=== PATIENT | female | born 1960 | race Caucasian/White ===

== ENCOUNTER 2017-02-22 12:48 | Inpatient (IN) | payer MEDICARE, SELFPAY ==
[2017-02-22] VITALS (14 sets, daily range): BP systolic 126–142; BP diastolic 58–65; PULSE 80–99; RESP 14–27; TEMP 36.4–36.9; O2SAT 86–100; BMI 34.7; BMI 34.6
--- NOTE | 2017-02-22 15:23 | EKG12_ITS ---
Test Reason : POSBLOOD CULTURE Blood Pressure : / mmHG Vent. Rate : 093 BPM Atrial Rate : 093 BPM P-R Int : 144 ms QRS Dur : 074 ms QT Int : 356 ms P-R-T Axes : 039 064 038 degrees QTc Int : 442 ms Normal sinus rhythm Nonspecific ST abnormality Abnormal ECG Confirmed by NEHA FARIAS, AYLEEN ([id number]), dictionary editor FAISAL CLEMENTE ([id number] on 02/26/2017 3:04:01 PM Referred By: LEONARD Confirmed By:AYLEEN SOLOMON MD
--- NOTE | 2017-02-22 16:03 | RAD_ITS ---
STUDY: X-RAY CHEST REASON FOR EXAM: Female, 56 years old. Cough TECHNIQUE: Single AP portable view of the chest. COMPARISON: 03/05/2015, 03/05/2016, 02/21/2017. FINDINGS: Continued extensive airspace disease throughout the right lung possibly slightly worse. Volume loss on the right. Probable small right effusion. Left lung is normal. Heart size normal. Bones and soft tissues unremarkable. RAD/Chest 1 View (Portable) IMPRESSION: Similar to worsening airspace disease throughout the right lung. Electronically Signed: Fernando Lamas MD at 16:41 EST , Service support ,
--- NOTE | 2017-02-22 16:10 | ED.VISSUMM ---
- ER Visit Summary Date of Service: 02/22/17 Chief Complaint: Positive blood culture History of Present Illness: The patient is a 56 F presenting after being called for positive blood culture. Patient was seen in the ED yesterday. She was diagnosed with influenza. She was started on Tamiflu. She is on chemotherapy with her last chemo being 2 weeks ago. She has a history of lung and endometrial cancer. She is on dialysis Sunday. She did receive her full dialysis today. She has been having fever and chills at home. Her temperature has been up to 100.9 at home. She complains of dyspnea and productive cough. Her blood culture from yesterday showed gram-positive rods. Physical Examination: Vitals are stable. Patient is afebrile. Alert no acute distress. HEENT exam is unremarkable. Neck is supple. Lungs rhonchi right lung, diminished lung sounds. Heart is regular rate and rhythm. Abdomen is soft nontender nondistended. Extremities are unremarkable. Skin is warm and dry. No focal neurologic deficit. Remainder of exam is unremarkable. Emergency Department Course and Treatment: EKG is sinus rate of 93 with no acute ischemic changes. Chest x-ray shows similar to worsening airspace disease right lung. Blood and urine cultures were sent. She is given Zosyn and Vancomycin IV. CBC shows white count 2.6, hemoglobin 8.1, platelets 149. INR is 1.1. Chemistries show BUN 22, creatinine 5.27. Lactic acid is normal. Discussed with Dr. Murphy for admission. Disposition: Admission Impression: Influenza, pneumonia, bacteremia This note was generated with [employer] dictation software. It may contain incorrect words, spelling, and punctuation that were not noted in review of the chart prior to signing ED Disposition - Plan for ED Patient: Chief Complaint: Abn Labs
[2017-02-22] MEDS: Piperacil/Tazobactam 3.375 GM/50 ML ML IV (16:32)
[2017-02-22 16:51] LABS: International Normalized Ratio 1.1; Prothrombin Time (Protime)PT. 13.7 SECONDS (11.7-14.9)
[2017-02-22 16:53] LABS: Partial Thromboplast Time 45.5 Seconds (24.1-36.2)
[2017-02-22 16:54] LABS: Absolute Lymphocyte Count 0.35 X10^3/ul (0.83-4.51); Absolute Neutrophil Count 1.9 X10^3/uL (2.0-7.7); Eosinophil# 0.09 X10^3/uL; Eosinophils% 3.5 % (0-5); Hematocrit 25.6 % (37-47); Hemoglobin 8.1 g/dl (12.0-15.0); Lymphocyte # 0.35 X10^3/ul (4.0); Lymphocyte % 13.7 % (19-41); Mean Corp Hgb Conc 31.6 g/gl (32-36); Mean Corpuscular Hgb 29.5 pg (27.0-32.0); Mean Corpuscular Volume 93.1 fL (81-99); Mean Platelet Vol. 9.5 fl (6.2-12.0); Monocyte# 0.27 X10^3/uL; Monocyte% 10.5 % (0-10); Neutrophil # 1.85 X10^3/uL (2.7-7.7); Neutrophil % 72.3 % (47-70); Platelet Count 149 K/mm3 (150-450); RBC Distribution Width CV 17.5 % (11.6-14.6); RBC Distribution Width SD 59.8 fl (35.1-43.9); Red Blood Count 2.75 M/mm3 (4.2-5.4); White Blood Count 2.6 K/mm3 (4.4-11.0)
[2017-02-22 17:00] LABS: Differential Indicated SCAN CRITERIA MET; POSITIVE COUNT NO; POSITIVE DIFFERENTIAL YES; POSITIVE MORPHOLOGY NO
[2017-02-22 17:10] LABS: Lactic Acid 0.8 mmol/L (0.4-2.0)
[2017-02-22 17:15] LABS: Differential Comment SCANNED
--- NOTE | 2017-02-22 18:04 | HP.PCM_ITS ---
Problem List (1) Influenza A Status: Acute Comment: 02/22/16 Influenza A (2) HCAP (healthcare-associated pneumonia) Status: Acute (3) Bacteremia Status: Acute Comment: 02/22/16 Bld Cx preliminary Gram positive keyla (4) End-stage renal disease on hemodialysis Status: Chronic (5) Endometrial cancer Status: Chronic Comment: Status post hysterectomy, cystectomy and partial colectomy due to metastatic disease (6) History of colostomy Status: Chronic (7) History of hysterectomy for cancer Status: Chronic (8) History of ileal conduit Status: Chronic (9) History of nephrectomy Status: Chronic (10) Hypertension Status: Chronic Qualifiers: Hypertension type: essential hypertension (11) Obesity (BMI 30-39.9) Status: Chronic History of Present Illness Date of Admission: 02/22/17 Chief Complaint: Cough, congestion, dyspnea, fever, chills. The patient is a 56 y/o F w/ PMHx: Endometrial CA, Colon CA s/p Colostomy and Ileal Conduit, Current Lung CA undergoing Chemotherapy w/ Dr. Arteaga (most recent 2 weeks prior), HTN, HLD, Obesity, ESRD on HD, AOCD who presents to the [facility] ED on 02/22/17 w/ history of ongoing productive cough, congestion, dyspnea, rhinorrhea, fever, chills progressively worsening since 02/19/17, seen in the ED on 02/21/17 with Dx Influenza A and discharge to home tamiflu; however, she did not improvement and noted worsened dyspnea sensation and cough. In the ED work- up included T 98.5, HR 91, BP 141/65, RR 18, 86% on RA-->100% on 2L NC, CBC w/ WBC 2.6, Hgb 8.1, Plts 149 with decreased ANC 1.9, unremarkable coags, CMP w/ CO2 34, BUN/Cr 22/5.27, LA 0.8, 1/2 Bld Cx 02/21/17 with GPR, repeat Bld Cx x 2 pending upon current presentation, CXR with worsened appearance R lung, does have chronic changes but worsened appearance, concern for PNA. In the ED patient administered vanc and zosyn. Past Medical History Past Medical History (Chronic Problems): Chronic Problems Endometrial cancer (Chronic) Status post hysterectomy, cystectomy and partial colectomy due to metastatic disease End-stage renal disease on hemodialysis (Chronic) History of hysterectomy for cancer (Chronic) History of nephrectomy (Chronic) Anemia of chronic renal failure, stage 5 (Chronic) Anemia of chronic renal failure (Chronic) Hypertension (Chronic) Obesity (BMI 30-39.9) (Chronic) History of colostomy (Chronic) History of ileal conduit (Chronic) Allergies No Known Allergies Allergy (Verified 02/22/17 12:48) Home Medications: Ambulatory Orders Medication Instructions Recorded Calcium Acetate [Phoslo Gel Cap] 2 cap PO DAILY 07/23/14 Docusate Sodium [Colace] 100 mg PO BID 07/23/14 Folic Acid 1 mg PO DAILY@0800 07/23/14 Amlodipine [Norvasc] 10 mg PO DAILY 02/14/15 Lisinopril [Zestril] 20 mg PO BID 02/14/15 Ergocalciferol [Vitamin D] 50,000 unit PO QMONTH 03/02/16 Famotidine [Pepcid AC] 10 mg PO DAILY 03/02/16 Acetaminophen [Tylenol] 650 mg PO BID PRN 02/16/17 Oseltamivir Phosphate [Tamiflu] 30 mg PO BID 02/22/17 Surgical History: hysterectomy - for cervical cancer, - - Left nephrectomy for cancer with rt ileoconduit, Colostomy, Hysterectomy with BL RAHEEL, AVF RUE. 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 Denies: Weight Change HEENT: Reports: Nasal Congestion, Post Nasal Drip, Sinus Congestion, Sore Throat. Denies: Head Aches, Sinus Drainage Cardiovascular: Denies: Chest Pain, Palpitations Respiratory: Reports: Cough, Shortness of Breath, Shortness of breath at rest, Shortness of breath upon exertion, Sputum production Gastrointestinal: Denies: Abdominal Pain, Nausea, Vomiting Genitourinary: Denies: Dysuria Musculoskeletal: Reports: Back Pain. Denies: Joint Pain, Joint Tenderness Skin: Denies: Rash, Wounds Neurological: Denies: Numbness, Tingling, Focal weakness Psychiatric: Denies: Anxiety, Depression, Homicidal Ideations, Suicidal Ideations Hematologic/ Lymphatic: Denies: Easy Bruising, Easy Bleeding VTE Information - Inpt Only VTE Present on Admission: No VTE Mechan Device Prophylaxis: SCD's VTE Pharm Prophylaxis ordered?: Yes Subjective: Seated upright in the ED bed, fatigued appearance, ill appearing. Objective: Physical Examination: General: awake, alert, oriented x 3 and cooperative, seated upright in the ED be , fatigued appearance, ill appearing. Skin: normal color, turgor, no icterus, cyanosis. HEENT: AT/NC, EOMI, PERRLA, dry MM, posterior OP erythema, no carotid bruits or JVD noted. Lungs: Severely diminished, > R, coarse BL, > R, poor effort, no wheezing. Heart: Regular rate and rhythm; no gallop, rub audible. Abdomen: soft, obese, colostomy and ilea conduit in place, NTTP, ND, normal BS, no HSM. Extremities: no cyanosis, clubbing, or edema, RUE AVF + thrill. Neurological: patient awake, alert, oriented x 3; cognitive function intact; pupils equally reactive to light and accomodation; cranial nerves II-XII grossly normal, moving all 4 extremities, no focal deficits, strength severely globally decreased secondary to acute presentation. Psychiatric: affect appears flat, fatigued, no acute evidence of depressive or anxiety feelings. - Physical Exam Vital Signs Temp Pulse Resp BP Pulse Ox 98.2 F 80 27 H 126/64 H 86 02/22/17 15:56 02/22/17 17:23 02/22/17 17:23 02/22/17 17:23 02/22/17 17:23 Oxygen Flow Rate 2 Oxygen Delivery Method Nasal Cannula Weight: 189 lb 13.088 oz Body Mass Index (BMI) 34.7 Laboratory Tests Past 24 Hrs 02/22/17 02/22/17 02/22/17 16:15 16:15 16:15 WBC 2.6 L RBC 2.75 L Hgb 8.1 L Hct 25.6 L MCV 93.1 MCH 29.5 MCHC 31.6 L RDW 17.5 H RDW Differential 59.8 H Plt Count 149 L MPV 9.5 Immature Gran % (Auto) 0.000 Neut % (Auto) 72.3 H Lymph % (Auto) 13.7 L [place] % (Auto) 10.5 H Eos % (Auto) 3.5 Baso % (Auto) 0.0 Absolute Neuts (auto) 1.9 L Absolute Lymphs (auto) 0.35 L Total Counted Not Reportable Differential Comment SCANNED PT 13.7 INR 1.1 APTT 45.5 H Sodium Cancelled Potassium Cancelled Chloride Cancelled Carbon Dioxide Cancelled Anion Gap Cancelled BUN Cancelled Creatinine Cancelled Estim Creat Clear Calc Cancelled Est GFR (MDRD) Af Amer Cancelled Est GFR (MDRD) Non-Af Cancelled BUN/Creatinine Ratio Cancelled Glucose Cancelled Lactic Acid Calcium Cancelled Total Bilirubin Cancelled AST Cancelled ALT Cancelled Alkaline Phosphatase Cancelled Total Protein Cancelled Albumin Cancelled Globulin Cancelled Albumin/Globulin Ratio Cancelled 02/22/17 02/22/17 16:15 17:30 WBC RBC Hgb Hct MCV MCH MCHC RDW RDW Differential Plt Count MPV Immature Gran % (Auto) Neut % (Auto) Lymph % (Auto) [place] % (Auto) Eos % (Auto) Baso % (Auto) Absolute Neuts (auto) Absolute Lymphs (auto) Total Counted Differential Comment PT INR APTT Sodium Pending Potassium Pending Chloride Pending Carbon Dioxide Pending Anion Gap Pending BUN Pending Creatinine Pending Estim Creat Clear Calc Est GFR (MDRD) Af Amer Pending Est GFR (MDRD) Non-Af Pending BUN/Creatinine Ratio Pending Glucose Pending Lactic Acid 0.8 Calcium Pending Total Bilirubin Pending AST Pending ALT Pending Alkaline Phosphatase Pending Total Protein Pending Albumin Pending Globulin Albumin/Globulin Ratio Assessment/Plan The patient is a 56 y/o F w/ PMHx: Endometrial CA, Colon CA s/p Colostomy and Ileal Conduit, Current Lung CA undergoing Chemotherapy w/ Dr. Arteaga (most recent 2 weeks prior), HTN, HLD, Obesity, ESRD on HD, AOCD who presents to the [facility] ED on 02/22/17 w/ history of ongoing productive cough, congestion, dyspnea, rhinorrhea, fever, chills progressively worsening since 02/19/17, seen in the ED on 02/21/17 with Dx Influenza A and discharge to home tamiflu; however, she did not improvement and noted worsened dyspnea sensation and cough. (1) Acute Bacteremia secondary to Acute Influenza A Viral Syndrome with suspected concurrent HCAP Pneumonia: Will admit to [facility] on telemetry, maintain on oxygen with wean as tolerated to room air, continue ATC duonebs, PRN albuterol, maintained on IV Zosyn and Vancomycin, Tamiflu, HOB, IS parameters w/ pending sputum cultures and urine antigens. Bld cx x 2 obtained in the ED with 02/20 Bld C x + GPR. ID consulted given presentation. (2) Lung Cancer, Unclear Type and Unclear Staging: Ongoing chemotherapy, last 2 weeks prior, ongoing 2nd hand tobacco exposure, following w/ Dr. Arteaga. Will obtain mag, phos, supplement if appropriate. (3) Hx Endometrial, Cervical CA, Colon CA: Remission. s/p Nephrectomy, Colon Resection, Bladder resection w/ placement ileal conduit and colostomy. 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 (4) ESRD: ESRD on HD, HD scheduled T, TH, Sat. Nephrology consulted. Gently hydrating given presentation. (5) AOCD: Admission Hgb 8.1, noted recent transfusion history. (6) GERD: Famotidine. (7) DVT Prophylaxis: SCDs, heparin. Code Visit Inpatient E&M: 91454 Init Hosp L3
[2017-02-22 18:16] LABS: ALB/GLOB Ratio 0.7 RATIO (0.9-2.4); AST(SGOT) 17 U/L (15-37); Alanine Aminotransfer ALT/SGPT 14 U/L (12-78); Albumin, Serum 2.8 g/dL (3.4-5.0); Alkaline Phosphatase 81 U/L (45-117); Anion Gap 6 (5-15); BUN 22 mg/dL (7-18); BUN/Creat Ratio 4.2 RATIO (10-20); Calcium,Total 8.2 mg/dL (8.5-10.1); Chloride 99 mmol/L (98-107); Creatinine, Serum 5.27 mg/dL (0.55-1.02); EST Glomerular Filtration Rate 9 mL/min (>60); Est Glom Filt Rate - Afr Amer 11 mL/min (>60); Estimated Creatinine Clearance 9.65 ml/min; Glucose 84 mg/dL (70-110); Potassium 3.9 mmol/L (3.5-5.1); Protein, Total 6.8 g/dL (6.4-8.2); Sodium Level 139 mmol/L (136-145)
--- NOTE | 2017-02-22 18:35 | NURSING ---
MED SURG HCAP, FLU A, BACTEREMIA WHITE
[2017-02-22] MEDS: 0.9% Normal Saline 1,000 ML 75 ML IV (20:15)
[2017-02-22 20:25] LABS: Phosphorus 2.9 mg/dL (2.5-4.9)
[2017-02-22] MEDS: Heparin Injection 5,000 UNITS/ML Syringe 5000 UNITS SC (21:55)
[2017-02-22] MEDS: Lisinopril 20 MG Tablet PO (21:55)
[2017-02-22] MEDS: Oseltamivir Phosphate 30 MG Capsule PO (21:55)
[2017-02-22] MEDS: Famotidine 20 MG Tablet PO (21:55)
[2017-02-22] MEDS: guaiFENesin 600 MG Tablet 1200 MG PO (21:55)
[2017-02-22] MEDS: Ipratropium/Albuterol Sulfate 3 ML AMPUL.NEB INHALATION (22:25)
[2017-02-23] VITALS (16 sets, daily range): BP systolic 123–142; BP diastolic 56–63; PULSE 75–106; RESP 16–20; TEMP 36.3–37.2; O2SAT 92–95
[2017-02-23] MEDS: Acetaminophen 325 MG Tablet 650 MG PO (00:08)
[2017-02-23] MEDS: Ipratropium/Albuterol Sulfate 3 ML AMPUL.NEB INHALATION ×6 (02:31→23:08)
[2017-02-23 06:16] LABS: Absolute Lymphocyte Count 0.41 X10^3/ul (0.83-4.51); Absolute Neutrophil Count 1.7 X10^3/uL (2.0-7.7); Basophil# 0.01 X10^3/uL; Basophil% 0.4 % (0-1); Eosinophil# 0.07 X10^3/uL; Hematocrit 23.4 % (37-47); Hemoglobin 7.2 g/dl (12.0-15.0); Lymphocyte # 0.41 X10^3/ul (4.0); Lymphocyte % 17.4 % (19-41); Mean Corp Hgb Conc 30.8 g/gl (32-36); Mean Corpuscular Volume 94.4 fL (81-99); Mean Platelet Vol. 9.4 fl (6.2-12.0); Monocyte# 0.14 X10^3/uL; Neutrophil # 1.71 X10^3/uL (2.7-7.7); Neutrophil % 72.8 % (47-70); Platelet Count 115 K/mm3 (150-450); RBC Distribution Width CV 17.7 % (11.6-14.6); RBC Distribution Width SD 61.3 fl (35.1-43.9); Red Blood Count 2.48 M/mm3 (4.2-5.4); White Blood Count 2.4 K/mm3 (4.4-11.0)
[2017-02-23 06:23] LABS: Differential Indicated SCAN CRITERIA MET; POSITIVE COUNT NO; POSITIVE DIFFERENTIAL YES; POSITIVE MORPHOLOGY NO
[2017-02-23 06:36] LABS: Differential Comment SCANNED
[2017-02-23 07:26] LABS: Vancomycin, Random Level 19.3 ug/mL (0.0-15.0)
[2017-02-23 07:37] LABS: Anion Gap 12 (5-15); BUN 30 mg/dL (7-18); BUN/Creat Ratio 4.8 RATIO (10-20); Calcium,Total 7.7 mg/dL (8.5-10.1); Chloride 100 mmol/L (98-107); Creatinine, Serum 6.27 mg/dL (0.55-1.02); EST Glomerular Filtration Rate 7 mL/min (>60); Est Glom Filt Rate - Afr Amer 9 mL/min (>60); Estimated Creatinine Clearance 8.11 ml/min; Glucose 79 mg/dL (70-110); Potassium 4.1 mmol/L (3.5-5.1); Sodium Level 141 mmol/L (136-145)
--- NOTE | 2017-02-23 09:49 | CASEMGMT ---
RN CM assessment complete. See attached link for full assessment. Disposition Plan: Home Transition Planning/Care Coordination Needs: Patient denies home-going needs. RN CM will continue to follow patient throughout hospital course and will provide case management interventions should needs arise.
[2017-02-23] MEDS: Ondansetron 4 MG/2 ML Vial IV (09:59)
[2017-02-23] MEDS: 0.9% Normal Saline 1,000 ML 75 ML IV (09:59)
[2017-02-23] MEDS: Folic Acid 1 MG Tablet PO (09:59)
[2017-02-23] MEDS: Calcium Acetate 667 MG Capsule 1334 MG PO (09:59)
[2017-02-23] MEDS: guaiFENesin 600 MG Tablet 1200 MG PO ×2 (10:00→22:00)
[2017-02-23] MEDS: Heparin Injection 5,000 UNITS/ML Syringe 5000 UNITS SC ×2 (10:00→22:01)
[2017-02-23] MEDS: Piperacil/Tazobactam 3.375 GM/50 ML ML IV ×2 (10:01)
[2017-02-23] MEDS: Famotidine 20 MG Tablet PO ×2 (10:01→22:00)
[2017-02-23] MEDS: Oseltamivir Phosphate 30 MG Capsule PO (10:01)
[2017-02-23] MEDS: Lisinopril 20 MG Tablet PO ×2 (10:01→22:00)
[2017-02-23] MEDS: amLODIPine 5 MG Tablet 10 MG PO (10:01)
--- NOTE | 2017-02-23 11:45 | CON.PCM_ITS ---
Reason for Consult: Influenza A/pneumonia/bacteremia History of Present Illness: The patient is a 56 year old F [] This is a 56-year-old white female with multiple comorbidities including multiple malignancies including cervical cancer has undergone bowel surgery with a colostomy as well as a urostomy at this time. More recently his developed lung cancer involving her right lung and is currently receiving on chemotherapy who presents with flulike illness low-grade intermittent fevers for the past week. She was found to have a positive influenza A respiratory specimen and was treated with Tamiflu. Her symptoms continued and she was subsequently admitted. She does have an abnormal chest x-ray with extensive right lung disease but she also has lung carcinoma in her right lung. Interestingly her urine strep pneumoniae antigen was positive. Patient also has a positive blood culture for gram-positive keyla. She is currently comfortable on room air denies any pleuritic chest pain no hemoptysis denies any significant gastrointestinal distress she is otherwise hemodynamically stable. Her antimicrobial regimen I reviewed. She has no known drug allergies. - Medical History Past Medical History (Chronic Problems): Chronic Problems Endometrial cancer (Chronic) Status post hysterectomy, cystectomy and partial colectomy due to metastatic disease End-stage renal disease on hemodialysis (Chronic) History of hysterectomy for cancer (Chronic) History of nephrectomy (Chronic) Anemia of chronic renal failure, stage 5 (Chronic) Anemia of chronic renal failure (Chronic) Hypertension (Chronic) Obesity (BMI 30-39.9) (Chronic) History of colostomy (Chronic) History of ileal conduit (Chronic) Allergies/Adverse Reactions: Allergies No Known Allergies Allergy (Verified 02/22/17 12:48) Home Medications: Ambulatory Orders Medication Instructions Recorded Calcium Acetate [Phoslo Gel Cap] 2 cap PO DAILY 07/23/14 Docusate Sodium [Colace] 100 mg PO BID 07/23/14 Folic Acid 1 mg PO DAILY@0800 07/23/14 Amlodipine [Norvasc] 10 mg PO DAILY 02/14/15 Lisinopril [Zestril] 20 mg PO BID 02/14/15 Ergocalciferol [Vitamin D] 50,000 unit PO QMONTH 03/02/16 Famotidine [Pepcid AC] 10 mg PO DAILY 03/02/16 Acetaminophen [Tylenol] 650 mg PO BID PRN 02/16/17 Oseltamivir Phosphate [Tamiflu] 30 mg PO BID 02/22/17 Vital Signs Temp Pulse Resp BP Pulse Ox 98.1 F 79 18 135/57 H 93 02/23/17 10:04 02/23/17 10:55 02/23/17 10:55 02/23/17 10:04 02/23/17 10:55 Oxygen Flow Rate 92 Oxygen Delivery Method Room Air Weight: 85.9 kg Body Mass Index (BMI) 34.6 Laboratory Tests Past 24 Hrs 02/23/17 02/23/17 02/23/17 05:26 05:26 05:26 WBC 2.4 L RBC 2.48 L Hgb 7.2 L Hct 23.4 L MCV 94.4 MCH 29.0 MCHC 30.8 L RDW 17.7 H RDW Differential 61.3 H Plt Count 115 L MPV 9.4 Immature Gran % (Auto) 0.400 Neut % (Auto) 72.8 H Lymph % (Auto) 17.4 L [place] % (Auto) 6.0 Eos % (Auto) 3.0 Baso % (Auto) 0.4 Absolute Neuts (auto) 1.7 L Absolute Lymphs (auto) 0.41 L Total Counted Not Reportable Differential Comment SCANNED Diff Path Review May foll Sodium 141 Potassium 4.1 Chloride 100 Carbon Dioxide 29.0 Anion Gap 12 BUN 30 H Creatinine 6.27 H Estim Creat Clear Calc 8.11 Est GFR (MDRD) Af Amer 9 L Est GFR (MDRD) Non-Af 7 L BUN/Creatinine Ratio 4.8 L Glucose 79 Calcium 7.7 L Random Vancomycin 19.3 H - Other Studies Radiology: [] Other Studies: [] Route of nutrition/ use of supplements: [] Nutritional Intake: [] IV Site: [] Saavedra Catheter: [] Patient is alert does not appear toxic lungs have some coarse breath sounds in right lung heart exam S1-S2 abdomen soft no focal tenderness obese with a colostomy in place as well as a urostomy.. I did review her chest x-ray which shows right lung infiltrate/opacity. CBC and chemistry profile reviewed. Microbiological data also reviewed - Assessment/Plan Antibiotics: [] Assessment/Plan: [] Influenza pneumonia with concern of bacterial superinfection with a positive urine strep pneumoniae antigen. At this point will treat with antiviral therapy as well as ceftriaxone 2 g IV daily. The significance of the gram- positive keyla is unclear I suspect it could be a skin pathogen. Current antibiotic therapy in the form of ceftriaxone and Tamiflu. Continue supportive care.
[2017-02-23 13:22] LABS: Pathologist Review Reviewed
[2017-02-23 13:25] LABS: Pathologist Review Reviewed
--- NOTE | 2017-02-23 14:50 | PCM.CONS.R ---
Problem List (1) End-stage renal disease on hemodialysis Status: Chronic Consultation - Renal 02/23/17 PCP/ Referring MD: Requesting physician: [ESRD Primary care physician: Lawrence Dozier Reason for Consultation:: ESRD - History of Present Illness History of Present Illness: The patient is a 56 year old F well known to us. ESRD on HD TTS schedule. Last HD was yesterday H/o uterine ca s/p colectomy recent diagnosis of lung ca, on chemo Presented with fever, cough Bacteremia - gm positive rods Currently denies any complaints - Allergies Allergies: Allergies No Known Allergies Allergy (Verified 02/22/17 12:48) - Current Medications Current Medications: Current Medications Acetaminophen (Tylenol) 650 mg PO Q4H PRN PRN PRN Reason: FEVER Last Admin: 02/23/17 00:08 Dose: 650 mg Acetaminophen (Tylenol) 650 mg PO Q6H PRN PRN PRN Reason: Mild Pain (scale 0-3)/T>100.7 Albuterol Sulfate (Ventolin Aerosols) 2.5 mg INHALATION Q2H PRN PRN PRN Reason: SHORTNESS OF BREATH Albuterol/Ipratropium (Duoneb) 3 ml INHALATION Q4H.RT [facility] Last Admin: 02/23/17 10:53 Dose: 3 ml Amlodipine Besylate (Norvasc) 10 mg PO DAILY [facility] Last Admin: 02/23/17 10:01 Dose: 10 mg Calcium Acetate (Phoslo Gel Cap) 1,334 mg PO DAILY@0800 [facility] Last Admin: 02/23/17 09:59 Dose: 1,334 mg Docusate Sodium (Colace) 100 mg PO BID [facility] Last Admin: 02/23/17 10:00 Dose: Not Given Famotidine (Pepcid) 20 mg PO BID [facility] Last Admin: 02/23/17 10:01 Dose: 20 mg Folic Acid (Folic Acid) 1 mg PO DAILY@0800 [facility] Last Admin: 02/23/17 09:59 Dose: 1 mg Guaifenesin (Mucinex) 1,200 mg PO BID [facility] Last Admin: 02/23/17 10:00 Dose: 1,200 mg Heparin Sodium (Porcine) () 5,000 units SC BID [facility] Last Admin: 02/23/17 10:00 Dose: 5,000 units Sodium Chloride () 1,000 mls @ 75 mls/hr IV .[id number] [facility] Last Admin: 02/23/17 09:59 Dose: 75 mls/hr Ceftriaxone Sodium 2 gm/ N/A 20 mls @ 240 mls/hr IV Q24 [facility] Lisinopril (Zestril) 20 mg PO BID [facility] Last Admin: 02/23/17 10:01 Dose: 20 mg Magnesium Hydroxide (Milk Of Magnesia) 30 ml PO DAILY PRN PRN PRN Reason: Constipation Morphine Sulfate (Morphine) 2 - 4 mg IV Q3H PRN PRN PRN Reason: Severe Pain (pain scale 6-10) Morphine Sulfate (Morphine) 1 - 2 mg IV Q4H PRN PRN PRN Reason: Moderate Pain (pain scale 4-5) Nutritional Formula (Nepro Carb Steady) 120 ml PO 4X/DAY [facility] Last Admin: 02/23/17 13:39 Dose: Not Given Ondansetron HCl (Zofran) 4 mg IV Q8H PRN PRN PRN Reason: Nausea Last Admin: 02/23/17 09:59 Dose: 4 mg Oseltamivir Phosphate (Tamiflu) 30 mg PO DAILY [facility] Stop: 02/26/17 10:01 Last Admin: 02/23/17 10:01 Dose: 30 mg Oxycodone HCl (Oxyir) 5 mg PO Q4H PRN PRN PRN Reason: Moderate Pain (pain scale 4-5) Sodium Chloride () 5 - 30 ml IV UD PRN PRN Reason: SALINE FLUSH - Past Medical History Past Medical History (Chronic Problems): Chronic Problems Endometrial cancer (Chronic) Status post hysterectomy, cystectomy and partial colectomy due to metastatic disease End-stage renal disease on hemodialysis (Chronic) History of hysterectomy for cancer (Chronic) History of nephrectomy (Chronic) Anemia of chronic renal failure, stage 5 (Chronic) Anemia of chronic renal failure (Chronic) Hypertension (Chronic) Obesity (BMI 30-39.9) (Chronic) History of colostomy (Chronic) History of ileal conduit (Chronic) - Past Surgical History Surgical History: hysterectomy - for cervical cancer, - - Left nephrectomy for cancer with rt ileoconduit, Colostomy, Hysterectomy with BL RAHEEL, AVF RUE. - Social History Smoking Status: Former smoker Alcohol: None Drugs: None - Family History Paternal History Items: No pertinent history Maternal History Items: No pertinent history Review of Systems Constitutional: Denies: Chills, Fever, Weight Change HEENT: Denies: Head Aches, Sinus Congestion, Sinus Drainage Cardiovascular: Denies: Chest Pain, Palpitations Respiratory: Denies: Cough, Shortness of breath at rest, Sputum production Gastrointestinal: Denies: Abdominal Pain, Nausea, Vomiting Genitourinary: Denies: Dysuria Musculoskeletal: Denies: Joint Pain, Joint Tenderness Skin: Denies: Rash, Wounds Neurological: Denies: Numbness, Tingling, Focal weakness Psychiatric: Denies: Anxiety, Depression, Homicidal Ideations, Suicidal Ideations Hematologic/ Lymphatic: Denies: Easy Bruising, Easy Bleeding - Physical Exam General: Alert, Oriented x3, Cooperative HEENT: Atraumatic, PERRLA, EOMI, Normocephalic Neck: Supple, No JVD, Negative Carotid Bruits Lungs: Clear to auscultation, Normal air movement Cardiovascular: Regular rate, No murmurs Abdomen: Bowel Sounds Present, Soft, Non Tender Extremities: No edema, Capillary Refill Less than 3 Seconds Skin: No rashes, No breakdown Musculoskeletal: No Tenderness to Palpation of Joints or Extremities Neurological: Cranial nerves II-XII grossly intact Psych/Mental Status: Normal Affect, Appropriate Vital Signs Temp Pulse Resp BP Pulse Ox 98.1 F 88 20 H 123/63 H 93 02/23/17 14:00 02/23/17 14:00 02/23/17 14:00 02/23/17 14:00 02/23/17 14:00 Oxygen Flow Rate 92 Oxygen Delivery Method Room Air Weight: 85.9 kg Body Mass Index (BMI) 34.6 Intake and Output for Last 24 Hours 02/21/17 02/22/17 02/23/17 23:59 23:59 23:59 Intake Total 2023 Output Total 50 / 50 Balance 1973 Laboratory Tests Past 24 Hrs 02/23/17 02/23/17 02/23/17 05:26 05:26 05:26 WBC 2.4 L RBC 2.48 L Hgb 7.2 L Hct 23.4 L MCV 94.4 MCH 29.0 MCHC 30.8 L RDW 17.7 H RDW Differential 61.3 H Plt Count 115 L MPV 9.4 Immature Gran % (Auto) 0.400 Neut % (Auto) 72.8 H Lymph % (Auto) 17.4 L [place] % (Auto) 6.0 Eos % (Auto) 3.0 Baso % (Auto) 0.4 Absolute Neuts (auto) 1.7 L Absolute Lymphs (auto) 0.41 L Total Counted Not Reportable Differential Comment SCANNED Diff Path Review Reviewed Sodium 141 Potassium 4.1 Chloride 100 Carbon Dioxide 29.0 Anion Gap 12 BUN 30 H Creatinine 6.27 H Estim Creat Clear Calc 8.11 Est GFR (MDRD) Af Amer 9 L Est GFR (MDRD) Non-Af 7 L BUN/Creatinine Ratio 4.8 L Glucose 79 Calcium 7.7 L Random Vancomycin 19.3 H Assessment/Plan ESRD. HD tomorrow as per schedule RLL pneumonia. Flu positive. superimposed bacterial. ID on consult Anemia. Hb has been worsening since she started chemo. Hb at 7.2 now. transfuse if less than 7
--- NOTE | 2017-02-23 14:53 | CON.PCM_ITS ---
Problem List (1) End-stage renal disease on hemodialysis Status: Chronic Consultation - Renal 02/23/17 PCP/ Referring MD: Requesting physician: [ESRD Primary care physician: Lawrence Dozier Reason for Consultation:: ESRD - History of Present Illness History of Present Illness: The patient is a 56 year old F well known to us. ESRD on HD TTS schedule. Last HD was yesterday H/o uterine ca s/p colectomy recent diagnosis of lung ca, on chemo Presented with fever, cough Bacteremia - gm positive rods Currently denies any complaints - Allergies Allergies: Allergies No Known Allergies Allergy (Verified 02/22/17 12:48) - Current Medications Current Medications: Current Medications Acetaminophen (Tylenol) 650 mg PO Q4H PRN PRN PRN Reason: FEVER Last Admin: 02/23/17 00:08 Dose: 650 mg Acetaminophen (Tylenol) 650 mg PO Q6H PRN PRN PRN Reason: Mild Pain (scale 0-3)/T>100.7 Albuterol Sulfate (Ventolin Aerosols) 2.5 mg INHALATION Q2H PRN PRN PRN Reason: SHORTNESS OF BREATH Albuterol/Ipratropium (Duoneb) 3 ml INHALATION Q4H.RT [facility] Last Admin: 02/23/17 10:53 Dose: 3 ml Amlodipine Besylate (Norvasc) 10 mg PO DAILY [facility] Last Admin: 02/23/17 10:01 Dose: 10 mg Calcium Acetate (Phoslo Gel Cap) 1,334 mg PO DAILY@0800 [facility] Last Admin: 02/23/17 09:59 Dose: 1,334 mg Docusate Sodium (Colace) 100 mg PO BID [facility] Last Admin: 02/23/17 10:00 Dose: Not Given Famotidine (Pepcid) 20 mg PO BID [facility] Last Admin: 02/23/17 10:01 Dose: 20 mg Folic Acid (Folic Acid) 1 mg PO DAILY@0800 [facility] Last Admin: 02/23/17 09:59 Dose: 1 mg Guaifenesin (Mucinex) 1,200 mg PO BID [facility] Last Admin: 02/23/17 10:00 Dose: 1,200 mg Heparin Sodium (Porcine) () 5,000 units SC BID [facility] Last Admin: 02/23/17 10:00 Dose: 5,000 units Sodium Chloride () 1,000 mls @ 75 mls/hr IV .[id number] [facility] Last Admin: 02/23/17 09:59 Dose: 75 mls/hr Ceftriaxone Sodium 2 gm/ N/A 20 mls @ 240 mls/hr IV Q24 [facility] Lisinopril (Zestril) 20 mg PO BID [facility] Last Admin: 02/23/17 10:01 Dose: 20 mg Magnesium Hydroxide (Milk Of Magnesia) 30 ml PO DAILY PRN PRN PRN Reason: Constipation Morphine Sulfate (Morphine) 2 - 4 mg IV Q3H PRN PRN PRN Reason: Severe Pain (pain scale 6-10) Morphine Sulfate (Morphine) 1 - 2 mg IV Q4H PRN PRN PRN Reason: Moderate Pain (pain scale 4-5) Nutritional Formula (Nepro Carb Steady) 120 ml PO 4X/DAY [facility] Last Admin: 02/23/17 13:39 Dose: Not Given Ondansetron HCl (Zofran) 4 mg IV Q8H PRN PRN PRN Reason: Nausea Last Admin: 02/23/17 09:59 Dose: 4 mg Oseltamivir Phosphate (Tamiflu) 30 mg PO DAILY [facility] Stop: 02/26/17 10:01 Last Admin: 02/23/17 10:01 Dose: 30 mg Oxycodone HCl (Oxyir) 5 mg PO Q4H PRN PRN PRN Reason: Moderate Pain (pain scale 4-5) Sodium Chloride () 5 - 30 ml IV UD PRN PRN Reason: SALINE FLUSH - Past Medical History Past Medical History (Chronic Problems): Chronic Problems Endometrial cancer (Chronic) Status post hysterectomy, cystectomy and partial colectomy due to metastatic disease End-stage renal disease on hemodialysis (Chronic) History of hysterectomy for cancer (Chronic) History of nephrectomy (Chronic) Anemia of chronic renal failure, stage 5 (Chronic) Anemia of chronic renal failure (Chronic) Hypertension (Chronic) Obesity (BMI 30-39.9) (Chronic) History of colostomy (Chronic) History of ileal conduit (Chronic) - Past Surgical History Surgical History: hysterectomy - for cervical cancer, - - Left nephrectomy for cancer with rt ileoconduit, Colostomy, Hysterectomy with BL RAHEEL, AVF RUE. - Social History Smoking Status: Former smoker Alcohol: None Drugs: None - Family History Paternal History Items: No pertinent history Maternal History Items: No pertinent history Review of Systems Constitutional: Denies: Chills, Fever, Weight Change HEENT: Denies: Head Aches, Sinus Congestion, Sinus Drainage Cardiovascular: Denies: Chest Pain, Palpitations Respiratory: Denies: Cough, Shortness of breath at rest, Sputum production Gastrointestinal: Denies: Abdominal Pain, Nausea, Vomiting Genitourinary: Denies: Dysuria Musculoskeletal: Denies: Joint Pain, Joint Tenderness Skin: Denies: Rash, Wounds Neurological: Denies: Numbness, Tingling, Focal weakness Psychiatric: Denies: Anxiety, Depression, Homicidal Ideations, Suicidal Ideations Hematologic/ Lymphatic: Denies: Easy Bruising, Easy Bleeding - Physical Exam General: Alert, Oriented x3, Cooperative HEENT: Atraumatic, PERRLA, EOMI, Normocephalic Neck: Supple, No JVD, Negative Carotid Bruits Lungs: Clear to auscultation, Normal air movement Cardiovascular: Regular rate, No murmurs Abdomen: Bowel Sounds Present, Soft, Non Tender Extremities: No edema, Capillary Refill Less than 3 Seconds Skin: No rashes, No breakdown Musculoskeletal: No Tenderness to Palpation of Joints or Extremities Neurological: Cranial nerves II-XII grossly intact Psych/Mental Status: Normal Affect, Appropriate Vital Signs Temp Pulse Resp BP Pulse Ox 98.1 F 88 20 H 123/63 H 93 02/23/17 14:00 02/23/17 14:00 02/23/17 14:00 02/23/17 14:00 02/23/17 14:00 Oxygen Flow Rate 92 Oxygen Delivery Method Room Air Weight: 85.9 kg Body Mass Index (BMI) 34.6 Intake and Output for Last 24 Hours 02/21/17 02/22/17 02/23/17 23:59 23:59 23:59 Intake Total 2023 Output Total 50 / 50 Balance 1973 Laboratory Tests Past 24 Hrs 02/23/17 02/23/17 02/23/17 05:26 05:26 05:26 WBC 2.4 L RBC 2.48 L Hgb 7.2 L Hct 23.4 L MCV 94.4 MCH 29.0 MCHC 30.8 L RDW 17.7 H RDW Differential 61.3 H Plt Count 115 L MPV 9.4 Immature Gran % (Auto) 0.400 Neut % (Auto) 72.8 H Lymph % (Auto) 17.4 L [place] % (Auto) 6.0 Eos % (Auto) 3.0 Baso % (Auto) 0.4 Absolute Neuts (auto) 1.7 L Absolute Lymphs (auto) 0.41 L Total Counted Not Reportable Differential Comment SCANNED Diff Path Review Reviewed Sodium 141 Potassium 4.1 Chloride 100 Carbon Dioxide 29.0 Anion Gap 12 BUN 30 H Creatinine 6.27 H Estim Creat Clear Calc 8.11 Est GFR (MDRD) Af Amer 9 L Est GFR (MDRD) Non-Af 7 L BUN/Creatinine Ratio 4.8 L Glucose 79 Calcium 7.7 L Random Vancomycin 19.3 H Assessment/Plan ESRD. HD tomorrow as per schedule RLL pneumonia. Flu positive. superimposed bacterial. ID on consult Anemia. Hb has been worsening since she started chemo. Hb at 7.2 now. transfuse if less than 7
--- NOTE | 2017-02-23 19:20 | PCM.PROGNOTE ---
Subjective: Patient is a 56-year-old female with a past medical history of endometrial cancer, colostomy, ileal conduit, nephrectomy, recent diagnosis of lung cancer now on chemotherapy, hypertension, end stage renal disease on hemodialysis and obesity who presented to the emergency department at [facility] on 02/22/2017 with complaints of cough, congestion, shortness of breath, fever and chills. She had been seen in the emergency room on 02/21/2017 and diagnosed with acute influenza A. 1 of 2 blood cultures done at that time was positive for a gram-positive keyla. Vital signs at presentation to the emergency room were temp 98.5, heart rate 91, blood pressure 141/65, respiratory rate 18 and she was 86% on room air. Significant lab included a white blood cell count of 2.6, hemoglobin 8.1 and platelets of 149,000. Differential showed 72% neutrophils. Serum bicarb was increased at 34 and the BUN was 22 with a creatinine of 5.27. LFTs were within normal limits. Chest x-ray showed continued extensive airspace disease throughout the right lung, possibly worse. She was admitted to the hospital with a diagnosis of suspected pneumonia and hypoxemia. Blood cultures were repeated and she was started on Zosyn and IV vancomycin. Consultation was obtained with Dr. Jadiel Maier from infectious disease today. Since she did not appear toxic he recommended continued antiviral therapy with Tamiflu and discontinuation of Zosyn and vancomycin in favor of ceftriaxone. She was also seen by Dr. King today and will have hemodialysis on Sunday. She has been afebrile since admission and vital signs are stable. Currently she is 93% saturated on room air. Lab today shows persistent leukopenia with a white blood cell count of 2.4. Hemoglobin is low at 7.2 today and platelets are down to 115,000. Electrolytes are within normal limits. Cough is non-productive. Denies CP, N/V, diarrhea, abdominal pain. She still has SOB. - Physical Exam General: Alert, Oriented x3, Cooperative, No apparent distress, - - Nontoxic-appearing HEENT: Atraumatic, PERRLA, EOMI Oral: Moist Mucosa Neck: Supple, Trachea Midline Lungs: Clear to auscultation, No rhonchi, No wheeze, No rales Cardiovascular: Regular rate, Regular Rhythm, Normal S1, Normal S2, No Gallop Abdomen: Bowel Sounds Present, Soft, Non Tender, Non-Distended Extremities: No clubbing, No cyanosis, No edema Skin: No rashes Neurological: Cranial nerves II-XII grossly intact, Neuro grossly intact Psych/Mental Status: Normal Affect, Appropriate Vital Signs Temp Pulse Resp BP Pulse Ox 98.1 F 92 18 123/63 H 93 02/23/17 14:00 02/23/17 19:04 02/23/17 19:04 02/23/17 14:00 02/23/17 15:20 Oxygen Flow Rate 92 Oxygen Delivery Method Room Air Weight: 189 lb 6.033 oz Body Mass Index (BMI) 34.6 Intake and Output for Last 24 Hours 02/21/17 02/22/17 02/23/17 23:59 23:59 23:59 Intake Total 2741 / 2741 Output Total 50 / 50 Balance 2691 / 2691 Laboratory Tests Past 24 Hrs 02/23/17 02/23/17 02/23/17 05:26 05:26 05:26 WBC 2.4 L RBC 2.48 L Hgb 7.2 L Hct 23.4 L MCV 94.4 MCH 29.0 MCHC 30.8 L RDW 17.7 H RDW Differential 61.3 H Plt Count 115 L MPV 9.4 Immature Gran % (Auto) 0.400 Neut % (Auto) 72.8 H Lymph % (Auto) 17.4 L [place] % (Auto) 6.0 Eos % (Auto) 3.0 Baso % (Auto) 0.4 Absolute Neuts (auto) 1.7 L Absolute Lymphs (auto) 0.41 L Total Counted Not Reportable Differential Comment SCANNED Diff Path Review Reviewed Sodium 141 Potassium 4.1 Chloride 100 Carbon Dioxide 29.0 Anion Gap 12 BUN 30 H Creatinine 6.27 H Estim Creat Clear Calc 8.11 Est GFR (MDRD) Af Amer 9 L Est GFR (MDRD) Non-Af 7 L BUN/Creatinine Ratio 4.8 L Glucose 79 Calcium 7.7 L Random Vancomycin 19.3 H Assessment/Plan Day #2 antibiotics-ceftriaxone Impressions 1. Pneumonia-likely secondary to influenza A with possible bacterial superinfection. 2. Influenza A 3. Pancytopenia 4. End-stage renal disease on hemodialysis 5. History of endometrial cancer with subsequent colectomy, ileal conduit, nephrectomy secondary to extensive disease. Now with mets to the lung and currently receiving chemotherapy 6. Hypertension Continue Rocephin Discontinue IV fluids-she is eating and drinking better now Hemodialysis on 02/24 Patient has a nonproductive cough and no sputum has been obtained. 1 of 2 blood cultures drawn in the emergency room on 02/21/2017 is positive for a gram- positive keyla. Hopefully the identification of the gram-positive keyla will be available on 02 24. Repeat blood cultures were drawn on 02/22/2017. Hycodan at bedtime for cough suppression so that she can sleep Robitussin-DM during the day as needed nonproductive cough Continue Tamiflu Code Visit Inpatient E&M: 08252 Subs Hosp L2
--- NOTE | 2017-02-23 19:32 | PN_ITS ---
Subjective: Patient is a 56-year-old female with a past medical history of endometrial cancer, colostomy, ileal conduit, nephrectomy, recent diagnosis of lung cancer now on chemotherapy, hypertension, end stage renal disease on hemodialysis and obesity who presented to the emergency department at [facility] on 02/22/2017 with complaints of cough, congestion, shortness of breath, fever and chills. She had been seen in the emergency room on 02/21/2017 and diagnosed with acute influenza A. 1 of 2 blood cultures done at that time was positive for a gram-positive keyla. Vital signs at presentation to the emergency room were temp 98.5, heart rate 91, blood pressure 141/65, respiratory rate 18 and she was 86% on room air. Significant lab included a white blood cell count of 2.6, hemoglobin 8.1 and platelets of 149,000. Differential showed 72% neutrophils. Serum bicarb was increased at 34 and the BUN was 22 with a creatinine of 5.27. LFTs were within normal limits. Chest x-ray showed continued extensive airspace disease throughout the right lung, possibly worse. She was admitted to the hospital with a diagnosis of suspected pneumonia and hypoxemia. Blood cultures were repeated and she was started on Zosyn and IV vancomycin. Consultation was obtained with Dr. Jadiel Maier from infectious disease today. Since she did not appear toxic he recommended continued antiviral therapy with Tamiflu and discontinuation of Zosyn and vancomycin in favor of ceftriaxone. She was also seen by Dr. King today and will have hemodialysis on Sunday. She has been afebrile since admission and vital signs are stable. Currently she is 93% saturated on room air. Lab today shows persistent leukopenia with a white blood cell count of 2.4. Hemoglobin is low at 7.2 today and platelets are down to 115,000. Electrolytes are within normal limits. Cough is non-productive. Denies CP, N/V, diarrhea, abdominal pain. She still has SOB. - Physical Exam General: Alert, Oriented x3, Cooperative, No apparent distress, - - Nontoxic- appearing HEENT: Atraumatic, PERRLA, EOMI Oral: Moist Mucosa Neck: Supple, Trachea Midline Lungs: Clear to auscultation, No rhonchi, No wheeze, No rales Cardiovascular: Regular rate, Regular Rhythm, Normal S1, Normal S2, No Gallop Abdomen: Bowel Sounds Present, Soft, Non Tender, Non-Distended Extremities: No clubbing, No cyanosis, No edema Skin: No rashes Neurological: Cranial nerves II-XII grossly intact, Neuro grossly intact Psych/Mental Status: Normal Affect, Appropriate Vital Signs Temp Pulse Resp BP Pulse Ox 98.1 F 92 18 123/63 H 93 02/23/17 14:00 02/23/17 19:04 02/23/17 19:04 02/23/17 14:00 02/23/17 15:20 Oxygen Flow Rate 92 Oxygen Delivery Method Room Air Weight: 189 lb 6.033 oz Body Mass Index (BMI) 34.6 Intake and Output for Last 24 Hours 02/21/17 02/22/17 02/23/17 23:59 23:59 23:59 Intake Total 2741 / 2741 Output Total 50 / 50 Balance 2691 / 2691 Laboratory Tests Past 24 Hrs 02/23/17 02/23/17 02/23/17 05:26 05:26 05:26 WBC 2.4 L RBC 2.48 L Hgb 7.2 L Hct 23.4 L MCV 94.4 MCH 29.0 MCHC 30.8 L RDW 17.7 H RDW Differential 61.3 H Plt Count 115 L MPV 9.4 Immature Gran % (Auto) 0.400 Neut % (Auto) 72.8 H Lymph % (Auto) 17.4 L [place] % (Auto) 6.0 Eos % (Auto) 3.0 Baso % (Auto) 0.4 Absolute Neuts (auto) 1.7 L Absolute Lymphs (auto) 0.41 L Total Counted Not Reportable Differential Comment SCANNED Diff Path Review Reviewed Sodium 141 Potassium 4.1 Chloride 100 Carbon Dioxide 29.0 Anion Gap 12 BUN 30 H Creatinine 6.27 H Estim Creat Clear Calc 8.11 Est GFR (MDRD) Af Amer 9 L Est GFR (MDRD) Non-Af 7 L BUN/Creatinine Ratio 4.8 L Glucose 79 Calcium 7.7 L Random Vancomycin 19.3 H Assessment/Plan Day #2 antibiotics-ceftriaxone Impressions 1. Pneumonia-likely secondary to influenza A with possible bacterial superinfection. 2. Influenza A 3. Pancytopenia 4. End-stage renal disease on hemodialysis 5. History of endometrial cancer with subsequent colectomy, ileal conduit, nephrectomy secondary to extensive disease. Now with mets to the lung and currently receiving chemotherapy 6. Hypertension * Continue Rocephin * Discontinue IV fluids-she is eating and drinking better now * Hemodialysis on 02/24 * Patient has a nonproductive cough and no sputum has been obtained. 1 of 2 blood cultures drawn in the emergency room on 02/21/2017 is positive for a gram- positive keyla. Hopefully the identification of the gram-positive keyla will be available on 02 24. Repeat blood cultures were drawn on 02/22/2017. * Hycodan at bedtime for cough suppression so that she can sleep Robitussin- DM during the day as needed nonproductive cough * Continue Tamiflu Code Visit Inpatient E&M: 56987 Subs Hosp L2
[2017-02-23] MEDS: Nepro Liquid 120 ML LIQUID PO (22:01)
[2017-02-24] VITALS (11 sets, daily range): BP systolic 118–122; BP diastolic 56–60; PULSE 75–98; RESP 16–19; TEMP 36.3–36.7; O2SAT 92–98
[2017-02-24] MEDS: Ipratropium/Albuterol Sulfate 3 ML AMPUL.NEB INHALATION ×4 (06:40→18:52)
[2017-02-24 07:23] LABS: Absolute Lymphocyte Count 0.36 X10^3/ul (0.83-4.51); Absolute Neutrophil Count 1.1 X10^3/uL (2.0-7.7); Basophil# 0.01 X10^3/uL; Basophil% 0.6 % (0-1); Eosinophils% 5.7 % (0-5); Hematocrit 20.5 % (37-47); Hemoglobin 6.4 g/dl (12.0-15.0); Lymphocyte # 0.36 X10^3/ul (4.0); Lymphocyte % 20.6 % (19-41); Mean Corp Hgb Conc 31.2 g/gl (32-36); Mean Corpuscular Hgb 29.2 pg (27.0-32.0); Mean Corpuscular Volume 93.6 fL (81-99); Mean Platelet Vol. 9.8 fl (6.2-12.0); Monocyte# 0.15 X10^3/uL; Monocyte% 8.6 % (0-10); Neutrophil # 1.12 X10^3/uL (2.7-7.7); Neutrophil % 63.9 % (47-70); Platelet Count 96 K/mm3 (150-450); RBC Distribution Width CV 17.5 % (11.6-14.6); RBC Distribution Width SD 60.1 fl (35.1-43.9); Red Blood Count 2.19 M/mm3 (4.2-5.4); White Blood Count 1.8 K/mm3 (4.4-11.0)
[2017-02-24 07:26] LABS: Anion Gap 12 (5-15); BUN 43 mg/dL (7-18); BUN/Creat Ratio 5.4 RATIO (10-20); Calcium,Total 7.9 mg/dL (8.5-10.1); Chloride 100 mmol/L (98-107); Creatinine, Serum 7.96 mg/dL (0.55-1.02); EST Glomerular Filtration Rate 6 mL/min (>60); Est Glom Filt Rate - Afr Amer 7 mL/min (>60); Estimated Creatinine Clearance 6.39 ml/min; Glucose 85 mg/dL (70-110); Sodium Level 140 mmol/L (136-145)
[2017-02-24 07:29] LABS: Differential Indicated SCAN CRITERIA MET; POSITIVE COUNT NO; POSITIVE DIFFERENTIAL YES; POSITIVE MORPHOLOGY NO
[2017-02-24] MEDS: Calcium Acetate 667 MG Capsule 1334 MG PO (09:13)
[2017-02-24] MEDS: Lisinopril 20 MG Tablet PO (09:13)
[2017-02-24] MEDS: Famotidine 20 MG Tablet PO (09:13)
[2017-02-24] MEDS: amLODIPine 5 MG Tablet 10 MG PO (09:14)
[2017-02-24] MEDS: Folic Acid 1 MG Tablet PO (09:14)
[2017-02-24] MEDS: Oseltamivir Phosphate 30 MG Capsule PO (09:15)
[2017-02-24] MEDS: Heparin Injection 5,000 UNITS/ML Syringe 5000 UNITS SC (09:15)
[2017-02-24] MEDS: guaiFENesin 600 MG Tablet 1200 MG PO (09:16)
[2017-02-24 09:44] LABS: Differential Comment SCANNED
--- NOTE | 2017-02-24 11:12 | PCM.PN.REN ---
Subjective: HD today - Physical Exam Neck: Supple Lungs: Clear to auscultation Cardiovascular: Regular rate, No murmurs Abdomen: Bowel Sounds Present, Soft, Non Tender Extremities: No edema, Capillary Refill Less than 3 Seconds Neurological: Cranial nerves II-XII grossly intact Psych/Mental Status: Normal Affect, Appropriate Vital Signs Temp Pulse Resp BP Pulse Ox 98.0 F 90 18 122/57 H 97 02/24/17 07:52 02/24/17 09:00 02/24/17 07:52 02/24/17 07:52 02/24/17 07:52 Oxygen Flow Rate 3 Oxygen Delivery Method Nasal Cannula Weight: 85.9 kg Body Mass Index (BMI) 34.6 Intake and Output for Last 24 Hours 02/22/17 02/23/17 02/24/17 23:59 23:59 23:59 Intake Total 2741 / 2741 560 / 560 Output Total 50 / 50 50 / 50 Balance 2691 / 2691 510 / 510 Laboratory Tests Past 24 Hrs 02/23/17 02/24/17 02/24/17 05:26 06:30 06:30 WBC 1.8 L RBC 2.19 L Hgb 6.4 L Hct 20.5 L MCV 93.6 MCH 29.2 MCHC 31.2 L RDW 17.5 H RDW Differential 60.1 H Plt Count 96 L MPV 9.8 Immature Gran % (Auto) 0.600 Neut % (Auto) 63.9 Lymph % (Auto) 20.6 [place] % (Auto) 8.6 Eos % (Auto) 5.7 H Baso % (Auto) 0.6 Absolute Neuts (auto) 1.1 L Absolute Lymphs (auto) 0.36 L Total Counted Not Reportable Differential Comment SCANNED Diff Path Review Reviewed Sodium 140 Potassium 4.0 Chloride 100 Carbon Dioxide 28.0 Anion Gap 12 BUN 43 H Creatinine 7.96 H* Estim Creat Clear Calc 6.39 Est GFR (MDRD) Af Amer 7 L Est GFR (MDRD) Non-Af 6 L BUN/Creatinine Ratio 5.4 L Glucose 85 Calcium 7.9 L Assessment/Plan ESRD. HD today as per schedule RLL pneumonia. Flu positive. superimposed bacterial. ID on consult Anemia. Hb has been worsening since she started chemo. Hb at 7.2 now. transfuse if less than 7
--- NOTE | 2017-02-24 11:43 | PCM.PROGNOTE ---
Subjective: 56-year-old female with a past medical history of endometrial cancer with extensive surgery including ANGIE with BSO, colectomy, colostomy, removal of the bladder and an ileal conduit. Now with lung metastases and undergoing chemotherapy. Admitted to the hospital with influenza A and possible bacterial superinfection. Currently on Rocephin and Tamiflu. Has been seen by infectious disease. All events of the past 24 hours of been reviewed. She has been afebrile. Vital signs are stable. She is 97% saturated on 3 L nasal cannula and oxygen is being weaned down. White blood cell count today is 1.8 with 64% neutrophils and 5.7% eosinophils. This may be due to an allergic reaction to ciprofloxacin which was discontinued on 02/23/2017. Electrolytes are within normal limits and the serum bicarb is normal at 28. 1 of 2 blood cultures drawn in the ER on 02/21/2017 is growing Rhizobium radiobacter. The blood cultures drawn on 02/22/2017 have no growth to date. States she is starting to feel better. Still having a little wheezing when she is up and active. Denies nausea, vomiting, abdominal pain, dysuria, vaginal discharge, sores in her mouth. Last chemotherapy was 2 weeks ago. f - Physical Exam General: Alert, Oriented x3, Cooperative, No apparent distress HEENT: Atraumatic, PERRLA, Normocephalic Oral: Moist Mucosa Neck: Supple, No Nuchal Rigidity Lungs: Clear to auscultation - She initially had mild wheezing in the right upper lobe but after a cough this totally cleared., No rhonchi, No rales Cardiovascular: Regular rate, Regular Rhythm, Normal S1, Normal S2, No murmurs, No rub noted, No Gallop Abdomen: Bowel Sounds Present, Soft, Non Tender, Non-Distended Extremities: No clubbing, No cyanosis, No edema Psych/Mental Status: Normal Affect, Appropriate Vital Signs Temp Pulse Resp BP Pulse Ox 98.0 F 75 18 122/57 H 97 02/24/17 07:52 02/24/17 10:45 02/24/17 10:45 02/24/17 07:52 02/24/17 07:52 Oxygen Flow Rate 3 Oxygen Delivery Method Nasal Cannula Weight: 189 lb 6.033 oz Body Mass Index (BMI) 34.6 Intake and Output for Last 24 Hours 02/22/17 02/23/17 02/24/17 23:59 23:59 23:59 Intake Total 2741 / 2741 560 / 560 Output Total 50 / 50 50 / 50 Balance 2691 / 2691 510 / 510 Laboratory Tests Past 24 Hrs 02/23/17 02/24/17 02/24/17 05:26 06:30 06:30 WBC 1.8 L RBC 2.19 L Hgb 6.4 L Hct 20.5 L MCV 93.6 MCH 29.2 MCHC 31.2 L RDW 17.5 H RDW Differential 60.1 H Plt Count 96 L MPV 9.8 Immature Gran % (Auto) 0.600 Neut % (Auto) 63.9 Lymph % (Auto) 20.6 [place] % (Auto) 8.6 Eos % (Auto) 5.7 H Baso % (Auto) 0.6 Absolute Neuts (auto) 1.1 L Absolute Lymphs (auto) 0.36 L Total Counted Not Reportable Differential Comment SCANNED Diff Path Review Reviewed Sodium 140 Potassium 4.0 Chloride 100 Carbon Dioxide 28.0 Anion Gap 12 BUN 43 H Creatinine 7.96 H* Estim Creat Clear Calc 6.39 Est GFR (MDRD) Af Amer 7 L Est GFR (MDRD) Non-Af 6 L BUN/Creatinine Ratio 5.4 L Glucose 85 Calcium 7.9 L Assessment/Plan Day #3 antibiotics-ceftriaxone Impressions 1. Pneumonia-likely secondary to influenza A with possible bacterial superinfection. Has not been able to produce a sputum. 2. Influenza A 3. Pancytopenia-last chemotherapy 2 weeks ago. Absolute neutrophil count is greater than 1002 no need for Granix 4. End-stage renal disease on hemodialysis 5. History of endometrial cancer with subsequent colectomy, ileal conduit, nephrectomy secondary to extensive disease. Now with mets to the lung and currently receiving chemotherapy 6. Hypertension 7. Bacteremia in 1 of 2 blood cultures drawn in the ER are 02/21/2017 and the culture is growing Rhizobium Radiobacter Continue Rocephin Discontinue IV fluids-she is eating and drinking better now Hemodialysis on 02/24 Patient has a nonproductive cough and no sputum has been obtained. 1 of 2 blood cultures drawn in the emergency room on 02/21/2017 is positive for a Rhizobium Radiobacte. Repeat blood cultures were drawn on 02/22/2017. Hycodan at bedtime for cough suppression so that she can sleep Robitussin-DM during the day as needed nonproductive cough Continue Tamiflu I texted Dr. Maier about the results of the blood culture and he said that is an odd bacteria and he would have to look it up and get back to me. For now will continue the current treatment regimen. If the BC's are still negative on 02/25 she may be able to be discharged. Repeat the CXR in the AM and get a ambulatory pulse ox. Code Visit Inpatient E&M: 28703 Subs Hosp L2
--- NOTE | 2017-02-24 11:53 | PN_ITS ---
Subjective: 56-year-old female with a past medical history of endometrial cancer with extensive surgery including ANGIE with BSO, colectomy, colostomy, removal of the bladder and an ileal conduit. Now with lung metastases and undergoing chemotherapy. Admitted to the hospital with influenza A and possible bacterial superinfection. Currently on Rocephin and Tamiflu. Has been seen by infectious disease. All events of the past 24 hours of been reviewed. She has been afebrile. Vital signs are stable. She is 97% saturated on 3 L nasal cannula and oxygen is being weaned down. White blood cell count today is 1.8 with 64% neutrophils and 5.7% eosinophils. This may be due to an allergic reaction to ciprofloxacin which was discontinued on 02/23/2017. Electrolytes are within normal limits and the serum bicarb is normal at 28. 1 of 2 blood cultures drawn in the ER on 02/21/2017 is growing Rhizobium radiobacter. The blood cultures drawn on 02/22/2017 have no growth to date. States she is starting to feel better. Still having a little wheezing when she is up and active. Denies nausea, vomiting, abdominal pain, dysuria, vaginal discharge, sores in her mouth. Last chemotherapy was 2 weeks ago. f - Physical Exam General: Alert, Oriented x3, Cooperative, No apparent distress HEENT: Atraumatic, PERRLA, Normocephalic Oral: Moist Mucosa Neck: Supple, No Nuchal Rigidity Lungs: Clear to auscultation - She initially had mild wheezing in the right upper lobe but after a cough this totally cleared., No rhonchi, No rales Cardiovascular: Regular rate, Regular Rhythm, Normal S1, Normal S2, No murmurs, No rub noted, No Gallop Abdomen: Bowel Sounds Present, Soft, Non Tender, Non-Distended Extremities: No clubbing, No cyanosis, No edema Psych/Mental Status: Normal Affect, Appropriate Vital Signs Temp Pulse Resp BP Pulse Ox 98.0 F 75 18 122/57 H 97 02/24/17 07:52 02/24/17 10:45 02/24/17 10:45 02/24/17 07:52 02/24/17 07:52 Oxygen Flow Rate 3 Oxygen Delivery Method Nasal Cannula Weight: 189 lb 6.033 oz Body Mass Index (BMI) 34.6 Intake and Output for Last 24 Hours 02/22/17 02/23/17 02/24/17 23:59 23:59 23:59 Intake Total 2741 / 2741 560 / 560 Output Total 50 / 50 50 / 50 Balance 2691 / 2691 510 / 510 Laboratory Tests Past 24 Hrs 02/23/17 02/24/17 02/24/17 05:26 06:30 06:30 WBC 1.8 L RBC 2.19 L Hgb 6.4 L Hct 20.5 L MCV 93.6 MCH 29.2 MCHC 31.2 L RDW 17.5 H RDW Differential 60.1 H Plt Count 96 L MPV 9.8 Immature Gran % (Auto) 0.600 Neut % (Auto) 63.9 Lymph % (Auto) 20.6 Brooke % (Auto) 8.6 Eos % (Auto) 5.7 H Baso % (Auto) 0.6 Absolute Neuts (auto) 1.1 L Absolute Lymphs (auto) 0.36 L Total Counted Not Reportable Differential Comment SCANNED Diff Path Review Reviewed Sodium 140 Potassium 4.0 Chloride 100 Carbon Dioxide 28.0 Anion Gap 12 BUN 43 H Creatinine 7.96 H* Estim Creat Clear Calc 6.39 Est GFR (MDRD) Af Amer 7 L Est GFR (MDRD) Non-Af 6 L BUN/Creatinine Ratio 5.4 L Glucose 85 Calcium 7.9 L Assessment/Plan Day #3 antibiotics-ceftriaxone Impressions 1. Pneumonia-likely secondary to influenza A with possible bacterial superinfection. Has not been able to produce a sputum. 2. Influenza A 3. Pancytopenia-last chemotherapy 2 weeks ago. Absolute neutrophil count is greater than 1002 no need for Granix 4. End-stage renal disease on hemodialysis 5. History of endometrial cancer with subsequent colectomy, ileal conduit, nephrectomy secondary to extensive disease. Now with mets to the lung and currently receiving chemotherapy 6. Hypertension 7. Bacteremia in 1 of 2 blood cultures drawn in the ER are 02/21/2017 and the culture is growing Rhizobium Radiobacter * Continue Rocephin * Discontinue IV fluids-she is eating and drinking better now * Hemodialysis on 02/24 * Patient has a nonproductive cough and no sputum has been obtained. 1 of 2 blood cultures drawn in the emergency room on 02/21/2017 is positive for a Rhizobium Radiobacte. Repeat blood cultures were drawn on 02/22/2017. * Hycodan at bedtime for cough suppression so that she can sleep Robitussin- DM during the day as needed nonproductive cough * Continue Tamiflu I texted Dr. Maier about the results of the blood culture and he said that is an odd bacteria and he would have to look it up and get back to me. For now will continue the current treatment regimen. If the BC's are still negative on 02/25 she may be able to be discharged. Repeat the CXR in the AM and get a ambulatory pulse ox. Code Visit Inpatient E&M: 93515 Subs Hosp L2
[2017-02-25] VITALS (23 sets, daily range): BP systolic 125–145; BP diastolic 56–93; PULSE 74–118; RESP 16–19; TEMP 36.4–36.7; O2SAT 81–100
[2017-02-25] MEDS: guaiFENesin 600 MG Tablet 1200 MG PO ×3 (00:20→21:25)
[2017-02-25] MEDS: Famotidine 20 MG Tablet PO ×3 (00:20→21:25)
[2017-02-25] MEDS: Lisinopril 20 MG Tablet PO ×3 (00:20→21:25)
[2017-02-25 01:14] LABS: Hematocrit 21.2 % (37-47); Hemoglobin 6.7 g/dl (12.0-15.0)
[2017-02-25] MEDS: Albuterol 2.5 MG/3 ML VIAL.NEB. INHALATION (01:30)
--- NOTE | 2017-02-25 05:55 | RAD_ITS ---
STUDY: X-RAY CHEST REASON FOR EXAM: Female, 56 years old. Dyspnea TECHNIQUE: Frontal and lateral views of the chest. COMPARISON: February 22, 2017 FINDINGS: Extensive ill-defined airspace opacities are again noted in the right lung. There is a small right pleural effusion. Normal size heart. Normal mediastinum and nacho. Normal visualized pulmonary arteries. Normal visualized aortic arch and descending thoracic aorta. Normal visualized thoracic spine. Normal visualized ribs, clavicles, and shoulders. There is no demonstrated abnormality of the visualized soft tissue structures of the upper abdomen. RAD/Chest PA and Lateral IMPRESSION: Stable Extensive ill-defined airspace opacities are again noted in the right lung. There is a small right pleural effusion. Electronically Signed: Sulaiman Licona MD at 7:11 EST Tel , Service support ,
[2017-02-25] MEDS: Ipratropium/Albuterol Sulfate 3 ML AMPUL.NEB INHALATION ×5 (06:48→23:45)
[2017-02-25] MEDS: 0.9% NaCl Peripheral Flush Adult/Peds IV ×5 (09:15→21:49)
[2017-02-25] MEDS: Oseltamivir Phosphate 30 MG Capsule PO (09:47)
[2017-02-25] MEDS: Calcium Acetate 667 MG Capsule 1334 MG PO (09:48)
[2017-02-25] MEDS: Heparin Injection 5,000 UNITS/ML Syringe 5000 UNITS SC (09:48)
[2017-02-25] MEDS: Docusate Sodium 100 MG Capsule PO (09:48)
[2017-02-25] MEDS: amLODIPine 5 MG Tablet 10 MG PO (09:48)
[2017-02-25] MEDS: Folic Acid 1 MG Tablet PO (09:48)
[2017-02-25] MEDS: Nepro Liquid 120 ML LIQUID PO ×2 (09:53→13:55)
--- NOTE | 2017-02-25 10:59 | PCM.PN.HOSP ---
Subjective: Patient seen and examined. She complains of a nonproductive cough which is getting better. She denies any fever or chills, any shortness of breath, any nausea vomiting, any diarrhea constipation. Review of systems otherwise negative. Has been transfused a unit of blood during my review. Hemoglobin dropped to 6.4 yesterday. Objective: 56-year-old female with a past medical history of endometrial cancer status post extensive surgery including total abdominal hysterectomy with bilateral salpingo-nephrectomy, colectomy, with colostomy and removal of blood and an IV ileal conduit, now having lung metastasis and undergoing therapy. She was admitted with shortness of breath and has been managed for influenza a infection and possible bacterial pneumonia. She is on IV Rocephin and Tamiflu infectious disease is on board. Blood cultures grew Rhizobium radiobacter. She has remained stable. Blood cultures have still remained negative. Vitals/I&O's: Vital Signs Temp Pulse Resp BP Pulse Ox 97.6 F L 80 16 133/67 H 100 02/25/17 09:02 02/25/17 09:02 02/25/17 09:02 02/25/17 09:02 02/25/17 09:02 Oxygen Flow Rate 2 Oxygen Delivery Method Nasal Cannula Weight: 193 lb 8 oz Body Mass Index (BMI) 34.6 Intake and Output for Last 24 Hours 02/23/17 02/24/17 02/25/17 23:59 23:59 23:59 Intake Total 2741 / 2741 1260 / 1260 800 / 800 Output Total 50 / 50 150 / 150 1500 / 1500 Balance 2691 / 2691 1110 / 1110 -700 / -700 General: Alert, Oriented x3, Cooperative HEENT: Atraumatic, PERRLA, EOMI, Normocephalic Oral: Moist Mucosa Neck: Supple, No JVD, Negative Carotid Bruits Lungs: Clear to auscultation Cardiovascular: Regular rate, Normal S1, Normal S2, No murmurs Abdomen: Bowel Sounds Present, Soft, Non Tender, Non-Distended, No Hepato-splenomegaly, - - Has a colostomy bag and an ileostomy bag in place. Extremities: No edema, Capillary Refill Less than 3 Seconds Skin: No rashes, No breakdown Musculoskeletal: No Tenderness to Palpation of Joints or Extremities Lymphatic: No Cervical, Supraclavicular, or Inguinal Adenopathy Neurological: Cranial nerves II-XII grossly intact, Motor Exam 5/5 strength throughout Psych/Mental Status: Normal Affect, Appropriate, Alert and oriented to time, place, person, mood and affect Laboratory Results 02/24/17 14:05: Blood Type O POSITIVE, Antibody Screen POSITIVE H, Antibody Identification ANTI-LITTLE e, Crossmatch See Detail 02/24/17 14:05: Crossmatch See Detail 02/25/17 01:00: Hgb 6.7 L, Hct 21.2 L Current Medications Acetaminophen (Tylenol) 650 mg PO Q4H PRN PRN PRN Reason: FEVER Last Admin: 02/23/17 00:08 Dose: 650 mg Acetaminophen (Tylenol) 650 mg PO Q6H PRN PRN PRN Reason: Mild Pain (scale 0-3)/T>100.7 Albuterol Sulfate (Ventolin Aerosols) 2.5 mg INHALATION Q2H PRN PRN PRN Reason: SHORTNESS OF BREATH Last Admin: 02/25/17 01:30 Dose: 2.5 mg Albuterol/Ipratropium (Duoneb) 3 ml INHALATION Q4H.RT [facility] Last Admin: 02/25/17 10:39 Dose: 3 ml Amlodipine Besylate (Norvasc) 10 mg PO DAILY [facility] Last Admin: 02/25/17 09:48 Dose: 10 mg Calcium Acetate (Phoslo Gel Cap) 1,334 mg PO DAILY@0800 [facility] Last Admin: 02/25/17 09:48 Dose: 1,334 mg Docusate Sodium (Colace) 100 mg PO BID [facility] Last Admin: 02/25/17 09:48 Dose: 100 mg Famotidine (Pepcid) 20 mg PO BID [facility] Last Admin: 02/25/17 09:47 Dose: 20 mg Folic Acid (Folic Acid) 1 mg PO DAILY@0800 [facility] Last Admin: 02/25/17 09:48 Dose: 1 mg Guaifenesin (Mucinex) 1,200 mg PO BID [facility] Last Admin: 02/25/17 09:48 Dose: 1,200 mg Guaifenesin (Robitussin Dm) 5 ml PO Q6H PRN PRN PRN Reason: COUGH Heparin Sodium (Porcine) () 5,000 units SC BID [facility] Last Admin: 02/25/17 09:48 Dose: 5,000 units Hydrocodone Bit/Homatropine Methylb (Hycodan Syrup) 10 ml PO QHS [facility] Last Admin: 02/25/17 00:20 Dose: 10 ml Ceftriaxone Sodium 2 gm/ N/A 20 mls @ 240 mls/hr IV Q24 [facility] Last Admin: 02/25/17 09:52 Dose: 240 mls/hr Lisinopril (Zestril) 20 mg PO BID [facility] Last Admin: 02/25/17 09:48 Dose: 20 mg Magnesium Hydroxide (Milk Of Magnesia) 30 ml PO DAILY PRN PRN PRN Reason: Constipation Morphine Sulfate (Morphine) 2 - 4 mg IV Q3H PRN PRN PRN Reason: Severe Pain (pain scale 6-10) Morphine Sulfate (Morphine) 1 - 2 mg IV Q4H PRN PRN PRN Reason: Moderate Pain (pain scale 4-5) Nutritional Formula (Nepro Carb Steady) 120 ml PO 4X/DAY [facility] Last Admin: 02/25/17 09:53 Dose: 120 ml Ondansetron HCl (Zofran) 4 mg IV Q8H PRN PRN PRN Reason: Nausea Last Admin: 02/23/17 09:59 Dose: 4 mg Oseltamivir Phosphate (Tamiflu) 30 mg PO DAILY [facility] Stop: 02/26/17 10:01 Last Admin: 02/25/17 09:47 Dose: 30 mg Oxycodone HCl (Oxyir) 5 mg PO Q4H PRN PRN PRN Reason: Moderate Pain (pain scale 4-5) Sodium Chloride () 5 - 30 ml IV UD PRN PRN Reason: SALINE FLUSH Last Admin: 02/25/17 09:56 Dose: 5 ml Assessment/Plan 1. Pneumonia likely due to post viral infection (Influenza A) Still complains of a cough which is nonproductive. Lungs have remained clear. Blood culture Rhizobium radiobacter (/2) samples. WBC has remained low. On IV ceftriaxone. Today is day 4. ID consulted. Per discussion with Dr Coon today who spoke to ID doctor, the organism may likely be a contaminant On Tamiflu. To continue Tamiflu for 5 days in total. Will get ambulatory pulse ox today and assess On hydrocodone at bedtime for cough suppression to unable to get some sleep and and Robitussin during the day to help with cough. 2. Pancytopenia due to chemotherapy for metastatic endometrial cancer WBC has remained around 1-2. Platelets was 149 on admission and dropped to 96 yesterday. Will check today. hb dropped to 6.4 yesterday she has been transfused 2 units of blood. will follow up Receiving regular chemotherapy. 3. Hypertension: Fairly controlled. Continue current medications. 4. End-stage renal disease on hemodialysis: Stable. Her hemodialysis on 02/25/2016. Nephrology on board. DVT prophylaxis: Heparin. Will hold in light of significant drop in hemoglobin. Will put on SCDs. Will reassess based on hemoglobin level today. Code Visit Inpatient E&M: 65245 Subs Hosp L3
--- NOTE | 2017-02-25 11:09 | PN_ITS ---
Subjective: Patient seen and examined. She complains of a nonproductive cough which is getting better. She denies any fever or chills, any shortness of breath, any nausea vomiting, any diarrhea constipation. Review of systems otherwise negative. Has been transfused a unit of blood during my review. Hemoglobin dropped to 6.4 yesterday. Objective: 56-year-old female with a past medical history of endometrial cancer status post extensive surgery including total abdominal hysterectomy with bilateral salpingo-nephrectomy, colectomy, with colostomy and removal of blood and an IV ileal conduit, now having lung metastasis and undergoing therapy. She was admitted with shortness of breath and has been managed for influenza a infection and possible bacterial pneumonia. She is on IV Rocephin and Tamiflu infectious disease is on board. Blood cultures grew Rhizobium radiobacter. She has remained stable. Blood cultures have still remained negative. Vitals/I&O's: Vital Signs Temp Pulse Resp BP Pulse Ox 97.6 F L 80 16 133/67 H 100 02/25/17 09:02 02/25/17 09:02 02/25/17 09:02 02/25/17 09:02 02/25/17 09:02 Oxygen Flow Rate 2 Oxygen Delivery Method Nasal Cannula Weight: 193 lb 8 oz Body Mass Index (BMI) 34.6 Intake and Output for Last 24 Hours 02/23/17 02/24/17 02/25/17 23:59 23:59 23:59 Intake Total 2741 / 2741 1260 / 1260 800 / 800 Output Total 50 / 50 150 / 150 1500 / 1500 Balance 2691 / 2691 1110 / 1110 -700 / -700 General: Alert, Oriented x3, Cooperative HEENT: Atraumatic, PERRLA, EOMI, Normocephalic Oral: Moist Mucosa Neck: Supple, No JVD, Negative Carotid Bruits Lungs: Clear to auscultation Cardiovascular: Regular rate, Normal S1, Normal S2, No murmurs Abdomen: Bowel Sounds Present, Soft, Non Tender, Non-Distended, No Hepato- splenomegaly, - - Has a colostomy bag and an ileostomy bag in place. Extremities: No edema, Capillary Refill Less than 3 Seconds Skin: No rashes, No breakdown Musculoskeletal: No Tenderness to Palpation of Joints or Extremities Lymphatic: No Cervical, Supraclavicular, or Inguinal Adenopathy Neurological: Cranial nerves II-XII grossly intact, Motor Exam 5/5 strength throughout Psych/Mental Status: Normal Affect, Appropriate, Alert and oriented to time, place, person, mood and affect Laboratory Results 02/24/17 14:05: Blood Type O POSITIVE, Antibody Screen POSITIVE H, Antibody Identification ANTI-LITTLE e, Crossmatch See Detail 02/24/17 14:05: Crossmatch See Detail 02/25/17 01:00: Hgb 6.7 L, Hct 21.2 L Current Medications Acetaminophen (Tylenol) 650 mg PO Q4H PRN PRN PRN Reason: FEVER Last Admin: 02/23/17 00:08 Dose: 650 mg Acetaminophen (Tylenol) 650 mg PO Q6H PRN PRN PRN Reason: Mild Pain (scale 0-3)/T>100.7 Albuterol Sulfate (Ventolin Aerosols) 2.5 mg INHALATION Q2H PRN PRN PRN Reason: SHORTNESS OF BREATH Last Admin: 02/25/17 01:30 Dose: 2.5 mg Albuterol/Ipratropium (Duoneb) 3 ml INHALATION Q4H.RT [facility] Last Admin: 02/25/17 10:39 Dose: 3 ml Amlodipine Besylate (Norvasc) 10 mg PO DAILY [facility] Last Admin: 02/25/17 09:48 Dose: 10 mg Calcium Acetate (Phoslo Gel Cap) 1,334 mg PO DAILY@0800 [facility] Last Admin: 02/25/17 09:48 Dose: 1,334 mg Docusate Sodium (Colace) 100 mg PO BID [facility] Last Admin: 02/25/17 09:48 Dose: 100 mg Famotidine (Pepcid) 20 mg PO BID [facility] Last Admin: 02/25/17 09:47 Dose: 20 mg Folic Acid (Folic Acid) 1 mg PO DAILY@0800 [facility] Last Admin: 02/25/17 09:48 Dose: 1 mg Guaifenesin (Mucinex) 1,200 mg PO BID [facility] Last Admin: 02/25/17 09:48 Dose: 1,200 mg Guaifenesin (Robitussin Dm) 5 ml PO Q6H PRN PRN PRN Reason: COUGH Heparin Sodium (Porcine) () 5,000 units SC BID [facility] Last Admin: 02/25/17 09:48 Dose: 5,000 units Hydrocodone Bit/Homatropine Methylb (Hycodan Syrup) 10 ml PO QHS [facility] Last Admin: 02/25/17 00:20 Dose: 10 ml Ceftriaxone Sodium 2 gm/ N/A 20 mls @ 240 mls/hr IV Q24 [facility] Last Admin: 02/25/17 09:52 Dose: 240 mls/hr Lisinopril (Zestril) 20 mg PO BID [facility] Last Admin: 02/25/17 09:48 Dose: 20 mg Magnesium Hydroxide (Milk Of Magnesia) 30 ml PO DAILY PRN PRN PRN Reason: Constipation Morphine Sulfate (Morphine) 2 - 4 mg IV Q3H PRN PRN PRN Reason: Severe Pain (pain scale 6-10) Morphine Sulfate (Morphine) 1 - 2 mg IV Q4H PRN PRN PRN Reason: Moderate Pain (pain scale 4-5) Nutritional Formula (Nepro Carb Steady) 120 ml PO 4X/DAY [facility] Last Admin: 02/25/17 09:53 Dose: 120 ml Ondansetron HCl (Zofran) 4 mg IV Q8H PRN PRN PRN Reason: Nausea Last Admin: 02/23/17 09:59 Dose: 4 mg Oseltamivir Phosphate (Tamiflu) 30 mg PO DAILY [facility] Stop: 02/26/17 10:01 Last Admin: 02/25/17 09:47 Dose: 30 mg Oxycodone HCl (Oxyir) 5 mg PO Q4H PRN PRN PRN Reason: Moderate Pain (pain scale 4-5) Sodium Chloride () 5 - 30 ml IV UD PRN PRN Reason: SALINE FLUSH Last Admin: 02/25/17 09:56 Dose: 5 ml Assessment/Plan 1. Pneumonia likely due to post viral infection (Influenza A) * Still complains of a cough which is nonproductive. Lungs have remained clear. * Blood culture Rhizobium radiobacter (02/20) samples. WBC has remained low. * On IV ceftriaxone. Today is day 4. ID consulted. Per discussion with Dr Coon today who spoke to ID doctor, the organism may likely be a contaminant * On Tamiflu. To continue Tamiflu for 5 days in total. * Will get ambulatory pulse ox today and assess * On hydrocodone at bedtime for cough suppression to unable to get some sleep and and Robitussin during the day to help with cough. * 2. Pancytopenia due to chemotherapy for metastatic endometrial cancer * WBC has remained around 1-2. Platelets was 149 on admission and dropped to 96 yesterday. Will check today. hb dropped to 6.4 yesterday she has been transfused 2 units of blood. will follow up * Receiving regular chemotherapy. * 3. Hypertension: Fairly controlled. Continue current medications. 4. End-stage renal disease on hemodialysis: Stable. Her hemodialysis on 2016. Nephrology on board. DVT prophylaxis: Heparin. Will hold in light of significant drop in hemoglobin. Will put on SCDs. Will reassess based on hemoglobin level today. Code Visit Inpatient E&M: 51734 Subs Hosp L3
--- NOTE | 2017-02-25 16:19 | NURSING ---
Pt. reports poor appetite.
[2017-02-25 18:35] LABS: Absolute Lymphocyte Count 0.46 X10^3/ul (0.83-4.51); Absolute Neutrophil Count 2.2 X10^3/uL (2.0-7.7); Basophil# 0.04 X10^3/uL; Basophil% 1.3 % (0-1); Differential Indicated SCAN CRITERIA MET; Eosinophil# 0.19 X10^3/uL; Hematocrit 28.4 % (37-47); Hemoglobin 9.3 g/dl (12.0-15.0); Lymphocyte # 0.46 X10^3/ul (4.0); Lymphocyte % 14.4 % (19-41); Mean Corp Hgb Conc 32.7 g/gl (32-36); Mean Corpuscular Hgb 29.8 pg (27.0-32.0); Mean Platelet Vol. 9.8 fl (6.2-12.0); Monocyte# 0.24 X10^3/uL; Monocyte% 7.5 % (0-10); Neutrophil # 2.21 X10^3/uL (2.7-7.7); Neutrophil % 69.2 % (47-70); POSITIVE COUNT NO; POSITIVE DIFFERENTIAL YES; POSITIVE MORPHOLOGY NO; Platelet Count 136 K/mm3 (150-450); RBC Distribution Width CV 16.4 % (11.6-14.6); RBC Distribution Width SD 52.8 fl (35.1-43.9); Red Blood Count 3.12 M/mm3 (4.2-5.4); White Blood Count 3.2 K/mm3 (4.4-11.0)
[2017-02-25 19:01] LABS: Anion Gap 10 (5-15); BUN 24 mg/dL (7-18); BUN/Creat Ratio 4.3 RATIO (10-20); Calcium,Total 8.2 mg/dL (8.5-10.1); Chloride 99 mmol/L (98-107); Creatinine, Serum 5.58 mg/dL (0.55-1.02); EST Glomerular Filtration Rate 8 mL/min (>60); Est Glom Filt Rate - Afr Amer 10 mL/min (>60); Estimated Creatinine Clearance 9.12 ml/min; Glucose 111 mg/dL (70-110); Potassium 3.7 mmol/L (3.5-5.1); Sodium Level 139 mmol/L (136-145)
--- NOTE | 2017-02-25 20:22 | NURSING ---
[employer] collected urine sample. Sent to lab. Unable to chart source as Illeal Conduit, called to Lab and reported to Fidel.
[2017-02-25] MEDS: Ondansetron 4 MG/2 ML Vial IV (21:49)
[2017-02-25 22:01] LABS: Bedside Glucose 117 mg/dL (70-110)
[2017-02-26] VITALS (15 sets, daily range): BP systolic 133–142; BP diastolic 66–71; PULSE 76–112; RESP 16–20; TEMP 36.6–36.9; O2SAT 94–100
--- NOTE | 2017-02-26 02:25 | NURSING ---
Patient 68% on RA, HR 115. With 2L O2 applied, recovered within 5 minutes, O2= 97% and HR down to 84. CPSShirley, notified.
[2017-02-26] MEDS: Ipratropium/Albuterol Sulfate 3 ML AMPUL.NEB INHALATION ×6 (03:34→23:40)
[2017-02-26 06:44] LABS: BUN 28 mg/dL (7-18); Creatinine, Serum 6.46 mg/dL (0.55-1.02); Estimated Creatinine Clearance 7.87 ml/min; Glucose 87 mg/dL (70-110)
[2017-02-26 06:45] LABS: Anion Gap 8 (5-15); BUN/Creat Ratio 4.3 RATIO (10-20); Calcium,Total 8.3 mg/dL (8.5-10.1); Chloride 100 mmol/L (98-107); EST Glomerular Filtration Rate 7 mL/min (>60); Est Glom Filt Rate - Afr Amer 9 mL/min (>60); Potassium 3.8 mmol/L (3.5-5.1); Sodium Level 139 mmol/L (136-145)
[2017-02-26 07:11] LABS: Absolute Lymphocyte Count 0.39 X10^3/ul (0.83-4.51); Absolute Neutrophil Count 2.3 X10^3/uL (2.0-7.7); Basophil# 0.02 X10^3/uL; Basophil% 0.6 % (0-1); Eosinophil# 0.18 X10^3/uL; Eosinophils% 5.8 % (0-5); Hematocrit 26.9 % (37-47); Hemoglobin 8.7 g/dl (12.0-15.0); Lymphocyte # 0.39 X10^3/ul (4.0); Lymphocyte % 12.6 % (19-41); Mean Corp Hgb Conc 32.3 g/gl (32-36); Mean Corpuscular Hgb 29.4 pg (27.0-32.0); Mean Corpuscular Volume 90.9 fL (81-99); Mean Platelet Vol. 9.6 fl (6.2-12.0); Monocyte# 0.22 X10^3/uL; Monocyte% 7.1 % (0-10); Neutrophil # 2.26 X10^3/uL (2.7-7.7); Neutrophil % 73.3 % (47-70); Platelet Count 138 K/mm3 (150-450); RBC Distribution Width CV 16.8 % (11.6-14.6); RBC Distribution Width SD 55.6 fl (35.1-43.9); Red Blood Count 2.96 M/mm3 (4.2-5.4); White Blood Count 3.1 K/mm3 (4.4-11.0)
[2017-02-26 07:13] LABS: POSITIVE COUNT NO; POSITIVE MORPHOLOGY NO
[2017-02-26 07:14] LABS: Differential Indicated SCAN CRITERIA MET; POSITIVE DIFFERENTIAL YES
[2017-02-26] MEDS: Calcium Acetate 667 MG Capsule 1334 MG PO (08:12)
[2017-02-26] MEDS: Folic Acid 1 MG Tablet PO (08:12)
[2017-02-26] MEDS: amLODIPine 5 MG Tablet 10 MG PO (09:47)
[2017-02-26] MEDS: guaiFENesin 600 MG Tablet 1200 MG PO ×2 (09:47→21:37)
[2017-02-26] MEDS: Lisinopril 20 MG Tablet PO ×2 (09:47→21:38)
[2017-02-26] MEDS: Famotidine 20 MG Tablet PO ×2 (09:47→21:37)
[2017-02-26] MEDS: Oseltamivir Phosphate 30 MG Capsule PO (09:47)
--- NOTE | 2017-02-26 11:53 | PCM.PN.REN ---
Subjective: Still has some cough. No SOB. No CP - Physical Exam General: Alert, Oriented x3 HEENT: Atraumatic Oral: Moist Mucosa Neck: Supple, No JVD Lungs: Clear to auscultation, Normal air movement, No rhonchi Cardiovascular: Regular rate, Regular Rhythm, Normal S1, Normal S2 Abdomen: Bowel Sounds Present, Soft, Non Tender Extremities: No clubbing, No cyanosis, No edema Skin: No rashes Musculoskeletal: No Tenderness to Palpation of Joints or Extremities Lymphatic: No Cervical, Supraclavicular, or Inguinal Adenopathy Neurological: Cranial nerves II-XII grossly intact, Neuro grossly intact Psych/Mental Status: Normal Affect Vital Signs Temp Pulse Resp BP Pulse Ox 98.4 F 85 18 142/70 H 94 02/26/17 08:08 02/26/17 10:55 02/26/17 10:46 02/26/17 08:08 02/26/17 10:46 Oxygen Flow Rate 2 Oxygen Delivery Method Room Air Weight: 90.4 kg Body Mass Index (BMI) 34.6 Intake and Output for Last 24 Hours 02/24/17 02/25/17 02/26/17 23:59 23:59 23:59 Intake Total 1260 / 1260 2565 / 2565 150 / 150 Output Total 150 / 150 1650 / 1650 Balance 1110 / 1110 915 / 915 150 / 150 Microbiology Past 72 Hours 02/25/17 20:00 Streptococcus pneumoniae Antigen (M - Final Urine Catheter - Catheter Streptococcus pneumonia Ag 02/25/17 20:00 Legionella Antigen - Final Urine Catheter - Catheter Laboratory Tests Past 24 Hrs 02/24/17 02/25/17 02/25/17 14:05 18:10 18:10 WBC 3.2 L RBC 3.12 L Hgb 9.3 L Hct 28.4 L MCV 91.0 MCH 29.8 MCHC 32.7 RDW 16.4 H RDW Differential 52.8 H Plt Count 136 L MPV 9.8 Immature Gran % (Auto) 1.600 H Neut % (Auto) 69.2 Lymph % (Auto) 14.4 L [place] % (Auto) 7.5 Eos % (Auto) 6.0 H Baso % (Auto) 1.3 H Absolute Neuts (auto) 2.2 Absolute Lymphs (auto) 0.46 L Total Counted Not Reportable Differential Comment Diff Path Review May foll Sodium Potassium Chloride Carbon Dioxide Anion Gap BUN Creatinine Estim Creat Clear Calc Est GFR (MDRD) Af Amer Est GFR (MDRD) Non-Af BUN/Creatinine Ratio Glucose Calcium Hep Bs Antigen Pending Hep Bs Antibody Pending Crossmatch See Detail 02/25/17 02/26/17 02/26/17 18:10 05:46 05:46 WBC 3.1 L RBC 2.96 L Hgb 8.7 L Hct 26.9 L MCV 90.9 MCH 29.4 MCHC 32.3 RDW 16.8 H RDW Differential 55.6 H Plt Count 138 L MPV 9.6 Immature Gran % (Auto) 0.600 Neut % (Auto) 73.3 H Lymph % (Auto) 12.6 L [place] % (Auto) 7.1 Eos % (Auto) 5.8 H Baso % (Auto) 0.6 Absolute Neuts (auto) 2.3 Absolute Lymphs (auto) 0.39 L Total Counted Not Reportable Differential Comment Diff Path Review Sodium 139 139 Potassium 3.7 3.8 Chloride 99 100 Carbon Dioxide 30.0 31.0 Anion Gap 10 8 BUN 24 H 28 H Creatinine 5.58 H 6.46 H Estim Creat Clear Calc 9.12 7.87 Est GFR (MDRD) Af Amer 10 L 9 L Est GFR (MDRD) Non-Af 8 L 7 L BUN/Creatinine Ratio 4.3 L 4.3 L Glucose 111 H 87 Calcium 8.2 L 8.3 L Hep Bs Antigen Hep Bs Antibody Crossmatch POC Glucose 02/25/17 16:19 POC Glucose 117 H Assessment/Plan 1- ESRD On TTS. Last HD 02/24 . Next HD 02/27. URR goal 70%. HD orders as per the chronic outpatient orders Dose medications for ESRD patient 2-Anemia: management is as per outpatient order for GREG and IV iron 3- HTN: BP is well controlled. On lisinopril 20 BID 4- BMD: On Ca acetate. 5- RLL pneumonia. On Ceftriaxone IV. Please dose it for ESRD patient Thank you for the consult. Will continue to follow Elena Morales MD [phone]
--- NOTE | 2017-02-26 13:20 | PCM.PROGNOTE ---
<Lisa Plummer - Last Filed: 02/26/17 13:38> Subjective: Patient seen and examined. Resting in chair eating breakfast. Denies current complaints. States cough is improved. Denies fever, chills. Denies GI/ complaints. Denies other complaints. - Physical Exam General: Alert, Oriented x3, Cooperative HEENT: Atraumatic, PERRLA, EOMI, Normocephalic Neck: Supple, No JVD, Negative Carotid Bruits Lungs: Clear to auscultation, Normal air movement Cardiovascular: Regular rate, Regular Rhythm, Normal S1, Normal S2, No murmurs Abdomen: Bowel Sounds Present, Soft, Non Tender, Non-Distended, - - Ileostomy bag in place. Extremities: No clubbing, No cyanosis, No edema, Capillary Refill Less than 3 Seconds Skin: No rashes, No breakdown Musculoskeletal: No Tenderness to Palpation of Joints or Extremities Neurological: Cranial nerves II-XII grossly intact, Neuro grossly intact Psych/Mental Status: Normal Affect, Appropriate Vital Signs Temp Pulse Resp BP Pulse Ox 98.4 F 85 18 142/70 H 94 02/26/17 08:08 02/26/17 10:55 02/26/17 10:46 02/26/17 08:08 02/26/17 10:46 Oxygen Flow Rate 2 Oxygen Delivery Method Room Air Weight: 90.4 kg Body Mass Index (BMI) 34.6 Intake and Output for Last 24 Hours 02/24/17 02/25/17 02/26/17 23:59 23:59 23:59 Intake Total 1260 / 1260 2565 / 2565 150 / 150 Output Total 150 / 150 1650 / 1650 Balance 1110 / 1110 915 / 915 150 / 150 Microbiology Past 72 Hours 02/25/17 20:00 Streptococcus pneumoniae Antigen (M - Final Urine Catheter - Catheter Streptococcus pneumonia Ag 02/25/17 20:00 Legionella Antigen - Final Urine Catheter - Catheter Laboratory Tests Past 24 Hrs 02/24/17 02/25/17 02/25/17 14:05 18:10 18:10 WBC 3.2 L RBC 3.12 L Hgb 9.3 L Hct 28.4 L MCV 91.0 MCH 29.8 MCHC 32.7 RDW 16.4 H RDW Differential 52.8 H Plt Count 136 L MPV 9.8 Immature Gran % (Auto) 1.600 H Neut % (Auto) 69.2 Lymph % (Auto) 14.4 L [place] % (Auto) 7.5 Eos % (Auto) 6.0 H Baso % (Auto) 1.3 H Absolute Neuts (auto) 2.2 Absolute Lymphs (auto) 0.46 L Total Counted Not Reportable Differential Comment Diff Path Review May foll Sodium Potassium Chloride Carbon Dioxide Anion Gap BUN Creatinine Estim Creat Clear Calc Est GFR (MDRD) Af Amer Est GFR (MDRD) Non-Af BUN/Creatinine Ratio Glucose Calcium Hep Bs Antigen Pending Hep Bs Antibody Pending Crossmatch See Detail 02/25/17 02/26/17 02/26/17 18:10 05:46 05:46 WBC 3.1 L RBC 2.96 L Hgb 8.7 L Hct 26.9 L MCV 90.9 MCH 29.4 MCHC 32.3 RDW 16.8 H RDW Differential 55.6 H Plt Count 138 L MPV 9.6 Immature Gran % (Auto) 0.600 Neut % (Auto) 73.3 H Lymph % (Auto) 12.6 L [place] % (Auto) 7.1 Eos % (Auto) 5.8 H Baso % (Auto) 0.6 Absolute Neuts (auto) 2.3 Absolute Lymphs (auto) 0.39 L Total Counted Not Reportable Differential Comment Diff Path Review Sodium 139 139 Potassium 3.7 3.8 Chloride 99 100 Carbon Dioxide 30.0 31.0 Anion Gap 10 8 BUN 24 H 28 H Creatinine 5.58 H 6.46 H Estim Creat Clear Calc 9.12 7.87 Est GFR (MDRD) Af Amer 10 L 9 L Est GFR (MDRD) Non-Af 8 L 7 L BUN/Creatinine Ratio 4.3 L 4.3 L Glucose 111 H 87 Calcium 8.2 L 8.3 L Hep Bs Antigen Hep Bs Antibody Crossmatch POC Glucose 02/25/17 16:19 POC Glucose 117 H Assessment/Plan Patient is a 56-year-old female admitted 02/22/2017 due to cough, congestion, fever, chills, dyspnea. She has a past medical history of metastatic endometrial cancer, end-stage renal disease on hemodialysis, anemia of chronic disease, hypertension, obesity, and history of colostomy. 1. Right lower lobe Streptococcus pneumoniae pneumonia, suspected post viral infection-recently positive for influenza A 02/21/17. Blood cultures positive which show Rhizobium radiobacter. Continue IV Rocephin. Infectious disease consulted. Per infectious disease, patient may require PICC line for further IV antibiotic therapy. They are to evaluate patient today. Patient will complete Tamiflu today. Oxygen stable on room air. Cough improved. Patient has remained afebrile. 2. Pancytopenia-secondary to chemotherapy for metastatic endometrial cancer. Stable, continue to monitor. Patient follows with Dr. Arteaga. 3. End-stage renal disease-scheduled for hemodialysis tomorrow, 02/27/17. Nephrology following. Monitor BMP. 4. Hypertension-stable, continue current regimen. 5. Status post colostomy and ileal conduit secondary to colon cancer- ostomy/wound RN consulted. 6. Anemia of chronic disease-continue GREG and IV iron. Currently stable. Patient did require 2 units packed red blood cells during admission for hemoglobin 6.4. Monitor CBC. DVT prophylaxis-SCDs, pharmacologic prophylaxis contraindicated at this time due to anemia. Discharge planning: Possible discharge home tomorrow pending ID consult/possible PICC line, following hemodialysis. This patient was seen by KVNG Krause under the supervision of Dr. Nicole. <Jamaal Nicole - Last Filed: 02/26/17 16:48> - Physical Exam Vital Signs Temp Pulse Resp BP Pulse Ox 98.1 F 88 18 139/71 H 95 02/26/17 14:21 02/26/17 14:21 02/26/17 14:21 02/26/17 14:21 02/26/17 14:21 Oxygen Flow Rate 2 Oxygen Delivery Method Room Air Weight: 199 lb 4.766 oz Body Mass Index (BMI) 34.6 Intake and Output for Last 24 Hours 02/24/17 02/25/17 02/26/17 23:59 23:59 23:59 Intake Total 1260 / 1260 2565 / 2565 150 / 150 Output Total 150 / 150 1650 / 1650 Balance 1110 / 1110 915 / 915 150 / 150 Microbiology Past 72 Hours 02/25/17 20:00 Streptococcus pneumoniae Antigen (M - Final Urine Catheter - Catheter Streptococcus pneumonia Ag 02/25/17 20:00 Legionella Antigen - Final Urine Catheter - Catheter Laboratory Tests Past 24 Hrs 02/24/17 02/25/17 02/25/17 14:05 18:10 18:10 WBC 3.2 L RBC 3.12 L Hgb 9.3 L Hct 28.4 L MCV 91.0 MCH 29.8 MCHC 32.7 RDW 16.4 H RDW Differential 52.8 H Plt Count 136 L MPV 9.8 Immature Gran % (Auto) 1.600 H Neut % (Auto) 69.2 Lymph % (Auto) 14.4 L [place] % (Auto) 7.5 Eos % (Auto) 6.0 H Baso % (Auto) 1.3 H Absolute Neuts (auto) 2.2 Absolute Lymphs (auto) 0.46 L Total Counted Not Reportable Differential Comment Diff Path Review Reviewed Sodium Potassium Chloride Carbon Dioxide Anion Gap BUN Creatinine Estim Creat Clear Calc Est GFR (MDRD) Af Amer Est GFR (MDRD) Non-Af BUN/Creatinine Ratio Glucose Calcium Hep Bs Antigen Pending Hep Bs Antibody Pending Crossmatch See Detail 02/25/17 02/26/17 02/26/17 18:10 05:46 05:46 WBC 3.1 L RBC 2.96 L Hgb 8.7 L Hct 26.9 L MCV 90.9 MCH 29.4 MCHC 32.3 RDW 16.8 H RDW Differential 55.6 H Plt Count 138 L MPV 9.6 Immature Gran % (Auto) 0.600 Neut % (Auto) 73.3 H Lymph % (Auto) 12.6 L [place] % (Auto) 7.1 Eos % (Auto) 5.8 H Baso % (Auto) 0.6 Absolute Neuts (auto) 2.3 Absolute Lymphs (auto) 0.39 L Total Counted Not Reportable Differential Comment Diff Path Review Sodium 139 139 Potassium 3.7 3.8 Chloride 99 100 Carbon Dioxide 30.0 31.0 Anion Gap 10 8 BUN 24 H 28 H Creatinine 5.58 H 6.46 H Estim Creat Clear Calc 9.12 7.87 Est GFR (MDRD) Af Amer 10 L 9 L Est GFR (MDRD) Non-Af 8 L 7 L BUN/Creatinine Ratio 4.3 L 4.3 L Glucose 111 H 87 Calcium 8.2 L 8.3 L Hep Bs Antigen Hep Bs Antibody Crossmatch POC Glucose 02/25/17 16:19 POC Glucose 117 H Assessment/Plan Hospitalist note: I am seeing this patient in conjunction with Lisa Plummer. I independently seen and examined the patient. Progress note above, laboratory data and imaging studies reviewed. I agree with above treatment plan. Patient seen and examined. No acute events overnight. States that her breathing is significantly better, complains of mild cough, improved. Denied fever chills. Vital signs are stable. - Physical Exam General: Alert, Oriented x3, Cooperative, No apparent distress. HEENT: Atraumatic, PERRLA, EOMI. Neck: Supple, No JVD, Negative Carotid Bruits, Trachea Midline, Thyroid Normal. Lungs: Diminished breath sounds bilaterally, No rhonchi, No wheeze, No rales. Cardiovascular: Regular rate, Regular Rhythm, Normal S1, Normal S2, PMI Normal. Abdomen: Bowel Sounds Present, Soft, Non Tender, Non-Distended, No Hepato-splenomegaly. Extremities: No clubbing, No cyanosis, No edema Skin: No rashes, No breakdown Neurological: Neuro grossly intact Assessment and plan: #1 right lower lobe streptococcal pneumonia, healthcare associated: She is on oral Levaquin. Initial blood culture revealed Rhzobium radiobacter. Repeat blood culture showed no growth in 48 hours. Pneumococcal antigen were positive. Her vital signs are stable, remained afebrile. Infectious disease on the case, plan to continue same treatment, possible DC home tomorrow. #2 influenza A: Completed 5 days of Tamiflu. #3 acute on chronic anemia required blood transfusion. She received 2 units of packed RBCs. #3 other chronic medical problems: ESRD on dialysis, pancytopenia, history of metastatic endometrial cancer, plan to continue current treatment as above. This note was generated with [employer] dictation software. It may contain incorrect words, spelling, and punctuation that were not noted in checking the note before signing. Code Visit Inpatient E&M: 62228 Subs Hosp L2
[2017-02-26 13:38] LABS: Pathologist Review Reviewed
[2017-02-26] MEDS: levoFLOXacin 500 MG Tablet PO (15:04)
[2017-02-26] MEDS: Nepro Liquid 120 ML LIQUID PO ×2 (15:04→17:17)
--- NOTE | 2017-02-26 16:19 | PCM.PN.ID ---
Subjective: Feeling better, no fever, still some cough but no SOB. - Physical Exam General: Alert, Cooperative Lungs: Diminished Cardiovascular: Regular rate, Regular Rhythm Abdomen: Soft, Non Tender, Non-Distended Skin: No rashes Vital Signs Temp Pulse Resp BP Pulse Ox 98.1 F 88 18 139/71 H 95 02/26/17 14:21 02/26/17 14:21 02/26/17 14:21 02/26/17 14:21 02/26/17 14:21 Oxygen Flow Rate 2 Oxygen Delivery Method Room Air Weight: 90.4 kg Body Mass Index (BMI) 34.6 Intake and Output for Last 24 Hours 02/24/17 02/25/17 02/26/17 23:59 23:59 23:59 Intake Total 1260 / 1260 2565 / 2565 150 / 150 Output Total 150 / 150 1650 / 1650 Balance 1110 / 1110 915 / 915 150 / 150 Microbiology Past 72 Hours 02/25/17 20:00 Streptococcus pneumoniae Antigen (M - Final Urine Catheter - Catheter Streptococcus pneumonia Ag 02/25/17 20:00 Legionella Antigen - Final Urine Catheter - Catheter Laboratory Tests Past 24 Hrs 02/24/17 02/25/17 02/25/17 14:05 18:10 18:10 WBC 3.2 L RBC 3.12 L Hgb 9.3 L Hct 28.4 L MCV 91.0 MCH 29.8 MCHC 32.7 RDW 16.4 H RDW Differential 52.8 H Plt Count 136 L MPV 9.8 Immature Gran % (Auto) 1.600 H Neut % (Auto) 69.2 Lymph % (Auto) 14.4 L [place] % (Auto) 7.5 Eos % (Auto) 6.0 H Baso % (Auto) 1.3 H Absolute Neuts (auto) 2.2 Absolute Lymphs (auto) 0.46 L Total Counted Not Reportable Differential Comment Diff Path Review Reviewed Sodium Potassium Chloride Carbon Dioxide Anion Gap BUN Creatinine Estim Creat Clear Calc Est GFR (MDRD) Af Amer Est GFR (MDRD) Non-Af BUN/Creatinine Ratio Glucose Calcium Hep Bs Antigen Pending Hep Bs Antibody Pending Crossmatch See Detail 02/25/17 02/26/17 02/26/17 18:10 05:46 05:46 WBC 3.1 L RBC 2.96 L Hgb 8.7 L Hct 26.9 L MCV 90.9 MCH 29.4 MCHC 32.3 RDW 16.8 H RDW Differential 55.6 H Plt Count 138 L MPV 9.6 Immature Gran % (Auto) 0.600 Neut % (Auto) 73.3 H Lymph % (Auto) 12.6 L [place] % (Auto) 7.1 Eos % (Auto) 5.8 H Baso % (Auto) 0.6 Absolute Neuts (auto) 2.3 Absolute Lymphs (auto) 0.39 L Total Counted Not Reportable Differential Comment Diff Path Review Sodium 139 139 Potassium 3.7 3.8 Chloride 99 100 Carbon Dioxide 30.0 31.0 Anion Gap 10 8 BUN 24 H 28 H Creatinine 5.58 H 6.46 H Estim Creat Clear Calc 9.12 7.87 Est GFR (MDRD) Af Amer 10 L 9 L Est GFR (MDRD) Non-Af 8 L 7 L BUN/Creatinine Ratio 4.3 L 4.3 L Glucose 111 H 87 Calcium 8.2 L 8.3 L Hep Bs Antigen Hep Bs Antibody Crossmatch POC Glucose 02/25/17 16:19 POC Glucose 117 H Route of nutrition/ use of supplements: [] Nutritional Intake: [] IV Site: [] Saavedra Catheter: [] - Assessment/Plan Antibiotics: [] Assessment/Plan: [] CAP with s.pneumo - will change ceftriaxone to po levaquin dosed for ESRD 500mg now, then 25mg q48h, which will also cover Rhizobium (+) bcx. Plan on start date 02/24/17, stop date 03/06/17. Will follow, d/w rifle case repairer. Ok for d/c home from my perspective.
[2017-02-27] VITALS (9 sets, daily range): BP systolic 128–156; BP diastolic 59–73; PULSE 60–104; RESP 16–18; TEMP 36.7–36.9; O2SAT 94–97
[2017-02-27] MEDS: Ipratropium/Albuterol Sulfate 3 ML AMPUL.NEB INHALATION ×2 (03:01→06:48)
[2017-02-27 05:56] LABS: Absolute Lymphocyte Count 0.45 X10^3/ul (0.83-4.51); Absolute Neutrophil Count 2.3 X10^3/uL (2.0-7.7); Basophil# 0.01 X10^3/uL; Basophil% 0.3 % (0-1); Eosinophil# 0.15 X10^3/uL; Eosinophils% 4.8 % (0-5); Hematocrit 26.8 % (37-47); Hemoglobin 8.6 g/dl (12.0-15.0); Lymphocyte # 0.45 X10^3/ul (4.0); Lymphocyte % 14.3 % (19-41); Mean Corp Hgb Conc 32.1 g/gl (32-36); Mean Corpuscular Hgb 29.3 pg (27.0-32.0); Mean Corpuscular Volume 91.2 fL (81-99); Mean Platelet Vol. 9.5 fl (6.2-12.0); Monocyte# 0.21 X10^3/uL; Monocyte% 6.7 % (0-10); Neutrophil # 2.29 X10^3/uL (2.7-7.7); Neutrophil % 72.9 % (47-70); Platelet Count 136 K/mm3 (150-450); RBC Distribution Width CV 16.4 % (11.6-14.6); Red Blood Count 2.94 M/mm3 (4.2-5.4); White Blood Count 3.1 K/mm3 (4.4-11.0)
[2017-02-27 05:59] LABS: Differential Indicated SCAN CRITERIA MET; POSITIVE COUNT NO; POSITIVE DIFFERENTIAL YES; POSITIVE MORPHOLOGY NO
[2017-02-27 06:21] LABS: Anion Gap 10 (5-15); BUN 42 mg/dL (7-18); BUN/Creat Ratio 5.3 RATIO (10-20); Calcium,Total 8.2 mg/dL (8.5-10.1); Chloride 97 mmol/L (98-107); Creatinine, Serum 7.95 mg/dL (0.55-1.02); EST Glomerular Filtration Rate 6 mL/min (>60); Est Glom Filt Rate - Afr Amer 7 mL/min (>60); Glucose 95 mg/dL (70-110); Potassium 3.8 mmol/L (3.5-5.1); Sodium Level 137 mmol/L (136-145)
[2017-02-27 06:22] LABS: Differential Comment SCANNED
--- NOTE | 2017-02-27 09:54 | PCM.PN.ID ---
Subjective: No fever/SOB/abd pain/n/v/d. Tolerating abx well. - Physical Exam General: Alert, Cooperative, No apparent distress Lungs: Clear to auscultation, Normal air movement Cardiovascular: Regular rate, Regular Rhythm Abdomen: Soft, Non Tender, Non-Distended Skin: No rashes Vital Signs Temp Pulse Resp BP Pulse Ox 98.0 F 94 18 146/71 H 95 02/27/17 07:43 02/27/17 08:05 02/27/17 07:43 02/27/17 07:43 02/27/17 07:43 Oxygen Flow Rate 2 Oxygen Delivery Method Room Air Weight: 89.1 kg Body Mass Index (BMI) 34.6 Intake and Output for Last 24 Hours 02/25/17 02/26/17 02/27/17 23:59 23:59 23:59 Intake Total 2565 / 2565 150 / 150 360 / 360 Output Total 1650 / 1650 Balance 915 / 915 150 / 150 360 / 360 Microbiology Past 72 Hours 02/25/17 20:00 Urine Culture - Preliminary Urine, Nephrostomy GNR Poss Pseudomonas sp GNR 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 02/25/17 20:00 Streptococcus pneumoniae Antigen (M - Final Urine Catheter - Catheter Streptococcus pneumonia Ag 02/25/17 20:00 Legionella Antigen - Final Urine Catheter - Catheter Laboratory Tests Past 24 Hrs 02/25/17 02/27/17 02/27/17 18:10 04:52 04:52 WBC 3.1 L RBC 2.94 L Hgb 8.6 L Hct 26.8 L MCV 91.2 MCH 29.3 MCHC 32.1 RDW 16.4 H RDW Differential 54.0 H Plt Count 136 L MPV 9.5 Immature Gran % (Auto) 1.000 H Neut % (Auto) 72.9 H Lymph % (Auto) 14.3 L [place] % (Auto) 6.7 Eos % (Auto) 4.8 Baso % (Auto) 0.3 Absolute Neuts (auto) 2.3 Absolute Lymphs (auto) 0.45 L Total Counted Not Reportable Differential Comment SCANNED Diff Path Review Reviewed Sodium 137 Potassium 3.8 Chloride 97 L Carbon Dioxide 30.0 Anion Gap 10 BUN 42 H Creatinine 7.95 H* Estim Creat Clear Calc 6.40 Est GFR (MDRD) Af Amer 7 L Est GFR (MDRD) Non-Af 6 L BUN/Creatinine Ratio 5.3 L Glucose 95 Calcium 8.2 L Route of nutrition/ use of supplements: [] Nutritional Intake: [] IV Site: [] Saavedra Catheter: [] - Assessment/Plan Antibiotics: [] Assessment/Plan: [] CAP with s.pneumo - cont po levaquin dosed for ESRD with 250mg q48h, which will also cover Rhizobium (+) bcx. Plan on start date 02/24/17, stop date 03/06/17. Will follow as needed, d/w nursing. Ok for d/c home from my perspective.
--- NOTE | 2017-02-27 11:48 | PCM.DC ---
You will use the following diet at home:: Renal (restricted protein/sodium) Discharge Activity: Return to Normal Activity Call your doctor if you observe: Fever of 101 or Higher, Shortness of breath, Dizziness, Fainting spells, Chest pain, Increased palpitations (irregular heartbeat) Allergies/Adverse Reactions: Allergies No Known Allergies Allergy (Verified 02/22/17 12:48) Medications to take at Discharge Calcium Acetate [Phoslo Gel Cap] 2 cap PO DAILY 07/23/14 Docusate Sodium [Colace] 100 mg PO BID 07/23/14 Folic Acid 1 mg PO DAILY@0800 07/23/14 Amlodipine [Norvasc] 10 mg PO DAILY 02/14/15 Lisinopril [Zestril] 20 mg PO BID 02/14/15 Ergocalciferol [Vitamin D] 50,000 unit PO QMONTH 03/02/16 Famotidine [Pepcid AC] 10 mg PO DAILY 03/02/16 Acetaminophen [Tylenol] 650 mg PO BID PRN 02/16/17 Levofloxacin [Levaquin] 250 mg PO Q48 #4 tab 02/27/17 The following prescriptions were given: Levofloxacin [Levaquin] 250 mg PO Q48 #4 tab Primary Care Physician: Lawrence Dozier DO [Primary Care Provider] - Please follow up with your Primary Care Physician in: 1 week Please Follow Up With: Eric Arteaga DO When: As Scheduled Please Follow Up With: Phuong King MD When: As scheduled Proposed Discharge Date: 02/27/17
--- NOTE | 2017-02-27 11:51 | PCM.DC.SUM ---
<Lisa Plummer - Last Filed: 02/27/17 11:58> Discharge Date and Diagnosis Date of Admission: 02/22/17 Date of Discharge: 02/27/17 - Primary Discharge Diagnosis 1. Right lower lobe Streptococcus pneumoniae pneumonia 2. Pancytopenia secondary to chemotherapy 3. Bacteremia with blood cultures positive for rhizobium radiobacter - Secondary Discharge Diagnosis Chronic Problems Endometrial cancer (Chronic) Status post hysterectomy, cystectomy and partial colectomy due to metastatic disease End-stage renal disease on hemodialysis (Chronic) History of hysterectomy for cancer (Chronic) History of nephrectomy (Chronic) Anemia of chronic renal failure, stage 5 (Chronic) Anemia of chronic renal failure (Chronic) Hypertension (Chronic) Obesity (BMI 30-39.9) (Chronic) History of colostomy (Chronic) History of ileal conduit (Chronic) Hospital Course and Treatment Imaging Results: Diagnostic Data Chest X-Ray 02/25/17 05:55 IMPRESSION: Stable Extensive ill-defined airspace opacities are again noted in the right lung. There is a small right pleural effusion. Electronically Signed: Sulaiman Licona MD at 7:11 EST Tel , Service support , Dr. King-nephrology Dr. Maier- ID Operations: None Procedures: None Summary of Care Provided: Patient is a 56-year-old female admitted 02/22/2017 due to cough, congestion, fever, chills, dyspnea. She has a past medical history of metastatic endometrial cancer, end-stage renal disease on hemodialysis, anemia of chronic disease, hypertension, obesity, and history of colostomy. 1. Right lower lobe Streptococcus pneumoniae pneumonia, suspected post viral infection-recently positive for influenza A 02/21/17. Blood cultures positive which show Rhizobium radiobacter. Patient received IV Rocephin during admission. Infectious disease was consulted. Per ID recommendations, patient will be discharged on oral Levaquin 250 mg every 48 hours with a stop date of 03/06/2017. Patient completed 5 day course of Tamiflu. Her oxygen is stable on room air. Walking oxygen test completed prior to discharge and patient did not need home oxygen. Patient remains afebrile. She denies further shortness of breath. Repeat blood cultures showing no growth. 2. Pancytopenia-secondary to chemotherapy for metastatic endometrial cancer. Stable, patient follows with Dr. Arteaga. 3. End-stage renal disease-, , Sun dialysis schedule. Received hemodialysis day of discharge. Continue follow-up with nephrology as outpatient. 4. Hypertension-stable, continue current regimen. 5. Status post colostomy and ileal conduit secondary to colon cancer 6. Anemia of chronic disease-continue GREG and IV iron as ordered by nephrology as outpatient. Currently stable. Patient did require 2 units packed red blood cells during admission for hemoglobin 6.4. Hemoglobin at discharge 8.6. General: Alert, Oriented x3, Cooperative HEENT: Atraumatic, PERRLA, EOMI, Normocephalic Neck: Supple, No JVD, Negative Carotid Bruits Lungs: Clear to auscultation, Normal air movement Cardiovascular: Regular rate, Regular Rhythm, Normal S1, Normal S2, No murmurs Abdomen: Bowel Sounds Present, Soft, Non Tender, Non-Distended, - - Ileostomy bag in place. Extremities: No clubbing, No cyanosis, No edema, Capillary Refill Less than 3 Seconds Skin: No rashes, No breakdown Musculoskeletal: No Tenderness to Palpation of Joints or Extremities Neurological: Cranial nerves II-XII grossly intact, Neuro grossly intact Psych/Mental Status: Normal Affect, Appropriate Patient seen and examined prior to discharge. Physical assessment as noted above. Patient stable for discharge home with the follow-up recommendations as noted above. This patient was seen by KVNG Krause under the supervision of Dr. Nicole. Discharge Diet: Renal Diet Discharge Activity: Return to Normal Activity Call your doctor if you observe: Fever of 101 or Higher, Shortness of breath, Dizziness, Fainting spells, Chest pain, Increased palpitations (irregular heartbeat) Home Medications: Medications to take at Discharge Calcium Acetate [Phoslo Gel Cap] 2 cap PO DAILY 07/23/14 Docusate Sodium [Colace] 100 mg PO BID 07/23/14 Folic Acid 1 mg PO DAILY@0800 07/23/14 Amlodipine [Norvasc] 10 mg PO DAILY 02/14/15 Lisinopril [Zestril] 20 mg PO BID 02/14/15 Ergocalciferol [Vitamin D] 50,000 unit PO QMONTH 03/02/16 Famotidine [Pepcid AC] 10 mg PO DAILY 03/02/16 Acetaminophen [Tylenol] 650 mg PO BID PRN 02/16/17 Levofloxacin [Levaquin] 250 mg PO Q48 #4 tab 02/27/17 Following Prescrptions Were Given to Patient: Levofloxacin [Levaquin] 250 mg PO Q48 #4 tab Primary Care Physician: Lawrence Dozier DO [Primary Care Provider] - Please follow up with your Primary Care Physician in: 1 week Please Follow Up With: Eric Arteaga DO When: As Scheduled Please Follow Up With: Phuong King MD When: As scheduled Disposition: Home Minutes spent on discharge:: 35 Patient Condition:: Stable Meaningful Use Info Meaningful Use Diagnoses (Choose all that apply): None applicable <Jamaal Nicole E - Last Filed: 02/27/17 17:18> Discharge Date and Diagnosis - Primary Discharge Diagnosis #4 acute on chronic anemia requiring blood transfusion. - Secondary Discharge Diagnosis Chronic Problems Endometrial cancer (Chronic) Status post hysterectomy, cystectomy and partial colectomy due to metastatic disease End-stage renal disease on hemodialysis (Chronic) History of hysterectomy for cancer (Chronic) History of nephrectomy (Chronic) Anemia of chronic renal failure, stage 5 (Chronic) Anemia of chronic renal failure (Chronic) Hypertension (Chronic) Obesity (BMI 30-39.9) (Chronic) History of colostomy (Chronic) History of ileal conduit (Chronic) Hospital Course and Treatment Summary of Care Provided: Hospitalist note: Discharge summary above reviewed and I agree with above discharge and treatment plan. Patient was admitted for cough, congestion with shortness of breath as well as fever and chills, found to have acute right lower lobe pneumococcal pneumonia as well as pancytopenia secondary to chemotherapy and bacteremia. She was treated with IV antibiotics. Pneumococcal antigen was positive for Streptococcus pneumonia antigen. Initial blood culture was positive for rhizobium radiobacter. Infection was disease consulted and adjusted antibiotics. Repeat blood culture after IV antibiotic therapy revealed no growth in 48 hours. Patient tested positive for influenza A on nasal swab and she was treated with Tamiflu. She was found to have acute on chronic anemia that required blood transfusion. She received 2 units of packed RBCs. She does have pancytopenia which is attributed to history of metastatic endometrial cancer and chemotherapy. Her total white blood cell count and absolute neutrophil count improved. Patient remained afebrile throughout admission. She was continued on dialysis as per her schedule. With IV antibiotic therapy, her symptoms improved and his vital signs are stabilized. Patient discharged home in a stable medical condition, discharged on Levaquin according to infectious disease recommendations, continued on her other chronic home medication without any changes, recommended follow-up with PCP in 1 week, follow-up with oncology as scheduled, follow-up with nephrology as scheduled as well. . Code Visit Inpatient E&M: 87380 Disch Hosp
--- NOTE | 2017-02-27 12:21 | PCM.PN.REN ---
Subjective: Patient was seen during HD session BQ 400,DQ 600, UF 1.5L, BP 160/70 HR 90 No complaints. - Physical Exam General: Alert, Oriented x3 HEENT: Atraumatic Oral: Moist Mucosa Neck: Supple, No JVD Lungs: Clear to auscultation, Normal air movement, No rhonchi, No wheeze Cardiovascular: Regular rate, Regular Rhythm, Normal S1 Abdomen: Bowel Sounds Present, Soft, Non Tender Extremities: No clubbing, No cyanosis, No edema Skin: No rashes Musculoskeletal: No Tenderness to Palpation of Joints or Extremities Lymphatic: No Cervical, Supraclavicular, or Inguinal Adenopathy Neurological: Cranial nerves II-XII grossly intact, Neuro grossly intact Psych/Mental Status: Normal Affect Vital Signs Temp Pulse Resp BP Pulse Ox 98.1 F 89 18 156/73 H 95 02/27/17 10:35 02/27/17 10:35 02/27/17 10:35 02/27/17 10:35 02/27/17 10:35 Oxygen Flow Rate 2 Oxygen Delivery Method Room Air Weight: 89.1 kg Body Mass Index (BMI) 34.6 Intake and Output for Last 24 Hours 02/25/17 02/26/17 02/27/17 23:59 23:59 23:59 Intake Total 2565 / 2565 150 / 150 360 / 360 Output Total 1650 / 1650 Balance 915 / 915 150 / 150 360 / 360 Microbiology Past 72 Hours 02/25/17 20:00 Urine Culture - Preliminary Urine, Nephrostomy GNR Poss Pseudomonas sp GNR lactose trauma program manager 02/25/17 20:00 Streptococcus pneumoniae Antigen (M - Final Urine Catheter - Catheter Streptococcus pneumonia Ag 02/25/17 20:00 Legionella Antigen - Final Urine Catheter - Catheter Laboratory Tests Past 24 Hrs 02/25/17 02/27/17 02/27/17 18:10 04:52 04:52 WBC 3.1 L RBC 2.94 L Hgb 8.6 L Hct 26.8 L MCV 91.2 MCH 29.3 MCHC 32.1 RDW 16.4 H RDW Differential 54.0 H Plt Count 136 L MPV 9.5 Immature Gran % (Auto) 1.000 H Neut % (Auto) 72.9 H Lymph % (Auto) 14.3 L Foard % (Auto) 6.7 Eos % (Auto) 4.8 Baso % (Auto) 0.3 Absolute Neuts (auto) 2.3 Absolute Lymphs (auto) 0.45 L Total Counted Not Reportable Differential Comment SCANNED Diff Path Review Reviewed Sodium 137 Potassium 3.8 Chloride 97 L Carbon Dioxide 30.0 Anion Gap 10 BUN 42 H Creatinine 7.95 H* Estim Creat Clear Calc 6.40 Est GFR (MDRD) Af Amer 7 L Est GFR (MDRD) Non-Af 6 L BUN/Creatinine Ratio 5.3 L Glucose 95 Calcium 8.2 L Assessment/Plan 1- ESRD On TTS. HD session today URR goal 70%. HD orders as per the chronic outpatient orders Next HD 03/01 Dose medications for ESRD patient 2-Anemia: management is as per outpatient order for GREG and IV iron 3- HTN: BP is well controlled. On lisinopril 20 BID 4- BMD: On Ca acetate. 5- RLL pneumonia. On Abx as per the primary service. Please dose it for ESRD patient Thank you for the consult. Will continue to follow Elena Morales MD [phone]
--- NOTE | 2017-02-27 12:34 | NURSING ---
PT WISHES TO TAKE HER OWN MEDS AT HOME
[2017-02-27 17:11] LABS: HEPATITIS B SURFACE AG Negative (Negative); Hep B Surface Antibodies Reactive (.)
== END 2017-02-27 13:00 | disposition home or self-care (01) | DRG 193 ==
LOC: ED 18:18 → MS3 18:54
PROVIDERS: Emergency Medicine; Internal Medicine; Pediatrics Pediatric Nephrology; Student in an Organized Health Care Education/Training Program; Admitting Provider Family Medicine; Emergency Provider Emergency Medicine; Family Provider Student in an Organized Health Care Education/Training Program; PCP Student in an Organized Health Care Education/Training Program; Visit Provider Hospitalist
DX: J10.08 Influenza due to other identified influenza virus with other specified pneumonia (principal); D61.810 Antineoplastic chemotherapy induced pancytopenia; I12.0 Hypertensive chronic kidney disease with stage 5 chronic kidney disease or end stage renal disease; C78.00 Secondary malignant neoplasm of unspecified lung; R78.81 Bacteremia; N18.6 End stage renal disease; Z90.6 Acquired absence of other parts of urinary tract; B96.89 Other specified bacterial agents as the cause of diseases classified elsewhere; C34.90 Malignant neoplasm of unspecified part of unspecified bronchus or lung; J13 Pneumonia due to Streptococcus pneumoniae; Z87.891 Personal history of nicotine dependence; Z90.5 Acquired absence of kidney; Z93.3 Colostomy status; Z90.49 Acquired absence of other specified parts of digestive tract; Z99.2 Dependence on renal dialysis; T45.1X5A Adverse effect of antineoplastic and immunosuppressive drugs, initial encounter; Z90.710 Acquired absence of both cervix and uterus; D63.1 Anemia in chronic kidney disease; E66.9 Obesity, unspecified; Z68.34 Body mass index [BMI] 34.0-34.9, adult; Z79.899 Other long term (current) drug therapy; Z93.6 Other artificial openings of urinary tract status; Z85.42 Personal history of malignant neoplasm of other parts of uterus
CPT/HCPCS: 36415; 71045; 71046; 80048; 80053; 80202; 82962; 83605; 83735; 84100; 85014; 85018; 85025; 85610; 85730; 86706; 86850; 86870; 86900; 86902; 86920; 86921; 86922; 87040; 87077; 87086; 87088; 87186; 87340; 87449; 87804; 90937; 93005; 94640; 94667; 94668; 97166; 97802; 99283; J0885; J7030; P9016; A4216; G0257; J0696; J2405

== ENCOUNTER → 2017-04-02 10:47 | Outpatient (CLI) | payer MEDICARE, SELFPAY ==
[2017-04-02 11:02] LABS: International Normalized Ratio 1.1; Prothrombin Time (Protime)PT. 13.7 SECONDS (11.7-14.9)
[2017-04-02 11:03] LABS: Partial Thromboplast Time 34.9 Seconds (24.1-36.2)
== END ==
PROVIDERS: Family Provider Student in an Organized Health Care Education/Training Program; Visit Provider Internal Medicine Hematology & Oncology
DX: C33 Malignant neoplasm of trachea (principal); C34.80 Malignant neoplasm of overlapping sites of unspecified bronchus and lung; R79.1 Abnormal coagulation profile
CPT/HCPCS: 85610; 85730

== ENCOUNTER → 2017-04-02 14:08 | Outpatient (CLI) | payer MEDICARE, SELFPAY | PROVIDERS: Family Provider Student in an Organized Health Care Education/Training Program; PCP Student in an Organized Health Care Education/Training Program; Visit Provider Internal Medicine Hematology & Oncology | DX: C33 Malignant neoplasm of trachea (principal); C34.80 Malignant neoplasm of overlapping sites of unspecified bronchus and lung; R79.1 Abnormal coagulation profile ==

== ENCOUNTER → 2017-04-04 07:50 | Outpatient (CLI) | payer MEDICARE, SELFPAY ==
--- NOTE | 2017-04-04 07:54 | US_ITS ---
STUDY: SUPERFICIAL ULTRASOUND - PLEURAL SPACES. REASON FOR EXAM: Female, 56 years old. Possible pleural effusion. TECHNIQUE: A superficial ultrasound was performed with real-time and static mariscal-scale imaging. COMPARISON: None. FINDINGS: The right and left pleural spaces were examined by ultrasound. There is no evidence of pleural effusion. US/Chest IMPRESSION: No evidence of pleural effusion. Electronically Signed: Jose De Jesus Collado MD at 12:03 EST Tel [phone], Service support ,
== END ==
PROVIDERS: Family Provider Student in an Organized Health Care Education/Training Program; PCP Student in an Organized Health Care Education/Training Program; Visit Provider Internal Medicine Hematology & Oncology
DX: J90 Pleural effusion, not elsewhere classified (principal)
CPT/HCPCS: 76604

== ENCOUNTER 2017-06-07 12:26 | Inpatient (IN) | payer MEDICARE, SELFPAY ==
[2017-06-07] VITALS (11 sets, daily range): BP systolic 125–147; BP diastolic 59–67; PULSE 98–122; RESP 18–36; TEMP 36.2–37.2; O2SAT 53–96; BMI 33.5; BMI 34.5
--- NOTE | 2017-06-07 12:58 | EKG12_ITS ---
Test Reason : SOB Blood Pressure : / mmHG Vent. Rate : 115 BPM Atrial Rate : 115 BPM P-R Int : 158 ms QRS Dur : 070 ms QT Int : 310 ms P-R-T Axes : 037 071 048 degrees QTc Int : 428 ms Sinus tachycardia Otherwise normal ECG Confirmed by AYLEEN SOLOMON MD ([id number]), movie editor FAISAL CLEMENTE ([id number]) on 06/11/2017 2:50:25 PM Referred By: JIMENA
--- NOTE | 2017-06-07 13:01 | ED.VISSUMM ---
- ER Visit Summary Date of Service: 06/07/17 Chief Complaint: Shortness of breath History of Present Illness: The patient is a 57 F 3 of end-stage renal disease with dialysis. Last dialysis was Sunday. She has a history of surgical CA with lung metastases. Prior renal CA with the left kidney resected. Urostomy and colostomy bags. Currently on chemo and radiation. Pleural effusions and anemia. Patient states that since Sunday she has been increasing short of breath. Has cough and subjective fever and chills. Denies any chest pain. No hemoptysis. No history of DVT or PE. No recent hospitalization since February where she was admitted for pneumonia. She denies any leg pain or leg swelling. There is no pleuritic chest pain. Physical Examination: Middle-aged female vital signs are stable a blood pressures pending. Pulse ox however is hypoxia 53% on room air on oxygen she is in the low 90s. She is tachycardic. H EENT exam unremarkable neck nontender no JVD no lymphadenopathy. Lungs diminished in both bases. No rales, rhonchi or wheezing. Heart tachycardic no murmur. Abdomen soft and nontender. Normal bowel sounds no peritoneal signs. Both a colostomy and urostomy bag are present. Extremities she moves all 4. Neurovascular intact. Calves nontender without edema or cords. Neurologically she is awake and alert with normal motor strength. Test Results: Chest x-ray shows bilateral pulmonary infiltrates and or pulmonary edema. Clinically is more consistent with pulmonary edema but she has had recent pneumonia and is cannot be ruled out. White count is 6. H&H 8 and 28. Which is her baseline. Electrolytes unremarkable creatinine of 8 which is her baseline with end-stage renal disease. PT/INR normal. Troponin normal. EKG sinus tachycardia rate of 115. Emergency Department Course and Treatment: Middle-aged female with extensive past medical history short of breath with hypoxia. Treatment Plan: Patient was started on both Rocephin and Zithromax for a potential healthcare acquired pneumonia. I have already spoken to the hospitalist will admit her. She will most likely need dialysis for pulmonary edema and her end-stage renal disease. Disposition: Admission Impression: Dyspnea with hypoxia Acute pulmonary edema Rule out healthcare acquired pneumonia History of end-stage renal disease with dialysis. Cervical CA with metastases Chronic anemia This note was generated with [employer] dictation software. It may contain incorrect words, spelling, and punctuation that were not noted in review of the chart prior to signing ED Disposition - Plan for ED Patient: Chief Complaint: Cough
--- NOTE | 2017-06-07 13:05 | RAD_ITS ---
STUDY: X-RAY CHEST REASON FOR EXAM: Female, 57 years old. Chest pain and cough. TECHNIQUE: Single AP portable view of the chest. COMPARISON: Comparison is made with prior examination dated February 25, 2017. FINDINGS: EKG electrodes are seen. There now is evidence of diffuse bilateral infiltrates with blunting of the right cardiac phrenic angle. Underlying metastasis cannot be excluded. Follow-up is recommended. Normal size heart. Normal mediastinum and nacho. Normal visualized pulmonary arteries. Normal visualized aortic arch and descending thoracic aorta. There are diffuse degenerative changes of the visualized thoracic spine. Normal visualized ribs, clavicles, and shoulders. There is no demonstrated abnormality of the visualized soft tissue structures of the upper abdomen. RAD/Chest 1 View (Portable) IMPRESSION: Diffuse bilateral infiltrates. Radiographic follow-up is recommended. Blunting of the right costophrenic angle. Electronically Signed: Jose De Jesus Collado MD at 13:22 EDT Tel [phone], Service support ,
[2017-06-07 13:13] LABS: International Normalized Ratio 1.2; Prothrombin Time (Protime)PT. 14.7 SECONDS (11.7-14.9)
[2017-06-07 13:14] LABS: Absolute Lymphocyte Count 0.54 X10^3/ul (0.83-4.51); Absolute Neutrophil Count 5.5 X10^3/uL (2.0-7.7); Basophil# 0.02 X10^3/uL; Basophil% 0.3 % (0-1); Eosinophil# 0.04 X10^3/uL; Eosinophils% 0.6 % (0-5); Hematocrit 28.9 % (37-47); Hemoglobin 8.8 g/dl (12.0-15.0); Lymphocyte # 0.54 X10^3/ul (4.0); Lymphocyte % 8.4 % (19-41); Mean Corp Hgb Conc 30.4 g/gl (32-36); Mean Corpuscular Hgb 29.1 pg (27.0-32.0); Mean Corpuscular Volume 95.7 fL (81-99); Mean Platelet Vol. 8.8 fl (6.2-12.0); Monocyte# 0.33 X10^3/uL; Monocyte% 5.1 % (0-10); Neutrophil # 5.45 X10^3/uL (2.7-7.7); Platelet Count 244 K/mm3 (150-450); RBC Distribution Width CV 19.3 % (11.6-14.6); RBC Distribution Width SD 67.3 fl (35.1-43.9); Red Blood Count 3.02 M/mm3 (4.2-5.4); White Blood Count 6.4 K/mm3 (4.4-11.0)
[2017-06-07 13:16] LABS: Differential Indicated SCAN CRITERIA MET; POSITIVE COUNT NO; POSITIVE DIFFERENTIAL YES; POSITIVE MORPHOLOGY YES
[2017-06-07 13:26] LABS: Anion Gap 9 (5-15); BUN 43 mg/dL (7-18); BUN/Creat Ratio 5.2 RATIO (10-20); Calcium,Total 8.9 mg/dL (8.5-10.1); Chloride 99 mmol/L (98-107); Creatinine, Serum 8.24 mg/dL (0.55-1.02); EST Glomerular Filtration Rate 5 mL/min (>60); Est Glom Filt Rate - Afr Amer 7 mL/min (>60); Glucose 128 mg/dL (74-106); Potassium 4.7 mmol/L (3.5-5.1); Sodium Level 138 mmol/L (136-145)
[2017-06-07 13:40] LABS: Anisocytosis 2+; Hypochromasia 2+; Macrocytosis RARE; Platelet Estimate ADEQUATE (ADEQ); Polychromasia RARE
--- NOTE | 2017-06-07 15:03 | CASEMGMT ---
Social Work Note In to complete initial assessment as pt will be admitted. Introduced self and role at [facility]. The pt is accompanied by her spouse. Pt reports to live in a mobile home with 3 steps for entry and a handrail. DME consists of a rollator that she does not use at baseline, no oxygen. She has dialysis at [facility], , and Sunday at 0600 and her spouse provides transportation. Confirms that her primary care physician is Dr. Lawrence Dozier, and she sees Dr. Arteaga for her cancer. Last chemotherapy treatment was Sunday, 06/04. Preferred pharmacy is [facility]. Pt denies having advanced directives and declines to complete at this time. Anticipates returning home at discharge. Lisa Alvarez, MACHINE TOOL DRESSER, WASHCOAT WIPER
--- NOTE | 2017-06-07 15:44 | PCM.HP.STD ---
Problem List (1) Bacteremia Status: Chronic Comment: 02/22/16 Bld Cx preliminary Gram positive keyla (2) HCAP (healthcare-associated pneumonia) Status: Acute (3) Endometrial cancer Status: Chronic Comment: Status post hysterectomy, cystectomy and partial colectomy due to metastatic disease (4) End-stage renal disease on hemodialysis Status: Chronic (5) History of hysterectomy for cancer Status: Chronic (6) History of nephrectomy Status: Chronic (7) Acute respiratory failure with hypoxemia Status: Acute History of Present Illness Date of Admission: 06/07/17 Chief Complaint: Shortness of breath and cough The patient is a 57 year old F with past medical history of end-stage renal disease on hemodialysis, metastatic cervical cancer, history of pneumococcal pneumonia, anemia of chronic kidney disease, status post colostomy and ileal conduit secondary to colon cancer, she presented to the emergency room due to progressive cough and shortness of breath. The patient normally gets her dialysis on Tuesdays, and Saturdays. She missed her dialysis today due to being sick. in the ED the patient was noted to be hypoxic with pulse oximetry in the 50s and she was placed on supplemental oxygen. She reports no chest pain, fever, purulent cough, abdominal pain, nausea or vomiting. In the ED she underwent a chest x-ray and it showed bilateral pulmonary infiltrates consistent with pulmonary edema, has no fever or leukocytosis. He was given IV Rocephin and azithromycin for possible pneumonia. When I saw her in the ED she was alert and oriented to time place and person she did not appear to have use of her accessory respiratory musculature and she appeared nontoxic. Past Medical History Past Medical History (Chronic Problems): Chronic Problems Bacteremia (Chronic) 02/22/16 Bld Cx preliminary Gram positive keyla Endometrial cancer (Chronic) Status post hysterectomy, cystectomy and partial colectomy due to metastatic disease End-stage renal disease on hemodialysis (Chronic) History of hysterectomy for cancer (Chronic) History of nephrectomy (Chronic) Anemia of chronic renal failure, stage 5 (Chronic) Anemia of chronic renal failure (Chronic) Hypertension (Chronic) Obesity (BMI 30-39.9) (Chronic) History of colostomy (Chronic) History of ileal conduit (Chronic) Allergies No Known Allergies Allergy (Verified 02/22/17 12:48) Home Medications: Ambulatory Orders Medication Instructions Recorded Calcium Acetate [Phoslo Gel Cap] 2 cap PO TID 07/23/14 Docusate Sodium [Colace] 100 mg PO BID PRN 07/23/14 Folic Acid 1 mg PO DAILY@0800 07/23/14 Amlodipine [Norvasc] 10 mg PO DAILY 02/14/15 Lisinopril [Zestril] 20 mg PO BID 02/14/15 Ergocalciferol [Vitamin D] 50,000 unit PO TH 03/02/16 Famotidine [Pepcid AC] 20 mg PO BID PRN 03/02/16 Acetaminophen [Tylenol] 650 mg PO BID PRN 02/16/17 B Complex W-C No.20/Folic Acid 1 mg PO DAILY 06/07/17 [Nephrocaps Softgel] Clobetasol Propionate/Emoll 15 gm TP BID PRN 06/07/17 [Clobetasol Emollient 0.05% Crm] Ondansetron [Zofran] 8 mg PO Q8H PRN PRN 06/07/17 Surgical History: hysterectomy - for cervical cancer, - - Left nephrectomy for cancer with rt ileoconduit, Colostomy, Hysterectomy with BL RAHEEL, AVF RUE. Smoking Status: Former smoker - *Family History Paternal History Items: No pertinent history Maternal History Items: No pertinent history Review of Systems Comment: All Systems were reviewed with pertinent positives mentioned in the HPI above. VTE Information - Inpt Only VTE Present on Admission: Yes VTE Mechan Device Prophylaxis: SCD's VTE Pharm Prophylaxis ordered?: No - Physical Exam General: Alert, Oriented x3 Neck: Supple, No JVD Lungs: Rales, Rhonchi Cardiovascular: Normal S1, Normal S2 Abdomen: Soft Neurological: Cranial nerves II-XII grossly intact, Deep Tendon Reflexes 2+/4 and Symmetrical, Motor Exam 5/5 strength throughout Psych/Mental Status: Normal Affect Vital Signs Temp Pulse Resp BP Pulse Ox 97.2 F L 103 H 18 140/59 H 96 06/07/17 12:28 06/07/17 14:30 06/07/17 14:30 06/07/17 14:30 06/07/17 14:30 Assessment/Plan 1. Acute respiratory failure with hypoxia secondary to acute pulmonary edema; will continue on supplemental oxygen and wean as tolerated. 2. Acute pulmonary edema secondary to missed dialysis; he has been consulted the patient would need to undergo emergent hemodialysis today. We will challenge her with IV Lasix but she is unlikely to respond to diuretics at this time. 3. Presumptive pneumonia; bilateral infiltrates noted on her CXR most likely represents pulmonary edema, the patient does not have any fever or leukocytosis. However given her immunocompromised status and history of pneumococcal pneumonia with bacteremia in February of this year , I would rather place her on IV Zosyn until all cultures her negative in the next 48 hours. 4. End-stage renal disease; this is on Tuesdays, and Saturdays, she missed dialysis today and now presents with pulmonary edema ,she needs to undergo dialysis today, nephrology is consulted for this. 5. lung cancer involving her right lung , currently receiving on chemotherapy. 6. status post colostomy and ileal conduit secondary to colon cancer; her abdominal exam is benign. 7. essential Hypertension; this is controlled. 8. history of metastatic cervical cancer status post radiation . 9. DVT prophylaxis with subcutaneous heparin. Code Visit Inpatient E&M: 34400 Init Hosp L3
[2017-06-07] MEDS: Ceftriaxone 1 GM/50 ML BAG IV (16:07)
[2017-06-07] MEDS: Calcium Acetate 667 MG Capsule 1334 MG PO (17:47)
[2017-06-07] MEDS: Piperacil/Tazobactam 3.375 GM/50 ML ML IV (22:37)
[2017-06-07] MEDS: Heparin Injection 5,000 UNITS/ML Syringe 5000 UNITS SC (22:37)
[2017-06-07] MEDS: Lisinopril 20 MG Tablet PO (22:40)
[2017-06-07] MEDS: Acetaminophen 325 MG Tablet 650 MG PO (22:50)
[2017-06-08] VITALS (24 sets, daily range): BP systolic 113–154; BP diastolic 51–86; PULSE 88–111; RESP 14–36; TEMP 36.3–37.1; O2SAT 91–100
[2017-06-08] MEDS: Piperacil/Tazobactam 3.375 GM/50 ML ML IV ×3 (06:02→21:28)
[2017-06-08] MEDS: Acetaminophen 325 MG Tablet 650 MG PO ×2 (06:02→21:27)
[2017-06-08 06:47] LABS: Hematocrit 29.9 % (37-47); Hemoglobin 9.2 g/dl (12.0-15.0); Mean Corp Hgb Conc 30.8 g/gl (32-36); Mean Corpuscular Hgb 29.3 pg (27.0-32.0); Mean Corpuscular Volume 95.2 fL (81-99); Mean Platelet Vol. 8.9 fl (6.2-12.0); Platelet Count 278 K/mm3 (150-450); RBC Distribution Width SD 65.7 fl (35.1-43.9); Red Blood Count 3.14 M/mm3 (4.2-5.4); White Blood Count 10.7 K/mm3 (4.4-11.0)
[2017-06-08 06:50] LABS: Scan Indicated on CBC? Y/N YES- FLAGS NOTED
--- NOTE | 2017-06-08 06:58 | DIALYSIS ---
Tx was discontinued 3 min early d/t legs cramping. Dr. Morales is aware. UF of 2456ml. Ran on 2k bath. Used upper right arm fistula. [place] removed post tx. See tx sheet for more details. Report was given to GERTRUDIS Robbins.
[2017-06-08 07:04] LABS: Anion Gap 10 (5-15); BUN 18 mg/dL (7-18); BUN/Creat Ratio 4.2 RATIO (10-20); Calcium,Total 8.1 mg/dL (8.5-10.1); Chloride 100 mmol/L (98-107); Creatinine, Serum 4.28 mg/dL (0.55-1.02); EST Glomerular Filtration Rate 11 mL/min (>60); Est Glom Filt Rate - Afr Amer 14 mL/min (>60); Estimated Creatinine Clearance 11.75 ml/min; Glucose 110 mg/dL (74-106); Potassium 4.1 mmol/L (3.5-5.1); Sodium Level 137 mmol/L (136-145)
[2017-06-08 07:26] LABS: Differential Comment SCANNED
[2017-06-08] MEDS: amLODIPine 10 MG Tablet PO (09:19)
[2017-06-08] MEDS: Heparin Injection 5,000 UNITS/ML Syringe 5000 UNITS SC ×2 (09:19→21:27)
[2017-06-08] MEDS: Folic Acid 1 MG Tablet PO (09:19)
[2017-06-08] MEDS: Lisinopril 20 MG Tablet PO ×2 (09:19→21:27)
--- NOTE | 2017-06-08 10:53 | PCM.CONS.R ---
Problem List (1) End-stage renal disease on hemodialysis Status: Chronic Consultation - Renal PCP/ Referring MD: Requesting physician: [] Primary care physician: Lawrence Dozier - History of Present Illness History of Present Illness: The patient is a 57 year old F PMH of ESRD TTS presented with progressive SOB and cough. Patient was admitted with acute hypoxemic respiratory failure due to CHF/ pneumonia Patient was dialyzed last night with 2.4 L UF Patient could not tolerate higher UF due to cramps Feeling better today. On V Mask 50%. ROS; 10 systems review is negative except what mentioned in HPI[] - Allergies Allergies: Allergies No Known Allergies Allergy (Verified 02/22/17 12:48) - Current Medications Current Medications: Current Medications Acetaminophen (Tylenol) 650 mg PO BID PRN PRN Reason: PAIN Last Admin: 06/08/17 06:02 Dose: 650 mg Amlodipine Besylate (Norvasc) 10 mg PO DAILY [facility] Last Admin: 06/08/17 09:19 Dose: 10 mg Calcium Acetate (Phoslo Gel Cap) 1,334 mg PO TIDCM [facility] Last Admin: 06/07/17 17:47 Dose: 1,334 mg Docusate Sodium (Colace) 100 mg PO BID PRN PRN Reason: Constipation Ergocalciferol (Vitamin D) 50,000 unit PO TH KRISTOPHER Famotidine (Pepcid) 20 mg PO BID PRN PRN PRN Reason: ACID REFLUX Folic Acid (Folic Acid) 1 mg PO DAILY@0800 [facility] Last Admin: 06/08/17 09:19 Dose: 1 mg Heparin Sodium (Porcine) () 5,000 units SC BID [facility] Last Admin: 06/08/17 09:19 Dose: 5,000 units Piperacillin Sod/Tazobactam Sod (Zosyn) 3.375 gm in 50 mls @ 12.5 mls/hr IV Q8 [facility] Last Admin: 06/08/17 06:02 Dose: 12.5 mls/hr Sodium Chloride () 250 mls @ 15 mls/hr IV .[id number] PRN PRN Reason: SALINE FLUSH Lisinopril (Zestril) 20 mg PO BID [facility] Last Admin: 06/08/17 09:19 Dose: 20 mg Magnesium Hydroxide (Milk Of Magnesia) 30 ml PO DAILY PRN PRN Reason: Constipation Multivit/Ca Carb/B Cmplx/FA/Prenat (Nephrocaps, Renaphro) 1 capsule PO DAILY KRISTOPHER Nutritional Formula (Nepro Carb Steady) 120 ml PO 4X/DAY KRISTOPHER Ondansetron HCl (Zofran) 8 mg PO Q8H PRN PRN PRN Reason: NAUSEA Sodium Chloride () 5 - 30 ml IV UD PRN PRN Reason: SALINE FLUSH - Past Medical History Past Medical History (Chronic Problems): Chronic Problems Bacteremia (Chronic) 02/22/16 Bld Cx preliminary Gram positive keyla Endometrial cancer (Chronic) Status post hysterectomy, cystectomy and partial colectomy due to metastatic disease End-stage renal disease on hemodialysis (Chronic) History of hysterectomy for cancer (Chronic) History of nephrectomy (Chronic) Anemia of chronic renal failure, stage 5 (Chronic) Anemia of chronic renal failure (Chronic) Hypertension (Chronic) Obesity (BMI 30-39.9) (Chronic) History of colostomy (Chronic) History of ileal conduit (Chronic) - Past Surgical History Surgical History: hysterectomy - for cervical cancer, - - Left nephrectomy for cancer with rt ileoconduit, Colostomy, Hysterectomy with BL RAHEEL, AVF RUE. - Social History Smoking Status: Former smoker - Family History Paternal History Items: No pertinent history Maternal History Items: No pertinent history - Physical Exam General: Alert, Oriented x3 HEENT: Atraumatic Oral: Moist Mucosa Neck: Supple, No JVD Lungs: - - B/L crackles Cardiovascular: Regular rate, Regular Rhythm, Normal S1, Normal S2 Abdomen: Bowel Sounds Present, Soft, Non Tender Extremities: No clubbing, No cyanosis, No edema Musculoskeletal: No Tenderness to Palpation of Joints or Extremities Lymphatic: No Cervical, Supraclavicular, or Inguinal Adenopathy Neurological: Cranial nerves II-XII grossly intact, Neuro grossly intact Psych/Mental Status: Normal Affect - H Comment: HD access RUE AVF + T and B Vital Signs Temp Pulse Resp BP Pulse Ox 97.5 F L 95 34 H 116/51 L 95 06/08/17 09:00 06/08/17 09:00 06/08/17 09:00 06/08/17 09:00 06/08/17 10:52 Oxygen Flow Rate (L/min) 6 Oxygen Delivery Method Venturi Mask Weight: 83.36 kg Body Mass Index (BMI) 34.5 Intake and Output for Last 24 Hours 06/06/17 06/07/17 06/08/17 23:59 23:59 23:59 Output Total 2456 / 2456 Balance -2456 / -2456 Laboratory Tests Past 24 Hrs 06/08/17 06/08/17 06:20 06:20 WBC 10.7 RBC 3.14 L Hgb 9.2 L Hct 29.9 L MCV 95.2 MCH 29.3 MCHC 30.8 L RDW 19.0 H RDW Differential 65.7 H Plt Count 278 MPV 8.9 Differential Comment SCANNED Sodium 137 Potassium 4.1 Chloride 100 Carbon Dioxide 27.0 Anion Gap 10 BUN 18 Creatinine 4.28 H Estim Creat Clear Calc 11.75 Est GFR (MDRD) Af Amer 14 L Est GFR (MDRD) Non-Af 11 L BUN/Creatinine Ratio 4.2 L Glucose 110 H Calcium 8.1 L Assessment/Plan 1- ESRD on TTS Last HD session 06/07 with 2.4 L UF Next HD 06/09 If respiratory status worsens , please call me for extra session. As per now I don;t see indication for HD 2- Acute hypoxemic RF due to CHF/Pneumonia Keep O>I with HD and UF continue Abx Continue 02 support as per the primary service to keep S02 > 92% Will continue to follow Elena Morales MD
--- NOTE | 2017-06-08 11:00 | CON.PCM_ITS ---
Problem List (1) End-stage renal disease on hemodialysis Status: Chronic Consultation - Renal PCP/ Referring MD: Requesting physician: [] Primary care physician: Lawrence Dozier - History of Present Illness History of Present Illness: The patient is a 57 year old F PMH of ESRD TTS presented with progressive SOB and cough. Patient was admitted with acute hypoxemic respiratory failure due to CHF/ pneumonia Patient was dialyzed last night with 2.4 L UF Patient could not tolerate higher UF due to cramps Feeling better today. On V Mask 50%. ROS; 10 systems review is negative except what mentioned in HPI[] - Allergies Allergies: Allergies No Known Allergies Allergy (Verified 02/22/17 12:48) - Current Medications Current Medications: Current Medications Acetaminophen (Tylenol) 650 mg PO BID PRN PRN Reason: PAIN Last Admin: 06/08/17 06:02 Dose: 650 mg Amlodipine Besylate (Norvasc) 10 mg PO DAILY [facility] Last Admin: 06/08/17 09:19 Dose: 10 mg Calcium Acetate (Phoslo Gel Cap) 1,334 mg PO TIDCM [facility] Last Admin: 06/07/17 17:47 Dose: 1,334 mg Docusate Sodium (Colace) 100 mg PO BID PRN PRN Reason: Constipation Ergocalciferol (Vitamin D) 50,000 unit PO TH KRISTOPHER Famotidine (Pepcid) 20 mg PO BID PRN PRN PRN Reason: ACID REFLUX Folic Acid (Folic Acid) 1 mg PO DAILY@0800 [facility] Last Admin: 06/08/17 09:19 Dose: 1 mg Heparin Sodium (Porcine) () 5,000 units SC BID [facility] Last Admin: 06/08/17 09:19 Dose: 5,000 units Piperacillin Sod/Tazobactam Sod (Zosyn) 3.375 gm in 50 mls @ 12.5 mls/hr IV Q8 [facility] Last Admin: 06/08/17 06:02 Dose: 12.5 mls/hr Sodium Chloride () 250 mls @ 15 mls/hr IV .[id number] PRN PRN Reason: SALINE FLUSH Lisinopril (Zestril) 20 mg PO BID [facility] Last Admin: 06/08/17 09:19 Dose: 20 mg Magnesium Hydroxide (Milk Of Magnesia) 30 ml PO DAILY PRN PRN Reason: Constipation Multivit/Ca Carb/B Cmplx/FA/Prenat (Nephrocaps, Renaphro) 1 capsule PO DAILY KRISTOPHER Nutritional Formula (Nepro Carb Steady) 120 ml PO 4X/DAY KRISTOPHER Ondansetron HCl (Zofran) 8 mg PO Q8H PRN PRN PRN Reason: NAUSEA Sodium Chloride () 5 - 30 ml IV UD PRN PRN Reason: SALINE FLUSH - Past Medical History Past Medical History (Chronic Problems): Chronic Problems Bacteremia (Chronic) 02/22/16 Bld Cx preliminary Gram positive keyla Endometrial cancer (Chronic) Status post hysterectomy, cystectomy and partial colectomy due to metastatic disease End-stage renal disease on hemodialysis (Chronic) History of hysterectomy for cancer (Chronic) History of nephrectomy (Chronic) Anemia of chronic renal failure, stage 5 (Chronic) Anemia of chronic renal failure (Chronic) Hypertension (Chronic) Obesity (BMI 30-39.9) (Chronic) History of colostomy (Chronic) History of ileal conduit (Chronic) - Past Surgical History Surgical History: hysterectomy - for cervical cancer, - - Left nephrectomy for cancer with rt ileoconduit, Colostomy, Hysterectomy with BL RAHEEL, AVF RUE. - Social History Smoking Status: Former smoker - Family History Paternal History Items: No pertinent history Maternal History Items: No pertinent history - Physical Exam General: Alert, Oriented x3 HEENT: Atraumatic Oral: Moist Mucosa Neck: Supple, No JVD Lungs: - - B/L crackles Cardiovascular: Regular rate, Regular Rhythm, Normal S1, Normal S2 Abdomen: Bowel Sounds Present, Soft, Non Tender Extremities: No clubbing, No cyanosis, No edema Musculoskeletal: No Tenderness to Palpation of Joints or Extremities Lymphatic: No Cervical, Supraclavicular, or Inguinal Adenopathy Neurological: Cranial nerves II-XII grossly intact, Neuro grossly intact Psych/Mental Status: Normal Affect - H Comment: HD access RUE AVF + T and B Vital Signs Temp Pulse Resp BP Pulse Ox 97.5 F L 95 34 H 116/51 L 95 06/08/17 09:00 06/08/17 09:00 06/08/17 09:00 06/08/17 09:00 06/08/17 10:52 Oxygen Flow Rate (L/min) 6 Oxygen Delivery Method Venturi Mask Weight: 83.36 kg Body Mass Index (BMI) 34.5 Intake and Output for Last 24 Hours 06/06/17 06/07/17 06/08/17 23:59 23:59 23:59 Output Total 2456 / 2456 Balance -2456 / -2456 Laboratory Tests Past 24 Hrs 06/08/17 06/08/17 06:20 06:20 WBC 10.7 RBC 3.14 L Hgb 9.2 L Hct 29.9 L MCV 95.2 MCH 29.3 MCHC 30.8 L RDW 19.0 H RDW Differential 65.7 H Plt Count 278 MPV 8.9 Differential Comment SCANNED Sodium 137 Potassium 4.1 Chloride 100 Carbon Dioxide 27.0 Anion Gap 10 BUN 18 Creatinine 4.28 H Estim Creat Clear Calc 11.75 Est GFR (MDRD) Af Amer 14 L Est GFR (MDRD) Non-Af 11 L BUN/Creatinine Ratio 4.2 L Glucose 110 H Calcium 8.1 L Assessment/Plan 1- ESRD on TTS Last HD session 06/07 with 2.4 L UF Next HD 06/09 If respiratory status worsens , please call me for extra session. As per now I don;t see indication for HD 2- Acute hypoxemic RF due to CHF/Pneumonia Keep O>I with HD and UF continue Abx Continue 02 support as per the primary service to keep S02 > 92% Will continue to follow Elena Morales MD
[2017-06-08] MEDS: Calcium Acetate 667 MG Capsule 1334 MG PO ×2 (11:55→17:01)
[2017-06-08] MEDS: Folic Acid/Vitamin B Comp W-C 1 Capsule 1 CAP PO (11:55)
--- NOTE | 2017-06-08 13:02 | CASEMGMT ---
Face to Face with patient for initial transition planning/care coordination assessment. GERTRUDIS LAGOS introduced self and role at [facility], pt voices understanding and consents to assessment at this time. Pt is sitting up in bed on bipap at this time, in no distress. Pt is A/O x4 at this time and answers all questions appropriately. Care providers, pharmacy, and demographics verified. See attached link. Pt voices no further concerns/needs at this time. Advised pt to ask for CM if any further questions/concerns/needs arise, voices understanding. CM to follow for any further needs. Green sheet and home oxygen instructions placed on chart for home oxygen if pt qualifies. PLAN: [place] GERTRUDIS LAGOS
--- NOTE | 2017-06-08 14:52 | PCM.PROGNOTE ---
<Omer Pierre - Last Filed: 06/08/17 14:52> Patient Problems: Active and Suspected Problems HCAP (healthcare-associated pneumonia) (Acute) Subjective: Pt is mildly improved however still on Venti mask and did require bipap overnight. She does not normall use O2 or CPAP/BiPAP at home. She does not have fevers or chills. She is dyspneic. She has a dry intermittent cough. She did miss her last dialysis session and has some swelling of her LE. She did receive dialysis here last night. - Physical Exam General: Alert, Oriented x3, Cooperative HEENT: Atraumatic, PERRLA, EOMI, Normocephalic Neck: Supple, No JVD, Negative Carotid Bruits Lungs: Clear to auscultation, Normal air movement Cardiovascular: Regular rate, No murmurs Abdomen: Bowel Sounds Present, Soft, Non Tender Extremities: No edema, Capillary Refill Less than 3 Seconds, Edema - 1-2 + pitting edema. Skin: No rashes, No breakdown Musculoskeletal: No Tenderness to Palpation of Joints or Extremities Neurological: Cranial nerves II-XII grossly intact Psych/Mental Status: Normal Affect, Appropriate, Alert and oriented to time, place, person, mood and affect Vital Signs Temp Pulse Resp BP Pulse Ox 98.0 F 105 H 25 H 127/59 H 100 06/08/17 13:00 06/08/17 13:00 06/08/17 13:00 06/08/17 13:00 06/08/17 13:00 Oxygen Flow Rate (L/min) 6 Oxygen Delivery Method Bi-pap Weight: 83.36 kg Body Mass Index (BMI) 34.5 Intake and Output for Last 24 Hours 06/06/17 06/07/17 06/08/17 23:59 23:59 23:59 Intake Total 578 / 578 Output Total 2456 / 2456 Balance -1878 / -1878 Laboratory Tests Past 24 Hrs 06/08/17 06/08/17 06:20 06:20 WBC 10.7 RBC 3.14 L Hgb 9.2 L Hct 29.9 L MCV 95.2 MCH 29.3 MCHC 30.8 L RDW 19.0 H RDW Differential 65.7 H Plt Count 278 MPV 8.9 Differential Comment SCANNED Sodium 137 Potassium 4.1 Chloride 100 Carbon Dioxide 27.0 Anion Gap 10 BUN 18 Creatinine 4.28 H Estim Creat Clear Calc 11.75 Est GFR (MDRD) Af Amer 14 L Est GFR (MDRD) Non-Af 11 L BUN/Creatinine Ratio 4.2 L Glucose 110 H Calcium 8.1 L Medical Necessity - Tobacco Use Smoking Status: Former smoker Assessment/Plan Active and Suspected Problems HCAP (healthcare-associated pneumonia) (Acute) 1. Acute hypoxic respiratory failure 2/2 CHF/HCAP - less likely pna, more likely CHF. She has no fever or leukocytosis. CXR shows diffuse infiltrates more likely from CHF/pulmonary edema. Regardless, will continue IV abx for now with Zosyn. Check urine ag's. Continue dialysis for fluid removal. Dialysis last night, next is planned for tomorrow. Continue O2 as needed, aerosols, incentive spirometry. Will obtain repeat CXR tomorrow AM for clearing. Add fluid restriction. Will obtain Echo as we do not have one on file. Follow final cultures. Had pneumococcal pna earlier this year. Trop neg. 2. ESRD - Dr. Morales following. Dialysis per him. On phoslo, nepro. 3. Lung CA - currently on Chemo. Pt of Dr. Arteaga. 4. Hx Colon CA - s/p colostomy and ileal conduit. No abdominal complaints 5. Hx Metastatic Cervical CA s/p radiation 6. HTN - stable 7. Chronic normocytic anemia likely 2/2 ESRD - at baseline. DVT ppx: heparin DC planning: PTOT. Complaining of weakness at home. This patient was seen by Omer Pierre PA-C under the supervision of Doctor Tadeo. <Nicolas Piedra - Last Filed: 06/08/17 15:33> - Physical Exam General: Alert, Cooperative HEENT: Atraumatic, Normocephalic Lungs: Diminished, - - coarse BS bilaterally. Cardiovascular: Regular rate, Regular Rhythm, Normal S1, Normal S2, No murmurs Abdomen: Bowel Sounds Present, Soft, Non Tender, Non-Distended Extremities: No Calf Tenderness, Edema Skin: No rashes, No breakdown Psych/Mental Status: Normal Affect, Appropriate Vital Signs Temp Pulse Resp BP Pulse Ox 36.3 C L 90 20 H 113/58 L 98 06/08/17 15:01 06/08/17 15:11 06/08/17 15:01 06/08/17 15:01 06/08/17 15:01 Oxygen Flow Rate (L/min) 6 Oxygen Delivery Method Bi-pap Weight: 83.36 kg Body Mass Index (BMI) 34.5 Intake and Output for Last 24 Hours 06/06/17 06/07/17 06/08/17 23:59 23:59 23:59 Intake Total 578 / 578 Output Total 2456 / 2456 Balance -1878 / -1878 Laboratory Tests Past 24 Hrs 06/08/17 06/08/17 06:20 06:20 WBC 10.7 RBC 3.14 L Hgb 9.2 L Hct 29.9 L MCV 95.2 MCH 29.3 MCHC 30.8 L RDW 19.0 H RDW Differential 65.7 H Plt Count 278 MPV 8.9 Differential Comment SCANNED Sodium 137 Potassium 4.1 Chloride 100 Carbon Dioxide 27.0 Anion Gap 10 BUN 18 Creatinine 4.28 H Estim Creat Clear Calc 11.75 Est GFR (MDRD) Af Amer 14 L Est GFR (MDRD) Non-Af 11 L BUN/Creatinine Ratio 4.2 L Glucose 110 H Calcium 8.1 L Assessment/Plan Pt seen and examined independently. I agree with the above note by the PA. 1. Acute hypoxic resp failure: 2/2 CHF + PNA. Subjectively improved today. 2. CHF: no echo in our system available. Due to ESRD. Improved with HD 3. Suspected gram negative pneumonia: on Zosyn. follow up cultures 4. ESRD: on HD. Nephrology mgmt appreciated. Code Visit Inpatient E&M: 80066 Subs Hosp L2
--- NOTE | 2017-06-08 15:00 | ECHOD_ITS ---
Reason For Study: CHF Procedure This was a 2D Doppler, Color Flow transthoracic echocardiogram. The exam was of fair technical quality due to diminished acoustic windows. The study was technically difficult. Exam performed portable in patient room. Left Ventricle Normal LV size. Left ventricular systolic function is normal. The estimated ejection fraction is 55 %. Transmitral doppler flow suggestive of impaired relaxation of left ventricle. No regional wall motion abnormalities noted. Right Ventricle Normal RV size. Normal systolic function. Atria Normal left atrium. Normal right atrium. No doppler evidence for ASD. Mitral Valve There is moderate to severe mitral annular calcification. Extension of the mitral annular calcification onto the posterior mitral valve. Trivial mitral valve insufficiency. Tricuspid Valve Normal tricuspid valve. Mild eccentric tricuspid valve insufficiency. Unable to estimate RV systolic pressure/pulmonary artery pressure due to technically difficult study. Aortic Valve Trisinus/trileaflet aortic valve. Mild diffuse aortic valve thickening. Pulmonic Valve The pulmonic valve is not well visualized. Great Vessels Normal sized aortic root. Pericardium/Pleural No pericardial effusion. MMode/2D Measurements & Calculations LVIDd: 4.7 cm IVSd: 1.0 cm LVOT diam: 1.9 cm LVIDs: 3.2 cm LVPWd: 0.95 cm LVOT area: 2.8 cm2 RVDd: 3.5 cm FS: 32.1 % Ao root diam: 2.7 cm LAV(MOD-bp): 59.2 ml LA A4 area: 20.8 cm2 LA dimension: 2.7 cm LAV(MOD-bp) Indexed: 32.2 ml/m2 LAV(MOD-sp2): 53.4 ml LAV(MOD-sp4): 55.8 ml RA A4 area: 20.2 cm2 Doppler Measurements & Calculations MV E max darren: 133.8 cm/sec Lat Peak E' Darren: 9.6 cm/sec Med Peak E' Darren: 5.8 cm/sec MV A max darren: 152.2 cm/sec E/E' lat: 13.9 E/E' med: 23.0 MV E/A: 0.88 MV V2 max: 162.1 cm/sec MV P1/2t max darren: 142.4 cm/sec Ao V2 max: 221.2 cm/sec MV max P.5 mmHg MV P1/2t: 66.6 msec Ao max P.6 mmHg MV V2 mean: 117.4 cm/sec MV dec slope: 625.8 cm/sec2 Ao V2 mean: 150.4 cm/sec MV mean P.9 mmHg MVA(P1/2t): 3.3 cm2 Ao mean P.2 mmHg MV V2 VTI: 34.5 cm Ao V2 VTI: 40.2 cm MVA(VTI): 2.3 cm2 ROBERT(I,D): 1.9 cm2 ROBERT(V,D): 1.8 cm2 LV V1 max: 144.3 cm/sec SV(LVOT): 78.2 ml PA V2 max: 122.9 cm/sec LV V1 max P.3 mmHg LV V1 mean P.4 mmHg LV V1 mean: 99.5 cm/sec LV V1 VTI: 27.8 cm Interpretation Summary The study was technically difficult. Left ventricular systolic function is normal. The estimated ejection fraction is 55 %. There is moderate to severe mitral annular calcification. Extension of the mitral annular calcification onto the posterior mitral valve. Trivial mitral valve insufficiency. Mild eccentric tricuspid valve insufficiency. Mild diffuse aortic valve thickening. Transmitral doppler flow suggestive of impaired relaxation of left ventricle Ordering Physician: Omer Pierre Referring Physician: Lawrence Dozier Performed By: Karla Campuzano RDCS
[2017-06-09] VITALS (19 sets, daily range): BP systolic 106–141; BP diastolic 50–68; PULSE 81–114; RESP 14–22; TEMP 36.3–36.9; O2SAT 91–100
[2017-06-09] MEDS: Piperacil/Tazobactam 3.375 GM/50 ML ML IV ×3 (05:30→22:37)
[2017-06-09 06:19] LABS: Hemoglobin 8.1 g/dl (12.0-15.0); Mean Corp Hgb Conc 31.2 g/gl (32-36); Mean Corpuscular Hgb 29.7 pg (27.0-32.0); Mean Corpuscular Volume 95.2 fL (81-99); Mean Platelet Vol. 8.7 fl (6.2-12.0); Platelet Count 188 K/mm3 (150-450); RBC Distribution Width CV 18.9 % (11.6-14.6); RBC Distribution Width SD 66.2 fl (35.1-43.9); Red Blood Count 2.73 M/mm3 (4.2-5.4); White Blood Count 4.4 K/mm3 (4.4-11.0)
[2017-06-09 06:20] LABS: Scan Indicated on CBC? Y/N YES- FLAGS NOTED
--- NOTE | 2017-06-09 06:25 | RAD_ITS ---
STUDY: X-RAY CHEST REASON FOR EXAM: Female, 57 years old. Shortness of breath. TECHNIQUE: PA and lateral views of the chest. COMPARISON: June 07, 2017 FINDINGS: There is progressive bilateral perihilar alveolar infiltrates when compared to the prior study. Question right pleural effusion. The heart remains enlarged. Normal mediastinum. The nacho and pulmonary arteries are obscured by the infiltrates. Normal visualized aortic arch and descending thoracic aorta. No visualized osseous changes. There is no demonstrated abnormality of the visualized soft tissue structures of the upper abdomen. RAD/Chest PA and Lateral IMPRESSION: Worsening bilateral perihilar infiltrates with small right pleural effusion. Electronically Signed: Dionicio Arizmendi DO at 12:20 EDT Tel [phone], Service support ,
[2017-06-09 06:57] LABS: Anion Gap 8 (5-15); BUN 32 mg/dL (7-18); BUN/Creat Ratio 4.9 RATIO (10-20); Calcium,Total 8.8 mg/dL (8.5-10.1); Chloride 101 mmol/L (98-107); Creatinine, Serum 6.58 mg/dL (0.55-1.02); EST Glomerular Filtration Rate 7 mL/min (>60); Est Glom Filt Rate - Afr Amer 8 mL/min (>60); Estimated Creatinine Clearance 7.64 ml/min; Glucose 91 mg/dL (74-106); Potassium 4.3 mmol/L (3.5-5.1); Sodium Level 139 mmol/L (136-145)
[2017-06-09] MEDS: Calcium Acetate 667 MG Capsule 1334 MG PO ×3 (10:19→18:08)
[2017-06-09] MEDS: Folic Acid/Vitamin B Comp W-C 1 Capsule 1 CAP PO (10:19)
[2017-06-09] MEDS: Folic Acid 1 MG Tablet PO (10:19)
[2017-06-09] MEDS: Heparin Injection 5,000 UNITS/ML Syringe 5000 UNITS SC ×2 (10:20→22:37)
--- NOTE | 2017-06-09 12:02 | PCM.PROGNOTE ---
Patient Problems: Active and Suspected Problems HCAP (healthcare-associated pneumonia) (Acute) Subjective: Patient still short of breath however has improved from yesterday. She denies any cough at this time. No fevers or chills overnight. Currently undergoing dialysis. No swelling of her lower extremities. No chest pain. No dizziness or lightheadedness. She still requiring 4 L of oxygen to maintain good sats. She does not use oxygen at home. Still reports feeling very weak. - Physical Exam General: Alert, Oriented x3, Cooperative HEENT: Atraumatic, PERRLA, EOMI, Normocephalic Neck: Supple, No JVD, Negative Carotid Bruits Lungs: Diminished, Rales - Bilateral bases Cardiovascular: Regular rate, No murmurs Abdomen: Bowel Sounds Present, Soft, Non Tender Extremities: No edema, Capillary Refill Less than 3 Seconds Skin: No rashes, No breakdown Musculoskeletal: No Tenderness to Palpation of Joints or Extremities Neurological: Cranial nerves II-XII grossly intact Psych/Mental Status: Normal Affect, Appropriate, Alert and oriented to time, place, person, mood and affect Vital Signs Temp Pulse Resp BP Pulse Ox 97.4 F L 100 17 141/68 H 91 06/09/17 10:25 06/09/17 10:25 06/09/17 10:25 06/09/17 10:25 06/09/17 10:25 Oxygen Flow Rate (L/min) 4 Oxygen Delivery Method Nasal Cannula Weight: 84 kg Body Mass Index (BMI) 34.5 Intake and Output for Last 24 Hours 06/07/17 06/08/17 06/09/17 23:59 23:59 23:59 Intake Total 578 / 578 256 / 256 Output Total 2456 / 2456 400 / 400 Balance -1878 / -1878 -144 / -144 Laboratory Tests Past 24 Hrs 06/09/17 06/09/17 05:25 05:25 WBC 4.4 RBC 2.73 L Hgb 8.1 L Hct 26.0 L MCV 95.2 MCH 29.7 MCHC 31.2 L RDW 18.9 H RDW Differential 66.2 H Plt Count 188 MPV 8.7 Differential Comment Sodium 139 Potassium 4.3 Chloride 101 Carbon Dioxide 30.0 Anion Gap 8 BUN 32 H Creatinine 6.58 H Estim Creat Clear Calc 7.64 Est GFR (MDRD) Af Amer 8 L Est GFR (MDRD) Non-Af 7 L BUN/Creatinine Ratio 4.9 L Glucose 91 Calcium 8.8 Medical Necessity - Tobacco Use Smoking Status: Former smoker Assessment/Plan Active and Suspected Problems HCAP (healthcare-associated pneumonia) (Acute) 1. Acute hypoxic respiratory failure 2/2 CHF/HCAP -continue Zosyn. Still requiring high amounts of o2. Continue dialysis for fluid removal. Patient still requiring significant amounts of oxygen. Continue aerosols, oxygen, Mucinex, incentive spirometry. Blood cultures pending. Bipap at night. Echo pending. Afebrile/no leukocytosis. Repeat CXR pending. 2. ESRD - Dr. Morales following. Dialysis per him. On phoslo, nepro. 3. Lung CA - currently on Chemo. Pt of Dr. Arteaga. 4. Hx Colon CA - s/p colostomy and ileal conduit. No abdominal complaints 5. Hx Metastatic Cervical CA s/p radiation 6. HTN - stable 7. Chronic normocytic anemia likely 2/2 ESRD - at baseline. DVT ppx: heparin DC planning: PTOT. May need home O2 - did not use prior. This patient was seen by Omer Pierre PA-C under the supervision of Doctor Piedra.
[2017-06-09] MEDS: Ipratropium/Albuterol Sulfate 3 ML AMPUL.NEB INHALATION ×2 (13:19→19:18)
[2017-06-09] MEDS: amLODIPine 10 MG Tablet PO (14:23)
[2017-06-09] MEDS: Lisinopril 20 MG Tablet PO ×2 (14:24→22:37)
--- NOTE | 2017-06-09 15:15 | PCM.PN.REN ---
Patient Problems: Active and Suspected Problems HCAP (healthcare-associated pneumonia) (Acute) Objective: Patient was seen today during HD session She is tolerating the session well Breathing is better but still SOB On NC at 4.5 l/m - Physical Exam General: Alert, Oriented x3 HEENT: Atraumatic Oral: Moist Mucosa Neck: Supple, No JVD Lungs: Diminished Cardiovascular: Regular rate, Regular Rhythm, Normal S1, Normal S2 Abdomen: Bowel Sounds Present, Soft, Non Tender, Non-Distended Extremities: No clubbing, No cyanosis, No edema Skin: No rashes Musculoskeletal: No Tenderness to Palpation of Joints or Extremities Lymphatic: No Cervical, Supraclavicular, or Inguinal Adenopathy Neurological: Cranial nerves II-XII grossly intact, Neuro grossly intact Psych/Mental Status: Normal Affect Vital Signs Temp Pulse Resp BP Pulse Ox 98.3 F 100 22 H 126/65 H 94 06/09/17 12:26 06/09/17 14:16 06/09/17 13:19 06/09/17 12:26 06/09/17 12:26 Oxygen Flow Rate (L/min) 4 Oxygen Delivery Method Nasal Cannula Weight: 84 kg Body Mass Index (BMI) 34.5 Intake and Output for Last 24 Hours 06/07/17 06/08/17 06/09/17 23:59 23:59 23:59 Intake Total 578 / 578 673.7 / 673.7 Output Total 2456 / 2456 3100 / 3100 Balance -1878 / -1878 -2426.3 / -2426.3 Laboratory Tests Past 24 Hrs 06/09/17 06/09/17 05:25 05:25 WBC 4.4 RBC 2.73 L Hgb 8.1 L Hct 26.0 L MCV 95.2 MCH 29.7 MCHC 31.2 L RDW 18.9 H RDW Differential 66.2 H Plt Count 188 MPV 8.7 Differential Comment Sodium 139 Potassium 4.3 Chloride 101 Carbon Dioxide 30.0 Anion Gap 8 BUN 32 H Creatinine 6.58 H Estim Creat Clear Calc 7.64 Est GFR (MDRD) Af Amer 8 L Est GFR (MDRD) Non-Af 7 L BUN/Creatinine Ratio 4.9 L Glucose 91 Calcium 8.8 Medical Necessity - Tobacco Use Smoking Status: Former smoker Assessment/Plan Active and Suspected Problems HCAP (healthcare-associated pneumonia) (Acute) 1- ESRD on TTS HD session today : BQ 400 DQ 600 UF L as tolerated Next HD 06/12 URR goal > 70% 2- Acute hypoxemic RF due to CHF/Pneumonia Keep O>I with HD and UF continue Abx Continue 02 support as per the primary service to keep S02 > 92% Will continue to follow Elena Morales MD
[2017-06-09] MEDS: Acetaminophen 325 MG Tablet 650 MG PO ×2 (16:39→22:37)
[2017-06-09] MEDS: guaiFENesin 1,200 MG Tablet 1200 MG PO (22:37)
[2017-06-10] VITALS (16 sets, daily range): BP systolic 114–131; BP diastolic 45–64; PULSE 82–113; RESP 12–18; TEMP 36.4–37.1; O2SAT 90–100
[2017-06-10] MEDS: Piperacil/Tazobactam 3.375 GM/50 ML ML IV (05:24)
[2017-06-10 07:01] LABS: Hematocrit 25.3 % (37-47); Hemoglobin 7.7 g/dl (12.0-15.0); Mean Corp Hgb Conc 30.4 g/gl (32-36); Mean Corpuscular Hgb 29.5 pg (27.0-32.0); Mean Corpuscular Volume 96.9 fL (81-99); Mean Platelet Vol. 9.5 fl (6.2-12.0); Platelet Count 220 K/mm3 (150-450); RBC Distribution Width CV 18.5 % (11.6-14.6); RBC Distribution Width SD 62.3 fl (35.1-43.9); Red Blood Count 2.61 M/mm3 (4.2-5.4); White Blood Count 4.4 K/mm3 (4.4-11.0)
[2017-06-10] MEDS: Ipratropium/Albuterol Sulfate 3 ML AMPUL.NEB INHALATION ×3 (07:04→18:41)
[2017-06-10 07:12] LABS: Scan Indicated on CBC? Y/N NO
[2017-06-10 07:29] LABS: Anion Gap 7 (5-15); BUN 20 mg/dL (7-18); BUN/Creat Ratio 4.3 RATIO (10-20); Calcium,Total 8.8 mg/dL (8.5-10.1); Chloride 101 mmol/L (98-107); Creatinine, Serum 4.63 mg/dL (0.55-1.02); EST Glomerular Filtration Rate 10 mL/min (>60); Est Glom Filt Rate - Afr Amer 13 mL/min (>60); Estimated Creatinine Clearance 10.86 ml/min; Glucose 93 mg/dL (74-106); Potassium 3.7 mmol/L (3.5-5.1); Sodium Level 139 mmol/L (136-145)
[2017-06-10] MEDS: Heparin Injection 5,000 UNITS/ML Syringe 5000 UNITS SC ×2 (10:01→21:42)
[2017-06-10] MEDS: Folic Acid/Vitamin B Comp W-C 1 Capsule 1 CAP PO (10:01)
[2017-06-10] MEDS: Calcium Acetate 667 MG Capsule 1334 MG PO ×3 (10:01→17:01)
[2017-06-10] MEDS: Lisinopril 20 MG Tablet PO ×2 (10:01→21:41)
[2017-06-10] MEDS: guaiFENesin 1,200 MG Tablet 1200 MG PO ×2 (10:01→21:42)
[2017-06-10] MEDS: Folic Acid 1 MG Tablet PO (10:01)
[2017-06-10] MEDS: amLODIPine 10 MG Tablet PO (10:01)
--- NOTE | 2017-06-10 12:12 | PCM.PROGNOTE ---
<Omer Pierre - Last Filed: 06/10/17 12:12> Subjective: Pt reports continued slow improvement of SOB. No cough at all this AM. No fever/chills. No nausea/vomiting. Some diarrhea in her colostomy - C diff was negative. She continues to complain primarily of being tired. Encouraged OOB/ambulation. - Physical Exam General: Alert, Oriented x3, Cooperative HEENT: Atraumatic, PERRLA, EOMI, Normocephalic Neck: Supple, No JVD, Negative Carotid Bruits Lungs: Clear to auscultation, Diminished Cardiovascular: Regular rate, No murmurs Abdomen: Bowel Sounds Present, Soft, Non Tender Extremities: No edema, Capillary Refill Less than 3 Seconds Skin: No rashes, No breakdown Musculoskeletal: No Tenderness to Palpation of Joints or Extremities Neurological: Cranial nerves II-XII grossly intact Psych/Mental Status: Normal Affect, Appropriate, Alert and oriented to time, place, person, mood and affect Vital Signs Temp Pulse Resp BP Pulse Ox 98.1 F 89 18 131/64 H 93 06/10/17 09:58 06/10/17 09:58 06/10/17 09:58 06/10/17 09:58 06/10/17 09:58 Oxygen Flow Rate (L/min) 2 Oxygen Delivery Method Nasal Cannula Weight: 81.9 kg Body Mass Index (BMI) 34.5 Intake and Output for Last 24 Hours 06/08/17 06/09/17 06/10/17 23:59 23:59 23:59 Intake Total 578 / 578 913.7 / 913.7 454.7 / 454.7 Output Total 2456 / 2456 3100 / 3100 0 / 0 Balance -1878 / -1878 -2186.3 / -2186.3 454.7 / 454.7 Microbiology Past 72 Hours 06/07/17 16:00 Blood Culture - Preliminary Blood Culture (Wb) - Other No growth in 48 hours. 06/09/17 19:35 C. difficile DNA Amplification - Final Stool Laboratory Tests Past 24 Hrs 06/10/17 06/10/17 06:03 06:03 WBC 4.4 RBC 2.61 L Hgb 7.7 L Hct 25.3 L MCV 96.9 MCH 29.5 MCHC 30.4 L RDW 18.5 H RDW Differential 62.3 H Plt Count 220 MPV 9.5 Sodium 139 Potassium 3.7 Chloride 101 Carbon Dioxide 31.0 Anion Gap 7 BUN 20 H Creatinine 4.63 H Estim Creat Clear Calc 10.86 Est GFR (MDRD) Af Amer 13 L Est GFR (MDRD) Non-Af 10 L BUN/Creatinine Ratio 4.3 L Glucose 93 Calcium 8.8 Medical Necessity - Tobacco Use Smoking Status: Former smoker Assessment/Plan 1. Acute hypoxic respiratory failure 2/2 CHF/HCAP -continue Zosyn. Continue gradual O2 weaning. Encouraged IS, OOB. No dialysis today Patient still requiring significant amounts of oxygen. Continue aerosols, oxygen, Mucinex, incentive spirometry. Blood cultures pending. Bipap at night. Echo pending. Afebrile/no leukocytosis. Repeat CXR shows worsening BL perihilar infiltrates and small right pleural effusion. Clinically, she looks and feels better however. 2. ESRD - Dr. Morales following. Dialysis per him. On phoslo, nepro. 3. Lung CA - currently on Chemo. Pt of Dr. Arteaga. 4. Hx Colon CA - s/p colostomy and ileal conduit. No abdominal complaints 5. Hx Metastatic Cervical CA s/p radiation 6. HTN - stable 7. Chronic normocytic anemia likely 2/2 ESRD - at baseline. Her primariy symptoms is being tired, which this is probably contributing significantly to. Will follow, no indication for transfusion at this time. 8. Diarrhea - C diff neg. Likely Abx associated. Start probiotic. DVT ppx: heparin DC planning: PTOT. May need home O2 - did not use prior. This patient was seen by Omer Pierre PA-C under the supervision of Doctor Piedra. <Nicolas Piedra - Last Filed: 06/10/17 13:07> Subjective: breathing better. - Physical Exam General: Alert, Cooperative, No apparent distress HEENT: Atraumatic, Normocephalic Neck: No Nodes, Thyroid Normal Size and Texture Lungs: Diminished, - - coarse breath sounds bilaterally. Cardiovascular: Regular rate, Regular Rhythm, Normal S1, Normal S2, No murmurs Abdomen: Bowel Sounds Present, Soft, Non Tender, Non-Distended Extremities: No edema, No Calf Tenderness Skin: No rashes, No breakdown Psych/Mental Status: Normal Affect, Appropriate Vital Signs Temp Pulse Resp BP Pulse Ox 36.7 C 89 18 131/64 H 93 06/10/17 09:58 06/10/17 09:58 06/10/17 09:58 06/10/17 09:58 06/10/17 09:58 Oxygen Flow Rate (L/min) 2 Oxygen Delivery Method Nasal Cannula Weight: 81.9 kg Body Mass Index (BMI) 34.5 Intake and Output for Last 24 Hours 06/08/17 06/09/17 06/10/17 23:59 23:59 23:59 Intake Total 578 / 578 913.7 / 913.7 454.7 / 454.7 Output Total 2456 / 2456 3100 / 3100 0 / 0 Balance -1878 / -1878 -2186.3 / -2186.3 454.7 / 454.7 Microbiology Past 72 Hours 06/07/17 16:00 Blood Culture - Preliminary Blood Culture (Wb) - Other No growth in 48 hours. 06/09/17 19:35 C. difficile DNA Amplification - Final Stool Laboratory Tests Past 24 Hrs 06/10/17 06/10/17 06:03 06:03 WBC 4.4 RBC 2.61 L Hgb 7.7 L Hct 25.3 L MCV 96.9 MCH 29.5 MCHC 30.4 L RDW 18.5 H RDW Differential 62.3 H Plt Count 220 MPV 9.5 Sodium 139 Potassium 3.7 Chloride 101 Carbon Dioxide 31.0 Anion Gap 7 BUN 20 H Creatinine 4.63 H Estim Creat Clear Calc 10.86 Est GFR (MDRD) Af Amer 13 L Est GFR (MDRD) Non-Af 10 L BUN/Creatinine Ratio 4.3 L Glucose 93 Calcium 8.8 Assessment/Plan Pt seen adn examined independently. I agree with the above note by the PA. 1. acute hypoxic respiratory failure: much improved. concern for CHF + pneumonia +/- ALI. CXR on 06/09 was slightly worse than on the . clinically improved from admission. I feel most of her resp issues is due to CHF. Her weight is down from 85 to 81kg. Patient's last weight we have in our system is from February and she was 89.1kg. since blood cultures are negative I am going to change her abx to oral and monitor. Change to cefdinir and augmentin. If pt does well, then she maybe able to be discharged on 05/11 and continue the abx through the . the pattern is concerning for ALI. If clinically worsens, then would reimage. Otherwise, repeat CXR in 4-6 weeks to eval for resolution. check ambulatory pulse ox prior to discharge 2. Suspected gram negative pneumonia: as above 3. acute HFpEF EF 55% this is primarily an issue d/t ESRD on HD improved clinically 4. ESRD: HD QTThSa renal following.
--- NOTE | 2017-06-10 12:17 | PN_ITS ---
<Omer Pierre - Last Filed: 06/10/17 12:12> Subjective: Pt reports continued slow improvement of SOB. No cough at all this AM. No fever/ chills. No nausea/vomiting. Some diarrhea in her colostomy - C diff was negative. She continues to complain primarily of being tired. Encouraged OOB/ ambulation. - Physical Exam General: Alert, Oriented x3, Cooperative HEENT: Atraumatic, PERRLA, EOMI, Normocephalic Neck: Supple, No JVD, Negative Carotid Bruits Lungs: Clear to auscultation, Diminished Cardiovascular: Regular rate, No murmurs Abdomen: Bowel Sounds Present, Soft, Non Tender Extremities: No edema, Capillary Refill Less than 3 Seconds Skin: No rashes, No breakdown Musculoskeletal: No Tenderness to Palpation of Joints or Extremities Neurological: Cranial nerves II-XII grossly intact Psych/Mental Status: Normal Affect, Appropriate, Alert and oriented to time, place, person, mood and affect Vital Signs Temp Pulse Resp BP Pulse Ox 98.1 F 89 18 131/64 H 93 06/10/17 09:58 06/10/17 09:58 06/10/17 09:58 06/10/17 09:58 06/10/17 09:58 Oxygen Flow Rate (L/min) 2 Oxygen Delivery Method Nasal Cannula Weight: 81.9 kg Body Mass Index (BMI) 34.5 Intake and Output for Last 24 Hours 06/08/17 06/09/17 06/10/17 23:59 23:59 23:59 Intake Total 578 / 578 913.7 / 913.7 454.7 / 454.7 Output Total 2456 / 2456 3100 / 3100 0 / 0 Balance -1878 / -1878 -2186.3 / -2186.3 454.7 / 454.7 Microbiology Past 72 Hours 06/07/17 16:00 Blood Culture - Preliminary Blood Culture (Wb) - Other No growth in 48 hours. 06/09/17 19:35 C. difficile DNA Amplification - Final Stool Laboratory Tests Past 24 Hrs 06/10/17 06/10/17 06:03 06:03 WBC 4.4 RBC 2.61 L Hgb 7.7 L Hct 25.3 L MCV 96.9 MCH 29.5 MCHC 30.4 L RDW 18.5 H RDW Differential 62.3 H Plt Count 220 MPV 9.5 Sodium 139 Potassium 3.7 Chloride 101 Carbon Dioxide 31.0 Anion Gap 7 BUN 20 H Creatinine 4.63 H Estim Creat Clear Calc 10.86 Est GFR (MDRD) Af Amer 13 L Est GFR (MDRD) Non-Af 10 L BUN/Creatinine Ratio 4.3 L Glucose 93 Calcium 8.8 Medical Necessity - Tobacco Use Smoking Status: Former smoker Assessment/Plan 1. Acute hypoxic respiratory failure 2/2 CHF/HCAP -continue Zosyn. Continue gradual O2 weaning. Encouraged IS, OOB. No dialysis today Patient still requiring significant amounts of oxygen. Continue aerosols, oxygen, Mucinex, incentive spirometry. Blood cultures pending. Bipap at night. Echo pending. Afebrile/no leukocytosis. Repeat CXR shows worsening BL perihilar infiltrates and small right pleural effusion. Clinically, she looks and feels better however. 2. ESRD - Dr. Morales following. Dialysis per him. On phoslo, nepro. 3. Lung CA - currently on Chemo. Pt of Dr. Arteaga. 4. Hx Colon CA - s/p colostomy and ileal conduit. No abdominal complaints 5. Hx Metastatic Cervical CA s/p radiation 6. HTN - stable 7. Chronic normocytic anemia likely 2/2 ESRD - at baseline. Her primariy symptoms is being tired, which this is probably contributing significantly to. Will follow, no indication for transfusion at this time. 8. Diarrhea - C diff neg. Likely Abx associated. Start probiotic. DVT ppx: heparin DC planning: PTOT. May need home O2 - did not use prior. This patient was seen by Omer Pierre PA-C under the supervision of Doctor Piedra. <Nicolas Piedra - Last Filed: 06/10/17 13:07> Subjective: breathing better. - Physical Exam General: Alert, Cooperative, No apparent distress HEENT: Atraumatic, Normocephalic Neck: No Nodes, Thyroid Normal Size and Texture Lungs: Diminished, - - coarse breath sounds bilaterally. Cardiovascular: Regular rate, Regular Rhythm, Normal S1, Normal S2, No murmurs Abdomen: Bowel Sounds Present, Soft, Non Tender, Non-Distended Extremities: No edema, No Calf Tenderness Skin: No rashes, No breakdown Psych/Mental Status: Normal Affect, Appropriate Vital Signs Temp Pulse Resp BP Pulse Ox 36.7 C 89 18 131/64 H 93 06/10/17 09:58 06/10/17 09:58 06/10/17 09:58 06/10/17 09:58 06/10/17 09:58 Oxygen Flow Rate (L/min) 2 Oxygen Delivery Method Nasal Cannula Weight: 81.9 kg Body Mass Index (BMI) 34.5 Intake and Output for Last 24 Hours 06/08/17 06/09/17 06/10/17 23:59 23:59 23:59 Intake Total 578 / 578 913.7 / 913.7 454.7 / 454.7 Output Total 2456 / 2456 3100 / 3100 0 / 0 Balance -1878 / -1878 -2186.3 / -2186.3 454.7 / 454.7 Microbiology Past 72 Hours 06/07/17 16:00 Blood Culture - Preliminary Blood Culture (Wb) - Other No growth in 48 hours. 06/09/17 19:35 C. difficile DNA Amplification - Final Stool Laboratory Tests Past 24 Hrs 06/10/17 06/10/17 06:03 06:03 WBC 4.4 RBC 2.61 L Hgb 7.7 L Hct 25.3 L MCV 96.9 MCH 29.5 MCHC 30.4 L RDW 18.5 H RDW Differential 62.3 H Plt Count 220 MPV 9.5 Sodium 139 Potassium 3.7 Chloride 101 Carbon Dioxide 31.0 Anion Gap 7 BUN 20 H Creatinine 4.63 H Estim Creat Clear Calc 10.86 Est GFR (MDRD) Af Amer 13 L Est GFR (MDRD) Non-Af 10 L BUN/Creatinine Ratio 4.3 L Glucose 93 Calcium 8.8 Assessment/Plan Pt seen adn examined independently. I agree with the above note by the PA. 1. acute hypoxic respiratory failure: * much improved. concern for CHF + pneumonia +/- ALI. * CXR on 06/09 was slightly worse than on the . * clinically improved from admission. I feel most of her resp issues is due to CHF. Her weight is down from 85 to 81kg. Patient's last weight we have in our system is from February and she was 89.1kg. * since blood cultures are negative I am going to change her abx to oral and monitor. Change to cefdinir and augmentin. If pt does well, then she maybe able to be discharged on 05/11 and continue the abx through the . * the pattern is concerning for ALI. If clinically worsens, then would reimage. Otherwise, repeat CXR in 4-6 weeks to eval for resolution. * check ambulatory pulse ox prior to discharge 2. Suspected gram negative pneumonia: * as above 3. acute HFpEF * EF 55% * this is primarily an issue d/t ESRD on HD * improved clinically 4. ESRD: * HD QTThSa * renal following.
[2017-06-10] MEDS: Amox/Clavulanate 875 MG Tablet PO (17:01)
[2017-06-10] MEDS: Doxycycline 100 MG CAPSULE PO (21:41)
[2017-06-10] MEDS: Acetaminophen 325 MG Tablet 650 MG PO (21:41)
[2017-06-11] VITALS (9 sets, daily range): BP systolic 110–132; BP diastolic 48–65; PULSE 80–100; RESP 16–24; TEMP 36.7; O2SAT 85–100
[2017-06-11 06:07] LABS: Anion Gap 9 (5-15); BUN 38 mg/dL (7-18); BUN/Creat Ratio 5.7 RATIO (10-20); Calcium,Total 8.6 mg/dL (8.5-10.1); Chloride 102 mmol/L (98-107); Creatinine, Serum 6.65 mg/dL (0.55-1.02); EST Glomerular Filtration Rate 7 mL/min (>60); Est Glom Filt Rate - Afr Amer 8 mL/min (>60); Estimated Creatinine Clearance 7.56 ml/min; Glucose 110 mg/dL (74-106); Potassium 3.9 mmol/L (3.5-5.1); Sodium Level 140 mmol/L (136-145)
[2017-06-11 06:24] LABS: Absolute Lymphocyte Count 0.55 X10^3/ul (0.83-4.51); Absolute Neutrophil Count 3.3 X10^3/uL (2.0-7.7); Basophil# 0.01 X10^3/uL; Basophil% 0.2 % (0-1); Eosinophil# 0.15 X10^3/uL; Eosinophils% 3.5 % (0-5); Hematocrit 25.3 % (37-47); Hemoglobin 7.7 g/dl (12.0-15.0); Lymphocyte # 0.55 X10^3/ul (4.0); Lymphocyte % 12.7 % (19-41); Mean Corp Hgb Conc 30.4 g/gl (32-36); Mean Corpuscular Hgb 29.6 pg (27.0-32.0); Mean Corpuscular Volume 97.3 fL (81-99); Mean Platelet Vol. 9.6 fl (6.2-12.0); Monocyte# 0.31 X10^3/uL; Monocyte% 7.2 % (0-10); Neutrophil # 3.27 X10^3/uL (2.7-7.7); Neutrophil % 75.7 % (47-70); Platelet Count 210 K/mm3 (150-450); RBC Distribution Width SD 60.7 fl (35.1-43.9); White Blood Count 4.3 K/mm3 (4.4-11.0)
[2017-06-11 06:42] LABS: Differential Indicated SCAN CRITERIA MET; POSITIVE COUNT NO; POSITIVE DIFFERENTIAL YES; POSITIVE MORPHOLOGY NO
[2017-06-11] MEDS: Ipratropium/Albuterol Sulfate 3 ML AMPUL.NEB INHALATION ×2 (06:55→13:03)
[2017-06-11 07:04] LABS: Differential Comment SCANNED; Microcytosis 2+
[2017-06-11] MEDS: Doxycycline 100 MG CAPSULE PO (09:38)
[2017-06-11] MEDS: Folic Acid 1 MG Tablet PO (09:38)
[2017-06-11] MEDS: Calcium Acetate 667 MG Capsule 1334 MG PO ×2 (09:38→11:59)
[2017-06-11] MEDS: Amox/Clavulanate 875 MG Tablet PO (09:38)
[2017-06-11] MEDS: guaiFENesin 1,200 MG Tablet 1200 MG PO (09:39)
[2017-06-11] MEDS: amLODIPine 10 MG Tablet PO (09:40)
[2017-06-11] MEDS: Folic Acid/Vitamin B Comp W-C 1 Capsule 1 CAP PO (09:40)
[2017-06-11] MEDS: Lisinopril 20 MG Tablet PO (09:40)
--- NOTE | 2017-06-11 10:19 | CASEMGMT ---
Per therapy notes, they are recommending that pt would benefit from further skilled therapy. This RN CM to room to update pt on therapy recommendations at this time, voices understanding. This RN CM asked pt about outpatient therapy vs HHC at this time and pt declines both at this time. Per Sneha CABA, pt did qualify for home oxygen at this time with a sat of 85% on RA at rest. Pt states that she would still like to go with [facility]. Referral faxed to [facility] once F2F obtained. This RN CM will call [facility] once referral faxed. Valeri RN CM
--- NOTE | 2017-06-11 11:39 | CASEMGMT ---
Per Shaunna NICOLE, he would also like pt to go home with nebulizer script completed, signed and faxed to [facility] with home oxygen referral at this time. Valeri CABA CM
--- NOTE | 2017-06-11 11:41 | PCM.DC ---
You will use the following diet at home:: Cardiac - <2 grams sodium per day Your food should be the consistency of: Regular Your liquids should be the consistency of: Regular/Thin Discharge Activity: Return to Normal Activity Allergies/Adverse Reactions: Allergies No Known Allergies Allergy (Verified 02/22/17 12:48) Medications to take at Discharge Calcium Acetate [Phoslo Gel Cap] 2 cap PO TID 07/23/14 Docusate Sodium [Colace] 100 mg PO BID PRN 07/23/14 Folic Acid 1 mg PO DAILY@0800 07/23/14 Amlodipine [Norvasc] 10 mg PO DAILY 02/14/15 Lisinopril [Zestril] 20 mg PO BID 02/14/15 Ergocalciferol [Vitamin D] 50,000 unit PO TH 03/02/16 Famotidine [Pepcid AC] 20 mg PO BID PRN 03/02/16 Acetaminophen [Tylenol] 650 mg PO BID PRN 02/16/17 B Complex W-C No.20/Folic Acid [Nephrocaps Softgel] 1 mg PO DAILY 06/07/17 Clobetasol Propionate/Emoll [Clobetasol Emollient 0.05% Crm] 15 gm TP BID PRN 06/07/17 Ondansetron [Zofran] 8 mg PO Q8H PRN PRN 06/07/17 Albuterol Aerosols [Ventolin Aerosols] 2.5 mg INHALATION Q2H PRN PRN #120 vial.neb. 06/11/17 Amox/Clavulanate Tablet [Augmentin Tablet] 875 mg PO BIDCM #5 tab 06/11/17 The following prescriptions were given: Albuterol Aerosols [Ventolin Aerosols] 2.5 mg INHALATION Q2H PRN PRN #120 vial.neb. PRN Reason: Sob &/Or Wheezing Amox/Clavulanate Tablet [Augmentin Tablet] 875 mg PO BIDCM #5 tab Primary Care Physician: Lawrence Dozier DO [Primary Care Provider] - Please follow up with your Primary Care Physician in: 1-2 weeks Please Follow Up With: Eric Arteaga DO When: 1-2 weeks Please Follow Up With: Elena Morales MD - Resume normal dialysis When: Tomorrow Proposed Discharge Date: 06/11/17
--- NOTE | 2017-06-11 12:52 | PCM.DC.SUM ---
Discharge Date and Diagnosis Date of Admission: 06/07/17 Date of Discharge: 06/11/17 - Primary Discharge Diagnosis Acute hypoxic respiratory failure 2/2 Acute on chronic diastolic CHF and Acute recurrent streptococcal pna ESRD Lung, Colon, Cervical CA HTN Chronic normocytic anemia 2/2 ESRD - Secondary Discharge Diagnosis Chronic Problems Bacteremia (Chronic) 02/22/16 Bld Cx preliminary Gram positive keyla Endometrial cancer (Chronic) Status post hysterectomy, cystectomy and partial colectomy due to metastatic disease End-stage renal disease on hemodialysis (Chronic) History of hysterectomy for cancer (Chronic) History of nephrectomy (Chronic) Anemia of chronic renal failure, stage 5 (Chronic) Anemia of chronic renal failure (Chronic) Hypertension (Chronic) Obesity (BMI 30-39.9) (Chronic) History of colostomy (Chronic) History of ileal conduit (Chronic) Hospital Course and Treatment Imaging Results: Echo: Interpretation Summary The study was technically difficult. Left ventricular systolic function is normal. The estimated ejection fraction is 55 %. There is moderate to severe mitral annular calcification. Extension of the mitral annular calcification onto the posterior mitral valve. Trivial mitral valve insufficiency. Mild eccentric tricuspid valve insufficiency. Mild diffuse aortic valve thickening. Transmitral doppler flow suggestive of impaired relaxation of left ventricle RAD/Chest 1 View (Portable) IMPRESSION: Diffuse bilateral infiltrates. Radiographic follow-up is recommended. Blunting of the right costophrenic angle. RAD/Chest PA and Lateral IMPRESSION: Worsening bilateral perihilar infiltrates with small right pleural effusion. Consultations: Andrew - nephrology 06/09/17 17:47 Consult: Onc/Wound/lubricating specialist Routine Comment: Reason for Consult:: colostomy, ileostomy Operations: None Summary of Care Provided: Physical exam on day of discharge: General: Resting comfortably NAD Psych: A/Ox3 normal affect HEENT: PEARRLA AT NC Neck: Supple NT CV: RRR no m/t/r/g/h Resp: CTA Abd: [id number] Soft NT no guarding or rigidity Ext: DP2+= no edema Skin: W/D normal turgor Lymph/Heme: No active bleeding or adenopathy Neuro: CN2-12 intact Hospital course: The patient is a 57 year old F with a history of lung, cervical, colon cancer patient of Dr. Arteaga undergoing chemotherapy, end-stage renal disease, hypertension, who presented to the emergency room with chief complaint of shortness of breath cough. She recently had pneumococcal pneumonia and bacteremia with his Rhizobium radiobacter and influenza a in February of this year, treated by infectious disease with Lawrence. She had missed her dialysis session prior to presentation to the hospital. She stated she was too sick. She had an x-ray that showed them demonstrated bilateral pulmonary infiltrates and pulmonary edema. She is admitted to the hospital started on Rocephin and azithromycin for possible underlying pneumonia. These were escalated as she had recent pneumonia and his renal compromise secondary to her cancer is placed on Zosyn. She underwent dialysis that day and had significant improvement in her chest x-ray and and her shortness of breath. Echocardiogram demonstrated preserved ejection fraction of 55%. She did have initial high increased oxygen demand 4 L during the day and BiPAP at night. She is able to be weaned down to 2 L of oxygen at rest. Her blood cultures were negative. She did have a positive strep urinary antigen so her pneumonia was felt to be pneumococcal. She was transitioned to oral Augmentin at a dose appropriate for end-stage renal disease. She was unable to be completely weaned down off of oxygen and requires ongoing oxygen at discharge. She did have some weakness and debility however she declined home health care at this time. She was discharged home in stable condition and will need to follow-up with Dr. Arteaga as well as with her primary care provider. This patient was seen by Omer Pierre PA-C under the supervision of Doctor Katherine. [] Discharge Diet: Low fat/ Low Cholesterol, 2000 mg Sodium Diet Discharge Activity: Return to Normal Activity Home Medications: Medications to take at Discharge Calcium Acetate [Phoslo Gel Cap] 2 cap PO TID 07/23/14 Docusate Sodium [Colace] 100 mg PO BID PRN 07/23/14 Folic Acid 1 mg PO DAILY@0800 07/23/14 Amlodipine [Norvasc] 10 mg PO DAILY 02/14/15 Lisinopril [Zestril] 20 mg PO BID 02/14/15 Ergocalciferol [Vitamin D] 50,000 unit PO TH 03/02/16 Famotidine [Pepcid AC] 20 mg PO BID PRN 03/02/16 Acetaminophen [Tylenol] 650 mg PO BID PRN 02/16/17 B Complex W-C No.20/Folic Acid [Nephrocaps Softgel] 1 mg PO DAILY 06/07/17 Clobetasol Propionate/Emoll [Clobetasol Emollient 0.05% Crm] 15 gm TP BID PRN 06/07/17 Ondansetron [Zofran] 8 mg PO Q8H PRN PRN 06/07/17 Albuterol Aerosols [Ventolin Aerosols] 2.5 mg INHALATION Q2H PRN PRN #120 vial.neb. 06/11/17 Amoxicillin/Potassium Clav [Augmentin 500-125 Tablet] 1 ea PO DAILY #3 tab 06/11/17 Following Prescrptions Were Given to Patient: Albuterol Aerosols [Ventolin Aerosols] 2.5 mg INHALATION Q2H PRN PRN #120 vial.neb. PRN Reason: Sob &/Or Wheezing Amoxicillin/Potassium Clav [Augmentin 500-125 Tablet] 1 ea PO DAILY #3 tab Primary Care Physician: Lawrence Dozier DO [Primary Care Provider] - Please follow up with your Primary Care Physician in: 1-2 weeks Please Follow Up With: Eric Arteaga DO When: 1-2 weeks Please Follow Up With: Elena Morales MD When: Tomorrow Please Follow Up With: Lawrence Dozier DO When: 1-2 weeks Disposition: Home Minutes spent on discharge:: 35 Patient Condition:: Stable Medical Necessity - Tobacco Use Smoking Status: Former smoker Meaningful Use Info Meaningful Use Diagnoses (Choose all that apply): CHF - CHF COCO/ARB ordered at discharge?: Yes Documented LVEF (%): 55
--- NOTE | 2017-06-11 13:00 | DS.PCM_ITS ---
Addendum entered and electronically signed by EDWARD Todd 06/11/17 13:26: Code Visit Patient also had no prior home nebulizer therapy, however with underlying CHF, lung cancer, and recurrent pna, we ordered for her to have a nebulizer and albuterol to achieve maximal symptom relief and improvement in her respiratory status. Original Note: Discharge Date and Diagnosis Date of Admission: 06/07/17 Date of Discharge: 06/11/17 - Primary Discharge Diagnosis Acute hypoxic respiratory failure 2/2 Acute on chronic diastolic CHF and Acute recurrent streptococcal pna ESRD Lung, Colon, Cervical CA HTN Chronic normocytic anemia 2/2 ESRD - Secondary Discharge Diagnosis Chronic Problems Bacteremia (Chronic) 02/22/16 Bld Cx preliminary Gram positive keyla Endometrial cancer (Chronic) Status post hysterectomy, cystectomy and partial colectomy due to metastatic disease End-stage renal disease on hemodialysis (Chronic) History of hysterectomy for cancer (Chronic) History of nephrectomy (Chronic) Anemia of chronic renal failure, stage 5 (Chronic) Anemia of chronic renal failure (Chronic) Hypertension (Chronic) Obesity (BMI 30-39.9) (Chronic) History of colostomy (Chronic) History of ileal conduit (Chronic) Hospital Course and Treatment Imaging Results: Echo: Interpretation Summary The study was technically difficult. Left ventricular systolic function is normal. The estimated ejection fraction is 55 %. There is moderate to severe mitral annular calcification. Extension of the mitral annular calcification onto the posterior mitral valve. Trivial mitral valve insufficiency. Mild eccentric tricuspid valve insufficiency. Mild diffuse aortic valve thickening. Transmitral doppler flow suggestive of impaired relaxation of left ventricle RAD/Chest 1 View (Portable) IMPRESSION: Diffuse bilateral infiltrates. Radiographic follow-up is recommended. Blunting of the right costophrenic angle. RAD/Chest PA and Lateral IMPRESSION: Worsening bilateral perihilar infiltrates with small right pleural effusion. Consultations: Sultanas - nephrology 06/09/17 17:47 Consult: Onc/Wound/jde developer Routine Comment: Reason for Consult:: colostomy, ileostomy Operations: None Summary of Care Provided: Physical exam on day of discharge: General: Resting comfortably NAD Psych: A/Ox3 normal affect HEENT: PEARRLA AT NC Neck: Supple NT CV: RRR no m/t/r/g/h Resp: CTA Abd: [id number] Soft NT no guarding or rigidity Ext: DP2+= no edema Skin: W/D normal turgor Lymph/Heme: No active bleeding or adenopathy Neuro: CN2-12 intact Hospital course: The patient is a 57 year old F with a history of lung, cervical, colon cancer patient of Dr. Arteaga undergoing chemotherapy, end-stage renal disease, hypertension, who presented to the emergency room with chief complaint of shortness of breath cough. She recently had pneumococcal pneumonia and bacteremia with his Rhizobium radiobacter and influenza a in February of this year, treated by infectious disease with Ramonauin. She had missed her dialysis session prior to presentation to the hospital. She stated she was too sick. She had an x-ray that showed them demonstrated bilateral pulmonary infiltrates and pulmonary edema. She is admitted to the hospital started on Rocephin and azithromycin for possible underlying pneumonia. These were escalated as she had recent pneumonia and his renal compromise secondary to her cancer is placed on Zosyn. She underwent dialysis that day and had significant improvement in her chest x-ray and and her shortness of breath. Echocardiogram demonstrated preserved ejection fraction of 55%. She did have initial high increased oxygen demand 4 L during the day and BiPAP at night. She is able to be weaned down to 2 L of oxygen at rest. Her blood cultures were negative. She did have a positive strep urinary antigen so her pneumonia was felt to be pneumococcal. She was transitioned to oral Augmentin at a dose appropriate for end-stage renal disease. She was unable to be completely weaned down off of oxygen and requires ongoing oxygen at discharge. She did have some weakness and debility however she declined home health care at this time. She was discharged home in stable condition and will need to follow-up with Dr. Arteaga as well as with her primary care provider. This patient was seen by Omer Pierre PA-C under the supervision of Doctor Katherine. [] Discharge Diet: Low fat/ Low Cholesterol, 2000 mg Sodium Diet Discharge Activity: Return to Normal Activity Home Medications: Medications to take at Discharge Calcium Acetate [Phoslo Gel Cap] 2 cap PO TID 07/23/14 Docusate Sodium [Colace] 100 mg PO BID PRN 07/23/14 Folic Acid 1 mg PO DAILY@0800 07/23/14 Amlodipine [Norvasc] 10 mg PO DAILY 02/14/15 Lisinopril [Zestril] 20 mg PO BID 02/14/15 Ergocalciferol [Vitamin D] 50,000 unit PO TH 03/02/16 Famotidine [Pepcid AC] 20 mg PO BID PRN 03/02/16 Acetaminophen [Tylenol] 650 mg PO BID PRN 02/16/17 B Complex W-C No.20/Folic Acid [Nephrocaps Softgel] 1 mg PO DAILY 06/07/17 Clobetasol Propionate/Emoll [Clobetasol Emollient 0.05% Crm] 15 gm TP BID PRN Ondansetron [Zofran] 8 mg PO Q8H PRN PRN 06/07/17 Albuterol Aerosols [Ventolin Aerosols] 2.5 mg INHALATION Q2H PRN PRN #120 vial.neb. 06/11/17 Amoxicillin/Potassium Clav [Augmentin 500-125 Tablet] 1 ea PO DAILY #3 tab 06/11 Following Prescrptions Were Given to Patient: Albuterol Aerosols [Ventolin Aerosols] 2.5 mg INHALATION Q2H PRN PRN #120 vial.neb. PRN Reason: Sob &/Or Wheezing Amoxicillin/Potassium Clav [Augmentin 500-125 Tablet] 1 ea PO DAILY #3 tab Primary Care Physician: Lawrence Dozier DO [Primary Care Provider] - Please follow up with your Primary Care Physician in: 1-2 weeks Please Follow Up With: Eric Arteaga DO When: 1-2 weeks Please Follow Up With: Elena Morales MD When: Tomorrow Please Follow Up With: Lawrence Dozier DO When: 1-2 weeks Disposition: Home Minutes spent on discharge:: 35 Patient Condition:: Stable Medical Necessity - Tobacco Use Smoking Status: Former smoker Meaningful Use Info Meaningful Use Diagnoses (Choose all that apply): CHF - CHF COCO/ARB ordered at discharge?: Yes Documented LVEF (%): 55
--- NOTE | 2017-06-11 14:22 | CASEMGMT ---
Received call from Yun at [facility] and she states that all paperwork has been received and she has a concrete pile driver operator working on getting a tank for pt at this time. Valeri CABA CM
--- NOTE | 2017-06-11 15:28 | PCM.PN.REN ---
Subjective: Seen during HD session Patient is feeling better tooday Breathing is good - Physical Exam General: Alert, Oriented x3 HEENT: Atraumatic Oral: Moist Mucosa Neck: Supple, No JVD Lungs: Clear to auscultation, Normal air movement, No rhonchi, No wheeze Cardiovascular: Regular rate, Regular Rhythm, Normal S1, Normal S2 Abdomen: Bowel Sounds Present, Soft, Non Tender Extremities: No clubbing, No cyanosis, No edema Skin: No rashes Musculoskeletal: No Tenderness to Palpation of Joints or Extremities Lymphatic: No Cervical, Supraclavicular, or Inguinal Adenopathy Neurological: Cranial nerves II-XII grossly intact, Neuro grossly intact Psych/Mental Status: Normal Affect Vital Signs Temp Pulse Resp BP Pulse Ox 98.0 F 100 16 132/65 H 100 06/11/17 13:30 06/11/17 13:30 06/11/17 13:30 06/11/17 13:30 06/11/17 13:30 Oxygen Flow Rate (L/min) 2 Oxygen Delivery Method Nasal Cannula Weight: 81.8 kg Body Mass Index (BMI) 34.5 Intake and Output for Last 24 Hours 06/09/17 06/10/17 06/11/17 23:59 23:59 23:59 Intake Total 913.7 / 913.7 874.7 / 874.7 760 / 760 Output Total 3100 / 3100 0 / 0 Balance -2186.3 / -2186.3 874.7 / 874.7 730 / 730 Microbiology Past 72 Hours 06/10/17 20:37 Streptococcus pneumoniae Antigen (M - Final Urine, Clean Catch Streptococcus pneumonia Ag 06/10/17 20:37 Legionella Antigen - Final Urine, Clean Catch 06/07/17 16:00 Blood Culture - Preliminary Blood Culture (Wb) - Other No growth in 48 hours. 06/09/17 19:35 C. difficile DNA Amplification - Final Stool Laboratory Tests Past 24 Hrs 06/11/17 06/11/17 05:00 05:00 WBC 4.3 L RBC 2.60 L Hgb 7.7 L Hct 25.3 L MCV 97.3 MCH 29.6 MCHC 30.4 L RDW 18.0 H RDW Differential 60.7 H Plt Count 210 MPV 9.6 Immature Gran % (Auto) 0.700 Neut % (Auto) 75.7 H Lymph % (Auto) 12.7 L [place] % (Auto) 7.2 Eos % (Auto) 3.5 Baso % (Auto) 0.2 Absolute Neuts (auto) 3.3 Absolute Lymphs (auto) 0.55 L Total Counted Not Reportable Differential Comment SCANNED Microcytosis 2+ Sodium 140 Potassium 3.9 Chloride 102 Carbon Dioxide 29.0 Anion Gap 9 BUN 38 H Creatinine 6.65 H Estim Creat Clear Calc 7.56 Est GFR (MDRD) Af Amer 8 L Est GFR (MDRD) Non-Af 7 L BUN/Creatinine Ratio 5.7 L Glucose 110 H Calcium 8.6 Medical Necessity - Tobacco Use Smoking Status: Former smoker Assessment/Plan 1- ESRD on TTS HD session today : BQ 400 DQ 600 UF 2-3 L as tolerated Next HD 06/13 URR goal > 70% 2- Acute hypoxemic RF due to CHF/Pneumonia.Better Keep O>I with HD and UF Okay to d/c home Elena Morales MD
--- NOTE | 2017-06-13 13:47 | CASEMGMT ---
RN CM DISCHARGE F/U PHONE CALL LACE: 13 STRATA: 4 CALL DATE 06/13/17 DISCHARGE DATE: 06/11/17 TIME OF CALL: 1345 ATTEMPTED WITH NO ANSWER AT THIS TIME. MESSAGE LEFT FOR PT TO CALL THIS RN YOLIS BACK WHEN AVAILABLE. SSTATEN GERTRUDIS LAGOS
== END 2017-06-11 17:43 | disposition home or self-care (01) | DRG 291 ==
LOC: ED 14:54 → PCU 15:04
PROVIDERS: Physician Assistant; Admitting Provider Internal Medicine; Emergency Provider Emergency Medicine; Family Provider Student in an Organized Health Care Education/Training Program; PCP Student in an Organized Health Care Education/Training Program; Visit Provider Family Medicine
DX: I13.2 Hypertensive heart and chronic kidney disease with heart failure and with stage 5 chronic kidney disease, or end stage renal disease (principal); I50.31 Acute diastolic (congestive) heart failure; N18.6 End stage renal disease; J96.01 Acute respiratory failure with hypoxia; J15.6 Pneumonia due to other Gram-negative bacteria; C34.90 Malignant neoplasm of unspecified part of unspecified bronchus or lung; D63.1 Anemia in chronic kidney disease; E66.9 Obesity, unspecified; K21.9 Gastro-esophageal reflux disease without esophagitis; Z90.5 Acquired absence of kidney; Z90.49 Acquired absence of other specified parts of digestive tract; Z68.33 Body mass index [BMI] 33.0-33.9, adult; Z71.3 Dietary counseling and surveillance; Z93.3 Colostomy status; Z85.41 Personal history of malignant neoplasm of cervix uteri; Z92.3 Personal history of irradiation; Z85.038 Personal history of other malignant neoplasm of large intestine; Z79.899 Other long term (current) drug therapy; Z99.2 Dependence on renal dialysis; Z87.01 Personal history of pneumonia (recurrent); Z99.81 Dependence on supplemental oxygen; Z87.891 Personal history of nicotine dependence; Z85.528 Personal history of other malignant neoplasm of kidney; Y95 Nosocomial condition
CPT/HCPCS: 36415; 71045; 71046; 80048; 84484; 85025; 85027; 85610; 87040; 87449; 87493; 90937; 93005; 93306; 94002; 94003; 94640; 97110; 97116; 97162; 97165; 97530; 99283; J7030; J7050; A4216; G0257

== ENCOUNTER 2017-10-17 09:46 | Observation (INO) | payer MEDICARE, SELFPAY ==
[2017-10-17] VITALS (13 sets, daily range): BP systolic 157–174; BP diastolic 70–78; PULSE 101–120; RESP 12–33; TEMP 36.4–37.1; O2SAT 91–97; BMI 31.4; BMI 31.6
[2017-10-17] MEDS: Ipratropium/Albuterol Sulfate 3 ML AMPUL.NEB INHALATION (10:37)
[2017-10-17 10:59] LABS: Absolute Neutrophil Count 4.3 X10^3/uL (2.0-7.7); Basophil# 0.01 X10^3/uL; Basophil% 0.2 % (0-1); Eosinophil# 0.06 X10^3/uL; Eosinophils% 1.2 % (0-5); Hematocrit 24.6 % (37-47); Hemoglobin 7.7 g/dl (12.0-15.0); Mean Corp Hgb Conc 31.3 g/gl (32-36); Mean Corpuscular Hgb 26.4 pg (27.0-32.0); Mean Corpuscular Volume 84.2 fL (81-99); Monocyte# 0.22 X10^3/uL; Monocyte% 4.4 % (0-10); Neutrophil % 85.6 % (47-70); Platelet Count 166 K/mm3 (150-450); RBC Distribution Width CV 16.7 % (11.6-14.6); RBC Distribution Width SD 51.2 fl (35.1-43.9); Red Blood Count 2.92 M/mm3 (4.2-5.4)
[2017-10-17 11:00] LABS: Differential Indicated SCAN CRITERIA MET; POSITIVE COUNT NO; POSITIVE DIFFERENTIAL YES; POSITIVE MORPHOLOGY NO
[2017-10-17 11:19] LABS: Anion Gap 11 (5-15); BUN 59 mg/dL (7-18); BUN/Creat Ratio 5.8 RATIO (10-20); Calcium,Total 9.9 mg/dL (8.5-10.1); Chloride 98 mmol/L (98-107); EST Glomerular Filtration Rate 4 mL/min (>60); Est Glom Filt Rate - Afr Amer 5 mL/min (>60); Estimated Creatinine Clearance 4.93 ml/min; Glucose 134 mg/dL (74-106); Potassium 5.1 mmol/L (3.5-5.1); Sodium Level 139 mmol/L (136-145)
--- NOTE | 2017-10-17 11:37 | ED.VISSUMM ---
- ER Visit Summary Date of Service: 10/17/17 Chief Complaint: [Shortness of breath] History of Present Illness: The patient is a 57 F [presents with shortness of breath started 2 days ago. Patient complains of a chronic cough. Patient's had some wheezing. Patient does have a history of lung cancer and throat cancer. Patient states that she was too weak to go to her last dialysis which was supposed to be yesterday therefore it has been about 5 days since her last dialysis. Patient denies any fevers at home. Patient at times coughing up some white phlegm. Patient was scheduled to have chemotherapy today but was too weak and was sent to the emergency department.] Physical Examination: HEENT-PERRLA, EOMI. Cranial nerves II through XII grossly intact. TMs clear. Mucous membranes moist. No adenopathy. Cardiovascular-regular and tachycardic. 2 out of 6 systolic ejection murmur noted. Lungs-rales and rhonchi noted bilaterally. Mild tachypnea. No accessory muscle use or retractions. Abdomen-normoactive bowel sounds, soft, nontender, no rebound or rigidity, no peritoneal signs. Extremities-intact ?4, normal range of motion, normal pulses, atraumatic[, patient has +2 edema both lower extremities.] Test Results: [EKG obtained shows sinus tachycardia with a ventricular rate of 109 bpm with no acute ST segment changes. CBC with differential obtained showed a white count of 5.0, hemoglobin 7.7, hematocrit 25, platelets 166. Sodium was 139, potassium 5.1, chloride 98, CO2 30, BUN 59, creatinine 10.2, glucose 134. Troponin was 0.021. Chest x-ray showed bilateral pulmonary edema versus possible pneumonia.] Emergency Department Course and Treatment: [Patient case was discussed with hospitalist will evaluate patient for admission. I suspect patient may be fluid overloaded given that she has not been to dialysis in the last 5 days. Clinically I do not feel patient has pneumonia.] Treatment Plan: [Admit for dialysis] Disposition: [Admit] Impression: [Dyspnea Pulmonary edema] This note was generated with [employer] dictation software. It may contain incorrect words, spelling, and punctuation that were not noted in review of the chart prior to signing ED Disposition - Plan for ED Patient: Chief Complaint: Shortness of Breath Referrals: Lawrence Dozier DO [Primary Care Provider] -
--- NOTE | 2017-10-17 11:39 | NURSING ---
DR KATERINA ROUSE
--- NOTE | 2017-10-17 11:45 | NURSING ---
PCU FLUID OVERLOAD KORAM
--- NOTE | 2017-10-17 11:48 | NURSING ---
DR BORGES IN ER
--- NOTE | 2017-10-17 12:10 | CM.ED ---
CM INITIAL ASSESSMENT: Patient assessed while in ED, with her [id number] at bedside. Home: Patient states she lives in a one floor trailer, with 3-4 steps into the home. She lives with her and has a railing to get into the home. HHS/Aides: Patient states she's had HHS through [facility] in the past. She states she use to have Passport services, but they've been cancelled by her insurance company. Patient states she performs her own ADLs. She does not drive. Her and [id number] take her to her appointments. Patient has previously stayed at [facility]. DME: Patient uses a walker, cane and rollator. She has grab bars in her shower. Patient denies further DME needs. Home Oxygen: Patient states she has a prescription for 2 L continuous oxygen. She states, however, that [facility] has told her to only wear it as needed. She remarks that she's needed to wear it more lately and does wear it every night. She states she has tanks and concentrator. She also has a nebulizer at home. Pharmacy: [facility] Advance Directives: Patient states she does have advance directives and that her medical POA is her , Bharathi Nelson. Contact information is on file. Advance directives are verified to be located in e-Chart. PCP: Lawrence Dozier Specialists: Dr. King and Dr. Vitor Avila Dialysis: [facility], [place] - Tues/Thurs/Sat. Patient's family provides transportation. DC Plan: Home, with support from family. CM will continue to follow for safe and effective discharge planning.
--- NOTE | 2017-10-17 12:42 | PCM.HP.STD ---
Problem List (1) Shortness of breath Status: Acute History of Present Illness Date of Admission: 10/17/17 Chief Complaint: Shortness of breath The patient is a 57 year old F with a history of endometrial, cancer, kidney cancer s/p nephrectomy, laryngeal cancer and lung cancer as well as ESRD on HD (TTS), . Patient was admitted via the ED after she presented with a complaint of shortness of breath and generalized feeling of unwellness of one days duration. Patient was due to go to dialysis 1 day ago but defaulted because she was just not feeling well. She is also due for chemo today but also defaulted because she does not feeling well. She denies any fever or chills, has a cough which is chronic, denies any chest pain, abdominal pain, nausea, diarrhea vomiting. She is on home oxygen at home which he states is because of the lung cancer and she is usually on 2 L. However when she came in because of shortness of breath had to be increased to 4 L. She is also notes his lower extremity swelling which is worsened. Her last dialysis was about 4 days ago. She has dialysis Saturdays. Review of systems was otherwise negative. She denied any contact with any patient with upper respiratory infection he denied any headache, nasal congestion or rhinorrhea. In the ED, vitals were significant for temperature of 97.6 Fahrenheit, pulse rate of 109, respiratory rate of 22 and she was saturating at around 92% on 4 L of oxygen. Chest x-ray showed bilateral areas of airspace disease worse in the right lung with blunting of costophrenic angles most likely due to pulmonary edema. EKG shows sinus tachycardia with heart rate of [address] changes. There was also moderate cardiac enlargement. She was admitted to be managed for likely fluid overload due to missed dialysis. [] Past Medical History Past Medical History (Chronic Problems): Chronic Problems Bacteremia (Chronic) 02/22/16 Bld Cx preliminary Gram positive keyla Endometrial cancer (Chronic) Status post hysterectomy, cystectomy and partial colectomy due to metastatic disease End-stage renal disease on hemodialysis (Chronic) History of hysterectomy for cancer (Chronic) History of nephrectomy (Chronic) Anemia of chronic renal failure, stage 5 (Chronic) Anemia of chronic renal failure (Chronic) Hypertension (Chronic) Obesity (BMI 30-39.9) (Chronic) History of colostomy (Chronic) History of ileal conduit (Chronic) Allergies No Known Allergies Allergy (Verified 10/17/17 09:49) Home Medications: Ambulatory Orders Medication Instructions Recorded Calcium Acetate [Phoslo Gel Cap] 2 cap PO TID 07/23/14 Docusate Sodium [Colace] 100 mg PO BID PRN 07/23/14 Folic Acid 1 mg PO DAILY@0800 07/23/14 Amlodipine [Norvasc] 10 mg PO DAILY 02/14/15 Lisinopril [Zestril] 20 mg PO BID 02/14/15 Ergocalciferol [Vitamin D] 50,000 unit PO TH 03/02/16 Famotidine [Pepcid AC] 20 mg PO BID PRN 03/02/16 Acetaminophen [Tylenol] 650 mg PO BID PRN 02/16/17 B Complex W-C No.20/Folic Acid 1 mg PO DAILY 06/07/17 [Nephrocaps Softgel] Ondansetron [Zofran] 8 mg PO Q8H PRN PRN 06/07/17 Albuterol Aerosols [Ventolin 2.5 mg INHALATION Q2H PRN PRN #120 06/11/17 Aerosols] vial.neb. Hydrocodone Bit/Homatrop Me-Br 1 dose PO 4X/DAY PRN PRN 10/17/17 [Hydrocodone-Homatropine Syrup] Surgical History: hysterectomy - for cervical cancer, - - Left nephrectomy for cancer with rt ileoconduit, Colostomy, Hysterectomy with BL RAHEEL, AVF RUE. [employer] History: endometrial cancer Lives: With Family Smoking Status: Former smoker Alcohol: None Drugs: None - *Family History Paternal History Items: No pertinent history Maternal History Items: No pertinent history Review of Systems Constitutional: Reports: Malaise, Weakness. Denies: Anorexia, Chills, Fever, Weight Change Eyes: Denies: Blurred vision HEENT: Denies: Head Aches, Sinus Congestion, Sinus Drainage Cardiovascular: Reports: Edema, Palpitations, Paroxysmal Noc. Dyspnea. Denies: Chest Pain, Orthopnea, Syncope Respiratory: Reports: Cough, Shortness of Breath, Shortness of breath at rest, Shortness of breath upon exertion. Denies: Sputum production Gastrointestinal: Reports: Nausea. Denies: Abdominal Pain, Vomiting Genitourinary: Denies: Dysuria Musculoskeletal: Denies: Joint Pain, Joint Tenderness Skin: Denies: Rash, Wounds Neurological: Denies: Numbness, Tingling, Focal weakness Psychiatric: Denies: Anxiety, Depression, Homicidal Ideations, Suicidal Ideations Hematologic/ Lymphatic: Denies: Easy Bruising, Easy Bleeding VTE Information - Inpt Only VTE Present on Admission: No VTE Mechan Device Prophylaxis: None VTE Pharm Prophylaxis ordered?: Yes Patient Problems: Active and Suspected Problems Shortness of breath (Acute) - Physical Exam General: Alert, Oriented x3, Cooperative, No apparent distress HEENT: Atraumatic, PERRLA, EOMI, Normocephalic Oral: Moist Mucosa Neck: Supple, No JVD, Negative Carotid Bruits Lungs: Diminished, - - Decreased breath sounds in mid and lower lung [place] bilaterally with fine crackles auscultated and mild wheezing. Cardiovascular: Regular Rhythm, Normal S1, Normal S2, No murmurs, Tachycardic Abdomen: Bowel Sounds Present, Soft, Non Tender, Non-Distended, No Hepato-splenomegaly Extremities: No clubbing, No cyanosis, No edema, Capillary Refill Less than 3 Seconds Skin: No rashes, No breakdown Musculoskeletal: No Tenderness to Palpation of Joints or Extremities Lymphatic: No Cervical, Supraclavicular, or Inguinal Adenopathy Neurological: Cranial nerves II-XII grossly intact, Motor Exam 5/5 strength throughout Psych/Mental Status: Normal Affect, Appropriate, Alert and oriented to time, place, person, mood and affect Vital Signs Temp Pulse Resp BP Pulse Ox 97.6 F L 111 H 24 H 174/76 H 91 10/17/17 12:25 10/17/17 12:33 10/17/17 12:25 10/17/17 12:25 10/17/17 12:25 Oxygen Flow Rate (L/min) 3.5 Oxygen Delivery Method Nasal Cannula Weight: 172 lb 9.951 oz Body Mass Index (BMI) 31.6 Laboratory Tests 10/17/17 10/17/17 10:42 10:42 WBC 5.0 RBC 2.92 L Hgb 7.7 L Hct 24.6 L MCV 84.2 MCH 26.4 L MCHC 31.3 L RDW 16.7 H RDW Differential 51.2 H Plt Count 166 MPV 9.0 Immature Gran % (Auto) 0.600 Neut % (Auto) 85.6 H Lymph % (Auto) 8.0 L [place] % (Auto) 4.4 Eos % (Auto) 1.2 Baso % (Auto) 0.2 Absolute Neuts (auto) 4.3 Absolute Lymphs (auto) 0.40 L Total Counted Not Reportable Sodium 139 Potassium 5.1 Chloride 98 Carbon Dioxide 30.0 Anion Gap 11 BUN 59 H Creatinine 10.20 H* Estim Creat Clear Calc 4.93 Est GFR (MDRD) Af Amer 5 L Est GFR (MDRD) Non-Af 4 L BUN/Creatinine Ratio 5.8 L Glucose 134 H Calcium 9.9 Troponin I 0.021 Diagnostic Data Chest X-Ray 10/17/17 10:18 IMPRESSION: Bilateral airspace disease worse in the right hemithorax suggestive of a bilateral pulmonary edema. Bilateral pneumonia should be considered as well. Electronically Signed: Jose De Jesus Collado MD at 11:09 EDT Tel [phone], Service support , Assessment/Plan All Active Problems Shortness of breath (Acute) HCAP (healthcare-associated pneumonia) (Acute) Influenza A (Acute) Acute respiratory failure with hypoxemia (Acute) CAP (community acquired pneumonia) (Acute) Metabolic alkalosis (Acute) Fluid overload (Resolved) Sepsis (Resolved) 57 y/o female with history of ESRD on HD, laryngeal and lung cancer as well as history of endometrial cancer and kidney cancer status post nephrectomy presenting with a 1 day history of generalized unwellness and shortness of breath. 1. Fluid overload due to missed dialysis didnt go for dialysis yesterday as she started feeling unwell. Had associated nausea but denies any vomiting. oxygen had to be increased to 4L in ED from her baseline of 2, because of hypoxia Chest x-ray which showed pulmonary edema. Admit to PCU telemetry Consult nephrology for urgent dialysis. 2. Laryngeal and lung cancer Due for chemotherapy today but missed it because of acute illness. Labs showed white cell count of 5 and platelets of 166 To follow-up with oncologist upon discharge. 3. Anemia of chronic disease Hb is 7.7, is a normocytic, hypochromic anemia. Is around her baseline likely due to cancer and ESRD 4. Acute on chronic hypoxic respiratory failure due to fluid overload usually on 2L of oxygen at home. now on 4L of oxygen; saturation dropped to 89% on 2L of oxygen will likely resolve and she will be back at her baseline with dialysis titrate oxygen to keep saturation >92% 5. Hypertension: on amlodipine 10mg daily. Will continue 6. DVT prophylaxis: heparin CODE STATUS: Full code. Patient counseled extensively about different types of fluid status. Patient counseled about the differences between full code, DNR CC and DNR CCA. Patient elects to be full code. Total [id number] time 18 minutes. Next This note was generated with [employer] dictation software. It may contain incorrect words, spelling, and punctuation that were not noted in checking the note before signing. Code Visit OBSV E&M: 96792 Initial observation care L3 Procedures: 43415 Advncd Care Plan 30 Min
[2017-10-17] MEDS: Heparin Injection (Vial) 5,000 UNIT/ML VIAL 5000 UNIT SC ×2 (13:48→23:11)
--- NOTE | 2017-10-17 14:08 | PCM.CONS.R ---
Problem List (1) End-stage renal disease on hemodialysis Status: Chronic Consultation - Renal 10/17/17 PCP/ Referring MD: Requesting physician: [] Primary care physician: Lawrence Dozier Reason for Consultation:: ESRD - History of Present Illness History of Present Illness: The patient is a 57 year old F well known to us. ESRD on HD TTS schedule. last HD was sunday, came in fairly dyspneic, CXR shows significant edema. recent history of lung ca. under chemo - Allergies Allergies: Allergies No Known Allergies Allergy (Verified 10/17/17 09:49) - Current Medications Current Medications: Current Medications Acetaminophen (Tylenol) 650 mg PO BID PRN PRN Reason: PAIN Albuterol Sulfate (Ventolin Aerosols) 2.5 mg INHALATION Q2H PRN PRN PRN Reason: SOB &/OR WHEEZING Amlodipine Besylate (Norvasc) 10 mg PO DAILY [facility] Calcium Acetate (Phoslo Gel Cap) 1,334 mg PO TIDCM [facility] Docusate Sodium (Colace) 100 mg PO BID PRN PRN Reason: Constipation Famotidine (Pepcid) 20 mg PO DAILY PRN PRN Reason: ACID REFLUX Folic Acid (Folic Acid) 1 mg PO DAILY@0800 [facility] Heparin Sodium (Porcine) (Heparin Na) 5,000 unit SC Q8 [facility] Last Admin: 10/17/17 13:48 Dose: 5,000 unit Lactobacillus Acidophilus (Acidophilus) 1 tablet PO TID [facility] Last Admin: 10/17/17 13:48 Dose: Not Given Lisinopril (Zestril) 20 mg PO BID [facility] Magnesium Hydroxide (Milk Of Magnesia) 30 ml PO DAILY PRN PRN PRN Reason: Constipation Multivit/Ca Carb/B Cmplx/FA/Prenat (Nephrocaps, Renaphro) 1 capsule PO DAILY [facility] Nutritional Formula (Lactose Free) (Ensure Enlive) 120 ml PO 4X/DAY [facility] Last Admin: 10/17/17 13:48 Dose: 120 ml Ondansetron HCl (Zofran) 8 mg PO Q8H PRN PRN PRN Reason: NAUSEA Sodium Chloride () 5 - 30 ml IV UD PRN PRN Reason: SALINE FLUSH - Past Medical History Past Medical History (Chronic Problems): Chronic Problems Bacteremia (Chronic) 02/22/16 Bld Cx preliminary Gram positive keyla Endometrial cancer (Chronic) Status post hysterectomy, cystectomy and partial colectomy due to metastatic disease End-stage renal disease on hemodialysis (Chronic) History of hysterectomy for cancer (Chronic) History of nephrectomy (Chronic) Anemia of chronic renal failure, stage 5 (Chronic) Anemia of chronic renal failure (Chronic) Hypertension (Chronic) Obesity (BMI 30-39.9) (Chronic) History of colostomy (Chronic) History of ileal conduit (Chronic) - Past Surgical History Surgical History: hysterectomy - for cervical cancer, - - Left nephrectomy for cancer with rt ileoconduit, Colostomy, Hysterectomy with BL RAHEEL, AVF RUE. - Social History Smoking Status: Former smoker Alcohol: None Drugs: None - Family History Paternal History Items: No pertinent history Maternal History Items: No pertinent history Review of Systems Constitutional: Denies: Chills, Fever, Weight Change HEENT: Denies: Head Aches, Sinus Congestion, Sinus Drainage Cardiovascular: Denies: Chest Pain, Palpitations Respiratory: Denies: Cough, Shortness of breath at rest, Sputum production Gastrointestinal: Denies: Abdominal Pain, Nausea, Vomiting Genitourinary: Denies: Dysuria Musculoskeletal: Denies: Joint Pain, Joint Tenderness Skin: Denies: Rash, Wounds Neurological: Denies: Numbness, Tingling, Focal weakness Psychiatric: Denies: Anxiety, Depression, Homicidal Ideations, Suicidal Ideations Hematologic/ Lymphatic: Denies: Easy Bruising, Easy Bleeding Patient Problems: Active and Suspected Problems Shortness of breath (Acute) - Physical Exam General: Alert, Oriented x3, Cooperative HEENT: Atraumatic, PERRLA, EOMI, Normocephalic Neck: Supple, No JVD, Negative Carotid Bruits Lungs: Normal air movement, Rhonchi Cardiovascular: Regular rate, No murmurs Abdomen: Bowel Sounds Present, Soft, Non Tender Extremities: No edema, Capillary Refill Less than 3 Seconds Skin: No rashes, No breakdown Musculoskeletal: No Tenderness to Palpation of Joints or Extremities Neurological: Cranial nerves II-XII grossly intact Psych/Mental Status: Normal Affect, Appropriate Vital Signs Temp Pulse Resp BP Pulse Ox 97.8 F 106 H 20 H 165/73 H 94 10/17/17 13:05 10/17/17 13:05 10/17/17 13:05 10/17/17 13:05 08/29/18 13:05 Oxygen Flow Rate (L/min) 3.5 Oxygen Delivery Method Nasal Cannula Weight: 78.3 kg Body Mass Index (BMI) 31.6 Assessment/Plan All Active Problems Shortness of breath (Acute) HCAP (healthcare-associated pneumonia) (Acute) Influenza A (Acute) Acute respiratory failure with hypoxemia (Acute) CAP (community acquired pneumonia) (Acute) Metabolic alkalosis (Acute) Fluid overload (Resolved) Sepsis (Resolved) ESRD CHF HD today will try for 3-4 L fluid removal today CXr reviewed
[2017-10-17] MEDS: Albuterol 2.5 MG/3 ML VIAL.NEB. INHALATION ×2 (16:20→22:01)
[2017-10-17] MEDS: Calcium Acetate 667 MG Capsule 1334 MG PO (17:13)
[2017-10-17] MEDS: Lisinopril 20 MG Tablet PO (23:11)
[2017-10-18] VITALS (11 sets, daily range): BP systolic 150–157; BP diastolic 65–68; PULSE 91–104; RESP 12–30; TEMP 36.3–36.9; O2SAT 94–98
--- NOTE | 2017-10-18 00:06 | DIALYSIS ---
Hemodialysis x 3.5 hours completed. Pt tolerated tx fair. Pt had c/o cramping throughout tx. Fluid balance -2000ml. [place] pulled. Hemostasis achieved. Dressing applied. Report given to GERTRUDIS Gannon. Pt stable
[2017-10-18] MEDS: Heparin Injection (Vial) 5,000 UNIT/ML VIAL 5000 UNIT SC (05:32)
[2017-10-18 07:00] LABS: Absolute Lymphocyte Count 0.37 X10^3/ul (0.83-4.51); Absolute Neutrophil Count 3.7 X10^3/uL (2.0-7.7); Basophil# 0.01 X10^3/uL; Basophil% 0.2 % (0-1); Eosinophil# 0.09 X10^3/uL; Eosinophils% 2.1 % (0-5); Hematocrit 22.4 % (37-47); Hemoglobin 7.1 g/dl (12.0-15.0); Lymphocyte # 0.37 X10^3/ul (4.0); Lymphocyte % 8.4 % (19-41); Mean Corp Hgb Conc 31.7 g/gl (32-36); Mean Corpuscular Hgb 27.2 pg (27.0-32.0); Mean Corpuscular Volume 85.8 fL (81-99); Mean Platelet Vol. 8.8 fl (6.2-12.0); Monocyte% 4.6 % (0-10); Neutrophil % 84.2 % (47-70); Platelet Count 183 K/mm3 (150-450); RBC Distribution Width SD 48.1 fl (35.1-43.9); Red Blood Count 2.61 M/mm3 (4.2-5.4); White Blood Count 4.4 K/mm3 (4.4-11.0)
[2017-10-18 07:02] LABS: Differential Indicated SCAN CRITERIA MET; POSITIVE COUNT NO; POSITIVE DIFFERENTIAL YES; POSITIVE MORPHOLOGY NO
[2017-10-18 07:23] LABS: BUN 21 mg/dL (7-18); BUN/Creat Ratio 4.2 RATIO (10-20); Calcium,Total 8.3 mg/dL (8.5-10.1); Chloride 94 mmol/L (98-107); Creatinine, Serum 4.99 mg/dL (0.55-1.02); EST Glomerular Filtration Rate 10 mL/min (>60); Est Glom Filt Rate - Afr Amer 12 mL/min (>60); Estimated Creatinine Clearance 10.07 ml/min; Glucose 84 mg/dL (74-106); Phosphorus 2.4 mg/dL (2.5-4.9); Potassium 4.1 mmol/L (3.5-5.1); Sodium Level 136 mmol/L (136-145)
--- NOTE | 2017-10-18 07:55 | CPS ---
PT PLACED ON 4 LPM PER PT REQUEST. BIPAP ON STBY
--- NOTE | 2017-10-18 10:14 | DIALYSIS ---
Hepatitis B sab (positive = 11) result from patient's chronic unit [facility]. Copy of result shall be placed in patient's chart. Report from primary RNTere Access: right upper extremity AVF. Site benign, thrill and bruit present, 2 AVF aneurysms developing. Cannulated with 15 gauge needles x 2 without difficulty. All lines visible, connections secure, NS line clamped x 2.
[2017-10-18] MEDS: oxyCODONE 5 MG Tablet PO (11:03)
--- NOTE | 2017-10-18 11:07 | PCM.DC ---
- Discharge Diagnoses Current Active Problems: Current Active and Chronic Problems Shortness of breath (Acute) You will use the following diet at home:: Renal (restricted protein/sodium) Discharge Activity: Return to Normal Activity Call your doctor if you observe: Shortness of breath, Dizziness, Fainting spells, Chest pain Allergies/Adverse Reactions: Allergies No Known Allergies Allergy (Verified 10/17/17 09:49) Medications to take at Discharge Calcium Acetate [Phoslo Gel Cap] 2 cap PO TID 07/23/14 Docusate Sodium [Colace] 100 mg PO BID PRN 07/23/14 Folic Acid 1 mg PO DAILY@0800 07/23/14 Amlodipine [Norvasc] 10 mg PO DAILY 02/14/15 Lisinopril [Zestril] 20 mg PO BID 02/14/15 Ergocalciferol [Vitamin D] 50,000 unit PO TH 03/02/16 Famotidine [Pepcid AC] 20 mg PO BID PRN 03/02/16 Acetaminophen [Tylenol] 650 mg PO BID PRN 02/16/17 B Complex W-C No.20/Folic Acid [Nephrocaps Softgel] 1 mg PO DAILY 06/07/17 Ondansetron [Zofran] 8 mg PO Q8H PRN PRN 06/07/17 Albuterol Aerosols [Ventolin Aerosols] 2.5 mg INHALATION Q2H PRN PRN #120 vial.neb. 06/11/17 Hydrocodone Bit/Homatrop Me-Br [Hydrocodone-Homatropine Syrup] 1 dose PO 4X/DAY PRN PRN 10/17/17 Primary Care Physician: Lawrence Dozier DO [Primary Care Provider] - Please follow up with your Primary Care Physician in: 1 Week Test Results: Test results from this visit will be discussed in further detail at your follow-up appointment, if applicable. Please Follow Up With: Eric Arteaga DO When: 2-3 days Please Follow Up With: Nephrology When: As scheduled, continue current dialysis regimen Proposed Discharge Date: 10/18/17
--- NOTE | 2017-10-18 11:27 | PCM.DC.SUM ---
<Lisa Plummer - Last Filed: 10/18/17 11:40> Discharge Date and Diagnosis Date of Admission: 10/17/17 Date of Discharge: 10/18/17 - Primary Discharge Diagnosis Active and Suspected Problems 1. Fluid overload due to missed dialysis 2. Anemia of chronic disease 3. Acute on chronic hypoxic respiratory failure secondary to #1 4. Laryngeal and lung cancer - Secondary Discharge Diagnosis Chronic Problems Bacteremia (Chronic) 02/22/16 Bld Cx preliminary Gram positive keyla Endometrial cancer (Chronic) Status post hysterectomy, cystectomy and partial colectomy due to metastatic disease End-stage renal disease on hemodialysis (Chronic) History of hysterectomy for cancer (Chronic) History of nephrectomy (Chronic) Anemia of chronic renal failure, stage 5 (Chronic) Anemia of chronic renal failure (Chronic) Hypertension (Chronic) Obesity (BMI 30-39.9) (Chronic) History of colostomy (Chronic) History of ileal conduit (Chronic) Hospital Course and Treatment Imaging Results: Diagnostic Data Chest X-Ray 10/17/17 10:18 IMPRESSION: Bilateral airspace disease worse in the right hemithorax suggestive of a bilateral pulmonary edema. Bilateral pneumonia should be considered as well. Electronically Signed: Jose De Jesus Collado MD at 11:09 EDT Tel [phone], Service support , Dr. King- Nephrology Operations: None Procedures: Dialysis Summary of Care Provided: The patient is a 57 year old F admitted 10/17/17 due to shortness of breath. She has a past medical history of endometrial cancer, kidney cancer status post nephrectomy, laryngeal cancer and lung cancer following with Dr. Arteaga, end-stage renal disease on hemodialysis, hypertension, anemia of chronic disease. Patient missed dialysis due to not feeling well. Denies fever, chills. Complains of chronic cough. Denies nausea, vomiting. Patient wears 2 L nasal cannula intermittently at home. She did require BiPAP for short period of time. Acute on chronic hypoxic respiratory failure secondary to fluid overload as a result of missing dialysis. Patient received dialysis ?2 with improvement in respiratory symptoms. Oxygen stable on nasal cannula. EKG without ST-T changes. Chest x-ray demonstrated pulmonary edema on admission. Patient's hemoglobin 7.1. Baseline hemoglobin 7-8. Patient will repeat CBC in 2 days as outpatient to be followed by primary care physician and oncology. Follow-up with oncology in 2-3 days. Follow-up with primary care physician in 1 week. Follow-up with nephrology as scheduled, resume current dialysis schedule. General: Alert, Oriented x3, Cooperative, No apparent distress HEENT: Atraumatic, PERRLA, EOMI, Normocephalic Oral: Moist Mucosa Neck: Supple, No JVD, Negative Carotid Bruits Lungs: Diminished, clear to auscultation Cardiovascular: Regular Rhythm, regular rate, normal S1, Normal S2, No murmurs Abdomen: Bowel Sounds Present, Soft, Non Tender, Non-Distended Extremities: No clubbing, No cyanosis, No edema Skin: No rashes, No breakdown Musculoskeletal: No Tenderness to Palpation of Joints or Extremities Lymphatic: No Cervical, Supraclavicular, or Inguinal Adenopathy Neurological: Cranial nerves II-XII grossly intact, neuro grossly intact Psych/Mental Status: Normal Affect, Appropriate Patient seen exam prior to discharge. Physical assessment as noted above. Patient is stable for discharge home with the follow-up her conditions as noted above. This patient was seen by KVNG Krause under the supervision of Dr. Ag. Discharge Diet: Renal Diet Discharge Activity: Return to Normal Activity Call your doctor if you observe: Shortness of breath, Dizziness, Fainting spells, Chest pain Home Medications: Medications to take at Discharge Calcium Acetate [Phoslo Gel Cap] 2 cap PO TID 07/23/14 Docusate Sodium [Colace] 100 mg PO BID PRN 07/23/14 Folic Acid 1 mg PO DAILY@0800 07/23/14 Amlodipine [Norvasc] 10 mg PO DAILY 02/14/15 Lisinopril [Zestril] 20 mg PO BID 02/14/15 Ergocalciferol [Vitamin D] 50,000 unit PO TH 03/02/16 Famotidine [Pepcid AC] 20 mg PO BID PRN 03/02/16 Acetaminophen [Tylenol] 650 mg PO BID PRN 02/16/17 B Complex W-C No.20/Folic Acid [Nephrocaps Softgel] 1 mg PO DAILY 06/07/17 Ondansetron [Zofran] 8 mg PO Q8H PRN PRN 06/07/17 Albuterol Aerosols [Ventolin Aerosols] 2.5 mg INHALATION Q2H PRN PRN #120 vial.neb. 06/11/17 Hydrocodone Bit/Homatrop Me-Br [Hydrocodone-Homatropine Syrup] 1 dose PO 4X/DAY PRN PRN 10/17/17 Primary Care Physician: Lawrence Dozier DO [Primary Care Provider] - Please follow up with your Primary Care Physician in: 1 Week Please Follow Up With: Eric Arteaga DO When: 2-3 days Please Follow Up With: Nephrology When: As scheduled, continue current dialysis regimen Disposition: Home Minutes spent on discharge:: 35 Patient Condition:: Stable Medical Necessity - Tobacco Use Smoking Status: Former smoker Meaningful Use Info Meaningful Use Diagnoses (Choose all that apply): None applicable <KimberliArlene - Last Filed: 10/18/17 12:01> Discharge Date and Diagnosis - Secondary Discharge Diagnosis Chronic Problems Bacteremia (Chronic) 02/22/16 Bld Cx preliminary Gram positive keyla Endometrial cancer (Chronic) Status post hysterectomy, cystectomy and partial colectomy due to metastatic disease End-stage renal disease on hemodialysis (Chronic) History of hysterectomy for cancer (Chronic) History of nephrectomy (Chronic) Anemia of chronic renal failure, stage 5 (Chronic) Anemia of chronic renal failure (Chronic) Hypertension (Chronic) Obesity (BMI 30-39.9) (Chronic) History of colostomy (Chronic) History of ileal conduit (Chronic) Hospital Course and Treatment Summary of Care Provided: Patient seen by Lisa SHANKSC under my supervision The patient is a 57 year old F with past medical history as listed above. She was admitted on 10/17/2017 with complaint of shortness of breath after she missed her dialysis session because she was not feeling she had no assisted fever or chills and complained of a chronic cough. She denied any nausea vomiting he usually is on 2 L of oxygen at home. She was admitted and managed for acute on chronic hypoxic respiratory failure due to fluid overload from missed dialysis. Chest x-ray was consistent with pulmonary edema. Nephrology was consulted and she had one session of dialysis with removal of 1 L on 10/17/2017. Patient's hemoglobin fell to 7.1 with baseline hemoglobin been around 7-8. Patient remained stable and per discussion with nephrology, transfusion was deferred as she wasnt <7. She is to have dialysis before discharge and to follow-up with her index editor resume regular dialysis schedule. She also to follow-up with oncologist in 2-3 days and repeat CBC in 2 days to determine whether she would need any transfusion. Patient seen and examined prior to discharge. She had no complaints and felt well. Shortness of breath had improved but still has a chronic cough which is nonproductive. She denied any fever or chills, any chest pain, abdominal pain, any diarrhea vomiting. Review of systems otherwise negative. Labs and vitals reviewed. Home medications reviewed and Reconciled prior to discharge. o/e: Vital Signs Height 5 ft 2 in Weight: 168 lb 3.403 oz Weight in Pounds 168.2 lbs Pulse Ox 97 Temperature 97.3 F Pulse Rate 101 Respiratory Rate 20 Blood Pressure 157/66 Blood Pressure Position Semi-Fowlers General: Alert, Oriented x3, Cooperative, No apparent distress HEENT: Atraumatic, PERRLA, EOMI, Normocephalic Oral: Moist Mucosa Neck: Supple, No JVD, Negative Carotid Bruits Lungs: Diminished, clear to auscultation Cardiovascular: Regular Rhythm, regular rate, normal S1, Normal S2, No murmurs Abdomen: Bowel Sounds Present, Soft, Non Tender, Non-Distended Extremities: No clubbing, No cyanosis, No edema; AV fistula with good thrill in LUE Skin: No rashes, No breakdown Musculoskeletal: No Tenderness to Palpation of Joints or Extremities Lymphatic: No Cervical, Supraclavicular, or Inguinal Adenopathy Neurological: Cranial nerves II-XII grossly intact, neuro grossly intact Psych/Mental Status: Normal Affect, Appropriate [] Plan as stated above. Agree with rest of Lisa Plummer AWARD CLERK-C's note, assessment and plan. Additional Instructions: to have repeat CBC in 2 days to check Hb and need for transfusion Code Visit Inpatient E&M: 93816 Disch Hosp
--- NOTE | 2017-10-18 11:27 | PCM.PN.BLA ---
Progress Note patient was seen and examined. no new complaints breathing is somewhat better refusing more fluid removal she is close to EDW see orders/ flowsheets
[2017-10-18] MEDS: Calcium Acetate 667 MG Capsule 1334 MG PO (13:09)
[2017-10-18] MEDS: Folic Acid 1 MG Tablet PO (13:09)
[2017-10-18] MEDS: amLODIPine 10 MG Tablet PO (13:09)
[2017-10-18] MEDS: Folic Acid/Vitamin B Comp W-C 1 Capsule 1 CAP PO (13:09)
[2017-10-18] MEDS: Lisinopril 20 MG Tablet PO (13:09)
--- NOTE | 2017-10-18 13:56 | DIALYSIS ---
HD treatment complete. 3.5 hour run, 3k bath. Net fluid removed = 1500. Patient tolerated HD tx well. Right upper arm AVF: site benign, thrill and bruit present, needle site pressure held 15 minutes each. Hemostasis achieved. Report given to primary RN: Jayleen Ruelas
== END 2017-10-18 11:09 | disposition home or self-care (01) ==
LOC: ED 11:48 → PCU 12:54
PROVIDERS: Admitting Provider Student in an Organized Health Care Education/Training Program; Emergency Provider Emergency Medicine; Family Provider Student in an Organized Health Care Education/Training Program; PCP Student in an Organized Health Care Education/Training Program; Visit Provider Student in an Organized Health Care Education/Training Program
DX: E87.79 Other fluid overload (principal); J96.21 Acute and chronic respiratory failure with hypoxia; C34.90 Malignant neoplasm of unspecified part of unspecified bronchus or lung; I12.0 Hypertensive chronic kidney disease with stage 5 chronic kidney disease or end stage renal disease; D63.1 Anemia in chronic kidney disease; Z99.2 Dependence on renal dialysis; N18.6 End stage renal disease; E66.9 Obesity, unspecified; Z68.30 Body mass index [BMI] 30.0-30.9, adult; Z71.3 Dietary counseling and surveillance; Z90.5 Acquired absence of kidney; Z85.528 Personal history of other malignant neoplasm of kidney; Z85.44 Personal history of malignant neoplasm of other female genital organs; Z87.891 Personal history of nicotine dependence; Z79.899 Other long term (current) drug therapy; Z99.81 Dependence on supplemental oxygen
CPT/HCPCS: 36415; 71045; 80048; 80069; 84484; 85025; 90937; 93005; 94002; 94003; 94640; 96372; 97802; 99218; 99283; J7030; A4216; G0257; G0378

== ENCOUNTER → 2017-11-27 20:00 | Outpatient (CLI) | payer MEDICARE, SELFPAY | PROVIDERS: Family Provider Student in an Organized Health Care Education/Training Program; PCP Student in an Organized Health Care Education/Training Program; Visit Provider Student in an Organized Health Care Education/Training Program | DX: G47.33 Obstructive sleep apnea (adult) (pediatric) (principal); R06.00 Dyspnea, unspecified; R53.83 Other fatigue; R06.83 Snoring | CPT/HCPCS: 95810 ==

== ENCOUNTER 2018-01-14 19:35 | Inpatient (IN) | payer MEDICARE, SELFPAY ==
[2018-01-14] VITALS (7 sets, daily range): BP systolic 128–140; BP diastolic 60–64; PULSE 96–126; RESP 17–24; TEMP 37.1–37.5; O2SAT 93–100; BMI 29.2; BMI 29.5
--- NOTE | 2018-01-14 19:51 | EKG12_ITS ---
Test Reason : SOB Blood Pressure : / mmHG Vent. Rate : 105 BPM Atrial Rate : 105 BPM P-R Int : 160 ms QRS Dur : 082 ms QT Int : 314 ms P-R-T Axes : 033 059 029 degrees QTc Int : 415 ms Sinus tachycardia Otherwise normal ECG Confirmed by NEHA FARIAS, AYLEEN ([id number]), editorial intern ORQUIDEA DEJESUS ([id number] on 01/16/2018 4:22:24 PM Referred By: BENY Confirmed By:AYLEEN SOLOMON MD
--- NOTE | 2018-01-14 20:02 | RAD_ITS ---
STUDY: X-RAY CHEST REASON FOR EXAM: Female, 57 years old. Copy TECHNIQUE: Frontal view of the chest COMPARISON: 10/17/2017. FINDINGS: There are persistent airspace opacities noted in the right mid to lower lung field. The previously seen left lung opacity has resolved. There are no pleural effusions. There is no pneumothorax. The heart is normal in size. The visualized osseous structures are within normal limits. RAD/Chest 1 View (Portable) IMPRESSION: Persisting airspace opacities in the right mid to lower lung field. Resolution of the previously seen left-sided opacities. Electronically Signed: Ernesto Murray, at 20:18 EST Tel , Service support ,
[2018-01-14] MEDS: Ipratropium/Albuterol Sulfate 3 ML AMPUL.NEB INHALATION (20:10)
[2018-01-14] MEDS: Albuterol 2.5 MG/3 ML VIAL.NEB. INHALATION (20:10)
[2018-01-14] MEDS: Acetaminophen 500 MG Tablet 1000 MG PO (20:16)
[2018-01-14] MEDS: Morphine 4 MG/ML Syringe IV (20:17)
[2018-01-14] MEDS: Ondansetron 4 MG/2 ML Vial IV (20:17)
--- NOTE | 2018-01-14 20:25 | ED.DCSUM_ITS ---
- ER Visit Summary Date of Service: 01/14/18 Chief Complaint: Cough, fever History of Present Illness: The patient is a 57 F with history of end-stage renal disease who is on dialysis Sunday, , and Sunday along with metastatic cervical cancer who is currently on chemo presents with fever, cough, shortness of breath. Patient's last chemo was last Sunday. She did have dialysis treatment on Sunday. She is scheduled for dialysis tomorrow. She states that over the past 4 days, she had intermittent fevers, cough with productive sputum, generalized malaise, myalgias and arthralgias. She is also had some pain in her right thigh. She denies any dysuria. She is not on oxygen at home. The patient does continue to smoke. Physical Examination: Vital signs reviewed General: Well-nourished, well-developed Head: Normocephalic, atraumatic Eyes: Pupils equal and reactive, extraocular muscles intact Neck, supple, no lymphadenopathy Heart: Regular rate and rhythm Respiratory: No distress, wheezing focally in the right lower lobe Abdomen: Soft, nontender, nondistended, no peritoneal signs, ostomy site is intact, no tenderness Back: Nontender Extremities: Nontender, no edema, no cords, pulses in the lower extremities are normal Skin: Normal color no rash Neuro: Alert and oriented, no focal or lateralizing deficits Test Results: [] Emergency Department Course and Treatment: The patient presents with cough, fever, shortness of breath. She does have focal change in lung sounds in the right lower lobe. She was given nebulized breathing treatments and Tylenol. She was also given something for pain. Her chest x-ray does confirm a right lower lobe infiltrate. Screening labs relatively unremarkable. He does demonstrate a chronic kidney disease. Her lactate is normal. However, given the patient's history of immunosuppression with her chemotherapy, the fact that she is on dialysis, and now has hypoxia I do feel that she is going to require admission. Patient was covered with broad-spectrum antibiotics. She was discussed with the hospitalist will be admitted. Treatment Plan: [] Disposition: Admission Impression: 1. Healthcare associated pneumonia 2. Hypoxia 3. History of immunosuppression This note was generated with [employer] software. It may contain incorrect words, spelling, and punctuation that were not noted in review of the chart prior to signing ED Disposition - Plan for ED Patient: Chief Complaint: General Illness Referrals: Lawrence Dozier DO [Primary Care Provider] -
[2018-01-14 20:38] LABS: Absolute Lymphocyte Count 0.67 X10^3/ul (0.83-4.51); Absolute Neutrophil Count 7.1 X10^3/uL (2.0-7.7); Basophil# 0.01 X10^3/uL; Basophil% 0.1 % (0-1); Eosinophil# 0.02 X10^3/uL; Eosinophils% 0.2 % (0-5); Hematocrit 29.6 % (37-47); Hemoglobin 9.2 g/dl (12.0-15.0); Lymphocyte # 0.67 X10^3/ul (4.0); Lymphocyte % 8.3 % (19-41); Mean Corp Hgb Conc 31.1 g/gl (32-36); Mean Corpuscular Hgb 27.1 pg (27.0-32.0); Mean Corpuscular Volume 87.3 fL (81-99); Mean Platelet Vol. 9.6 fl (6.2-12.0); Monocyte# 0.19 X10^3/uL; Monocyte% 2.4 % (0-10); Neutrophil # 7.13 X10^3/uL (2.7-7.7); Neutrophil % 88.9 % (47-70); POSITIVE COUNT NO; POSITIVE DIFFERENTIAL NO; POSITIVE MORPHOLOGY NO; Platelet Count 177 K/mm3 (150-450); RBC Distribution Width CV 17.1 % (11.6-14.6); RBC Distribution Width SD 54.8 fl (35.1-43.9); Red Blood Count 3.39 M/mm3 (4.2-5.4)
[2018-01-14 20:57] LABS: ALB/GLOB Ratio 0.7 RATIO (0.9-2.4); AST(SGOT) 22 U/L (15-37); Alanine Aminotransfer ALT/SGPT 18 U/L (13-56); Albumin, Serum 2.8 g/dL (3.2-5.0); Alkaline Phosphatase 81 U/L (45-117); Anion Gap 10 (5-15); BUN 59 mg/dL (7-18); BUN/Creat Ratio 6.8 RATIO (10-20); Calcium,Total 9.1 mg/dL (8.5-10.1); Chloride 96 mmol/L (98-107); Creatinine, Serum 8.72 mg/dL (0.55-1.02); EST Glomerular Filtration Rate 5 mL/min (>60); Est Glom Filt Rate - Afr Amer 6 mL/min (>60); Estimated Creatinine Clearance 5.77 ml/min; Globulin 4.2 g/dL (2.2-4.2); Glucose 106 mg/dL (74-106); Potassium 4.8 mmol/L (3.5-5.1); Sodium Level 135 mmol/L (136-145)
[2018-01-14] MEDS: Vancomycin IV 1,000 MG/200 ML BAG 167 MG IV (21:33)
--- NOTE | 2018-01-14 22:19 | PCM.HP.STD ---
Problem List (1) Shortness of breath Status: Acute (2) Bacteremia Status: Chronic Comment: 02/22/16 Bld Cx preliminary Gram positive keyla (3) HCAP (healthcare-associated pneumonia) Status: Acute (4) Influenza A Status: Chronic Comment: 02/22/16 Influenza A (5) Endometrial cancer Status: Chronic Comment: Status post hysterectomy, cystectomy and partial colectomy due to metastatic disease (6) End-stage renal disease on hemodialysis Status: Chronic (7) History of hysterectomy for cancer Status: Chronic (8) History of nephrectomy Status: Chronic (9) Acute respiratory failure with hypoxemia Status: Acute (10) Anemia of chronic renal failure, stage 5 Status: Chronic (11) Metabolic alkalosis Status: Resolved (12) Anemia of chronic renal failure Status: Chronic Qualifiers: Chronic kidney disease stage: stage 5 Qualified Code(s): N18.5 - Chronic kidney disease, stage 5; D63.1 - Anemia in chronic kidney disease (13) Hypertension Status: Chronic Qualifiers: Hypertension type: essential hypertension (14) Obesity (BMI 30-39.9) Status: Chronic (15) History of colostomy Status: Chronic (16) History of ileal conduit Status: Chronic History of Present Illness Date of Admission: 01/14/18 Chief Complaint: Shortness of breath, cough and fever for past 4 days. The patient is a 57 year old F with history of endometrial cancer with metastases to left kidney, bladder, possible lung as per the patient status post hysterectomy, left nephrectomy, ileal conduit on right side for urine and colostomy on left side, ESRD on HD, T/T/S, being managed by [place] [employer] operator came to ER with fever, cough, shortness of breath for last 4 days. Patient had last chemo on last Sunday and she was getting sick since which progressively got worse. Patient gets chemo every Sunday for 3 weeks and then off for fourth Sunday. Patient also complained of pain over right thigh and right pelvic region which she said happens every year for last 3 years during decision. Patient denies any previous history of DVT/PE. Chest x-ray in ED shows persisting airspace specifically in right mid to lower lung field probably associated with right lower lobe atelectasis. Previous left lung opacity has resolved. Past Medical History Past Medical History (Chronic Problems): Chronic Problems Bacteremia (Chronic) 02/22/16 Bld Cx preliminary Gram positive keyla Influenza A (Chronic) 02/22/16 Influenza A Endometrial cancer (Chronic) Status post hysterectomy, cystectomy and partial colectomy due to metastatic disease End-stage renal disease on hemodialysis (Chronic) History of hysterectomy for cancer (Chronic) History of nephrectomy (Chronic) Anemia of chronic renal failure, stage 5 (Chronic) Anemia of chronic renal failure (Chronic) Hypertension (Chronic) Obesity (BMI 30-39.9) (Chronic) History of colostomy (Chronic) History of ileal conduit (Chronic) Allergies No Known Allergies Allergy (Verified 01/14/18 19:37) Home Medications: Ambulatory Orders Medication Instructions Recorded Calcium Acetate [Phoslo Gel Cap] 2 cap PO TID 07/23/14 Docusate Sodium [Colace] 100 mg PO BID PRN 07/23/14 Folic Acid 1 mg PO DAILY@0800 07/23/14 Amlodipine [Norvasc] 10 mg PO DAILY 02/14/15 Lisinopril [Zestril] 20 mg PO BID 02/14/15 Ergocalciferol [Vitamin D] 50,000 unit PO TH 03/02/16 Famotidine [Pepcid AC] 20 mg PO BID PRN 03/02/16 Acetaminophen [Tylenol] 650 mg PO BID PRN 02/16/17 B Complex W-C No.20/Folic Acid 1 mg PO DAILY 06/07/17 [Nephrocaps Softgel] Ondansetron [Zofran] 8 mg PO Q8H PRN PRN 06/07/17 Albuterol Aerosols [Ventolin 2.5 mg INHALATION Q2H PRN PRN #120 06/11/17 Aerosols] vial.neb. Hydrocodone Bit/Homatrop Me-Br 1 dose PO 4X/DAY PRN PRN 10/17/17 [Hydrocodone-Homatropine Syrup] Ascorbic Acid [Vitamin C] 500 mg PO DAILY@0800 01/14/18 Surgical History: hysterectomy - for cervical cancer, - - Left nephrectomy for cancer with rt ileoconduit, Colostomy, Hysterectomy with BL RAHEEL, AVF RUE. 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 Tobacco Use: Cigarettes - *Family History Paternal History Items: No pertinent history Maternal History Items: No pertinent history Review of Systems Constitutional: Reports: Anorexia, Chills, Fever, Night Sweats, Malaise, Weakness, Weight Change, Fatigue HEENT: Denies: Head Aches, Sinus Congestion, Sinus Drainage Cardiovascular: Reports: Light Headedness. Denies: Chest Pain, Palpitations Respiratory: Reports: Cough, Shortness of Breath, Shortness of breath at rest, Shortness of breath upon exertion. Denies: Sputum production Gastrointestinal: Reports: Nausea, Vomiting. Denies: Abdominal Pain Genitourinary: Reports: - - Very low urine output in urostomy bag. On hemodialysis. Denies: Dysuria, Frequency Musculoskeletal: Reports: Joint Pain, Joint stiffness, Joint Tenderness - Right hip, Muscle pain Skin: Denies: Rash, Wounds Neurological: Denies: Numbness, Tingling, Focal weakness Psychiatric: Reports: Anxiety. Denies: Depression, Homicidal Ideations, Suicidal Ideations Hematologic/ Lymphatic: Denies: Easy Bruising, Easy Bleeding VTE Information - Inpt Only VTE Present on Admission: No VTE Mechan Device Prophylaxis: None VTE Pharm Prophylaxis ordered?: Yes - Physical Exam General: Alert, Oriented x3, Cooperative HEENT: Atraumatic, PERRLA, EOMI, Normocephalic Oral: Dry Mucosa Neck: Supple, No JVD, Negative Carotid Bruits Lungs: Diminished - Air entry diminished in posterior half of right lung., Rales - Coarse rales present, Rhonchi - Rhonchi morning right lung, Short of Breath, Tachypneic Cardiovascular: Regular rate, Regular Rhythm, Normal S1, Normal S2, No murmurs Abdomen: Bowel Sounds Present, Soft, Non Tender, Non-Distended, - - Right lower abdomen ileal conduit with urobag. Left lower abdomen with colostomy bag Extremities: No edema, Capillary Refill Less than 3 Seconds Skin: No rashes, No breakdown Musculoskeletal: Arthritic Changes, Muscle Wasting, Tenderness - Right hip and right pelvic bone Neurological: Cranial nerves II-XII grossly intact, Deep Tendon Reflexes 2+/4 and Symmetrical, Neuro grossly intact, - - Muscle weakness in lower extremity, 4+/5 Psych/Mental Status: Normal Affect, Appropriate Vital Signs Temp Pulse Resp BP Pulse Ox 99.3 F H 98 17 128/62 H 97 01/14/18 21:48 01/14/18 21:48 01/14/18 21:48 01/14/18 21:48 01/14/18 21:48 Oxygen Flow Rate (L/min) 2 Oxygen Delivery Method Nasal Cannula Weight: 160 lb 4.417 oz Body Mass Index (BMI) 29.5 Microbiology Past 72 Hours 01/14/18 20:00 Influenza Types A,B Direct FA (SANDEEP) - Final Mucosa - Nasopharyngeal Laboratory Tests Past 24 Hrs 01/14/18 01/14/18 01/14/18 20:00 20:00 20:00 WBC 8.0 RBC 3.39 L Hgb 9.2 L Hct 29.6 L MCV 87.3 MCH 27.1 MCHC 31.1 L RDW 17.1 H RDW Differential 54.8 H Plt Count 177 MPV 9.6 Immature Gran % (Auto) 0.100 Neut % (Auto) 88.9 H Lymph % (Auto) 8.3 L [place] % (Auto) 2.4 Eos % (Auto) 0.2 Baso % (Auto) 0.1 Absolute Neuts (auto) 7.1 Absolute Lymphs (auto) 0.67 L Total Counted Not Reportable Sodium 135 L Potassium 4.8 Chloride 96 L Carbon Dioxide 29.0 Anion Gap 10 BUN 59 H Creatinine 8.72 H* Estim Creat Clear Calc 5.77 Est GFR (MDRD) Af Amer 6 L Est GFR (MDRD) Non-Af 5 L BUN/Creatinine Ratio 6.8 L Glucose 106 Lactic Acid 1.0 Calcium 9.1 Total Bilirubin 0.40 AST 22 ALT 18 Alkaline Phosphatase 81 Total Protein 7.0 Albumin 2.8 L Globulin 4.2 Albumin/Globulin Ratio 0.7 L Assessment/Plan All Active Problems Shortness of breath (Acute) HCAP (healthcare-associated pneumonia) (Acute) Acute respiratory failure with hypoxemia (Acute) Metabolic alkalosis (Resolved) Fluid overload (Resolved) Sepsis (Resolved) The patient is a 57 year old F with history of endometrial cancer with metastases to left kidney, bladder, possible lung as per the patient status post hysterectomy, left nephrectomy, ileal conduit on right side for urine and colostomy on left side, ESRD on HD, T/T/S, being managed by [place] [employer] operator came to ER with fever, cough, shortness of breath for last 4 days. Patient had last chemo on last Sunday and she was getting sick since Thanks[place] which progressively got worse. Patient gets chemo every Sunday for 3 weeks and then off for fourth Sunday. Patient also complained of pain over right thigh and right pelvic region which she said happens every year for last 3 years during decision. Patient denies any previous history of DVT/PE. Chest x-ray in ED shows persisting airspace specifically in right mid to lower lung field probably associated with right lower lobe atelectasis. Previous left lung opacity has resolved. 1. SIRS (R, T 99.3 Fahrenheit, sinus tachycardia, heart rate 111, tachypnea RR 24/min) complicated right middle and lower lung HCAP in immunocompromised host: Patient is being admitted in PCU on cardiac surgeon. Lactic acid is normal. Patient does not have leukocytosis or thrombocytopenia. Respiratory panel ordered. Pneumonia workup with urinary antigens, sputum culture and blood cultures x2 ordered. UA with urine culture. Started on IV meropenem and vancomycin. MRSA nasal screen. ID consult for complicated pneumonia. When the patient can lay down, patient will need CT chest. 2. Endometrial carcinoma with wide metastasis possible stage IV endometrial carcinoma: Consult Dr. Arteaga, her oncologist for further opinion and recommendation. This has metastasis to bladder, left kidney, probably lung. 3. Right thigh and pelvic pain, concern of DVT: D-dimer is ordered. Venous Doppler of lower extremities. If d-dimer is positive, and WILL need CTPA to rule out PE. Right hip with pelvic x-ray ordered. 4. ESRD on hemodialysis: Consult [facility], Dr. King. On hemodialysis Sunday, and Sunday. 5. Other comorbidities include hypertension, obesity, ileal conduit, colostomy: Multiple comorbidities complicates the present care and expect difficult and delay recovery. Nursing care. DVT prophylaxis: On heparin 5000 units subcutaneous 3 times daily Clinical Impression(s) from Imaging Studies Chest X-Ray 01/14/18 20:02 IMPRESSION: Persisting airspace opacities in the right mid to lower lung field. Resolution of the previously seen left-sided opacities. Microbiology Past 72 Hours 01/14/18 20:00 Mucosa - Nasopharyngeal Influenza Types A,B Direct FA (SANDEEP) - Final Laboratory Results 01/14/18 20:00: WBC 8.0, RBC 3.39 L, Hgb 9.2 L, Hct 29.6 L, MCV 87.3, MCH 27.1, MCHC 31.1 L, RDW 17.1 H, RDW Differential 54.8 H, Plt Count 177, MPV 9.6, Immature Gran % (Auto) 0.100, Neut % (Auto) 88.9 H, Lymph % (Auto) 8.3 L, [place] % (Auto) 2.4, Eos % (Auto) 0.2, Baso % (Auto) 0.1, Absolute Neuts (auto) 7.1, Absolute Lymphs (auto) 0.67 L, Total Counted Not Reportable 01/14/18 20:00: Sodium 135 L, Potassium 4.8, Chloride 96 L, Carbon Dioxide 29.0, Anion Gap 10, BUN 59 H, Creatinine 8.72 H*, Estim Creat Clear Calc 5.77, Est GFR (MDRD) Af Amer 6 L, Est GFR (MDRD) Non-Af 5 L, BUN/Creatinine Ratio 6.8 L, Glucose 106, Calcium 9.1, Total Bilirubin 0.40, AST 22, ALT 18, Alkaline Phosphatase 81, Total Protein 7.0, Albumin 2.8 L, Globulin 4.2, Albumin/Globulin Ratio 0.7 L 01/14/18 20:00: Lactic Acid 1.0 Code Visit Inpatient E&M: [id number] Init Hosp L3
--- NOTE | 2018-01-14 22:59 | VDLE_ITS ---
Reason For Study: BLE SWELLING RIGHT LEFT GSV is normal. GSV is normal. CFV is compressible, spontaneous, phasic, CFV is compressible, spontaneous, phasic, competent and demonstrates normal competent, and demonstrates normal augmentation. augmentation. FV is compressible, spontaneous, phasic, FV is compressible, spontaneous, phasic, competent and demonstrates normal competent and demonstrates normal augmentation. augmentation. POP V is compressible, spontaneous, phasic, POP V is compressible, spontaneous, phasic, competent and demonstrates normal competent and demonstrates normal augmentation. augmentation. T/P Trunk is compressible. T/P Trunk is compressible. PTV is compressible. PTV is compressible. RT PerV is compressible. LT PerV is compressible. Procedure Exam performed portable in patient room. The exam was diagnostic. A preliminary report was called and/or faxed to [facility]. <> Interpretation Summary Deep veins of the lower extremities are bilaterally patent and compressible segmentally. There is no evidence of deep vein thrombosis on either side. Valvular competence appears intact within the proximal deep venous systems bilaterally. The greater saphenous veins appear bilaterally patent and compressible segmentally. Ordering Physician: Sha Reyes Referring Physician: Lawrence Fink Performed By: Jaye Connors, JAKOB, RVT
[2018-01-14] MEDS: 0.9% Normal Saline 1,000 ML 75 ML IV (23:05)
--- NOTE | 2018-01-14 23:38 | RAD_ITS ---
HISTORY: RIGHT HIP PAIN. HAS METASTATIC ENDOMETRIAL CA COMPARISON: CT abdomen and pelvis 07/23/2014 FINDINGS: XR Hip Unilateral with Pelvis when performed; 3 Views: No fracture or acute disease identified. Osteoarthritis with marked narrowing of the right femoral acetabular joint. The left hip shows no corresponding significant arthritis. The right inferior pubic ramus shows a lucent defect, unchanged compared to CT exam in 2014. This may reflect the sequela of old trauma or possibly chronic osteolytic lesion. Right hemipelvis ileostomy noted. Multiple pelvic surgical clips. RAD/HIP, UNI W/ Pelvis 2-3 Views IMPRESSION: 1. Advanced osteoarthritis of the right hip. 2. No fracture or acute disease. 3. Chronic lucent defect of the right inferior pubic ramus. Please see above comment. If warranted, further evaluation with whole body bone scan could be obtained. at [id number] Reported and signed by: Srikanth Acuña MD Electronically Signed: Srikanth Acuña, at 1:32 EST Tel , Service support ,
[2018-01-15] VITALS (15 sets, daily range): BP systolic 100–143; BP diastolic 52–69; PULSE 78–100; RESP 14–20; TEMP 36.4–37.4; O2SAT 95–98
[2018-01-15 00:04] LABS: D-Dimer Quantitative (DVT/PE) 9.29 FEU/ug/m (0.27-0.49)
[2018-01-15] MEDS: oxyCODONE 5 MG Tablet PO ×3 (00:17→18:36)
--- NOTE | 2018-01-15 00:48 | CT_ITS ---
HISTORY: DDElevated D-Dimer,SOB,COUGH AND FEVERHX:HTN,ENDOMETRIAL CANCER,KIDNEY DZ TECHNIQUE: Helically acquired images were obtained of the chest following IV contrast as per pulmonary angiogram protocol with 3D reconstructions. A radiation dose optimization technique was used for this scan. IV Contrast dosage and agent: 75 cc Isovue 370 contrast COMPARISON: 03/03/2015 CTA chest and chest x-ray 01/14/2018 FINDINGS: No CT findings of pulmonary embolic disease. The right upper lobe and right descending pulmonary artery are encased and narrowed by tumor but not obstructed. Thoracic aorta is normal in caliber. No pericardial effusion. Right infrahilar and right middle lobe oval soft tissue mass which measures approximately 4.7 x 3.4 cm and increased in size compared to previous. The medial segment right middle lobe bronchus is occluded. Widespread areas of consolidation involving the right upper lobe, right perihilar region, and right lower lobe. Small right pleural effusion. Right hemithorax volume loss with mild elevation of the right hemidiaphragm. Left upper lobe 9 mm subpleural nodule compatible with a metastasis. Left lower lobe (axial image 61/230) 1.2 x 0.7 cm pleural-based nodule compatible with a metastasis Hepatosplenomegaly. Gallstones. Benign-appearing varix-like structure at the right axilla CT/CTA Chest W/WO Contrast IMPRESSION: 1. No evidence of pulmonary embolic disease. 2. Right infrahilar and right middle lobe 4.7 cm mass, increased in size compared to previous. Small right pleural effusion. 3. Right lung extensive consolidation with volume loss. Radiation therapy, if previously performed, could show similar findings. 4. Several subpleural and pleural-based left lung nodules compatible with metastases. Individualized dose optimization techniques were used for this CT. at 0402 Reported and signed by: Srikanth Acuña MD Electronically Signed: Srikanth Acuña, at 3:59 EST Tel , Service support ,
--- NOTE | 2018-01-15 04:09 | PCM.RX.CS ---
Consult Pharmacy has been consulted to manage selected antiobiotic: Vancomycin Type of Consult: New start Suspected Infection: Pneumonia Prior Doses of Antibiotics Received/Current Regimen: Medications Meropenem 0.5 gm/ Sodium (Chloride) 110 mls @ 33 mls/hr IV DAILY [facility] Labs: Sodium 135 mmol/L (136-145) L 01/14/18 20:00 Potassium 4.8 mmol/L (3.5-5.1) 01/14/18 20:00 Chloride 96 mmol/L (98-107) L 01/14/18 20:00 Carbon Dioxide 29.0 mmol/L (21.0-32.0) 01/14/18 20:00 Anion Gap 10 (5-15) 01/14/18 20:00 BUN 59 mg/dL (7-18) H 01/14/18 20:00 Creatinine 8.72 mg/dL (0.55-1.02) H* 01/14/18 20:00 Est GFR (MDRD) Af Amer 6 mL/min (>60) L 01/14/18 20:00 Est GFR (MDRD) Non-Af 5 mL/min (>60) L 01/14/18 20:00 BUN/Creatinine Ratio 6.8 RATIO (10-20) L 01/14/18 20:00 Glucose 106 mg/dL (74-106) 01/14/18 20:00 Microbiology: Microbiology 01/14/18 20:00 Mucosa - Nasopharyngeal Influenza Types A,B Direct FA (SANDEEP) - Final Weight used for dosin.7 kg Estimated Creatinine Clearance: DIALYSIS Goal Trough: 10-15 mcg/mL Pharmacy Plan for Drug Dosing: Pharmacy Service will continue to monitor and adjust dosing as required. Medications Vancomycin HCl () 1 lab MISCELL. TuThSa@0600 [facility] Vancomycin HCl (Vancomycin Renal/Hd Dosing) 1 unit MISCELL. TuThSa@0800 [facility] Vancomycin HCl () 500 mg in 100 mls @ 100 mls/hr IV X1 ONE Stop: 01/15/18 10:59 GIVE DOSE POST-DIALYSIS, DRAW TROUGH PRE DIALYSIS AND PHARMACY TO CALCULATE NEXT DOSE Follow-Up Labs: Trough Vancomycin Labs to be done on [date and time ordered]: 01/17 PRIOR TO DIALYSIS
--- NOTE | 2018-01-15 04:13 | PHA.PHARE_ITS ---
Consult Pharmacy has been consulted to manage selected antiobiotic: Vancomycin Type of Consult: New start Suspected Infection: Pneumonia Prior Doses of Antibiotics Received/Current Regimen: Medications Meropenem 0.5 gm/ Sodium (Chloride) 110 mls @ 33 mls/hr IV DAILY [facility] Labs: Sodium 135 mmol/L (136-145) L 01/14/18 20:00 Potassium 4.8 mmol/L (3.5-5.1) 01/14/18 20:00 Chloride 96 mmol/L (98-107) L 01/14/18 20:00 Carbon Dioxide 29.0 mmol/L (21.0-32.0) 01/14/18 20:00 Anion Gap 10 (5-15) 01/14/18 20:00 BUN 59 mg/dL (7-18) H 01/14/18 20:00 Creatinine 8.72 mg/dL (0.55-1.02) H* 01/14/18 20:00 Est GFR (MDRD) Af Amer 6 mL/min (>60) L 01/14/18 20:00 Est GFR (MDRD) Non-Af 5 mL/min (>60) L 01/14/18 20:00 BUN/Creatinine Ratio 6.8 RATIO (10-20) L 01/14/18 20:00 Glucose 106 mg/dL (74-106) 01/14/18 20:00 Microbiology: Microbiology 01/14/18 20:00 Mucosa - Nasopharyngeal Influenza Types A,B Direct FA (SANDEEP) - Final Weight used for dosin.7 kg Estimated Creatinine Clearance: DIALYSIS Goal Trough: 10-15 mcg/mL Pharmacy Plan for Drug Dosing: Pharmacy Service will continue to monitor and adjust dosing as required. Medications Vancomycin HCl () 1 lab MISCELL. TuThSa@0600 [facility] Vancomycin HCl (Vancomycin Renal/Hd Dosing) 1 unit MISCELL. TuThSa@0800 [facility] Vancomycin HCl () 500 mg in 100 mls @ 100 mls/hr IV X1 ONE Stop: 01/15/18 10:59 GIVE DOSE POST-DIALYSIS, DRAW TROUGH PRE DIALYSIS AND PHARMACY TO CALCULATE NEXT DOSE Follow-Up Labs: Trough Vancomycin Labs to be done on [date and time ordered]: 01/17 PRIOR TO DIALYSIS
[2018-01-15] MEDS: Heparin Injection (Vial) 5,000 UNIT/ML VIAL 5000 UNIT SC ×2 (06:20→21:42)
[2018-01-15] MEDS: Ipratropium/Albuterol Sulfate 3 ML AMPUL.NEB INHALATION ×3 (07:25→20:24)
--- NOTE | 2018-01-15 07:54 | PCM.CONS.B ---
Problem List (1) Endometrial cancer Status: Chronic Comment: Status post hysterectomy, cystectomy and partial colectomy due to metastatic disease (2) HCAP (healthcare-associated pneumonia) Status: Acute (3) Shortness of breath Status: Acute - Consult Date of Consult: 01/15/[address] Reyse regarding a patient with fever and shortness of breath undergoing chemotherapy treatment for metastatic uterine cancer. My final recommendation will be communicated by electronic medical record into the nursing staff. - Reason for Consult History of Present Illness Date of Admission: 01/14/18 Chief Complaint: Shortness of breath, cough and fever The patient is a 57 year old F with history of endometrial cancer with metastases to left kidney, bladder, possible lung as per the patient status post hysterectomy, left nephrectomy for renal cell carcinoma in 2009., ileal conduit on right side for urine and colostomy on left side, ESRD on HD, T/T/S, being managed by [facility] management tech came to ER with fever, cough, shortness of breath for 4 days. Patient had last therapy treatment with paclitaxel on last Sunday. She was getting sick since Thanksgi which progressively got worse. Her also has a cold and cough at home for last 2 weeks. Patient also complained of pain over right hip and right pelvic region for the last week. Her pain is worse when walking and standing. Patient denies any previous history of DVT/PE. Chest x-ray in ED shows persisting airspace specifically in right mid to lower lung field probably associated with right lower lobe atelectasis. Previous left lung opacity has resolved. Oncology history: -Laparoscopic left radical nephrectomy 2009 for renal cell carcinoma. -Concurrent cisplatin and radiation therapy August - September 2009 for with brachytherapy October 2009. -Laparoscopic left lymph node dissection and right purulent node biopsy for effusion no cancer was found in 2009 -Multiple surgical and vaginal biopsy for cervical cancer in 2010. 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 -Contacted radiation therapy for metastatic disease in her right middle lobe 2014. -Palliative radiation therapy to trachea and right lung September-October 2016 Previous chemotherapy: 1. Taxol 2. Neratinib Current treatment: Taxol weekly Past Medical History Past Medical History (Chronic Problems): Chronic Problems Bacteremia (Chronic) 02/22/16 Bld Cx preliminary Gram positive keyla Influenza A (Chronic) 02/22/16 Influenza A Endometrial cancer (Chronic) Status post hysterectomy, cystectomy and partial colectomy due to metastatic disease End-stage renal disease on hemodialysis (Chronic) History of hysterectomy for cancer (Chronic) History of nephrectomy (Chronic) Anemia of chronic renal failure, stage 5 (Chronic) Anemia of chronic renal failure (Chronic) Hypertension (Chronic) Obesity (BMI 30-39.9) (Chronic) History of colostomy (Chronic) History of ileal conduit (Chronic) Allergies No Known Allergies Allergy (Verified 01/14/18 19:37) Home Medications: Ambulatory Orders Medication Instructions Recorded Calcium Acetate [Phoslo Gel Cap] 2 cap PO TID 07/23/14 Docusate Sodium [Colace] 100 mg PO BID PRN 07/23/14 Folic Acid 1 mg PO DAILY@0800 07/23/14 Amlodipine [Norvasc] 10 mg PO DAILY 02/14/15 Lisinopril [Zestril] 20 mg PO BID 02/14/15 Ergocalciferol [Vitamin D] 50,000 unit PO TH 03/02/16 Famotidine [Pepcid AC] 20 mg PO BID PRN 03/02/16 Acetaminophen [Tylenol] 650 mg PO BID PRN 02/16/17 B Complex W-C No.20/Folic Acid 1 mg PO DAILY 06/07/17 [Nephrocaps Softgel] Ondansetron [Zofran] 8 mg PO Q8H PRN PRN 06/07/17 Albuterol Aerosols [Ventolin 2.5 mg INHALATION Q2H PRN PRN #120 06/11/17 Aerosols] vial.neb. Hydrocodone Bit/Homatrop Me-Br 1 dose PO 4X/DAY PRN PRN 10/17/17 [Hydrocodone-Homatropine Syrup] Ascorbic Acid [Vitamin C] 500 mg PO DAILY@0800 01/14/18 Surgical History: hysterectomy - for cervical cancer, - - Left nephrectomy for cancer with rt ileoconduit, Colostomy, Hysterectomy with BL RAHEEL, AVF RUE. [employer] History: endometrial cancer Smoking Status: Former smoker - Quit about 10-15 years ago; states never a big smoker Had cigarette smoking. Tobacco Use: Cigarettes - *Family History Paternal History Items: No pertinent history Maternal History Items: No pertinent history Review of Systems Constitutional: Reports: Anorexia, Chills, Fever, Night Sweats, Malaise, Weakness, Weight Change, Fatigue HEENT: Denies: Head Aches, Sinus Congestion, Sinus Drainage Cardiovascular: Reports: Light Headedness. Denies: Chest Pain, Palpitations Respiratory: Reports: Cough, Shortness of Breath, Shortness of breath at rest, Shortness of breath upon exertion. Denies: Sputum production Gastrointestinal: Reports: Nausea, Vomiting. Denies: Abdominal Pain Genitourinary: Reports: - - Very low urine output in urostomy bag. On hemodialysis. Denies: Dysuria, Frequency Musculoskeletal: Reports: Joint Pain, Joint stiffness, Joint Tenderness - Right hip, Muscle pain Skin: Denies: Rash, Wounds Neurological: Denies: Numbness, Tingling, Focal weakness Psychiatric: Reports: Anxiety. Denies: Depression, Homicidal Ideations, Suicidal Ideations Hematologic/ Lymphatic: Denies: Easy Bruising, Easy Bleeding VTE Information - Inpt Only VTE Present on Admission: No VTE Mechan Device Prophylaxis: None VTE Pharm Prophylaxis ordered?: Yes - Physical Exam General: Alert, Oriented x3, Cooperative HEENT: Atraumatic, PERRLA, EOMI, Normocephalic Oral: Dry Mucosa Neck: Supple, No JVD, Negative Carotid Bruits Lungs: Diminished - Air entry diminished in posterior half of right lung., Rales - Coarse rales present, Rhonchi - Rhonchi morning right lung, Short of Breath, Tachypneic Cardiovascular: Regular rate, Regular Rhythm, Normal S1, Normal S2, No murmurs Abdomen: Bowel Sounds Present, Soft, Non Tender, Non-Distended, - - Right lower abdomen ileal conduit with urobag. Left lower abdomen with colostomy bag Extremities: No edema, Capillary Refill Less than 3 Seconds Skin: No rashes, No breakdown Musculoskeletal: Arthritic Changes, Muscle Wasting, Tenderness - Right hip and right pelvic bone Neurological: Cranial nerves II-XII grossly intact, Deep Tendon Reflexes 2+/4 and Symmetrical, Neuro grossly intact, - - Muscle weakness in lower extremity, 4+/5 Psych/Mental Status: Normal Affect, Appropriate Vital Signs Temp Pulse Resp BP Pulse Ox 99.3 F H 98 17 128/62 H 97 01/14/18 21:48 01/14/18 21:48 01/14/18 21:48 01/14/18 21:48 01/14/18 21:48 Oxygen Flow Rate (L/min) 2 Oxygen Delivery Method Nasal Cannula Weight: 160 lb 4.417 oz Body Mass Index (BMI) 29.5 Microbiology Past 72 Hours 01/14/18 20:00 Influenza Types A,B Direct FA (SANDEEP) - Final Mucosa - Nasopharyngeal Laboratory Tests Past 24 Hrs 01/14/18 01/14/18 01/14/18 20:00 20:00 20:00 WBC 8.0 RBC 3.39 L Hgb 9.2 L Hct 29.6 L MCV 87.3 MCH 27.1 MCHC 31.1 L RDW 17.1 H RDW Differential 54.8 H Plt Count 177 MPV 9.6 Immature Gran % (Auto) 0.100 Neut % (Auto) 88.9 H Lymph % (Auto) 8.3 L Mckenzie % (Auto) 2.4 Eos % (Auto) 0.2 Baso % (Auto) 0.1 Absolute Neuts (auto) 7.1 Absolute Lymphs (auto) 0.67 L Total Counted Not Reportable Sodium 135 L Potassium 4.8 Chloride 96 L Carbon Dioxide 29.0 Anion Gap 10 BUN 59 H Creatinine 8.72 H* Estim Creat Clear Calc 5.77 Est GFR (MDRD) Af Amer 6 L Est GFR (MDRD) Non-Af 5 L BUN/Creatinine Ratio 6.8 L Glucose 106 Lactic Acid 1.0 Calcium 9.1 Total Bilirubin 0.40 AST 22 ALT 18 Alkaline Phosphatase 81 Total Protein 7.0 Albumin 2.8 L Globulin 4.2 Albumin/Globulin Ratio 0.7 L Assessment/Plan All Active Problems Shortness of breath (Acute) HCAP (healthcare-associated pneumonia) (Acute) Acute respiratory failure with hypoxemia (Acute) Metastatic uterine cancer (chronic) End-stage renal disease on HD (chronic) The patient is a 57 year old F with history of endometrial cancer with metastases to lung as per the patient status post hysterectomy, left nephrectomy-renal cell cancer, ileal conduit on right side for urine and colostomy on left side, ESRD on HD, T/T/S, being managed by [facility] management tech She came to ER with fever, cough, shortness of breath for last 4 days. Patient received her last course of chemotherapy a week ago. Patient also complained of pain over right thigh and right pelvic region. Chest x-ray in ED shows persisting airspace specifically in right mid to lower lung field probably associated with right lower lobe atelectasis. Previous left lung opacity has resolved. 1. Hospital- associated pneumonia versus viral infection. -Respiratory panel ordered. And blood and sputum culture pending. -ID consult -Continue meropenem pending blood and sputum culture results. -Right lower lobe consolidation could be related to radiation changes or cancer progression 2. Endometrial carcinoma with wide metastasis possible stage IV endometrial carcinoma: -Compare CT scan from our office and discussed possible hospice referral if there is progression of disease -We will discuss with Dr. Arteaga 3. Right thigh and pelvic pain, concern of metastasis or progression of disease in her pelvis -X-ray is negative order CT without contrast of the pelvis for the evaluation -Continue morphine as needed for pain. DVT prophylaxis: On heparin 5000 units subcutaneous 3 times daily Clinical Impression(s) from Imaging Studies Chest X-Ray 01/14/18 20:02 IMPRESSION: Persisting airspace opacities in the right mid to lower lung field. Resolution of the previously seen left-sided opacities. Microbiology Past 72 Hours 01/14/18 20:00 Mucosa - Nasopharyngeal Influenza Types A,B Direct FA ([facility]) - Final cc: Dr. Eric Arteaga; Dr. Joleen Reyes; Dr. Lawrence Dozier
--- NOTE | 2018-01-15 09:39 | PCM.HP.ID ---
Problem List (1) Endometrial cancer Status: Chronic Comment: Status post hysterectomy, cystectomy and partial colectomy due to metastatic disease Reason for Consult: fever Consulted by: Dr. Alvarenga History of Present Illness: The patient is a 57 year old F with endometrial cancer, on chemo, and h/o ESRD who presented yesterday with 4-5 days of nausea, vomiting, mild SOB, and R hip pain. No congestion, small amount of greenish sputum. Reportedly with URI as well. No issues with RUE fistula. No blood in ostomy. Fever up to 99 at home with some chills. Full ROS performed and neg except as noted above. - Medical History Past Medical History (Chronic Problems): Chronic Problems Bacteremia (Chronic) 02/22/16 Bld Cx preliminary Gram positive keyla Influenza A (Chronic) 02/22/16 Influenza A Endometrial cancer (Chronic) Status post hysterectomy, cystectomy and partial colectomy due to metastatic disease End-stage renal disease on hemodialysis (Chronic) History of hysterectomy for cancer (Chronic) History of nephrectomy (Chronic) Anemia of chronic renal failure, stage 5 (Chronic) Anemia of chronic renal failure (Chronic) Hypertension (Chronic) Obesity (BMI 30-39.9) (Chronic) History of colostomy (Chronic) History of ileal conduit (Chronic) Allergies/Adverse Reactions: Allergies No Known Allergies Allergy (Verified 01/14/18 19:37) Home Medications: Ambulatory Orders Medication Instructions Recorded Calcium Acetate [Phoslo Gel Cap] 2 cap PO TID 07/23/14 Docusate Sodium [Colace] 100 mg PO BID PRN 07/23/14 Folic Acid 1 mg PO DAILY@0800 07/23/14 Amlodipine [Norvasc] 10 mg PO DAILY 02/14/15 Lisinopril [Zestril] 20 mg PO BID 02/14/15 Ergocalciferol [Vitamin D] 50,000 unit PO TH 03/02/16 Famotidine [Pepcid AC] 20 mg PO BID PRN 03/02/16 Acetaminophen [Tylenol] 650 mg PO BID PRN 02/16/17 B Complex W-C No.20/Folic Acid 1 mg PO DAILY 06/07/17 [Nephrocaps Softgel] Ondansetron [Zofran] 8 mg PO Q8H PRN PRN 06/07/17 Albuterol Aerosols [Ventolin 2.5 mg INHALATION Q2H PRN PRN #120 06/11/17 Aerosols] vial.neb. Hydrocodone Bit/Homatrop Me-Br 1 dose PO 4X/DAY PRN PRN 10/17/17 [Hydrocodone-Homatropine Syrup] Ascorbic Acid [Vitamin C] 500 mg PO DAILY@0800 01/14/18 - Social History SMOKING STATUS:: Former smoker Vital Signs Temp Pulse Resp BP Pulse Ox 99.4 F H 92 19 H 125/60 H 98 01/15/18 05:00 01/15/18 07:48 01/15/18 07:25 01/15/18 05:00 01/15/18 07:25 Oxygen Flow Rate (L/min) 2 Oxygen Delivery Method Nasal Cannula Weight: 72.7 kg Body Mass Index (BMI) 29.5 Microbiology Past 72 Hours 01/14/18 20:00 Influenza Types A,B Direct FA (SANDEEP) - Final Mucosa - Nasopharyngeal Laboratory Tests Past 24 Hrs 01/14/18 01/14/18 01/14/18 20:00 20:00 20:00 WBC 8.0 RBC 3.39 L Hgb 9.2 L Hct 29.6 L MCV 87.3 MCH 27.1 MCHC 31.1 L RDW 17.1 H RDW Differential 54.8 H Plt Count 177 MPV 9.6 Immature Gran % (Auto) 0.100 Neut % (Auto) 88.9 H Lymph % (Auto) 8.3 L Shackelford % (Auto) 2.4 Eos % (Auto) 0.2 Baso % (Auto) 0.1 Absolute Neuts (auto) 7.1 Absolute Lymphs (auto) 0.67 L Total Counted Not Reportable D-Dimer Quant (PE/DVT) Sodium 135 L Potassium 4.8 Chloride 96 L Carbon Dioxide 29.0 Anion Gap 10 BUN 59 H Creatinine 8.72 H* Estim Creat Clear Calc 5.77 Est GFR (MDRD) Af Amer 6 L Est GFR (MDRD) Non-Af 5 L BUN/Creatinine Ratio 6.8 L Glucose 106 Lactic Acid 1.0 Calcium 9.1 Total Bilirubin 0.40 AST 22 ALT 18 Alkaline Phosphatase 81 Total Protein 7.0 Albumin 2.8 L Globulin 4.2 Albumin/Globulin Ratio 0.7 L 01/14/18 20:00 WBC RBC Hgb Hct MCV MCH MCHC RDW RDW Differential Plt Count MPV Immature Gran % (Auto) Neut % (Auto) Lymph % (Auto) Shackelford % (Auto) Eos % (Auto) Baso % (Auto) Absolute Neuts (auto) Absolute Lymphs (auto) Total Counted D-Dimer Quant (PE/DVT) 9.29 H* Sodium Potassium Chloride Carbon Dioxide Anion Gap BUN Creatinine Estim Creat Clear Calc Est GFR (MDRD) Af Amer Est GFR (MDRD) Non-Af BUN/Creatinine Ratio Glucose Lactic Acid Calcium Total Bilirubin AST ALT Alkaline Phosphatase Total Protein Albumin Globulin Albumin/Globulin Ratio - Other Studies Radiology: [] reviewed Other Studies: [] Route of nutrition/ use of supplements: [] Nutritional Intake: [] IV Site: [] Saavedra Catheter: [] - Physical Exam General: Alert, Oriented x3, Cooperative, No apparent distress HEENT: Atraumatic, PERRLA, EOMI Neck: Supple, No Nodes Lungs: Diminished Cardiovascular: Regular rate, Regular Rhythm, No murmurs Abdomen: Soft, Non Tender, Non-Distended Extremities: Edema Skin: No rashes IV Site: - - RUE with no redness or drainage Musculoskeletal: - - some R hip soreness Neurological: Cranial nerves II-XII grossly intact - Assessment/Plan Antibiotics: [] Assessment/Plan: [] No clear focal signs of infection. Some of her symptoms could be explained by progression of her cancer. Does have chronic lung changes and some new SOB and sputum. Will order sputum cx if she can provide a sample. With her chemo and ESRD, I think it is reasonable to cover empirically while cxs are pending. Cont vanc. Will narrow meropenem to cefepime. No fever, normal wbc here. Resp viral panel pcr pending. Will follow, thank you, d/w Dr. Alvarenga.
[2018-01-15] MEDS: guaiFENesin 1,200 MG Tablet 1200 MG PO ×2 (10:49→21:42)
[2018-01-15] MEDS: Famotidine 20 MG Tablet PO ×2 (10:50→21:42)
--- NOTE | 2018-01-15 11:11 | PCM.PROGNOTE ---
Subjective: Chief complaint: Follow-up after admission for probable healthcare associated pneumonia. Patient seen and examined. No acute events overnight. She still complaining of dry cough, no sputum production. Shortness of breath is chronic and has been getting slightly worse than usual. She denies fever or chills. She denied chest pain, palpitation, dizziness or lightheadedness. She complaint of right hip pain. She has been afebrile, blood pressure and heart rate are stable, pulse ox is 98% on 2 L. - Physical Exam General: Alert, Oriented x3, Cooperative, No apparent distress HEENT: Atraumatic, PERRLA, EOMI, Normocephalic Oral: Moist Mucosa, No Gingival or Mucosal Lesions/ Ulcerations Neck: Supple, No JVD, Negative Carotid Bruits, Trachea Midline, Thyroid Normal Size and Texture Lungs: No wheeze, Diminished, Rales, Rhonchi, Short of Breath, - - Markedly decreased breath sounds on the right lung, rhonchi, minimal shortness of breath. Cardiovascular: Regular rate, Regular Rhythm, Normal S1, Normal S2, PMI Normal Abdomen: Bowel Sounds Present, Soft, Non Tender, Non-Distended, No Hepato-splenomegaly, - - Right lower abdomen ileal conduit. Left lower abdomen colostomy. Extremities: No clubbing, No cyanosis, No edema Skin: No rashes, No breakdown Lymphatic: No Cervical, Supraclavicular, or Inguinal Adenopathy Neurological: Cranial nerves II-XII grossly intact, Motor Exam 5/5 strength throughout Psych/Mental Status: Normal Affect, Appropriate, Alert and oriented to time, place, person, mood and affect Vital Signs Temp Pulse Resp BP Pulse Ox 99.4 F H 92 19 H 125/60 H 98 01/15/18 05:00 01/15/18 07:48 01/15/18 07:25 01/15/18 05:00 01/15/18 07:25 Oxygen Flow Rate (L/min) 2 Oxygen Delivery Method Nasal Cannula Weight: 160 lb 4.417 oz Body Mass Index (BMI) 29.5 Intake and Output for Last 24 Hours 01/13/18 01/14/18 01/15/18 23:59 23:59 23:59 Intake Total 563 / 563 Balance 563 / 563 Microbiology Past 72 Hours 01/14/18 20:00 Influenza Types A,B Direct FA (SANDEEP) - Final Mucosa - Nasopharyngeal Laboratory Tests Past 24 Hrs 01/14/18 01/14/18 01/14/18 20:00 20:00 20:00 WBC 8.0 RBC 3.39 L Hgb 9.2 L Hct 29.6 L MCV 87.3 MCH 27.1 MCHC 31.1 L RDW 17.1 H RDW Differential 54.8 H Plt Count 177 MPV 9.6 Immature Gran % (Auto) 0.100 Neut % (Auto) 88.9 H Lymph % (Auto) 8.3 L [place] % (Auto) 2.4 Eos % (Auto) 0.2 Baso % (Auto) 0.1 Absolute Neuts (auto) 7.1 Absolute Lymphs (auto) 0.67 L Total Counted Not Reportable D-Dimer Quant (PE/DVT) Sodium 135 L Potassium 4.8 Chloride 96 L Carbon Dioxide 29.0 Anion Gap 10 BUN 59 H Creatinine 8.72 H* Estim Creat Clear Calc 5.77 Est GFR (MDRD) Af Amer 6 L Est GFR (MDRD) Non-Af 5 L BUN/Creatinine Ratio 6.8 L Glucose 106 Lactic Acid 1.0 Calcium 9.1 Total Bilirubin 0.40 AST 22 ALT 18 Alkaline Phosphatase 81 Total Protein 7.0 Albumin 2.8 L Globulin 4.2 Albumin/Globulin Ratio 0.7 L 01/14/18 20:00 WBC RBC Hgb Hct MCV MCH MCHC RDW RDW Differential Plt Count MPV Immature Gran % (Auto) Neut % (Auto) Lymph % (Auto) [place] % (Auto) Eos % (Auto) Baso % (Auto) Absolute Neuts (auto) Absolute Lymphs (auto) Total Counted D-Dimer Quant (PE/DVT) 9.29 H* Sodium Potassium Chloride Carbon Dioxide Anion Gap BUN Creatinine Estim Creat Clear Calc Est GFR (MDRD) Af Amer Est GFR (MDRD) Non-Af BUN/Creatinine Ratio Glucose Lactic Acid Calcium Total Bilirubin AST ALT Alkaline Phosphatase Total Protein Albumin Globulin Albumin/Globulin Ratio Clinical Impression(s) from Imaging Studies Chest X-Ray 01/14/18 20:02 IMPRESSION: Persisting airspace opacities in the right mid to lower lung field. Resolution of the previously seen left-sided opacities. Electronically Signed: Ernesto Murray, at 20:18 EST Tel , Service support , Hip/Pelvis X-Ray 01/14/18 23:38 IMPRESSION: 1. Advanced osteoarthritis of the right hip. 2. No fracture or acute disease. 3. Chronic lucent defect of the right inferior pubic ramus. Please see above comment. If warranted, further evaluation with whole body bone scan could be obtained. at 0134 Reported and signed by: Srikanth Acuña MD Electronically Signed: Srikanth Acuña, at 1:32 EST Tel , Service support , Chest CTA 01/15/18 00:48 IMPRESSION: 1. No evidence of pulmonary embolic disease. 2. Right infrahilar and right middle lobe 4.7 cm mass, increased in size compared to previous. Small right pleural effusion. 3. Right lung extensive consolidation with volume loss. Radiation therapy, if previously performed, could show similar findings. 4. Several subpleural and pleural-based left lung nodules compatible with metastases. Individualized dose optimization techniques were used for this CT. at 0402 Reported and signed by: Srikanth Acuña MD Electronically Signed: Srikanth Acuña, at 3:59 EST Tel , Service support , Medical Necessity - Tobacco Use Smoking Status: Former smoker - Quit about 10-15 years ago; states never a big smoker Had cigarette smoking. Tobacco Use: Cigarettes Assessment/Plan All Active Problems HCAP (healthcare-associated pneumonia) (Acute) This is a 57 years old female patient presented to the emergency room because of cough and fever and she was found to have right lung consolidation, right infrahilar and right middle lobe lung mass increased in size compared to previous CAT scans as well as small pleural effusion and she is being admitted as a case of probable healthcare associated pneumonia versus worsening lung metastasis from uterine cancer. #1 probable healthcare associated pneumonia: He is on IV cefepime and vancomycin. Her vital signs are stable, afebrile, no leukocytosis. CTA chest revealed no evidence of PE, revealed right lung extensive consolidation, right middle lobe lung mass which increased in size and there is a concern that her cancer is progressing. Nasal swab for influenza a and B were negative. Blood cultures pending. Infectious disease consulted. Plan to continue same treatment. #2 right hip pain: X-ray of the head revealed advanced osteoarthritis of the right hip, no fractures. Also, revealed chronic lucent defect of the right inferior pubic ramus. Plan for pain control. #3 elevated d-dimer: CTA chest was negative for acute PE. Venous Doppler of the both legs ordered. #4 metastatic endometrial cancer: With metastases to the bladder, left kidney and possible lung metastasis. Currently on chemotherapy. There is a concern that she has progression of her disease on CT scan chest. Dr. Alvarenga will discuss with Dr. Gil about the plan. #5 history of renal cell carcinoma: Status post left nephrectomy. #6 ESRD: On hemodialysis. Nephrology consulted, plan to continue hemodialysis according to his schedule. #7 hypertension: Blood pressure stable, continue lisinopril and Norvasc. #8 chronic anemia: Probably anemia of chronic disease secondary to cancer chemotherapy. Baseline hemoglobin around 8 g/dL. Today's hemoglobin is 9.2 g with Cipro, stable, at baseline. No evidence of active bleeding. #8 DVT prophylaxis: Subcu heparin. This note was generated with [employer] dictation software. It may contain incorrect words, spelling, and punctuation that were not noted in checking the note before signing. Code Visit Inpatient E&M: 86057 [facility] L3
--- NOTE | 2018-01-15 11:15 | PN_ITS ---
Subjective: Chief complaint: Follow-up after admission for probable healthcare associated pneumonia. Patient seen and examined. No acute events overnight. She still complaining of dry cough, no sputum production. Shortness of breath is chronic and has been getting slightly worse than usual. She denies fever or chills. She denied chest pain, palpitation, dizziness or lightheadedness. She complaint of right hip pain. She has been afebrile, blood pressure and heart rate are stable, pulse ox is 98% on 2 L. - Physical Exam General: Alert, Oriented x3, Cooperative, No apparent distress HEENT: Atraumatic, PERRLA, EOMI, Normocephalic Oral: Moist Mucosa, No Gingival or Mucosal Lesions/ Ulcerations Neck: Supple, No JVD, Negative Carotid Bruits, Trachea Midline, Thyroid Normal Size and Texture Lungs: No wheeze, Diminished, Rales, Rhonchi, Short of Breath, - - Markedly decreased breath sounds on the right lung, rhonchi, minimal shortness of breath. Cardiovascular: Regular rate, Regular Rhythm, Normal S1, Normal S2, PMI Normal Abdomen: Bowel Sounds Present, Soft, Non Tender, Non-Distended, No Hepato- splenomegaly, - - Right lower abdomen ileal conduit. Left lower abdomen colostomy. Extremities: No clubbing, No cyanosis, No edema Skin: No rashes, No breakdown Lymphatic: No Cervical, Supraclavicular, or Inguinal Adenopathy Neurological: Cranial nerves II-XII grossly intact, Motor Exam 5/5 strength throughout Psych/Mental Status: Normal Affect, Appropriate, Alert and oriented to time, place, person, mood and affect Vital Signs Temp Pulse Resp BP Pulse Ox 99.4 F H 92 19 H 125/60 H 98 01/15/18 05:00 01/15/18 07:48 01/15/18 07:25 01/15/18 05:00 01/15/18 07:25 Oxygen Flow Rate (L/min) 2 Oxygen Delivery Method Nasal Cannula Weight: 160 lb 4.417 oz Body Mass Index (BMI) 29.5 Intake and Output for Last 24 Hours 01/13/18 01/14/18 01/15/18 23:59 23:59 23:59 Intake Total 563 / 563 Balance 563 / 563 Microbiology Past 72 Hours 01/14/18 20:00 Influenza Types A,B Direct FA (SANDEEP) - Final Mucosa - Nasopharyngeal Laboratory Tests Past 24 Hrs 01/14/18 01/14/18 01/14/18 20:00 20:00 20:00 WBC 8.0 RBC 3.39 L Hgb 9.2 L Hct 29.6 L MCV 87.3 MCH 27.1 MCHC 31.1 L RDW 17.1 H RDW Differential 54.8 H Plt Count 177 MPV 9.6 Immature Gran % (Auto) 0.100 Neut % (Auto) 88.9 H Lymph % (Auto) 8.3 L [place] % (Auto) 2.4 Eos % (Auto) 0.2 Baso % (Auto) 0.1 Absolute Neuts (auto) 7.1 Absolute Lymphs (auto) 0.67 L Total Counted Not Reportable D-Dimer Quant (PE/DVT) Sodium 135 L Potassium 4.8 Chloride 96 L Carbon Dioxide 29.0 Anion Gap 10 BUN 59 H Creatinine 8.72 H* Estim Creat Clear Calc 5.77 Est GFR (MDRD) Af Amer 6 L Est GFR (MDRD) Non-Af 5 L BUN/Creatinine Ratio 6.8 L Glucose 106 Lactic Acid 1.0 Calcium 9.1 Total Bilirubin 0.40 AST 22 ALT 18 Alkaline Phosphatase 81 Total Protein 7.0 Albumin 2.8 L Globulin 4.2 Albumin/Globulin Ratio 0.7 L 01/14/18 20:00 WBC RBC Hgb Hct MCV MCH MCHC RDW RDW Differential Plt Count MPV Immature Gran % (Auto) Neut % (Auto) Lymph % (Auto) [place] % (Auto) Eos % (Auto) Baso % (Auto) Absolute Neuts (auto) Absolute Lymphs (auto) Total Counted D-Dimer Quant (PE/DVT) 9.29 H* Sodium Potassium Chloride Carbon Dioxide Anion Gap BUN Creatinine Estim Creat Clear Calc Est GFR (MDRD) Af Amer Est GFR (MDRD) Non-Af BUN/Creatinine Ratio Glucose Lactic Acid Calcium Total Bilirubin AST ALT Alkaline Phosphatase Total Protein Albumin Globulin Albumin/Globulin Ratio Clinical Impression(s) from Imaging Studies Chest X-Ray 01/14/18 20:02 IMPRESSION: Persisting airspace opacities in the right mid to lower lung field. Resolution of the previously seen left-sided opacities. Electronically Signed: Ernesto Murray, at 20:18 EST Tel , Service support , Hip/Pelvis X-Ray 01/14/18 23:38 IMPRESSION: 1. Advanced osteoarthritis of the right hip. 2. No fracture or acute disease. 3. Chronic lucent defect of the right inferior pubic ramus. Please see above comment. If warranted, further evaluation with whole body bone scan could be obtained. at 0134 Reported and signed by: Srikanth Acuña MD Electronically Signed: Srikanth Acuña, at 1:32 EST Tel , Service support , Chest CTA 01/15/18 00:48 IMPRESSION: 1. No evidence of pulmonary embolic disease. 2. Right infrahilar and right middle lobe 4.7 cm mass, increased in size compared to previous. Small right pleural effusion. 3. Right lung extensive consolidation with volume loss. Radiation therapy, if previously performed, could show similar findings. 4. Several subpleural and pleural-based left lung nodules compatible with metastases. Individualized dose optimization techniques were used for this CT. at 0402 Reported and signed by: Srikanth Acuña MD Electronically Signed: Srikanth Acuña, at 3:59 EST Tel , Service support , Medical Necessity - Tobacco Use Smoking Status: Former smoker - Quit about 10-15 years ago; states never a big smoker Had cigarette smoking. Tobacco Use: Cigarettes Assessment/Plan All Active Problems HCAP (healthcare-associated pneumonia) (Acute) This is a 57 years old female patient presented to the emergency room because of cough and fever and she was found to have right lung consolidation, right infrahilar and right middle lobe lung mass increased in size compared to previous CAT scans as well as small pleural effusion and she is being admitted as a case of probable healthcare associated pneumonia versus worsening lung metastasis from uterine cancer. #1 probable healthcare associated pneumonia: He is on IV cefepime and vancomycin. Her vital signs are stable, afebrile, no leukocytosis. CTA chest revealed no evidence of PE, revealed right lung extensive consolidation, right middle lobe lung mass which increased in size and there is a concern that her cancer is progressing. Nasal swab for influenza a and B were negative. Blood cultures pending. Infectious disease consulted. Plan to continue same treatment. #2 right hip pain: X-ray of the head revealed advanced osteoarthritis of the right hip, no fractures. Also, revealed chronic lucent defect of the right inferior pubic ramus. Plan for pain control. #3 elevated d-dimer: CTA chest was negative for acute PE. Venous Doppler of the both legs ordered. #4 metastatic endometrial cancer: With metastases to the bladder, left kidney and possible lung metastasis. Currently on chemotherapy. There is a concern that she has progression of her disease on CT scan chest. Dr. Alvarenga will discuss with Dr. Gil about the plan. #5 history of renal cell carcinoma: Status post left nephrectomy. #6 ESRD: On hemodialysis. Nephrology consulted, plan to continue hemodialysis according to his schedule. #7 hypertension: Blood pressure stable, continue lisinopril and Norvasc. #8 chronic anemia: Probably anemia of chronic disease secondary to cancer chemotherapy. Baseline hemoglobin around 8 g/dL. Today's hemoglobin is 9.2 g with Cipro, stable, at baseline. No evidence of active bleeding. #8 DVT prophylaxis: Subcu heparin. This note was generated with [employer] dictation software. It may contain incorrect words, spelling, and punctuation that were not noted in checking the note before signing. Code Visit Inpatient E&M: 99440 [facility] L3
--- NOTE | 2018-01-15 12:45 | CASEMGMT ---
RN CM Face to Face with patient for initial transition planning/care coordination assessment. RN CM introduced self and role at [facility]. Patient lying in bed, alert and oriented. Patient willing to participate in assessment and is able to answer all questions appropriately. Care providers, pharmacy, and demographics verified. Patient wishes to discharge home, denies need for home health at this time. Patient states he has no further needs or concerns at this time. CM to follow for discharge planning needs that may arise. PCP: Jacoby Specialists: Jenni, oncologist; Suzette, physician office clin asst Preferred Pharmacy: [facility] Insurance: [facility] Prescription Benefit: [facility] Living Will/HPOA: Yes, Bharathi Nelson LNOK: Living Arrangements: Paient lives with in mobile home with 2-3 steps to enter home. Transportation: DME/HHC: Patient has cane, walker, oxygen and nebulizer with [facility]. Disposition Plan: Patient to discharge home with family support and follow-up plans in place. Taylor RICEN, RN, CM
--- NOTE | 2018-01-15 17:17 | CON.PCM_ITS ---
Problem List (1) End-stage renal disease on hemodialysis Status: Chronic Consultation - Renal PCP/ Referring MD: Requesting physician: [] Primary care physician: Lawrence Dozier - History of Present Illness History of Present Illness: The patient is a 57 year old F [facility] metastatic endometrial CA, ESRD on TTS. Pt is currently on chemotherapy weekly for 3 weeks and off for week Pt presented with fever cough and SOB. Pt was found to have right side pneumonia. Pt is being treated with IV Abx Pt goes to [facility] HD unit . Dr. King is the primary manager client Pt was seen today during HD session. She is tolerating the session well ROS: 12 systems review is negative except what mentioned in HPI [] - Allergies Allergies: Allergies No Known Allergies Allergy (Verified 01/14/18 19:37) - Current Medications Current Medications: Current Medications Acetaminophen (Tylenol) 650 mg PO Q4H PRN PRN PRN Reason: FEVER Acetaminophen (Tylenol) 650 mg PO Q4H PRN PRN PRN Reason: Mild-Moderate Pain/Headache Al Hydroxide/Mg Hydroxide (Mylanta Ii) 30 ml PO Q6H PRN PRN PRN Reason: Gastric Burning Albuterol Sulfate (Ventolin Aerosols) 2.5 mg INHALATION Q2H PRN PRN PRN Reason: SHORTNESS OF BREATH Albuterol/Ipratropium (Duoneb) 3 ml INHALATION Q6H.RT [facility] Last Admin: 01/15/18 13:03 Dose: 3 ml Amlodipine Besylate (Norvasc) 10 mg PO DAILY [facility] Calcium Acetate (Phoslo Gel Cap) 1,334 mg PO TIDCM [facility] Docusate Sodium (Colace) 100 mg PO BID PRN PRN Reason: Constipation Famotidine (Pepcid) 20 mg PO BID [facility] Last Admin: 01/15/18 10:50 Dose: 20 mg Folic Acid (Folic Acid) 1 mg PO DAILY@0800 [facility] Guaifenesin (Mucinex) 1,200 mg PO BID [facility] Last Admin: 01/15/18 10:49 Dose: 1,200 mg Heparin Sodium (Porcine) (Heparin Na) 5,000 unit SC Q8 [facility] Last Admin: 01/15/18 14:16 Dose: Not Given Vancomycin IV Pharmacy to Dose (1 ea/ Sodium Chloride) 500 mls @ 250 mls/hr IV DAILY PRN; Protocol Cefepime HCl 1 gm/ Sodium (Chloride) 50 mls @ 100 mls/hr IV Q24 [facility] Last Admin: 01/15/18 10:49 Dose: 100 mls/hr Lisinopril (Zestril) 20 mg PO BID [facility] Morphine Sulfate () 1 - 2 mg IV Q4H PRN PRN PRN Reason: SEVERE PAIN (6-10/10) Multivit/Ca Carb/B Cmplx/FA/Prenat (Nephrocaps, Renaphro) 1 capsule PO DAILY [facility] Ondansetron HCl (Zofran) 4 mg IV Q6H PRN PRN PRN Reason: NAUSEA Oxycodone HCl (Oxyir) 5 mg PO Q4H PRN PRN PRN Reason: Moderate Pain (pain scale 4-5) Last Admin: 01/15/18 06:20 Dose: 5 mg Polyethylene Glycol (Miralax) 17 gm PO DAILY [facility] Last Admin: 01/15/18 10:49 Dose: Not Given Sodium Chloride () 5 - 30 ml IV UD PRN PRN Reason: SALINE FLUSH Vancomycin HCl (Vancomycin Renal/Hd Dosing) 1 unit MISCELL. TuThSa@0800 [facility] Last Admin: 01/15/18 09:40 Dose: Not Given Vancomycin HCl () 1 lab MISCELL. TuThSa@0600 [facility] Zolpidem Tartrate (Ambien (Generic)) 5 mg PO QHS PRN PRN PRN Reason: SLEEP - Past Medical History Past Medical History (Chronic Problems): Chronic Problems Endometrial cancer (Chronic) Status post hysterectomy, cystectomy and partial colectomy due to metastatic disease End-stage renal disease on hemodialysis (Chronic) History of hysterectomy for cancer (Chronic) History of nephrectomy (Chronic) Anemia of chronic renal failure, stage 5 (Chronic) Anemia of chronic renal failure (Chronic) Hypertension (Chronic) Obesity (BMI 30-39.9) (Chronic) History of colostomy (Chronic) History of ileal conduit (Chronic) - Past Surgical History Surgical History: hysterectomy - for cervical cancer, - - Left nephrectomy for cancer with rt ileoconduit, Colostomy, Hysterectomy with BL RAHEEL, AVF RUE. - Social History Smoking Status: Former smoker - Quit about 10-15 years ago; states never a big smoker Had cigarette smoking. - Family History Paternal History Items: No pertinent history Maternal History Items: No pertinent history - Physical Exam General: Alert, Oriented x3 HEENT: Atraumatic Oral: Moist Mucosa Neck: Supple, No JVD Lungs: Clear to auscultation, Normal air movement, No rhonchi, No wheeze Cardiovascular: Regular rate, Regular Rhythm, Normal S1, Normal S2 Abdomen: Bowel Sounds Present, Soft, Non Tender, Non-Distended Extremities: No clubbing, No cyanosis, No edema Skin: No rashes Musculoskeletal: No Tenderness to Palpation of Joints or Extremities Lymphatic: No Cervical, Supraclavicular, or Inguinal Adenopathy Neurological: Cranial nerves II-XII grossly intact, Neuro grossly intact Psych/Mental Status: Normal Affect Vital Signs Temp Pulse Resp BP Pulse Ox 98.7 F 86 20 H 124/69 H 96 01/15/18 11:00 01/15/18 15:50 01/15/18 13:03 01/15/18 11:00 01/15/18 11:00 Oxygen Flow Rate (L/min) 2 Oxygen Delivery Method Nasal Cannula Weight: 72.7 kg Body Mass Index (BMI) 29.5 Intake and Output for Last 24 Hours 01/13/18 01/14/18 01/15/18 23:59 23:59 23:59 Intake Total 1203 / 1203 Output Total 2 / 2 Balance 1201 / 1201 Microbiology Past 72 Hours 01/14/18 20:50 Respiratory Panel (PCR) - Final Mucosa - Throat 01/14/18 20:00 Influenza Types A,B Direct FA (SANDEEP) - Final Mucosa - Nasopharyngeal Laboratory Tests Past 24 Hrs 01/14/18 01/14/18 01/14/18 20:00 20:00 20:00 WBC 8.0 RBC 3.39 L Hgb 9.2 L Hct 29.6 L MCV 87.3 MCH 27.1 MCHC 31.1 L RDW 17.1 H RDW Differential 54.8 H Plt Count 177 MPV 9.6 Immature Gran % (Auto) 0.100 Neut % (Auto) 88.9 H Lymph % (Auto) 8.3 L [place] % (Auto) 2.4 Eos % (Auto) 0.2 Baso % (Auto) 0.1 Absolute Neuts (auto) 7.1 Absolute Lymphs (auto) 0.67 L Total Counted Not Reportable D-Dimer Quant (PE/DVT) Sodium 135 L Potassium 4.8 Chloride 96 L Carbon Dioxide 29.0 Anion Gap 10 BUN 59 H Creatinine 8.72 H* Estim Creat Clear Calc 5.77 Est GFR (MDRD) Af Amer 6 L Est GFR (MDRD) Non-Af 5 L BUN/Creatinine Ratio 6.8 L Glucose 106 Lactic Acid 1.0 Calcium 9.1 Total Bilirubin 0.40 AST 22 ALT 18 Alkaline Phosphatase 81 Total Protein 7.0 Albumin 2.8 L Globulin 4.2 Albumin/Globulin Ratio 0.7 L 01/14/18 20:00 WBC RBC Hgb Hct MCV MCH MCHC RDW RDW Differential Plt Count MPV Immature Gran % (Auto) Neut % (Auto) Lymph % (Auto) [place] % (Auto) Eos % (Auto) Baso % (Auto) Absolute Neuts (auto) Absolute Lymphs (auto) Total Counted D-Dimer Quant (PE/DVT) 9.29 H* Sodium Potassium Chloride Carbon Dioxide Anion Gap BUN Creatinine Estim Creat Clear Calc Est GFR (MDRD) Af Amer Est GFR (MDRD) Non-Af BUN/Creatinine Ratio Glucose Lactic Acid Calcium Total Bilirubin AST ALT Alkaline Phosphatase Total Protein Albumin Globulin Albumin/Globulin Ratio Assessment/Plan All Active Problems HCAP (healthcare-associated pneumonia) (Acute) 1- ESRD on MWF HD schedule. Pt goes to [facility] HD unit . Dr. King is the primary manager client HD session today: BQ 400 DQ 600 UF 2.4 L HD access is right UE AVF 2- HTN: BP is well controlled. continue the same BP meds 3- Anemia: Hgb is 9.2 .I will hold giving GREG in patient with active cancer monitor H and H 4- BMD:continue Ca acetate with meals 5- Sepsis due to pneumonia On cefepime and vancomycin. cefepime is appropriately dosed for ESRD patient on HD Renal team will continue to follow CONSTANTINO MONROY MD
--- NOTE | 2018-01-15 18:10 | DIALYSIS ---
hemodialysis completed x 3.5 hrs. 2K bath. UF 1700ml. Access via [facility] AVF. pt stable post tx. See HD flowsheet for details
[2018-01-15] MEDS: Calcium Acetate 667 MG Capsule 1334 MG PO (18:36)
[2018-01-15] MEDS: Vancomycin IV 500 MG/100 ML BAG 100 MG IV (18:36)
[2018-01-15] MEDS: Acetaminophen 325 MG Tablet 650 MG PO (23:43)
[2018-01-16] VITALS (18 sets, daily range): BP systolic 95–137; BP diastolic 47–62; PULSE 72–94; RESP 16–20; TEMP 36.4–37.1; O2SAT 92–100
[2018-01-16] MEDS: Heparin Injection (Vial) 5,000 UNIT/ML VIAL 5000 UNIT SC ×3 (05:19→21:00)
[2018-01-16 06:27] LABS: Anion Gap 9 (5-15); BUN 26 mg/dL (7-18); BUN/Creat Ratio 5.2 RATIO (10-20); Chloride 96 mmol/L (98-107); Creatinine, Serum 5.03 mg/dL (0.55-1.02); EST Glomerular Filtration Rate 10 mL/min (>60); Est Glom Filt Rate - Afr Amer 11 mL/min (>60); Estimated Creatinine Clearance 9.54 ml/min; Glucose 76 mg/dL (74-106); Potassium 3.7 mmol/L (3.5-5.1); Sodium Level 136 mmol/L (136-145)
[2018-01-16 07:07] LABS: Absolute Lymphocyte Count 0.51 X10^3/ul (0.83-4.51); Basophil# 0.01 X10^3/uL; Basophil% 0.3 % (0-1); Eosinophil# 0.05 X10^3/uL; Eosinophils% 1.3 % (0-5); Hematocrit 23.4 % (37-47); Hemoglobin 7.2 g/dl (12.0-15.0); Lymphocyte # 0.51 X10^3/ul (4.0); Mean Corp Hgb Conc 30.8 g/gl (32-36); Mean Corpuscular Volume 87.6 fL (81-99); Mean Platelet Vol. 10.4 fl (6.2-12.0); Monocyte# 0.36 X10^3/uL; Monocyte% 9.2 % (0-10); Neutrophil # 2.98 X10^3/uL (2.7-7.7); Neutrophil % 75.7 % (47-70); Platelet Count 150 K/mm3 (150-450); RBC Distribution Width CV 17.3 % (11.6-14.6); RBC Distribution Width SD 55.1 fl (35.1-43.9); Red Blood Count 2.67 M/mm3 (4.2-5.4); White Blood Count 3.9 K/mm3 (4.4-11.0)
[2018-01-16 07:11] LABS: Differential Indicated SCAN CRITERIA MET; POSITIVE COUNT NO; POSITIVE DIFFERENTIAL YES; POSITIVE MORPHOLOGY NO
[2018-01-16] MEDS: Ipratropium/Albuterol Sulfate 3 ML AMPUL.NEB INHALATION ×3 (07:18→19:56)
--- NOTE | 2018-01-16 08:05 | RAD_ITS ---
STUDY: X-RAY CHEST REASON FOR EXAM: Female, 57 years old. The patient has a history of endometrial carcinoma. TECHNIQUE: AP and lateral views of the chest. COMPARISON: Comparison is made with prior chest radiograph dated January 14, 2018. FINDINGS: EKG electrodes are seen. Stable elevation of the right hemidiaphragm with volume loss in the right hemidiaphragm. Stable 4 cm x 4.5 cm inhomogeneous nodule in the right lung base. There is evidence of a airspace disease in the right upper and right mid lung. This is unchanged. The left lung is clear. Normal size heart. Normal mediastinum and nacho. Normal visualized pulmonary arteries. Normal visualized aortic arch and descending thoracic aorta. Normal visualized thoracic spine. Normal visualized ribs, clavicles, and shoulders. There is no demonstrated abnormality of the visualized soft tissue structures of the upper abdomen. RAD/Chest PA and Lateral IMPRESSION: Stable examination. Stable right lower lobe pulmonary nodule with right upper lobe and in the right midlung airspace disease. Electronically Signed: Jose De Jesus Collado MD at 9:25 EST Tel [phone], Service support ,
--- NOTE | 2018-01-16 08:23 | PCM.PROGNOTE ---
Subjective: Patient has minimal cough, shortness of breath improve after dialysis. She is no longer requiring oxygen. Planning for blood transfusion today with dialysis. Patient remained afebrile on broad-spectrum antibiotic. Right hip pain secondary to arthritis. 06/28. - Physical Exam General: Alert, Oriented x3, No apparent distress HEENT: Atraumatic, PERRLA, EOMI, - - + pallor Oral: Moist Mucosa, No Gingival or Mucosal Lesions/ Ulcerations Neck: Supple, No JVD Lungs: Clear to auscultation Cardiovascular: Regular rate, Regular Rhythm, Normal S1, Normal S2, No murmurs Abdomen: Bowel Sounds Present, Soft, Non Tender, Non-Distended Extremities: No clubbing, No cyanosis, No edema Skin: No rashes, No breakdown Lymphatic: No Cervical, Supraclavicular, or Inguinal Adenopathy Neurological: Neuro grossly intact Psych/Mental Status: Normal Affect Vital Signs Temp Pulse Resp BP Pulse Ox 97.6 F L 78 18 95/47 L 100 01/16/18 03:45 01/16/18 07:19 01/16/18 07:19 01/16/18 03:45 01/16/18 07:19 Oxygen Flow Rate (L/min) 2 Oxygen Delivery Method Nasal Cannula Weight: 160 lb 4.417 oz Body Mass Index (BMI) 29.5 Intake and Output for Last 24 Hours 01/14/18 01/15/18 01/16/18 23:59 23:59 23:59 Intake Total 1443 / 1443 574 / 574 Output Total 1702 / 1702 0 / 0 Balance -259 / -259 574 / 574 Microbiology Past 72 Hours 01/14/18 20:50 Respiratory Panel (PCR) - Final Mucosa - Throat 01/14/18 20:00 Influenza Types A,B Direct FA (SANDEEP) - Final Mucosa - Nasopharyngeal Laboratory Tests Past 24 Hrs 01/16/18 01/16/18 05:04 05:04 WBC 3.9 L RBC 2.67 L Hgb 7.2 L Hct 23.4 L MCV 87.6 MCH 27.0 MCHC 30.8 L RDW 17.3 H RDW Differential 55.1 H Plt Count 150 MPV 10.4 Immature Gran % (Auto) 0.500 Neut % (Auto) 75.7 H Lymph % (Auto) 13.0 L [place] % (Auto) 9.2 Eos % (Auto) 1.3 Baso % (Auto) 0.3 Absolute Neuts (auto) 3.0 Absolute Lymphs (auto) 0.51 L Total Counted Not Reportable Sodium 136 Potassium 3.7 Chloride 96 L Carbon Dioxide 31.0 Anion Gap 9 BUN 26 H Creatinine 5.03 H Estim Creat Clear Calc 9.54 Est GFR (MDRD) Af Amer 11 L Est GFR (MDRD) Non-Af 10 L BUN/Creatinine Ratio 5.2 L Glucose 76 Calcium 8.0 L Medical Necessity - Tobacco Use Smoking Status: Former smoker - Quit about 10-15 years ago; states never a big smoker Had cigarette smoking. Tobacco Use: Cigarettes Assessment/Plan All Active Problems HCAP (healthcare-associated pneumonia) (Acute) 1. Hospital- associated pneumonia versus viral infection. -Clinically improved, afebrile since admission. -Respiratory panel ordered, and blood and sputum culture are pending. -ID consult -Continue antibiotics pending blood and sputum culture results. -Right lower lobe consolidation could be related to radiation changes or cancer progression 2. Endometrial carcinoma with wide metastasis possible stage IV endometrial carcinoma: -Compare CT scan from our office and discussed possible hospice referral if there is progression of disease -Will discuss with Dr. Arteaga & follow-up in office next week. -Cancel chemotherapy until the above problem is resolved 3. Right thigh and pelvic pain, concern of metastasis or progression of disease in her pelvis -Tylenol scheduled dosing as needed for pain. -Continue morphine as needed for pain. 4. Anemia secondary to chronic renal failure and chemotherapy -Type and cross for possible 1 unit blood transfusion today; or 2 unit tomorrow with dialysis cc: Dr. Eric Arteaga; Dr. Leah Nicole
--- NOTE | 2018-01-16 08:27 | PN_ITS ---
Subjective: Chief complaint: Follow-up after admission for probable healthcare associated pneumonia, developed acute on chronic anemia requiring blood transfusion. Patient seen and examined. No acute events overnight. Today, she states that her breathing is stable, still complaining of cough with no sputum production. She denied any bleeding from body orifices. She denies abdominal pain, nausea vomiting. No fever or chills. Her vital signs are stable. - Physical Exam General: Alert, Oriented x3, Cooperative HEENT: Atraumatic, PERRLA, EOMI, Normocephalic Oral: Moist Mucosa, No Gingival or Mucosal Lesions/ Ulcerations Neck: Supple, No JVD, Negative Carotid Bruits, Trachea Midline, Thyroid Normal Size and Texture Lungs: Clear to auscultation, No wheeze, No rales, Diminished, Rhonchi Cardiovascular: Regular rate, Regular Rhythm, Normal S1, Normal S2, PMI Normal Abdomen: Bowel Sounds Present, Soft, Non Tender, Non-Distended, No Hepato- splenomegaly, - - Right lower abdomen ileal conduit. Left lower abdomen colostomy. Extremities: No clubbing, No cyanosis, No edema Skin: No rashes, No breakdown Lymphatic: No Cervical, Supraclavicular, or Inguinal Adenopathy Neurological: Cranial nerves II-XII grossly intact, Neuro grossly intact Psych/Mental Status: Normal Affect, Appropriate, Alert and oriented to time, place, person, mood and affect Vital Signs Temp Pulse Resp BP Pulse Ox 97.6 F L 78 18 95/47 L 100 01/16/18 03:45 01/16/18 07:19 01/16/18 07:19 01/16/18 03:45 01/16/18 07:19 Oxygen Flow Rate (L/min) 2 Oxygen Delivery Method Nasal Cannula Weight: 160 lb 4.417 oz Body Mass Index (BMI) 29.5 Intake and Output for Last 24 Hours 01/14/18 01/15/18 01/16/18 23:59 23:59 23:59 Intake Total 1443 / 1443 574 / 574 Output Total 1702 / 1702 0 / 0 Balance -259 / -259 574 / 574 Microbiology Past 72 Hours 01/14/18 20:50 Respiratory Panel (PCR) - Final Mucosa - Throat 01/14/18 20:00 Influenza Types A,B Direct FA (SANDEEP) - Final Mucosa - Nasopharyngeal Laboratory Tests Past 24 Hrs 01/16/18 01/16/18 05:04 05:04 WBC 3.9 L RBC 2.67 L Hgb 7.2 L Hct 23.4 L MCV 87.6 MCH 27.0 MCHC 30.8 L RDW 17.3 H RDW Differential 55.1 H Plt Count 150 MPV 10.4 Immature Gran % (Auto) 0.500 Neut % (Auto) 75.7 H Lymph % (Auto) 13.0 L [place] % (Auto) 9.2 Eos % (Auto) 1.3 Baso % (Auto) 0.3 Absolute Neuts (auto) 3.0 Absolute Lymphs (auto) 0.51 L Total Counted Not Reportable Sodium 136 Potassium 3.7 Chloride 96 L Carbon Dioxide 31.0 Anion Gap 9 BUN 26 H Creatinine 5.03 H Estim Creat Clear Calc 9.54 Est GFR (MDRD) Af Amer 11 L Est GFR (MDRD) Non-Af 10 L BUN/Creatinine Ratio 5.2 L Glucose 76 Calcium 8.0 L Medical Necessity - Tobacco Use Smoking Status: Former smoker - Quit about 10-15 years ago; states never a big smoker Had cigarette smoking. Tobacco Use: Cigarettes Assessment/Plan All Active Problems HCAP (healthcare-associated pneumonia) (Acute) This is a 57 years old female patient presented to the emergency room because of cough and fever and she was found to have right lung consolidation, right infrahilar and right middle lobe lung mass increased in size compared to previous CAT scans as well as small pleural effusion and she is being admitted as a case of probable healthcare associated pneumonia versus worsening lung metastasis from uterine cancer. She developed acute on chronic anemia requiring blood transfusion without evidence of acute blood loss. #1 probable healthcare associated pneumonia: Remained on IV cefepime and vancomycin. Her vital signs are stable, afebrile, no leukocytosis. CTA chest revealed no evidence of PE, revealed right lung extensive consolidation, right middle lobe lung mass which increased in size and there is a concern that her cancer is progressing. Nasal swab for influenza a and B were negative. Blood cultures pending. Plan to continue same treatment. #2 acute on chronic chronic anemia: Probably anemia of chronic disease secondary to cancer chemotherapy. Baseline hemoglobin around 8 g/dL. Today's hemoglobin is down to 7.2 g/dL. No evidence of active bleeding. Plan to transfuse 1 unit of packed RBCs, repeat H&H later today, repeat CBC tomorrow morning. #3 right hip pain: X-ray of the head revealed advanced osteoarthritis of the right hip, no fractures. Also, revealed chronic lucent defect of the right inferior pubic ramus. Pain is controlled with current pain medication. #4 elevated d-dimer: CTA chest was negative for acute PE. Venous Doppler of the both legs done, awaiting the results. #5 metastatic endometrial cancer: With metastases to the bladder, left kidney and possible lung metastasis. Currently on chemotherapy. There is a concern that she has progression of her disease on CT scan chest. Discussed with Dr. Alvarenga, awaiting their recommendations for today. #6 history of renal cell carcinoma: Status post left nephrectomy. #7 ESRD: On hemodialysis, received hemodialysis yesterday. BUN and creatinine improved, potassium is normal. #8 hypertension: Blood pressure stable, continue lisinopril and Norvasc. #9 DVT prophylaxis: Subcu heparin. This note was generated with [employer] dictation software. It may contain incorrect words, spelling, and punctuation that were not noted in checking the note before signing. Code Visit Inpatient E&M: 85748 Subs Hosp L2
[2018-01-16] MEDS: Calcium Acetate 667 MG Capsule 1334 MG PO ×2 (10:58→13:39)
[2018-01-16] MEDS: Folic Acid 1 MG Tablet PO (10:58)
[2018-01-16] MEDS: 0.9% NaCl Peripheral Flush Adult/Peds IV ×2 (10:58→17:10)
[2018-01-16] MEDS: Famotidine 20 MG Tablet PO ×2 (10:59→21:02)
[2018-01-16] MEDS: Folic Acid/Vitamin B Comp W-C 1 Capsule 1 CAP PO (10:59)
[2018-01-16] MEDS: guaiFENesin 1,200 MG Tablet 1200 MG PO ×2 (10:59→21:02)
[2018-01-16] MEDS: amLODIPine 10 MG Tablet PO (10:59)
[2018-01-16] MEDS: Lisinopril 20 MG Tablet PO ×2 (10:59→21:02)
[2018-01-16 12:58] LABS: Bacteria 0 SEEN /hpf (None Seen); Mucous, Urine 0 SEEN /hpf (<or=2+); Squamous Epithelial Cells - UA 0 SEEN /hpf (5-10)
[2018-01-16 13:01] LABS: Color, Urine Yellow (Yellow); Glucose, Dipstick Normal (Normal); Ketone-Dipstick Negative (Negative); Leukocyte Esterase-Dipstick 25 /ul (Negative); Nitrite-Dipstick Negative (Negative); Occult Blood-Urine 250 /ul (Negative); Protein-Dipstick 100 mg/dl (Negative); Specific Gravity, Urine 1.015 (1.002-1.030); Urine Bilirubin Dipstick Negative (Negative); Urine Clarity Clear (Clear); Urine Urobilinogen Normal (Normal)
[2018-01-16 13:11] LABS: Red Blood Cells-Urine 0-5 SEEN /hpf (0-5)
[2018-01-16 13:12] LABS: White Blood Cells 0-5 SEEN /hpf (0-5)
--- NOTE | 2018-01-16 13:17 | NURSING ---
student charting, reviewed by this rn.
--- NOTE | 2018-01-16 14:11 | PCM.PN.ID ---
Subjective: Feeling better, no fever, still some R hip soreness, dry cough and SOB. - Physical Exam General: Alert, Cooperative, No apparent distress Lungs: Diminished Cardiovascular: Regular rate, Regular Rhythm Abdomen: Soft, Non Tender, Non-Distended Skin: No rashes Vital Signs Temp Pulse Resp BP Pulse Ox 98.5 F 83 20 H 130/61 H 92 01/16/18 09:23 01/16/18 12:57 01/16/18 12:57 01/16/18 09:23 01/16/18 09:38 Oxygen Flow Rate (L/min) 2 Oxygen Delivery Method Room Air Weight: 72.7 kg Body Mass Index (BMI) 29.5 Intake and Output for Last 24 Hours 01/14/18 01/15/18 01/16/18 23:59 23:59 23:59 Intake Total 1443 / 1443 770.5 / 770.5 Output Total 1702 / 1702 30 / 30 Balance -259 / -259 740.5 / 740.5 Microbiology Past 72 Hours 01/16/18 12:48 Streptococcus pneumoniae Antigen (M - Final Urine, Clean Catch 01/16/18 12:48 Legionella Antigen - Final Urine, Clean Catch 01/14/18 20:50 Respiratory Panel (PCR) - Final Mucosa - Throat 01/14/18 20:00 Influenza Types A,B Direct FA (SANDEEP) - Final Mucosa - Nasopharyngeal Laboratory Tests Past 24 Hrs 01/16/18 01/16/18 01/16/18 05:04 05:04 08:50 WBC 3.9 L RBC 2.67 L Hgb 7.2 L Hct 23.4 L MCV 87.6 MCH 27.0 MCHC 30.8 L RDW 17.3 H RDW Differential 55.1 H Plt Count 150 MPV 10.4 Immature Gran % (Auto) 0.500 Neut % (Auto) 75.7 H Lymph % (Auto) 13.0 L [place] % (Auto) 9.2 Eos % (Auto) 1.3 Baso % (Auto) 0.3 Absolute Neuts (auto) 3.0 Absolute Lymphs (auto) 0.51 L Total Counted Not Reportable Sodium 136 Potassium 3.7 Chloride 96 L Carbon Dioxide 31.0 Anion Gap 9 BUN 26 H Creatinine 5.03 H Estim Creat Clear Calc 9.54 Est GFR (MDRD) Af Amer 11 L Est GFR (MDRD) Non-Af 10 L BUN/Creatinine Ratio 5.2 L Glucose 76 Calcium 8.0 L Urine Color Urine Clarity Urine pH Ur Specific [place] Urine Protein Urine Glucose (UA) Urine Ketones Urine Occult Blood Urine Nitrite Urine Bilirubin Urine Urobilinogen Ur Leukocyte Esterase Urine RBC Urine WBC Ur Squamous Epith Cells Urine Bacteria Urine Mucus Blood Type O POSITIVE Antibody Screen POSITIVE H Antibody Identification Pending Crossmatch See Detail 01/16/18 12:48 WBC RBC Hgb Hct MCV MCH MCHC RDW RDW Differential Plt Count MPV Immature Gran % (Auto) Neut % (Auto) Lymph % (Auto) [place] % (Auto) Eos % (Auto) Baso % (Auto) Absolute Neuts (auto) Absolute Lymphs (auto) Total Counted Sodium Potassium Chloride Carbon Dioxide Anion Gap BUN Creatinine Estim Creat Clear Calc Est GFR (MDRD) Af Amer Est GFR (MDRD) Non-Af BUN/Creatinine Ratio Glucose Calcium Urine Color Yellow Urine Clarity Clear Urine pH 9.0 Ur Specific [place] 1.015 Urine Protein 100 H Urine Glucose (UA) Normal Urine Ketones Negative Urine Occult Blood 250 H Urine Nitrite Negative Urine Bilirubin Negative Urine Urobilinogen Normal Ur Leukocyte Esterase 25 H Urine RBC 0-5 SEEN Urine WBC 0-5 SEEN Ur Squamous Epith Cells 0 SEEN Urine Bacteria 0 SEEN Urine Mucus 0 SEEN Blood Type Antibody Screen Antibody Identification Crossmatch Medical Necessity - Tobacco Use Smoking Status: Former smoker - Quit about 10-15 years ago; states never a big smoker Had cigarette smoking. Tobacco Use: Cigarettes Route of nutrition/ use of supplements: [] Nutritional Intake: [] IV Site: [] Saavedra Catheter: [] - Assessment/Plan Antibiotics: [] Assessment/Plan: [] No clear focal signs of infection. Some of her symptoms could be explained by progression of her cancer. Does have chronic lung changes and some new SOB and sputum. Will order sputum cx if she can provide a sample. With her chemo and ESRD, I think it is reasonable to cover empirically with cefepime for ? pneumonia. No fever, normal wbc here. Resp viral panel pcr neg. Will stop vanc with neg bcx. Will follow
--- NOTE | 2018-01-16 16:45 | PCM.PN.REN ---
Subjective: Pt has no nausea No vomiting.breathing is good. Still has cough - Physical Exam General: Alert, Oriented x3 HEENT: Atraumatic Oral: Moist Mucosa Neck: Supple, No JVD Lungs: Normal air movement, Rhonchi Cardiovascular: Regular rate, Regular Rhythm, Normal S1, Normal S2 Abdomen: Bowel Sounds Present, Soft Extremities: No cyanosis, No edema Skin: No rashes Musculoskeletal: No Tenderness to Palpation of Joints or Extremities Lymphatic: No Cervical, Supraclavicular, or Inguinal Adenopathy Neurological: Cranial nerves II-XII grossly intact, Neuro grossly intact Psych/Mental Status: Normal Affect Vital Signs Temp Pulse Resp BP Pulse Ox 98.5 F 92 20 H 130/61 H 92 01/16/18 09:23 01/16/18 15:10 01/16/18 12:57 01/16/18 09:23 01/16/18 09:38 Oxygen Flow Rate (L/min) 2 Oxygen Delivery Method Room Air Weight: 72.7 kg Body Mass Index (BMI) 29.5 Intake and Output for Last 24 Hours 01/14/18 01/15/18 01/16/18 23:59 23:59 23:59 Intake Total 1443 / 1443 770.5 / 770.5 Output Total 1702 / 1702 30 / 30 Balance -259 / -259 740.5 / 740.5 Microbiology Past 72 Hours 01/16/18 12:48 Streptococcus pneumoniae Antigen (M - Final Urine, Clean Catch 01/16/18 12:48 Legionella Antigen - Final Urine, Clean Catch 01/14/18 20:50 Respiratory Panel (PCR) - Final Mucosa - Throat 01/14/18 20:00 Influenza Types A,B Direct FA (SANDEEP) - Final Mucosa - Nasopharyngeal Laboratory Tests Past 24 Hrs 01/16/18 01/16/18 01/16/18 05:04 05:04 08:50 WBC 3.9 L RBC 2.67 L Hgb 7.2 L Hct 23.4 L MCV 87.6 MCH 27.0 MCHC 30.8 L RDW 17.3 H RDW Differential 55.1 H Plt Count 150 MPV 10.4 Immature Gran % (Auto) 0.500 Neut % (Auto) 75.7 H Lymph % (Auto) 13.0 L [place] % (Auto) 9.2 Eos % (Auto) 1.3 Baso % (Auto) 0.3 Absolute Neuts (auto) 3.0 Absolute Lymphs (auto) 0.51 L Total Counted Not Reportable Sodium 136 Potassium 3.7 Chloride 96 L Carbon Dioxide 31.0 Anion Gap 9 BUN 26 H Creatinine 5.03 H Estim Creat Clear Calc 9.54 Est GFR (MDRD) Af Amer 11 L Est GFR (MDRD) Non-Af 10 L BUN/Creatinine Ratio 5.2 L Glucose 76 Calcium 8.0 L Urine Color Urine Clarity Urine pH Ur Specific [place] Urine Protein Urine Glucose (UA) Urine Ketones Urine Occult Blood Urine Nitrite Urine Bilirubin Urine Urobilinogen Ur Leukocyte Esterase Urine RBC Urine WBC Ur Squamous Epith Cells Urine Bacteria Urine Mucus Blood Type O POSITIVE Antibody Screen POSITIVE H Antibody Identification ANTI-LITTLE e Crossmatch See Detail 01/16/18 12:48 WBC RBC Hgb Hct MCV MCH MCHC RDW RDW Differential Plt Count MPV Immature Gran % (Auto) Neut % (Auto) Lymph % (Auto) [place] % (Auto) Eos % (Auto) Baso % (Auto) Absolute Neuts (auto) Absolute Lymphs (auto) Total Counted Sodium Potassium Chloride Carbon Dioxide Anion Gap BUN Creatinine Estim Creat Clear Calc Est GFR (MDRD) Af Amer Est GFR (MDRD) Non-Af BUN/Creatinine Ratio Glucose Calcium Urine Color Yellow Urine Clarity Clear Urine pH 9.0 Ur Specific [place] 1.015 Urine Protein 100 H Urine Glucose (UA) Normal Urine Ketones Negative Urine Occult Blood 250 H Urine Nitrite Negative Urine Bilirubin Negative Urine Urobilinogen Normal Ur Leukocyte Esterase 25 H Urine RBC 0-5 SEEN Urine WBC 0-5 SEEN Ur Squamous Epith Cells 0 SEEN Urine Bacteria 0 SEEN Urine Mucus 0 SEEN Blood Type Antibody Screen Antibody Identification Crossmatch Medical Necessity - Tobacco Use Smoking Status: Former smoker - Quit about 10-15 years ago; states never a big smoker Had cigarette smoking. Tobacco Use: Cigarettes Assessment/Plan All Active Problems HCAP (healthcare-associated pneumonia) (Acute) 1- ESRD on MWF HD schedule. Pt goes to [facility] HD unit . Dr. King is the primary assembler fitter Last HD session was yesterday with 1700 cc UF HD access is right UE AVF 2- HTN: BP is well controlled. continue the same BP meds 3- Anemia: Hgb is 7.2 .I will hold giving GREG in patient with active cancer RBC transfusion as per the primary service 4- BMD:continue Ca acetate with meals 5- Sepsis due to pneumonia On cefepime and vancomycin. Please decrease Cefepime dose to 500 mg IV daily. Please give the dose after HD session Renal team will continue to follow CONSTANTINO MONROY MD
[2018-01-16 23:19] LABS: Hematocrit 29.1 % (37-47); Hemoglobin 9.2 g/dl (12.0-15.0)
[2018-01-17] VITALS (14 sets, daily range): BP systolic 122–148; BP diastolic 58–68; PULSE 73–90; RESP 14–18; TEMP 36.4–37.1; O2SAT 93–98
[2018-01-17] MEDS: oxyCODONE 5 MG Tablet PO ×2 (00:30→05:05)
[2018-01-17] MEDS: Ondansetron 4 MG/2 ML Vial IV (00:30)
[2018-01-17] MEDS: 0.9% NaCl Peripheral Flush Adult/Peds IV ×2 (00:30→14:46)
[2018-01-17] MEDS: Heparin Injection (Vial) 5,000 UNIT/ML VIAL 5000 UNIT SC (05:01)
[2018-01-17 05:42] LABS: Absolute Lymphocyte Count 0.72 X10^3/ul (0.83-4.51); Absolute Neutrophil Count 3.3 X10^3/uL (2.0-7.7); Basophil# 0.01 X10^3/uL; Basophil% 0.2 % (0-1); Eosinophil# 0.08 X10^3/uL; Eosinophils% 1.8 % (0-5); Hematocrit 29.4 % (37-47); Hemoglobin 9.3 g/dl (12.0-15.0); Lymphocyte # 0.72 X10^3/ul (4.0); Lymphocyte % 16.1 % (19-41); Mean Corp Hgb Conc 31.6 g/gl (32-36); Mean Corpuscular Volume 85.2 fL (81-99); Mean Platelet Vol. 9.4 fl (6.2-12.0); Monocyte# 0.34 X10^3/uL; Monocyte% 7.6 % (0-10); Neutrophil # 3.29 X10^3/uL (2.7-7.7); Neutrophil % 73.6 % (47-70); Platelet Count 158 K/mm3 (150-450); RBC Distribution Width CV 17.2 % (11.6-14.6); RBC Distribution Width SD 54.2 fl (35.1-43.9); Red Blood Count 3.45 M/mm3 (4.2-5.4); White Blood Count 4.5 K/mm3 (4.4-11.0)
[2018-01-17 05:59] LABS: POSITIVE COUNT NO; POSITIVE DIFFERENTIAL NO; POSITIVE MORPHOLOGY NO
[2018-01-17] MEDS: Ipratropium/Albuterol Sulfate 3 ML AMPUL.NEB INHALATION ×2 (08:13→13:22)
--- NOTE | 2018-01-17 08:31 | PN_ITS ---
Subjective: No fever, non-productive cough, no chest pain or SOB Blood, sputum & viral cultures are negative so far. - Physical Exam General: Alert, Oriented x3 HEENT: Atraumatic, PERRLA, EOMI Oral: Moist Mucosa, No Gingival or Mucosal Lesions/ Ulcerations Neck: Supple, No JVD Lungs: No rhonchi, No wheeze, No rales, Diminished Cardiovascular: Regular rate, Regular Rhythm, Normal S1, Normal S2, No murmurs Abdomen: Bowel Sounds Present, Soft, Non Tender, Non-Distended, No Hepato- splenomegaly Extremities: No clubbing, No cyanosis, No edema Skin: No rashes, No breakdown Lymphatic: No Cervical, Supraclavicular, or Inguinal Adenopathy Neurological: Neuro grossly intact Psych/Mental Status: Agitated, Alert and oriented to time, place, person, mood and affect Vital Signs Temp Pulse Resp BP Pulse Ox 98.1 F 77 18 142/63 H 93 01/17/18 05:00 01/17/18 06:58 01/17/18 05:00 01/17/18 05:00 01/17/18 05:00 Oxygen Flow Rate (L/min) 2 Oxygen Delivery Method Nasal Cannula Weight: 161 lb 6.054 oz Body Mass Index (BMI) 29.5 Intake and Output for Last 24 Hours 01/15/18 01/16/18 01/17/18 23:59 23:59 23:59 Intake Total 1443 / 1443 1198.5 / 1198.5 727 / 727 Output Total 1702 / 1702 30 / 30 Balance -259 / -259 1168.5 / 1168.5 727 / 727 Microbiology Past 72 Hours 01/16/18 12:48 Streptococcus pneumoniae Antigen (M - Final Urine, Clean Catch 01/16/18 12:48 Legionella Antigen - Final Urine, Clean Catch 01/14/18 20:50 Respiratory Panel (PCR) - Final Mucosa - Throat 01/14/18 20:00 Influenza Types A,B Direct FA (SANDEEP) - Final Mucosa - Nasopharyngeal Laboratory Tests Past 24 Hrs 01/16/18 01/16/18 01/16/18 08:50 12:48 23:12 WBC RBC Hgb 9.2 L Hct 29.1 L MCV MCH MCHC RDW RDW Differential Plt Count MPV Immature Gran % (Auto) Neut % (Auto) Lymph % (Auto) [place] % (Auto) Eos % (Auto) Baso % (Auto) Absolute Neuts (auto) Absolute Lymphs (auto) Total Counted Urine Color Yellow Urine Clarity Clear Urine pH 9.0 Ur Specific [place] 1.015 Urine Protein 100 H Urine Glucose (UA) Normal Urine Ketones Negative Urine Occult Blood 250 H Urine Nitrite Negative Urine Bilirubin Negative Urine Urobilinogen Normal Ur Leukocyte Esterase 25 H Urine RBC 0-5 SEEN Urine WBC 0-5 SEEN Ur Squamous Epith Cells 0 SEEN Urine Bacteria 0 SEEN Urine Mucus 0 SEEN Blood Type O POSITIVE Antibody Screen POSITIVE H Antibody Identification ANTI-LITTLE e Crossmatch See Detail 01/17/18 05:12 WBC 4.5 RBC 3.45 L Hgb 9.3 L Hct 29.4 L MCV 85.2 MCH 27.0 MCHC 31.6 L RDW 17.2 H RDW Differential 54.2 H Plt Count 158 MPV 9.4 Immature Gran % (Auto) 0.700 Neut % (Auto) 73.6 H Lymph % (Auto) 16.1 L [place] % (Auto) 7.6 Eos % (Auto) 1.8 Baso % (Auto) 0.2 Absolute Neuts (auto) 3.3 Absolute Lymphs (auto) 0.72 L Total Counted Not Reportable Urine Color Urine Clarity Urine pH Ur Specific [place] Urine Protein Urine Glucose (UA) Urine Ketones Urine Occult Blood Urine Nitrite Urine Bilirubin Urine Urobilinogen Ur Leukocyte Esterase Urine RBC Urine WBC Ur Squamous Epith Cells Urine Bacteria Urine Mucus Blood Type Antibody Screen Antibody Identification Crossmatch Medical Necessity - Tobacco Use Smoking Status: Former smoker - Quit about 10-15 years ago; states never a big smoker Had cigarette smoking. Tobacco Use: Cigarettes Assessment/Plan All Active Problems HCAP (healthcare-associated pneumonia) (Acute) 1. Hospital- associated pneumonia versus viral infection. -Clinically improved, afebrile since admission. -Respiratory panel ordered, and blood and sputum culture are negative. -stop antibiotics if blood and sputum culture remain negative -Right lower lobe consolidation could be related to radiation changes or cancer progression -Tessolon 100mg TID prn cough 2. Endometrial carcinoma with wide metastasis possible stage IV endometrial carcinoma: -Compare CT scan from our office and discussed possible hospice referral if the re is progression of disease -Will discuss with Dr. Arteaga & follow-up in office next week. -Cancel chemotherapy until the above problem is resolved -Consult social service for d/c planning 3. Right thigh and pelvic pain, concern of metastasis or progression of disease in her pelvis -Tylenol scheduled dosing as needed for pain. -Continue morphine as needed for pain. Possible d/c home today & follow up with Dr. Arteaga next week cc: Dr. Eric Arteaga; Dr. Leah Nicole
[2018-01-17] MEDS: Folic Acid/Vitamin B Comp W-C 1 Capsule 1 CAP PO (09:19)
[2018-01-17] MEDS: Folic Acid 1 MG Tablet PO (09:19)
[2018-01-17] MEDS: Famotidine 20 MG Tablet PO (09:20)
--- NOTE | 2018-01-17 09:49 | CASEMGMT ---
Dr Alvarenga asked SW to check in with patient. SW met with patient, but she was getting ready to get dialysis and a student nurse was also in the room. PEPPER told her SW will check back with her before she leaves today. Alecia BARGER
--- NOTE | 2018-01-17 10:26 | PCM.PN.ID ---
Subjective: Feeling better, no fever, cough and SOB improved - Physical Exam General: Alert, Cooperative, No apparent distress Lungs: Clear to auscultation, Normal air movement Cardiovascular: Regular rate, Regular Rhythm Abdomen: Soft, Non Tender, Non-Distended Skin: No rashes Vital Signs Temp Pulse Resp BP Pulse Ox 97.6 F L 85 14 122/61 H 97 01/17/18 08:40 01/17/18 08:40 01/17/18 08:40 01/17/18 08:40 01/17/18 08:40 Oxygen Flow Rate (L/min) 2 Oxygen Delivery Method Nasal Cannula Weight: 73.2 kg Body Mass Index (BMI) 29.5 Intake and Output for Last 24 Hours 01/15/18 01/16/18 01/17/18 23:59 23:59 23:59 Intake Total 1443 / 1443 1198.5 / 1198.5 727 / 727 Output Total 1702 / 1702 30 / 30 Balance -259 / -259 1168.5 / 1168.5 727 / 727 Microbiology Past 72 Hours 01/14/18 20:45 Blood Culture - Preliminary Blood Culture (Wb) - Other No growth in 48 hours. 01/14/18 20:00 Blood Culture - Preliminary Blood Culture (Wb) - No Site/Description Given No growth in 48 hours. 01/16/18 12:48 Urine Culture - Preliminary Urine Catheter - Catheter Culture exhibits no growth. 01/16/18 12:48 Streptococcus pneumoniae Antigen (M - Final Urine, Clean Catch 01/16/18 12:48 Legionella Antigen - Final Urine, Clean Catch 01/14/18 20:50 Respiratory Panel (PCR) - Final Mucosa - Throat 01/14/18 20:00 Influenza Types A,B Direct FA (SANDEEP) - Final Mucosa - Nasopharyngeal Laboratory Tests Past 24 Hrs 01/16/18 01/16/18 01/16/18 08:50 12:48 23:12 WBC RBC Hgb 9.2 L Hct 29.1 L MCV MCH MCHC RDW RDW Differential Plt Count MPV Immature Gran % (Auto) Neut % (Auto) Lymph % (Auto) [place] % (Auto) Eos % (Auto) Baso % (Auto) Absolute Neuts (auto) Absolute Lymphs (auto) Total Counted Urine Color Yellow Urine Clarity Clear Urine pH 9.0 Ur Specific [place] 1.015 Urine Protein 100 H Urine Glucose (UA) Normal Urine Ketones Negative Urine Occult Blood 250 H Urine Nitrite Negative Urine Bilirubin Negative Urine Urobilinogen Normal Ur Leukocyte Esterase 25 H Urine RBC 0-5 SEEN Urine WBC 0-5 SEEN Ur Squamous Epith Cells 0 SEEN Urine Bacteria 0 SEEN Urine Mucus 0 SEEN Blood Type O POSITIVE Antibody Screen POSITIVE H Antibody Identification ANTI-LITTLE e Crossmatch See Detail 01/17/18 05:12 WBC 4.5 RBC 3.45 L Hgb 9.3 L Hct 29.4 L MCV 85.2 MCH 27.0 MCHC 31.6 L RDW 17.2 H RDW Differential 54.2 H Plt Count 158 MPV 9.4 Immature Gran % (Auto) 0.700 Neut % (Auto) 73.6 H Lymph % (Auto) 16.1 L [place] % (Auto) 7.6 Eos % (Auto) 1.8 Baso % (Auto) 0.2 Absolute Neuts (auto) 3.3 Absolute Lymphs (auto) 0.72 L Total Counted Not Reportable Urine Color Urine Clarity Urine pH Ur Specific [place] Urine Protein Urine Glucose (UA) Urine Ketones Urine Occult Blood Urine Nitrite Urine Bilirubin Urine Urobilinogen Ur Leukocyte Esterase Urine RBC Urine WBC Ur Squamous Epith Cells Urine Bacteria Urine Mucus Blood Type Antibody Screen Antibody Identification Crossmatch Medical Necessity - Tobacco Use Smoking Status: Former smoker - Quit about 10-15 years ago; states never a big smoker Had cigarette smoking. Tobacco Use: Cigarettes Route of nutrition/ use of supplements: [] Nutritional Intake: [] IV Site: [] Saavedra Catheter: [] - Assessment/Plan Antibiotics: [] Assessment/Plan: [] No clear focal signs of infection. Some of her symptoms could be explained by progression of her cancer. Treating for pneumonia empirically. Ok for d/c home after one more dose of cefepime today. Will follow
--- NOTE | 2018-01-17 10:41 | DCINST_ITS ---
You will use the following diet at home:: Cardiac, Renal (restricted protein/sodium) Your food should be the consistency of: Regular Discharge Activity: Return to Normal Activity Weight Bearing Status: Weight bearing as tolerated Call your doctor if you observe: Fever of 101 or Higher, Shortness of breath, Dizziness, Fainting spells, Chest pain, Increased palpitations (irregular heartbeat) Allergies/Adverse Reactions: Allergies No Known Allergies Allergy (Verified 01/14/18 19:37) Medications to take at Discharge Calcium Acetate [Phoslo Gel Cap] 2 cap PO TID 07/23/14 Docusate Sodium [Colace] 100 mg PO BID PRN 07/23/14 Folic Acid 1 mg PO DAILY@0800 07/23/14 Amlodipine [Norvasc] 10 mg PO DAILY 02/14/15 Lisinopril [Zestril] 20 mg PO BID 02/14/15 Ergocalciferol [Vitamin D] 50,000 unit PO TH 03/02/16 Famotidine [Pepcid AC] 20 mg PO BID PRN 03/02/16 Acetaminophen [Tylenol] 650 mg PO BID PRN 02/16/17 B Complex W-C No.20/Folic Acid [Nephrocaps Softgel] 1 mg PO DAILY 06/07/17 Ondansetron [Zofran] 8 mg PO Q8H PRN PRN 06/07/17 Albuterol Aerosols [Ventolin Aerosols] 2.5 mg INHALATION Q2H PRN PRN #120 vial.neb. 06/11/17 Hydrocodone Bit/Homatrop Me-Br [Hydrocodone-Homatropine Syrup] 1 dose PO 4X/DAY PRN PRN 10/17/17 Ascorbic Acid [Vitamin C] 500 mg PO DAILY@0800 01/14/18 Amox/Clavulanate Tablet [Augmentin Tablet] 875 mg PO Q12H #6 tab 01/17/18 The following prescriptions were given: Amox/Clavulanate Tablet [Augmentin Tablet] 875 mg PO Q12H #6 tab Primary Care Physician: Lawrence Dozier DO [Primary Care Provider] - Please follow up with your Primary Care Physician in: 1 week. Test Results: Test results from this visit will be discussed in further detail at your follow- up appointment, if applicable. Please Follow Up With: Eric Arteaga DO
--- NOTE | 2018-01-17 11:38 | DIALYSIS ---
Hepatitis B sab (positive 11) 03/01/2017. Result from patient's chronic unit [facility] Report from primary RNKatelin Access: Left upper arm AVF. Site benign, thrill and bruit present, two aneurysms developing, cannulated with 15 gauge needles x 2. Connections visible and secure.
--- NOTE | 2018-01-17 13:54 | CASEMGMT ---
SW spoke with patient. Introduced self and role at [facility]. SW asked patient how things were going at home. She said fine. SW asked if she feels she needs any extra help at home. PEPPER explained SW could set up a nurse or therapy or an aide to come and see her. She declined stating she is fine and doesn't need any extra help. SW asked if the doctors have said anything to her about her Cancer. She said they have not said anything to her this visit. She said she sees Dr Arteaga next week. PEPPER again asked if she was doing ok and she said she was fine. Alecia ROTHMAN MSW
--- NOTE | 2018-01-17 14:08 | PCM.DC.SUM ---
Discharge Date and Diagnosis Date of Admission: 01/14/18 Date of Discharge: 01/17/18 - Primary Discharge Diagnosis #1 probable acute right lung healthcare associated pneumonia. #2 acute on chronic anemia required blood transfusion, there was no evidence of active bleeding. #3 right hip pain, attributed to advanced osteoarthritis. #4 metastatic endometrial cancer with concern of possible cancer progression. - Secondary Discharge Diagnosis Chronic Problems Endometrial cancer (Chronic) Status post hysterectomy, cystectomy and partial colectomy due to metastatic disease End-stage renal disease on hemodialysis (Chronic) History of hysterectomy for cancer (Chronic) History of nephrectomy (Chronic) Anemia of chronic renal failure, stage 5 (Chronic) Anemia of chronic renal failure (Chronic) Hypertension (Chronic) Obesity (BMI 30-39.9) (Chronic) History of colostomy (Chronic) History of ileal conduit (Chronic) Hospital Course and Treatment Imaging Results: Clinical Impression(s) from Imaging Studies Chest X-Ray 01/14/18 20:02 IMPRESSION: Persisting airspace opacities in the right mid to lower lung field. Resolution of the previously seen left-sided opacities. Electronically Signed: Ernesto Murray, at 20:18 EST Tel , Service support , Hip/Pelvis X-Ray 01/14/18 23:38 IMPRESSION: 1. Advanced osteoarthritis of the right hip. 2. No fracture or acute disease. 3. Chronic lucent defect of the right inferior pubic ramus. Please see above comment. If warranted, further evaluation with whole body bone scan could be obtained. at 0134 Reported and signed by: Srikanth Acuña MD Electronically Signed: Srikanth Acuña, at 1:32 EST Tel , Service support , Chest CTA 01/15/18 00:48 IMPRESSION: 1. No evidence of pulmonary embolic disease. 2. Right infrahilar and right middle lobe 4.7 cm mass, increased in size compared to previous. Small right pleural effusion. 3. Right lung extensive consolidation with volume loss. Radiation therapy, if previously performed, could show similar findings. 4. Several subpleural and pleural-based left lung nodules compatible with metastases. Individualized dose optimization techniques were used for this CT. at 0402 Reported and signed by: Srikanth Acuña MD Electronically Signed: Srikanth Acuña, at 3:59 EST Tel , Service support , Chest X-Ray 01/16/18 08:05 IMPRESSION: Stable examination. Stable right lower lobe pulmonary nodule with right upper lobe and in the right midlung airspace disease. Electronically Signed: Jose De Jesus Collado MD at 9:25 EST Tel [phone], Service support , , oncology. Dr. Strong, nephrology. Dr. Carreno, infectious disease. Operations: None Procedures: Blood transfusion, Dialysis Summary of Care Provided: Patient seen and examined on the day of discharge and appears to be stable to be discharged home. She denied any significant symptoms her vital signs are stable, she remained on 2 L of oxygen which has been her baseline at home. This is a 57 years old female patient presented to the emergency room because of cough and subjective fever and she was found to have right lung consolidation, right infrahilar and right middle lobe lung mass increased in size compared to previous CAT scans as well as small pleural effusion and she is being admitted as a case of probable healthcare associated pneumonia versus worsening lung metastasis from endometrial cancer. She developed acute on chronic anemia requiring blood transfusion without evidence of acute blood loss. #1 probable acute right lung healthcare associated pneumonia: Treated empirically with IV cefepime and vancomycin. She remained afebrile throughout admission and she had no leukocytosis. CTA chest revealed no evidence of PE, revealed right lung extensive consolidation, right middle lobe lung mass which increased in size and there is a concern that her cancer is progressing. Nasal swab for influenza a and B were negative. Blood culture showed no growth in 48 hours. Respiratory panel for viruses were negative. Patient discharged home in a stable medical condition, discharged on Augmentin for more than 3 days to complete total of 7 days of treatment. #2 acute on chronic chronic anemia: Probably anemia of chronic disease secondary to cancer chemotherapy. There was no evidence of acute blood loss identified. Baseline hemoglobin around 8 g/dL. Hemoglobin came down to 7.2 g/dL and she received 1 unit of packed RBCs. After transfusion, hemoglobin came up above 9 g/dL and remained stable. #3 right hip pain: X-ray of the head revealed advanced osteoarthritis of the right hip, no fractures. Controlled with pain medications. #4 elevated d-dimer: CTA chest was negative for acute PE. Venous Doppler of the both legs revealed no evidence of acute DVT. #5 metastatic endometrial cancer: With metastases to the bladder, left kidney and possible lung metastasis. Currently on chemotherapy. There is a concern that she has progression of her disease on CT scan chest. Oncology consulted and recommended to treat probable pneumonia empirically and follow-up with oncology as outpatient in 1 week. #6 history of renal cell carcinoma: Status post left nephrectomy. Stable. #7 ESRD: Continue on hemodialysis, received hemodialysis according to her schedule. Patient discharged home in a stable medical condition, discharged on Augmentin for 3 days to complete total of 7 days of empiric treatment for probable pneumonia, continued on her current medications without any changes, recommended follow-up with PCP in 1 week, follow-up with oncology according to Dr. Arteaga recommendation. This note was generated with [employer] dictation software. It may contain incorrect words, spelling, and punctuation that were not noted in checking the note before signing. - Physical Exam General: Alert, Oriented x3, Cooperative, No apparent distress HEENT: Atraumatic, PERRLA, EOMI, Normocephalic Oral: Moist Mucosa, No Gingival or Mucosal Lesions/ Ulcerations Neck: Supple, No JVD, Negative Carotid Bruits, Trachea Midline, Thyroid Normal Size and Texture Lungs: Clear to auscultation, No wheeze, No rales, Diminished, Rhonchi Cardiovascular: Regular rate, Regular Rhythm, Normal S1, Normal S2, PMI Normal Abdomen: Bowel Sounds Present, Soft, Non Tender, Non-Distended, No Hepato-splenomegaly, - - Right lower abdomen ileal conduit. Left lower abdomen colostomy. Extremities: No clubbing, No cyanosis, No edema Skin: No rashes, No breakdown Lymphatic: No Cervical, Supraclavicular, or Inguinal Adenopathy Neurological: Cranial nerves II-XII grossly intact, Neuro grossly intact Psych/Mental Status: Normal Affect, Appropriate, Alert and oriented to time, place, person, mood and affect Vital Signs Temp Pulse Resp BP Pulse Ox 97.8 F 88 16 148/65 H 98 01/17/18 14:04 01/17/18 14:04 01/17/18 14:04 01/17/18 14:04 01/17/18 14:04 Oxygen Flow Rate (L/min) 1 Oxygen Delivery Method Nasal Cannula Weight: 161 lb 6.054 oz Body Mass Index (BMI) 29.5 Intake and Output for Last 24 Hours 01/15/18 01/16/18 01/17/18 23:59 23:59 23:59 Intake Total 1443 / 1443 1198.5 / 1198.5 727 / 727 Output Total 1702 / 1702 30 Balance -259 / -259 1168.5 / 1168.5 727 / 727 Microbiology Past 72 Hours 01/14/18 20:45 Blood Culture - Preliminary Blood Culture (Wb) - Other No growth in 48 hours. 01/14/18 20:00 Blood Culture - Preliminary Blood Culture (Wb) - No Site/Description Given No growth in 48 hours. 01/16/18 12:48 Urine Culture - Preliminary Urine Catheter - Catheter Culture exhibits no growth. 01/16/18 12:48 Streptococcus pneumoniae Antigen (M - Final Urine, Clean Catch 01/16/18 12:48 Legionella Antigen - Final Urine, Clean Catch 01/14/18 20:50 Respiratory Panel (PCR) - Final Mucosa - Throat 01/14/18 20:00 Influenza Types A,B Direct FA (SANDEEP) - Final Mucosa - Nasopharyngeal Laboratory Tests Past 24 Hrs 01/16/18 01/16/18 01/17/18 08:50 23:12 05:12 WBC 4.5 RBC 3.45 L Hgb 9.2 L 9.3 L Hct 29.1 L 29.4 L MCV 85.2 MCH 27.0 MCHC 31.6 L RDW 17.2 H RDW Differential 54.2 H Plt Count 158 MPV 9.4 Immature Gran % (Auto) 0.700 Neut % (Auto) 73.6 H Lymph % (Auto) 16.1 L [place] % (Auto) 7.6 Eos % (Auto) 1.8 Baso % (Auto) 0.2 Absolute Neuts (auto) 3.3 Absolute Lymphs (auto) 0.72 L Total Counted Not Reportable Blood Type O POSITIVE Antibody Screen POSITIVE H Antibody Identification ANTI-LITTLE e Crossmatch See Detail Discharge Activity: Return to Normal Activity Weight Bearing Status: Weight bearing as tolerated Call your doctor if you observe: Fever of 101 or Higher, Shortness of breath, Dizziness, Fainting spells, Chest pain, Increased palpitations (irregular heartbeat) Home Medications: Medications to take at Discharge Calcium Acetate [Phoslo Gel Cap] 2 cap PO TID 07/23/14 Docusate Sodium [Colace] 100 mg PO BID PRN 07/23/14 Folic Acid 1 mg PO DAILY@0807/23/14 Amlodipine [Norvasc] 10 mg PO DAILY 02/14/15 Lisinopril [Zestril] 20 mg PO BID 02/14/15 Ergocalciferol [Vitamin D] 50,000 unit PO TH 03/02/16 Famotidine [Pepcid AC] 20 mg PO BID PRN 03/02/16 Acetaminophen [Tylenol] 650 mg PO BID PRN 02/16/17 B Complex W-C No.20/Folic Acid [Nephrocaps Softgel] 1 mg PO DAILY 06/07/17 Ondansetron [Zofran] 8 mg PO Q8H PRN PRN 06/07/17 Albuterol Aerosols [Ventolin Aerosols] 2.5 mg INHALATION Q2H PRN PRN #120 vial.neb. 06/11/17 Hydrocodone Bit/Homatrop Me-Br [Hydrocodone-Homatropine Syrup] 1 dose PO 4X/DAY PRN PRN 10/17/17 Ascorbic Acid [Vitamin C] 500 mg PO DAILY@0800 01/14/18 Amox/Clavulanate Tablet [Augmentin Tablet] 875 mg PO Q12H #6 tab 01/17/18 Following Prescrptions Were Given to Patient: Amox/Clavulanate Tablet [Augmentin Tablet] 875 mg PO Q12H #6 tab Primary Care Physician: Lawrence Dozier DO [Primary Care Provider] - Please follow up with your Primary Care Physician in: 1 week. Please Follow Up With: Masci,Eric, DO Please Follow Up With: Lawrence Dozier DO Disposition: Home Minutes spent on discharge:: 35 Patient Condition:: Stable Medical Necessity - Tobacco Use Smoking Status: Former smoker - Quit about 10-15 years ago; states never a big smoker Had cigarette smoking. Tobacco Use: Cigarettes Meaningful Use Info Meaningful Use Diagnoses (Choose all that apply): None applicable Code Visit Inpatient E&M: 15956 Disch Hosp
--- NOTE | 2018-01-17 14:15 | DIALYSIS ---
Hemodialysis complete. 3.5 hour run, net fluid removed = 1400 ml. Patient tolerated HD tx well. Right upper arm AVF: site benign, thrill and bruit present, needle site pressure held 15 min each; hemostasis achieved. Report given to primary RNKatelin.
--- NOTE | 2018-01-17 14:17 | DS.PCM_ITS ---
Discharge Date and Diagnosis Date of Admission: 01/14/18 Date of Discharge: 01/17/18 - Primary Discharge Diagnosis #1 probable acute right lung healthcare associated pneumonia. #2 acute on chronic anemia required blood transfusion, there was no evidence of active bleeding. #3 right hip pain, attributed to advanced osteoarthritis. #4 metastatic endometrial cancer with concern of possible cancer progression. - Secondary Discharge Diagnosis Chronic Problems Endometrial cancer (Chronic) Status post hysterectomy, cystectomy and partial colectomy due to metastatic disease End-stage renal disease on hemodialysis (Chronic) History of hysterectomy for cancer (Chronic) History of nephrectomy (Chronic) Anemia of chronic renal failure, stage 5 (Chronic) Anemia of chronic renal failure (Chronic) Hypertension (Chronic) Obesity (BMI 30-39.9) (Chronic) History of colostomy (Chronic) History of ileal conduit (Chronic) Hospital Course and Treatment Imaging Results: Clinical Impression(s) from Imaging Studies Chest X-Ray 01/14/18 20:02 IMPRESSION: Persisting airspace opacities in the right mid to lower lung field. Resolution of the previously seen left-sided opacities. Electronically Signed: Ernesto Murray, at 20:18 EST Tel , Service support , Hip/Pelvis X-Ray 01/14/18 23:38 IMPRESSION: 1. Advanced osteoarthritis of the right hip. 2. No fracture or acute disease. 3. Chronic lucent defect of the right inferior pubic ramus. Please see above comment. If warranted, further evaluation with whole body bone scan could be obtained. at 0134 Reported and signed by: Srikanth Acuña MD Electronically Signed: Srikanth Acuña, at 1:32 EST Tel , Service support , Chest CTA 01/15/18 00:48 IMPRESSION: 1. No evidence of pulmonary embolic disease. 2. Right infrahilar and right middle lobe 4.7 cm mass, increased in size compared to previous. Small right pleural effusion. 3. Right lung extensive consolidation with volume loss. Radiation therapy, if previously performed, could show similar findings. 4. Several subpleural and pleural-based left lung nodules compatible with metastases. Individualized dose optimization techniques were used for this CT. at 0402 Reported and signed by: Srikanth Acuña MD Electronically Signed: Srikanth Acuña, at 3:59 EST Tel , Service support , Chest X-Ray 01/16/18 08:05 IMPRESSION: Stable examination. Stable right lower lobe pulmonary nodule with right upper lobe and in the right midlung airspace disease. Electronically Signed: Jose De Jesus Collado MD at 9:25 EST Tel [phone], Service support , , oncology. Dr. Strong, nephrology. Dr. Carreno, infectious disease. Operations: None Procedures: Blood transfusion, Dialysis Summary of Care Provided: Patient seen and examined on the day of discharge and appears to be stable to be discharged home. She denied any significant symptoms her vital signs are stable, she remained on 2 L of oxygen which has been her baseline at home. This is a 57 years old female patient presented to the emergency room because of cough and subjective fever and she was found to have right lung consolidation, right infrahilar and right middle lobe lung mass increased in size compared to previous CAT scans as well as small pleural effusion and she is being admitted as a case of probable healthcare associated pneumonia versus worsening lung metastasis from endometrial cancer. She developed acute on chronic anemia requiring blood transfusion without evidence of acute blood loss. #1 probable acute right lung healthcare associated pneumonia: Treated empirically with IV cefepime and vancomycin. She remained afebrile throughout admission and she had no leukocytosis. CTA chest revealed no evidence of PE, revealed right lung extensive consolidation, right middle lobe lung mass which increased in size and there is a concern that her cancer is progressing. Nasal swab for influenza a and B were negative. Blood culture showed no growth in 48 hours. Respiratory panel for viruses were negative. Patient discharged home in a stable medical condition, discharged on Augmentin for more than 3 days to complete total of 7 days of treatment. #2 acute on chronic chronic anemia: Probably anemia of chronic disease secondary to cancer chemotherapy. There was no evidence of acute blood loss identified. Baseline hemoglobin around 8 g/dL. Hemoglobin came down to 7.2 g/dL and she received 1 unit of packed RBCs. After transfusion, hemoglobin came up above 9 g/dL and remained stable. #3 right hip pain: X-ray of the head revealed advanced osteoarthritis of the right hip, no fractures. Controlled with pain medications. #4 elevated d-dimer: CTA chest was negative for acute PE. Venous Doppler of the both legs revealed no evidence of acute DVT. #5 metastatic endometrial cancer: With metastases to the bladder, left kidney and possible lung metastasis. Currently on chemotherapy. There is a concern that she has progression of her disease on CT scan chest. Oncology consulted and recommended to treat probable pneumonia empirically and follow-up with oncology as outpatient in 1 week. #6 history of renal cell carcinoma: Status post left nephrectomy. Stable. #7 ESRD: Continue on hemodialysis, received hemodialysis according to her schedule. Patient discharged home in a stable medical condition, discharged on Augmentin for 3 days to complete total of 7 days of empiric treatment for probable pneumonia, continued on her current medications without any changes, recommended follow-up with PCP in 1 week, follow-up with oncology according to Dr. Arteaga recommendation. This note was generated with [employer] dictation software. It may contain incorrect words, spelling, and punctuation that were not noted in checking the note before signing. - Physical Exam General: Alert, Oriented x3, Cooperative, No apparent distress HEENT: Atraumatic, PERRLA, EOMI, Normocephalic Oral: Moist Mucosa, No Gingival or Mucosal Lesions/ Ulcerations Neck: Supple, No JVD, Negative Carotid Bruits, Trachea Midline, Thyroid Normal Size and Texture Lungs: Clear to auscultation, No wheeze, No rales, Diminished, Rhonchi Cardiovascular: Regular rate, Regular Rhythm, Normal S1, Normal S2, PMI Normal Abdomen: Bowel Sounds Present, Soft, Non Tender, Non-Distended, No Hepato-splen omegaly, - - Right lower abdomen ileal conduit. Left lower abdomen colostomy. Extremities: No clubbing, No cyanosis, No edema Skin: No rashes, No breakdown Lymphatic: No Cervical, Supraclavicular, or Inguinal Adenopathy Neurological: Cranial nerves II-XII grossly intact, Neuro grossly intact Psych/Mental Status: Normal Affect, Appropriate, Alert and oriented to time, place, person, mood and affect Vital Signs Temp Pulse Resp BP Pulse Ox 97.8 F 88 16 148/65 H 98 01/17/18 14:04 01/17/18 14:04 01/17/18 14:04 01/17/18 14:04 01/17/18 14:04 Oxygen Flow Rate (L/min) 1 Oxygen Delivery Method Nasal Cannula Weight: 161 lb 6.054 oz Body Mass Index (BMI) 29.5 Intake and Output for Last 24 Hours 01/15/18 01/16/18 01/17/18 23:59 23:59 23:59 Intake Total 1443 / 1443 1198.5 / 1198.5 727 / 727 Output Total 1702 / 1702 Balance -259 / -259 1168.5 / 1168.5 727 / 727 Microbiology Past 72 Hours 01/14/18 20:45 Blood Culture - Preliminary Blood Culture (Wb) - Other No growth in 48 hours. 01/14/18 20:00 Blood Culture - Preliminary Blood Culture (Wb) - No Site/Description Given No growth in 48 hours. 01/16/18 12:48 Urine Culture - Preliminary Urine Catheter - Catheter Culture exhibits no growth. 01/16/18 12:48 Streptococcus pneumoniae Antigen (M - Final Urine, Clean Catch 01/16/18 12:48 Legionella Antigen - Final Urine, Clean Catch 01/14/18 20:50 Respiratory Panel (PCR) - Final Mucosa - Throat 01/14/18 20:00 Influenza Types A,B Direct FA (SANDEEP) - Final Mucosa - Nasopharyngeal Laboratory Tests Past 24 Hrs 01/16/18 01/16/18 01/17/18 08:50 23:12 05:12 WBC 4.5 RBC 3.45 L Hgb 9.2 L 9.3 L Hct 29.1 L 29.4 L MCV 85.2 MCH 27.0 MCHC 31.6 L RDW 17.2 H RDW Differential 54.2 H Plt Count 158 MPV 9.4 Immature Gran % (Auto) 0.700 Neut % (Auto) 73.6 H Lymph % (Auto) 16.1 L [place] % (Auto) 7.6 Eos % (Auto) 1.8 Baso % (Auto) 0.2 Absolute Neuts (auto) 3.3 Absolute Lymphs (auto) 0.72 L Total Counted Not Reportable Blood Type O POSITIVE Antibody Screen POSITIVE H Antibody Identification ANTI-LITTLE e Crossmatch See Detail Discharge Activity: Return to Normal Activity Weight Bearing Status: Weight bearing as tolerated Call your doctor if you observe: Fever of 101 or Higher, Shortness of breath, Dizziness, Fainting spells, Chest pain, Increased palpitations (irregular heartbeat) Home Medications: Medications to take at Discharge Calcium Acetate [Phoslo Gel Cap] 2 cap PO TID 07/23/14 Docusate Sodium [Colace] 100 mg PO BID PRN 07/23/14 Folic Acid 1 mg PO DAILY@0807/23/14 Amlodipine [Norvasc] 10 mg PO DAILY 02/14/15 Lisinopril [Zestril] 20 mg PO BID 02/14/15 Ergocalciferol [Vitamin D] 50,000 unit PO TH 03/02/16 Famotidine [Pepcid AC] 20 mg PO BID PRN 03/02/16 Acetaminophen [Tylenol] 650 mg PO BID PRN 02/16/17 B Complex W-C No.20/Folic Acid [Nephrocaps Softgel] 1 mg PO DAILY 06/07/17 Ondansetron [Zofran] 8 mg PO Q8H PRN PRN 06/07/17 Albuterol Aerosols [Ventolin Aerosols] 2.5 mg INHALATION Q2H PRN PRN #120 vial.neb. 06/11/17 Hydrocodone Bit/Homatrop Me-Br [Hydrocodone-Homatropine Syrup] 1 dose PO 4X/DAY PRN PRN 10/17/17 Ascorbic Acid [Vitamin C] 500 mg PO DAILY@0800 01/14/18 Amox/Clavulanate Tablet [Augmentin Tablet] 875 mg PO Q12H #6 tab 01/17/18 Following Prescrptions Were Given to Patient: Amox/Clavulanate Tablet [Augmentin Tablet] 875 mg PO Q12H #6 tab Primary Care Physician: Lawrence Dozier DO [Primary Care Provider] - Please follow up with your Primary Care Physician in: 1 week. Please Follow Up With: Eric Arteaga DO Please Follow Up With: Lawrence Dozier DO Disposition: Home Minutes spent on discharge:: 35 Patient Condition:: Stable Medical Necessity - Tobacco Use Smoking Status: Former smoker - Quit about 10-15 years ago; states never a big smoker Had cigarette smoking. Tobacco Use: Cigarettes Meaningful Use Info Meaningful Use Diagnoses (Choose all that apply): None applicable Code Visit Inpatient E&M: 30929 Disch Hosp
[2018-01-17] MEDS: Calcium Acetate 667 MG Capsule 1334 MG PO (14:42)
[2018-01-17] MEDS: Lisinopril 20 MG Tablet PO (14:43)
[2018-01-17] MEDS: amLODIPine 10 MG Tablet PO (14:43)
[2018-01-17] MEDS: Benzonatate 100 MG Capsule PO (14:46)
--- NOTE | 2018-01-17 15:00 | CASEMGMT ---
RN YOLIS NOTE: Call placed to [facility]. They were made aware pt had dialysis today 01/17 and that she is getting discharged from the hospital. Pt states her chair time is , , Sun. Next chair time is this Sunday01/19/18. Pt aware. Yolande RICEN RN CM
--- NOTE | 2018-01-18 17:19 | CASEMGMT ---
GERTRUDIS LAGOS Discharge Follow-up Phone Call: ANNAMARIA: Ketan Strata: 3 Call Date: 01/18/18 Discharge Date: 01/17/18 Time of Call: [id number] Duration: 2 minutes ? Admitting Diagnosis: Pneumonia This GERTRUDIS LAGOS contacted pt via telephone for discharge follow-up. Pt states she has been doing so-so. Denied any difficulty with breathing. States she was able to obtain her atb and has been taking this as prescribed. Pt states she has made her follow-up appointment with her PCP. She denied any questions or concerns. Reynaldo Unger RN
== END 2018-01-17 16:20 | disposition home or self-care (01) | DRG 193 ==
LOC: ED 20:12 → PCU 21:37
PROVIDERS: Admitting Provider Internal Medicine; Emergency Provider Emergency Medicine; Family Provider Student in an Organized Health Care Education/Training Program; PCP Student in an Organized Health Care Education/Training Program; Visit Provider Hospitalist
DX: J18.9 Pneumonia, unspecified organism (principal); N18.6 End stage renal disease; C79.11 Secondary malignant neoplasm of bladder; I12.0 Hypertensive chronic kidney disease with stage 5 chronic kidney disease or end stage renal disease; C54.1 Malignant neoplasm of endometrium; Z99.2 Dependence on renal dialysis; Y95 Nosocomial condition; M16.11 Unilateral primary osteoarthritis, right hip; D63.1 Anemia in chronic kidney disease; E66.9 Obesity, unspecified; Z93.3 Colostomy status; D63.0 Anemia in neoplastic disease; Z90.5 Acquired absence of kidney; Z68.29 Body mass index [BMI] 29.0-29.9, adult; Z90.710 Acquired absence of both cervix and uterus; Z93.6 Other artificial openings of urinary tract status; Z90.49 Acquired absence of other specified parts of digestive tract; Z87.891 Personal history of nicotine dependence
CPT/HCPCS: 36415; 71045; 71046; 71275; 73502; 80048; 80053; 81001; 83605; 85014; 85018; 85025; 85379; 86850; 86870; 86900; 86902; 86920; 86922; 87040; 87086; 87449; 87633; 87804; 90937; 93005; 93970; 94640; 97802; 99285; J2185; J7030; J7040; J7050; P9016; Q9967; A4216; G0257; J2405

== ENCOUNTER → 2018-01-24 20:18 | Outpatient (CLI) | payer MEDICARE, SELFPAY | PROVIDERS: Family Provider Student in an Organized Health Care Education/Training Program; PCP Student in an Organized Health Care Education/Training Program; Visit Provider Student in an Organized Health Care Education/Training Program | DX: G47.33 Obstructive sleep apnea (adult) (pediatric) (principal) | CPT/HCPCS: 95811 ==

== ENCOUNTER 2018-02-02 16:16 | Emergency (ER) | payer MEDICARE, SELFPAY ==
[2018-01-14 22:13] VITALS: BMI 29.5
[2018-02-02 16:16] VITALS: BP 144/65; PULSE 95; RESP 22; TEMP 36.3; O2SAT 95; BMI 30.5
--- NOTE | 2018-02-02 16:59 | CT_ITS ---
STUDY: CT ABDOMEN AND PELVIS WITHOUT CONTRAST REASON FOR EXAM: Female, 57 years old. : Lung cancer RADIATION DOSAGE (If Supplied By Facility): CTDIvol = ( 12.68 ) mGy, DLP = ( 681.19 ) mGycm TECHNIQUE: Transaxial images were obtained from the dome of the diaphragm to the symphysis pubis without oral contrast, and without intravenous contrast. Sagittal and coronal images were reconstructed. Individualized dose optimization techniques were used for this CT. COMPARISON: CTA chest from 01/15/2018, CT abdomen and pelvis from 07/23/2014 FINDINGS: Parenchymal mass of the right lung base is partially visualized but grossly similar since the prior study. Small right pleural effusion noted. The visualized portions of the heart are within normal limits. Normal liver. There are multiple gallstones. There is mild splenomegaly. Normal pancreas. Normal bilateral adrenal glands. Severe right renal atrophy is new since the prior study. Prominent extrarenal pelvis is once again identified. The left kidney is surgically absent. Normal visualized stomach. Normal small intestine. Left lower quadrant ostomy identified. There is moderate fecal retention in the colon. The distal colon is surgically absent. Soft tissue density in the presacral space is similar since the prior study. There is diffuse atherosclerotic calcification of the abdominal aorta, without a demonstrated aneurysm. Normal inferior vena cava. Normal retroperitoneum. Normal urinary bladder. No pelvic free fluid. The uterus appears to be surgically absent. Complex abdominal wall hernias identified containing both colon and small bowel, grossly similar in size since the prior study. However, there is mild fluid within the inferior portion of the hernia sac, not evident on the prior study. Trace perihepatic and right paracolic gutter ascites. There are diffuse degenerative changes of the visualized lumbar spine. CT/Abdomen/Pelvis without Cont IMPRESSION: 1. No evidence of bowel obstruction. 2. Complex abdominal wall hernia with new hernia sac fluid in the largest left lower quadrant hernia may represent reactive edema. Trace perihepatic and right paracolic gutter ascites. No dilated loops of small bowel seen within the sac. 3. Lung mass in the right lung base is overall similar CT of 01/15/2018. Small right pleural effusion. 4. Severe right renal atrophy is new since 2014. Left nephrectomy. 5. Mild splenomegaly. Electronically Signed: Cayetano Beaulieu MD at 18:51 EST , Service support ,
--- NOTE | 2018-02-02 17:01 | ED.DCSUM_ITS ---
- ER Visit Summary Date of Service: 02/02/18 Chief Complaint: Abdominal pain History of Present Illness: The patient is a 57 F who presents with left lower abdominal pain that has been getting worse over the past week. Patient states the pain is aching. Patient states the pain is worse in the left lower q uadrant. Patient states it is worsened after she eats. Patient states she has been taking Pepto-Bismol with some relief. Patient admits to some nausea and vomiting but denies any hematemesis. Patient admits to some watery diarrhea but denies any melena or hematochezia. Patient denies any dysuria or hematuria but has a urostomy. Physical Examination: Vital signs are stable. Patient is afebrile. Patient is in no acute distress. Oral mucosa is pink and moist. Neck is supple. Trachea is midline. There is no JVD noted. Heart was regular rate and rhythm. Lungs are clear and equal bilaterally. Abdomen is soft. Bowel sounds are normal. There is left lower quadrant tenderness. There is no distention noted. There is no rebound or guarding noted. Cranial nerves II through XII are intact. There are no focal motor or sensory deficits noted. Test Results: CBC showed a mild anemia with hemoglobin of 11.3 and hematocrit of 36.9. BUN and creatinine were elevated at 41 and 7.85 respectively. Patient has a history of end-stage renal disease. Liver function tests and lipase were all within normal limits. CT scan of the abdomen and pelvis shows abdominal wall hernia that is stable compared to previous CT report. There is some mild fluid in the hernia sac today however there is no obstruction or perforation noted. Emergency Department Course and Treatment: Patient was given Zofran here. Patient felt better and was hungry on reevaluation. Patient was given a prescription for Zofran. Patient was instructed to start with a liquid diet and advance as tolerated. Patient was instructed to follow-up with her primary care physician in 5-7 days. Patient understood and was agreeable with the plan. All questions were answered. Disposition: Discharge home Impression: Nausea and vomiting This note was generated with [employer] software. It may contain incorrect words, spelling, and punctuation that were not noted in review of the chart prior to signing ED Disposition - Plan for ED Patient: Disposition: Home or Assisted Living Chief Complaint: Nausea/Vomiting Diagnosis: Nausea and vomiting Instructions: ED Nausea Vomiting Prescriptions: Ondansetron [Zofran Odt] 4 mg PO Q8H PRN PRN #10 tab PRN Reason: Nausea/Vomiting Referrals: Lawrence Dozier DO [Primary Care Provider] -
[2018-02-02] MEDS: Ondansetron 4 MG/2 ML Vial IV (17:28)
[2018-02-02 17:36] LABS: Absolute Lymphocyte Count 0.76 X10^3/ul (0.83-4.51); Absolute Neutrophil Count 4.7 X10^3/uL (2.0-7.7); Basophil# 0.01 X10^3/uL; Basophil% 0.2 % (0-1); Eosinophil# 0.12 X10^3/uL; Hematocrit 36.9 % (37-47); Hemoglobin 11.3 g/dl (12.0-15.0); Lymphocyte # 0.76 X10^3/ul (4.0); Lymphocyte % 12.7 % (19-41); Mean Corp Hgb Conc 30.6 g/gl (32-36); Mean Corpuscular Hgb 27.8 pg (27.0-32.0); Mean Corpuscular Volume 90.7 fL (81-99); Mean Platelet Vol. 8.8 fl (6.2-12.0); Monocyte# 0.33 X10^3/uL; Monocyte% 5.5 % (0-10); Neutrophil # 4.73 X10^3/uL (2.7-7.7); Neutrophil % 79.3 % (47-70); Platelet Count 184 K/mm3 (150-450); RBC Distribution Width CV 19.2 % (11.6-14.6); RBC Distribution Width SD 64.1 fl (35.1-43.9); Red Blood Count 4.07 M/mm3 (4.2-5.4)
[2018-02-02 17:37] LABS: POSITIVE COUNT NO; POSITIVE DIFFERENTIAL NO; POSITIVE MORPHOLOGY NO
[2018-02-02 18:10] LABS: ALB/GLOB Ratio 0.5 RATIO (0.9-2.4); AST(SGOT) 21 U/L (15-37); Alanine Aminotransfer ALT/SGPT 12 U/L (13-56); Albumin, Serum 2.4 g/dL (3.2-5.0); Alkaline Phosphatase 120 U/L (45-117); Anion Gap 11 (5-15); BUN 41 mg/dL (7-18); BUN/Creat Ratio 5.2 RATIO (10-20); Calcium,Total 8.9 mg/dL (8.5-10.1); Chloride 100 mmol/L (98-107); Creatinine, Serum 7.85 mg/dL (0.55-1.02); EST Glomerular Filtration Rate 6 mL/min (>60); Est Glom Filt Rate - Afr Amer 7 mL/min (>60); Globulin 4.8 g/dL (2.2-4.2); Glucose 140 mg/dL (74-106); Lipase 91 U/L (73-393); Potassium 4.4 mmol/L (3.5-5.1); Protein, Total 7.2 g/dL (6.4-8.2); Sodium Level 141 mmol/L (136-145)
--- NOTE | 2018-02-02 18:13 | ED.RN ---
PT STATES SHE DOES NOT MAKE MUCH URINE, APPROX 1 TBLSP PER DAY. NO URINE IN NEPHROSTOMY BAG. AWARE.
[2018-02-02 20:58] VITALS: BP 110/49; PULSE 87; RESP 17; RESP 18; O2SAT 95
--- OUTSIDE RECORDS SUMMARY | 2018-05-08 12:04 | XMS RPT_ITS ---
:1960 Author Organization OHIP Support Name Relationship Address Phone D Unavailable Unavailable Unavailable GIGI ROCA Unavailable [address] + [place] [address] BHARATHI NELSON Unavailable [address] + [address] [place] [address] D Unavailable Unavailable Unavailable GIGI ROCA Unavailable [address] + [place] [address] BHARATHI NELSON Unavailable [address] + [address] [place] [address] D Unavailable Unavailable Unavailable GIGI ROCA Unavailable [address] + [place] [address] BHARATHI NELSON Unavailable [address] + [address] [place] [address] D Unavailable Unavailable Unavailable GIGI ROCA Unavailable [address] + [place] [address] BHARATHI NELSON Unavailable [address] + [address] [place] [address] D Unavailable Unavailable Unavailable GIGI ROCA Unavailable [address] + [place] [address] BHARATHI NELSON Unavailable [address] + [address] [place] [address] D Unavailable Unavailable Unavailable GIGI ROCA Unavailable [address] + [place] [address] BHARATHI NELSON Unavailable [address] + [address] [place] [address] D Unavailable Unavailable Unavailable GIGI ROCA Unavailable [address] + [place] [address] BHARATHI NELSON Unavailable [address] + [address] [place] [address] D Unavailable Unavailable Unavailable GIGI ROCA Unavailable [address] + [place] [address] BHARATHI NELSON Unavailable [address] + [address] [place] [address] D Unavailable Unavailable Unavailable CHANELLEGIGI Unavailable [address] + [place] [address] BHARATHI NELSON Unavailable [address] + [address] [place] [address] D Unavailable Unavailable Unavailable CHANELLE GIGI Unavailable [address] + [place] [address] BHARATHI NELSON Unavailable [address] + [address] [place] [address] D Unavailable Unavailable Unavailable CHANELLE GIGI Unavailable [address] + [place] [address] BHARATHI NELSON Unavailable [address] + [address] [place] [address] D Unavailable Unavailable Unavailable CHANELLE GIGI Unavailable [address] + [place] [address] BHARATHI NELSON Unavailable [address] + [address] [place] [address] D Unavailable Unavailable Unavailable CHANELLE GIGI Unavailable [address] + [place] [address] BHARATHI NELSON Unavailable [address] + [address] [place] [address] D Unavailable Unavailable Unavailable CHANELLE GIGI Unavailable [address] + [place] [address] BHARATHI NELSON Unavailable [address] + [address] [place] [address] D Unavailable Unavailable Unavailable CHANELLE GIGI Unavailable [address] + [place] [address] BHARATHI NELSON Unavailable [address] + [address] [place] [address] D Unavailable Unavailable Unavailable CHANELLE GIGI Unavailable [address] + [place] [address] BHARATHI NELSON Unavailable [address] + [address] [place] [address] D Unavailable Unavailable Unavailable CHANELLE GIGI Unavailable [address] + [place] [address] BHARATHI NELSON Unavailable [address] + [address] [place] [address] D Unavailable Unavailable Unavailable CHANELLE GIGI Unavailable [address] + [place] [address] BHARATHI NELSON Unavailable [address] + [address] [place] [address] D Unavailable Unavailable Unavailable CHANELLE GIGI Unavailable [address] + [place] [address] BHARATHI NELSON Unavailable [address] + [place] [address] D Unavailable Unavailable Unavailable CHANELLE GIIG Unavailable [address] + [place] [address] BHARATHI NELSON Unavailable [address] + [place] [address] D Unavailable Unavailable Unavailable CHANELLE GIGI Unavailable [address] + [place] [address] BHARATHI NELSON Unavailable [address] + [place] [address] Care Team Providers Name Role Phone Lawrence Dozier Primary Care Unavailable Nicolas Rey Attending Unavailable [facility] Primary Care Unavailable Eric Desir Admitting Unavailable Fernando, Jayaprakash Consulting Unavailable Ashelfah, Ghasem Attending Unavailable Nolvia, Mayaman Consulting Unavailable Curry Carreno Consulting Unavailable Eric Desir Admitting Unavailable Eric, Sha Attending Unavailable Dozier Lawrence Primary Care Unavailable Eric Desir Consulting Unavailable Eric Desir Admitting Unavailable Ashelfah, Ghasem Attending Unavailable DozierLawrence Primary Care Unavailable Fernando, Jayaprakash Consulting Unavailable Nolvia, Lapman Consulting Unavailable Curry Carreno Consulting Unavailable Ashelfah, Ghasem Consulting Unavailable Eric Desir Admitting Unavailable Ashelfah, Ghasem Attending Unavailable Dozier Lawrence Primary Care Unavailable Fernando, Jayaprakash Consulting Unavailable Nolvia, Lapman Consulting Unavailable Wai, Curry Consulting Unavailable Ashelfah, Ghasem Consulting Unavailable Thang Eric Admitting Unavailable Ashelfah, Ghasem Attending Unavailable Dozier, Lawrence Primary Care Unavailable Fernando, Jayaprakash Consulting Unavailable Nolvia, Lapman Consulting Unavailable Wai, Curry Consulting Unavailable Ashelfah, Ghasem Consulting Unavailable Dozier, Lawrence Attending Unavailable Dozier, Lawrence Primary Care Unavailable Dozier, Lawrence Attending Unavailable Dozier, Lawrence Primary Care Unavailable Koram, Arlene Rachele Admitting Unavailable Koram, Arlene Rachele Referring Unavailable Dozier, Lawrence Primary Care Unavailable Fernando, Jayaprakash Consulting Unavailable Koram, Arlene Rachele Attending Unavailable Koram, Arlene Rachele Consulting Unavailable Koram, Arlene Rachele Admitting Unavailable Koram, Arlene Rachele Attending Unavailable Koram, Arlene Rachele Referring Unavailable Dozier, Lawrence Primary Care Unavailable Fernando, Jayaprakash Consulting Unavailable Koram, Arlene Rachele Consulting Unavailable Dozier, Lawrence Primary Care Unavailable Koram, Arlene Rachele Admitting Unavailable Koram, Arlene Rachele Attending Unavailable Koram, Arlene Rachele Referring Unavailable Fernando, Jayaprakash Consulting Unavailable Eric Spann Attending Unavailable Gbaruk, Kombian Admitting Unavailable Dozier, Lawrence Primary Care Unavailable Bakhous, Aziz Consulting Unavailable Katherine, Isi Attending Unavailable White, Isi Consulting Unavailable Gbaruk, Kombian Admitting Unavailable Dozier, Lawrence Primary Care Unavailable Bakhous, Aziz Consulting Unavailable Corbin Piedraic Attending Unavailable Jopperi, Nicolas Consulting Unavailable Nicolas Piedra Attending Unavailable Gbaruk, Kombian Admitting Unavailable Dozier, Lawrence Primary Care Unavailable Bakhous, Aziz Consulting Unavailable Jopperi, Nicolas Consulting Unavailable Gbaruk, Kombian Admitting Unavailable Dozier, Lawrence Primary Care Unavailable Gbaruk, Kombian Consulting Unavailable Eric, Sha Attending Unavailable Dozier, Lawrence Primary Care Unavailable Gbaruk, Kombian Admitting Unavailable Bakhous, Aziz Consulting Unavailable Katherine, Isi Attending Unavailable Eric Arteaga Attending Unavailable Jenni Eric Referring Unavailable Dozier, Lawrence Primary Care Unavailable Eric Arteaga Attending Unavailable Dozier, Lawrence Primary Care Unavailable Eric Arteaga Attending Unavailable Jenni Eric Referring Unavailable Dozier, Lawrence Primary Care Unavailable Gbaruk, Jovanymaykelian Admitting Unavailable Dozier, Lawrence Primary Care Unavailable Elena Morales Consulting Unavailable Jopperi, Nicolas Attending Unavailable Joppzoraida, Nicolas Consulting Unavailable PHANI MATOS Referring Unavailable MASCI, ERIC A Referring Unavailable MASCI, ERIC A Referring Unavailable MASCI, ERIC Ag Attending Unavailable MASCI, ERIC A Referring Unavailable MASCI, ERIC Ag Referring Unavailable CORNIELLOAPOLONIA (TIMBER HARVESTER OPERATOR) Attending Unavailable MASCI, ERIC Ag Attending Unavailable MASCI, ERIC A Referring Unavailable MASCI, ERIC A Referring Unavailable MASCI, ERIC Ag Referring Unavailable MASCI, ERIC Ag Referring Unavailable MASCI, ERIC Ag Referring Unavailable MASCI, ERIC Ag Referring Unavailable MASCI, ERIC Ag Referring Unavailable DOZIER, LAWRENCE L Attending Unavailable DOZIER, LAWRENCE L Referring Unavailable DOZIER, LAWRENCE L Referring Unavailable DOZIER, LAWRENCE L Referring Unavailable MASCI, ERIC Ag Attending Unavailable MASCI, ERIC Ag Referring Unavailable MASCI, ERIC Ag Referring Unavailable MASCI, ERIC Ag Referring Unavailable DOZIER, LAWRENCE L Referring Unavailable DOZIER, LAWRENCE L Referring Unavailable MASCI, ERIC Ag Referring Unavailable TABBY, EUGENIA Freed Attending Unavailable DOZIER, LAWRENCE L Referring Unavailable MASCI, ERIC Ag Referring Unavailable MASCI, ERIC Ag Referring Unavailable MASCI, ERIC Ag Referring Unavailable MASCI, ERIC Ag Referring Unavailable MASCI, ERIC Ag Referring Unavailable MASCI, ERIC Ag Referring Unavailable TABBY, EUGENIA Freed Attending Unavailable NOLVIATHANIA Referring Unavailable DOZIER, LAWRENCE L Attending Unavailable DOZIER, LAWRENCE L Referring Unavailable TABBY, EUGENIA Freed Referring Unavailable HAAGENYUDI (TIMBER HARVESTER OPERATOR) Attending Unavailable MASCI, ERIC Ag Attending Unavailable MASCI, ERIC A Referring Unavailable MASCI, ERIC A Referring Unavailable MASCI, ERIC Ag Referring Unavailable MASCI, ERIC Ag Attending Unavailable MASCI, ERIC Ag Referring Unavailable DOZIER, LAWRENCE L Referring Unavailable MASCI, ERIC Ag Referring Unavailable MASCI, ERIC Ag Attending Unavailable MASCI, ERIC Ag Referring Unavailable MASCI, ERIC Ag Referring Unavailable CARLOPHANI Attending Unavailable CARLO, PHANI Alanis Referring Unavailable CARLOPHANI BESS Referring Unavailable MASCI, ERIC A Referring Unavailable MASCI, ERIC A Referring Unavailable MASCI, ERIC A Referring Unavailable MASCI, ERIC A Referring Unavailable MASCI, ERIC Ag Referring Unavailable MASCI, ERIC A Referring Unavailable MASCI, ERIC A Referring Unavailable MASCI, ERIC A Attending Unavailable MASCI, ERIC A Referring Unavailable MASCI, ERIC A Referring Unavailable MASCI, ERIC A Referring Unavailable MASCI, ERIC A Referring Unavailable NOLVIA, THANIA Referring Unavailable MASCI, ERIC A Referring Unavailable MASCI, ERIC A Referring Unavailable MASCI, ERIC A Attending Unavailable MASCI, ERIC A Referring Unavailable MASCI, ERIC A Referring Unavailable DOZIER, LAWRENCE L Attending Unavailable DOZIER, LAWRENCE Ferguson Referring Unavailable MASCI, ERIC A Referring Unavailable MASCI, ERIC A Referring Unavailable MASCI, ERIC A Referring Unavailable MASCI, ERIC A Referring Unavailable MASCI, ERIC A Referring Unavailable MASCI, ERIC A Attending Unavailable MASCI, ERIC A Referring Unavailable MASCI, ERIC A Referring Unavailable MASCI, ERIC A Referring Unavailable MASCI, ERIC A Referring Unavailable MASCI, ERIC A Referring Unavailable MASCI, ERIC A Referring Unavailable MASCI, ERIC A Referring Unavailable MASCI, ERIC A Referring Unavailable MASCI, ERIC A Attending Unavailable MASCI, ERIC A Referring Unavailable MASCI, ERIC A Referring Unavailable MASCI, ERIC A Referring Unavailable MASCI, ERIC A Referring Unavailable MASCI, ERIC A Referring Unavailable MASCI, ERIC A Referring Unavailable MASCI, ERIC A Referring Unavailable MASCI, ERIC A Referring Unavailable MASCI, ERIC A Referring Unavailable MASCI, ERIC A Referring Unavailable DOZIER, LAWRENCE L Attending Unavailable MASCI, ERIC A Referring Unavailable MASCI, ERIC A Attending Unavailable MASCI, ERIC A Referring Unavailable MASCI, ERIC A Referring Unavailable NOLVIA, THANIA Referring Unavailable MASCI, ERIC A Referring Unavailable CARLO, PHANI Attending Unavailable CARLO, PHANI Referring Unavailable DOZIER, LAWRENCE L Primary Care Unavailable PROBLEMS PROBLEMS DATE TYPE CONDITION / CODE ATTENDING STATUS SOURCE 01/24/2018 Unknown G47.33 - Obstructive Dozier, Active [place] sleep apnea (adult) [facility] (pediatric) / Hospital G47.33(ICD-10) Repository 09/05/2017 Active Atherosclerotic heart NA Active [place] [facility] [place] [facility] Main coronary artery [place] without angina Repository pectoris / I25.10(ICD-10) 08/06/2017 Active Other group home NA Active [place] (current) drug therapy 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 Main respiratory organs / [place] C78.39(ICD-10) Repository 06/12/2017 Active Other abnormal and NA Active [place] inconclusive findings Clinic Main on diagnostic imaging [place] of breast / Repository R92.8(ICD-10) 05/16/2017 Active Unknown / UNK(Unknown) NA Active [place] [facility] Main [place] Repository 05/11/2017 Active Encounter for NA Active [place] screening mammogram Clinic Main for malignant neoplasm [place] of breast / Repository Z12.31(ICD-10) 05/11/2017 Active Pure hyperglyceridemia NA Active [place] / E78.1(ICD-10) Clinic Main [place] Repository 04/04/2017 Unknown N18.6 - End stage MascEric graham Active [facility] renal disease / Community N18.6(ICD-10) Hospital Repository 04/03/2017 Unknown C33 - Malignant Masci, 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 / Community C33(ICD-10) Hospital Repository 04/03/2017 Unknown C34.80 - Malignant Masci, Eric Active [place] neoplasm of Community overlapping sites of Hospital unspecified bronchus Repository and lung / C34.80(ICD-10) 04/03/2017 Unknown R79.1 - Abnormal Masci, Eric Active [facility] coagulation profile / Community R79.1(ICD-10) Hospital Repository 09/07/2016 Active Malignant neoplasm of NA Active [place] trachea / C33(ICD-10) Clinic Main [place] Repository 09/07/2016 Active Malignant neoplasm of NA Active [place] overlapping sites of Clinic Main unspecified bronchus [place] and lung / Repository C34.80(ICD-10) 04/02/2017 Active Abnormal coagulation NA Active [place] profile / Clinic Main R79.1(ICD-10) [place] Repository 09/22/2016 Active Secondary malignant NA Active [place] neoplasm of right lung Clinic Main / C78.01(ICD-10) [place] Repository 09/22/2016 Active Malignant neoplasm of NA Active [place] endocervix / Clinic Main C53.0(ICD-10) [place] Repository 03/16/2017 Active Dizziness and NA Active [place] giddiness / Clinic Main R42(ICD-10) [place] Repository PROCEDURES PROCEDURES No Procedure Records FoundRESULTS RESULTS [place] ABS GR + CBC Collected: 03/13/2018 Status: F Source: [place] 12:[address] [facility] REPOSITORY TYPE CODE TESTS RESULT OUT OF REFERENCE UNITS RANGE LAB WWBC 3.70-11.00 k/uL [place] WBC 7.59 LAB WRBC 3.90-5.20 m/uL Low [place] RBC 3.43 LAB WHGB 11.5-15.5 g/dL Low [place] Hemoglobin 10.1 LAB WHCT 36.0-46.0 % Low [place] Hematocrit 32.0 LAB WMCV 80.0-100.0 fL [place] MCV 93.3 LAB WMCH 26.0-34.0 pg [place] MCH 29.4 LAB WMCHC 30.5-36.0 g/dL [place] MCHC 31.6 LAB WRDW 11.5-15.0 % [facility] High RDW 16.1 LAB WPLT 150-400 k/uL [place] Platelet Cnt 320 LAB WMPV 9.0-12.7 fL [place] MPV 9.5 Result Comment: Test performed at: [facility], [address] [place] [address] Rd[address] [place] [address]. LAB ABGRAN 1.45-7.50 k/uL Absol Gran 6.14 Count PROGRESS Observed: 03/04/2018 Status: COMPLETED Source: [place] 3:[address] [facility] REPOSITORY HNO ID: [id number] Author: Eric Arteaga Service: (none) Author Type: Physician Type: Progress Notes Filed: 03/04/2018 3:25 PM Note Text: Diagnoses: Cervical cancer and RCC. HPI: Underwent a left sided laparoscopic nephrectomy. The pathology demonstrated a T3 (7 cm) clear cell, renal cell carcinoma. Additionally, at the same time patient underwent a laparoscopic, left pelvic, lymph node dissection and right, periaortic, lymph node biopsy with lysis of adhesions. It appeared that the possible pelvic adenopathy visualized on a PET scan may have been due to a left sided hydrosalpinx and possibly enlarged left ovary. A one enlarged retroperitoneal lymph node was visualized, it was removed and it was found not to contain metastatic cancer. Previous therapy: 1. 04/29/2010 - multiple cervical and vaginal biopsies. 2. 08/17/2009 - Laparoscopic left pelvic lymph node dissection and right periaortic lymph node biopsies, lysis of adhesions. one enlarged retroperitoneal lymph node was visualized, it was removed and it was found not to contain metastatic cancer 3. 08/17/2009 - Laparoscopic left radical nephrectomy. The pathology demonstrated a T3 (7 cm) clear cell, renal cell carcinoma. (Dr Ac) 4. Concurrent Cisplatin/RT 09/13/09 - 10/15/09. Total RT dose 4500 cGy in 25 fx. 5. Shaheen template for brachytherapy with Dr. Vasquez, total dose 2250cGy in 5 fractions 10/27/09-10/29/09. 6. 04/29/2010 - Multiple cervical and vaginal biopsies, negative for recurrent disease 7. 06/10/2010 - Exploratory laparotomy, lysis of adhesions, bilateral pelvic lymphadenectomy. This case was done in conjunction with Dr. 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 8. 06/22/2011 - Exam under anesthesia with cystoscopy. This case was done in conjunction with Dr. Ernesto Burton, who performed exam under anesthesia, biopsies, and curettage of the right pubic ramus with irrigation. 9. 09/07/2011 - Total pelvic exenteration with ileal conduit (Dr. Strong), creation of neovagina (Dr. Polanco) and right pubic ramus biopsies (Dr. Burton). 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 All lymph nodes negative. 10. 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 S/P SBRT to RML (50 Gy in 5 fx from 01/18/2015-01/27/2015. 11. Palliative radiation to the trachea and right lung 10/09/16 to 10/30/16. EGD 11/2013: The examined esophagus was normal. The entire examined stomach was normal. Biopsies were taken with a cold forceps for histology. Estimated blood loss was minimal. The examined duodenum was normal. Biopsies were taken with a cold forceps for evaluation of celiac disease. Estimated blood loss was minimal. Impression: - Normal esophagus. - Normal stomach. Biopsied. - Normal examined duodenum. Biopsied. Colonoscopy 11/2013: The colon (entire examined portion) appeared normal. Impression: - The entire examined colon is normal. Recent CT Noncontrast CT scan of the chest demonstrating interval enlargement of a right middle lobe medial irregularly marginated soft tissue mass. There is subpleural fat deposition at the left lung base with 2 small nodules, the more medial slightly increased in size. There are also 2 diaphragmatic pleural-based nodules which may be stable. She had been undergoing dialysis for about a year. She underwent pelvic exoneration. She developed obstructive uropathy leading to end-stage renal disease. I received a brief note from her dial brusher indicating that the patient has been receiving maximum doses of Procrit and she has been running hemoglobin in the 's. 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 S/P SBRT to RML (50 Gy in 5 fx from 01/18/2015-01/27/2015. Previous therapy: As above. 1) Radiation to trachea and right lung. 2) Taxol. 3) Neratinib. Didn't tolerate--diarrhea. Current therapy: 1) Taxol. Presents for ongoing oncologic management. Interim history: No complaints today. She was hospitalized for another episode of pneumonia in mid-January. Since discharge she feels her estrogen status is been stable. She is not short of breath at rest or with walking. Her cough in terms of frequency and character is largely unchanged. Hycodan helps quite a bit especially helps her get some sleep. Minimal sputum production at this point. She's had no hemoptysis. No wheezing. Her appetite waxes and wanes. She has generalized fatigue. Has developed mild numbness in the toes. No symptoms in the hands or fingers. PMH, medications and allergies personally reviewed by me today. Any changes documented in appropriate section. ROS: Constitutional: Denies episodes of night sweats. Neuro: Denies POND, vertigo and imbalance. HEENT: No recent change in voice, vision or hearing. CVS: Denies exertional chest pain, PND, orthopnea and LE edema. GI: Denies reflux and abdominal pain. No symptoms of stomatitis. : Still gets small amount of urine. Endo: No hot flashes. Derm: No rash. Heme: No unusual bleeding or bruising. Psych: Normal mood. PHYSICAL EXAM: Vitals: Blood pressure 129/62, pulse 95, temperature 36.6 ?C (97.9 ?F), temperature source Temporal Artery, weight 77.3 kg (170 lb 8 oz). Well-appearing and in no acute distress. EYES: Sclerae are anicteric bilaterally. NECK: Supple. LYMPHATIC: There is no palpable cervical, supraclavicular adenopathy. RESPIRATORY: Very diminished breath sounds throughout the entire right hemithorax. No wheeze or rhonchi appreciated today. CARDIOVASCULAR: Rhythm is regular. ABDOMEN: The abdomen is nondistended. No tenderness. Extremities: Free of edema. SKIN: No jaundice or rash. No petechiae. 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 No focal motor weakness. 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 -ER/KS negative tumor. -She tolerated single agent Taxol symptomatically very well in the past but required RBC transfusional support. 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 -Tolerating Taxol well. -Previously discussed advanced directives and healthcare power of contracts attorney. Plan: -Continue Taxol. -Monitor CBC for possible transfusion every week. -Hycodan for symptomatic control of cough. -CT chest prior to next cycle. If progressive disease then consideration of Neratinib. DO [place] M[place] ABS GR + CBC Collected: 03/04/2018 Status: F Source: [place] 3:01 PM [facility] REPOSITORY TYPE CODE TESTS RESULT OUT OF REFERENCE UNITS RANGE LAB WWBC 3.70-11.00 k/uL [place] WBC 4.78 LAB WRBC 3.90-5.20 m/uL Low [place] RBC 3.63 LAB WHGB 11.5-15.5 g/dL Low [place] Hemoglobin 10.7 LAB WHCT 36.0-46.0 % Low [place] Hematocrit 33.7 LAB WMCV 80.0-100.0 fL [place] MCV 92.8 LAB WMCH 26.0-34.0 pg [place] MCH 29.5 LAB WMCHC 30.5-36.0 g/dL [place] MCHC 31.8 LAB WRDW 11.5-15.0 % [place] High RDW 16.9 LAB WPLT 150-400 k/uL [place] Platelet Cnt 205 LAB WMPV 9.0-12.7 fL [place] MPV 9.2 Result Comment: Test performed at: [facility], [address] [place] [address] Rd[address] [place] [address]. LAB ABGRAN 1.45-7.50 k/uL Absol Gran 3.38 Count HEPATIC FUNCTN PANEL Collected: 03/04/2018 Status: F Source: [place] 3:[address] [facility] REPOSITORY TYPE CODE TESTS RESULT OUT OF REFERENCE UNITS RANGE LAB ALB 3.9-4.9 g/dL Low Albumin 3.5 LAB TBIL 0.2-1.3 mg/dL Bilirubin, Total 0.3 LAB CBIL <0.2 mg/dL Bilirubin,Conjuga <0.2 jp LAB ALKP 34-123 U/L Alkaline Phosphatase 68 LAB AST 13-35 U/L AST 19 LAB ALT 7-38 U/L ALT 8 LAB TP 6.3-8.0 g/dL Protein, Total 6.7 CNOVSP Observed: 03/04/2018 Status: COMPLETED Source: [place] 2:[address] [facility] REPOSITORY Visit (SP) Office ([facility]MA[facility]) YUN NELSON ([id number]) 1960 F Date Time Provider Department 03/04/18 2:50 PM [facility] During your visit today, we recorded the following information about you: Temperature Pulse Blood pressure Weight 97.9 degrees 95/minute 129/62 77.3 kg Eric Arteaga DO 03/04/2018 3:25 PM Signed Diagnoses: Cervical cancer and RCC. HPI: Underwent a left sided laparoscopic nephrectomy. The pathology demonstrated a T3 (7 cm) clear cell, renal cell carcinoma. Additionally, at the same time patient underwent a laparoscopic, left pelvic, lymph node dissection and right, periaortic, lymph node biopsy with lysis of adhesions. It appeared that the possible pelvic adenopathy visualized on a PET scan may have been due to a left sided hydrosalpinx and possibly enlarged left ovary. A one enlarged retroperitoneal lymph node was visualized, it was removed and it was found not to contain metastatic cancer. Previous therapy: 1. 04/29/2010 - multiple cervical and vaginal biopsies. 2. 08/17/2009 - Laparoscopic left pelvic lymph node dissection and right periaortic lymph node biopsies, lysis of adhesions. one enlarged retroperitoneal lymph node was visualized, it was removed and it was found not to contain metastatic cancer 3. 08/17/2009 - Laparoscopic left radical nephrectomy. The pathology demonstrated a T3 (7 cm) clear cell, renal cell carcinoma. (Dr Ac) 4. Concurrent Cisplatin/RT 09/13/09 - 10/15/09. Total RT dose 4500 cGy in 25 fx. 5. Shaheen template for brachytherapy with Dr. Vasquez, total dose 2250cGy in 5 fractions 10/27/09-10/29/09. 6. 04/29/2010 - Multiple cervical and vaginal biopsies, negative for recurrent disease 7. 06/10/2010 - Exploratory laparotomy, lysis of adhesions, bilateral pelvic lymphadenectomy. This case was done in conjunction with Dr. 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 8. 06/22/2011 - Exam under anesthesia with cystoscopy. This case was done in conjunction with Dr. Ernesto Burton, who performed exam under anesthesia, biopsies, and curettage of the right pubic ramus with irrigation. 9. 09/07/2011 - Total pelvic exenteration with ileal conduit (Dr. Strong), creation of neovagina (Dr. Polanco) and right pubic ramus biopsies (Dr. Burton). 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 All lymph nodes negative. 10. 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 S/P SBRT to RML (50 Gy in 5 fx from 01/18/2015-01/27/2015. 11. Palliative radiation to the trachea and right lung 10/09/16 to 10/30/16. EGD 11/2013: The examined esophagus was normal. The entire examined stomach was normal. Biopsies were taken with a cold forceps for histology. Estimated blood loss was minimal. The examined duodenum was normal. Biopsies were taken with a cold forceps for evaluation of celiac disease. Estimated blood loss was minimal. Impression: - Normal esophagus. - Normal stomach. Biopsied. - Normal examined duodenum. Biopsied. Colonoscopy 11/2013: The colon (entire examined portion) appeared normal. Impression: - The entire examined colon is normal. Recent CT Noncontrast CT scan of the chest demonstrating interval enlargement of a right middle lobe medial irregularly marginated soft tissue mass. There is subpleural fat deposition at the left lung base with 2 small nodules, the more medial slightly increased in size. There are also 2 diaphragmatic pleural-based nodules which may be stable. She had been undergoing dialysis for about a year. She underwent pelvic exoneration. She developed obstructive uropathy leading to end-stage renal disease. I received a brief note from her dial brusher indicating that the patient has been receiving maximum doses of Procrit and she has been running hemoglobin in the 9's. 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 S/P SBRT to RML (50 Gy in 5 fx from 01/18/2015-01/27/2015. Previous therapy: As above. 1) Radiation to trachea and right lung. 2) Taxol. 3) Neratinib. Didn't tolerate--diarrhea. Current therapy: 1) Taxol. Presents for ongoing oncologic management. Interim history: No complaints today. She was hospitalized for another episode of pneumonia in mid- January. Since discharge she feels her estrogen status is been stable. She is not short of breath at rest or with walking. Her cough in terms of frequency and character is largely unchanged. Hycodan helps quite a bit especially helps her get some sleep. Minimal sputum production at this point. She's had no hemoptysis. No wheezing. Her appetite waxes and wanes. She has generalized fatigue. Has developed mild numbness in the toes. No symptoms in the hands or fingers. PMH, medications and allergies personally reviewed by me today. Any changes documented in appropriate section. ROS: Constitutional: Denies episodes of night sweats. Neuro: Denies POND, vertigo and imbalance. HEENT: No recent change in voice, vision or hearing. CVS: Denies exertional chest pain, PND, orthopnea and LE edema. GI: Denies reflux and abdominal pain. No symptoms of stomatitis. : Still gets small amount of urine. Endo: No hot flashes. Derm: No rash. Heme: No unusual bleeding or bruising. Psych: Normal mood. PHYSICAL EXAM: Vitals: Blood pressure 129/62, pulse 95, temperature 36.6 ?C (97.9 ?F), temperature source Temporal Artery, weight 77.3 kg (170 lb 8 oz). Well-appearing and in no acute distress. EYES: Sclerae are anicteric bilaterally. NECK: Supple. LYMPHATIC: There is no palpable cervical, supraclavicular adenopathy. RESPIRATORY: Very diminished breath sounds throughout the entire right hemithorax. No wheeze or rhonchi appreciated today. CARDIOVASCULAR: Rhythm is regular. ABDOMEN: The abdomen is nondistended. No tenderness. Extremities: Free of edema. SKIN: No jaundice or rash. No petechiae. 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 No focal motor weakness. 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 -ER/KS negative tumor. -She tolerated single agent Taxol symptomatically very well in the past but required RBC transfusional support. 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 -Tolerating Taxol well. -Previously discussed advanced directives and healthcare power of contracts attorney. Plan: -Continue Taxol. -Monitor CBC for possible transfusion every week. -Hycodan for symptomatic control of cough. -CT chest prior to next cycle. If progressive disease then consideration of Neratinib. Eric Arteaga DO Referring Provider: ERIC ARTEAGA [[id number]] Allergies As of Date: 03/04/2018 (No Known Allergies) Date Reviewed: 03/04/2018 Reviewed by: Cheyenne Jane - Fully Assessed Reason for Visit: Established Patient [175] Primary Visit Diagnosis: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] Other Visit Diagnoses:Malignant neoplasm metastatic to right lung (HCC) [C78.01] Cough [R05] Neoplasm of lung [D49.1] Order(s):HYDROcodone-homatropine (HYDROMET) 5-1.5 mg/5 mL (5 mL) syrupTake 5 mL by mouth four times daily as needed for up to 14 days. Earliest Fill Date: 03/04/18Disp: 240 mLRfl: 0 CT CHEST W IVCON [[id number]] Order #: [id number] FUTURE iv contrast (will be provided with radiology test)CT Chest W -Inject, intravenously, once for 1 dose.No IV access, insert saline lock prior to the beginning of sedation, infusion, injection of imaging exam. Discontinue saline lock post exam. If Pt. has a central line or IVAD, may access for administration according to line specific nursing protocol. Once exam is complete flush line and de- access according to line specific nursing protocol in the CT contrast administration guidelines link.Disp: 1 EachRfl: 0 Follow-up and Disposition History Recorded Prescriptions as of 03/04/2018 Sig: HYDROCODONE-HOMATROPINE 5 MG-* Take 5 mL by mouth four times* ALBUTEROL SULFATE 2.5 MG/3 ML* INHALE 1 VIAL VIA NEBULIZER E* ASCORBIC ACID (VITAMIN C) 500* Take 500 mg by mouth once lesia* DIPHENOXYLATE-ATROPINE 2.5 MG* Take 1-2 tablets by mouth pipo* ALBUTEROL SULFATE HFA 90 MCG/* Inhale 2 Puffs as instructed * NERATINIB 40 MG TABLET Take 6 tablets by mouth once * ONDANSETRON HCL 8 MG TABLET Take 1 tablet by mouth every * LISINOPRIL 20 MG TABLET Take 1 tablet by mouth twice * ERGOCALCIFEROL (VITAMIN D2) 5* Take 1 capsule by mouth once * CLOBETASOL 0.05 % TOPICAL CRE* Apply 1 application to affect* FOLIC ACID 1 MG TABLET Take 1 tablet by mouth once d* STOOL SOFTENER 100 MG CAPSULE TAKE 1 CAPSULE TWICE A DAY AMLODIPINE 10 MG TABLET Take 10 mg by mouth once adolfo* FAMOTIDINE 20 MG TABLET Take 1 tablet by mouth twice * CALCIUM ACETATE 667 MG TABLET Take 667 mg by mouth three ti* VITAMIN B COMPLEX AND VITAMIN* Take 1 capsule by mouth once * ACETAMINOPHEN 325 MG TABLET Take 650 mg by mouth every 6 * IV CONTRAST (RADIOLOGY PROCED* CT Chest W -Inject, intraveno* COMPOUNDED PRESCRIPTION Dx: ABDIAS Order: Bipap , * [id number]* Take 10 mL by mouth every 4 h* Medication notes this encounter NERATINIB 40 MG TABLET >> Eric Arteaga DO 03/04/2018 3:24 PM >> ERIC ARTEAGA DO SunMar 04, 2018 3:24 PM Please do not remove from med list. Problem List As Of Date 03/04/2018 Noted Resolved Obesity [E66.9] INVALID FOR*09/13/2010 Pallor [R23.1] INVALID FOR*07/10/2009 LBP (low back pain) [M54.5] INVALID FOR*10/25/2012 Vomiting [R11.10] INVALID FOR*09/13/2010 Anemia due to blood loss [D50.0] INVALID FOR*12/27/2009 Dyspnea [R06.00] INVALID FOR*08/26/2009 Chest Pain [R07.9] INVALID FOR*08/26/2009 Cervix cancer [C53.9] INVALID FOR*10/25/2012 More... 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 Radiation cystitis [N30.40] INVALID FOR*10/25/2012 S/P ileal conduit [Z93.6] INVALID FOR*10/25/2012 SUMMARY [V999.95] INVALID FOR* More... Progressively worsening kidney function [N18.9]INVALID FOR*04/03/2017 More... Hx of cervical cancer [Z85.41] INVALID FOR* More... H/o Renal cell cancer [C64.9] INVALID FOR* More... DVT prophylaxis [ZCR2424] INVALID FOR*11/02/2012 More... DISPOSITION AND FOLLOW-UP [V999.01] INVALID FOR*11/02/2012 More... Iron deficiency anemia [D50.9] INVALID FOR* More... Euthyroid sick syndrome [E07.81] INVALID FOR* More... Osteomyelitis [M86.9] INVALID FOR* More... Renal failure [N19] INVALID FOR*04/03/2017 End stage renal disease (HCC) [N18.6] INVALID FOR*04/03/2017 Anemia [D64.9] Primary lung cancer with metastasis from lung t*INVALID FOR*09/22/2016 Right middle lobe pneumonia [J18.1] INVALID FOR* Chronic kidney disease, stage V (HCC) [N18.5] More... Cancer of trachea, bronchus, and lung (HCC) [C3*INVALID FOR* More... 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] INVALID FOR* Dialysis patient (HCC) [Z99.2] INVALID FOR* Essential hypertension with goal blood pressure*INVALID FOR* Primary lung cancer with metastasis from lung t*INVALID FOR* Diastolic dysfunction [I51.9] INVALID FOR* Mitral valve insufficiency [I34.0] INVALID FOR* Rash and nonspecific skin eruption [R21] INVALID FOR* Elevated TSH [R79.89] INVALID FOR* Dyspepsia [R10.13] INVALID FOR* ESRD on hemodialysis (HCC) [N18.6, Z99.2] INVALID FOR*04/03/2017 Anemia, chronic renal failure, stage 5 (HCC) [N*INVALID FOR* Acute on chronic diastolic congestive heart gisell*INVALID FOR* ESRD (end stage renal disease) on dialysis (HCC*INVALID FOR* Snoring [R06.83] INVALID FOR* PND (paroxysmal nocturnal dyspnea) [R06.00] INVALID FOR* Fatigue [R53.83] INVALID FOR* Encounter Status:Closed by ERIC ARTEAGA DO on 03/04/18 PROGRESS Observed: 02/22/2018 Status: COMPLETED Source: [place] 12:06 PM [employer] [facility] REPOSITORY HNO ID: [id number] Author: Lawrence Dozier Service: (none) Author Type: Physician Type: Progress Notes Filed: 02/22/2018 12:09 PM Note Text: CC: Yun Nelson is a 57 year old female who presents to the office for follow up sleep study HPI: Recently had a PSG that showed concerns for ABDIAS, she then had a PAP PSG titration study. Reviewed results with her today, she has severe ABDIAS, need for Bipap, She is willing to start machine, Still struggling with daytime hypersomnolence symptoms and snoring and PND symptoms as well. PAST MEDICAL HISTORY Diagnosis Date - Acute on chronic diastolic congestive heart failure ([facility]) 08/08/2017 - Amblyopia vision loss right eye - Anemia - Anemia, chronic renal failure, stage 5 ([facility]) 06/14/2017 - Arthritis - Bowel disease Gastritis - Cancer of trachea, bronchus, and lung ([facility]) 09/04/2016 Adenocarcinoma. Visible endobronchial tumor in trachea, R main bronchus and BI. - Cervix cancer ([facility]) 07/05/2009 Presumed at least stage IIb cervical cancer, radiation completed 10/15/09 - Chronic kidney disease, stage V ([facility]) on HD Madisyn Salmon Sat, Shredding Specialist Dr. Moy - Colostomy status ([facility]) - DDD (degenerative disc disease), lumbar 12/09/2010 - Essential hypertension with goal blood pressure less than 140/90 02/02/2017 - Euthyroid sick syndrome 10/28/2012 - Fistula, arteriovenous, acquired ([facility]) for HD, right upper arm - Iron deficiency anemia Hx of requiring iron infusion - Left clear cell Renal cancer 07/05/2009 Left: 7 cm, T2, Clear Cell RCC, Gr 2/4 - Lung cancer, middle lobe ([facility]) 2014 s/p radiation - Osteomyelitis of pelvic region ([facility]) 06/2011 pubic ramus - Peripheral vascular disease ([facility]) Pt. states this has NOT been an issue - Personal history of unspecified urinary disorder PAST SURGICAL HISTORY Procedure Laterality Date - BRONCHOSCOPY - COLONOSCOP W/ OR W/O [facility] SPEC 12/27/2009 recto-vaginal fistula - COLONOSCOP W/ OR W/O [facility] SPEC 12/03/2013 normal - COLOSTOMY 06/10/10 - EGD W/O OR W/BRUSH/WASH 12/27/2009 EGD - EGD W/O OR W/BRUSH/WASH 12/03/2014 normal - INSRT UTER TANDMS/VAG OVOIDS 10/26/09 INSERT UTERINE TANDEMS FOR CLINICAL BRACHYTHERAPY performed by ADELA JOY at OR - LAPAROSCOPIC NEPHRECTOMY 08/17/2009 Left: pT2, Clear Cell RCC, 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 - PAST SURGICAL HISTORY OF 06/22/11 Debridement R inf pubic ramus-osteomyelitis - PAST SURGICAL HISTORY OF 06/2011 urostomy - PAST SURGICAL HISTORY OF 08/2013 surgery on right arm for dialyasis - PELVIC EXAMINATION W ANESTH 06/22/2011 EUA/cysto - PELVIC EXENTERATION 09/07/2011 Current Outpatient Prescriptions: albuterol (PROVENTIL) 2.5 mg /3 mL (0.083 %) nebulizer solution INHALE 1 VIAL VIA NEBULIZER EVERY 2 HOURS NEEDED NEEDED FOR SHORTNESS OF BREATH AND/OR WHEEZING HYDROcodone-homatropine (HYDROMET) 5-1.5 mg/5 mL (5 mL) syrup Take 5 mL by mouth four times daily as needed for up to 14 days.Earliest Fill Date: 02/08/18 ascorbic acid, vitamin C, (VITAMIN C) 500 mg tablet Take 500 mg by mouth once daily. diphenoxylate-atropine (LOMOTIL) 2.5-0.025 mg per tablet Take 1-2 tablets by mouth every 6 hours as needed for Diarrhea for up to 14 days. neratinib 40 mg tab Take 6 tablets by mouth once daily. ondansetron (ZOFRAN) 8 mg tablet Take 1 tablet by mouth every 8 hours as needed for Nausea/Vomiting. ergocalciferol, vitamin D2, (DRISDOL) 50,000 unit capsule Take 1 capsule by mouth once each week. Once weekly clobetasol (TEMOVATE) 0.05 % cream Apply 1 application to affected area twice daily. As needed for rash on arms folic acid 1 mg tablet Take 1 tablet by mouth once daily. amLODIPine (NORVASC) 10 mg tablet Take 10 mg by mouth once daily. famotidine (PEPCID) 20 mg tablet Take 1 tablet by mouth twice daily as needed (stomach upset). calcium acetate 667 mg tab Take 667 mg by mouth three times daily. b complex, c, folic acid 1 mg renal vitamins (TRIPHROCAPS) 1 mg capsule Take 1 capsule by mouth once daily. acetaminophen (TYLENOL) 325 mg tablet Take 650 mg by mouth every 6 hours as needed. COMPOUNDED PRESCRIPTION Dx: OSAOrder: Bipap /, Dreamwear small frame/small cushion full face mask interface, humidification, supplies including tubing x 1 year [id number] (BMX 1:1:1) 1:1:1 liqd Take 10 mL by mouth every 4 hours as needed. swish and spit. Do not swallow. albuterol HFA (PROAIR HFA) 90 mcg/actuation inhaler Inhale 2 Puffs as instructed every 4 hours as needed. lisinopril (ZESTRIL, PRINIVIL) 20 mg tablet Take 1 tablet by mouth twice daily. STOOL SOFTENER 100 mg capsule TAKE 1 CAPSULE TWICE A DAY No current facility-administered medications for this visit. 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 Spouse still active smoker, in home. Alcohol use: No Drug use: No Sexual activity: Yes Partners with: Male Other Topics Concern Service No Blood Transfusions Yes Caffeine Concern No Occupational Exposure No Hobby Hazards No Sleep Concern No Stress Concern No Weight Concern No Special Diet No Back Care No Exercise Yes Comment:sometimes Bike Helmet No Seat Belt No Self-Exams Yes ROS: See HPI PE: BP 120/58 Pulse 100 Temp (Src) 97.5 (Left Tympanic) Resp 20 Wt 170 lb (77.1kg) Gen: AANDOX3, NAD, non-toxic appearing, cooperative HEENT: PERRLA, EOMIs with lateral deviation right eye, nares without drainage, pharynx without erythema, exudate, lesions, or drainage. Uvula midline. MMM, poor dentition Neck: No LAD, no thyromegaly, no meningismus. CV: RRR, 3/6 HSM LUSB, LLSB?murmur, normal s1s2? Lungs: right lower and upper lobes with scattered rhonchi and wheezing, intermittent on left lower/upper lobes rhonchi, intermittent moist cough No edema Thoracic kyphosis Skin: eczematous dry rash on b/l outer arms and thighs and abdomen Fistula palpable and appears intact right upper inner arm ? ASSESSMENT/PLAN: 1. Dyslipidemia - ICD9: 272.4, ICD10: E78.5 (primary diagnosis) - to be determined upon return of lab results - Encouraged following a low fat, low cholesterol diet. - Discussed the benefits of regular aerobic exercise and weight loss. - LIPID PANEL BASIC - COMP METABOLIC PANEL - HGB A1C 2. ABDIAS (obstructive sleep apnea) - ICD9: 327.23, ICD10: G47.33 - rx for Bipap written and given to her today, she is going to stop at company to give rx today, f/u in office 1 month after starting Bipap at home - COMPOUNDED PRESCRIPTION Lawrence Dozier DO Return if no improvement. Follow up with Lawrence Dozier DO. Discussed risks, benefits, alternatives, and potential side effects of medications. Patient/Guardian expressed understanding and agreed with the plan. See patient instructions. Lawrence Dozier DO [address] [place] [address] CNOV Observed: 02/22/2018 Status: COMPLETED Source: [place] 11:[address] [facility] REPOSITORY Office Visit (FAMPWS) YUN NELSON ([id number]) 1960 F Date Time Provider Department 02/22/18 11:20 AM [facility] During your visit today, we recorded the following information about you: Temperature Pulse Respiration Blood pressure 97.5 degrees 100/minute 20/minute 120/58 Weight 77.1 kg Lawrence Dozier DO 02/22/2018 12:09 PM Signed CC: Yun Nelson is a 57 year old female who presents to the office for follow up sleep study HPI: Recently had a PSG that showed concerns for ABDIAS, she then had a PAP PSG titration study. Reviewed results with her today, she has severe ABDIAS, need for Bipap, She is willing to start machine, Still struggling with daytime hypersomnolence symptoms and snoring and PND symptoms as well. PAST MEDICAL HISTORY Diagnosis Date - Acute on chronic diastolic congestive heart failure (HCC) 08/08/2017 - Amblyopia vision loss right eye - Anemia - Anemia, chronic renal failure, stage 5 (HCC) 06/14/2017 - Arthritis - Bowel disease Gastritis - Cancer of trachea, bronchus, and lung (HCC) 09/04/2016 Adenocarcinoma. Visible endobronchial tumor in trachea, R main bronchus and BI. - Cervix cancer (HCC) 07/05/2009 Presumed at least stage IIb cervical cancer, radiation completed 10/15/09 - Chronic kidney disease, stage V ([facility]) on HD Madisyn Salmon Sat, Shredding Specialist Dr. Moy - Colostomy status ([facility]) - DDD (degenerative disc disease), lumbar 12/09/2010 - Essential hypertension with goal blood pressure less than 140/90 02/02/2017 - Euthyroid sick syndrome 10/28/2012 - Fistula, arteriovenous, acquired ([facility]) for HD, right upper arm - Iron deficiency anemia Hx of requiring iron infusion - Left clear cell Renal cancer 07/05/2009 Left: 7 cm, T2, Clear Cell RCC, Gr 2/4 - Lung cancer, middle lobe ([facility]) 2014 s/p radiation - Osteomyelitis of pelvic region ([facility]) 06/2011 pubic ramus - Peripheral vascular disease ([facility]) Pt. states this has NOT been an issue - Personal history of unspecified urinary disorder PAST SURGICAL HISTORY Procedure Laterality Date - BRONCHOSCOPY - COLONOSCOP W/ OR W/O [facility] SPEC 12/27/2009 recto-vaginal fistula - COLONOSCOP W/ OR W/O [facility] SPEC 12/03/2013 normal - COLOSTOMY 06/10/10 - EGD W/O OR W/BRUSH/WASH 12/27/2009 EGD - EGD W/O OR W/BRUSH/WASH 12/03/2014 normal - INSRT UTER TANDMS/VAG OVOIDS 10/26/09 INSERT UTERINE TANDEMS FOR CLINICAL BRACHYTHERAPY performed by ADELA JOY at OR - LAPAROSCOPIC NEPHRECTOMY 08/17/2009 Left: pT2, Clear Cell RCC, 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 - PAST SURGICAL HISTORY OF 06/22/11 Debridement R inf pubic ramus-osteomyelitis - PAST SURGICAL HISTORY OF 06/2011 urostomy - PAST SURGICAL HISTORY OF 08/2013 surgery on right arm for dialyasis - PELVIC EXAMINATION W ANESTH 06/22/2011 EUA/cysto - PELVIC EXENTERATION 09/07/2011 Current Outpatient Prescriptions: albuterol (PROVENTIL) 2.5 mg /3 mL (0.083 %) nebulizer solution INHALE 1 VIAL VIA NEBULIZER EVERY 2 HOURS NEEDED NEEDED FOR SHORTNESS OF BREATH AND/OR WHEEZING HYDROcodone-homatropine (HYDROMET) 5-1.5 mg/5 mL (5 mL) syrup Take 5 mL by mouth four times daily as needed for up to 14 days.Earliest Fill Date: 02/08/18 ascorbic acid, vitamin C, (VITAMIN C) 500 mg tablet Take 500 mg by mouth once daily. diphenoxylate-atropine (LOMOTIL) 2.5-0.025 mg per tablet Take 1-2 tablets by mouth every 6 hours as needed for Diarrhea for up to 14 days. neratinib 40 mg tab Take 6 tablets by mouth once daily. ondansetron (ZOFRAN) 8 mg tablet Take 1 tablet by mouth every 8 hours as needed for Nausea/Vomiting. ergocalciferol, vitamin D2, (DRISDOL) 50,000 unit capsule Take 1 capsule by mouth once each week. Once weekly clobetasol (TEMOVATE) 0.05 % cream Apply 1 application to affected area twice daily. As needed for rash on arms folic acid 1 mg tablet Take 1 tablet by mouth once daily. amLODIPine (NORVASC) 10 mg tablet Take 10 mg by mouth once daily. famotidine (PEPCID) 20 mg tablet Take 1 tablet by mouth twice daily as needed (stomach upset). calcium acetate 667 mg tab Take 667 mg by mouth three times daily. b complex, c, folic acid 1 mg renal vitamins (TRIPHROCAPS) 1 mg capsule Take 1 capsule by mouth once daily. acetaminophen (TYLENOL) 325 mg tablet Take 650 mg by mouth every 6 hours as needed. COMPOUNDED PRESCRIPTION Dx: OSAOrder: Bipap , Dreamwear small frame/small cushion full face mask interface, humidification, supplies including tubing x 1 year cxfoyvccxzGRFTN-lpqsyz-lqfnlmirh (BMX 1:1:1) 1:1:1 liqd Take 10 mL by mouth every 4 hours as needed. swish and spit. Do not swallow. albuterol HFA (PROAIR HFA) 90 mcg/actuation inhaler Inhale 2 Puffs as instructed every 4 hours as needed. lisinopril (ZESTRIL, PRINIVIL) 20 mg tablet Take 1 tablet by mouth twice daily. STOOL SOFTENER 100 mg capsule TAKE 1 CAPSULE TWICE A DAY No current facility-administered medications for this visit. 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 Spouse still active smoker, in home. Alcohol use: No Drug use: No Sexual activity: Yes Partners with: Male Other Topics Concern Service No Blood Transfusions Yes Caffeine Concern No Occupational Exposure No Hobby Hazards No Sleep Concern No Stress Concern No Weight Concern No Special Diet No Back Care No Exercise Yes Comment:sometimes Bike Helmet No Seat Belt No Self-Exams Yes ROS: See HPI PE: BP 120/58 Pulse 100 Temp (Src) 97.5 (Left Tympanic) Resp 20 Wt 170 lb (77.1kg) Gen: AANDOX3, NAD, non-toxic appearing, cooperative HEENT: PERRLA, EOMIs with lateral deviation right eye, nares without drainage, pharynx without erythema, exudate, lesions, or drainage. Uvula midline. MMM, poor dentition Neck: No LAD, no thyromegaly, no meningismus. CV: RRR, 3/6 HSM LUSB, LLSB?murmur, normal s1s2? Lungs: right lower and upper lobes with scattered rhonchi and wheezing, intermittent on left lower/upper lobes rhonchi, intermittent moist cough No edema Thoracic kyphosis Skin: eczematous dry rash on b/l outer arms and thighs and abdomen Fistula palpable and appears intact right upper inner arm ? ASSESSMENT/PLAN: 1. Dyslipidemia - ICD9: 272.4, ICD10: E78.5 (primary diagnosis) - to be determined upon return of lab results - Encouraged following a low fat, low cholesterol diet. - Discussed the benefits of regular aerobic exercise and weight loss. - LIPID PANEL BASIC - COMP METABOLIC PANEL - HGB A1C 2. ABDIAS (obstructive sleep apnea) - ICD9: 327.23, ICD10: G47.33 - rx for Bipap written and given to her today, she is going to stop at company to give rx today, f/u in office 1 month after starting Bipap at home - COMPOUNDED PRESCRIPTION Lawrence Dozier DO Return if no improvement. Follow up with Lawrence Dozier DO. Discussed risks, benefits, alternatives, and potential side effects of medications. Patient/Guardian expressed understanding and agreed with the plan. See patient instructions. Lawrence Dozier DO [address] [place] [address] Referring Provider: SELF [200] Allergies As of Date: 02/22/2018 (No Known Allergies) Date Reviewed: 02/22/2018 Reviewed by: Jeanie Jenkins LPN - Fully Assessed Reason for Visit: Hospital F/U [57] Primary Visit Diagnosis:Dyslipidemia [E78.5] Other Visit Diagnosis:ABDIAS (obstructive sleep apnea) [G47.33] Order(s):LIPID PANEL BASIC [SQLIPB] Order #: [id number] FUTURE COMP METABOLIC PANEL [SQCMP] Order #: [id number] FUTURE HGB A1C [ISYNM0H] Order #: [id number] FUTURE COMPOUNDED PRESCRIPTIONDx: ABDIAS Order: Bipap , Dreamwear small frame/small cushion full face mask interface, humidification, supplies including tubing x 1 yearDisp: 1 DeviceRfl: 0 Prescriptions as of 02/22/2018 Sig: ALBUTEROL SULFATE 2.5 MG/3 ML* INHALE 1 VIAL VIA NEBULIZER E* HYDROCODONE-HOMATROPINE 5 MG-* Take 5 mL by mouth four times* ASCORBIC ACID (VITAMIN C) 500* Take 500 mg by mouth once lesia* DIPHENOXYLATE-ATROPINE 2.5 MG* Take 1-2 tablets by mouth pipo* NERATINIB 40 MG TABLET Take 6 tablets by mouth once * ONDANSETRON HCL 8 MG TABLET Take 1 tablet by mouth every * ERGOCALCIFEROL (VITAMIN D2) 5* Take 1 capsule by mouth once * CLOBETASOL 0.05 % TOPICAL CRE* Apply 1 application to affect* FOLIC ACID 1 MG TABLET Take 1 tablet by mouth once d* AMLODIPINE 10 MG TABLET Take 10 mg by mouth once adolfo* FAMOTIDINE 20 MG TABLET Take 1 tablet by mouth twice * CALCIUM ACETATE 667 MG TABLET Take 667 mg by mouth three ti* VITAMIN B COMPLEX AND VITAMIN* Take 1 capsule by mouth once * ACETAMINOPHEN 325 MG TABLET Take 650 mg by mouth every 6 * COMPOUNDED PRESCRIPTION Dx: ABDIAS Order: Bipap , * IATXFSGTROSMVMP-INKTFNN-JPQLC* Take 10 mL by mouth every 4 h* ALBUTEROL SULFATE HFA 90 MCG/* Inhale 2 Puffs as instructed * LISINOPRIL 20 MG TABLET Take 1 tablet by mouth twice * STOOL SOFTENER 100 MG CAPSULE TAKE 1 CAPSULE TWICE A DAY Problem List As Of Date 02/22/2018 Noted Resolved Obesity [E66.9] INVALID FOR*09/13/2010 Pallor [R23.1] INVALID FOR*07/10/2009 LBP (low back pain) [M54.5] INVALID FOR*10/25/2012 Vomiting [R11.10] INVALID FOR*09/13/2010 Anemia due to blood loss [D50.0] INVALID FOR*12/27/2009 Dyspnea [R06.00] INVALID FOR*08/26/2009 Chest Pain [R07.9] INVALID FOR*08/26/2009 Cervix cancer [C53.9] INVALID FOR*10/25/2012 More... 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 Radiation cystitis [N30.40] INVALID FOR*10/25/2012 S/P ileal conduit [Z93.6] INVALID FOR*10/25/2012 SUMMARY [V999.95] INVALID FOR* More... Progressively worsening kidney function [N18.9]INVALID FOR*04/03/2017 More... Hx of cervical cancer [Z85.41] INVALID FOR* More... H/o Renal cell cancer [C64.9] INVALID FOR* More... DVT prophylaxis [QLF1591] INVALID FOR*11/02/2012 More... DISPOSITION AND FOLLOW-UP [V999.01] INVALID FOR*11/02/2012 More... Iron deficiency anemia [D50.9] INVALID FOR* More... Euthyroid sick syndrome [E07.81] INVALID FOR* More... Osteomyelitis [M86.9] INVALID FOR* More... Renal failure [N19] INVALID FOR*04/03/2017 End stage renal disease (HCC) [N18.6] INVALID FOR*04/03/2017 Anemia [D64.9] Primary lung cancer with metastasis from lung t*INVALID FOR*09/22/2016 Right middle lobe pneumonia [J18.1] INVALID FOR* Chronic kidney disease, stage V (HCC) [N18.5] More... Cancer of trachea, bronchus, and lung (HCC) [C3*INVALID FOR* More... 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] INVALID FOR* Dialysis patient (HCC) [Z99.2] INVALID FOR* Essential hypertension with goal blood pressure*INVALID FOR* Primary lung cancer with metastasis from lung t*INVALID FOR* Diastolic dysfunction [I51.9] INVALID FOR* Mitral valve insufficiency [I34.0] INVALID FOR* Rash and nonspecific skin eruption [R21] INVALID FOR* Elevated TSH [R79.89] INVALID FOR* Dyspepsia [R10.13] INVALID FOR* ESRD on hemodialysis (HCC) [N18.6, Z99.2] INVALID FOR*04/03/2017 Anemia, chronic renal failure, stage 5 (HCC) [N*INVALID FOR* Acute on chronic diastolic congestive heart gisell*INVALID FOR* ESRD (end stage renal disease) on dialysis (HCC*INVALID FOR* Snoring [R06.83] INVALID FOR* PND (paroxysmal nocturnal dyspnea) [R06.00] INVALID FOR* Fatigue [R53.83] INVALID FOR* Prescriptions ordered this encounter Disp Refills Start End COMPOUNDED PRESCRIPTION 1 De* 0 02/22/2018 Class: Print RX Sig: Dx: ABDIAS Order: Bipap , Dreamwear small frame/small cushion full face mask interface, humidification, supplies including tubing x 1 year Encounter Status:Closed by LAWRENCE DOZIER DO on 02/22/18 [facility] ABS GR + CBC Collected: 02/21/2018 Status: F Source: [place] [place] 1:49 PM [facility] REPOSITORY TYPE CODE TESTS RESULT OUT OF REFERENCE UNITS RANGE LAB WWBC 3.70-11.00 k/uL [place] WBC 5.08 LAB WRBC 3.90-5.20 m/uL [facility] RBC 4.05 LAB WHGB 11.5-15.5 g/dL [place] Hemoglobin 11.7 LAB WHCT 36.0-46.0 % [facility] Hematocrit 37.1 LAB WMCV 80.0-100.0 fL [place] MCV 91.6 LAB WMCH 26.0-34.0 pg [place] MCH 28.9 LAB WMCHC 30.5-36.0 g/dL [place] MCHC 31.5 LAB WRDW 11.5-15.0 % [facility] High RDW 17.9 LAB WPLT 150-400 k/uL [place] Platelet Cnt 177 LAB WMPV 9.0-12.7 fL [facility] MPV 9.3 Result Comment: Test performed at: [facility], [address] [place] [address]. LAB ABGRAN 1.45-7.50 k/uL Absol Gran 3.65 Count [facility] ABS GR + CBC Collected: 02/14/2018 Status: F Source: [place] 1:[address] [facility] REPOSITORY TYPE CODE TESTS RESULT OUT OF REFERENCE UNITS RANGE LAB WWBC 3.70-11.00 k/uL [place] WBC 7.97 LAB WRBC 3.90-5.20 m/uL [place] RBC 4.22 LAB WHGB 11.5-15.5 g/dL [place] Hemoglobin 12.0 LAB WHCT 36.0-46.0 % [facility] Hematocrit 38.9 LAB WMCV 80.0-100.0 fL [place] MCV 92.2 LAB WMCH 26.0-34.0 pg [place] MCH 28.4 LAB WMCHC 30.5-36.0 g/dL [place] MCHC 30.8 LAB WRDW 11.5-15.0 % [facility] High RDW 17.4 LAB WPLT 150-400 k/uL [place] Platelet Cnt 211 LAB WMPV 9.0-12.7 fL [place] MPV 9.1 Result Comment: Test performed at: [address] [place] [address]. LAB ABGRAN 1.45-7.50 k/uL Absol Gran 6.34 Count [facility] ABS GR + CBC Collected: 02/08/2018 Status: F Source: [place] 1:[address] [facility] REPOSITORY TYPE CODE TESTS RESULT OUT OF REFERENCE UNITS RANGE LAB WWBC 3.70-11.00 k/uL [place] WBC 6.64 LAB WRBC 3.90-5.20 m/uL [facility] RBC 4.43 LAB WHGB 11.5-15.5 g/dL [place] Hemoglobin 12.5 LAB WHCT 36.0-46.0 % [place] Hematocrit 40.4 LAB WMCV 80.0-100.0 fL [place] MCV 91.2 LAB WMCH 26.0-34.0 pg [place] MCH 28.2 LAB WMCHC 30.5-36.0 g/dL [place] MCHC 30.9 LAB WRDW 11.5-15.0 % [place] High RDW 18.6 LAB WPLT 150-400 k/uL [place] Platelet Cnt 233 LAB WMPV 9.0-12.7 fL [facility] MPV 9.0 Result Comment: Test performed at: [place] [address] [place] [address]. LAB ABGRAN 1.45-7.50 k/uL Absol Gran 5.22 Count HEPATIC FUNCTN PANEL Collected: 02/08/2018 Status: F Source: [place] 1:34 PM [facility] REPOSITORY TYPE CODE TESTS RESULT OUT OF REFERENCE UNITS RANGE LAB ALB 3.9-4.9 g/dL Low Albumin 3.2 LAB TBIL 0.2-1.3 mg/dL Bilirubin, Total 0.2 LAB CBIL <0.2 mg/dL Bilirubin,Conjuga <0.2 jp LAB ALKP 34-123 U/L Alkaline Phosphatase 102 LAB AST 13-35 U/L AST 25 Result Comment: Hemolysis present LAB ALT 7-38 U/L ALT 9 LAB TP 6.3-8.0 g/dL Protein, Total 7.2 EMERGENCY DEPARTMENT Observed: 02/02/2018 Status: F Source: [place] SUMMARY 8:24 PM [facility] REPOSITORY [facility] Medical Records Department [address] [place] [address] Emergency Department Summary 02/02/18 1659 MR#: [id number] Acct: [id number] Name: YUN NELSON Rep #: [id number] : 1960 57 From: Nicolas Rey DO PCP: Lawrence Fink DO Status: REG ER - ER Visit Summary Date of Service: 02/02/18 Chief Complaint: Abdominal pain History of Present Illness: The patient is a 57 F who presents with left lower abdominal pain that has been getting worse over the past week. Patient states the pain is aching. Patient states the pain is worse in the left lower quadrant. Patient states it is worsened after she eats. Patient states she has been taking Pepto-Bismol with some relief. Patient admits to some nausea and vomiting but denies any hematemesis. Patient admits to some watery diarrhea but denies any melena or hematochezia. Patient denies any dysuria or hematuria but has a urostomy. Physical Examination: Vital signs are stable. Patient is afebrile. Patient is in no acute distress. Oral mucosa is pink and moist. Neck is supple. Trachea is midline. There is no JVD noted. Heart was regular rate and rhythm. Lungs are clear and equal bilaterally. Abdomen is soft. Bowel sounds are normal. There is left lower quadrant tenderness. There is no distention noted. There is no rebound or guarding noted. Cranial nerves II through XII are intact. There are no focal motor or sensory deficits noted. Test Results: CBC showed a mild anemia with hemoglobin of 11.3 and hematocrit of 36.9. BUN and creatinine were elevated at 41 and 7.85 respectively. Patient has a history of end-stage renal disease. Liver function tests and lipase were all within normal limits. CT scan of the abdomen and pelvis shows abdominal wall hernia that is stable compared to previous CT report. There is some mild fluid in the hernia sac today however there is no obstruction or perforation noted. Emergency Department Course and Treatment: Patient was given Zofran here. Patient felt better and was hungry on reevaluation. Patient was given a prescription for Zofran. Patient was instructed to start with a liquid diet and advance as tolerated. Patient was instructed to follow-up with her primary care physician in 5-7 days. Patient understood and was agreeable with the plan. All questions were answered. Disposition: Discharge home Impression: Nausea and vomiting This note was generated with [employer] dictation software. It may contain incorrect words, spelling, and punctuation that were not noted in review of the chart prior to signing ED Disposition - Plan for ED Patient: Disposition: Home or Assisted Living Chief Complaint: Nausea/Vomiting Diagnosis: Nausea and vomiting Instructions: ED Nausea Vomiting Prescriptions: Ondansetron [Zofran Odt] 4 mg PO Q8H PRN PRN #10 tab PRN Reason: Nausea/Vomiting Referrals: Lawrence Dozier DO [Primary Care Provider] - What to do if you have Problems For any increased pain, shortness of breath, bleeding, nausea or vomiting, chest pain, or any unexpected problems, contact your Primary Care Provider. Call [facility] ([phone]) or report to the closest Emergency Room. Call 911 if necessary. 02/02/182023 <Electronically signed by Nicolas Rey DO> Date Nicolas Rey DO Cosigner Signature (If Indicated): Date CC: Lawrence Fink, DO CBC W/DIFF, AUTOMATED Collected: 02/02/2018 Status: F Source: [place] 5:25 PM [facility] REPOSITORY TYPE CODE TESTS RESULT OUT OF RANGE REFERENCE UNITS LAB L100.1000 4.4-11.0 K/mm3 Normal WBC 6.0 LAB L100.1200 4.2-5.4 M/mm3 Low RBC 4.07 LAB L100.1300 12.0-15.0 g/dl Low HGB 11.3 LAB L100.1400 37-47 % Low HCT 36.9 LAB L100.1500 81-99 fL Normal MCV 90.7 LAB L100.1600 27.0-32.0 pg Normal MCH 27.8 LAB L100.1700 32-36 g/gl Low MCHC 30.6 LAB L100.1810 11.6-14.6 % High RDW CV 19.2 LAB L100.1820 35.1-43.9 fl High RDW SD 64.1 LAB L100.1900 150-450 K/mm3 Normal PLT 184 LAB L100.2000 6.2-12.0 fl Normal MPV 8.8 LAB L100.2100 47-70 % High NEUT% 79.3 LAB L100.2200 19-41 % Low LY% 12.7 LAB L100.2300 0-10 % Normal MONO% 5.5 LAB L100.2400 0-5 % Normal EO% 2.0 LAB L100.2500 0-1 % Normal BASO% 0.2 LAB L100.2550 0.0-0.9 % Normal IM GRAN % 0.300 Result Comment: IG% - Immature Granulocytes (promyelocytes, myelocytes and metamyelocytes) > 1% indicates that a LEFT SHIFT is Present. LAB L100.2620 2.0-7.7 X10 3/uL Normal Absolute Neut 4.7 LAB L100.2720 0.83-4.51 X10 3/ul Low Absolute Lymph 0.76 Performed By: #### L100.0100 #### [facility] [address] [place], [address] COMPREHENSIVE METABOLIC Collected: 02/02/2018 Status: F Source: [place] DAVILA 5:25 PM [facility] REPOSITORY TYPE CODE TESTS RESULT OUT OF RANGE REFERENCE UNITS LAB L501.0100 74-106 mg/dL High GLU 140 Result Comment: Fasting Glucose result greater than or equal to 126 mg/dL suggests DIABETES MELLITUS per A.D.A. criteria. Please note revised GLUCOSE reference range effective 2017. LAB L501.1000 7-18 mg/dL High BUN 41 LAB L501.1100 0.55-1.02 mg/dL High alert CREAT,SERUM 7.85 Result Comment: Critical Result(s) Called [facility] SHAHZAD at: 18:11:10 02/02/2018 by: NAKUL RICE The validity of the calculated GFR AND GFRAA in patients over 70 years has not been determined. Clinical correlation is essential. LAB L501.1110 >60 mL/min Low EST GFR 6 Result Comment: Non- GFR Calc LAB L501.1115 >60 mL/min Low EST GFR - AA 7 Result Comment: GFR Calc LAB L501.1255 ml/min Normal Estimated CRCL 6.40 LAB L501.1300 10-20 RATIO Low BUN/CRE 5.2 LAB L501.1500 6.4-8.2 g/dL Normal T PROT 7.2 LAB L501.1800 3.2-5.0 g/dL Low ALB 2.4 LAB L501.1950 2.2-4.2 g/dL High GLOB 4.8 LAB L501.2000 0.9-2.4 RATIO Low A/G 0.5 LAB L501.2200 8.5-10. mg/dL Normal 1 CA 8.9 LAB L501.4100 15-37 U/L Normal AST 21 Result Comment: Slight Hemolysis, Result may be falsely increased. LAB L501.4305 45-117 U/L High ALK P 120 LAB L501.4405 13-56 U/L Low ALT 12 LAB L501.4600 0.20-1.00 mg/dL Normal T BILI 0.30 LAB L501.5300 136-145 mmol/L Normal NA 141 LAB L501.5600 3.5-5.1 mmol/L Normal K 4.4 Result Comment: Slight Hemolysis, Result may be falsely increased. LAB L501.5900 98-107 mmol/L Normal CL 100 LAB L501.6100 21.0-32.0 mmol/L Normal CO2 30.0 LAB L501.6200 5-15 Normal GAP 11 Performed By: #### L500.4050, L501.2450 #### [facility] [address] [place], [address] LIPASE Collected: 02/02/2018 Status: F Source: [place] 5:25 PM [facility] REPOSITORY TYPE CODE TESTS RESULT OUT OF RANGE REFERENCE UNITS LAB L501.2450 73-393 U/L Normal LIPASE 91 Performed By: #### L500.4050, L501.2450 #### [facility] [address] [place], [address] ABDOMEN/PELVIS WITHOUT Observed: 02/02/2018 Status: F Source: [place] CONT 4:59 PM [facility] RE[facility]ITORY [facility] Imaging Services [address] [place] [address] Abdomen/Pelvis without Cont MR#: [id number] Acct: [id number] Name: YUN NELSON Rep #: [id number] : 1960 F 57 From: Cayetano Beaulieu MD PCP: Lawrence Fink DO Status: REG ER Study: Abdomen/Pelvis without Cont Date of Exam: 02/02/18 Exam# [id number] Ordering Dr: Nicolas Rey DO STUDY: CT ABDOMEN AND PELVIS WITHOUT CONTRAST REASON FOR EXAM: Female, 57 years old. : Lung cancer RADIATION DOSAGE (If Supplied By Facility): CTDIvol = ( 12.68 ) mGy, DLP = ( 681.19 ) mGycm TECHNIQUE: Transaxial images were obtained from the dome of the diaphragm to the symphysis pubis without oral contrast, and without intravenous contrast. Sagittal and coronal images were reconstructed. Individualized dose optimization techniques were used for this CT. COMPARISON: CTA chest from 01/15/2018, CT abdomen and pelvis from 07/23/2014 FINDINGS: Parenchymal mass of the right lung base is partially visualized but grossly similar since the prior study. Small right pleural effusion noted. The visualized portions of the heart are within normal limits. Normal liver. There are multiple gallstones. There is mild splenomegaly. Normal pancreas. Normal bilateral adrenal glands. Severe right renal atrophy is new since the prior study. Prominent extrarenal pelvis is once again identified. The left kidney is surgically absent. Normal visualized stomach. Normal small intestine. Left lower quadrant ostomy identified. There is moderate fecal retention in the colon. The distal colon is surgically absent. Soft tissue density in the presacral space is similar since the prior study. There is diffuse atherosclerotic calcification of the abdominal aorta, without a demonstrated aneurysm. Normal inferior vena cava. Normal retroperitoneum. Normal urinary bladder. No pelvic free fluid. The uterus appears to be surgically absent. Complex abdominal wall hernias identified containing both colon and small bowel, grossly similar in size since the prior study. However, there is mild fluid within the inferior portion of the hernia sac, not evident on the prior study. Trace perihepatic and right paracolic gutter ascites. There are diffuse degenerative changes of the visualized lumbar spine. CT/Abdomen/Pelvis without Cont IMPRESSION: 1. No evidence of bowel obstruction. 2. Complex abdominal wall hernia with new hernia sac fluid in the largest left lower quadrant hernia may represent reactive edema. Trace perihepatic and right paracolic gutter ascites. No dilated loops of small bowel seen within the sac. 3. Lung mass in the right lung base is overall similar CT of 01/15/2018. Small right pleural effusion. 4. Severe right renal atrophy is new since 2014. Left nephrectomy. 5. Mild splenomegaly. Electronically Signed: Cayetano Beaulieu MD at 18:51 EST , Service support , CC: Nicolas Rey DO; Lawrence Fink DO Solar Maintenance Technician: Signed 12 LEAD ELECTROCARDIOGRAM Observed: 01/18/2018 Status: F Source: [place] 9:28 AM [facility] REPOSITORY [facility] Cardiovascular Services [address] [place] [address] 12 Lead EKG 01/14/182007 MR#: [id number] Acct: [id number] Name: YUN NELSON Rep #: [id number] : 1960 57 From: Eric Spann MD Attending Dr: Jamaal Nicole Status: DIS IN Ordering Dr: Jorge Jimenez MD Date: 01/14/18 Location: [facility] Sex: F C Admitted: 01/14/18 Test Reason : SOB Blood Pressure : / mmHG Vent. Rate : 105 BPM Atrial Rate : 105 BPM P-R Int : 160 ms QRS Dur : 082 ms QT Int : 314 ms P-R-T Axes : 033 059 029 degrees QTc Int : 415 ms Sinus tachycardia Otherwise normal ECG Confirmed by NEHA FARIAS, ERIC ([id number]), index editor ORQUIDEA DEJESUS ([id number]) on 01/16/2018 4:22:24 PM Referred By: BENY Confirmed By:ERIC SPANN MD 01/16/18 1622 Date Eric Spann MD CC: Jamaal Nicole; Lawrence Fikn DO; Jorge Jimenez MD Signed DISCHARGE SUMMARY Observed: 01/17/2018 Status: F Source: [place] 2:19 PM [facility] REPOSITORY [facility] Medical Records Department [address] [place] [address] Discharge Summary 01/17/18 1408 MR#: [id number] Acct: [id number] Name: YUN NELSON Rep #: [id number] : 1960 57 From: Jamaal Nicole MD PCP: Lawrence Fink DO Status: ADM IN Y Location: [place] [address]-1 Discharge Date and Diagnosis Date of Admission: 01/14/18 Date of Discharge: 01/17/18 - Primary Discharge Diagnosis #1 probable acute right lung healthcare associated pneumonia. #2 acute on chronic anemia required blood transfusion, there was no evidence of active bleeding. #3 right hip pain, attributed to advanced osteoarthritis. #4 metastatic endometrial cancer with concern of possible cancer progression. - Secondary Discharge Diagnosis Chronic Problems Endometrial cancer (Chronic) Status post hysterectomy, cystectomy and partial colectomy due to metastatic disease End-stage renal disease on hemodialysis (Chronic) History of hysterectomy for cancer (Chronic) History of nephrectomy (Chronic) Anemia of chronic renal failure, stage 5 (Chronic) Anemia of chronic renal failure (Chronic) Hypertension (Chronic) Obesity (BMI 30-39.9) (Chronic) History of colostomy (Chronic) History of ileal conduit (Chronic) Hospital Course and Treatment Imaging Results: Clinical Impression(s) from Imaging Studies Chest X-Ray 01/14/18 20:02 IMPRESSION: Persisting airspace opacities in the right mid to lower lung field. Resolution of the previously seen left-sided opacities. Electronically Signed: Ernesto Terri, at 20:18 EST Tel , Service support , Hip/Pelvis X-Ray 01/14/18 23:38 IMPRESSION: 1. Advanced osteoarthritis of the right hip. 2. No fracture or acute disease. 3. Chronic lucent defect of the right inferior pubic ramus. Please see above comment. If warranted, further evaluation with whole body bone scan could be obtained. at 0134 Reported and signed by: Srikanth Acuña MD Electronically Signed: Srikanth Acuña, at 1:32 EST Tel , Service support , Chest CTA 01/15/18 00:48 IMPRESSION: 1. No evidence of pulmonary embolic disease. 2. Right infrahilar and right middle lobe 4.7 cm mass, increased in size compared to previous. Small right pleural effusion. 3. Right lung extensive consolidation with volume loss. Radiation therapy, if previously performed, could show similar findings. 4. Several subpleural and pleural-based left lung nodules compatible with metastases. Individualized dose optimization techniques were used for this CT. at 0402 Reported and signed by: Srikanth Acuña MD Electronically Signed: Srikanth Acuña, at 3:59 EST Tel , Service support , Chest X-Ray 01/16/18 08:05 IMPRESSION: Stable examination. Stable right lower lobe pulmonary nodule with right upper lobe and in the right midlung airspace disease. Electronically Signed: Jose De Jesus Collado MD at 9:25 EST Tel [phone], Service support , , oncology. Dr. Strong, nephrology. Dr. Carreno, infectious disease. Operations: None Procedures: Blood transfusion, Dialysis Summary of Care Provided: Patient seen and examined on the day of discharge and appears to be stable to be discharged home. She denied any significant symptoms her vital signs are stable, she remained on 2 L of oxygen which has been her baseline at home. This is a 57 years old female patient presented to the emergency room because of cough and subjective fever and she was found to have right lung consolidation, right infrahilar and right middle lobe lung mass increased in size compared to previous CAT scans as well as small pleural effusion and she is being admitted as a case of probable healthcare associated pneumonia versus worsening lung metastasis from endometrial cancer. She developed acute on chronic anemia requiring blood transfusion without evidence of acute blood loss. #1 probable acute right lung healthcare associated pneumonia: Treated empirically with IV cefepime and vancomycin. She remained afebrile throughout admission and she had no leukocytosis. CTA chest revealed no evidence of PE, revealed right lung extensive consolidation, right middle lobe lung mass which increased in size and there is a concern that her cancer is progressing. Nasal swab for influenza a and B were negative. Blood culture showed no growth in 48 hours. Respiratory panel for viruses were negative. Patient discharged home in a stable medical condition, discharged on Augmentin for more than 3 days to complete total of 7 days of treatment. #2 acute on chronic chronic anemia: Probably anemia of chronic disease secondary to cancer chemotherapy. There was no evidence of acute blood loss identified. Baseline hemoglobin around 8 g/dL. Hemoglobin came down to 7.2 g/dL and she received 1 unit of packed RBCs. After transfusion, hemoglobin came up above 9 g/dL and remained stable. #3 right hip pain: X-ray of the head revealed advanced osteoarthritis of the right hip, no fractures. Controlled with pain medications. #4 elevated d-dimer: CTA chest was negative for acute PE. Venous Doppler of the both legs revealed no evidence of acute DVT. #5 metastatic endometrial cancer: With metastases to the bladder, left kidney and possible lung metastasis. Currently on chemotherapy. There is a concern that she has progression of her disease on CT scan chest. Oncology consulted and recommended to treat probable pneumonia empirically and follow-up with oncology as outpatient in 1 week. #6 history of renal cell carcinoma: Status post left nephrectomy. Stable. #7 ESRD: Continue on hemodialysis, received hemodialysis according to her schedule. Patient discharged home in a stable medical condition, discharged on Augmentin for 3 days to complete total of 7 days of empiric treatment for probable pneumonia, continued on her current medications without any changes, recommended follow-up with PCP in 1 week, follow-up with oncology according to Dr. Arteaga recommendation. This note was generated with [employer] dictation software. It may contain incorrect words, spelling, and punctuation that were not noted in checking the note before signing. - Physical Exam General: Alert, Oriented x3, Cooperative, No apparent distress HEENT: Atraumatic, PERRLA, EOMI, Normocephalic Oral: Moist Mucosa, No Gingival or Mucosal Lesions/ Ulcerations Neck: Supple, No JVD, Negative Carotid Bruits, Trachea Midline, Thyroid Normal Size and Texture Lungs: Clear to auscultation, No wheeze, No rales, Diminished, Rhonchi Cardiovascular: Regular rate, Regular Rhythm, Normal S1, Normal S2, PMI Normal Abdomen: Bowel Sounds Present, Soft, Non Tender, Non-Distended, No Hepato-splenomegaly, - - Right lower abdomen ileal conduit. Left lower abdomen colostomy. Extremities: No clubbing, No cyanosis, No edema Skin: No rashes, No breakdown Lymphatic: No Cervical, Supraclavicular, or Inguinal Adenopathy Neurological: Cranial nerves II-XII grossly intact, Neuro grossly intact Psych/Mental Status: Normal Affect, Appropriate, Alert and oriented to time, place, person, mood and affect Vital Signs Temp Pulse Resp BP Pulse Ox 97.8 F 88 16 148/65 H 98 01/17/18 14:04 01/17/18 14:04 01/17/18 14:04 01/17/18 14:04 01/17/18 14:04 Oxygen Flow Rate (L/min) 1 Oxygen Delivery Method Nasal Cannula Weight: 161 lb 6.054 oz Body Mass Index (BMI) 29.5 Intake and Output for Last 24 Hours Intake Total 1443 / 1443 1198.5 / 1198.5 727 / 727 Output Total 1702 / 1702 30 / 30 Balance -259 / -259 1168.5 / 1168.5 727 / 727 Microbiology Past 72 Hours 01/14/18 20:45 Blood Culture - Preliminary Laboratory Tests Past 24 Hrs Discharge Activity: Return to Normal Activity Weight Bearing Status: Weight bearing as tolerated Call your doctor if you observe: Fever of 101 or Higher, Shortness of breath, Dizziness, Fainting spells, Chest pain, Increased palpitations (irregular heartbeat) Home Medications: Medications to take at Discharge Calcium Acetate [Phoslo Gel Cap] 2 cap PO TID 07/23/14 Docusate Sodium [Colace] 100 mg PO BID PRN 07/23/14 Folic Acid 1 mg PO DAILY@0800 07/23/14 Amlodipine [Norvasc] 10 mg PO DAILY 02/14/15 Lisinopril [Zestril] 20 mg PO BID 02/14/15 Ergocalciferol [Vitamin D] 50,000 unit PO TH 03/02/16 Famotidine [Pepcid AC] 20 mg PO BID PRN 03/02/16 Acetaminophen [Tylenol] 650 mg PO BID PRN 02/16/17 B Complex W-C No.20/Folic Acid [Nephrocaps Softgel] 1 mg PO DAILY 06/07/17 Ondansetron [Zofran] 8 mg PO Q8H PRN PRN 06/07/17 Albuterol Aerosols [Ventolin Aerosols] 2.5 mg INHALATION Q2H PRN PRN #120 vial.neb. 06/11/17 Hydrocodone Bit/Homatrop Me-Br [Hydrocodone-Homatropine Syrup] 1 dose PO 4X/DAY PRN PRN 10/17/17 Ascorbic Acid [Vitamin C] 500 mg PO DAILY@0800 01/14/18 Amox/Clavulanate Tablet [Augmentin Tablet] 875 mg PO Q12H #6 tab 01/17/18 Following Prescrptions Were Given to Patient: Amox/Clavulanate Tablet [Augmentin Tablet] 875 mg PO Q12H #6 tab Primary Care Physician: Lawrence Dozier DO [Primary Care Provider] - Please follow up with your Primary Care Physician in: 1 week. Please Follow Up With: Eric Arteaga DO Please Follow Up With: Lawrence Dozier DO Disposition: Home Minutes spent on discharge:: 35 Patient Condition:: Stable Medical Necessity - Tobacco Use Smoking Status: Former smoker - Quit about 10-15 years ago; states never a big smoker Had cigarette smoking. Tobacco Use: Cigarettes Meaningful Use Info Meaningful Use Diagnoses (Choose all that apply): None applicable Code Visit Inpatient E AND M: 64494 Disch Hosp 01/17/18 1419 <Electronically signed by Jamaal Nicole MD> Date Jamaal Nicole MD Cosigner Signature (if applicable): Date CC: Jamaal Nicole; Lawrence Fink DO; Eric Arteaga DO Signed DISCHARGE INSTRUCTION Observed: 01/17/2018 Status: F Source: [place] 10:41 AM [facility] RE[facility]IT[facility] Medical Records Department [address] [place] [id number] Instructions for Home/Discharge Instructions 01/17/18 1040 MR#: [id number] Acct: [id number] Name: YUN NELSON Rep #: [id number] : 1960 57 From: Jamaal Nicole MD PCP: Lawrence Fink DO Status: ADM IN You will use the following diet at home:: Cardiac, Renal (restricted protein/sodium) Your food should be the consistency of: Regular Discharge Activity: Return to Normal Activity Weight Bearing Status: Weight bearing as tolerated Call your doctor if you observe: Fever of 101 or Higher, Shortness of breath, Dizziness, Fainting spells, Chest pain, Increased palpitations (irregular heartbeat) Allergies/Adverse Reactions: Allergies No Known Allergies Allergy (Verified 01/14/18 19:37) Medications to take at Discharge Calcium Acetate [Phoslo Gel Cap] 2 cap PO TID 07/23/14 Docusate Sodium [Colace] 100 mg PO BID PRN 07/23/14 Folic Acid 1 mg PO DAILY@0800 07/23/14 Amlodipine [Norvasc] 10 mg PO DAILY 02/14/15 Lisinopril [Zestril] 20 mg PO BID 02/14/15 Ergocalciferol [Vitamin D] 50,000 unit PO TH 03/02/16 Famotidine [Pepcid AC] 20 mg PO BID PRN 03/02/16 Acetaminophen [Tylenol] 650 mg PO BID PRN 02/16/17 B Complex W-C No.20/Folic Acid [Nephrocaps Softgel] 1 mg PO DAILY 06/07/17 Ondansetron [Zofran] 8 mg PO Q8H PRN PRN 06/07/17 Albuterol Aerosols [Ventolin Aerosols] 2.5 mg INHALATION Q2H PRN PRN #120 vial.neb. 06/11/17 Hydrocodone Bit/Homatrop Me-Br [Hydrocodone-Homatropine Syrup] 1 dose PO 4X/DAY PRN PRN 10/17/17 Ascorbic Acid [Vitamin C] 500 mg PO DAILY@0800 01/14/18 Amox/Clavulanate Tablet [Augmentin Tablet] 875 mg PO Q12H #6 tab 01/17/18 The following prescriptions were given: Amox/Clavulanate Tablet [Augmentin Tablet] 875 mg PO Q12H #6 tab Primary Care Physician: Lawrence Dozier DO [Primary Care Provider] - Please follow up with your Primary Care Physician in: 1 week. Test Results: Test results from this visit will be discussed in further detail at your follow-up appointment, if applicable. Please Follow Up With: Eric Arteaga DO 01/17/18 1041 <Electronically signed by Jamaal Nicole MD> Date Jamaal Nicole MD CC: Leanne King M.D.; Lawrence Fink DO; Thania De Souza MD; Curry Carreno MD CBC W/DIFF, AUTOMATED Collected: 01/17/2018 Status: F Source: [place] 5:12 AM [facility] REPOS[facility] TYPE CODE TESTS RESULT OUT OF RANGE REFERENCE UNITS LAB L100.1000 4.4-11.0 K/mm3 Normal WBC 4.5 LAB L100.1200 4.2-5.4 M/mm3 Low RBC 3.45 LAB L100.1300 12.0-15.0 g/dl Low HGB 9.3 LAB L100.1400 37-47 % Low HCT 29.4 LAB L100.1500 81-99 fL Normal MCV 85.2 LAB L100.1600 27.0-32.0 pg Normal MCH 27.0 LAB L100.1700 32-36 g/gl Low MCHC 31.6 LAB L100.1810 11.6-14.6 % High RDW CV 17.2 LAB L100.1820 35.1-43.9 fl High RDW SD 54.2 LAB L100.1900 150-450 K/mm3 Normal PLT 158 LAB L100.2000 6.2-12.0 fl Normal MPV 9.4 LAB L100.2100 47-70 % High NEUT% 73.6 LAB L100.2200 19-41 % Low LY% 16.1 LAB L100.2300 0-10 % Normal MONO% 7.6 LAB L100.2400 0-5 % Normal EO% 1.8 LAB L100.2500 0-1 % Normal BASO% 0.2 LAB L100.2550 0.0-0.9 % Normal IM GRAN % 0.700 Result Comment: IG% - Immature Granulocytes (promyelocytes, myelocytes and metamyelocytes) > 1% indicates that a LEFT SHIFT is Present. LAB L100.2620 2.0-7.7 X10 3/uL Normal Absolute Neut 3.3 LAB L100.2720 0.83-4.51 X10 3/ul Low Absolute Lymph 0.72 Performed By: #### L100.0100 #### [facility] [address] [place], [place], [id number] HH, HEMOGLOBIN AND Collected: 01/16/2018 Status: F Source: [place] HEMATOCRIT 11:12 PM [facility] REPOSITORY TYPE CODE TESTS RESULT OUT OF RANGE REFERENCE UNITS LAB L100.1300 12.0-15.0 g/dl Low HGB 9.2 LAB L100.1400 37-47 % Low HCT 29.1 Performed By: #### L100.0600 #### [facility] [address] [place], [place], [address] URINALYSIS, COMPLETE Collected: 01/16/2018 Status: F Source: [place] 12:48 PM [facility] REPOSITORY Order Comment: How was Urine Obtained? CLEAN CATCH TYPE CODE TESTS RESULT OUT OF RANGE REFERENCE UNITS LAB L400.3000 Yellow COLOR Normal Yellow LAB L400.3050 Clear Normal CLARITY Clear LAB L400.3200 Normal mg/dl Normal GLUCOSE, UR Normal LAB L400.3300 Negative mg/dL Normal BILIRUBIN URINE Negative LAB L400.3400 Negative mg/dl Normal KETONE UR Negative LAB L400.3465 1.002-1.030 Normal SP.GR. DIPSTX 1.015 LAB L400.3550 5.0 - 8.0 pH UR Normal 9.0 LAB L400.3600 Negative mg/dl High PROT DIPSTX 100 LAB L400.3700 Normal mg/dl Normal UROBILI Normal LAB L400.3750 Negative Normal NITRITE UR Negative LAB L400.3780 Negative /ul High OCCULT BLOOD-UR 250 LAB L400.3800 Negative /ul High LEUK 25 ESTERASE LAB L400.4050 0-5 /hpf WBC Normal 0-5 SEEN LAB L400.4100 0-5 /hpf Normal RBC-UA 0-5 SEEN LAB L400.4150 5-10 /hpf SQUAM 0 Normal EPI SEEN LAB L400.4300 None Seen /hpf 0 Normal BACTERIA SEEN LAB L400.4350 <or=2+ /hpf 0 Normal MUCUS, URINE SEEN Performed By: #### L400.0001 #### [facility] [address] [place], [address] Observed: 01/16/2018 Status: F Source: [place] LEGIONELLA ANTIGEN 12:48 PM [facility] URINE REPOSITORY Specimen Source: URINE, CLEAN CATCH Legionella, UR Legionella Antigen result interpretation: Negative Presumptive negative for Legionella pneumophila serogroup 1 antigen in urine, suggesting no recent or current infection. Legionella Ag, Urine Negative (See interpretation below) Performed By: #### M300.4500 #### [facility] [address] [place], [address] STREP Observed: 01/16/2018 Status: F Source: [place] PNEUMONIAE ANTIG(UR,CSF) 12:48 PM [facility] RE[facility] S pneumo Ag URINE INTERPRETATION Negative Urine Presumptive negative for pneumococcal pneumonia, suggesting no current or recent pneumococcal infection. Infection due to S pneumoniae cannot be ruled out since the antigen present in the sample may be below the detection limit of the test. Strep pneumo Test Negative URINE (See interpretation below) Performed By: #### M300.4600 #### [facility] [address] [place], [address] Observed: 01/16/2018 Status: F Source: [place] CULTURE, URINE 12:48 PM [facility] RE[facility]IT[facility] Order Date: 01/14/18 Comments: on telemetry UA sample. Urine Culture Culture exhibits no growth. Performed By: #### M100.0650 #### [facility] [address] [facility] [place], [address] TYPE AND SCREEN Collected: 01/16/2018 Status: F Source: [place] 8:50 AM [facility] RE[facility] Order Comment: CMV NEG? N Number of units to transfuse: 1 Is this product for anemia associated with hemoglobinopathy? N Is pt's Hgb is </= to 7.0 mg/dl or Hct </= 21%? N Is there an orthostatic change in BP (SBP drop > 10mmHg)? N Is this for PREOP anemia correction prior to anesthesia? N Reason for Ordering Blood: Chronic Is there symptomatic anemia? N Are the blood/blood products to be transfused? Y Is the patient having/had surgery? N DELAY IN TESTING DUE TO PATIENT HAVING MULTIPLE ANTIBODIES AND TRYING TO FIND A COMPATIBLE UNIT. MCRABB NOTIFIED AT 0915 BY MARI. UNITS WILL HAVE TO BE ORDERED FROM [facility] FOR CROSSMATCH. MCRABB NOTIFIED 1100. WILL CALL FLOOR SOON AVAILABLE. BLOOD FIRE LIEUTENANT PICKING UNITS UP FROM [facility] STAT AT 1200. Give When? When Ready Irradiated? N Leukodepleted? Y TYPE CODE TESTS RESULT OUT OF RANGE REFERENCE UNITS LAB B10.0800 O Normal BLOOD TYPE GEL POSITIVE LAB B100.4000 High Antibody POSITIVE Screen Performed By: #### B101.7450, B101.1999 #### [facility] [address] [place], [place], [id number] ANTIBODY PANEL ID Collected: 01/16/2018 Status: F Source: [place] 8:50 AM [facility] Order Comment: CMV NEG? N Number of units to transfuse: 1 Is this product for anemia associated with hemoglobinopathy? N Is pt's Hgb is </= to 7.0 mg/dl or Hct </= 21%? N Is there an orthostatic change in BP (SBP drop > 10mmHg)? N Is this for PREOP anemia correction prior to anesthesia? N Reason for Ordering Blood: Chronic Is there symptomatic anemia? N Are the blood/blood products to be transfused? Y Is the patient having/had surgery? N DELAY IN TESTING DUE TO PATIENT HAVING MULTIPLE ANTIBODIES AND TRYING TO FIND A COMPATIBLE UNIT. MCRABB NOTIFIED AT 0915 BY MARI. UNITS WILL HAVE TO BE ORDERED FROM [facility] FOR CROSSMATCH. MCRABB NOTIFIED 1100. WILL CALL FLOOR SOON AVAILABLE. BLOOD FIRE LIEUTENANT PICKING UNITS UP FROM [facility] STAT AT 1200. Give When? When Ready Irradiated? N Leukodepleted? Y TYPE CODE TESTS RESULT OUT OF REFERENCE UNITS RANGE LAB B101.2000 ANTIBODY PANEL Result Comment: ANTI-K ANTI-LITTLE e Performed By: #### B101.7450, B101.1999 #### [facility] [address] [place], [place], [id number] RC Collected: 01/16/2018 Status: F Source: [place] 8:50 AM [facility] TYPE CODE TESTS RESULT OUT OF REFERENCE UNITS RANGE LAB U100.0000 [id number] TRANSFUSED PRODUCT: T AND S with Crossmatch, Red Cells COUNT: 1 Performed By: #### U100.0000 #### [facility] - refer to report for specific site VENOUS DUPLEX LOWER Observed: 01/16/2018 Status: F Source: [place] EXTREMITY 8:35 AM [facility] REPOSITORY [facility] Cardiovascular Services [address] [place] [address] Venous Duplex US - Caleb Extrem 01/15/18 1042 MR#: [id number] Acct: [id number] Name: YUN NELSON Rep #: [id number] : 1960 57 From: Bang Jarrett MD Attending Dr: Jamaal Nicole Status: ADM IN Ordering Dr: Sha Reyes MD Date: 01/14/18 Location: [facility] Sex: F C Admitted: 01/14/18 Reason For Study: BLE SWELLING RIGHT LEFT GSV is normal. GSV is normal. CFV is compressible, spontaneous, phasic, CFV is compressible, spontaneous, phasic, competent and demonstrates normal competent, and demonstrates normal augmentation. augmentation. FV is compressible, spontaneous, phasic, FV is compressible, spontaneous, phasic, competent and demonstrates normal competent and demonstrates normal augmentation. augmentation. POP V is compressible, spontaneous, phasic, POP V is compressible, spontaneous, phasic, competent and demonstrates normal competent and demonstrates normal augmentation. augmentation. T/P Trunk is compressible. T/P Trunk is compressible. PTV is compressible. PTV is compressible. RT PerV is compressible. LT PerV is compressible. Procedure Exam performed portable in patient room. The exam was diagnostic. A preliminary report was called and/or faxed to [facility]. <> Interpretation Summary Deep veins of the lower extremities are bilaterally patent and compressible segmentally. There is no evidence of deep vein thrombosis on either side. Valvular competence appears intact within the proximal deep venous systems bilaterally. The greater saphenous veins appear bilaterally patent and compressible segmentally. Ordering Physician: Sha Reyes Referring Physician: Lawrence Fink Performed By: Waylon, Jaye, RDCS, RVT 01/16/18833 Date Bang Jarrett MD CC: Jamaal Nicole; Lawrence Fink DO; Sha Reyes MD Date Dictated: 01/15/181041 Date Transcribed: 01/16/18833 Solar Maintenance Technician: Signed BASIC METABOLIC Collected: 01/16/2018 Status: F Source: [place] PROFILE (BMP) 5:04 AM [facility] RE[facility] TYPE CODE TESTS RESULT OUT OF RANGE REFERENCE UNITS LAB L501.0100 74-106 mg/dL Normal GLU 76 Result Comment: Please note revised GLUCOSE reference range effective 2017. LAB L501.1000 7-18 mg/dL High BUN 26 LAB L501.1100 0.55-1.02 mg/dL High CREAT,SERUM 5.03 Result Comment: The validity of the calculated GFR AND GFRAA in patients over 70 years has not been determined. Clinical correlation is essential. LAB L501.1110 >60 mL/min Low EST GFR 10 Result Comment: Non- GFR Calc LAB L501.1115 >60 mL/min Low EST GFR - AA 11 Result Comment: GFR Calc LAB L501.1255 ml/min Normal Estimated CRCL 9.54 LAB L501.1300 10-20 RATIO Low BUN/CRE 5.2 LAB L501.2200 8.5-10. mg/dL Low 1 CA 8.0 LAB L501.5300 136-145 mmol/L Normal NA 136 LAB L501.5600 3.5-5.1 mmol/L Normal K 3.7 LAB L501.5900 98-107 mmol/L Low CL 96 LAB L501.6100 21.0-32 mmol/L Normal .0 CO2 31.0 LAB L501.6200 5-15 Normal GAP 9 Performed By: #### L500.2500 #### [facility] [address] [place], [address] CBC W/DIFF, AUTOMATED Collected: 01/16/2018 Status: F Source: [place] 5:04 AM [facility] TYPE CODE TESTS RESULT OUT OF RANGE REFERENCE UNITS LAB L100.1000 4.4-11.0 K/mm3 Low WBC 3.9 LAB L100.1200 4.2-5.4 M/mm3 Low RBC 2.67 LAB L100.1300 12.0-15.0 g/dl Low HGB 7.2 LAB L100.1400 37-47 % Low HCT 23.4 LAB L100.1500 81-99 fL Normal MCV 87.6 LAB L100.1600 27.0-32.0 pg Normal MCH 27.0 LAB L100.1700 32-36 g/gl Low MCHC 30.8 LAB L100.1810 11.6-14.6 % High RDW CV 17.3 LAB L100.1820 35.1-43.9 fl High RDW SD 55.1 LAB L100.1900 150-450 K/mm3 Normal PLT 150 LAB L100.2000 6.2-12.0 fl Normal MPV 10.4 LAB L100.2100 47-70 % High NEUT% 75.7 LAB L100.2200 19-41 % Low LY% 13.0 LAB L100.2300 0-10 % Normal MONO% 9.2 LAB L100.2400 0-5 % Normal EO% 1.3 LAB L100.2500 0-1 % Normal BASO% 0.3 LAB L100.2550 0.0-0.9 % Normal IM GRAN % 0.500 Result Comment: IG% - Immature Granulocytes (promyelocytes, myelocytes and metamyelocytes) > 1% indicates that a LEFT SHIFT is Present. LAB L100.2620 2.0-7.7 X10 3/uL Normal Absolute Neut 3.0 LAB L100.2720 0.83-4.51 X10 3/ul Low Absolute Lymph 0.51 Performed By: #### L100.0100 #### [facility] [address] [place] [address]. [place], [place], [address] CHEST PA AND LATERAL Observed: 01/16/2018 Status: F Source: [place] 12:00 AM [facility] RE[facility]IT[facility] Imaging Services [address] [place], [place] [address] [address] Chest PA and Lateral MR#: [id number] Acct: [id number] Name: YUN NELSON Rep #: [id number] : 1960 F 57 From: Jose De Jesus Collado MD PCP: Lawrence Fink DO Status: ADM IN Study: Chest PA and Lateral Date of Exam: 01/16/18 Exam# [id number] Ordering Dr: Sha Reyes MD STUDY: X-RAY CHEST REASON FOR EXAM: Female, 57 years old. The patient has a history of endometrial carcinoma. TECHNIQUE: AP and lateral views of the chest. COMPARISON: Comparison is made with prior chest radiograph dated January 14, 2018. FINDINGS: EKG electrodes are seen. Stable elevation of the right hemidiaphragm with volume loss in the right hemidiaphragm. Stable 4 cm x 4.5 cm inhomogeneous nodule in the right lung base. There is evidence of a airspace disease in the right upper and right mid lung. This is unchanged. The left lung is clear. Normal size heart. Normal mediastinum and nacho. Normal visualized pulmonary arteries. Normal visualized aortic arch and descending thoracic aorta. Normal visualized thoracic spine. Normal visualized ribs, clavicles, and shoulders. There is no demonstrated abnormality of the visualized soft tissue structures of the upper abdomen. RAD/Chest PA and Lateral IMPRESSION: Stable examination. Stable right lower lobe pulmonary nodule with right upper lobe and in the right midlung airspace disease. Electronically Signed: Jose De Jesus Collado MD at 9:25 EST Tel [phone], Service support , CC: Lawrence Fink DO; Sha Reyes MD Solar Maintenance Technician: Signed CONSULTATION Observed: 01/15/2018 Status: F Source: [place] 5:24 PM [facility] RE[facility]ITORY [facility] Medical Records Department [address] [place] [id number] Consultation 01/15/18 1715 MR#: [id number] Acct: [id number] Name: YUN NELSON Rep #: [id number] : 1960 57 From: Elena Morales MD PCP: Lawrence Fink, DO Status: ADM IN Y Location: [place] [address] Problem List (1) End-stage renal disease on hemodialysis Status: Chronic Consultation - Renal PCP/ Referring MD: Requesting physician: [] Primary care physician: Lawrence Dozier - History of Present Illness History of Present Illness: The patient is a 57 year old F [facility] metastatic endometrial CA, ESRD on TTS. Pt is currently on chemotherapy weekly for 3 weeks and off for week Pt presented with fever cough and SOB. Pt was found to have right side pneumonia. Pt is being treated with IV Abx Pt goes to [facility] . Dr. King is the primary dial brusher Pt was seen today during HD session. She is tolerating the session well ROS: 12 systems review is negative except what mentioned in HPI [] - Allergies Allergies: Allergies No Known Allergies Allergy (Verified 01/14/18 19:37) - Current Medications Current Medications: Current Medications Acetaminophen (Tylenol) 650 mg PO Q4H PRN PRN PRN Reason: FEVER Acetaminophen (Tylenol) 650 mg PO Q4H PRN PRN PRN Reason: Mild-Moderate Pain/Headache Al Hydroxide/Mg Hydroxide (Mylanta Ii) 30 ml PO Q6H PRN PRN PRN Reason: Gastric Burning Albuterol Sulfate (Ventolin Aerosols) 2.5 mg INHALATION Q2H PRN PRN PRN Reason: SHORTNESS OF BREATH Albuterol/Ipratropium (Duoneb) 3 ml INHALATION Q6H.RT KRISTOPHER Last Admin: 01/15/18 13:03 Dose: 3 ml Amlodipine Besylate (Norvasc) 10 mg PO DAILY [facility] Calcium Acetate (Phoslo Gel Cap) 1,334 mg PO TIDCM KRISTOPHER Docusate Sodium (Colace) 100 mg PO BID PRN PRN Reason: Constipation Famotidine (Pepcid) 20 mg PO BID [facility] Last Admin: 01/15/18 10:50 Dose: 20 mg Folic Acid (Folic Acid) 1 mg PO DAILY@0800 [facility] Guaifenesin (Mucinex) 1,200 mg PO BID [facility] Last Admin: 01/15/18 10:49 Dose: 1,200 mg Heparin Sodium (Porcine) (Heparin Na) 5,000 unit SC Q8 [facility] Last Admin: 01/15/18 14:16 Dose: Not Given Vancomycin IV Pharmacy to Dose (1 ea/ Sodium Chloride) 500 mls @ 250 mls/hr IV DAILY PRN; Protocol Cefepime HCl 1 gm/ Sodium (Chloride) 50 mls @ 100 mls/hr IV Q24 [facility] Last Admin: 01/15/18 10:49 Dose: 100 mls/hr Lisinopril (Zestril) 20 mg PO BID [facility] Morphine Sulfate () 1 - 2 mg IV Q4H PRN PRN PRN Reason: SEVERE PAIN (6-10) Multivit/Ca Carb/B Cmplx/FA/Prenat (Nephrocaps, Renaphro) 1 capsule PO DAILY [facility] Ondansetron HCl (Zofran) 4 mg IV Q6H PRN PRN PRN Reason: NAUSEA Oxycodone HCl (Oxyir) 5 mg PO Q4H PRN PRN PRN Reason: Moderate Pain (pain scale 4-5) Last Admin: 01/15/18 06:20 Dose: 5 mg Polyethylene Glycol (Miralax) 17 gm PO DAILY [facility] Last Admin: 01/15/18 10:49 Dose: Not Given Sodium Chloride () 5 - 30 ml IV UD PRN PRN Reason: SALINE FLUSH Vancomycin HCl (Vancomycin Renal/Hd Dosing) 1 unit MISCELL. TuThSa@0800 [facility] Last Admin: 01/15/18 09:40 Dose: Not Given Vancomycin HCl () 1 lab MISCELL. TuThSa@0600 [facility] Zolpidem Tartrate (Ambien (Generic)) 5 mg PO QHS PRN PRN PRN Reason: SLEEP - Past Medical History Past Medical History (Chronic Problems): Chronic Problems Endometrial cancer (Chronic) Status post hysterectomy, cystectomy and partial colectomy due to metastatic disease End-stage renal disease on hemodialysis (Chronic) History of hysterectomy for cancer (Chronic) History of nephrectomy (Chronic) Anemia of chronic renal failure, stage 5 (Chronic) Anemia of chronic renal failure (Chronic) Hypertension (Chronic) Obesity (BMI 30-39.9) (Chronic) History of colostomy (Chronic) History of ileal conduit (Chronic) - Past Surgical History Surgical History: hysterectomy - for cervical cancer, - - Left nephrectomy for cancer with rt ileoconduit, Colostomy, Hysterectomy with BL RAHEEL, AVF RUE. - Social History Smoking Status: Former smoker - Quit about 10-15 years ago; states never a big smoker Had cigarette smoking. - Family History Paternal History Items: No pertinent history Maternal History Items: No pertinent history - Physical Exam General: Alert, Oriented x3 HEENT: Atraumatic Oral: Moist Mucosa Neck: Supple, No JVD Lungs: Clear to auscultation, Normal air movement, No rhonchi, No wheeze Cardiovascular: Regular rate, Regular Rhythm, Normal S1, Normal S2 Abdomen: Bowel Sounds Present, Soft, Non Tender, Non-Distended Extremities: No clubbing, No cyanosis, No edema Skin: No rashes Musculoskeletal: No Tenderness to Palpation of Joints or Extremities Lymphatic: No Cervical, Supraclavicular, or Inguinal Adenopathy Neurological: Cranial nerves II-XII grossly intact, Neuro grossly intact Psych/Mental Status: Normal Affect Vital Signs Temp Pulse Resp BP Pulse Ox 98.7 F 86 20 H 124/69 H 96 01/15/18 11:00 01/15/18 15:50 01/15/18 13:03 01/15/18 11:00 01/15/18 11:00 Oxygen Flow Rate (L/min) 2 Oxygen Delivery Method Nasal Cannula Weight: 72.7 kg Body Mass Index (BMI) 29.5 Intake and Output for Last 24 Hours Intake Total 1203 / 1203 Output Total 2 / 2 Balance 1201 / 1201 Microbiology Past 72 Hours 01/14/18 20:50 Respiratory Panel (PCR) - Final Mucosa - Throat 01/14/18 20:00 Influenza Types A,B Direct FA ([facility]EP) - Final Mucosa - Nasopharyngeal Laboratory Tests Past 24 Hrs WBC RBC Hgb Hct MCV MCH MCHC RDW RDW Differential Assessment/Plan All Active Problems HCAP (healthcare-associated pneumonia) (Acute) 1- ESRD on MWF HD schedule. Pt goes to [facility] . Dr. King is the primary dial brusher HD session today: BQ 400 DQ 600 UF 2.4 L HD access is right UE AVF 2- HTN: BP is well controlled. continue the same BP meds 3- Anemia: Hgb is 9.2 .I will hold giving GREG in patient with active cancer monitor H and H 4- BMD:continue Ca acetate with meals 5- Sepsis due to pneumonia On cefepime and vancomycin. cefepime is appropriately dosed for ESRD patient on HD Renal team will continue to follow ELENA MORALES MD 01/15/18 1724 <Electronically signed by Elena Morales MD> Date Elena Morales MD Cosigner Signature (if applicable): Date CC: Leanne King M.D.; Lawrence Fink DO; Thania De Souza MD; Curry Carreno MD Signed CONSULTATION Observed: 01/15/2018 Status: F Source: [place] 9:45 AM [facility] REPOSIT[facility] Medical Records Department [address] [place] [id number] Consultation 01/15/18 0939 MR#: [id number] Acct: [id number] Name: YUN NELSON Rep #: [id number] : 1960 57 From: Curry Carreno MD PCP: Lawrence Fink DO Status: ADM IN Y Location: [place] [address] Problem List (1) Endometrial cancer Status: Chronic Comment: Status post hysterectomy, cystectomy and partial colectomy due to metastatic disease Reason for Consult: fever Consulted by: Dr. De Souza History of Present Illness: The patient is a 57 year old F with endometrial cancer, on chemo, and h/o ESRD who presented yesterday with 4-5 days of nausea, vomiting, mild SOB, and R hip pain. No congestion, small amount of greenish sputum. Reportedly with URI as well. No issues with RUE fistula. No blood in ostomy. Fever up to 99 at home with some chills. Full ROS performed and neg except as noted above. - Medical History Past Medical History (Chronic Problems): Chronic Problems Bacteremia (Chronic) 02/22/16 Bld Cx preliminary Gram positive keyla Influenza A (Chronic) 02/22/16 Influenza A Endometrial cancer (Chronic) Status post hysterectomy, cystectomy and partial colectomy due to metastatic disease End-stage renal disease on hemodialysis (Chronic) History of hysterectomy for cancer (Chronic) History of nephrectomy (Chronic) Anemia of chronic renal failure, stage 5 (Chronic) Anemia of chronic renal failure (Chronic) Hypertension (Chronic) Obesity (BMI 30-39.9) (Chronic) History of colostomy (Chronic) History of ileal conduit (Chronic) Allergies/Adverse Reactions: Allergies No Known Allergies Allergy (Verified 01/14/18 19:37) Home Medications: Ambulatory Orders Medication Instructions Recorded - Social History SMOKING STATUS:: Former smoker Vital Signs Temp Pulse Resp BP Pulse Ox 99.4 F H 92 19 H 125/60 H 98 01/15/18 05:00 01/15/18 07:48 01/15/18 07:25 01/15/18 05:00 01/15/18 07:25 Oxygen Flow Rate (L/min) 2 Oxygen Delivery Method Nasal Cannula Weight: 72.7 kg Body Mass Index (BMI) 29.5 Microbiology Past 72 Hours 01/14/18 20:00 Influenza Types A,B Direct FA ([facility]) - Final Mucosa - Nasopharyngeal Laboratory Tests Past 24 Hrs WBC RBC Hgb Hct MCV MCH MCHC RDW RDW Differential - Other Studies Radiology: [] reviewed Other Studies: [] Route of nutrition/ use of supplements: [] Nutritional Intake: [] IV Site: [] Saavedra Catheter: [] - Physical Exam General: Alert, Oriented x3, Cooperative, No apparent distress HEENT: Atraumatic, PERRLA, EOMI Neck: Supple, No Nodes Lungs: Diminished Cardiovascular: Regular rate, Regular Rhythm, No murmurs Abdomen: Soft, Non Tender, Non-Distended Extremities: Edema Skin: No rashes IV Site: - - RUE with no redness or drainage Musculoskeletal: - - some R hip soreness Neurological: Cranial nerves II-XII grossly intact - Assessment/Plan Antibiotics: [] Assessment/Plan: [] No clear focal signs of infection. Some of her symptoms could be explained by progression of her cancer. Does have chronic lung changes and some new SOB and sputum. Will order sputum cx if she can provide a sample. With her chemo and ESRD, I think it is reasonable to cover empirically while cxs are pending. Cont vanc. Will narrow meropenem to cefepime. No fever, normal wbc here. Resp viral panel pcr pending. Will follow, thank you, d/w Dr. De Souza. 01/15/18 0945 <Electronically signed by Curry Carreno MD> Date Curry Carreno MD Cosigner Signature (if applicable): Date CC: Leanne King M.D.; Lawrence Fink DO; Thania De Souza MD; Curry Carreno MD Signed CONSULTATION Observed: 01/15/2018 Status: F Source: [place] 8:15 AM [facility] Medical Records Department [address] [place] [id number] Consultation 01/15/18 0754 MR#: [id number] Acct: [id number] Name: YUN NELSON Rep #: [id number] : 1960 57 From: Thania De Souza MD PCP: Lawrence Fink DO Status: ADM IN Location: [place] [address] Problem List (1) Endometrial cancer Status: Chronic Comment: Status post hysterectomy, cystectomy and partial colectomy due to metastatic disease (2) HCAP (healthcare-associated pneumonia) Status: Acute (3) Shortness of breath Status: Acute - Consult Date of Consult: 01/15/[address] Reyes regarding a patient with fever and shortness of breath undergoing chemotherapy treatment for metastatic uterine cancer. My final recommendation will be communicated by electronic medical record into the nursing staff. - Reason for Consult History of Present Illness Date of Admission: 01/14/18 Chief Complaint: Shortness of breath, cough and fever The patient is a 57 year old F with history of endometrial cancer with metastases to left kidney, bladder, possible lung as per the patient status post hysterectomy, left nephrectomy for renal cell carcinoma in 2009., ileal conduit on right side for urine and colostomy on left side, ESRD on HD, T/T/S, being managed by [place] dial brusher came to ER with fever, cough, shortness of breath for 4 days. Patient had last therapy treatment with paclitaxel on last Sunday. She was getting sick since Thanksgi which progressively got worse. Her also has a cold and cough at home for last 2 weeks. Patient also complained of pain over right hip and right pelvic region for the last week. Her pain is worse when walking and standing. Patient denies any previous history of DVT/PE. Chest x-ray in ED shows persisting airspace specifically in right mid to lower lung field probably associated with right lower lobe atelectasis. Previous left lung opacity has resolved. Oncology history: -Laparoscopic left radical nephrectomy 2009 for renal cell carcinoma. -Concurrent cisplatin and radiation therapy August - September 2009 for with brachytherapy October 2009. -Laparoscopic left lymph node dissection and right purulent node biopsy for effusion no cancer was found in 2009 -Multiple surgical and vaginal biopsy for cervical cancer in 2010. 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 -Contacted radiation therapy for metastatic disease in her right middle lobe 2014. -Palliative radiation therapy to trachea and right lung September- October 2016 Previous chemotherapy: 1. Taxol 2. Neratinib Current treatment: Taxol weekly Past Medical History Past Medical History (Chronic Problems): Chronic Problems Bacteremia (Chronic) 02/22/16 Bld Cx preliminary Gram positive keyla Influenza A (Chronic) 02/22/16 Influenza A Endometrial cancer (Chronic) Status post hysterectomy, cystectomy and partial colectomy due to metastatic disease End-stage renal disease on hemodialysis (Chronic) History of hysterectomy for cancer (Chronic) History of nephrectomy (Chronic) Anemia of chronic renal failure, stage 5 (Chronic) Anemia of chronic renal failure (Chronic) Hypertension (Chronic) Obesity (BMI 30-39.9) (Chronic) History of colostomy (Chronic) History of ileal conduit (Chronic) Allergies No Known Allergies Allergy (Verified 01/14/18 19:37) Home Medications: Ambulatory Orders Medication Instructions Recorded Surgical History: hysterectomy - for cervical cancer, - - Left nephrectomy for cancer with rt ileoconduit, Colostomy, Hysterectomy with BL RAHEEL, AVF RUE. 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 Tobacco Use: Cigarettes - *Family History Paternal History Items: No pertinent history Maternal History Items: No pertinent history Review of Systems Constitutional: Reports: Anorexia, Chills, Fever, Night Sweats, Malaise, Weakness, Weight Change, Fatigue HEENT: Denies: Head Aches, Sinus Congestion, Sinus Drainage Cardiovascular: Reports: Light Headedness. Denies: Chest Pain, Palpitations Respiratory: Reports: Cough, Shortness of Breath, Shortness of breath at rest, Shortness of breath upon exertion. Denies: Sputum production Gastrointestinal: Reports: Nausea, Vomiting. Denies: Abdominal Pain Genitourinary: Reports: - - Very low urine output in urostomy bag. On hemodialysis. Denies: Dysuria, Frequency Musculoskeletal: Reports: Joint Pain, Joint stiffness, Joint Tenderness - Right hip, Muscle pain Skin: Denies: Rash, Wounds Neurological: Denies: Numbness, Tingling, Focal weakness Psychiatric: Reports: Anxiety. Denies: Depression, Homicidal Ideations, Suicidal Ideations Hematologic/ Lymphatic: Denies: Easy Bruising, Easy Bleeding VTE Information - Inpt Only VTE Present on Admission: No VTE Mechan Device Prophylaxis: None VTE Pharm Prophylaxis ordered?: Yes - Physical Exam General: Alert, Oriented x3, Cooperative HEENT: Atraumatic, PERRLA, EOMI, Normocephalic Oral: Dry Mucosa Neck: Supple, No JVD, Negative Carotid Bruits Lungs: Diminished - Air entry diminished in posterior half of right lung., Rales - Coarse rales present, Rhonchi - Rhonchi morning right lung, Short of Breath, Tachypneic Cardiovascular: Regular rate, Regular Rhythm, Normal S1, Normal S2, No murmurs Abdomen: Bowel Sounds Present, Soft, Non Tender, Non-Distended, - - Right lower abdomen ileal conduit with urobag. Left lower abdomen with colostomy bag Extremities: No edema, Capillary Refill Less than 3 Seconds Skin: No rashes, No breakdown Musculoskeletal: Arthritic Changes, Muscle Wasting, Tenderness - Right hip and right pelvic bone Neurological: Cranial nerves II-XII grossly intact, Deep Tendon Reflexes 2+/4 and Symmetrical, Neuro grossly intact, - - Muscle weakness in lower extremity, 4+/5 Psych/Mental Status: Normal Affect, Appropriate Vital Signs Temp Pulse Resp BP Pulse Ox 99.3 F H 98 17 128/62 H 97 01/14/18 21:48 01/14/18 21:48 01/14/18 21:48 01/14/18 21:48 01/14/18 21:48 Oxygen Flow Rate (L/min) 2 Oxygen Delivery Method Nasal Cannula Weight: 160 lb 4.417 oz Body Mass Index (BMI) 29.5 Microbiology Past 72 Hours 01/14/18 20:00 Influenza Types A,B Direct FA ([facility]) - Final Mucosa - Nasopharyngeal Laboratory Tests Past 24 Hrs WBC 8.0 RBC 3.39 L Hgb 9.2 L Hct 29.6 L MCV 87.3 MCH 27.1 MCHC 31.1 L RDW 17.1 H RDW Differential 54.8 H Assessment/Plan All Active Problems Shortness of breath (Acute) HCAP (healthcare-associated pneumonia) (Acute) Acute respiratory failure with hypoxemia (Acute) Metastatic uterine cancer (chronic) End-stage renal disease on HD (chronic) The patient is a 57 year old F with history of endometrial cancer with metastases to lung as per the patient status post hysterectomy, left nephrectomy- renal cell cancer, ileal conduit on right side for urine and colostomy on left side, ESRD on HD, T/T/S, being managed by [place] dial brusher She came to ER with fever, cough, shortness of breath for last 4 days. Patient received her last course of chemotherapy a week ago. Patient also complained of pain over right thigh and right pelvic region. Chest x-ray in ED shows persisting airspace specifically in right mid to lower lung field probably associated with right lower lobe atelectasis. Previous left lung opacity has resolved. 1. Hospital- associated pneumonia versus viral infection. -Respiratory panel ordered. And blood and sputum culture pending. -ID consult -Continue meropenem pending blood and sputum culture results. -Right lower lobe consolidation could be related to radiation changes or cancer progression 2. Endometrial carcinoma with wide metastasis possible stage IV endometrial carcinoma: -Compare CT scan from our office and discussed possible hospice referral if there is progression of disease -We will discuss with Dr. Arteaga 3. Right thigh and pelvic pain, concern of metastasis or progression of disease in her pelvis -X-ray is negative order CT without contrast of the pelvis for the evaluation -Continue morphine as needed for pain. DVT prophylaxis: On heparin 5000 units subcutaneous 3 times daily Clinical Impression(s) from Imaging Studies Chest X-Ray 01/14/18 20:02 IMPRESSION: Persisting airspace opacities in the right mid to lower lung field. Resolution of the previously seen left-sided opacities. Microbiology Past 72 Hours 01/14/18 20:00 Mucosa - Nasopharyngeal Influenza Types A,B Direct FA ([facility]) - Final cc: Dr. Eric Arteaga; Dr. Joleen Reyes; Dr. Lawrence Dozier 01/15/18 0815 <Electronically signed by Thania De Souza MD> Date Thania De Souza MD Cosigner Signature (if applicable): Date CC: Leanne King M.D.; Lawrence Fink DO; Thania De Souza MD; Curry Carreno MD Signed CTA CHEST W/WO Observed: 01/15/2018 Status: F Source: [place] CONTRAST 1:01 AM [facility] REPOSIT[facility] Imaging Services [address] [place] [id number] CTA Chest W/WO Contrast MR#: [id number] Acct: [id number] Name: YUN NELSON Rep #: [id number] : 1960 F 57 From: Srikanth Acuña MD PCP: Lawrence Fink DO Status: ADM IN Study: CTA Chest W/WO Contrast Date of Exam: 01/15/18 Exam# [id number] Ordering Dr: Eric Desir MD HISTORY: DDElevated D-Dimer,SOB,COUGH AND FEVERHX:HTN,ENDOMETRIAL CANCER,KIDNEY DZ TECHNIQUE: Helically acquired images were obtained of the chest following IV contrast as per pulmonary angiogram protocol with 3D reconstructions. A radiation dose optimization technique was used for this scan. IV Contrast dosage and agent: 75 cc Isovue 370 contrast COMPARISON: 03/03/2015 CTA chest and chest x-ray 01/14/2018 FINDINGS: No CT findings of pulmonary embolic disease. The right upper lobe and right descending pulmonary artery are encased and narrowed by tumor but not obstructed. Thoracic aorta is normal in caliber. No pericardial effusion. Right infrahilar and right middle lobe oval soft tissue mass which measures approximately 4.7 x 3.4 cm and increased in size compared to previous. The medial segment right middle lobe bronchus is occluded. Widespread areas of consolidation involving the right upper lobe, right perihilar region, and right lower lobe. Small right pleural effusion. Right hemithorax volume loss with mild elevation of the right hemidiaphragm. Left upper lobe 9 mm subpleural nodule compatible with a metastasis. Left lower lobe (axial image 61/230) 1.2 x 0.7 cm pleural- based nodule compatible with a metastasis Hepatosplenomegaly. Gallstones. Benign-appearing varix-like structure at the right axilla CT/CTA Chest W/WO Contrast IMPRESSION: 1. No evidence of pulmonary embolic disease. 2. Right infrahilar and right middle lobe 4.7 cm mass, increased in size compared to previous. Small right pleural effusion. 3. Right lung extensive consolidation with volume loss. Radiation therapy, if previously performed, could show similar findings. 4. Several subpleural and pleural-based left lung nodules compatible with metastases. Individualized dose optimization techniques were used for this CT. at 0402 Reported and signed by: Srikanth Acuña MD Electronically Signed: Srikanth Acuña, at 3:59 EST Tel , Service support , CC: Lawrence Fink DO; Eric Desir MD Solar Maintenance Technician: Signed SR-CTA CHEST W/WO Observed: 01/15/2018 Status: F Source: [place] CONTRAST IMPORT 12:[address] [facility] REPOSITORY Images were obtained outside of [facility] [id number] EMERGENCY DEPARTMENT Observed: 01/14/2018 Status: F Source: [place] SUMMARY 11:12 PM [facility] RE[facility]ITORY [facility] Medical Records Department [address] [place] [address] Emergency Department Summary 01/14/182023 MR#: [id number] Acct: [id number] Name: YUN NELSON Rep #: [id number] : 1960 57 From: Jorge Jimenez MD PCP: Lawrence Fink, Status: ADM IN - ER Visit Summary Date of Service: 01/14/18 Chief Complaint: Cough, fever History of Present Illness: The patient is a 57 F with history of end-stage renal disease who is on dialysis Sunday, , and Sunday along with metastatic cervical cancer who is currently on chemo presents with fever, cough, shortness of breath. Patient's last chemo was last Sunday. She did have dialysis treatment on Sunday. She is scheduled for dialysis tomorrow. She states that over the past 4 days, she had intermittent fevers, cough with productive sputum, generalized malaise, myalgias and arthralgias. She is also had some pain in her right thigh. She denies any dysuria. She is not on oxygen at home. The patient does continue to smoke. Physical Examination: Vital signs reviewed General: Well-nourished, well-developed Head: Normocephalic, atraumatic Eyes: Pupils equal and reactive, extraocular muscles intact Neck, supple, no lymphadenopathy Heart: Regular rate and rhythm Respiratory: No distress, wheezing focally in the right lower lobe Abdomen: Soft, nontender, nondistended, no peritoneal signs, ostomy site is intact, no tenderness Back: Nontender Extremities: Nontender, no edema, no cords, pulses in the lower extremities are normal Skin: Normal color no rash Neuro: Alert and oriented, no focal or lateralizing deficits Test Results: [] Emergency Department Course and Treatment: The patient presents with cough, fever, shortness of breath. She does have focal change in lung sounds in the right lower lobe. She was given nebulized breathing treatments and Tylenol. She was also given something for pain. Her chest x-ray does confirm a right lower lobe infiltrate. Screening labs relatively unremarkable. He does demonstrate a chronic kidney disease. Her lactate is normal. However, given the patient's history of immunosuppression with her chemotherapy, the fact that she is on dialysis, and now has hypoxia I do feel that she is going to require admission. Patient was covered with broad-spectrum antibiotics. She was discussed with the hospitalist will be admitted. Treatment Plan: [] Disposition: Admission Impression: 1. Healthcare associated pneumonia 2. Hypoxia 3. History of immunosuppression This note was generated with [employer] dictation software. It may contain incorrect words, spelling, and punctuation that were not noted in review of the chart prior to signing ED Disposition - Plan for ED Patient: Chief Complaint: General Illness Referrals: Lawrence Dozier DO [Primary Care Provider] - What to do if you have Problems For any increased pain, shortness of breath, bleeding, nausea or vomiting, chest pain, or any unexpected problems, contact your Primary Care Provider. Call [facility] ([phone]) or report to the closest Emergency Room. Call 911 if necessary. 01/14/18 2312 <Electronically signed by Jorge Jimenez MD> Date Jorge Jimenez MD Cosigner Signature (If Indicated): Date CC: Lawrence Fink DO HISTORY AND PHYSICAL Observed: 01/14/2018 Status: F Source: MONTEVIDEO EXAM 11:09 PM [facility] REPOSITORY [facility] Medical Records Department [address] [place] [id number] History and Physical 01/14/18 [id number] MR#: [id number] Acct: [id number] Name: JIMENAYUN D Rep #: [id number] : 1960 57 From: Sha Reyes MD PCP: Lawrence Fink DO Status: ADM IN Y Location: [place] [id number] Problem List (1) Shortness of breath Status: Acute (2) Bacteremia Status: Chronic Comment: 02/22/16 Bld Cx preliminary Gram positive keyla (3) HCAP (healthcare-associated pneumonia) Status: Acute (4) Influenza A Status: Chronic Comment: 02/22/16 Influenza A (5) Endometrial cancer Status: Chronic Comment: Status post hysterectomy, cystectomy and partial colectomy due to metastatic disease (6) End-stage renal disease on hemodialysis Status: Chronic (7) History of hysterectomy for cancer Status: Chronic (8) History of nephrectomy Status: Chronic (9) Acute respiratory failure with hypoxemia Status: Acute (10) Anemia of chronic renal failure, stage 5 Status: Chronic (11) Metabolic alkalosis Status: Resolved (12) Anemia of chronic renal failure Status: Chronic Qualifiers: Chronic kidney disease stage: stage 5 Qualified Code(s): N18.5 - Chronic kidney disease, stage 5; D63.1 - Anemia in chronic kidney disease (13) Hypertension Status: Chronic Qualifiers: Hypertension type: essential hypertension (14) Obesity (BMI 30-39.9) Status: Chronic (15) History of colostomy Status: Chronic (16) History of ileal conduit Status: Chronic History of Present Illness Date of Admission: 01/14/18 Chief Complaint: Shortness of breath, cough and fever for past 4 days. The patient is a 57 year old F with history of endometrial cancer with metastases to left kidney, bladder, possible lung as per the patient status post hysterectomy, left nephrectomy, ileal conduit on right side for urine and colostomy on left side, ESRD on HD, T/T/S, being managed by [place] dial brusher came to ER with fever, cough, shortness of breath for last 4 days. Patient had last chemo on last Sunday and she was getting sick since which progressively got worse. Patient gets chemo every Sunday for 3 weeks and then off for fourth Sunday. Patient also complained of pain over right thigh and right pelvic region which she said happens every year for last 3 years during decision. Patient denies any previous history of DVT/PE. Chest x-ray in ED shows persisting airspace specifically in right mid to lower lung field probably associated with right lower lobe atelectasis. Previous left lung opacity has resolved. Past Medical History Past Medical History (Chronic Problems): Chronic Problems Bacteremia (Chronic) 02/22/16 Bld Cx preliminary Gram positive keyla Influenza A (Chronic) 02/22/16 Influenza A Endometrial cancer (Chronic) Status post hysterectomy, cystectomy and partial colectomy due to metastatic disease End-stage renal disease on hemodialysis (Chronic) History of hysterectomy for cancer (Chronic) History of nephrectomy (Chronic) Anemia of chronic renal failure, stage 5 (Chronic) Anemia of chronic renal failure (Chronic) Hypertension (Chronic) Obesity (BMI 30-39.9) (Chronic) History of colostomy (Chronic) History of ileal conduit (Chronic) Allergies No Known Allergies Allergy (Verified 01/14/18 19:37) Home Medications: Ambulatory Orders Medication Instructions Recorded Surgical History: hysterectomy - for cervical cancer, - - Left nephrectomy for cancer with rt ileoconduit, Colostomy, Hysterectomy with BL RAHEEL, AVF RUE. 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 Tobacco Use: Cigarettes - *Family History Paternal History Items: No pertinent history Maternal History Items: No pertinent history Review of Systems Constitutional: Reports: Anorexia, Chills, Fever, Night Sweats, Malaise, Weakness, Weight Change, Fatigue HEENT: Denies: Head Aches, Sinus Congestion, Sinus Drainage Cardiovascular: Reports: Light Headedness. Denies: Chest Pain, Palpitations Respiratory: Reports: Cough, Shortness of Breath, Shortness of breath at rest, Shortness of breath upon exertion. Denies: Sputum production Gastrointestinal: Reports: Nausea, Vomiting. Denies: Abdominal Pain Genitourinary: Reports: - - Very low urine output in urostomy bag. On hemodialysis. Denies: Dysuria, Frequency Musculoskeletal: Reports: Joint Pain, Joint stiffness, Joint Tenderness - Right hip, Muscle pain Skin: Denies: Rash, Wounds Neurological: Denies: Numbness, Tingling, Focal weakness Psychiatric: Reports: Anxiety. Denies: Depression, Homicidal Ideations, Suicidal Ideations Hematologic/ Lymphatic: Denies: Easy Bruising, Easy Bleeding VTE Information - Inpt Only VTE Present on Admission: No VTE Mechan Device Prophylaxis: None VTE Pharm Prophylaxis ordered?: Yes - Physical Exam General: Alert, Oriented x3, Cooperative HEENT: Atraumatic, PERRLA, EOMI, Normocephalic Oral: Dry Mucosa Neck: Supple, No JVD, Negative Carotid Bruits Lungs: Diminished - Air entry diminished in posterior half of right lung., Rales - Coarse rales present, Rhonchi - Rhonchi morning right lung, Short of Breath, Tachypneic Cardiovascular: Regular rate, Regular Rhythm, Normal S1, Normal S2, No murmurs Abdomen: Bowel Sounds Present, Soft, Non Tender, Non-Distended, - - Right lower abdomen ileal conduit with urobag. Left lower abdomen with colostomy bag Extremities: No edema, Capillary Refill Less than 3 Seconds Skin: No rashes, No breakdown Musculoskeletal: Arthritic Changes, Muscle Wasting, Tenderness - Right hip and right pelvic bone Neurological: Cranial nerves II-XII grossly intact, Deep Tendon Reflexes 2+/4 and Symmetrical, Neuro grossly intact, - - Muscle weakness in lower extremity, 4+/5 Psych/Mental Status: Normal Affect, Appropriate Vital Signs Temp Pulse Resp BP Pulse Ox 99.3 F H 98 17 128/62 H 97 01/14/18 21:48 01/14/18 21:48 01/14/18 21:48 01/14/18 21:48 01/14/18 21:48 Oxygen Flow Rate (L/min) 2 Oxygen Delivery Method Nasal Cannula Weight: 160 lb 4.417 oz Body Mass Index (BMI) 29.5 Microbiology Past 72 Hours 01/14/18 20:00 Influenza Types A,B Direct FA (SANDEEP) - Final Mucosa - Nasopharyngeal Laboratory Tests Past 24 Hrs WBC 8.0 RBC 3.39 L Hgb 9.2 L Hct 29.6 L MCV 87.3 MCH 27.1 MCHC 31.1 L RDW 17.1 H RDW Differential 54.8 H Assessment/Plan All Active Problems Shortness of breath (Acute) HCAP (healthcare-associated pneumonia) (Acute) Acute respiratory failure with hypoxemia (Acute) Metabolic alkalosis (Resolved) Fluid overload (Resolved) Sepsis (Resolved) The patient is a 57 year old F with history of endometrial cancer with metastases to left kidney, bladder, possible lung as per the patient status post hysterectomy, left nephrectomy, ileal conduit on right side for urine and colostomy on left side, ESRD on HD, T/T/S, being managed by [place] dial brusher came to ER with fever, cough, shortness of breath for last 4 days. Patient had last chemo on last Sunday and she was getting sick since which progressively got worse. Patient gets chemo every Sunday for 3 weeks and then off for fourth Sunday. Patient also complained of pain over right thigh and right pelvic region which she said happens every year for last 3 years during decision. Patient denies any previous history of DVT/PE. Chest x-ray in ED shows persisting airspace specifically in right mid to lower lung field probably associated with right lower lobe atelectasis. Previous left lung opacity has resolved. 1. SIRS (R, T 99.3 Fahrenheit, sinus tachycardia, heart rate 111, tachypnea RR 24/min) complicated right middle and lower lung HCAP in immunocompromised host: Patient is being admitted in PCU on cardiac exercise physiologist. Lactic acid is normal. Patient does not have leukocytosis or thrombocytopenia. Respiratory panel ordered. Pneumonia workup with urinary antigens, sputum culture and blood cultures x2 ordered. UA with urine culture. Started on IV meropenem and vancomycin. MRSA nasal screen. ID consult for complicated pneumonia. When the patient can lay down, patient will need CT chest. 2. Endometrial carcinoma with wide metastasis possible stage IV endometrial carcinoma: Consult Dr. Arteaga, her oncologist for further opinion and recommendation. This has metastasis to bladder, left kidney, probably lung. 3. Right thigh and pelvic pain, concern of DVT: D-dimer is ordered. Venous Doppler of lower extremities. If d-dimer is positive, and WILL need CTPA to rule out PE. Right hip with pelvic x-ray ordered. 4. ESRD on hemodialysis: Consult [facility], Dr. King. On hemodialysis Sunday, and Sunday. 5. Other comorbidities include hypertension, obesity, ileal conduit, colostomy: Multiple comorbidities complicates the present care and expect difficult and delay recovery. Nursing care. DVT prophylaxis: On heparin 5000 units subcutaneous 3 times daily Clinical Impression(s) from Imaging Studies Chest X-Ray 01/14/18 20:02 IMPRESSION: Persisting airspace opacities in the right mid to lower lung field. Resolution of the previously seen left-sided opacities. Microbiology Past 72 Hours 01/14/18 20:00 Mucosa - Nasopharyngeal Influenza Types A,B Direct FA (SANDEEP) - Final Laboratory Results 01/14/18 20:00: WBC 8.0, RBC 3.39 L, Hgb 9.2 L, Hct 29.6 L, MCV 87.3, MCH 27.1, MCHC 31.1 L, RDW 17.1 H, RDW Differential 54.8 H, Plt Count 177, MPV 9.6, Immature Gran % (Auto) 0.100, Neut % (Auto) 88.9 H, Lymph % (Auto) 8.3 L, Boyle % (Auto) 2.4, Eos % (Auto) 0.2, Baso % (Auto) 0.1, Absolute Neuts (auto) 7.1, Absolute Lymphs (auto) 0.67 L, Total Counted Not Reportable 01/14/18 20:00: Sodium 135 L, Potassium 4.8, Chloride 96 L, Carbon Dioxide 29.0, Anion Gap 10, BUN 59 H, Creatinine 8.72 H*, Estim Creat Clear Calc 5.77, Est GFR (MDRD) Af Amer 6 L, Est GFR (MDRD) Non-Af 5 L, BUN/Creatinine Ratio 6.8 L, Glucose 106, Calcium 9.1, Total Bilirubin 0.40, AST 22, ALT 18, Alkaline Phosphatase 81, Total Protein 7.0, Albumin 2.8 L, Globulin 4.2, Albumin/Globulin Ratio 0.7 L 01/14/18 20:00: Lactic Acid 1.0 Code Visit Inpatient E AND M: [id number] Init Hosp L3 01/14/182 <Electronically signed by Sha Reyes MD> Date Sha Reyes MD Cosigner Signature: Date (if applicable) CC: Lawrence Fink DO; Sha Reyes MD Signed HIP, UNI W/ PELVIS Observed: 01/14/2018 Status: F Source: VAISHNAVI 2-3 VIEWS 11:08 PM [facility] REPOSITORY [facility] Imaging Services [address] [place] [id number] HIP, UNI W/ Pelvis 2-3 Views MR#: [id number] Acct: [id number] Name: YUN NELSON Rep #: [id number] : 1960 F 57 From: Srikanth Acuña MD PCP: Lawrence Fink DO Status: ADM IN Study: HIP, UNI W/ Pelvis 2-3 Views Date of Exam: 01/14/18 Exam# [id number] Ordering Dr: Sha Reyes MD HISTORY: RIGHT HIP PAIN. HAS METASTATIC ENDOMETRIAL CA COMPARISON: CT abdomen and pelvis 07/23/2014 FINDINGS: XR Hip Unilateral with Pelvis when performed; 3 Views: No fracture or acute disease identified. Osteoarthritis with marked narrowing of the right femoral acetabular joint. The left hip shows no corresponding significant arthritis. The right inferior pubic ramus shows a lucent defect, unchanged compared to CT exam in 2015. This may reflect the sequela of old trauma or possibly chronic osteolytic lesion. Right hemipelvis ileostomy noted. Multiple pelvic surgical clips. RAD/HIP, UNI W/ Pelvis 2-3 Views IMPRESSION: 1. Advanced osteoarthritis of the right hip. 2. No fracture or acute disease. 3. Chronic lucent defect of the right inferior pubic ramus. Please see above comment. If warranted, further evaluation with whole body bone scan could be obtained. at 0134 Reported and signed by: Srikanth Acuña MD Electronically Signed: Srikanth Acuña, at 1:32 EST Tel , Service support , CC: Lawrence Fink DO; Sha Reyes MD Solar Maintenance Technician: Signed Observed: 01/14/2018 Status: F Source: MONTEVIDEO RESPIRATORY PANEL 8:50 PM [facility]LECULAR REPOSITORY RP PANEL ADENOVIRUS Not Detected HUMAN METAPHNEUMO Not Detected INFLUENZA A Not Detected INFLUENZA A (SUBTYPE H1) Not Detected INFLUENZA A (SUBTYPE H3) Not Detected INFLUENZA B Not Detected PARAINFLUENZA 1 Not Detected PARAINFLUENZA 2 Not Detected PARAINFLUENZA 3 Not Detected PARAINFLUENZA 4 Not Detected RHINOVIRUS Not Detected RSV A Not Detected RSV B Not Detected NAAT METHOD Testing was performed using nucleic acid amplification Performed By: #### M100.638 #### [facility] [address] [place], [place], [id number] Observed: 01/14/2018 Status: F Source: VAISHNAVI CULTURE, BLOOD (WB) 8:45 PM [facility] HOSPITAL REPOSITORY BC No growth in 5 days. Performed By: #### M200.1000 #### [facility] [address] [place], [place], [id number] CBC W/DIFF, AUTOMATED Collected: 01/14/2018 Status: F Source: MONTEVIDEO 8:00 PM [facility] REPOSITORY TYPE CODE TESTS RESULT OUT OF RANGE REFERENCE UNITS LAB L100.1000 4.4-11.0 K/mm3 Normal WBC 8.0 LAB L100.1200 4.2-5.4 M/mm3 Low RBC 3.39 LAB L100.1300 12.0-15.0 g/dl Low HGB 9.2 LAB L100.1400 37-47 % Low HCT 29.6 LAB L100.1500 81-99 fL Normal MCV 87.3 LAB L100.1600 27.0-32.0 pg Normal MCH 27.1 LAB L100.1700 32-36 g/gl Low MCHC 31.1 LAB L100.1810 11.6-14.6 % High RDW CV 17.1 LAB L100.1820 35.1-43.9 fl High RDW SD 54.8 LAB L100.1900 150-450 K/mm3 Normal PLT 177 LAB L100.2000 6.2-12.0 fl Normal MPV 9.6 LAB L100.2100 47-70 % High NEUT% 88.9 LAB L100.2200 19-41 % Low LY% 8.3 LAB L100.2300 0-10 % Normal MONO% 2.4 LAB L100.2400 0-5 % Normal EO% 0.2 LAB L100.2500 0-1 % Normal BASO% 0.1 LAB L100.2550 0.0-0.9 % Normal IM GRAN % 0.100 Result Comment: IG% - Immature Granulocytes (promyelocytes, myelocytes and metamyelocytes) > 1% indicates that a LEFT SHIFT is Present. LAB L100.2620 2.0-7.7 X10 3/uL Normal Absolute Neut 7.1 LAB L100.2720 0.83-4.51 X10 3/ul Low Absolute Lymph 0.67 Performed By: #### L100.0100 #### [facility] [address] [place], [place], [id number] LACTIC ACID Collected: 01/14/2018 Status: F Source: MONTEVIDEO 8:00 PM [facility] REPOSITORY Order Comment: Yes/No query for Sepsis Lactate Rule Y TYPE CODE TESTS RESULT OUT OF RANGE REFERENCE UNITS LAB L503.6005 0.4-2.0 mmol/L Normal LACTIC ACID 1.0 Performed By: #### L503.6005 #### [facility] [place], [address] COMPREHENSIVE METABOLIC Collected: 01/14/2018 Status: F Source: [facility]VI [facility] 8:00 PM [facility] REPOSIT[facility] TYPE CODE TESTS RESULT OUT OF RANGE REFERENCE UNITS LAB L501.0100 74-106 mg/dL Normal GLU 106 Result Comment: Fasting Glucose result from 100 to 125 mg/dL suggests IMPAIRED HOMEOSTASIS per A.D.A. criteria. Please note revised GLUCOSE reference range effective 2017. LAB L501.1000 7-18 mg/dL High BUN 59 LAB L501.1100 0.55-1.02 mg/dL High alert CREAT,SERUM 8.72 Result Comment: Critical Result(s) Called at: 20:57:26 01/14/2018 by: Jayla phillips TO BRENNA The validity of the calculated GFR AND GFRAA in patients over 70 years has not been determined. Clinical correlation is essential. LAB L501.1110 >60 mL/min Low EST GFR 5 Result Comment: Non- GFR Calc LAB L501.1115 >60 mL/min Low EST GFR - AA 6 Result Comment: GFR Calc LAB L501.1255 ml/min Normal Estimated CRCL 5.77 LAB L501.1300 10-20 RATIO Low BUN/CRE 6.8 LAB L501.1500 6.4-8.2 g/dL Normal T PROT 7.0 LAB L501.1800 3.2-5.0 g/dL Low ALB 2.8 LAB L501.1950 2.2-4.2 g/dL Normal GLOB 4.2 LAB L501.2000 0.9-2.4 RATIO Low A/G 0.7 LAB L501.2200 8.5-10. mg/dL Normal 1 CA 9.1 LAB L501.4100 15-37 U/L Normal AST 22 LAB L501.4305 45-117 U/L Normal ALK P 81 LAB L501.4405 13-56 U/L Normal ALT 18 LAB L501.4600 0.20-1. mg/dL Normal 00 T BILI 0.40 LAB L501.5300 136-145 mmol/L Low NA 135 LAB L501.5600 3.5-5.1 mmol/L Normal K 4.8 LAB L501.5900 98-107 mmol/L Low CL 96 LAB L501.6100 21.0-32 mmol/L Normal .0 CO2 29.0 LAB L501.6200 5-15 Normal GAP 10 Performed By: #### L500.4050 #### [facility] [address] [place], [address] Observed: 01/14/2018 Status: F Source: VAISHNAVI INFLUENZA A+B (RAPID 8:00 PM [facility] REPOSITORY Order Date: 01/14/18 FLU A/B Rapid Negative test results should be confirmed by culture. Order Rapid Viral Culture for Influenzae A+B ([id number]) if clinically indicated. Influenza Ag, Direct Presumptive NEGATIVE for Influenza A/B Antigen (See Note) Performed By: #### M101.0101 #### [facility] [address] [place], [place], [address] D-DIMER QUANTITATIVE Collected: 01/14/2018 Status: F Source: VAISHNAVI (DVT/PE) 8:00 PM [facility] REPOSITORY TYPE CODE TESTS RESULT OUT OF RANGE REFERENCE UNITS LAB L300.8000 0.27-0.49 FEU/ug/m High alert D-DIMER 9.29 QUANT Result Comment: D-Dimer ELEVATED (>0.49): Additional studies and clinical assessments are indicated to conclude diagnosis of: Deep Vein Thrombosis (DVT) or Pulmonary Embolism (PE) RESULTS CALLED TO MICHELLE 01/15/18 0003 [place]. REPORT READ BACK BY SAME. Performed By: #### L300.8000 #### [facility] [address] [place], [place], [address] Observed: 01/14/2018 Status: F Source: VAISHNAVI CULTURE, BLOOD (WB) 8:00 PM [facility] REPOSITORY BC No growth in 5 days. Performed By: #### M200.1000 #### [facility] [address] [place], [address] CHEST 1 VIEW Observed: 01/14/2018 Status: F Source: VAISHNAVI (PORTABLE) 7:52 PM [facility] RE[facility]IT[facility] Imaging Services [address] [place] [address] Chest 1 View (Portable) MR#: [id number] Acct: [id number] Name: YUN NELSON Rep #: [id number] : 1960 F 57 From: Ernseto Murray MD PCP: Lawrence Fink DO Status: REG ER Study: Chest 1 View (Portable) Date of Exam: 01/14/18 Exam# [id number] Ordering Dr: Jorge Jimenez MD STUDY: X-RAY CHEST REASON FOR EXAM: Female, 57 years old. Copy TECHNIQUE: Frontal view of the chest COMPARISON: 10/17/2017. FINDINGS: There are persistent airspace opacities noted in the right mid to lower lung field. The previously seen left lung opacity has resolved. There are no pleural effusions. There is no pneumothorax. The heart is normal in size. The visualized osseous structures are within normal limits. RAD/Chest 1 View (Portable) IMPRESSION: Persisting airspace opacities in the right mid to lower lung field. Resolution of the previously seen left-sided opacities. Electronically Signed: Ernesto Murray, at 20:18 EST Tel , Service support , CC: Lawrence Fink DO; Jorge Jimenez MD Solar Maintenance Technician: Signed VAISHNAVI ABS GR + CBC Collected: 01/09/2018 Status: F Source: UPPER SANDUSKY 1:38 PM [facility] REPOSITORY TYPE CODE TESTS RESULT OUT OF REFERENCE UNITS RANGE LAB WWBC 3.70-11.00 k/uL [place] WBC 5.80 LAB WRBC 3.90-5.20 m/uL Low Vaishnavi RBC 3.65 LAB WHGB 11.5-15.5 g/dL Low [place] Hemoglobin 9.9 LAB WHCT 36.0-46.0 % Low Vaishnavi Hematocrit 33.1 LAB WMCV 80.0-100.0 fL Vaishnavi MCV 90.7 LAB WMCH 26.0-34.0 pg Vaishnavi MCH 27.1 LAB WMCHC 30.5-36.0 g/dL Low [place] MCHC 29.9 Result Comment: Result checked and verified LAB WRDW 11.5-15.0 % High [place] RDW 16.6 LAB WPLT 150-400 k/uL Vaishnavi 257 Platelet Cnt LAB WMPV 9.0-12.7 fL [place] MPV 9.6 Result Comment: Test performed at: [facility] [place], [address] [place] [address]. LAB ABGRAN 1.45-7.50 k/uL Absol Gran 4.52 Count PROGRESS Observed: 12/31/2017 Status: COMPLETED Source: UPPER [place]US[place] 2:[address] [facility] REPOSITORY HNO ID: [id number] Author: Eric Arteaga Service: (none) Author Type: Physician Type: Progress Notes Filed: 12/31/2017 3:03 PM Note Text: Diagnoses: Cervical cancer and RCC. HPI: Underwent a left sided laparoscopic nephrectomy. The pathology demonstrated a T3 (7 cm) clear cell, renal cell carcinoma. Additionally, at the same time patient underwent a laparoscopic, left pelvic, lymph node dissection and right, periaortic, lymph node biopsy with lysis of adhesions. It appeared that the possible pelvic adenopathy visualized on a PET scan may have been due to a left sided hydrosalpinx and possibly enlarged left ovary. A one enlarged retroperitoneal lymph node was visualized, it was removed and it was found not to contain metastatic cancer. Previous therapy: 1. 04/29/2010 - multiple cervical and vaginal biopsies. 2. 08/17/2009 - Laparoscopic left pelvic lymph node dissection and right periaortic lymph node biopsies, lysis of adhesions. one enlarged retroperitoneal lymph node was visualized, it was removed and it was found not to contain metastatic cancer 3. 08/17/2009 - Laparoscopic left radical nephrectomy. The pathology demonstrated a T3 (7 cm) clear cell, renal cell carcinoma. (Dr Ac) 4. Concurrent Cisplatin/RT 09/13/09 - 10/15/09. Total RT dose 4500 cGy in 25 fx. 5. Shaheen template for brachytherapy with Dr. Vasquez, total dose 2250cGy in 5 fractions 10/27/09-10/29/09. 6. 04/29/2010 - Multiple cervical and vaginal biopsies, negative for recurrent disease 7. 06/10/2010 - Exploratory laparotomy, lysis of adhesions, bilateral pelvic lymphadenectomy. This case was done in conjunction with Dr. 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 8. 06/22/2011 - Exam under anesthesia with cystoscopy. This case was done in conjunction with Dr. Ernesto Burton, who performed exam under anesthesia, biopsies, and curettage of the right pubic ramus with irrigation. 9. 09/07/2011 - Total pelvic exenteration with ileal conduit (Dr. Strong), creation of neovagina (Dr. Polanco) and right pubic ramus biopsies (Dr. Burton). 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 All lymph nodes negative. 10. 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 S/P SBRT to RML (50 Gy in 5 fx from 01/18/2015-01/27/2015. 11. Palliative radiation to the trachea and right lung 10/09/16 to 10/30/16. EGD 11/2013: The examined esophagus was normal. The entire examined stomach was normal. Biopsies were taken with a cold forceps for histology. Estimated blood loss was minimal. The examined duodenum was normal. Biopsies were taken with a cold forceps for evaluation of celiac disease. Estimated blood loss was minimal. Impression: - Normal esophagus. - Normal stomach. Biopsied. - Normal examined duodenum. Biopsied. Colonoscopy 11/2013: The colon (entire examined portion) appeared normal. Impression: - The entire examined colon is normal. Recent CT Noncontrast CT scan of the chest demonstrating interval enlargement of a right middle lobe medial irregularly marginated soft tissue mass. There is subpleural fat deposition at the left lung base with 2 small nodules, the more medial slightly increased in size. There are also 2 diaphragmatic pleural-based nodules which may be stable. She had been undergoing dialysis for about a year. She underwent pelvic exoneration. She developed obstructive uropathy leading to end-stage renal disease. I received a brief note from her dial brusher indicating that the patient has been receiving maximum doses of Procrit and she has been running hemoglobin in the 's. 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 S/P SBRT to RML (50 Gy in 5 fx from 01/18/2015-01/27/2015. Previous therapy: As above. 1) Radiation to trachea and right lung. 2) Taxol. 3) Neratinib. Didn't tolerate--diarrhea. Current therapy: 1) Taxol. Presents for ongoing oncologic management. Interim history: No complaints today. Cough tolerable with Hycodan. Occasional sputum production. No hemoptysis. Not short of breath with normal walking. No chest pain. No symptoms of neuropathy. PMH, medications and allergies personally reviewed by me today. Any changes documented in appropriate section. ROS: Constitutional: Denies episodes of night sweats. Neuro: Denies POND, vertigo and imbalance. HEENT: No recent change in voice, vision or hearing. CVS: Denies exertional chest pain, PND, orthopnea and LE edema. GI: Denies reflux and abdominal pain. No symptoms of stomatitis. : Still gets small amount of urine. Endo: No hot flashes. Derm: No rash. Heme: No unusual bleeding or bruising. Psych: Normal mood. PHYSICAL EXAM: Vitals: Blood pressure 140/63, pulse 100, temperature 37.1 ?C (98.7 ?F), weight 72.1 kg (159 lb). Well-appearing and in no acute distress. EYES: Sclerae are anicteric bilaterally. NECK: Supple. LYMPHATIC: There is no palpable cervical, supraclavicular adenopathy. RESPIRATORY: There is better air entry in the right upper and lower lung field. Still has diminished air entry in the right mid lung field. No wheezes appreciated today. There is resonance to percussion at the bases bilaterally. CARDIOVASCULAR: Rhythm is regular. ABDOMEN: The abdomen is nondistended. No tenderness. Extremities: Free of edema. SKIN: No jaundice or rash. No petechiae. 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 No focal motor weakness. 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 -ER/KS negative tumor. -She tolerated single agent Taxol symptomatically very well in the past but required RBC transfusional support. 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 -Now again tolerating Taxol well. -I personally reviewed CT images and again with patient. SD. Awaiting radiology read. -Previously discussed advanced directives and healthcare power of contracts attorney. Plan: -Continue Taxol. -Monitor CBC for possible transfusion every week. -Hycodan for symptomatic control of cough. Eric Arteaga DO CNOVSP Observed: 12/31/2017 Status: COMPLETED Source: [place] 2:[address] [facility] REPOSITORY Visit (SP) Office ([place]) YUN NELSON ([id number]) 1960 F Date Time Provider Department 12/31/17 2:30 PM ERIC ARTEAGA During your visit today, we recorded the following information about you: Temperature Pulse Blood pressure Weight 98.7 degrees 100/minute 140/63 72.1 kg Tania Newman LPN, JESSICA 12/31/2017 2:57 PM Signed Est pt., discuss recent lab results, tx on Sunday Tania Acharya JESSICA Newman Eric Arteaga, DO 12/31/2017 3:03 PM Signed Diagnoses: Cervical cancer and RCC. HPI: Underwent a left sided laparoscopic nephrectomy. The pathology demonstrated a T3 (7 cm) clear cell, renal cell carcinoma. Additionally, at the same time patient underwent a laparoscopic, left pelvic, lymph node dissection and right, periaortic, lymph node biopsy with lysis of adhesions. It appeared that the possible pelvic adenopathy visualized on a PET scan may have been due to a left sided hydrosalpinx and possibly enlarged left ovary. A one enlarged retroperitoneal lymph node was visualized, it was removed and it was found not to contain metastatic cancer. Previous therapy: 1. 04/29/2010 - multiple cervical and vaginal biopsies. 2. 08/17/2009 - Laparoscopic left pelvic lymph node dissection and right periaortic lymph node biopsies, lysis of adhesions. one enlarged retroperitoneal lymph node was visualized, it was removed and it was found not to contain metastatic cancer 3. 08/17/2009 - Laparoscopic left radical nephrectomy. The pathology demonstrated a T3 (7 cm) clear cell, renal cell carcinoma. (Dr Ac) 4. Concurrent Cisplatin/RT 09/13/09 - 10/15/09. Total RT dose 4500 cGy in 25 fx. 5. Shaheen template for brachytherapy with Dr. Vasquez, total dose 2250cGy in 5 fractions 10/27/09-10/29/09. 6. 04/29/2010 - Multiple cervical and vaginal biopsies, negative for recurrent disease 7. 06/10/2010 - Exploratory laparotomy, lysis of adhesions, bilateral pelvic lymphadenectomy. This case was done in conjunction with Dr. 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 8. 06/22/2011 - Exam under anesthesia with cystoscopy. This case was done in conjunction with Dr. Ernesto Burton, who performed exam under anesthesia, biopsies, and curettage of the right pubic ramus with irrigation. 9. 09/07/2011 - Total pelvic exenteration with ileal conduit (Dr. Strong), creation of neovagina (Dr. Polacno) and right pubic ramus biopsies (Dr. Burton). 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 All lymph nodes negative. 10. 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 S/P SBRT to RML (50 Gy in 5 fx from 01/18/2015-01/27/2015. 11. Palliative radiation to the trachea and right lung 10/09/16 to 10/30/16. EGD 11/2013: The examined esophagus was normal. The entire examined stomach was normal. Biopsies were taken with a cold forceps for histology. Estimated blood loss was minimal. The examined duodenum was normal. Biopsies were taken with a cold forceps for evaluation of celiac disease. Estimated blood loss was minimal. Impression: - Normal esophagus. - Normal stomach. Biopsied. - Normal examined duodenum. Biopsied. Colonoscopy 11/2013: The colon (entire examined portion) appeared normal. Impression: - The entire examined colon is normal. Recent CT Noncontrast CT scan of the chest demonstrating interval enlargement of a right middle lobe medial irregularly marginated soft tissue mass. There is subpleural fat deposition at the left lung base with 2 small nodules, the more medial slightly increased in size. There are also 2 diaphragmatic pleural-based nodules which may be stable. She had been undergoing dialysis for about a year. She underwent pelvic exoneration. She developed obstructive uropathy leading to end-stage renal disease. I received a brief note from her dial brusher indicating that the patient has been receiving maximum doses of Procrit and she has been running hemoglobin in the 's. 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 S/P SBRT to RML (50 Gy in 5 fx from 01/18/2015-01/27/2015. Previous therapy: As above. 1) Radiation to trachea and right lung. 2) Taxol. 3) Neratinib. Didn't tolerate--diarrhea. Current therapy: 1) Taxol. Presents for ongoing oncologic management. Interim history: No complaints today. Cough tolerable with Hycodan. Occasional sputum production. No hemoptysis. Not short of breath with normal walking. No chest pain. No symptoms of neuropathy. PMH, medications and allergies personally reviewed by me today. Any changes documented in appropriate section. ROS: Constitutional: Denies episodes of night sweats. Neuro: Denies POND, vertigo and imbalance. HEENT: No recent change in voice, vision or hearing. CVS: Denies exertional chest pain, PND, orthopnea and LE edema. GI: Denies reflux and abdominal pain. No symptoms of stomatitis. : Still gets small amount of urine. Endo: No hot flashes. Derm: No rash. Heme: No unusual bleeding or bruising. Psych: Normal mood. PHYSICAL EXAM: Vitals: Blood pressure 140/63, pulse 100, temperature 37.1 ?C (98.7 ?F), weight 72.1 kg (159 lb). Well-appearing and in no acute distress. EYES: Sclerae are anicteric bilaterally. NECK: Supple. LYMPHATIC: There is no palpable cervical, supraclavicular adenopathy. RESPIRATORY: There is better air entry in the right upper and lower lung field. Still has diminished air entry in the right mid lung field. No wheezes appreciated today. There is resonance to percussion at the bases bilaterally. CARDIOVASCULAR: Rhythm is regular. ABDOMEN: The abdomen is nondistended. No tenderness. Extremities: Free of edema. SKIN: No jaundice or rash. No petechiae. 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 No focal motor weakness. 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 -ER/KS negative tumor. -She tolerated single agent Taxol symptomatically very well in the past but required RBC transfusional support. 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 -Now again tolerating Taxol well. -I personally reviewed CT images and again with patient. SD. Awaiting radiology read. -Previously discussed advanced directives and healthcare power of contracts attorney. Plan: -Continue Taxol. -Monitor CBC for possible transfusion every week. -Hycodan for symptomatic control of cough. 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] Malignant neoplasm metastatic to right lung (HCC) [C78.01] Prescriptions as of 12/31/2017 Sig: HYDROCODONE-HOMATROPINE 5 MG-* Take 5 mL by mouth four times* ASCORBIC ACID (VITAMIN C) 500* Take 500 mg by mouth once lesia* ALBUTEROL SULFATE 2.5 MG/3 ML* Use 3 mL via nebulizer every * DIPHENOXYLATE-ATROPINE 2.5 MG* Take 1-2 tablets by mouth pipo* ALBUTEROL SULFATE HFA 90 MCG/* Inhale 2 Puffs as instructed * ONDANSETRON HCL 8 MG TABLET Take 1 tablet by mouth every * LISINOPRIL 20 MG TABLET Take 1 tablet by mouth twice * ERGOCALCIFEROL (VITAMIN D2) 5* Take 1 capsule by mouth once * CLOBETASOL 0.05 % TOPICAL CRE* Apply 1 application to affect* FOLIC ACID 1 MG TABLET Take 1 tablet by mouth once d* STOOL SOFTENER 100 MG CAPSULE TAKE 1 CAPSULE TWICE A DAY AMLODIPINE 10 MG TABLET Take 10 mg by mouth once adolfo* FAMOTIDINE 20 MG TABLET Take 1 tablet by mouth twice * CALCIUM ACETATE 667 MG TABLET Take 667 mg by mouth three ti* VITAMIN B COMPLEX AND VITAMIN* Take 1 capsule by mouth once * ACETAMINOPHEN 325 MG TABLET Take 650 mg by mouth every 6 * [id number]* Take 10 mL by mouth every 4 h* NERATINIB 40 MG TABLET Take 6 tablets by mouth once * Patient not taking: Reported on 12/03/2017 Problem List As Of Date 12/31/2017 Noted Resolved Obesity [E66.9] INVALID FOR*09/13/2010 Pallor [R23.1] INVALID FOR*07/10/2009 LBP (low back pain) [M54.5] INVALID FOR*10/25/2012 Vomiting [R11.10] INVALID FOR*09/13/2010 Anemia due to blood loss [D50.0] INVALID FOR*12/27/2009 Dyspnea [R06.00] INVALID FOR*08/26/2009 Chest Pain [R07.9] INVALID FOR*08/26/2009 Cervix cancer [C53.9] INVALID FOR*10/25/2012 More... 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 Radiation cystitis [N30.40] INVALID FOR*10/25/2012 S/P ileal conduit [Z93.6] INVALID FOR*10/25/2012 SUMMARY [V999.95] INVALID FOR* Priority: A More... Progressively worsening kidney function [N18.9]INVALID FOR*04/03/2017 Priority: B More... Hx of cervical cancer [Z85.41] INVALID FOR* Priority: E More... H/o Renal cell cancer [C64.9] INVALID FOR* Priority: F More... DVT prophylaxis [CSM8973] INVALID FOR*11/02/2012 Priority: L More... DISPOSITION AND FOLLOW-UP [V999.01] INVALID FOR*11/02/2012 Priority: M More... Iron deficiency anemia [D50.9] INVALID FOR* Priority: C More... Euthyroid sick syndrome [E07.81] INVALID FOR* Priority: G More... Osteomyelitis [M86.9] INVALID FOR* Priority: D More... Renal failure [N19] INVALID FOR*04/03/2017 End stage renal disease (HCC) [N18.6] INVALID FOR*04/03/2017 Anemia [D64.9] Primary lung cancer with metastasis from lung t*INVALID FOR*09/22/2016 Right middle lobe pneumonia [J18.1] INVALID FOR* Chronic kidney disease, stage V (HCC) [N18.5] More... Cancer of trachea, bronchus, and lung (HCC) [C3*INVALID FOR* More... 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] INVALID FOR* Dialysis patient (HCC) [Z99.2] INVALID FOR* Essential hypertension with goal blood pressure*INVALID FOR* Primary lung cancer with metastasis from lung t*INVALID FOR* Diastolic dysfunction [I51.9] INVALID FOR* Mitral valve insufficiency [I34.0] INVALID FOR* Rash and nonspecific skin eruption [R21] INVALID FOR* Elevated TSH [R79.89] INVALID FOR* Dyspepsia [R10.13] INVALID FOR* ESRD on hemodialysis (HCC) [N18.6, Z99.2] INVALID FOR*04/03/2017 Anemia, chronic renal failure, stage 5 (HCC) [N*INVALID FOR* Acute on chronic diastolic congestive heart gisell*INVALID FOR* ESRD (end stage renal disease) on dialysis (HCC*INVALID FOR* Snoring [R06.83] INVALID FOR* PND (paroxysmal nocturnal dyspnea) [R06.00] INVALID FOR* Fatigue [R53.83] INVALID FOR* Visit Notes: >> Tania Acharya (Solar Maintenance Technician) Paty JESSICA Mon Dec 31, 2017 2:34 PM Status: Signed Est pt., discuss recent lab results, tx on Sunday Tania NewmanJESSICA Encounter Status:Closed by ERIC ARTEAGA DO on 12/31/17 VA[facility]VI ABS GR + CBC Collected: 12/31/2017 Status: F Source: [place] 2:[address] [facility] REPOSITORY TYPE CODE TESTS RESULT OUT OF REFERENCE UNITS RANGE LAB WWBC 3.70-11.00 k/uL [place] WBC 5.61 LAB WRBC 3.90-5.20 m/uL Low [place] RBC 3.46 LAB WHGB 11.5-15.5 g/dL Low [place] Hemoglobin 9.6 LAB WHCT 36.0-46.0 % Low [place] Hematocrit 32.2 LAB WMCV 80.0-100.0 fL [place] MCV 93.1 LAB WMCH 26.0-34.0 pg [place] MCH 27.7 LAB WMCHC 30.5-36.0 g/dL Low [place] MCHC 29.8 LAB WRDW 11.5-15.0 % [place] High RDW 18.5 LAB WPLT 150-400 k/uL [place] Platelet Cnt 215 LAB WMPV 9.0-12.7 fL [place] MPV 9.1 Result Comment: Test performed at: [facility], [address] [place] [address] Rd[address] [place] [address]. LAB ABGRAN 1.45-7.50 k/uL Absol Gran 4.45 Count HEPATIC FUNCTN PANEL Collected: 12/31/2017 Status: F Source: [place] 2:[address] [facility] REPOSITORY TYPE CODE TESTS RESULT OUT OF REFERENCE UNITS RANGE LAB ALB 3.9-4.9 g/dL Low Albumin 3.8 LAB TBIL 0.2-1.3 mg/dL Bilirubin, Total 0.2 LAB CBIL <0.2 mg/dL Bilirubin,Conjuga <0.2 jp LAB ALKP 34-123 U/L Alkaline Phosphatase 82 LAB AST 13-35 U/L AST 13 LAB ALT 7-38 U/L Low ALT 5 LAB TP 6.3-8.0 g/dL Protein, Total 6.8 PROGRESS Observed: 12/28/2017 Status: COMPLETED Source: [place] 12:[address] [facility] REPOSITORY HNO ID: [id number] Author: Lakshmi Machado Ct Service: (none) Author Type: (none) Type: Progress Notes Filed: 12/28/2017 12:22 PM Note Text: Radiology Service Progress Note PATIENT NAME: Yun Nelson DATE OF SERVICE: December 28, 2017 TIME: 12:20 PM PATIENT IDENTITY VERIFICATION COMPLETED USING TWO (2) METHODS: Patient confirmed name verbally and Date of . PATIENT GENDER DATA: Female. status: : No status: NO. PATIENT RELEVANT IMPLANT DATA REVIEWED: Not Applicable CONTRAST INDUCED NEPHROPATHY RISK FACTORS: Not applicable CREATININE: Creatinine Date Value Ref Range Status 08/06/2017 7.30 (H) 0.58 - 0.96 mg/dL Final 09/18/2016 8.62 (H) 0.58 - 0.96 mg/dL Final 08/04/2015 5.71 (H) 0.70 - 1.40 mg/dL Final Creatinine, Whole Blood (iSTAT) Date Value Ref Range Status 03/28/2017 6.10 (H) 0.70 - 1.40 mg/dL Final 02/28/2017 6.00 (H) 0.70 - 1.40 mg/dL Final Comment: Result rechecked. 02/16/2017 5.70 (H) 0.70 - 1.40 mg/dL Final eGFR-All Other Races Date Value Ref Range Status 08/06/2017 6 . Final Comment: eGFR (Estimated GFR) Units of measure: mL/min/1.73 meters squared eGFR is derived from the reexpressed MDRD Study equation using the following parameters: serum creatinine, age, gender and race. The creatinine assay has been calibrated to be traceable to IDMS. An eGFR <60 mL/min/1.73m2 for >3 months is consistent with chronic kidney disease. Refer to KDOQI guidelines for clinical interpretation. In patients with unstable renal function, e.g. those with acute kidney injury, the eGFR may not accurately reflect actual GFR. eGFR- Date Value Ref Range Status 08/06/2017 7 Final P.O.C.T. RESULTS: pt on dialysis,last dialysis 12/27/17, next dialysis 12/29/17 December 28, 2017 RADIOLOGIST NOTIFIED?: No ALLERGIES: Reviewed and unchanged CONTRAST ALLERGY: YES n/a. PERIPHERAL IV ACCESS: Ambulatory: IV type: A peripheral IV was started in the Left antecubital site with a Angio cath: 22 gauge., Site assessment: Clean,Dry and Intact, Site disposition Discontinued RADIOLOGY DEPARTMENT: CT; Exam(s) Completed: Chest SIGNED BY: Lakshmi Machado Ct December 28, 2017 12:[address] CHEST W IVCON Observed: 12/28/2017 Status: F Source: [place] 11:[address] [facility] REPOSITORY * * *Final Report* * * DATE OF EXAM: Dec 28 2017 11:09AM [facility] 0539 - CT CHEST W IVCON / PROCEDURE REASON: multiple diagnoses * * * * Physician Interpretation * * * * EXAMINATION: CHEST CT WITH CONTRAST CLINICAL HISTORY: Malignant neoplasm of endocervix (HCC) Malignant neoplasm metastatic to right lung (HCC) Technique: Spiral CT acquisition of the chest from the thoracic inlet to the upper abdomen following IV contrast. MQ: [id number] Contrast: 50 mL Omnipaque [address] Dose-Length Product: 298 mGy*cm CT Dose Reduction Employed: Automated exposure control(AEC) and iterative recon Comparison: Type of study and date/time RESULT: Limitations: None. Lines, tubes, and devices: None. Lung parenchyma and pleura: There is again opacity in the area of the right middle lobe which is most likely consolidation due to right middle lobe bronchus obstruction and appears stable. There is again right lower perihilar consolidation in the lower lobe, slightly more extensive than previously. Small left lung nodules generally appear slightly more prominent than previously. Anterior left upper lobe nodule on image 51 measures 7 mm, versus 6 mm previously. Left upper lobe nodule on image 81 measures 4 mm versus 3 mm previously. Left upper lobe nodule on image 37 measures 4 mm versus 3 mm previously. There is a new 7 mm left lower lobe nodule on image 114. There are scattered small tree-in-bud nodules in the left lower lobe which are more likely inflammatory. There are scattered tiny right lower lobe nodules which appear slightly more prominent at 4 mm now versus 3 mm previously. Fewer right lower lobe nodules are evident now because of increased right perihilar lower lobe consolidation. There is again a focal 1 cm area of left posterior lung base pleural thickening on image 141, unchanged, which may be neoplastic but is unchanged compared with 03/26/2017 CT chest. No obvious central pulmonary embolus is noted. Small right pleural effusion is again noted. No left pleural effusion. Thoracic inlet, heart, and mediastinum: New 3.7 cm right lower perihilar mass on image 102 is presumably neoplastic lymphadenopathy. There is again most likely mild subcarinal mediastinal lymphadenopathy. No pericardial effusion. Bones and soft tissues: Osteolytic and sclerotic change involving the anterior end of the right fourth rib is unchanged compared with 03/26/2017 CT chest and is probably metastasis. No other additional bony metastases are noted. Chest wall is unremarkable. Upper abdomen: Gas containing gallstones again noted. Small right hydronephrotic kidney again noted. Splenomegaly again noted. IMPRESSION: Slight increase in pulmonary nodules. New right lower perihilar lymphadenopathy or mass. Solar Maintenance Technician: [facility] Transcribe Date/Time: Jan 01 2018 8:14A Dictated by : JERSON ARENAS MD This examination was interpreted and the report reviewed and electronically signed by: JERSON ARENAS MD on Jan 01 2018 8:40AM EST [id number] [facility] ABS GR + CBC Collected: 12/19/2017 Status: F Source: [place] 1:28 PM [facility] REPOSITORY TYPE CODE TESTS RESULT OUT OF REFERENCE UNITS RANGE LAB WWBC 3.70-11.00 k/uL [place] WBC 3.73 LAB WRBC 3.90-5.20 m/uL Low [place] RBC 3.28 LAB WHGB 11.5-15.5 g/dL Low [place] Hemoglobin 9.2 LAB WHCT 36.0-46.0 % Low [place] Hematocrit 30.7 LAB WMCV 80.0-100.0 fL [place] MCV 93.6 LAB WMCH 26.0-34.0 pg [place] MCH 28.0 LAB WMCHC 30.5-36.0 g/dL Low [place] MCHC 30.0 LAB WRDW 11.5-15.0 % [place] High RDW 18.3 LAB WPLT 150-400 k/uL [place] Platelet Cnt 215 LAB WMPV 9.0-12.7 fL [place] MPV 9.7 Result Comment: Test performed at: [address] [place] [address]. LAB ABGRAN 1.45-7.50 k/uL Absol 2.81 Gran Count LAB ABSNUC <0.01 k/uL Absolute nRBC Result checked and verified MONTEVIDEO ABS GR + CBC Collected: 12/12/2017 Status: F Source: [place] 1:[address] [facility] REPOSITORY TYPE CODE TESTS RESULT OUT OF REFERENCE UNITS RANGE LAB WWBC 3.70-11.00 k/uL [place] WBC 5.69 LAB WRBC 3.90-5.20 m/uL Low [place] RBC 3.47 LAB WHGB 11.5-15.5 g/dL Low [place] Hemoglobin 9.6 LAB WHCT 36.0-46.0 % Low [place] Hematocrit 31.9 LAB WMCV 80.0-100.0 fL [place] MCV 91.9 LAB WMCH 26.0-34.0 pg [place] MCH 27.7 LAB WMCHC 30.5-36.0 g/dL Low [place] MCHC 30.1 LAB WRDW 11.5-15.0 % [place] High RDW 17.4 LAB WPLT 150-400 k/uL [place] Platelet Cnt 249 LAB WMPV 9.0-12.7 fL Low [place] MPV 8.8 Result Comment: Test performed at: [address] [place] [address]. LAB ABGRAN 1.45-7.50 k/uL Absol Gran 4.50 Count PROGRESS Observed: 12/03/2017 Status: COMPLETED Source: [place] 10:[address] [facility] REPOSITORY HNO ID: [id number] Author: Eric Arteaga Service: (none) Author Type: Physician Type: Progress Notes Filed: 12/03/2017 11:09 AM Note Text: Diagnoses: Cervical cancer and RCC. HPI: Underwent a left sided laparoscopic nephrectomy. The pathology demonstrated a T3 (7 cm) clear cell, renal cell carcinoma. Additionally, at the same time patient underwent a laparoscopic, left pelvic, lymph node dissection and right, periaortic, lymph node biopsy with lysis of adhesions. It appeared that the possible pelvic adenopathy visualized on a PET scan may have been due to a left sided hydrosalpinx and possibly enlarged left ovary. A one enlarged retroperitoneal lymph node was visualized, it was removed and it was found not to contain metastatic cancer. Previous therapy: 1. 04/29/2010 - multiple cervical and vaginal biopsies. 2. 08/17/2009 - Laparoscopic left pelvic lymph node dissection and right periaortic lymph node biopsies, lysis of adhesions. one enlarged retroperitoneal lymph node was visualized, it was removed and it was found not to contain metastatic cancer 3. 08/17/2009 - Laparoscopic left radical nephrectomy. The pathology demonstrated a T3 (7 cm) clear cell, renal cell carcinoma. (Dr Ac) 4. Concurrent Cisplatin/RT 09/13/09 - 10/15/09. Total RT dose 4500 cGy in 25 fx. 5. Shaheen template for brachytherapy with Dr. Vasquez, total dose 2250cGy in 5 fractions 10/27/09-10/29/09. 6. 04/29/2010 - Multiple cervical and vaginal biopsies, negative for recurrent disease 7. 06/10/2010 - Exploratory laparotomy, lysis of adhesions, bilateral pelvic lymphadenectomy. This case was done in conjunction with Dr. 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 8. 06/22/2011 - Exam under anesthesia with cystoscopy. This case was done in conjunction with Dr. Ernesto Burton, who performed exam under anesthesia, biopsies, and curettage of the right pubic ramus with irrigation. 9. 09/07/2011 - Total pelvic exenteration with ileal conduit (Dr. Strong), creation of neovagina (Dr. Polanco) and right pubic ramus biopsies (Dr. Burton). 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 All lymph nodes negative. 10. 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 S/P SBRT to RML (50 Gy in 5 fx from 01/18/2015-01/27/2015. 11. Palliative radiation to the trachea and right lung 10/09/16 to 10/30/16. EGD 11/2013: The examined esophagus was normal. The entire examined stomach was normal. Biopsies were taken with a cold forceps for histology. Estimated blood loss was minimal. The examined duodenum was normal. Biopsies were taken with a cold forceps for evaluation of celiac disease. Estimated blood loss was minimal. Impression: - Normal esophagus. - Normal stomach. Biopsied. - Normal examined duodenum. Biopsied. Colonoscopy 11/2013: The colon (entire examined portion) appeared normal. Impression: - The entire examined colon is normal. Recent CT Noncontrast CT scan of the chest demonstrating interval enlargement of a right middle lobe medial irregularly marginated soft tissue mass. There is subpleural fat deposition at the left lung base with 2 small nodules, the more medial slightly increased in size. There are also 2 diaphragmatic pleural-based nodules which may be stable. She had been undergoing dialysis for about a year. She underwent pelvic exoneration. She developed obstructive uropathy leading to end-stage renal disease. I received a brief note from her dial brusher indicating that the patient has been receiving maximum doses of Procrit and she has been running hemoglobin in the 9's. 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 S/P SBRT to RML (50 Gy in 5 fx from 01/18/2015-01/27/2015. Previous therapy: As above. 1) Radiation to trachea and right lung. 2) Taxol. 3) Neratinib. Didn't tolerate--diarrhea. Current therapy: 1) Taxol. Presents for ongoing oncologic management. Interim history: She has no complaints today. Hycodan is helping her get more sputum up then as a consequence she's been coughing less. She's not had hemoptysis. No episode of fever. Chronic shortness of breath with exertion is unchanged. No chest pain. No other musculoskeletal pain. Appetite is still fair. No symptoms of neuropathy. PMH, medications and allergies personally reviewed by me today. Any changes documented in appropriate section. ROS: Constitutional: Denies episodes of night sweats. Neuro: Denies POND, vertigo and imbalance. HEENT: No recent change in voice, vision or hearing. CVS: Denies exertional chest pain, PND, orthopnea and LE edema. GI: Denies reflux and abdominal pain. No symptoms of stomatitis. : Still gets small amount of urine. Endo: No hot flashes. Derm: No rash. Heme: No unusual bleeding or bruising. Psych: Normal mood. PHYSICAL EXAM: Vitals: Blood pressure 138/58, pulse 102, temperature 36.7 ?C (98 ?F), weight 74.4 kg (164 lb). Well-appearing and in no acute distress. EYES: Sclerae are anicteric bilaterally. NECK: Supple. LYMPHATIC: There is no palpable cervical, supraclavicular adenopathy. RESPIRATORY: There is better air entry in the right upper and lower lung field. Still has diminished air entry in the right mid lung field. No wheezes appreciated today. There is resonance to percussion at the bases bilaterally. CARDIOVASCULAR: Rhythm is regular. ABDOMEN: The abdomen is nondistended. No tenderness. Extremities: Free of edema. SKIN: No jaundice or rash. No petechiae. 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 No focal motor weakness. 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 -ER/KS negative tumor. -She tolerated single agent Taxol symptomatically very well in the past but required RBC transfusional support. 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 -Now again tolerating Taxol well. -Previously discussed advanced directives and healthcare power of contracts attorney. Plan: -Continue Taxol. -Monitor CBC for possible transfusion every week. -Rx for Hycodan for further symptomatic control of cough. Eric Arteaga DO HEPATIC FUNCTN PANEL Collected: 12/03/2017 Status: F Source: [place] 10:[address] [facility] REPOSITORY TYPE CODE TESTS RESULT OUT OF REFERENCE UNITS RANGE LAB ALB 3.9-4.9 g/dL Low Albumin 3.7 LAB TBIL 0.2-1.3 mg/dL Bilirubin, Total 0.3 LAB CBIL <0.2 mg/dL Bilirubin,Conjuga <0.2 jp LAB ALKP 34-123 U/L Alkaline Phosphatase 75 LAB AST 13-35 U/L AST 20 LAB ALT 7-38 U/L ALT 7 LAB TP 6.3-8.0 g/dL Protein, Total 7.0 Performed By: #### HFP #### [facility] [address] [place] [address] [place] ABS GR + CBC Collected: 12/03/2017 Status: F Source: [place] 10:[address] [facility] REPOSITORY TYPE CODE TESTS RESULT OUT OF REFERENCE UNITS RANGE LAB WWBC 3.70-11.00 k/uL [place] WBC 4.52 LAB WRBC 3.90-5.20 m/uL Low [place] RBC 3.47 LAB WHGB 11.5-15.5 g/dL Low [place] Hemoglobin 10.0 LAB WHCT 36.0-46.0 % Low [place] Hematocrit 32.3 LAB WMCV 80.0-100.0 fL [place] MCV 93.1 LAB WMCH 26.0-34.0 pg [place] MCH 28.8 LAB WMCHC 30.5-36.0 g/dL [place] MCHC 31.0 LAB WRDW 11.5-15.0 % [place] High RDW 19.8 LAB WPLT 150-400 k/uL [place] Platelet Cnt 206 LAB WMPV 9.0-12.7 fL [place] MPV 9.3 Result Comment: Test performed at: [facility], [address] [place] [address] Rd[address] [place] [address]. LAB ABGRAN 1.45-7.50 k/uL Absol Gran 3.24 Count CNOVSP Observed: 12/03/2017 Status: COMPLETED Source: [place] 10:30 [facility] REPOSITORY Visit (SP) Office ([place]) JIMENAYUN Jenny ([id number]) 1960 F Date Time Provider Department 12/03/17 10:30 AM ERIC ARTEAGA During your visit today, we recorded the following information about you: Temperature Pulse Blood pressure Weight 98 degrees 102/minute 138/58 74.4 kg Tania Newman LPN, JESSICA 12/03/2017 10:58 AM Signed Est pt, discuss recent lab results, tx Sunday JESSICA Jovel, 12/03/2017 11:09 AM Signed Diagnoses: Cervical cancer and RCC. HPI: Underwent a left sided laparoscopic nephrectomy. The pathology demonstrated a T3 (7 cm) clear cell, renal cell carcinoma. Additionally, at the same time patient underwent a laparoscopic, left pelvic, lymph node dissection and right, periaortic, lymph node biopsy with lysis of adhesions. It appeared that the possible pelvic adenopathy visualized on a PET scan may have been due to a left sided hydrosalpinx and possibly enlarged left ovary. A one enlarged retroperitoneal lymph node was visualized, it was removed and it was found not to contain metastatic cancer. Previous therapy: 1. 04/29/2010 - multiple cervical and vaginal biopsies. 2. 08/17/2009 - Laparoscopic left pelvic lymph node dissection and right periaortic lymph node biopsies, lysis of adhesions. one enlarged retroperitoneal lymph node was visualized, it was removed and it was found not to contain metastatic cancer 3. 08/17/2009 - Laparoscopic left radical nephrectomy. The pathology demonstrated a T3 (7 cm) clear cell, renal cell carcinoma. (Dr Ac) 4. Concurrent Cisplatin/RT 09/13/09 - 10/15/09. Total RT dose 4500 cGy in 25 fx. 5. Shaheen template for brachytherapy with Dr. Vasquez, total dose 2250cGy in 5 fractions 10/27/09-10/29/09. 6. 04/29/2010 - Multiple cervical and vaginal biopsies, negative for recurrent disease 7. 06/10/2010 - Exploratory laparotomy, lysis of adhesions, bilateral pelvic lymphadenectomy. This case was done in conjunction with Dr. 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 8. 06/22/2011 - Exam under anesthesia with cystoscopy. This case was done in conjunction with Dr. Ernesto Burton, who performed exam under anesthesia, biopsies, and curettage of the right pubic ramus with irrigation. 9. 09/07/2011 - Total pelvic exenteration with ileal conduit (Dr. Strong), creation of neovagina (Dr. Polanco) and right pubic ramus biopsies (Dr. Burton). 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 All lymph nodes negative. 10. 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 S/P SBRT to RML (50 Gy in 5 fx from 01/18/2015-01/27/2015. 11. Palliative radiation to the trachea and right lung 10/09/16 to 10/30/16. EGD 11/2013: The examined esophagus was normal. The entire examined stomach was normal. Biopsies were taken with a cold forceps for histology. Estimated blood loss was minimal. The examined duodenum was normal. Biopsies were taken with a cold forceps for evaluation of celiac disease. Estimated blood loss was minimal. Impression: - Normal esophagus. - Normal stomach. Biopsied. - Normal examined duodenum. Biopsied. Colonoscopy 11/2013: The colon (entire examined portion) appeared normal. Impression: - The entire examined colon is normal. Recent CT Noncontrast CT scan of the chest demonstrating interval enlargement of a right middle lobe medial irregularly marginated soft tissue mass. There is subpleural fat deposition at the left lung base with 2 small nodules, the more medial slightly increased in size. There are also 2 diaphragmatic pleural-based nodules which may be stable. She had been undergoing dialysis for about a year. She underwent pelvic exoneration. She developed obstructive uropathy leading to end-stage renal disease. I received a brief note from her dial brusher indicating that the patient has been receiving maximum doses of Procrit and she has been running hemoglobin in the 's. 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 S/P SBRT to RML (50 Gy in 5 fx from 01/18/2015-01/27/2015. Previous therapy: As above. 1) Radiation to trachea and right lung. 2) Taxol. 3) Neratinib. Didn't tolerate--diarrhea. Current therapy: 1) Taxol. Presents for ongoing oncologic management. Interim history: She has no complaints today. Hycodan is helping her get more sputum up then as a consequence she's been coughing less. She's not had hemoptysis. No episode of fever. Chronic shortness of breath with exertion is unchanged. No chest pain. No other musculoskeletal pain. Appetite is still fair. No symptoms of neuropathy. PMH, medications and allergies personally reviewed by me today. Any changes documented in appropriate section. ROS: Constitutional: Denies episodes of night sweats. Neuro: Denies POND, vertigo and imbalance. HEENT: No recent change in voice, vision or hearing. CVS: Denies exertional chest pain, PND, orthopnea and LE edema. GI: Denies reflux and abdominal pain. No symptoms of stomatitis. : Still gets small amount of urine. Endo: No hot flashes. Derm: No rash. Heme: No unusual bleeding or bruising. Psych: Normal mood. PHYSICAL EXAM: Vitals: Blood pressure 138/58, pulse 102, temperature 36.7 ?C (98 ?F), weight 74.4 kg (164 lb). Well-appearing and in no acute distress. EYES: Sclerae are anicteric bilaterally. NECK: Supple. LYMPHATIC: There is no palpable cervical, supraclavicular adenopathy. RESPIRATORY: There is better air entry in the right upper and lower lung field. Still has diminished air entry in the right mid lung field. No wheezes appreciated today. There is resonance to percussion at the bases bilaterally. CARDIOVASCULAR: Rhythm is regular. ABDOMEN: The abdomen is nondistended. No tenderness. Extremities: Free of edema. SKIN: No jaundice or rash. No petechiae. 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 No focal motor weakness. 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 -ER/KS negative tumor. -She tolerated single agent Taxol symptomatically very well in the past but required RBC transfusional support. 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 -Now again tolerating Taxol well. -Previously discussed advanced directives and healthcare power of contracts attorney. Plan: -Continue Taxol. -Monitor CBC for possible transfusion every week. -Rx for Hycodan for further symptomatic control of cough. Eric Arteaga DO Referring Provider: ERIC ARTEAGA [[id number]] Allergies As of Date: 12/03/2017 (No Known Allergies) Date Reviewed: 12/03/2017 Reviewed by: Tania Acharya (Jessica) JESSICA Newman - Fully Assessed Reason for Visit: Established Patient [175] Primary Visit Diagnosis: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] Other Visit Diagnoses:Malignant neoplasm metastatic to right lung (HCC) [C78.01] Cough [R05] Order(s):CT CHEST W IVCON [[id number]] Order #: [id number] FUTURE iv contrast (will be provided with radiology test)CT Chest W -Inject, intravenously, once for 1 dose.No IV access, insert saline lock prior to the beginning of sedation, infusion, injection of imaging exam. Discontinue saline lock post exam. If Pt. has a central line or IVAD, may access for administration according to line specific nursing protocol. Once exam is complete flush line and de- access according to line specific nursing protocol in the CT contrast administration guidelines link.Disp: 1 EachRfl: 0 HYDROcodone-homatropine (HYDROMET) 5-1.5 mg/5 mL (5 mL) syrupTake 5 mL by mouth four times daily as needed for up to 14 days.Disp: 240 mLRfl: 0 Follow-up and Disposition History Recorded Prescriptions as of 12/03/2017 Sig: HYDROCODONE-HOMATROPINE 5 MG-* Take 5 mL by mouth four times* ASCORBIC ACID (VITAMIN C) 500* Take 500 mg by mouth once lesia* ALBUTEROL SULFATE 2.5 MG/3 ML* Use 3 mL via nebulizer every * DIPHENOXYLATE-ATROPINE 2.5 MG* Take 1-2 tablets by mouth pipo* ALBUTEROL SULFATE HFA 90 MCG/* Inhale 2 Puffs as instructed * ONDANSETRON HCL 8 MG TABLET Take 1 tablet by mouth every * LISINOPRIL 20 MG TABLET Take 1 tablet by mouth twice * ERGOCALCIFEROL (VITAMIN D2) 5* Take 1 capsule by mouth once * CLOBETASOL 0.05 % TOPICAL CRE* Apply 1 application to affect* FOLIC ACID 1 MG TABLET Take 1 tablet by mouth once d* STOOL SOFTENER 100 MG CAPSULE TAKE 1 CAPSULE TWICE A DAY AMLODIPINE 10 MG TABLET Take 10 mg by mouth once adolfo* FAMOTIDINE 20 MG TABLET Take 1 tablet by mouth twice * CALCIUM ACETATE 667 MG TABLET Take 667 mg by mouth three ti* VITAMIN B COMPLEX AND VITAMIN* Take 1 capsule by mouth once * ACETAMINOPHEN 325 MG TABLET Take 650 mg by mouth every 6 * IV CONTRAST (RADIOLOGY PROCED* CT Chest W -Inject, intraveno* [id number]* Take 10 mL by mouth every 4 h* NERATINIB 40 MG TABLET Take 6 tablets by mouth once * Patient not taking: Reported on 12/03/2017 Problem List As Of Date 12/03/2017 Noted Resolved Obesity [E66.9] INVALID FOR*09/13/2010 Pallor [R23.1] INVALID FOR*07/10/2009 LBP (low back pain) [M54.5] INVALID FOR*10/25/2012 Vomiting [R11.10] INVALID FOR*09/13/2010 Anemia due to blood loss [D50.0] INVALID FOR*12/27/2009 Dyspnea [R06.00] INVALID FOR*08/26/2009 Chest Pain [R07.9] INVALID FOR*08/26/2009 Cervix cancer [C53.9] INVALID FOR*10/25/2012 More... 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 Radiation cystitis [N30.40] INVALID FOR*10/25/2012 S/P ileal conduit [Z93.6] INVALID FOR*10/25/2012 SUMMARY [V999.95] INVALID FOR* Priority: A More... Progressively worsening kidney function [N18.9]INVALID FOR*04/03/2017 Priority: B More... Hx of cervical cancer [Z85.41] INVALID FOR* Priority: E More... H/o Renal cell cancer [C64.9] INVALID FOR* Priority: F More... DVT prophylaxis [VJE6093] INVALID FOR*11/02/2012 Priority: L More... DISPOSITION AND FOLLOW-UP [V999.01] INVALID FOR*11/02/2012 Priority: M More... Iron deficiency anemia [D50.9] INVALID FOR* Priority: C More... Euthyroid sick syndrome [E07.81] INVALID FOR* Priority: G More... Osteomyelitis [M86.9] INVALID FOR* Priority: D More... Renal failure [N19] INVALID FOR*04/03/2017 End stage renal disease (HCC) [N18.6] INVALID FOR*04/03/2017 Anemia [D64.9] Primary lung cancer with metastasis from lung t*INVALID FOR*09/22/2016 Right middle lobe pneumonia [J18.1] INVALID FOR* Chronic kidney disease, stage V (HCC) [N18.5] More... Cancer of trachea, bronchus, and lung (HCC) [C3*INVALID FOR* More... 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] INVALID FOR* Dialysis patient (HCC) [Z99.2] INVALID FOR* Essential hypertension with goal blood pressure*INVALID FOR* Primary lung cancer with metastasis from lung t*INVALID FOR* Diastolic dysfunction [I51.9] INVALID FOR* Mitral valve insufficiency [I34.0] INVALID FOR* Rash and nonspecific skin eruption [R21] INVALID FOR* Elevated TSH [R79.89] INVALID FOR* Dyspepsia [R10.13] INVALID FOR* ESRD on hemodialysis (HCC) [N18.6, Z99.2] INVALID FOR*04/03/2017 Anemia, chronic renal failure, stage 5 (HCC) [N*INVALID FOR* Acute on chronic diastolic congestive heart gisell*INVALID FOR* ESRD (end stage renal disease) on dialysis (HCC*INVALID FOR* Snoring [R06.83] INVALID FOR* PND (paroxysmal nocturnal dyspnea) [R06.00] INVALID FOR* Fatigue [R53.83] INVALID FOR* Visit Notes: >> Tania Newman LPN SunDec 03, 2017 10:51 AM Status: Signed Est pt, discuss recent lab results, tx Sunday Tania Newman LPN Encounter Status:Closed by ERIC ARTEAGA DO on 12/03/17 [place] ABS GR + CBC Collected: 11/21/2017 Status: F Source: [place] 12:[address] [facility] REPOSITORY TYPE CODE TESTS RESULT OUT OF REFERENCE UNITS RANGE LAB WWBC 3.70-11.00 k/uL [place] WBC 5.00 LAB WRBC 3.90-5.20 m/uL Low [place] RBC 3.19 LAB WHGB 11.5-15.5 g/dL Low [place] Hemoglobin 9.0 LAB WHCT 36.0-46.0 % Low [place] Hematocrit 29.5 LAB WMCV 80.0-100.0 fL [place] MCV 92.5 LAB WMCH 26.0-34.0 pg [place] MCH 28.2 LAB WMCHC 30.5-36.0 g/dL [place] MCHC 30.5 LAB WRDW 11.5-15.0 % [place] High RDW 18.6 LAB WPLT 150-400 k/uL [place] Platelet Cnt 213 LAB WMPV 9.0-12.7 fL [place] MPV 9.4 Result Comment: Test performed at: [address] [place] [address]. LAB ABGRAN 1.45-7.50 k/uL Absol Gran 3.99 Count [place] ABS GR + CBC Collected: 11/14/2017 Status: F Source: [place] 10:[address] [facility] REPOSITORY TYPE CODE TESTS RESULT OUT OF REFERENCE UNITS RANGE LAB WWBC 3.70-11.00 k/uL [place] WBC 4.11 LAB WRBC 3.90-5.20 m/uL Low [place] RBC 3.10 LAB WHGB 11.5-15.5 g/dL Low [place] Hemoglobin 8.4 LAB WHCT 36.0-46.0 % Low [place] Hematocrit 28.4 LAB WMCV 80.0-100.0 fL [place] MCV 91.6 LAB WMCH 26.0-34.0 pg [place] MCH 27.1 LAB WMCHC 30.5-36.0 g/dL Low [place] MCHC 29.6 LAB WRDW 11.5-15.0 % [place] High RDW 17.5 LAB WPLT 150-400 k/uL [place] Platelet Cnt 204 LAB WMPV 9.0-12.7 fL Low [place] MPV 8.8 Result Comment: Test performed at: [address] [place] [address]. LAB ABGRAN 1.45-7.50 k/uL Absol Gran 3.10 Count CNPJuliette Observed: 11/14/2017 Status: COMPLETED Source: [place] 12:[address] [facility] REPOSITORY Telephone (HEMAWS) YUN NELSON ([id number]) 1960 F Date Time Provider Department 11/14/17 ERIC ARTEAGA During your visit today, we recorded the following information about you: Rina Breaux RN, RN 11/14/2017 12:55 PM Signed Pt asking if you could write a prescription you had given her previously for her cough. She was not sure of the name and I didn't see a cough med in her history. She has not had a fever. Please advise. Eric Arteaga DO 11/14/2017 1:02 PM Signed It as for Hycodan syrup. Please see if Mary Alice willing to do it. I'll be upstairs for a while. DO Mary Alice Meredith APRN.CNP 11/14/2017 1:10 PM Signed Done. Mary Alice Smith APRN.GERMÁN Ramos RN, RN 11/14/2017 1:16 PM Signed Rx given to patient by Mary Alice Smith APRN.GERMÁN Smith APRN.CNP 11/14/2017 1:22 PM Signed Pt. left. Rx in drawer. Mary Alice Smith APRN.GERMÁN Allergies As of Date: 11/14/2017 (No Known Allergies) Date Reviewed: 11/14/2017 Reviewed by: Rina (Rn) HELDER Breaux - Fully Assessed Reason for Visit: Cough [28] Visit Diagnoses: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] Malignant neoplasm metastatic to right lung (HCC) [C78.01] Cough [R05] Order(s):HYDROcodone-homatropine (HYDROMET) 5-1.5 mg/5 mL (5 mL) syrupTake 5 mL by mouth four times daily as needed for up to 7 days.Disp: 120 mLRfl: 0 Prescriptions as of 11/14/2017 Sig: HYDROCODONE-HOMATROPINE 5 MG-* Take 5 mL by mouth four times* ASCORBIC ACID (VITAMIN C) 500* Take 500 mg by mouth once lesia* [id number]* Take 10 mL by mouth every 4 h* ALBUTEROL SULFATE 2.5 MG/3 ML* Use 3 mL via nebulizer every * DIPHENOXYLATE-ATROPINE 2.5 MG* Take 1-2 tablets by mouth pipo* ALBUTEROL SULFATE HFA 90 MCG/* Inhale 2 Puffs as instructed * NERATINIB 40 MG TABLET Take 6 tablets by mouth once * Patient not taking: Reported on 10/09/2017 ONDANSETRON HCL 8 MG TABLET Take 1 tablet by mouth every * LISINOPRIL 20 MG TABLET Take 1 tablet by mouth twice * ERGOCALCIFEROL (VITAMIN D2) 5* Take 1 capsule by mouth once * CLOBETASOL 0.05 % TOPICAL CRE* Apply 1 application to affect* FOLIC ACID 1 MG TABLET Take 1 tablet by mouth once d* STOOL SOFTENER 100 MG CAPSULE TAKE 1 CAPSULE TWICE A DAY AMLODIPINE 10 MG TABLET Take 10 mg by mouth once adolfo* FAMOTIDINE 20 MG TABLET Take 1 tablet by mouth twice * CALCIUM ACETATE 667 MG TABLET Take 667 mg by mouth three ti* VITAMIN B COMPLEX AND VITAMIN* Take 1 capsule by mouth once * ACETAMINOPHEN 325 MG TABLET Take 650 mg by mouth every 6 * Problem List As Of Date 11/14/2017 Noted Resolved Obesity [E66.9] INVALID FOR*09/13/2010 Pallor [R23.1] INVALID FOR*07/10/2009 LBP (low back pain) [M54.5] INVALID FOR*10/25/2012 Vomiting [R11.10] INVALID FOR*09/13/2010 Anemia due to blood loss [D50.0] INVALID FOR*12/27/2009 Dyspnea [R06.00] INVALID FOR*08/26/2009 Chest Pain [R07.9] INVALID FOR*08/26/2009 Cervix cancer [C53.9] INVALID FOR*10/25/2012 More... 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 Radiation cystitis [N30.40] INVALID FOR*10/25/2012 S/P ileal conduit [Z93.6] INVALID FOR*10/25/2012 SUMMARY [V999.95] INVALID FOR* Priority: A More... Progressively worsening kidney function [N18.9]INVALID FOR*04/03/2017 Priority: B More... Hx of cervical cancer [Z85.41] INVALID FOR* Priority: E More... H/o Renal cell cancer [C64.9] INVALID FOR* Priority: F More... DVT prophylaxis [[id number]] INVALID FOR*11/02/2012 Priority: L More... DISPOSITION AND FOLLOW-UP [V999.01] INVALID FOR*11/02/2012 Priority: M More... Iron deficiency anemia [D50.9] INVALID FOR* Priority: C More... Euthyroid sick syndrome [E07.81] INVALID FOR* Priority: G More... Osteomyelitis [M86.9] INVALID FOR* Priority: D More... Renal failure [N19] INVALID FOR*04/03/2017 End stage renal disease (HCC) [N18.6] INVALID FOR*04/03/2017 Anemia [D64.9] Primary lung cancer with metastasis from lung t*INVALID FOR*09/22/2016 Right middle lobe pneumonia [J18.1] INVALID FOR* Chronic kidney disease, stage V (HCC) [N18.5] More... Cancer of trachea, bronchus, and lung (HCC) [C3*INVALID FOR* More... 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] INVALID FOR* Dialysis patient (HCC) [Z99.2] INVALID FOR* Essential hypertension with goal blood pressure*INVALID FOR* Primary lung cancer with metastasis from lung t*INVALID FOR* Diastolic dysfunction [I51.9] INVALID FOR* Mitral valve insufficiency [I34.0] INVALID FOR* Rash and nonspecific skin eruption [R21] INVALID FOR* Elevated TSH [R79.89] INVALID FOR* Dyspepsia [R10.13] INVALID FOR* ESRD on hemodialysis (HCC) [N18.6, Z99.2] INVALID FOR*04/03/2017 Anemia, chronic renal failure, stage 5 (HCC) [N*INVALID FOR* Acute on chronic diastolic congestive heart gisell*INVALID FOR* ESRD (end stage renal disease) on dialysis (HCC*INVALID FOR* Snoring [R06.83] INVALID FOR* PND (paroxysmal nocturnal dyspnea) [R06.00] INVALID FOR* Fatigue [R53.83] INVALID FOR* Prescriptions ordered this encounter Disp Refills Start End HYDROCODONE-HOMATROPINE 5 MG-1.5 MG/* 120 * 0 11/14/2017 11/21/2017 Class: Print RX Route: ORAL Sig: Take 5 mL by mouth four times daily as needed for up to 7 days. Encounter Status:Closed by SUZIE RAMOS on 11/14/17 PROGRESS Observed: 11/09/2017 Status: COMPLETED Source: [place] 11:[address] [facility] REPOSITORY HNO ID: [id number] Author: Lawrence Dozier Service: (none) Author Type: Physician Type: Progress Notes Filed: 11/09/2017 11:55 AM Note Text: CC: Yun Nelson is a 57 year old female who presents to The office for 3 months follow up HPI: Previously HTN: controlled with Lisinopril and Norvasc medications, denies CP or dyspnea or POND or dizziness/LH No hx of CAD ? ? ? Glucose (mg/dL) Date Value 09/18/2016 87 ? ? Potassium (mmol/L) Date Value 09/18/2016 5.5 ? ? Sodium (mmol/L) Date Value 09/18/2016 140 ? ? Chloride (mmol/L) Date Value 09/18/2016 94 ? ? CO2 (mmol/L) Date Value 09/18/2016 31 ? ? Creatinine (mg/dL) Date Value 09/18/2016 8.62 ? ? Creatinine, Whole Blood (iSTAT) (mg/dL) Date Value 03/28/2017 6.10 ? ? BUN (mg/dL) Date Value 09/18/2016 54 Anion Gap (mmol/L) Date Value 09/18/2016 15 ? ? Calcium (mg/dL) Date Value 09/18/2016 9.9 ? ? Protein, Total (g/dL) Date Value 04/16/2017 8.1 ? ? Albumin (g/dL) Date Value 04/16/2017 3.7 ? ? Bilirubin, Total (mg/dL) Date Value 04/16/2017 0.3 ? ? Alkaline Phosphatase (U/L) Date Value 04/16/2017 90 ? ? AST (U/L) Date Value 04/16/2017 19 ? ? ALT (U/L) Date Value 04/16/2017 11 ? ? Glucose (mg/dL) Date Value 08/06/2017 81 Potassium (mmol/L) Date Value 08/06/2017 3.8 Sodium (mmol/L) Date Value 08/06/2017 145 Chloride (mmol/L) Date Value 08/06/2017 98 CO2 (mmol/L) Date Value 08/06/2017 32 Creatinine (mg/dL) Date Value 08/06/2017 7.30 BUN (mg/dL) Date Value 08/06/2017 31 Anion Gap (mmol/L) Date Value 08/06/2017 15 Calcium (mg/dL) Date Value 08/06/2017 9.2 ? ?? Hypertriglyceridemia,never on medications for this, hasn't had this recently rechecked ? Cholesterol Date Value Ref Range Status 04/07/2015 154 100 - 199 mg/dL Final ? HDL Cholesterol Date Value Ref Range Status 04/07/2015 27 (L) >55 mg/dL Final ? LDL Cholesterol Date Value Ref Range Status 04/07/2015 91 60 - 129 mg/dL Final ? Triglyceride Date Value Ref Range Status 04/07/2015 181 (H) 30 - 149 mg/dL Final ? Primary lung cancer, treated by Dr. Stone and Dr. Perdomo, has routine follow up, metastatic, seeing Dr. Arteaga regularly, on chemotherapy ? ?? Iron deficiency anemia and vitamin D deficiency associated with ESRD on HD ?? Use of her?handicap placard, difficulty on HD days to walk far and struggles with fatigue chronically due to ESRD. 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 Cared for by Dr. Moy Shredding Specialist, has ESRD with HD , , Sat here in [place]. Takes Nephrocaps as prescribed. she is still taking HD 3 days a week per her right arm fistula. ? Currently Overall doing okay, complains of concerns for sleep apnea, had to be placed on Bipap machine when she was at [facility] 1 month ago for shortness of breath. Does have fatigue, has chronic dyspnea, worse at night when laying flat, PND symptoms and snoring. Never has been screened for ABDIAS, did feel better was she was placed on Bipap when hospitalized. HD, still having every , and Sat, has missed only a few sessions due to fatigue or illness etc. Cervical cancer, lung/tracheal cancer, seeing Dr. Arteaga regularly Glucose (mg/dL) Date Value 08/06/2017 81 Potassium (mmol/L) Date Value 08/06/2017 3.8 Sodium (mmol/L) Date Value 08/06/2017 145 Chloride (mmol/L) Date Value 08/06/2017 98 CO2 (mmol/L) Date Value 08/06/2017 32 Creatinine (mg/dL) Date Value 08/06/2017 7.30 BUN (mg/dL) Date Value 08/06/2017 31 Anion Gap (mmol/L) Date Value 08/06/2017 15 Calcium (mg/dL) Date Value 08/06/2017 9.2 Protein, Total (g/dL) Date Value 11/05/2017 6.8 Albumin (g/dL) Date Value 11/05/2017 3.9 Bilirubin, Total (mg/dL) Date Value 11/05/2017 0.2 Alkaline Phosphatase (U/L) Date Value 11/05/2017 63 AST (U/L) Date Value 11/05/2017 19 ALT (U/L) Date Value 11/05/2017 8 Hemoglobin (g/dL) Date Value 08/04/2015 10.7 Hematocrit (%) Date Value 08/04/2015 34.7 WBC (k/uL) Date Value 08/04/2015 4.38 PAST MEDICAL HISTORY Diagnosis Date - Acute on chronic diastolic congestive heart failure (HCC) 08/08/2017 - Amblyopia vision loss right eye - Anemia - Anemia, chronic renal failure, stage 5 (HCC) 06/14/2017 - Arthritis - Bowel disease Gastritis - Cancer of trachea, bronchus, and lung (HCC) 09/04/2016 Adenocarcinoma. Visible endobronchial tumor in trachea, R main bronchus and BI. - Cervix cancer (HCC) 07/05/2009 Presumed at least stage IIb cervical cancer, radiation completed 10/15/09 - Chronic kidney disease, stage V (HCC) on HD Madisyn Salmon Sat, Shredding Specialist Dr. 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 states this has NOT been an issue - Personal history of unspecified urinary disorder PAST SURGICAL HISTORY Procedure Laterality Date - BRONCHOSCOPY - COLONOSCOP W/ OR W/O BRSH SPEC 12/27/2009 recto-vaginal fistula - COLONOSCOP W/ OR W/O BRSH SPEC 12/03/2013 normal - COLOSTOMY 06/10/10 - EGD W/O OR W/BRUSH/WASH 12/27/2009 EGD - EGD W/O OR W/BRUSH/WASH 12/03/2014 normal - INSRT UTER TANDMS/VAG OVOIDS 10/26/09 INSERT UTERINE TANDEMS FOR CLINICAL BRACHYTHERAPY performed by ADELA JOY at OR - LAPAROSCOPIC NEPHRECTOMY 08/17/2009 Left: pT2, Clear Cell RCC, 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 - PAST SURGICAL HISTORY OF 06/22/11 Debridement R inf pubic ramus-osteomyelitis - PAST SURGICAL HISTORY OF 06/2011 urostomy - PAST SURGICAL HISTORY OF 08/2013 surgery on right arm for dialyasis - PELVIC EXAMINATION W ANESTH 06/22/2011 EUA/cysto - PELVIC EXENTERATION 09/07/2011 Current Outpatient Prescriptions: ascorbic acid, vitamin C, (VITAMIN C) 500 mg tablet Take 500 mg by mouth once daily. albuterol (PROVENTIL) 2.5 mg /3 mL (0.083 %) nebulizer solution Use 3 mL via nebulizer every 2 hours as needed for Wheezing/Shortness of Breath. Use over 5-15minutes. diphenoxylate-atropine (LOMOTIL) 2.5-0.025 mg per tablet Take 1-2 tablets by mouth every 6 hours as needed for Diarrhea for up to 14 days. albuterol HFA (PROAIR HFA) 90 mcg/actuation inhaler Inhale 2 Puffs as instructed every 4 hours as needed. ondansetron (ZOFRAN) 8 mg tablet Take 1 tablet by mouth every 8 hours as needed for Nausea/Vomiting. lisinopril (ZESTRIL, PRINIVIL) 20 mg tablet Take 1 tablet by mouth twice daily. ergocalciferol, vitamin D2, (DRISDOL) 50,000 unit capsule Take 1 capsule by mouth once each week. Once weekly clobetasol (TEMOVATE) 0.05 % cream Apply 1 application to affected area twice daily. As needed for rash on arms folic acid 1 mg tablet Take 1 tablet by mouth once daily. STOOL SOFTENER 100 mg capsule TAKE 1 CAPSULE TWICE A DAY amLODIPine (NORVASC) 10 mg tablet Take 10 mg by mouth once daily. famotidine (PEPCID) 20 mg tablet Take 1 tablet by mouth twice daily as needed (stomach upset). calcium acetate 667 mg tab Take 667 mg by mouth three times daily. b complex, c, folic acid 1 mg renal vitamins (TRIPHROCAPS) 1 mg capsule Take 1 capsule by mouth once daily. acetaminophen (TYLENOL) 325 mg tablet Take 650 mg by mouth every 6 hours as needed. rkpfifgqnyLVTRM-blaiti-fnczrthzr (BMX 1:1:1) 1:1:1 liqd Take 10 mL by mouth every 4 hours as needed. swish and spit. Do not swallow. neratinib 40 mg tab Take 6 tablets by mouth once daily. (Patient not taking: Reported on 10/09/2017 ) No current facility-administered medications for this visit. 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 Spouse still active smoker, in home. Alcohol use: No Drug use: No Sexual activity: Yes Partners with: Male Other Topics Concern Service No Blood Transfusions Yes Caffeine Concern No Occupational Exposure No Hobby Hazards No Sleep Concern No Stress Concern No Weight Concern No Special Diet No Back Care No Exercise Yes Comment:sometimes Bike Helmet No Seat Belt No Self-Exams Yes ROS: See HPI. PE: BP 130/60 Pulse 80 Temp (Src) 98.4 (Left Tympanic) Resp 20 Wt 164 lb (74.4kg) Gen: AANDOX3, NAD, non-toxic appearing, cooperative HEENT: PERRLA, EOMIs with lateral deviation right eye, nares without drainage, pharynx without erythema, exudate, lesions, or drainage. Uvula midline. MMM, poor dentition Neck: No LAD, no thyromegaly, no meningismus. CV: RRR, 3/6 HSM LUSB, LLSB?murmur, normal s1s2? Lungs: right lower and upper lobes with scattered rhonchi and wheezing, intermittent on left lower/upper lobes rhonchi, intermittent moist cough No edema Thoracic kyphosis Skin: eczematous dry rash on b/l outer arms and thighs and abdomen Fistula palpable and appears intact right upper inner arm ASSESSMENT/PLAN: 1. PND (paroxysmal nocturnal dyspnea) - ICD9: 786.09, ICD10: R06.00 (primary diagnosis) - screening for ABDIAS - POLYSOMNOGRAM (PSG)/HOME SLEEP APNEA TESTING (HSAT) 2. Snoring - ICD9: 786.09, ICD10: R06.83 - screening for ABDIAS - POLYSOMNOGRAM (PSG)/HOME SLEEP APNEA TESTING (HSAT) 3. Fatigue, unspecified type - ICD9: 780.79, ICD10: R53.83 - screening for ABDIAS - POLYSOMNOGRAM (PSG)/HOME SLEEP APNEA TESTING (HSAT) 4. ESRD (end stage renal disease) on dialysis (HCC) - ICD9: 585.6, V45.11, ICD10: N18.6, Z99.2 - f/u with Shredding Specialist, continue HD by fistula 5. Primary lung cancer with metastasis from lung to other site, right (HCC) - ICD9: 162.9, ICD10: C34.91 - f/u with Oncologist 6. Anemia, chronic renal failure, stage 5 (HCC) - ICD9: 285.21, 585.5, ICD10: N18.5, D63.1 - f/u with Oncologist 7. Essential hypertension with goal blood pressure less than 140/90 - ICD9: 401.9, ICD10: I10 - good control - Continue current medication(s) - Recommended regular aerobic exercise. - Recommend home blood pressure monitoring, to bring results in on next visit - Goal of BP <130/80 8. Dialysis patient (HCC) - ICD9: V45.11, ICD10: Z99.2 - see above Lawrence Dozier DO Return if no improvement. Follow up with Lawrence Dozier DO. To ER if develops chest pain, shortness of breath, Discussed risks, benefits, alternatives, and potential side effects of medications. Patient/Guardian expressed understanding and agreed with the plan. See patient instructions. Lawrence Dozier DO [address] [place] [address] CNOV Observed: 11/09/2017 Status: COMPLETED Source: [place] 11:[address] [facility] REPOSITORY Office Visit (FAMPWS) YUN NELSON ([id number]) 1960 F Date Time Provider Department 11/09/17 11:00 AM [facility] During your visit today, we recorded the following information about you: Temperature Pulse Respiration Blood pressure 98.4 degrees 80/minute 20/minute 130/60 Weight 74.4 kg Lawrence Dozier DO 11/09/2017 11:55 AM Signed CC: Yun Nelson is a 57 year old female who presents to The office for 3 months follow up HPI: Previously HTN: controlled with Lisinopril and Norvasc medications, denies CP or dyspnea or POND or dizziness/LH No hx of CAD ? ? ? Glucose (mg/dL) Date Value 09/18/2016 87 ? ? Potassium (mmol/L) Date Value 09/18/2016 5.5 ? ? Sodium (mmol/L) Date Value 09/18/2016 140 ? ? Chloride (mmol/L) Date Value 09/18/2016 94 ? ? CO2 (mmol/L) Date Value 09/18/2016 31 ? ? Creatinine (mg/dL) Date Value 09/18/2016 8.62 ? ? Creatinine, Whole Blood (iSTAT) (mg/dL) Date Value 03/28/2017 6.10 ? ? BUN (mg/dL) Date Value 09/18/2016 54 Anion Gap (mmol/L) Date Value 09/18/2016 15 ? ? Calcium (mg/dL) Date Value 09/18/2016 9.9 ? ? Protein, Total (g/dL) Date Value 04/16/2017 8.1 ? ? Albumin (g/dL) Date Value 04/16/2017 3.7 ? ? Bilirubin, Total (mg/dL) Date Value 04/16/2017 0.3 ? ? Alkaline Phosphatase (U/L) Date Value 04/16/2017 90 ? ? AST (U/L) Date Value 04/16/2017 19 ? ? ALT (U/L) Date Value 04/16/2017 11 ? ? Glucose (mg/dL) Date Value 08/06/2017 81 Potassium (mmol/L) Date Value 08/06/2017 3.8 Sodium (mmol/L) Date Value 08/06/2017 145 Chloride (mmol/L) Date Value 08/06/2017 98 CO2 (mmol/L) Date Value 08/06/2017 32 Creatinine (mg/dL) Date Value 08/06/2017 7.30 BUN (mg/dL) Date Value 08/06/2017 31 Anion Gap (mmol/L) Date Value 08/06/2017 15 Calcium (mg/dL) Date Value 08/06/2017 9.2 ? ?? Hypertriglyceridemia,never on medications for this, hasn't had this recently rechecked ? Cholesterol Date Value Ref Range Status 04/07/2015 154 100 - 199 mg/dL Final ? HDL Cholesterol Date Value Ref Range Status 04/07/2015 27 (L) >55 mg/dL Final ? LDL Cholesterol Date Value Ref Range Status 04/07/2015 91 60 - 129 mg/dL Final ? Triglyceride Date Value Ref Range Status 04/07/2015 181 (H) 30 - 149 mg/dL Final ? Primary lung cancer, treated by Dr. Stone and Dr. Perdomo, has routine follow up, metastatic, seeing Dr. Arteaga regularly, on chemotherapy ? ?? Iron deficiency anemia and vitamin D deficiency associated with ESRD on HD ?? Use of her?handicap placard, difficulty on HD days to walk far and struggles with fatigue chronically due to ESRD. 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 Cared for by Dr. Moy Shredding Specialist, has ESRD with HD , , Sat here in [place]. Takes Nephrocaps as prescribed. she is still taking HD 3 days a week per her right arm fistula. ? Currently Overall doing okay, complains of concerns for sleep apnea, had to be placed on Bipap machine when she was at [facility] 1 month ago for shortness of breath. Does have fatigue, has chronic dyspnea, worse at night when laying flat, PND symptoms and snoring. Never has been screened for ABDIAS, did feel better was she was placed on Bipap when hospitalized. HD, still having every , and Sat, has missed only a few sessions due to fatigue or illness etc. Cervical cancer, lung/tracheal cancer, seeing Dr. Arteaga regularly Glucose (mg/dL) Date Value 08/06/2017 81 Potassium (mmol/L) Date Value 08/06/2017 3.8 Sodium (mmol/L) Date Value 08/06/2017 145 Chloride (mmol/L) Date Value 08/06/2017 98 CO2 (mmol/L) Date Value 08/06/2017 32 Creatinine (mg/dL) Date Value 08/06/2017 7.30 BUN (mg/dL) Date Value 08/06/2017 31 Anion Gap (mmol/L) Date Value 08/06/2017 15 Calcium (mg/dL) Date Value 08/06/2017 9.2 Protein, Total (g/dL) Date Value 11/05/2017 6.8 Albumin (g/dL) Date Value 11/05/2017 3.9 Bilirubin, Total (mg/dL) Date Value 11/05/2017 0.2 Alkaline Phosphatase (U/L) Date Value 11/05/2017 63 AST (U/L) Date Value 11/05/2017 19 ALT (U/L) Date Value 11/05/2017 8 Hemoglobin (g/dL) Date Value 08/04/2015 10.7 Hematocrit (%) Date Value 08/04/2015 34.7 WBC (k/uL) Date Value 08/04/2015 4.38 PAST MEDICAL HISTORY Diagnosis Date - Acute on chronic diastolic congestive heart failure (HCC) 08/08/2017 - Amblyopia vision loss right eye - Anemia - Anemia, chronic renal failure, stage 5 ([facility]) 06/14/2017 - Arthritis - Bowel disease Gastritis - Cancer of trachea, bronchus, and lung ([facility]) 09/04/2016 Adenocarcinoma. Visible endobronchial tumor in trachea, R main bronchus and BI. - Cervix cancer ([facility]) 07/05/2009 Presumed at least stage IIb cervical cancer, radiation completed 10/15/09 - Chronic kidney disease, stage V ([facility]) on HD Madisyn Salmon Sat, Shredding Specialist Dr. 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 states this has NOT been an issue - Personal history of unspecified urinary disorder PAST SURGICAL HISTORY Procedure Laterality Date - BRONCHOSCOPY - COLONOSCOP W/ OR W/O BRSH SPEC 12/27/2009 recto-vaginal fistula - COLONOSCOP W/ OR W/O BRSH SPEC 12/03/2013 normal - COLOSTOMY 06/10/10 - EGD W/O OR W/BRUSH/WASH 12/27/2009 EGD - EGD W/O OR W/BRUSH/WASH 12/03/2014 normal - INSRT UTER TANDMS/VAG OVOIDS 10/26/09 INSERT UTERINE TANDEMS FOR CLINICAL BRACHYTHERAPY performed by ADELA JOY at OR - LAPAROSCOPIC NEPHRECTOMY 08/17/2009 Left: pT2, Clear Cell RCC, 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 - PAST SURGICAL HISTORY OF 06/22/11 Debridement R inf pubic ramus-osteomyelitis - PAST SURGICAL HISTORY OF 06/2011 urostomy - PAST SURGICAL HISTORY OF 08/2013 surgery on right arm for dialyasis - PELVIC EXAMINATION W ANESTH 06/22/2011 EUA/cysto - PELVIC EXENTERATION 09/07/2011 Current Outpatient Prescriptions: ascorbic acid, vitamin C, (VITAMIN C) 500 mg tablet Take 500 mg by mouth once daily. albuterol (PROVENTIL) 2.5 mg /3 mL (0.083 %) nebulizer solution Use 3 mL via nebulizer every 2 hours as needed for Wheezing/Shortness of Breath. Use over 5-15minutes. diphenoxylate-atropine (LOMOTIL) 2.5-0.025 mg per tablet Take 1-2 tablets by mouth every 6 hours as needed for Diarrhea for up to 14 days. albuterol HFA (PROAIR HFA) 90 mcg/actuation inhaler Inhale 2 Puffs as instructed every 4 hours as needed. ondansetron (ZOFRAN) 8 mg tablet Take 1 tablet by mouth every 8 hours as needed for Nausea/Vomiting. lisinopril (ZESTRIL, PRINIVIL) 20 mg tablet Take 1 tablet by mouth twice daily. ergocalciferol, vitamin D2, (DRISDOL) 50,000 unit capsule Take 1 capsule by mouth once each week. Once weekly clobetasol (TEMOVATE) 0.05 % cream Apply 1 application to affected area twice daily. As needed for rash on arms folic acid 1 mg tablet Take 1 tablet by mouth once daily. STOOL SOFTENER 100 mg capsule TAKE 1 CAPSULE TWICE A DAY amLODIPine (NORVASC) 10 mg tablet Take 10 mg by mouth once daily. famotidine (PEPCID) 20 mg tablet Take 1 tablet by mouth twice daily as needed (stomach upset). calcium acetate 667 mg tab Take 667 mg by mouth three times daily. b complex, c, folic acid 1 mg renal vitamins (TRIPHROCAPS) 1 mg capsule Take 1 capsule by mouth once daily. acetaminophen (TYLENOL) 325 mg tablet Take 650 mg by mouth every 6 hours as needed. vkrkeujqsbWVZJS-cxlmyc-wpphlfxjr (BMX 1:1:1) 1:1:1 liqd Take 10 mL by mouth every 4 hours as needed. swish and spit. Do not swallow. neratinib 40 mg tab Take 6 tablets by mouth once daily. (Patient not taking: Reported on 10/09/2017 ) No current facility-administered medications for this visit. 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 Spouse still active smoker, in home. Alcohol use: No Drug use: No Sexual activity: Yes Partners with: Male Other Topics Concern Service No Blood Transfusions Yes Caffeine Concern No Occupational Exposure No Hobby Hazards No Sleep Concern No Stress Concern No Weight Concern No Special Diet No Back Care No Exercise Yes Comment:sometimes Bike Helmet No Seat Belt No Self-Exams Yes ROS: See HPI. PE: BP 130/60 Pulse 80 Temp (Src) 98.4 (Left Tympanic) Resp 20 Wt 164 lb (74.4kg) Gen: AANDOX3, NAD, non-toxic appearing, cooperative HEENT: PERRLA, EOMIs with lateral deviation right eye, nares without drainage, pharynx without erythema, exudate, lesions, or drainage. Uvula midline. MMM, poor dentition Neck: No LAD, no thyromegaly, no meningismus. CV: RRR, 3/6 HSM LUSB, LLSB?murmur, normal s1s2? Lungs: right lower and upper lobes with scattered rhonchi and wheezing, intermittent on left lower/upper lobes rhonchi, intermittent moist cough No edema Thoracic kyphosis Skin: eczematous dry rash on b/l outer arms and thighs and abdomen Fistula palpable and appears intact right upper inner arm ASSESSMENT/PLAN: 1. PND (paroxysmal nocturnal dyspnea) - ICD9: 786.09, ICD10: R06.00 (primary diagnosis) - screening for ABIDAS - POLYSOMNOGRAM (PSG)/HOME SLEEP APNEA TESTING (HSAT) 2. Snoring - ICD9: 786.09, ICD10: R06.83 - screening for ABDIAS - POLYSOMNOGRAM (PSG)/HOME SLEEP APNEA TESTING (HSAT) 3. Fatigue, unspecified type - ICD9: 780.79, ICD10: R53.83 - screening for ABDIAS - POLYSOMNOGRAM (PSG)/HOME SLEEP APNEA TESTING (HSAT) 4. ESRD (end stage renal disease) on dialysis (HCC) - ICD9: 585.6, V45.11, ICD10: N18.6, Z99.2 - f/u with Shredding Specialist, continue HD by fistula 5. Primary lung cancer with metastasis from lung to other site, right (HCC) - ICD9: 162.9, ICD10: C34.91 - f/u with Oncologist 6. Anemia, chronic renal failure, stage 5 ([facility]) - ICD9: 285.21, 585.5, ICD10: N18.5, D63.1 - f/u with Oncologist 7. Essential hypertension with goal blood pressure less than 140/90 - ICD9: 401.9, ICD10: I10 - good control - Continue current medication(s) - Recommended regular aerobic exercise. - Recommend home blood pressure monitoring, to bring results in on next visit - Goal of BP <130/80 8. Dialysis patient (HCC) - ICD9: V45.11, ICD10: Z99.2 - see above Lawrence Dozier DO Return if no improvement. Follow up with Lawrence Dozier DO. To ER if develops chest pain, shortness of breath, Discussed risks, benefits, alternatives, and potential side effects of medications. Patient/Guardian expressed understanding and agreed with the plan. See patient instructions. Lawrence Dozier DO [address] [place] [address] Referring Provider: LAWRENCE DOZIER [[id number]] Allergies As of Date: 11/09/2017 (No Known Allergies) Date Reviewed: 11/09/2017 Reviewed by: Lawrence Dozier - Fully Assessed Reason for Visit: Follow Up [171] Cmt: 3 months Primary Visit Diagnosis:PND (paroxysmal nocturnal dyspnea) [R06.00] Other Visit Diagnoses:Snoring [R06.83] Fatigue, unspecified type [R53.83] ESRD (end stage renal disease) on dialysis ([facility]) [N18.6, Z99.2] Primary lung cancer with metastasis from lung to other site, right ([facility]) [C34.91] Anemia, chronic renal failure, stage 5 ([facility]) [N18.5, D63.1] Essential hypertension with goal blood pressure less than 140/90 [I10] Dialysis patient ([facility]) [Z99.2] Order(s):POLYSOMNOGRAM (PSG)/HOME SLEEP APNEA TESTING (HSAT) [[id number]] Order #: [id number] FUTURE Prescriptions as of 11/09/2017 Sig: ASCORBIC ACID (VITAMIN C) 500* Take 500 mg by mouth once lesia* ALBUTEROL SULFATE 2.5 MG/3 ML* Use 3 mL via nebulizer every * DIPHENOXYLATE-ATROPINE 2.5 MG* Take 1-2 tablets by mouth pipo* ALBUTEROL SULFATE HFA 90 MCG/* Inhale 2 Puffs as instructed * ONDANSETRON HCL 8 MG TABLET Take 1 tablet by mouth every * LISINOPRIL 20 MG TABLET Take 1 tablet by mouth twice * ERGOCALCIFEROL (VITAMIN D2) 5* Take 1 capsule by mouth once * CLOBETASOL 0.05 % TOPICAL CRE* Apply 1 application to affect* FOLIC ACID 1 MG TABLET Take 1 tablet by mouth once d* STOOL SOFTENER 100 MG CAPSULE TAKE 1 CAPSULE TWICE A DAY AMLODIPINE 10 MG TABLET Take 10 mg by mouth once adolfo* FAMOTIDINE 20 MG TABLET Take 1 tablet by mouth twice * CALCIUM ACETATE 667 MG TABLET Take 667 mg by mouth three ti* VITAMIN B COMPLEX AND VITAMIN* Take 1 capsule by mouth once * ACETAMINOPHEN 325 MG TABLET Take 650 mg by mouth every 6 * [id number]* Take 10 mL by mouth every 4 h* NERATINIB 40 MG TABLET Take 6 tablets by mouth once * Patient not taking: Reported on 10/09/2017 Problem List As Of Date 11/09/2017 Noted Resolved Obesity [E66.9] INVALID FOR*09/13/2010 Pallor [R23.1] INVALID FOR*07/10/2009 LBP (low back pain) [M54.5] INVALID FOR*10/25/2012 Vomiting [R11.10] INVALID FOR*09/13/2010 Anemia due to blood loss [D50.0] INVALID FOR*12/27/2009 Dyspnea [R06.00] INVALID FOR*08/26/2009 Chest Pain [R07.9] INVALID FOR*08/26/2009 Cervix cancer [C53.9] INVALID FOR*10/25/2012 More... 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 Radiation cystitis [N30.40] INVALID FOR*10/25/2012 S/P ileal conduit [Z93.6] INVALID FOR*10/25/2012 SUMMARY [V999.95] INVALID FOR* Priority: A More... Progressively worsening kidney function [N18.9]INVALID FOR*04/03/2017 Priority: B More... Hx of cervical cancer [Z85.41] INVALID FOR* Priority: E More... H/o Renal cell cancer [C64.9] INVALID FOR* Priority: F More... DVT prophylaxis [SME2687] INVALID FOR*11/02/2012 Priority: L More... DISPOSITION AND FOLLOW-UP [V999.01] INVALID FOR*11/02/2012 Priority: M More... Iron deficiency anemia [D50.9] INVALID FOR* Priority: C More... Euthyroid sick syndrome [E07.81] INVALID FOR* Priority: G More... Osteomyelitis [M86.9] INVALID FOR* Priority: D More... Renal failure [N19] INVALID FOR*04/03/2017 End stage renal disease (HCC) [N18.6] INVALID FOR*04/03/2017 Anemia [D64.9] Primary lung cancer with metastasis from lung t*INVALID FOR*09/22/2016 Right middle lobe pneumonia [J18.1] INVALID FOR* Chronic kidney disease, stage V (HCC) [N18.5] More... Cancer of trachea, bronchus, and lung (HCC) [C3*INVALID FOR* More... 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] INVALID FOR* Dialysis patient (HCC) [Z99.2] INVALID FOR* Essential hypertension with goal blood pressure*INVALID FOR* Primary lung cancer with metastasis from lung t*INVALID FOR* Diastolic dysfunction [I51.9] INVALID FOR* Mitral valve insufficiency [I34.0] INVALID FOR* Rash and nonspecific skin eruption [R21] INVALID FOR* Elevated TSH [R79.89] INVALID FOR* Dyspepsia [R10.13] INVALID FOR* ESRD on hemodialysis (HCC) [N18.6, Z99.2] INVALID FOR*04/03/2017 Anemia, chronic renal failure, stage 5 (HCC) [N*INVALID FOR* Acute on chronic diastolic congestive heart gisell*INVALID FOR* ESRD (end stage renal disease) on dialysis (HCC*INVALID FOR* Snoring [R06.83] INVALID FOR* PND (paroxysmal nocturnal dyspnea) [R06.00] INVALID FOR* Fatigue [R53.83] INVALID FOR* Encounter Status:Closed by LAWRENCE DOZIER DO on 11/09/17 PROGRESS Observed: 11/05/2017 Status: COMPLETED Source: [place] 10:[address] [facility] REPOSITORY HNO ID: [id number] Author: Eric Arteaga Service: (none) Author Type: Physician Type: Progress Notes Filed: 11/05/2017 11:04 AM Note Text: Diagnoses: Cervical cancer and RCC. HPI: Underwent a left sided laparoscopic nephrectomy. The pathology demonstrated a T3 (7 cm) clear cell, renal cell carcinoma. Additionally, at the same time patient underwent a laparoscopic, left pelvic, lymph node dissection and right, periaortic, lymph node biopsy with lysis of adhesions. It appeared that the possible pelvic adenopathy visualized on a PET scan may have been due to a left sided hydrosalpinx and possibly enlarged left ovary. A one enlarged retroperitoneal lymph node was visualized, it was removed and it was found not to contain metastatic cancer. Previous therapy: 1. 04/29/2010 - multiple cervical and vaginal biopsies. 2. 08/17/2009 - Laparoscopic left pelvic lymph node dissection and right periaortic lymph node biopsies, lysis of adhesions. one enlarged retroperitoneal lymph node was visualized, it was removed and it was found not to contain metastatic cancer 3. 08/17/2009 - Laparoscopic left radical nephrectomy. The pathology demonstrated a T3 (7 cm) clear cell, renal cell carcinoma. (Dr Ac) 4. Concurrent Cisplatin/RT 09/13/09 - 10/15/09. Total RT dose 4500 cGy in 25 fx. 5. Shaheen template for brachytherapy with Dr. Vasquez, total dose 2250cGy in 5 fractions 10/27/09-10/29/09. 6. 04/29/2010 - Multiple cervical and vaginal biopsies, negative for recurrent disease 7. 06/10/2010 - Exploratory laparotomy, lysis of adhesions, bilateral pelvic lymphadenectomy. This case was done in conjunction with Dr. Bentley Colebrt, who performed an end descending colostomy to bypass the rectovaginal fistula. 8. 06/22/2011 - Exam under anesthesia with cystoscopy. This case was done in conjunction with Dr. Ernesto Burton, who performed exam under anesthesia, biopsies, and curettage of the right pubic ramus with irrigation. 9. 09/07/2011 - Total pelvic exenteration with ileal conduit (Dr. Strong), creation of neovagina (Dr. Polanco) and right pubic ramus biopsies (Dr. Burton). 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 All lymph nodes negative. 10. 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 S/P SBRT to RML (50 Gy in 5 fx from 01/18/2015-01/27/2015. 11. Palliative radiation to the trachea and right lung 10/09/16 to 10/30/16. EGD 11/2013: The examined esophagus was normal. The entire examined stomach was normal. Biopsies were taken with a cold forceps for histology. Estimated blood loss was minimal. The examined duodenum was normal. Biopsies were taken with a cold forceps for evaluation of celiac disease. Estimated blood loss was minimal. Impression: - Normal esophagus. - Normal stomach. Biopsied. - Normal examined duodenum. Biopsied. Colonoscopy 11/2013: The colon (entire examined portion) appeared normal. Impression: - The entire examined colon is normal. Recent CT Noncontrast CT scan of the chest demonstrating interval enlargement of a right middle lobe medial irregularly marginated soft tissue mass. There is subpleural fat deposition at the left lung base with 2 small nodules, the more medial slightly increased in size. There are also 2 diaphragmatic pleural-based nodules which may be stable. She had been undergoing dialysis for about a year. She underwent pelvic exoneration. She developed obstructive uropathy leading to end-stage renal disease. I received a brief note from her dial brusher indicating that the patient has been receiving maximum doses of Procrit and she has been running hemoglobin in the 's. 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 S/P SBRT to RML (50 Gy in 5 fx from 01/18/2015-01/27/2015. Previous therapy: As above. 1) Radiation to trachea and right lung. 2) Taxol. Current therapy: 1) Neratinib. Presents for ongoing oncologic management. Interim history: Tolerating Taxol well. No significant neuropathy. Respiratory status is stable. She missed dialysis last week and was hospitalized for dialysis. Currently her cough is under good control. Hycodan definitely helps her especially at night she said. She is not short of breath at rest. No chest pain or pressure. PMH, medications and allergies personally reviewed by me today. Any changes documented in appropriate section. ROS: Constitutional: Denies episodes of night sweats. Neuro: Denies POND, vertigo and imbalance. HEENT: No recent change in voice, vision or hearing. CVS: Denies exertional chest pain, PND, orthopnea and LE edema. GI: Denies reflux and abdominal pain. No symptoms of stomatitis. : Still gets small amount of urine. Endo: No hot flashes. Derm: No rash. Heme: No unusual bleeding or bruising. Psych: Normal mood. PHYSICAL EXAM: Vitals: Blood pressure 150/67, pulse 93, temperature 36.8 ?C (98.3 ?F), temperature source Oral, weight 73.9 kg (163 lb). Well-appearing and in no acute distress. EYES: Sclerae are anicteric bilaterally. NECK: Supple. LYMPHATIC: There is no palpable cervical, supraclavicular adenopathy. RESPIRATORY: There is better air entry in the right upper and lower lung field. Still has diminished air entry in the right mid lung field. No wheezes appreciated today. There is resonance to percussion at the bases bilaterally. CARDIOVASCULAR: Rhythm is regular. ABDOMEN: The abdomen is nondistended. No tenderness. Extremities: Free of edema. SKIN: No jaundice or rash. No petechiae. 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 No focal motor weakness. 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 -ER/KS negative tumor. -She tolerated single agent Taxol symptomatically very well but required RBC transfusional support. 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 -Tolerating Taxol well. -I personally reviewed CT images. 2 small nodules in the right lower lobe were present in June and are a little bit larger now. Patient had about a 2 month hiatus from Taxol. Therefore essentially stable disease. Reviewed these findings with the patient. She and I are both comfortable with continuing Taxol and reimaging following 2 more cycles. -Previously discussed advanced directives and healthcare power of contracts attorney. Plan: -Continue Taxol. -Monitor CBC for possible transfusion every week. -Rx for Hycodan for further symptomatic control of cough. Eric Arteaga DO CNOVSP Observed: 11/05/2017 Status: COMPLETED Source: [place] 10:[address] [facility] REPOSITORY Visit (SP) Office ([facility]) YUN NELSON ([id number]) 1960 F Date Time Provider Department 11/05/17 10:30 AM JENNI ERIC Ancelmo CHASE During your visit today, we recorded the following information about you: Temperature Pulse Blood pressure Weight 98.3 degrees 93/minute 150/67 73.9 kg Eric ArteagaDO 11/05/2017 11:04 AM Signed Diagnoses: Cervical cancer and RCC. HPI: Underwent a left sided laparoscopic nephrectomy. The pathology demonstrated a T3 (7 cm) clear cell, renal cell carcinoma. Additionally, at the same time patient underwent a laparoscopic, left pelvic, lymph node dissection and right, periaortic, lymph node biopsy with lysis of adhesions. It appeared that the possible pelvic adenopathy visualized on a PET scan may have been due to a left sided hydrosalpinx and possibly enlarged left ovary. A one enlarged retroperitoneal lymph node was visualized, it was removed and it was found not to contain metastatic cancer. Previous therapy: 1. 04/29/2010 - multiple cervical and vaginal biopsies. 2. 08/17/2009 - Laparoscopic left pelvic lymph node dissection and right periaortic lymph node biopsies, lysis of adhesions. one enlarged retroperitoneal lymph node was visualized, it was removed and it was found not to contain metastatic cancer 3. 08/17/2009 - Laparoscopic left radical nephrectomy. The pathology demonstrated a T3 (7 cm) clear cell, renal cell carcinoma. (Dr Ac) 4. Concurrent Cisplatin/RT 09/13/09 - 10/15/09. Total RT dose 4500 cGy in 25 fx. 5. Shaheen template for brachytherapy with Dr. Vasquez, total dose 2250cGy in 5 fractions 10/27/09-10/29/09. 6. 04/29/2010 - Multiple cervical and vaginal biopsies, negative for recurrent disease 7. 06/10/2010 - Exploratory laparotomy, lysis of adhesions, bilateral pelvic lymphadenectomy. This case was done in conjunction with Dr. 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 8. 06/22/2011 - Exam under anesthesia with cystoscopy. This case was done in conjunction with Dr. Ernesto Burton, who performed exam under anesthesia, biopsies, and curettage of the right pubic ramus with irrigation. 9. 09/07/2011 - Total pelvic exenteration with ileal conduit (Dr. Strong), creation of neovagina (Dr. Polanco) and right pubic ramus biopsies (Dr. Burton). 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 All lymph nodes negative. 10. 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 S/P SBRT to RML (50 Gy in 5 fx from 01/18/2015-01/27/2015. 11. Palliative radiation to the trachea and right lung 10/09/16 to 10/30/16. EGD 11/2013: The examined esophagus was normal. The entire examined stomach was normal. Biopsies were taken with a cold forceps for histology. Estimated blood loss was minimal. The examined duodenum was normal. Biopsies were taken with a cold forceps for evaluation of celiac disease. Estimated blood loss was minimal. Impression: - Normal esophagus. - Normal stomach. Biopsied. - Normal examined duodenum. Biopsied. Colonoscopy 11/2013: The colon (entire examined portion) appeared normal. Impression: - The entire examined colon is normal. Recent CT Noncontrast CT scan of the chest demonstrating interval enlargement of a right middle lobe medial irregularly marginated soft tissue mass. There is subpleural fat deposition at the left lung base with 2 small nodules, the more medial slightly increased in size. There are also 2 diaphragmatic pleural-based nodules which may be stable. She had been undergoing dialysis for about a year. She underwent pelvic exoneration. She developed obstructive uropathy leading to end-stage renal disease. I received a brief note from her dial brusher indicating that the patient has been receiving maximum doses of Procrit and she has been running hemoglobin in the 9's. 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 S/P SBRT to RML (50 Gy in 5 fx from 01/18/2015-01/27/2015. Previous therapy: As above. 1) Radiation to trachea and right lung. 2) Taxol. Current therapy: 1) Neratinib. Presents for ongoing oncologic management. Interim history: Tolerating Taxol well. No significant neuropathy. Respiratory status is stable. She missed dialysis last week and was hospitalized for dialysis. Currently her cough is under good control. Hycodan definitely helps her especially at night she said. She is not short of breath at rest. No chest pain or pressure. PMH, medications and allergies personally reviewed by me today. Any changes documented in appropriate section. ROS: Constitutional: Denies episodes of night sweats. Neuro: Denies POND, vertigo and imbalance. HEENT: No recent change in voice, vision or hearing. CVS: Denies exertional chest pain, PND, orthopnea and LE edema. GI: Denies reflux and abdominal pain. No symptoms of stomatitis. : Still gets small amount of urine. Endo: No hot flashes. Derm: No rash. Heme: No unusual bleeding or bruising. Psych: Normal mood. PHYSICAL EXAM: Vitals: Blood pressure 150/67, pulse 93, temperature 36.8 ?C (98.3 ?F), temperature source Oral, weight 73.9 kg (163 lb). Well-appearing and in no acute distress. EYES: Sclerae are anicteric bilaterally. NECK: Supple. LYMPHATIC: There is no palpable cervical, supraclavicular adenopathy. RESPIRATORY: There is better air entry in the right upper and lower lung field. Still has diminished air entry in the right mid lung field. No wheezes appreciated today. There is resonance to percussion at the bases bilaterally. CARDIOVASCULAR: Rhythm is regular. ABDOMEN: The abdomen is nondistended. No tenderness. Extremities: Free of edema. SKIN: No jaundice or rash. No petechiae. 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 No focal motor weakness. 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 -ER/KS negative tumor. -She tolerated single agent Taxol symptomatically very well but required RBC transfusional support. 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 -Tolerating Taxol well. -I personally reviewed CT images. 2 small nodules in the right lower lobe were present in June and are a little bit larger now. Patient had about a 2 month hiatus from Taxol. Therefore essentially stable disease. Reviewed these findings with the patient. She and I are both comfortable with continuing Taxol and reimaging following 2 more cycles. -Previously discussed advanced directives and healthcare power of contracts attorney. Plan: -Continue Taxol. -Monitor CBC for possible transfusion every week. -Rx for Hycodan for further symptomatic control of cough. 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 Discontinue saline lock post exam. If Pt. has a central line or IVAD, may access for administration according to line specific nursing protocol. Once exam is complete flush line and de- access according to line specific nursing protocol in the CT contrast administration guidelines link.Disp: 1 EachRfl: 0 Follow-up and Disposition History Recorded Prescriptions as of 11/05/2017 Sig: ASCORBIC ACID (VITAMIN C) 500* Take 500 mg by mouth once lesia* HYDROCODONE-HOMATROPINE 5 MG-* Take 5 mL by mouth four times* ALBUTEROL SULFATE 2.5 MG/3 ML* Use 3 mL via nebulizer every * DIPHENOXYLATE-ATROPINE 2.5 MG* Take 1-2 tablets by mouth pipo* ALBUTEROL SULFATE HFA 90 MCG/* Inhale 2 Puffs as instructed * ONDANSETRON HCL 8 MG TABLET Take 1 tablet by mouth every * LISINOPRIL 20 MG TABLET Take 1 tablet by mouth twice * ERGOCALCIFEROL (VITAMIN D2) 5* Take 1 capsule by mouth once * CLOBETASOL 0.05 % TOPICAL CRE* Apply 1 application to affect* FOLIC ACID 1 MG TABLET Take 1 tablet by mouth once d* STOOL SOFTENER 100 MG CAPSULE TAKE 1 CAPSULE TWICE A DAY AMLODIPINE 10 MG TABLET Take 10 mg by mouth once adolfo* FAMOTIDINE 20 MG TABLET Take 1 tablet by mouth twice * CALCIUM ACETATE 667 MG TABLET Take 667 mg by mouth three ti* VITAMIN B COMPLEX AND VITAMIN* Take 1 capsule by mouth once * ACETAMINOPHEN 325 MG TABLET Take 650 mg by mouth every 6 * IV CONTRAST (RADIOLOGY PROCED* CT Chest W -Inject, intraveno* [id number]* Take 10 mL by mouth every 4 h* NERATINIB 40 MG TABLET Take 6 tablets by mouth once * Patient not taking: Reported on 10/09/2017 Medication notes this encounter [id number] ([facility]) >> Cheyenne Jane MA 11/05/2017 10:18 AM >> CHEYENNE JANE MA Mon Nov 05, 2017 10:18 AM Didn't get RX. Problem List As Of Date 11/05/2017 Noted Resolved Obesity [E66.9] INVALID FOR*09/13/2010 Pallor [R23.1] INVALID FOR*07/10/2009 LBP (low back pain) [M54.5] INVALID FOR*10/25/2012 Vomiting [R11.10] INVALID FOR*09/13/2010 Anemia due to blood loss [D50.0] INVALID FOR*12/27/2009 Dyspnea [R06.00] INVALID FOR*08/26/2009 Chest Pain [R07.9] INVALID FOR*08/26/2009 Cervix cancer [C53.9] INVALID FOR*10/25/2012 More... 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 Radiation cystitis [N30.40] INVALID FOR*10/25/2012 S/P ileal conduit [Z93.6] INVALID FOR*10/25/2012 SUMMARY [V999.95] INVALID FOR* Priority: A More... Progressively worsening kidney function [N18.9]INVALID FOR*04/03/2017 Priority: B More... Hx of cervical cancer [Z85.41] INVALID FOR* Priority: E More... H/o Renal cell cancer [C64.9] INVALID FOR* Priority: F More... DVT prophylaxis [XCI0123] INVALID FOR*11/02/2012 Priority: L More... DISPOSITION AND FOLLOW-UP [V999.01] INVALID FOR*11/02/2012 Priority: M More... Iron deficiency anemia [D50.9] INVALID FOR* Priority: C More... Euthyroid sick syndrome [E07.81] INVALID FOR* Priority: G More... Osteomyelitis [M86.9] INVALID FOR* Priority: D More... Renal failure [N19] INVALID FOR*04/03/2017 End stage renal disease (HCC) [N18.6] INVALID FOR*04/03/2017 Anemia [D64.9] Primary lung cancer with metastasis from lung t*INVALID FOR*09/22/2016 Right middle lobe pneumonia [J18.1] INVALID FOR* Chronic kidney disease, stage V (HCC) [N18.5] More... Cancer of trachea, bronchus, and lung (HCC) [C3*INVALID FOR* More... 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] INVALID FOR* Dialysis patient (HCC) [Z99.2] INVALID FOR* Essential hypertension with goal blood pressure*INVALID FOR* Primary lung cancer with metastasis from lung t*INVALID FOR* Diastolic dysfunction [I51.9] INVALID FOR* Mitral valve insufficiency [I34.0] INVALID FOR* Rash and nonspecific skin eruption [R21] INVALID FOR* Elevated TSH [R79.89] INVALID FOR* Dyspepsia [R10.13] INVALID FOR* ESRD on hemodialysis (HCC) [N18.6, Z99.2] INVALID FOR*04/03/2017 Anemia, chronic renal failure, stage 5 (HCC) [N*INVALID FOR* Acute on chronic diastolic congestive heart gisell*INVALID FOR* ESRD (end stage renal disease) on dialysis (HCC*INVALID FOR* Encounter Status:Closed by ERIC ARTEAGA DO on 11/05/17 [facility] ABS GR + CBC Collected: 11/05/2017 Status: F Source: [place] 10:14 AM [facility] REPOSITORY TYPE CODE TESTS RESULT OUT OF REFERENCE UNITS RANGE LAB WWBC 3.70-11.00 k/uL [facility] WBC 3.83 LAB WRBC 3.90-5.20 m/uL Low [facility] RBC 3.02 LAB WHGB 11.5-15.5 g/dL Low [facility] Hemoglobin 8.2 LAB WHCT 36.0-46.0 % Low [facility] Hematocrit 27.9 LAB WMCV 80.0-100.0 fL [place] MCV 92.4 LAB WMCH 26.0-34.0 pg [place] MCH 27.2 LAB WMCHC 30.5-36.0 g/dL Low [place] MCHC 29.4 LAB WRDW 11.5-15.0 % [place] High RDW 19.7 LAB WPLT 150-400 k/uL [place] Platelet Cnt 190 LAB WMPV 9.0-12.7 fL Low [place] MPV 8.5 Result Comment: Test performed at: [facility], [address] [place] [address]. LAB ABGRAN 1.45-7.50 k/uL Absol 2.90 Gran Count LAB ABSNUC <0.01 k/uL Absolute nRBC Result checked and verified HEPATIC FUNCTN PANEL Collected: 11/05/2017 Status: F Source: [place] 10:[address] [facility] REPOSITORY TYPE CODE TESTS RESULT OUT OF REFERENCE UNITS RANGE LAB ALB 3.9-4.9 g/dL Albumin 3.9 LAB TBIL 0.2-1.3 mg/dL Bilirubin, Total 0.2 LAB CBIL <0.2 mg/dL Bilirubin,Conjuga <0.2 jp LAB ALKP 32-117 U/L Alkaline Phosphatase 63 LAB AST 13-35 U/L AST 19 LAB ALT 7-38 U/L ALT 8 LAB TP 6.3-8.0 g/dL Protein, Total 6.8 Performed By: #### HFP #### [facility] [address] [place], [place] [address] PROGRESS Observed: 10/31/2017 Status: COMPLETED Source: [place] 10:[address] [facility] REPOSITORY HNO ID: [id number] Author: Lakshmi Machado [place] Service: (none) Author Type: (none) Type: Progress Notes Filed: 10/31/2017 10:42 AM Note Text: Radiology Service Progress Note PATIENT NAME: Yun Nelson DATE OF SERVICE: October 31, 2017 TIME: 10:41 AM PATIENT IDENTITY VERIFICATION COMPLETED USING TWO (2) METHODS: Patient confirmed name verbally and Date of . PATIENT GENDER DATA: Female. status: : No status: NO. PATIENT RELEVANT IMPLANT DATA REVIEWED: Not Applicable CONTRAST INDUCED NEPHROPATHY RISK FACTORS: Known Chronic Kidney Disease (CKD) CREATININE: Creatinine Date Value Ref Range Status 08/06/2017 7.30 (H) 0.58 - 0.96 mg/dL Final 09/18/2016 8.62 (H) 0.58 - 0.96 mg/dL Final 08/04/2015 5.71 (H) 0.70 - 1.40 mg/dL Final Creatinine, Whole Blood (iSTAT) Date Value Ref Range Status 03/28/2017 6.10 (H) 0.70 - 1.40 mg/dL Final 02/28/2017 6.00 (H) 0.70 - 1.40 mg/dL Final Comment: Result rechecked. 02/16/2017 5.70 (H) 0.70 - 1.40 mg/dL Final eGFR-All Other Races Date Value Ref Range Status 08/06/2017 6 . Final Comment: eGFR (Estimated GFR) Units of measure: mL/min/1.73 meters squared eGFR is derived from the reexpressed MDRD Study equation using the following parameters: serum creatinine, age, gender and race. The creatinine assay has been calibrated to be traceable to IDMS. An eGFR <60 mL/min/1.73m2 for >3 months is consistent with chronic kidney disease. Refer to KDOQI guidelines for clinical interpretation. In patients with unstable renal function, e.g. those with acute kidney injury, the eGFR may not accurately reflect actual GFR. eGFR- Date Value Ref Range Status 08/06/2017 7 Final P.O.C.T. RESULTS: POC done: Yes, See Lab Tab October 31, 2017 RADIOLOGIST NOTIFIED?: Yes pt having dialysis within the next 24 hours ALLERGIES: Reviewed and unchanged CONTRAST ALLERGY: NO. PERIPHERAL IV ACCESS: lt wrist 22 g RADIOLOGY DEPARTMENT: CT; Exam(s) Completed: Chest SIGNED BY: Lakshmi Machado Ct October 31, 2017 10:[address] CHEST W IVCON Observed: 10/31/2017 Status: F Source: [place] 10:[address] 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 MQ: [id number] Contrast: 50 mL Omnipaque [address] Dose-Length Product: 198 mGy*cm CT Dose Reduction Employed: Automated exposure control (AEC) Comparison: CT chest 07/18/2017 RESULT: Limitations: None. Lines, tubes, and devices: None. Lung parenchyma and pleura: As noted on the previous examination there is occlusion of the right middle lobe bronchus with consolidation of the right middle lobe. There is stable appearance of right perihilar opacities. There is a stable small right pleural effusion. There are multiple new nodules in the right lower lobe. The largest of these measure 6 mm on images 82 and 89, series 4. There is a new 4 mm nodule in the lateral left upper lobe on image 41. Nodule in the anterior left upper lobe measures 7 mm on image 53, previously 5 mm. New 4 mm nodule in the medial left upper lobe on image 82. Thoracic inlet, heart, and mediastinum: Again noted is ill-defined right hilar and subcarinal soft tissue density material likely due to lymphadenopathy. Stable right paratracheal lymph node measures 7 mm short axis dimension on image 51. The thoracic aorta and main pulmonary artery are normal in caliber. There is unchanged enlargement and tortuosity of the right subclavian vein. There are multiple collateral vessels in the anterior chest wall. The cardiac chambers are normal in size. No coronary artery atherosclerotic calcifications are noted, although the study is not optimized for coronary assessment. No pericardial effusion or thickening. Bones and soft tissues: No destructive bone lesion. Chest wall is unremarkable. Upper abdomen: No acute abnormality in the imaged upper abdomen. There are multiple stones in the gallbladder. IMPRESSION: 1. Multiple new bilateral pulmonary nodules 2. Stable small right pleural effusion 3. Stable appearance of right perihilar opacities and right middle lobe consolidation 4. Stable mediastinal and right hilar lymphadenopathy 5. Stable dilatation of the right subclavian vein Solar Maintenance Technician: PSCB Transcribe Date/Time: Nov 05 2017 9:37A Dictated by : PETTY WINTERS MD This examination was interpreted and the report reviewed and electronically signed by: PETTY WINTERS MD on Nov 05 2017 10:04AM EST [id number] [facility] ABS GR + CBC Collected: 10/25/2017 Status: F Source: [place] 11:10 AM [facility] REPOSITORY TYPE CODE TESTS RESULT OUT OF REFERENCE UNITS RANGE LAB WWBC 3.70-11.00 k/uL [place] WBC 5.15 LAB WRBC 3.90-5.20 m/uL Low [facility] RBC 2.85 LAB WHGB 11.5-15.5 g/dL Low [place] Hemoglobin 7.6 LAB WHCT 36.0-46.0 % Low [place] Hematocrit 24.8 LAB WMCV 80.0-100.0 fL [facility] MCV 87.0 LAB WMCH 26.0-34.0 pg [facility] MCH 26.7 LAB WMCHC 30.5-36.0 g/dL [place] MCHC 30.6 LAB WRDW 11.5-15.0 % [facility] High RDW 17.4 LAB WPLT 150-400 k/uL [place] Platelet Cnt 230 LAB WMPV 9.0-12.7 fL [facility] MPV 9.7 Result Comment: Test performed at: [address] [place] [address]. LAB ABGRAN 1.45-7.50 k/uL Absol Gran 4.47 Count [facility] ABS GR + CBC Collected: 10/24/2017 Status: F Source: [place] 8:[address] [facility] REPOSITORY TYPE CODE TESTS RESULT OUT OF REFERENCE UNITS RANGE LAB WWBC 3.70-11.00 k/uL [facility] WBC 3.87 LAB WRBC 3.90-5.20 m/uL Low [place] RBC 2.87 LAB WHGB 11.5-15.5 g/dL Low [place] Hemoglobin 7.6 LAB WHCT 36.0-46.0 % Low [facility] Hematocrit 25.7 LAB WMCV 80.0-100.0 fL [place] MCV 89.5 LAB WMCH 26.0-34.0 pg [place] MCH 26.5 LAB WMCHC 30.5-36.0 g/dL Low [facility] MCHC 29.6 LAB WRDW 11.5-15.0 % [facility] High RDW 18.0 LAB WPLT 150-400 k/uL [facility] Platelet Cnt 180 LAB WMPV 9.0-12.7 fL [facility] MPV 9.7 Result Comment: Test performed at: [address] [place] [address]. LAB ABGRAN 1.45-7.50 k/uL Absol 2.97 Gran Count LAB ABSNUC <0.01 k/uL Absolute nRBC Result checked and verified CNPN Observed: 10/24/2017 Status: COMPLETED Source: [place] 12:[address] [facility] REPOSITORY Telephone (HEMAWS) JIMENAYUN Jenny ([id number]) 1960 F Date Time Provider Department 10/24/17 ERIC ARTEAGA During your visit today, we recorded the following information about you: Suzie Ramos, RN, RN 10/24/2017 9:[address] Arteaga - please review CBC and advise on transfusion. Thank you. Eric Arteaga DO 10/24/2017 9:26 AM Signed I'd like her to stop tomorrow after dialysis for repeat CBC/possible transfusion. DO Suzie Meredith, RN, RN 10/24/2017 9:29 AM Signed Patient notified. Dorothy Tam LPN 10/25/2017 1:03 PM Signed Patient had dialysis today and then a repeat CBC. Hgb today is 7.6, same as yesterday. Spoke with patient, she's feeling okay. Please advise. Dorothy Arteaga DO 10/25/2017 1:16 PM Signed We can just recheck it then next time she's here for chemotherapy. No transfusion. DO Jacque Meredith, HELDER, RN 10/25/2017 1:27 PM Signed Pt. notified. Jacque Jeter RN Allergies As of Date: 10/24/2017 (No Known Allergies) Date Reviewed: 10/24/2017 Reviewed by: Suzie Alanis (Rn) Bhavesh RN - Fully Assessed Reason for Visit: Results [95] Prescriptions as of 10/24/2017 Sig: [id number]* Take 10 mL by mouth every 4 h* ALBUTEROL SULFATE 2.5 MG/3 ML* Use 3 mL via nebulizer every * DIPHENOXYLATE-ATROPINE 2.5 MG* Take 1-2 tablets by mouth pipo* ALBUTEROL SULFATE HFA 90 MCG/* Inhale 2 Puffs as instructed * NERATINIB 40 MG TABLET Take 6 tablets by mouth once * Patient not taking: Reported on 10/09/2017 ONDANSETRON HCL 8 MG TABLET Take 1 tablet by mouth every * LISINOPRIL 20 MG TABLET Take 1 tablet by mouth twice * ERGOCALCIFEROL (VITAMIN D2) 5* Take 1 capsule by mouth once * CLOBETASOL 0.05 % TOPICAL CRE* Apply 1 application to affect* FOLIC ACID 1 MG TABLET Take 1 tablet by mouth once d* STOOL SOFTENER 100 MG CAPSULE TAKE 1 CAPSULE TWICE A DAY AMLODIPINE 10 MG TABLET Take 10 mg by mouth once adolfo* FAMOTIDINE 20 MG TABLET Take 1 tablet by mouth twice * CALCIUM ACETATE 667 MG TABLET Take 667 mg by mouth three ti* VITAMIN B COMPLEX AND VITAMIN* Take 1 capsule by mouth once * ACETAMINOPHEN 325 MG TABLET Take 650 mg by mouth every 6 * Problem List As Of Date 10/24/2017 Noted Resolved Obesity [E66.9] INVALID FOR*09/13/2010 Pallor [R23.1] INVALID FOR*07/10/2009 LBP (low back pain) [M54.5] INVALID FOR*10/25/2012 Vomiting [R11.10] INVALID FOR*09/13/2010 Anemia due to blood loss [D50.0] INVALID FOR*12/27/2009 Dyspnea [R06.00] INVALID FOR*08/26/2009 Chest Pain [R07.9] INVALID FOR*08/26/2009 Cervix cancer [C53.9] INVALID FOR*10/25/2012 More... 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 Radiation cystitis [N30.40] INVALID FOR*10/25/2012 S/P ileal conduit [Z93.6] INVALID FOR*10/25/2012 SUMMARY [V999.95] INVALID FOR* Priority: A More... Progressively worsening kidney function [N18.9]INVALID FOR*04/03/2017 Priority: B More... Hx of cervical cancer [Z85.41] INVALID FOR* Priority: E More... H/o Renal cell cancer [C64.9] INVALID FOR* Priority: F More... DVT prophylaxis [[id number]] INVALID FOR*11/02/2012 Priority: L More... DISPOSITION AND FOLLOW-UP [V999.01] INVALID FOR*11/02/2012 Priority: M More... Iron deficiency anemia [D50.9] INVALID FOR* Priority: C More... Euthyroid sick syndrome [E07.81] INVALID FOR* Priority: G More... Osteomyelitis [M86.9] INVALID FOR* Priority: D More... Renal failure [N19] INVALID FOR*04/03/2017 End stage renal disease (HCC) [N18.6] INVALID FOR*04/03/2017 Anemia [D64.9] Primary lung cancer with metastasis from lung t*INVALID FOR*09/22/2016 Right middle lobe pneumonia [J18.1] INVALID FOR* Chronic kidney disease, stage V (HCC) [N18.5] More... Cancer of trachea, bronchus, and lung (HCC) [C3*INVALID FOR* More... 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] INVALID FOR* Dialysis patient (HCC) [Z99.2] INVALID FOR* Essential hypertension with goal blood pressure*INVALID FOR* Primary lung cancer with metastasis from lung t*INVALID FOR* Diastolic dysfunction [I51.9] INVALID FOR* Mitral valve insufficiency [I34.0] INVALID FOR* Rash and nonspecific skin eruption [R21] INVALID FOR* Elevated TSH [R79.89] INVALID FOR* Dyspepsia [R10.13] INVALID FOR* ESRD on hemodialysis (HCC) [N18.6, Z99.2] INVALID FOR*04/03/2017 Anemia, chronic renal failure, stage 5 (HCC) [N*INVALID FOR* Acute on chronic diastolic congestive heart gisell*INVALID FOR* ESRD (end stage renal disease) on dialysis (HCC*INVALID FOR* Encounter Status:Closed by SUZIE RAMOS on 10/24/17 12 LEAD ELECTROCARDIOGRAM Observed: 10/19/2017 Status: F Source: [place] 1:18 PM [facility] REPOSITORY [facility] Cardiovascular Services [address] [place] [id number] 12 Lead EKG 10/17/17 1031 MR#: [id number] Acct: [id number] Name: YUN NELSON Rep #: [id number] : 1960 57 From: Eric Spann MD Attending Dr: Arlene Ag MD Status: DIS HANNA Ordering Dr: Debi Guillermo DO Date: 10/17/17 Location: [facility] Sex: F C Admitted: 10/17/17 Test Reason : SOB Blood Pressure : / mmHG Vent. Rate : 109 BPM Atrial Rate : 109 BPM P-R Int : 158 ms QRS Dur : 086 ms QT Int : 328 ms P-R-T Axes : 024 049 034 degrees QTc Int : 441 ms Sinus tachycardia Otherwise normal ECG Confirmed by NEHA FARIAS, ERIC ([id number]), index editor FAISAL CLEMENTE ([id number]) on 10/19/2017 1:18:35 PM Referred By: Arlene Ag Confirmed By:ERIC SPANN MD 10/19/17 2739 Date Eric Spann MD CC: Lawrence Fink DO; Arlene Ag MD; Debi Guillermo DO Signed DISCHARGE SUMMARY Observed: 10/18/2017 Status: F Source: [facility] 12:01 PM [facility] REPOSITORY [facility] Medical Records Department [address] [place] [address] Discharge Summary 10/18/17 1127 MR#: [id number] Acct: [id number] Name: YUN NELSON Rep #: [id number] : 1960 57 From: Lisa Plummer [employer]SP[employer] CUTTER-C PCP: Lawrence Fink DO Status: ADM HANNA Y Location: [place] [address] <Lisa Plummer - Last Filed: 10/18/17 11:40> Discharge Date and Diagnosis Date of Admission: 10/17/17 Date of Discharge: 10/18/17 - Primary Discharge Diagnosis Active and Suspected Problems 1. Fluid overload due to missed dialysis 2. Anemia of chronic disease 3. Acute on chronic hypoxic respiratory failure secondary to #1 4. Laryngeal and lung cancer - Secondary Discharge Diagnosis Chronic Problems Bacteremia (Chronic) 02/22/16 Bld Cx preliminary Gram positive keyla Endometrial cancer (Chronic) Status post hysterectomy, cystectomy and partial colectomy due to metastatic disease End-stage renal disease on hemodialysis (Chronic) History of hysterectomy for cancer (Chronic) History of nephrectomy (Chronic) Anemia of chronic renal failure, stage 5 (Chronic) Anemia of chronic renal failure (Chronic) Hypertension (Chronic) Obesity (BMI 30-39.9) (Chronic) History of colostomy (Chronic) History of ileal conduit (Chronic) Hospital Course and Treatment Imaging Results: Diagnostic Data Chest X-Ray 10/17/17 10:18 IMPRESSION: Bilateral airspace disease worse in the right hemithorax suggestive of a bilateral pulmonary edema. Bilateral pneumonia should be considered as well. Electronically Signed: Jose De Jesus Collado MD at 11:09 EDT Tel [phone], Service support , Dr. King- Nephrology Operations: None Procedures: Dialysis Summary of Care Provided: The patient is a 57 year old F admitted 10/17/17 due to shortness of breath. She has a past medical history of endometrial cancer, kidney cancer status post nephrectomy, laryngeal cancer and lung cancer following with Dr. Arteaga, end-stage renal disease on hemodialysis, hypertension, anemia of chronic disease. Patient missed dialysis due to not feeling well. Denies fever, chills. Complains of chronic cough. Denies nausea, vomiting. Patient wears 2 L nasal cannula intermittently at home. She did require BiPAP for short period of time. Acute on chronic hypoxic respiratory failure secondary to fluid overload as a result of missing dialysis. Patient received dialysis 2 with improvement in respiratory symptoms. Oxygen stable on nasal cannula. EKG without ST-T changes. Chest x-ray demonstrated pulmonary edema on admission. Patient's hemoglobin 7.1. Baseline hemoglobin 7-8. Patient will repeat CBC in 2 days as outpatient to be followed by primary care physician and oncology. Follow-up with oncology in 2-3 days. Follow-up with primary care physician in 1 week. Follow-up with nephrology as scheduled, resume current dialysis schedule. General: Alert, Oriented x3, Cooperative, No apparent distress HEENT: Atraumatic, PERRLA, EOMI, Normocephalic Oral: Moist Mucosa Neck: Supple, No JVD, Negative Carotid Bruits Lungs: Diminished, clear to auscultation Cardiovascular: Regular Rhythm, regular rate, normal S1, Normal S2, No murmurs Abdomen: Bowel Sounds Present, Soft, Non Tender, Non-Distended Extremities: No clubbing, No cyanosis, No edema Skin: No rashes, No breakdown Musculoskeletal: No Tenderness to Palpation of Joints or Extremities Lymphatic: No Cervical, Supraclavicular, or Inguinal Adenopathy Neurological: Cranial nerves II-XII grossly intact, neuro grossly intact Psych/Mental Status: Normal Affect, Appropriate Patient seen exam prior to discharge. Physical assessment as noted above. Patient is stable for discharge home with the follow-up her conditions as noted above. This patient was seen by KVNG Krause under the supervision of Dr. Ag. Discharge Diet: Renal Diet Discharge Activity: Return to Normal Activity Call your doctor if you observe: Shortness of breath, Dizziness, Fainting spells, Chest pain Home Medications: Medications to take at Discharge Calcium Acetate [Phoslo Gel Cap] 2 cap PO TID 07/23/14 Docusate Sodium [Colace] 100 mg PO BID PRN 07/23/14 Folic Acid 1 mg PO DAILY@0800 07/23/14 Amlodipine [Norvasc] 10 mg PO DAILY 02/14/15 Lisinopril [Zestril] 20 mg PO BID 02/14/15 Ergocalciferol [Vitamin D] 50,000 unit PO TH 03/02/16 Famotidine [Pepcid AC] 20 mg PO BID PRN 03/02/16 Acetaminophen [Tylenol] 650 mg PO BID PRN 02/16/17 B Complex W-C No.20/Folic Acid [Nephrocaps Softgel] 1 mg PO DAILY 06/07/17 Ondansetron [Zofran] 8 mg PO Q8H PRN PRN 06/07/17 Albuterol Aerosols [Ventolin Aerosols] 2.5 mg INHALATION Q2H PRN PRN #120 vial.neb. 06/11/17 Hydrocodone Bit/Homatrop Me-Br [Hydrocodone-Homatropine Syrup] 1 dose PO 4X/DAY PRN PRN 10/17/17 Primary Care Physician: Lawrence Dozier DO [Primary Care Provider] - Please follow up with your Primary Care Physician in: 1 Week Please Follow Up With: Eric Arteaga DO When: 2-3 days Please Follow Up With: Nephrology When: As scheduled, continue current dialysis regimen Disposition: Home Minutes spent on discharge:: 35 Patient Condition:: Stable Medical Necessity - Tobacco Use Smoking Status: Former smoker Meaningful Use Info Meaningful Use Diagnoses (Choose all that apply): None applicable <KimberliArlene Jeffrey - Last Filed: 10/18/17 12:01> Discharge Date and Diagnosis - Secondary Discharge Diagnosis Chronic Problems Bacteremia (Chronic) 02/22/16 Bld Cx preliminary Gram positive keyla Endometrial cancer (Chronic) Status post hysterectomy, cystectomy and partial colectomy due to metastatic disease End-stage renal disease on hemodialysis (Chronic) History of hysterectomy for cancer (Chronic) History of nephrectomy (Chronic) Anemia of chronic renal failure, stage 5 (Chronic) Anemia of chronic renal failure (Chronic) Hypertension (Chronic) Obesity (BMI 30-39.9) (Chronic) History of colostomy (Chronic) History of ileal conduit (Chronic) Hospital Course and Treatment Summary of Care Provided: Patient seen by Lisa CALDERON under my supervision The patient is a 57 year old F with past medical history as listed above. She was admitted on 10/17/2017 with complaint of shortness of breath after she missed her dialysis session because she was not feeling she had no assisted fever or chills and complained of a chronic cough. She denied any nausea vomiting he usually is on 2 L of oxygen at home. She was admitted and managed for acute on chronic hypoxic respiratory failure due to fluid overload from missed dialysis. Chest x-ray was consistent with pulmonary edema. Nephrology was consulted and she had one session of dialysis with removal of 1 L on 10/17/2017. Patient's hemoglobin fell to 7.1 with baseline hemoglobin been around 7-8. Patient remained stable and per discussion with nephrology, transfusion was deferred as she wasnt <7. She is to have dialysis before discharge and to follow-up with her dial brusher resume regular dialysis schedule. She also to follow-up with oncologist in 2-3 days and repeat CBC in 2 days to determine whether she would need any transfusion. Patient seen and examined prior to discharge. She had no complaints and felt well. Shortness of breath had improved but still has a chronic cough which is nonproductive. She denied any fever or chills, any chest pain, abdominal pain, any diarrhea vomiting. Review of systems otherwise negative. Labs and vitals reviewed. Home medications reviewed and Reconciled prior to discharge. o/e: Vital Signs Height 5 ft 2 in Weight: 168 lb 3.403 oz Weight in Pounds 168.2 lbs Pulse Ox 97 General: Alert, Oriented x3, Cooperative, No apparent distress HEENT: Atraumatic, PERRLA, EOMI, Normocephalic Oral: Moist Mucosa Neck: Supple, No JVD, Negative Carotid Bruits Lungs: Diminished, clear to auscultation Cardiovascular: Regular Rhythm, regular rate, normal S1, Normal S2, No murmurs Abdomen: Bowel Sounds Present, Soft, Non Tender, Non-Distended Extremities: No clubbing, No cyanosis, No edema; AV fistula with good thrill in LUE Skin: No rashes, No breakdown Musculoskeletal: No Tenderness to Palpation of Joints or Extremities Lymphatic: No Cervical, Supraclavicular, or Inguinal Adenopathy Neurological: Cranial nerves II-XII grossly intact, neuro grossly intact Psych/Mental Status: Normal Affect, Appropriate [] Plan as stated above. Agree with rest of Lisa CALDERON's note, assessment and plan. Additional Instructions: to have repeat CBC in 2 days to check Hb and need for transfusion Code Visit Inpatient E AND M: 37805 Disch Hosp 10/18/17 1141 <Electronically signed by Lisa CALDERON> Date Lisa SHANKSC 10/18/17 1201<Electronically signed by Arlene Ag MD> Cosigner Signature (if applicable): Date Arlene Ag MD CC: KVNG Plummer; Lawrence Fink DO; Arlene Ag MD; Eric Arteaga DO Signed DISCHARGE INSTRUCTION Observed: 10/18/2017 Status: F Source: MONTEVIDEO 11:27 AM [facility] Medical Records Department [address] [place] [id number] Instructions for Home/Discharge Instructions 10/18/17 1107 MR#: [id number] Acct: [id number] Name: YUN NELSON Rep #: [id number] : 1960 57 From: Lisa CALDERON PCP: Lawrence Fink DO Status: ADM HANNA - Discharge Diagnoses Current Active Problems: Current Active and Chronic Problems Shortness of breath (Acute) You will use the following diet at home:: Renal (restricted protein/sodium) Discharge Activity: Return to Normal Activity Call your doctor if you observe: Shortness of breath, Dizziness, Fainting spells, Chest pain Allergies/Adverse Reactions: Allergies No Known Allergies Allergy (Verified 10/17/17 09:49) Medications to take at Discharge Calcium Acetate [Phoslo Gel Cap] 2 cap PO TID 07/23/14 Docusate Sodium [Colace] 100 mg PO BID PRN 07/23/14 Folic Acid 1 mg PO DAILY@0800 07/23/14 Amlodipine [Norvasc] 10 mg PO DAILY 02/14/15 Lisinopril [Zestril] 20 mg PO BID 02/14/15 Ergocalciferol [Vitamin D] 50,000 unit PO TH 03/02/16 Famotidine [Pepcid AC] 20 mg PO BID PRN 03/02/16 Acetaminophen [Tylenol] 650 mg PO BID PRN 02/16/17 B Complex W-C No.20/Folic Acid [Nephrocaps Softgel] 1 mg PO DAILY 06/07/17 Ondansetron [Zofran] 8 mg PO Q8H PRN PRN 06/07/17 Albuterol Aerosols [Ventolin Aerosols] 2.5 mg INHALATION Q2H PRN PRN #120 vial.neb. 06/11/17 Hydrocodone Bit/Homatrop Me-Br [Hydrocodone-Homatropine Syrup] 1 dose PO 4X/DAY PRN PRN 10/17/17 Primary Care Physician: Lawrence Dozier DO [Primary Care Provider] - Please follow up with your Primary Care Physician in: 1 Week Test Results: Test results from this visit will be discussed in further detail at your follow-up appointment, if applicable. Please Follow Up With: Eric Arteaga DO When: 2-3 days Please Follow Up With: Nephrology When: As scheduled, continue current dialysis regimen Proposed Discharge Date: 10/18/17 10/18/17 1127 <Electronically signed by Lisa CALDERON> Date Lisa CALDERON CC: Leanne King M.D.; Lawrence Fink DO CBC W/DIFF, AUTOMATED Collected: 10/18/2017 Status: F Source: [place] 6:50 AM [facility] REPOSITORY TYPE CODE TESTS RESULT OUT OF RANGE REFERENCE UNITS LAB L100.1000 4.4-11.0 K/mm3 Normal WBC 4.4 LAB L100.1200 4.2-5.4 M/mm3 Low RBC 2.61 LAB L100.1300 12.0-15.0 g/dl Low HGB 7.1 LAB L100.1400 37-47 % Low HCT 22.4 LAB L100.1500 81-99 fL Normal MCV 85.8 LAB L100.1600 27.0-32.0 pg Normal MCH 27.2 LAB L100.1700 32-36 g/gl Low MCHC 31.7 LAB L100.1810 11.6-14.6 % High RDW CV 16.0 LAB L100.1820 35.1-43.9 fl High RDW SD 48.1 LAB L100.1900 150-450 K/mm3 Normal PLT 183 LAB L100.2000 6.2-12.0 fl Normal MPV 8.8 LAB L100.2100 47-70 % High NEUT% 84.2 LAB L100.2200 19-41 % Low LY% 8.4 LAB L100.2300 0-10 % Normal MONO% 4.6 LAB L100.2400 0-5 % Normal EO% 2.1 LAB L100.2500 0-1 % Normal BASO% 0.2 LAB L100.2550 0.0-0.9 % Normal IM GRAN % 0.500 Result Comment: IG% - Immature Granulocytes (promyelocytes, myelocytes and metamyelocytes) > 1% indicates that a LEFT SHIFT is Present. LAB L100.2620 2.0-7.7 X10 3/uL Normal Absolute Neut 3.7 LAB L100.2720 0.83-4.51 X10 3/ul Low Absolute Lymph 0.37 Performed By: #### L100.0100 #### [facility] [address] [facility]. [place], [place], [id number] RENAL PROFILE Collected: 10/18/2017 Status: F Source: [place] 6:50 AM [facility] REPOSITORY TYPE CODE TESTS RESULT OUT OF RANGE REFERENCE UNITS LAB L501.0100 74-106 mg/dL Normal GLU 84 Result Comment: Please note revised GLUCOSE reference range effective 2017. LAB L501.1000 7-18 mg/dL High BUN 21 LAB L501.1100 0.55-1.02 mg/dL High CREAT,SERUM 4.99 Result Comment: The validity of the calculated GFR AND GFRAA in patients over 70 years has not been determined. Clinical correlation is essential. LAB L501.1110 >60 mL/min Low EST GFR 10 Result Comment: Non- GFR Calc LAB L501.1115 >60 mL/min Low EST GFR - AA 12 Result Comment: GFR Calc LAB L501.1255 ml/min Normal Estimated CRCL 10.07 LAB L501.1300 10-20 RATIO Low BUN/CRE 4.2 LAB L501.1800 3.2-5. g/dL Low 0 ALB 3.0 LAB L501.2200 8.5-10 mg/dL Low .1 CA 8.3 LAB L501.2300 2.5-4. mg/dL Low 9 PHOS 2.4 LAB L501.5300 136-14 mmol/L Normal 5 NA 136 LAB L501.5600 3.5-5. mmol/L Normal 1 K 4.1 LAB L501.5900 98-107 mmol/L Low CL 94 LAB L501.6100 21.0-3 mmol/L Normal 2.0 CO2 32.0 Performed By: #### L500.3600 #### [facility] [address] [facility] [place], [address] HISTORY AND PHYSICAL Observed: 10/17/2017 Status: F Source: MONTEVIDEO EXAM 3:47 PM [facility] REPOSITORY [facility] Medical Records Department [address] [place] [address] History and Physical 10/17/17 1242 MR#: [id number] Acct: [id number] Name: YUN NELSON Rep #: [id number] : 1960 57 From: Arlene Ag MD PCP: Lawrence Fink DO Status: ADM HANNA Y Location: [place] [address] Problem List (1) Shortness of breath Status: Acute History of Present Illness Date of Admission: 10/17/17 Chief Complaint: Shortness of breath The patient is a 57 year old F with a history of endometrial, cancer, kidney cancer s/p nephrectomy, laryngeal cancer and lung cancer as well as ESRD on HD (TTS), . Patient was admitted via the ED after she presented with a complaint of shortness of breath and generalized feeling of unwellness of one days duration. Patient was due to go to dialysis 1 day ago but defaulted because she was just not feeling well. She is also due for chemo today but also defaulted because she does not feeling well. She denies any fever or chills, has a cough which is chronic, denies any chest pain, abdominal pain, nausea, diarrhea vomiting. She is on home oxygen at home which he states is because of the lung cancer and she is usually on 2 L. However when she came in because of shortness of breath had to be increased to 4 L. She is also notes his lower extremity swelling which is worsened. Her last dialysis was about 4 days ago. She has dialysis Saturdays. Review of systems was otherwise negative. She denied any contact with any patient with upper respiratory infection he denied any headache, nasal congestion or rhinorrhea. In the ED, vitals were significant for temperature of 97.6 Fahrenheit, pulse rate of 109, respiratory rate of 22 and she was saturating at around 92% on 4 L of oxygen. Chest x-ray showed bilateral areas of airspace disease worse in the right lung with blunting of costophrenic angles most likely due to pulmonary edema. EKG shows sinus tachycardia with heart rate of [address] changes. There was also moderate cardiac enlargement. She was admitted to be managed for likely fluid overload due to missed dialysis. [] Past Medical History Past Medical History (Chronic Problems): Chronic Problems Bacteremia (Chronic) 02/22/16 Bld Cx preliminary Gram positive keyla Endometrial cancer (Chronic) Status post hysterectomy, cystectomy and partial colectomy due to metastatic disease End-stage renal disease on hemodialysis (Chronic) History of hysterectomy for cancer (Chronic) History of nephrectomy (Chronic) Anemia of chronic renal failure, stage 5 (Chronic) Anemia of chronic renal failure (Chronic) Hypertension (Chronic) Obesity (BMI 30-39.9) (Chronic) History of colostomy (Chronic) History of ileal conduit (Chronic) Allergies No Known Allergies Allergy (Verified 10/17/17 09:49) Home Medications: Ambulatory Orders Medication Instructions Recorded Calcium Acetate [Phoslo Gel Cap] 2 cap PO TID 07/23/14 Docusate Sodium [Colace] 100 mg PO BID PRN 07/23/14 Folic Acid 1 mg PO DAILY@0800 07/23/14 Surgical History: hysterectomy - for cervical cancer, - - Left nephrectomy for cancer with rt ileoconduit, Colostomy, Hysterectomy with BL RAHEEL, AVF RUE. 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 Denies: Anorexia, Chills, Fever, Weight Change Eyes: Denies: Blurred vision HEENT: Denies: Head Aches, Sinus Congestion, Sinus Drainage Cardiovascular: Reports: Edema, Palpitations, Paroxysmal Noc. Dyspnea. Denies: Chest Pain, Orthopnea, Syncope Respiratory: Reports: Cough, Shortness of Breath, Shortness of breath at rest, Shortness of breath upon exertion. Denies: Sputum production Gastrointestinal: Reports: Nausea. Denies: Abdominal Pain, Vomiting Genitourinary: Denies: Dysuria Musculoskeletal: Denies: Joint Pain, Joint Tenderness Skin: Denies: Rash, Wounds Neurological: Denies: Numbness, Tingling, Focal weakness Psychiatric: Denies: Anxiety, Depression, Homicidal Ideations, Suicidal Ideations Hematologic/ Lymphatic: Denies: Easy Bruising, Easy Bleeding VTE Information - Inpt Only VTE Present on Admission: No VTE Mechan Device Prophylaxis: None VTE Pharm Prophylaxis ordered?: Yes Patient Problems: Active and Suspected Problems Shortness of breath (Acute) - Physical Exam General: Alert, Oriented x3, Cooperative, No apparent distress HEENT: Atraumatic, PERRLA, EOMI, Normocephalic Oral: Moist Mucosa Neck: Supple, No JVD, Negative Carotid Bruits Lungs: Diminished, - - Decreased breath sounds in mid and lower lung [place] bilaterally with fine crackles auscultated and mild wheezing. Cardiovascular: Regular Rhythm, Normal S1, Normal S2, No murmurs, Tachycardic Abdomen: Bowel Sounds Present, Soft, Non Tender, Non-Distended, No Hepato-splenomegaly Extremities: No clubbing, No cyanosis, No edema, Capillary Refill Less than 3 Seconds Skin: No rashes, No breakdown Musculoskeletal: No Tenderness to Palpation of Joints or Extremities Lymphatic: No Cervical, Supraclavicular, or Inguinal Adenopathy Neurological: Cranial nerves II-XII grossly intact, Motor Exam 5/5 strength throughout Psych/Mental Status: Normal Affect, Appropriate, Alert and oriented to time, place, person, mood and affect Vital Signs Temp Pulse Resp BP Pulse Ox 97.6 F L 111 H 24 H 174/76 H 91 10/17/17 12:25 10/17/17 12:33 10/17/17 12:25 10/17/17 12:25 10/17/17 12:25 Oxygen Flow Rate (L/min) 3.5 Oxygen Delivery Method Nasal Cannula Weight: 172 lb 9.951 oz Body Mass Index (BMI) 31.6 Laboratory Tests WBC 5.0 RBC 2.92 L Hgb 7.7 L Hct 24.6 L MCV 84.2 MCH 26.4 L MCHC 31.3 L RDW 16.7 H RDW Differential 51.2 H Diagnostic Data Chest X-Ray 10/17/17 10:18 IMPRESSION: Bilateral airspace disease worse in the right hemithorax suggestive of a bilateral pulmonary edema. Bilateral pneumonia should be considered as well. Electronically Signed: Jose De Jesus Collado MD at 11:09 EDT Tel [phone], Service support , Assessment/Plan All Active Problems Shortness of breath (Acute) HCAP (healthcare-associated pneumonia) (Acute) Influenza A (Acute) Acute respiratory failure with hypoxemia (Acute) CAP (community acquired pneumonia) (Acute) Metabolic alkalosis (Acute) Fluid overload (Resolved) Sepsis (Resolved) 57 y/o female with history of ESRD on HD, laryngeal and lung cancer as well as history of endometrial cancer and kidney cancer status post nephrectomy presenting with a 1 day history of generalized unwellness and shortness of breath. 1. Fluid overload due to missed dialysis * didnt go for dialysis yesterday as she started feeling unwell. Had associated nausea but denies any vomiting. * oxygen had to be increased to 4L in ED from her baseline of 2, because of hypoxia * Chest x-ray which showed pulmonary edema. * Admit to PCU telemetry * Consult nephrology for urgent dialysis. * 2. Laryngeal and lung cancer * Due for chemotherapy today but missed it because of acute illness. * Labs showed white cell count of 5 and platelets of 166 * To follow-up with oncologist upon discharge. * 3. Anemia of chronic disease * Hb is 7.7, is a normocytic, hypochromic anemia. Is around her baseline * likely due to cancer and ESRD * 4. Acute on chronic hypoxic respiratory failure due to fluid overload * usually on 2L of oxygen at home. now on 4L of oxygen; saturation dropped to 89% on 2L of oxygen * will likely resolve and she will be back at her baseline with dialysis * titrate oxygen to keep saturation >92% * 5. Hypertension: on amlodipine 10mg daily. Will continue 6. DVT prophylaxis: heparin CODE STATUS: Full code. Patient counseled extensively about different types of fluid status. Patient counseled about the differences between full code, DNR CC and DNR CCA. Patient elects to be full code. Total [id number] time 18 minutes. Next This note was generated with [employer] software. It may contain incorrect words, spelling, and punctuation that were not noted in checking the note before signing. Code Visit OBSV E AND M: 10970 Initial observation care L3 Procedures: 33093 Advncd Care Plan 30 Min 10/17/17 1547 <Electronically signed by Arlene Ag MD> Date Arlene Ag MD Cosigner Signature: Date (if applicable) CC: Lawrence Fink DO; Arlene Ag MD Signed CONSULTATION Observed: 10/17/2017 Status: F Source: [place] 2:10 PM [facility] REPOSITORY [facility] Medical Records Department [address] [place] [address] Consultation 10/17/17 1408 MR#: [id number] Acct: [id number] Name: YUN NELSON Rep #: [id number] : 1960 57 From: Phuong King MD PCP: Lawrence Fink DO Status: ADM HANNA Y Location: [place] [address] Problem List (1) End-stage renal disease on hemodialysis Status: Chronic Consultation - Renal 10/17/17 PCP/ Referring MD: Requesting physician: [] Primary care physician: Lawrence Dozier Reason for Consultation:: ESRD - History of Present Illness History of Present Illness: The patient is a 57 year old F well known to us. ESRD on HD TTS schedule. last HD was sunday, came in fairly dyspneic, CXR shows significant edema. recent history of lung ca. under chemo - Allergies Allergies: Allergies No Known Allergies Allergy (Verified 10/17/17 09:49) - Current Medications Current Medications: Current Medications Acetaminophen (Tylenol) 650 mg PO BID PRN PRN Reason: PAIN Albuterol Sulfate (Ventolin Aerosols) 2.5 mg INHALATION Q2H PRN PRN PRN Reason: SOB AND /OR WHEEZING Amlodipine Besylate (Norvasc) 10 mg PO DAILY [facility] Calcium Acetate (Phoslo Gel Cap) 1,334 mg PO TIDCM [facility] Docusate Sodium (Colace) 100 mg PO BID PRN PRN Reason: Constipation Famotidine (Pepcid) 20 mg PO DAILY PRN PRN Reason: ACID REFLUX Folic Acid (Folic Acid) 1 mg PO DAILY@0800 [facility] Heparin Sodium (Porcine) (Heparin Na) 5,000 unit SC Q8 [facility] Last Admin: 10/17/17 13:48 Dose: 5,000 unit Lactobacillus Acidophilus (Acidophilus) 1 tablet PO TID [facility] Last Admin: 10/17/17 13:48 Dose: Not Given Lisinopril (Zestril) 20 mg PO BID [facility] Magnesium Hydroxide (Milk Of Magnesia) 30 ml PO DAILY PRN PRN PRN Reason: Constipation Multivit/Ca Carb/B Cmplx/FA/Prenat (Nephrocaps, Renaphro) 1 capsule PO DAILY [facility] Nutritional Formula (Lactose Free) (Ensure Enlive) 120 ml PO 4X/DAY [facility] Last Admin: 10/17/17 13:48 Dose: 120 ml Ondansetron HCl (Zofran) 8 mg PO Q8H PRN PRN PRN Reason: NAUSEA Sodium Chloride () 5 - 30 ml IV UD PRN PRN Reason: SALINE FLUSH - Past Medical History Past Medical History (Chronic Problems): Chronic Problems Bacteremia (Chronic) 02/22/16 Bld Cx preliminary Gram positive keyla Endometrial cancer (Chronic) Status post hysterectomy, cystectomy and partial colectomy due to metastatic disease End-stage renal disease on hemodialysis (Chronic) History of hysterectomy for cancer (Chronic) History of nephrectomy (Chronic) Anemia of chronic renal failure, stage 5 (Chronic) Anemia of chronic renal failure (Chronic) Hypertension (Chronic) Obesity (BMI 30-39.9) (Chronic) History of colostomy (Chronic) History of ileal conduit (Chronic) - Past Surgical History Surgical History: hysterectomy - for cervical cancer, - - Left nephrectomy for cancer with rt ileoconduit, Colostomy, Hysterectomy with BL RAHEEL, AVF RUE. - Social History Smoking Status: Former smoker Alcohol: None Drugs: None - Family History Paternal History Items: No pertinent history Maternal History Items: No pertinent history Review of Systems Constitutional: Denies: Chills, Fever, Weight Change HEENT: Denies: Head Aches, Sinus Congestion, Sinus Drainage Cardiovascular: Denies: Chest Pain, Palpitations Respiratory: Denies: Cough, Shortness of breath at rest, Sputum production Gastrointestinal: Denies: Abdominal Pain, Nausea, Vomiting Genitourinary: Denies: Dysuria Musculoskeletal: Denies: Joint Pain, Joint Tenderness Skin: Denies: Rash, Wounds Neurological: Denies: Numbness, Tingling, Focal weakness Psychiatric: Denies: Anxiety, Depression, Homicidal Ideations, Suicidal Ideations Hematologic/ Lymphatic: Denies: Easy Bruising, Easy Bleeding Patient Problems: Active and Suspected Problems Shortness of breath (Acute) - Physical Exam General: Alert, Oriented x3, Cooperative HEENT: Atraumatic, PERRLA, EOMI, Normocephalic Neck: Supple, No JVD, Negative Carotid Bruits Lungs: Normal air movement, Rhonchi Cardiovascular: Regular rate, No murmurs Abdomen: Bowel Sounds Present, Soft, Non Tender Extremities: No edema, Capillary Refill Less than 3 Seconds Skin: No rashes, No breakdown Musculoskeletal: No Tenderness to Palpation of Joints or Extremities Neurological: Cranial nerves II-XII grossly intact Psych/Mental Status: Normal Affect, Appropriate Vital Signs Temp Pulse Resp BP Pulse Ox 97.8 F 106 H 20 H 165/73 H 94 10/17/17 13:05 10/17/17 13:05 10/17/17 13:05 10/17/17 13:05 10/17/17 13:05 Oxygen Flow Rate (L/min) 3.5 Oxygen Delivery Method Nasal Cannula Weight: 78.3 kg Body Mass Index (BMI) 31.6 Assessment/Plan All Active Problems Shortness of breath (Acute) HCAP (healthcare-associated pneumonia) (Acute) Influenza A (Acute) Acute respiratory failure with hypoxemia (Acute) CAP (community acquired pneumonia) (Acute) Metabolic alkalosis (Acute) Fluid overload (Resolved) Sepsis (Resolved) ESRD CHF HD today will try for 3-4 L fluid removal today CXr reviewed 10/17/17 1410 <Electronically signed by Phuong King MD> Date Phuong King MD Cosigner Signature (if applicable): Date CC: Leanne King M.D.; Lawrence Fink DO; Arlene Ag MD Signed EMERGENCY DEPARTMENT Observed: 10/17/2017 Status: F Source: [place] SUMMARY 11:42 AM [facility] REPOSITORY [facility] Medical Records Department [address] [place] [address] Emergency Department Summary 10/17/17 1137 MR#: [id number] Acct: [id number] Name: YUN NELSON Rep #: [id number] : 1960 57 From: Debi Guillermo DO PCP: Lawrence Fink DO Status: REG ER - ER Visit Summary Date of Service: 10/17/17 Chief Complaint: [Shortness of breath] History of Present Illness: The patient is a 57 F [presents with shortness of breath started 2 days ago. Patient complains of a chronic cough. Patient's had some wheezing. Patient does have a history of lung cancer and throat cancer. Patient states that she was too weak to go to her last dialysis which was supposed to be yesterday therefore it has been about 5 days since her last dialysis. Patient denies any fevers at home. Patient at times coughing up some white phlegm. Patient was scheduled to have chemotherapy today but was too weak and was sent to the emergency department.] Physical Examination: HEENT-PERRLA, EOMI. Cranial nerves II through XII grossly intact. TMs clear. Mucous membranes moist. No adenopathy. Cardiovascular-regular and tachycardic. 2 out of 6 systolic ejection murmur noted. Lungs-rales and rhonchi noted bilaterally. Mild tachypnea. No accessory muscle use or retractions. Abdomen-normoactive bowel sounds, soft, nontender, no rebound or rigidity, no peritoneal signs. Extremities-intact 4, normal range of motion, normal pulses, atraumatic[, patient has +2 edema both lower extremities.] Test Results: [EKG obtained shows sinus tachycardia with a ventricular rate of 109 bpm with no acute ST segment changes. CBC with differential obtained showed a white count of 5.0, hemoglobin 7.7, hematocrit 25, platelets 166. Sodium was 139, potassium 5.1, chloride 98, CO2 30, BUN 59, creatinine 10.2, glucose 134. Troponin was 0.021. Chest x-ray showed bilateral pulmonary edema versus possible pneumonia.] Emergency Department Course and Treatment: [Patient case was discussed with hospitalist will evaluate patient for admission. I suspect patient may be fluid overloaded given that she has not been to dialysis in the last 5 days. Clinically I do not feel patient has pneumonia.] Treatment Plan: [Admit for dialysis] Disposition: [Admit] Impression: [Dyspnea Pulmonary edema] This note was generated with [employer] dictation software. It may contain incorrect words, spelling, and punctuation that were not noted in review of the chart prior to signing ED Disposition - Plan for ED Patient: Chief Complaint: Shortness of Breath Referrals: Lawrence Dozier, [Primary Care Provider] - What to do if you have Problems For any increased pain, shortness of breath, bleeding, nausea or vomiting, chest pain, or any unexpected problems, contact your Primary Care Provider. Call [facility] ([phone]) or report to the closest Emergency Room. Call 911 if necessary. 10/17/17 1142 <Electronically signed by Debi Guillermo DO> Date Remus Ungur DO Cosigner Signature (If Indicated): Date CC: Lawrence Fink, DO CBC W/DIFF, AUTOMATED Collected: 10/17/2017 Status: F Source: [place] 10:42 AM [facility] REPOSITORY TYPE CODE TESTS RESULT OUT OF RANGE REFERENCE UNITS LAB L100.1000 4.4-11.0 K/mm3 Normal WBC 5.0 LAB L100.1200 4.2-5.4 M/mm3 Low RBC 2.92 LAB L100.1300 12.0-15.0 g/dl Low HGB 7.7 LAB L100.1400 37-47 % Low HCT 24.6 LAB L100.1500 81-99 fL Normal MCV 84.2 LAB L100.1600 27.0-32.0 pg Low MCH 26.4 LAB L100.1700 32-36 g/gl Low MCHC 31.3 LAB L100.1810 11.6-14.6 % High RDW CV 16.7 LAB L100.1820 35.1-43.9 fl High RDW SD 51.2 LAB L100.1900 150-450 K/mm3 Normal PLT 166 LAB L100.2000 6.2-12.0 fl Normal MPV 9.0 LAB L100.2100 47-70 % High NEUT% 85.6 LAB L100.2200 19-41 % Low LY% 8.0 LAB L100.2300 0-10 % Normal MONO% 4.4 LAB L100.2400 0-5 % Normal EO% 1.2 LAB L100.2500 0-1 % Normal BASO% 0.2 LAB L100.2550 0.0-0.9 % Normal IM GRAN % 0.600 Result Comment: IG% - Immature Granulocytes (promyelocytes, myelocytes and metamyelocytes) > 1% indicates that a LEFT SHIFT is Present. LAB L100.2620 2.0-7.7 X10 3/uL Normal Absolute Neut 4.3 LAB L100.2720 0.83-4.51 X10 3/ul Low Absolute Lymph 0.40 Performed By: #### L100.0100 #### [facility] [address] [place], [address] BASIC METABOLIC Collected: 10/17/2017 Status: F Source: VA[place]NAVI PROFILE (BMP) 10:42 AM [facility] REPOSITORY TYPE CODE TESTS RESULT OUT OF RANGE REFERENCE UNITS LAB L501.0100 74-106 mg/dL High GLU 134 Result Comment: Fasting Glucose result greater than or equal to 126 mg/dL suggests DIABETES MELLITUS per A.D.A. criteria. Please note revised GLUCOSE reference range effective 2017. LAB L501.1000 7-18 mg/dL High BUN 59 LAB L501.1100 0.55-1.02 mg/dL High alert CREAT,SERUM 10.20 Result Comment: Critical Result(s) Called at: 11:19:08 10/17/2017 by: Mario belle in ed The validity of the calculated GFR AND GFRAA in patients over 70 years has not been determined. Clinical correlation is essential. LAB L501.1110 >60 mL/min Low EST GFR 4 Result Comment: Non- GFR Calc LAB L501.1115 >60 mL/min Low EST GFR - AA 5 Result Comment: GFR Calc LAB L501.1255 ml/min Normal Estimated CRCL 4.93 LAB L501.1300 10-20 RATIO Low BUN/CRE 5.8 LAB L501.2200 8.5-10. mg/dL Normal 1 CA 9.9 LAB L501.5300 136-145 mmol/L Normal NA 139 LAB L501.5600 3.5-5.1 mmol/L Normal K 5.1 LAB L501.5900 98-107 mmol/L Normal CL 98 LAB L501.6100 21.0-32 mmol/L Normal .0 CO2 30.0 LAB L501.6200 5-15 Normal GAP 11 Performed By: #### L500.2500, L501.4010 #### [facility] [address] [place], [address] TROPONIN-I Collected: 10/17/2017 Status: F Source: [place] 10:42 AM [facility] [place] REPOSITORY TYPE CODE TESTS RESULT OUT OF RANGE REFERENCE UNITS LAB L501.4010 <0.045 ng/mL Normal 0.021 TROPONIN-I Result Comment: TROPONIN-I EXPECTED VALUES <0.045 Negative 0.045 - 0.590 Consistent with Cardiac Damage > OR = 0.600 Critical Value Not every elevated troponin is indicative of PA. These values should be used with clinical judgement in examining the patient's clinical picture for diagnosis. To establish a diagnosis of PA versus myocardial injury, there must be a demonstrated rise and/or fall in the troponin values, in addition to ischemic symptoms, EKG changes, new regional wall motion abnormality, and/or angiographical evidence. PLEASE NOTE: REFERENCE RANGES EDITED 17 Performed By: #### L500.2500, L501.4010 #### [facility] [address] [place], [address] CHEST 1 VIEW Observed: 10/17/2017 Status: F Source: MONTEVIDEO (PORTABLE) 10:19 AM [facility] [place] REPOSITORY [facility] Services [address] [place] [address] Chest 1 View (Portable) MR#: [id number] Acct: [id number] Name: YUN NELSON Jenny Rep #: [id number] : 1960 F 57 From: Jose De Jesus Collado MD PCP: Lawrence Fink DO Status: REG ER Study: Chest 1 View (Portable) Date of Exam: 10/17/17 Exam# [id number] Ordering Dr: Debi Guillermo DO STUDY: X-RAY CHEST REASON FOR EXAM: Female, 57 years old. 2 day history of shortness of breath. TECHNIQUE: Single AP portable view of the chest. COMPARISON: Comparison is made with prior study dated June 09, 2017. FINDINGS: Bilateral areas of airspace disease worse in the right lung. Blunting of both costophrenic angles. This most likely represents pulmonary edema. There is moderate cardiac enlargement. Normal mediastinum and nacho. Normal visualized pulmonary arteries. There is atherosclerotic calcification of the aortic arch with tortuosity. Normal visualized thoracic spine. Normal visualized ribs, clavicles, and shoulders. There is no demonstrated abnormality of the visualized soft tissue structures of the upper abdomen. RAD/Chest 1 View (Portable) IMPRESSION: Bilateral airspace disease worse in the right hemithorax suggestive of a bilateral pulmonary edema. Bilateral pneumonia should be considered as well. Electronically Signed: Jose De Jesus Collado MD at 11:09 EDT Tel [phone], Service support , CC: Lawrence Fink DO; Debi Guillermo DO Solar Maintenance Technician: Signed PROGRESS Observed: 10/09/2017 Status: COMPLETED Source: [place]ER [place] 12:[address] [facility] REPOSITORY HNO ID: [id number] Author: Eric Arteaga Service: (none) Author Type: Physician Type: Progress Notes Filed: 10/09/2017 12:59 PM Note Text: Diagnoses: Cervical cancer and RCC. HPI: Underwent a left sided laparoscopic nephrectomy. The pathology demonstrated a T3 (7 cm) clear cell, renal cell carcinoma. Additionally, at the same time patient underwent a laparoscopic, left pelvic, lymph node dissection and right, periaortic, lymph node biopsy with lysis of adhesions. It appeared that the possible pelvic adenopathy visualized on a PET scan may have been due to a left sided hydrosalpinx and possibly enlarged left ovary. A one enlarged retroperitoneal lymph node was visualized, it was removed and it was found not to contain metastatic cancer. Previous therapy: 1. 04/29/2010 - multiple cervical and vaginal biopsies. 2. 08/17/2009 - Laparoscopic left pelvic lymph node dissection and right periaortic lymph node biopsies, lysis of adhesions. one enlarged retroperitoneal lymph node was visualized, it was removed and it was found not to contain metastatic cancer 3. 08/17/2009 - Laparoscopic left radical nephrectomy. The pathology demonstrated a T3 (7 cm) clear cell, renal cell carcinoma. (Dr Ac) 4. Concurrent Cisplatin/RT 09/13/09 - 10/15/09. Total RT dose 4500 cGy in 25 fx. 5. Shaheen template for brachytherapy with Dr. Vasquez, total dose 2250cGy in 5 fractions 10/27/09-10/29/09. 6. 04/29/2010 - Multiple cervical and vaginal biopsies, negative for recurrent disease 7. 06/10/2010 - Exploratory laparotomy, lysis of adhesions, bilateral pelvic lymphadenectomy. This case was done in conjunction with Dr. 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 8. 06/22/2011 - Exam under anesthesia with cystoscopy. This case was done in conjunction with Dr. Ernesto Burton, who performed exam under anesthesia, biopsies, and curettage of the right pubic ramus with irrigation. 9. 09/07/2011 - Total pelvic exenteration with ileal conduit (Dr. Strong), creation of neovagina (Dr. Polanco) and right pubic ramus biopsies (Dr. Burton). 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 All lymph nodes negative. 10. 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 S/P SBRT to RML (50 Gy in 5 fx from 01/18/2015-01/27/2015. 11. Palliative radiation to the trachea and right lung 10/09/16 to 10/30/16. EGD 11/2013: The examined esophagus was normal. The entire examined stomach was normal. Biopsies were taken with a cold forceps for histology. Estimated blood loss was minimal. The examined duodenum was normal. Biopsies were taken with a cold forceps for evaluation of celiac disease. Estimated blood loss was minimal. Impression: - Normal esophagus. - Normal stomach. Biopsied. - Normal examined duodenum. Biopsied. Colonoscopy 11/2013: The colon (entire examined portion) appeared normal. Impression: - The entire examined colon is normal. Recent CT Noncontrast CT scan of the chest demonstrating interval enlargement of a right middle lobe medial irregularly marginated soft tissue mass. There is subpleural fat deposition at the left lung base with 2 small nodules, the more medial slightly increased in size. There are also 2 diaphragmatic pleural-based nodules which may be stable. She had been undergoing dialysis for about a year. She underwent pelvic exoneration. She developed obstructive uropathy leading to end-stage renal disease. I received a brief note from her dial brusher indicating that the patient has been receiving maximum doses of Procrit and she has been running hemoglobin in the '. 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 S/P SBRT to RML (50 Gy in 5 fx from 01/18/2015-01/27/2015. Previous therapy: As above. 1) Radiation to trachea and right lung. 2) Taxol. Current therapy: 1) Neratinib. Presents for ongoing oncologic management. Interim history: She still having paroxysms of cough although these are not as frequent. Still having sputum production and occasional wheezing but on the whole Herb Registry status is stable to improved a little bit. She gets dyspneic walking to the mailbox. No chest pain or pressure. No symptoms of neuropathy. Tolerating Taxol well. No recent episodes of fever or shaking chills. PMH, medications and allergies personally reviewed by me today. Any changes documented in appropriate section. ROS: Constitutional: Denies episodes of night sweats. Neuro: Denies POND, vertigo and imbalance. HEENT: No recent change in voice, vision or hearing. CVS: Denies exertional chest pain, PND, orthopnea and LE edema. GI: Denies reflux and abdominal pain. No symptoms of stomatitis. : Still gets small amount of urine. Endo: No hot flashes. Derm: No rash. Heme: No unusual bleeding or bruising. Psych: Normal mood. PHYSICAL EXAM: Vitals: Blood pressure 138/57, pulse 102, temperature 36.5 ?C (97.7 ?F), weight 78 kg (172 lb). Well-appearing and in no acute distress. EYES: Sclerae are anicteric bilaterally. NECK: Supple. LYMPHATIC: There is no palpable cervical, supraclavicular adenopathy. RESPIRATORY: There is better air entry in the right upper and lower lung field. Still has diminished air entry in the right mid lung field. No wheezes appreciated today. There is resonance to percussion at the bases bilaterally. CARDIOVASCULAR: Rhythm is regular. ABDOMEN: The abdomen is nondistended. No tenderness. Extremities: Free of edema. SKIN: No jaundice or rash. No petechiae. 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 No focal motor weakness. 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 -ER/KS negative tumor. -She tolerated single agent Taxol symptomatically very well but required RBC transfusional support. 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 -Tolerating Taxol well. She appears to have had some clinical benefit in the last few weeks. Still has paroxysms of cough although not quite as bad. -Previously discussed advanced directives and healthcare power of contracts attorney. Plan: -Continue with cycle 2 tomorrow. -CT scan following this cycle. -Rx for Hycodan for further symptomatic control of cough. Eric Arteaga DO CNOVSP Observed: 10/09/2017 Status: COMPLETED Source: [place] 11:[address] [facility] REPOSITORY Visit (SP) Office ([place]) YUN NELSON ([id number]) 1960 F Date Time Provider Department 10/09/17 11:30 AM ERIC ARTEAGA During your visit today, we recorded the following information about you: Temperature Pulse Blood pressure Weight 97.7 degrees 102/minute 138/57 78 kg Tania Newman LPN, JESSICA 10/09/2017 11:42 AM Signed Est pt. Discuss recent labs, tx tomorrow Tania Newman, YARD SUPERVISOR [employer] Eric Arteaga, DO 10/09/2017 12:59 PM Signed Diagnoses: Cervical cancer and RCC. HPI: Underwent a left sided laparoscopic nephrectomy. The pathology demonstrated a T3 (7 cm) clear cell, renal cell carcinoma. Additionally, at the same time patient underwent a laparoscopic, left pelvic, lymph node dissection and right, periaortic, lymph node biopsy with lysis of adhesions. It appeared that the possible pelvic adenopathy visualized on a PET scan may have been due to a left sided hydrosalpinx and possibly enlarged left ovary. A one enlarged retroperitoneal lymph node was visualized, it was removed and it was found not to contain metastatic cancer. Previous therapy: 1. 04/29/2010 - multiple cervical and vaginal biopsies. 2. 08/17/2009 - Laparoscopic left pelvic lymph node dissection and right periaortic lymph node biopsies, lysis of adhesions. one enlarged retroperitoneal lymph node was visualized, it was removed and it was found not to contain metastatic cancer 3. 08/17/2009 - Laparoscopic left radical nephrectomy. The pathology demonstrated a T3 (7 cm) clear cell, renal cell carcinoma. (Dr Ac) 4. Concurrent Cisplatin/RT 09/13/09 - 10/15/09. Total RT dose 4500 cGy in 25 fx. 5. Shaheen template for brachytherapy with Dr. Vasquez, total dose 2250cGy in 5 fractions 10/27/09-10/29/09. 6. 04/29/2010 - Multiple cervical and vaginal biopsies, negative for recurrent disease 7. 06/10/2010 - Exploratory laparotomy, lysis of adhesions, bilateral pelvic lymphadenectomy. This case was done in conjunction with Dr. 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 8. 06/22/2011 - Exam under anesthesia with cystoscopy. This case was done in conjunction with Dr. Ernesto Burton, who performed exam under anesthesia, biopsies, and curettage of the right pubic ramus with irrigation. 9. 09/07/2011 - Total pelvic exenteration with ileal conduit (Dr. Strong), creation of neovagina (Dr. Polanco) and right pubic ramus biopsies (Dr. Burton). 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 All lymph nodes negative. 10. 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 S/P SBRT to RML (50 Gy in 5 fx from 01/18/2015-01/27/2015. 11. Palliative radiation to the trachea and right lung 10/09/16 to 10/30/16. EGD 11/2013: The examined esophagus was normal. The entire examined stomach was normal. Biopsies were taken with a cold forceps for histology. Estimated blood loss was minimal. The examined duodenum was normal. Biopsies were taken with a cold forceps for evaluation of celiac disease. Estimated blood loss was minimal. Impression: - Normal esophagus. - Normal stomach. Biopsied. - Normal examined duodenum. Biopsied. Colonoscopy 11/2013: The colon (entire examined portion) appeared normal. Impression: - The entire examined colon is normal. Recent CT Noncontrast CT scan of the chest demonstrating interval enlargement of a right middle lobe medial irregularly marginated soft tissue mass. There is subpleural fat deposition at the left lung base with 2 small nodules, the more medial slightly increased in size. There are also 2 diaphragmatic pleural-based nodules which may be stable. She had been undergoing dialysis for about a year. She underwent pelvic exoneration. She developed obstructive uropathy leading to end-stage renal disease. I received a brief note from her dial brusher indicating that the patient has been receiving maximum doses of Procrit and she has been running hemoglobin in the 's. 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 S/P SBRT to RML (50 Gy in 5 fx from 01/18/2015-01/27/2015. Previous therapy: As above. 1) Radiation to trachea and right lung. 2) Taxol. Current therapy: 1) Neratinib. Presents for ongoing oncologic management. Interim history: She still having paroxysms of cough although these are not as frequent. Still having sputum production and occasional wheezing but on the whole Herb Registry status is stable to improved a little bit. She gets dyspneic walking to the mailbox. No chest pain or pressure. No symptoms of neuropathy. Tolerating Taxol well. No recent episodes of fever or shaking chills. PMH, medications and allergies personally reviewed by me today. Any changes documented in appropriate section. ROS: Constitutional: Denies episodes of night sweats. Neuro: Denies POND, vertigo and imbalance. HEENT: No recent change in voice, vision or hearing. CVS: Denies exertional chest pain, PND, orthopnea and LE edema. GI: Denies reflux and abdominal pain. No symptoms of stomatitis. : Still gets small amount of urine. Endo: No hot flashes. Derm: No rash. Heme: No unusual bleeding or bruising. Psych: Normal mood. PHYSICAL EXAM: Vitals: Blood pressure 138/57, pulse 102, temperature 36.5 ?C (97.7 ?F), weight 78 kg (172 lb). Well-appearing and in no acute distress. EYES: Sclerae are anicteric bilaterally. NECK: Supple. LYMPHATIC: There is no palpable cervical, supraclavicular adenopathy. RESPIRATORY: There is better air entry in the right upper and lower lung field. Still has diminished air entry in the right mid lung field. No wheezes appreciated today. There is resonance to percussion at the bases bilaterally. CARDIOVASCULAR: Rhythm is regular. ABDOMEN: The abdomen is nondistended. No tenderness. Extremities: Free of edema. SKIN: No jaundice or rash. No petechiae. 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 No focal motor weakness. 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 -ER/KS negative tumor. -She tolerated single agent Taxol symptomatically very well but required RBC transfusional support. 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 -Tolerating Taxol well. She appears to have had some clinical benefit in the last few weeks. Still has paroxysms of cough although not quite as bad. -Previously discussed advanced directives and healthcare power of contracts attorney. Plan: -Continue with cycle 2 tomorrow. -CT scan following this cycle. -Rx for Hycodan for further symptomatic control of cough. Eric Arteaga DO Referring Provider: ERIC ARTEAGA [[id number]] Allergies As of Date: 10/09/2017 (No Known Allergies) Date Reviewed: 10/09/2017 Reviewed by: Tania Acharya (Solar Maintenance Technician) JESSICA Newman - Fully Assessed Reason for Visit: Established Patient [175] Primary Visit Diagnosis: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] Other Visit Diagnoses:Malignant neoplasm metastatic to right lung (HCC) [C78.01] Malignant neoplasm of unknown origin (HCC) [C80.1] Cough [R05] Order(s):CT CHEST W IVCON [[id number]] Order #: [id number] FUTURE iv contrast (will be provided with radiology test)CT Chest W -Inject, intravenously, once for 1 dose.No IV access, insert saline lock prior to the beginning of sedation, infusion, injection of imaging exam. Discontinue saline lock post exam. If Pt. has a central line or IVAD, may access for administration according to line specific nursing protocol. Once exam is complete flush line and de- access according to line specific nursing protocol in the CT contrast administration guidelines link.Disp: 1 EachRfl: 0 HYDROcodone-homatropine (HYDROMET) 5-1.5 mg/5 mL (5 mL) syrupTake 5 mL by mouth four times daily as needed for up to 7 days.Disp: 120 mLRfl: 0 Follow-up and Disposition History Recorded Prescriptions as of 10/09/2017 Sig: ALBUTEROL SULFATE 2.5 MG/3 ML* Use 3 mL via nebulizer every * DIPHENOXYLATE-ATROPINE 2.5 MG* Take 1-2 tablets by mouth pipo* ALBUTEROL SULFATE HFA 90 MCG/* Inhale 2 Puffs as instructed * ONDANSETRON HCL 8 MG TABLET Take 1 tablet by mouth every * LISINOPRIL 20 MG TABLET Take 1 tablet by mouth twice * ERGOCALCIFEROL (VITAMIN D2) 5* Take 1 capsule by mouth once * CLOBETASOL 0.05 % TOPICAL CRE* Apply 1 application to affect* FOLIC ACID 1 MG TABLET Take 1 tablet by mouth once d* STOOL SOFTENER 100 MG CAPSULE TAKE 1 CAPSULE TWICE A DAY AMLODIPINE 10 MG TABLET Take 10 mg by mouth once adolfo* FAMOTIDINE 20 MG TABLET Take 1 tablet by mouth twice * CALCIUM ACETATE 667 MG TABLET Take 667 mg by mouth three ti* VITAMIN B COMPLEX AND VITAMIN* Take 1 capsule by mouth once * ACETAMINOPHEN 325 MG TABLET Take 650 mg by mouth every 6 * IV CONTRAST (RADIOLOGY PROCED* CT Chest W -Inject, intraveno* HYDROCODONE-HOMATROPINE 5 MG-* Take 5 mL by mouth four times* NERATINIB 40 MG TABLET Take 6 tablets by mouth once * Patient not taking: Reported on 10/09/2017 Problem List As Of Date 10/09/2017 Noted Resolved Obesity [E66.9] INVALID FOR*09/13/2010 Pallor [R23.1] INVALID FOR*07/10/2009 LBP (low back pain) [M54.5] INVALID FOR*10/25/2012 Vomiting [R11.10] INVALID FOR*09/13/2010 Anemia due to blood loss [D50.0] INVALID FOR*12/27/2009 Dyspnea [R06.00] INVALID FOR*08/26/2009 Chest Pain [R07.9] INVALID FOR*08/26/2009 Cervix cancer [C53.9] INVALID FOR*10/25/2012 More... 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 Radiation cystitis [N30.40] INVALID FOR*10/25/2012 S/P ileal conduit [Z93.6] INVALID FOR*10/25/2012 SUMMARY [V999.95] INVALID FOR* Priority: A More... Progressively worsening kidney function [N18.9]INVALID FOR*04/03/2017 Priority: B More... Hx of cervical cancer [Z85.41] INVALID FOR* Priority: E More... H/o Renal cell cancer [C64.9] INVALID FOR* Priority: F More... DVT prophylaxis [VWE0464] INVALID FOR*11/02/2012 Priority: L More... DISPOSITION AND FOLLOW-UP [V999.01] INVALID FOR*11/02/2012 Priority: M More... Iron deficiency anemia [D50.9] INVALID FOR* Priority: C More... Euthyroid sick syndrome [E07.81] INVALID FOR* Priority: G More... Osteomyelitis [M86.9] INVALID FOR* Priority: D More... Renal failure [N19] INVALID FOR*04/03/2017 End stage renal disease (HCC) [N18.6] INVALID FOR*04/03/2017 Anemia [D64.9] Primary lung cancer with metastasis from lung t*INVALID FOR*09/22/2016 Right middle lobe pneumonia [J18.1] INVALID FOR* Chronic kidney disease, stage V (HCC) [N18.5] More... Cancer of trachea, bronchus, and lung (HCC) [C3*INVALID FOR* More... 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] INVALID FOR* Dialysis patient (HCC) [Z99.2] INVALID FOR* Essential hypertension with goal blood pressure*INVALID FOR* Primary lung cancer with metastasis from lung t*INVALID FOR* Diastolic dysfunction [I51.9] INVALID FOR* Mitral valve insufficiency [I34.0] INVALID FOR* Rash and nonspecific skin eruption [R21] INVALID FOR* Elevated TSH [R79.89] INVALID FOR* Dyspepsia [R10.13] INVALID FOR* ESRD on hemodialysis (HCC) [N18.6, Z99.2] INVALID FOR*04/03/2017 Anemia, chronic renal failure, stage 5 (HCC) [N*INVALID FOR* Acute on chronic diastolic congestive heart gisell*INVALID FOR* ESRD (end stage renal disease) on dialysis (HCC*INVALID FOR* Visit Notes: >> Tania Rosado) JESSICA Newman Oct 09, 2017 11:12 AM Status: Signed Est pt. Discuss recent labs, tx tomorrow Tania Newman LPN Encounter Status:Closed by ERIC ARTEAGA DO on 10/09/17 [facility] ABS GR + CBC Collected: 10/09/2017 Status: F Source: [place] 10:59 AM [facility] REPOSITORY TYPE CODE TESTS RESULT OUT OF REFERENCE UNITS RANGE LAB WWBC 3.70-11.00 k/uL [place] WBC 4.57 LAB WRBC 3.90-5.20 m/uL Low [facility] RBC 3.06 LAB WHGB 11.5-15.5 g/dL Low [place] Hemoglobin 8.2 LAB WHCT 36.0-46.0 % Low [facility] Hematocrit 26.5 LAB WMCV 80.0-100.0 fL [place] MCV 86.6 LAB WMCH 26.0-34.0 pg [place] MCH 26.8 LAB WMCHC 30.5-36.0 g/dL [place] MCHC 30.9 LAB WRDW 11.5-15.0 % [place] High RDW 16.6 LAB WPLT 150-400 k/uL [place] Platelet Cnt 151 LAB WMPV 9.0-12.7 fL [place] MPV 9.3 Result Comment: Test performed at: [facility], [address] [place] [address]. LAB ABGRAN 1.45-7.50 k/uL Absol Gran 3.51 Count HEPATIC FUNCTN PANEL Collected: 10/09/2017 Status: F Source: [place] 10:[address] [facility] REPOSITORY TYPE CODE TESTS RESULT OUT OF REFERENCE UNITS RANGE LAB ALB 3.9-4.9 g/dL Albumin 3.9 LAB TBIL 0.2-1.3 mg/dL Bilirubin, Total 0.3 LAB CBIL <0.2 mg/dL Bilirubin,Conjuga <0.2 jp LAB ALKP 32-117 U/L Alkaline Phosphatase 65 LAB AST 13-35 U/L AST 22 LAB ALT 7-38 U/L ALT 11 LAB TP 6.3-8.0 g/dL Protein, Total 7.3 Performed By: #### HFP #### [facility] [address] [place] [address] [facility] ABS GR + CBC Collected: 09/26/2017 Status: F Source: [place] 10:[address] [facility] REPOSITORY TYPE CODE TESTS RESULT OUT OF REFERENCE UNITS RANGE LAB WWBC 3.70-11.00 k/uL Low [place] WBC 3.51 LAB WRBC 3.90-5.20 m/uL Low [place] RBC 3.45 LAB WHGB 11.5-15.5 g/dL Low [place] Hemoglobin 9.1 LAB WHCT 36.0-46.0 % Low [place] Hematocrit 30.4 LAB WMCV 80.0-100.0 fL [place] MCV 88.1 LAB WMCH 26.0-34.0 pg [place] MCH 26.4 LAB WMCHC 30.5-36.0 g/dL Low [place] MCHC 29.9 LAB WRDW 11.5-15.0 % [place] High RDW 17.1 LAB WPLT 150-400 k/uL Low [place] Platelet Cnt 142 LAB WMPV 9.0-12.7 fL Low [place] MPV 8.7 Result Comment: Test performed at: [facility], [address] [place] [address]. LAB ABGRAN 1.45-7.50 k/uL Absol 2.48 Gran Count LAB ABSNUC <0.01 k/uL Absolute nRBC Result checked and verified [facility] ABS GR + CBC Collected: 09/19/2017 Status: F Source: [place] 8:[address] [facility] REPOSITORY TYPE CODE TESTS RESULT OUT OF REFERENCE UNITS RANGE LAB WWBC 3.70-11.00 k/uL [place] WBC 4.19 LAB WRBC 3.90-5.20 m/uL [place] RBC 4.03 LAB WHGB 11.5-15.5 g/dL Low [place] Hemoglobin 10.6 LAB WHCT 36.0-46.0 % Low [place] Hematocrit 35.0 LAB WMCV 80.0-100.0 fL [place] MCV 86.8 LAB WMCH 26.0-34.0 pg [place] MCH 26.3 LAB WMCHC 30.5-36.0 g/dL Low [place] MCHC 30.3 LAB WRDW 11.5-15.0 % [place] High RDW 16.7 LAB WPLT 150-400 k/uL [place] Platelet Cnt 193 LAB WMPV 9.0-12.7 fL [place] MPV 9.1 Result Comment: Test performed at: [facility], [address] [place] [address] Rd[address] [place] [address]. LAB ABGRAN 1.45-7.50 k/uL Absol Gran 3.00 Count [facility] ABS GR + CBC Collected: 09/12/2017 Status: F Source: [place] 10:[address] [facility] REPOSITORY TYPE CODE TESTS RESULT OUT OF REFERENCE UNITS RANGE LAB WWBC 3.70-11.00 k/uL [place] WBC 5.09 LAB WRBC 3.90-5.20 m/uL Low [place] RBC 3.86 LAB WHGB 11.5-15.5 g/dL Low [place] Hemoglobin 9.9 LAB WHCT 36.0-46.0 % Low [place] Hematocrit 34.4 LAB WMCV 80.0-100.0 fL [place] MCV 89.1 LAB WMCH 26.0-34.0 pg Low [place] MCH 25.6 LAB WMCHC 30.5-36.0 g/dL Low [place] MCHC 28.8 LAB WRDW 11.5-15.0 % [place] High RDW 16.7 LAB WPLT 150-400 k/uL [place] Platelet Cnt 194 LAB WMPV 9.0-12.7 fL Low [place] MPV 8.6 Result Comment: Test performed at: [facility], [address] [place] [address]. LAB ABGRAN 1.45-7.50 k/uL Absol Gran 3.86 Count CNNURSE Observed: 09/05/2017 Status: COMPLETED Source: [place] 4:[address] [facility] REPOSITORY Nurse Visit (CAWSTR) YUN NELSON ([id number]) 1960 F Date Time Provider Department 09/05/17 4:15 PM [facility] During your visit today, we recorded the following information about you: Alissa Rich MA 09/07/2017 4:55 PM Signed Completed EKG, Gave to Dr Matos for review. Alissa Rich MA Referring Provider: PHANI MATOS [[id number]] Allergies As of Date: 09/05/2017 (No Known Allergies) Date Reviewed: 09/05/2017 Reviewed by: Alissa Rich MA - Fully Assessed Reason for Visit: Allied Health Visit [5] Visit Diagnosis:ASHD (arteriosclerotic heart disease) [I25.10] Order(s):ECG COMPLETE W INTERPRETATION [ECG01] Order #: [id number] Prescriptions as of 09/05/2017 Sig: LEVOFLOXACIN 500 MG TABLET Take 0.5 tablets by mouth pipo* ALBUTEROL SULFATE 2.5 MG/3 ML* Use 3 mL via nebulizer every * DIPHENOXYLATE-ATROPINE 2.5 MG* Take 1-2 tablets by mouth pipo* ALBUTEROL SULFATE HFA 90 MCG/* Inhale 2 Puffs as instructed * NERATINIB 40 MG TABLET Take 6 tablets by mouth once * ONDANSETRON HCL 8 MG TABLET Take 1 tablet by mouth every * LISINOPRIL 20 MG TABLET Take 1 tablet by mouth twice * ERGOCALCIFEROL (VITAMIN D2) 5* Take 1 capsule by mouth once * CLOBETASOL 0.05 % TOPICAL CRE* Apply 1 application to affect* FOLIC ACID 1 MG TABLET Take 1 tablet by mouth once d* STOOL SOFTENER 100 MG CAPSULE TAKE 1 CAPSULE TWICE A DAY AMLODIPINE 10 MG TABLET Take 10 mg by mouth once adolfo* FAMOTIDINE 20 MG TABLET Take 1 tablet by mouth twice * CALCIUM ACETATE 667 MG TABLET Take 667 mg by mouth three ti* VITAMIN B COMPLEX AND VITAMIN* Take 1 capsule by mouth once * ACETAMINOPHEN 325 MG TABLET Take 650 mg by mouth every 6 * Problem List As Of Date 09/05/2017 Noted Resolved Obesity [E66.9] INVALID FOR*09/13/2010 Pallor [R23.1] INVALID FOR*07/10/2009 LBP (low back pain) [M54.5] INVALID FOR*10/25/2012 Vomiting [R11.10] INVALID FOR*09/13/2010 Anemia due to blood loss [D50.0] INVALID FOR*12/27/2009 Dyspnea [R06.00] INVALID FOR*08/26/2009 Chest Pain [R07.9] INVALID FOR*08/26/2009 Cervix cancer [C53.9] INVALID FOR*10/25/2012 More... 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 Radiation cystitis [N30.40] INVALID FOR*10/25/2012 S/P ileal conduit [Z93.6] INVALID FOR*10/25/2012 SUMMARY [V999.95] INVALID FOR* Priority: A More... Progressively worsening kidney function [N18.9]INVALID FOR*04/03/2017 Priority: B More... Hx of cervical cancer [Z85.41] INVALID FOR* Priority: E More... H/o Renal cell cancer [C64.9] INVALID FOR* Priority: F More... DVT prophylaxis [WLN1894] INVALID FOR*11/02/2012 Priority: L More... DISPOSITION AND FOLLOW-UP [V999.01] INVALID FOR*11/02/2012 Priority: M More... Iron deficiency anemia [D50.9] INVALID FOR* Priority: C More... Euthyroid sick syndrome [E07.81] INVALID FOR* Priority: G More... Osteomyelitis [M86.9] INVALID FOR* Priority: D More... Renal failure [N19] INVALID FOR*04/03/2017 End stage renal disease (HCC) [N18.6] INVALID FOR*04/03/2017 Anemia [D64.9] Primary lung cancer with metastasis from lung t*INVALID FOR*09/22/2016 Right middle lobe pneumonia [J18.1] INVALID FOR* Chronic kidney disease, stage V (HCC) [N18.5] More... Cancer of trachea, bronchus, and lung (HCC) [C3*INVALID FOR* More... 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] INVALID FOR* Dialysis patient (HCC) [Z99.2] INVALID FOR* Essential hypertension with goal blood pressure*INVALID FOR* Primary lung cancer with metastasis from lung t*INVALID FOR* Diastolic dysfunction [I51.9] INVALID FOR* Mitral valve insufficiency [I34.0] INVALID FOR* Rash and nonspecific skin eruption [R21] INVALID FOR* Elevated TSH [R79.89] INVALID FOR* Dyspepsia [R10.13] INVALID FOR* ESRD on hemodialysis (HCC) [N18.6, Z99.2] INVALID FOR*04/03/2017 Anemia, chronic renal failure, stage 5 (HCC) [N*INVALID FOR* Acute on chronic diastolic congestive heart gisell*INVALID FOR* ESRD (end stage renal disease) on dialysis (HCC*INVALID FOR* Visit Notes: >> Alissa Rich MA SunSep 07, 2017 4:54 PM Status: Signed Completed EKG, Gave to Dr Matos for review. Alissa Hilario SULLIVAN Encounter Status:Closed by ALISSA RICH MA on 09/07/17 PROGRESS Observed: 09/05/2017 Status: COMPLETED Source: [place] 11:[address] [facility] REPOSITORY HNO ID: [id number] Author: Phani Matos Service: (none) Author Type: Physician Type: Progress Notes Filed: 09/05/2017 5:55 PM Note Text: PERTINENT CARDIAC HISTORY HTN HL Right subclavian AV fistula? Tobaccoism Mitral insufficiency - moderate CRF - hemodialysis ADHERENCE TO GUIDELINES COCO-I or ARB for HF with prior LVEF<40 (NQF 0081) - N/A ASA or Plavix for ASHD (NQF 0067) - N/A Beta marycruz for ASHD with prior PA or prior LVEF<40 (NQF 0070) - N/A Beta marycruz for HF with prior LVEF<40 (NQF 0083) - N/A COCO-I or ARB for ASHD with DM or prior LVEF<40 (NQF 0066) - N/A Statin therapy for ASHD or FHL or DM - N/A BMI documented and plan if >25 (NQF 0421) - lifestyle recommendation form Tobacco use screening and referral (NQF 0028) - lifestyle recommendation form Recommendation for whole food, plant based diet - lifestyle recommendation form CLINICAL IMPRESSION/PLAN: Yun Nelson is doing well. Her blood pressure is adequately controlled. Mitral insufficiency is moderate and well compensated. She has been advised to continue her current medication. If necessary, lisinopril could be increased for better control of pressure. I will see her in 6 months or as needed Written and verbal health teaching given to patient, patient verbalizes understanding and agrees with treatment plan. DIAGNOSIS FOR VISIT: Hypertension Mitral insufficiency HISTORY OF PRESENT ILLNESS Yun Nelson returns for follow-up of her hypertension and valvular heart disease. She reports that dialysis is going well. They have not had any problems with the fistula flow rates. She denies chest pain. Exercise tolerance has been limited, but stable. She has had no edema, syncope, palpitations, TIAs, amaurosis or claudication. She is trying to avoid secondhand smoke. ALLERGIES: ALLERGIES No Known Allergies CURRENT OUTPATIENT MEDICATIONS: levoFLOXacin (LEVAQUIN) 500 mg tablet Take 0.5 tablets by mouth every 48 hours. albuterol (PROVENTIL) 2.5 mg /3 mL (0.083 %) nebulizer solution Use 3 mL via nebulizer every 2 hours as needed for Wheezing/Shortness of Breath. Use over 5-15minutes. diphenoxylate-atropine (LOMOTIL) 2.5-0.025 mg per tablet Take 1-2 tablets by mouth every 6 hours as needed for Diarrhea for up to 14 days. albuterol HFA (PROAIR HFA) 90 mcg/actuation inhaler Inhale 2 Puffs as instructed every 4 hours as needed. neratinib 40 mg tab Take 6 tablets by mouth once daily. ondansetron (ZOFRAN) 8 mg tablet Take 1 tablet by mouth every 8 hours as needed for Nausea/Vomiting. lisinopril (ZESTRIL, PRINIVIL) 20 mg tablet Take 1 tablet by mouth twice daily. ergocalciferol, vitamin D2, (DRISDOL) 50,000 unit capsule Take 1 capsule by mouth once each week. Once weekly clobetasol (TEMOVATE) 0.05 % cream Apply 1 application to affected area twice daily. As needed for rash on arms folic acid 1 mg tablet Take 1 tablet by mouth once daily. STOOL SOFTENER 100 mg capsule TAKE 1 CAPSULE TWICE A DAY amLODIPine (NORVASC) 10 mg tablet Take 10 mg by mouth once daily. famotidine (PEPCID) 20 mg tablet Take 1 tablet by mouth twice daily as needed (stomach upset). calcium acetate 667 mg tab Take 667 mg by mouth three times daily. b complex, c, folic acid 1 mg renal vitamins (TRIPHROCAPS) 1 mg capsule Take 1 capsule by mouth once daily. acetaminophen (TYLENOL) 325 mg tablet Take 650 mg by mouth every 6 hours as needed. PHYSICAL EXAMINATION: VITAL SIGNS: BP 145/76 Pulse 93 Ht 5' 1 (1.55m) Wt 181 lb 14.4 oz (82.5kg) BMI 34.39 kg/(m2). Chest: Clear to percussion and auscultation. Trachea is midline. Air entry is equal. Cardiac: Regular rhythm. S1 and S2 are normal. PMI is nondisplaced. There is a soft murmur of mitral insufficiency. Carotids are brisk with soft bilateral bruits. There is a loud continuous bruit in the right subclavian area. JVP is less than 10 cm. Abdomen: Soft and nontender. There are no pulsatile masses or bruits. No liver enlargement. Bowel sounds are active. Extremities: Trace edema. Pulses are intact and symmetrical. EKG shows sinus rhythm and is within normal limits. There is no change from 09/18/16. Echocardiogram was reviewed. LV function is well-preserved. Carotid Doppler exam showed evidence of a high flow volume in the dialysis fistula. There was no other evidence of abnormal AV fistulas. Labs are followed in dialysis Electronically Signed: Phani Matos MD September 05, 2017 11:45 AM CC: DO AKASH Toussaint Observed: 09/05/2017 Status: COMPLETED Source: [place] 11:[address] [facility] REPOSITORY Office Visit (CAWSTR) YUN NELSON ([id number]) 1960 F Date Time Provider Department 09/05/17 11:30 AM PHANI MATOSWSTR During your visit today, we recorded the following information about you: Pulse Blood pressure Weight Height 93/minute 145/76 82.5 kg 1.549 m Phani Matos MD 09/05/2017 5:55 PM Signed PERTINENT CARDIAC HISTORY HTN HL Right subclavian AV fistula? Tobaccoism Mitral insufficiency - moderate CRF - hemodialysis ADHERENCE TO GUIDELINES COCO-I or ARB for HF with prior LVEF<40 (NQF 0081) - N/A ASA or Plavix for ASHD (NQF 0067) - N/A Beta marycruz for ASHD with prior PA or prior LVEF<40 (NQF 0070) - N/A Beta marycruz for HF with prior LVEF<40 (NQF 0083) - N/A COCO-I or ARB for ASHD with DM or prior LVEF<40 (NQF 0066) - N/A Statin therapy for ASHD or FHL or DM - N/A BMI documented and plan if >25 (NQF 0421) - lifestyle recommendation form Tobacco use screening and referral (NQ 0028) - lifestyle recommendation form Recommendation for whole food, plant based diet - lifestyle recommendation form CLINICAL IMPRESSION/PLAN: Yun Nelson is doing well. Her blood pressure is adequately controlled. Mitral insufficiency is moderate and well compensated. She has been advised to continue her current medication. If necessary, lisinopril could be increased for better control of pressure. I will see her in 6 months or as needed Written and verbal health teaching given to patient, patient verbalizes understanding and agrees with treatment plan. DIAGNOSIS FOR VISIT: Hypertension Mitral insufficiency HISTORY OF PRESENT ILLNESS Yun Nelson returns for follow-up of her hypertension and valvular heart disease. She reports that dialysis is going well. They have not had any problems with the fistula flow rates. She denies chest pain. Exercise tolerance has been limited, but stable. She has had no edema, syncope, palpitations, TIAs, amaurosis or claudication. She is trying to avoid secondhand smoke. ALLERGIES: ALLERGIES No Known Allergies CURRENT OUTPATIENT MEDICATIONS: levoFLOXacin (LEVAQUIN) 500 mg tablet Take 0.5 tablets by mouth every 48 hours. albuterol (PROVENTIL) 2.5 mg /3 mL (0.083 %) nebulizer solution Use 3 mL via nebulizer every 2 hours as needed for Wheezing/Shortness of Breath. Use over 5-15minutes. diphenoxylate-atropine (LOMOTIL) 2.5-0.025 mg per tablet Take 1-2 tablets by mouth every 6 hours as needed for Diarrhea for up to 14 days. albuterol HFA (PROAIR HFA) 90 mcg/actuation inhaler Inhale 2 Puffs as instructed every 4 hours as needed. neratinib 40 mg tab Take 6 tablets by mouth once daily. ondansetron (ZOFRAN) 8 mg tablet Take 1 tablet by mouth every 8 hours as needed for Nausea/Vomiting. lisinopril (ZESTRIL, PRINIVIL) 20 mg tablet Take 1 tablet by mouth twice daily. ergocalciferol, vitamin D2, (DRISDOL) 50,000 unit capsule Take 1 capsule by mouth once each week. Once weekly clobetasol (TEMOVATE) 0.05 % cream Apply 1 application to affected area twice daily. As needed for rash on arms folic acid 1 mg tablet Take 1 tablet by mouth once daily. STOOL SOFTENER 100 mg capsule TAKE 1 CAPSULE TWICE A DAY amLODIPine (NORVASC) 10 mg tablet Take 10 mg by mouth once daily. famotidine (PEPCID) 20 mg tablet Take 1 tablet by mouth twice daily as needed (stomach upset). calcium acetate 667 mg tab Take 667 mg by mouth three times daily. b complex, c, folic acid 1 mg renal vitamins (TRIPHROCAPS) 1 mg capsule Take 1 capsule by mouth once daily. acetaminophen (TYLENOL) 325 mg tablet Take 650 mg by mouth every 6 hours as needed. PHYSICAL EXAMINATION: VITAL SIGNS: BP 145/76 Pulse 93 Ht 5' 1 (1.55m) Wt 181 lb 14.4 oz (82.5kg) BMI 34.39 kg/(m2). Chest: Clear to percussion and auscultation. Trachea is midline. Air entry is equal. Cardiac: Regular rhythm. S1 and S2 are normal. PMI is nondisplaced. There is a soft murmur of mitral insufficiency. Carotids are brisk with soft bilateral bruits. There is a loud continuous bruit in the right subclavian area. JVP is less than 10 cm. Abdomen: Soft and nontender. There are no pulsatile masses or bruits. No liver enlargement. Bowel sounds are active. Extremities: Trace edema. Pulses are intact and symmetrical. EKG shows sinus rhythm and is within normal limits. There is no change from 09/18/16. Echocardiogram was reviewed. LV function is well-preserved. Carotid Doppler exam showed evidence of a high flow volume in the dialysis fistula. There was no other evidence of abnormal AV fistulas. Labs are followed in dialysis Electronically Signed: Phani Matos MD September 05, 2017 11:45 AM CC: DO Phani Toussaintfer, MD 09/05/2017 11:46 AM Signed LIFESTYLE CHANGE A healthy lifestyle is the most important component of your overall treatment plan. Please give serious thought to the following areas and commit to making group home changes. EAT A WHOLE FOOD, PLANT BASED DIET The nutrition your body gets is more important than the medicine you take. What matters most is the overall way you eat. We encourage you to minimize the use of animal products (which include dairy and all meats except fatty fish) and use whole, unprocessed plant foods to provide your protein, vitamins and other nutrients. We have a lot of information to share with you on this topic. This is not a diet. It is a way of life that you will keep with you. EXERCISE REGULARLY It is not important to spend hours in the gym, lifting weights and perspiring heavily. A total of 2-3 hours per week of aerobic (causing you to be moderately short of breath) exercise is sufficient to improve your health. Talk to us before you begin a new exercise program, if you have heart disease or experience shortness of breath or chest pain. REDUCE STRESS Chronic emotional and physical stress leads to disease. Ways of reducing stress include meditation, visualization, prayer, yoga and other forms of relaxation therapy. Consistency is the patton. Find a technique that works for you and do it every day. CULTIVATE RELATIONSHIPS Loneliness and isolation have a major negative impact on health. Seek out others who can love, care for and nurture you. Avoid hurtful relationships. MAINTAIN IDEAL BODY WEIGHT The best way to do this is to do all the things above. Our bodies naturally find the right weight if we keep moving and feed ourselves the right food. If your BMI is greater than 25, we strongly recommend a referral to a weight management program. Please speak to us or your family physician about available programs. AVOID NICOTINE IN ALL FORMS This includes all tobacco products, whether chewed, smoked, vaped, or rubbed on the skin. Smoking cessation programs, which can make use of tobacco substitutes, medications to suppress cravings and behavior management, are available. Please contact your family physician about programs in your area. Referring Provider: PHANI MATOS [[id number]] Allergies As of Date: 09/05/2017 (No Known Allergies) Date Reviewed: 09/05/2017 Reviewed by: Alissa Rich MA - Fully Assessed Primary Visit Diagnosis:Non-rheumatic mitral regurgitation [I34.0] Other Visit Diagnosis:Hypertension, essential [I10] Prescriptions as of 09/05/2017 Sig: LEVOFLOXACIN 500 MG TABLET Take 0.5 tablets by mouth pipo* ALBUTEROL SULFATE 2.5 MG/3 ML* Use 3 mL via nebulizer every * DIPHENOXYLATE-ATROPINE 2.5 MG* Take 1-2 tablets by mouth pipo* ALBUTEROL SULFATE HFA 90 MCG/* Inhale 2 Puffs as instructed * NERATINIB 40 MG TABLET Take 6 tablets by mouth once * ONDANSETRON HCL 8 MG TABLET Take 1 tablet by mouth every * LISINOPRIL 20 MG TABLET Take 1 tablet by mouth twice * ERGOCALCIFEROL (VITAMIN D2) 5* Take 1 capsule by mouth once * CLOBETASOL 0.05 % TOPICAL CRE* Apply 1 application to affect* FOLIC ACID 1 MG TABLET Take 1 tablet by mouth once d* STOOL SOFTENER 100 MG CAPSULE TAKE 1 CAPSULE TWICE A DAY AMLODIPINE 10 MG TABLET Take 10 mg by mouth once adolfo* FAMOTIDINE 20 MG TABLET Take 1 tablet by mouth twice * CALCIUM ACETATE 667 MG TABLET Take 667 mg by mouth three ti* VITAMIN B COMPLEX AND VITAMIN* Take 1 capsule by mouth once * ACETAMINOPHEN 325 MG TABLET Take 650 mg by mouth every 6 * Problem List As Of Date 09/05/2017 Noted Resolved Obesity [E66.9] INVALID FOR*09/13/2010 Pallor [R23.1] INVALID FOR*07/10/2009 LBP (low back pain) [M54.5] INVALID FOR*10/25/2012 Vomiting [R11.10] INVALID FOR*09/13/2010 Anemia due to blood loss [D50.0] INVALID FOR*12/27/2009 Dyspnea [R06.00] INVALID FOR*08/26/2009 Chest Pain [R07.9] INVALID FOR*08/26/2009 Cervix cancer [C53.9] INVALID FOR*10/25/2012 More... 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 Radiation cystitis [N30.40] INVALID FOR*10/25/2012 S/P ileal conduit [Z93.6] INVALID FOR*10/25/2012 SUMMARY [V999.95] INVALID FOR* Priority: A More... Progressively worsening kidney function [N18.9]INVALID FOR*04/03/2017 Priority: B More... Hx of cervical cancer [Z85.41] INVALID FOR* Priority: E More... H/o Renal cell cancer [C64.9] INVALID FOR* Priority: F More... DVT prophylaxis [IUE7433] INVALID FOR*11/02/2012 Priority: L More... DISPOSITION AND FOLLOW-UP [V999.01] INVALID FOR*11/02/2012 Priority: M More... Iron deficiency anemia [D50.9] INVALID FOR* Priority: C More... Euthyroid sick syndrome [E07.81] INVALID FOR* Priority: G More... Osteomyelitis [M86.9] INVALID FOR* Priority: D More... Renal failure [N19] INVALID FOR*04/03/2017 End stage renal disease (HCC) [N18.6] INVALID FOR*04/03/2017 Anemia [D64.9] Primary lung cancer with metastasis from lung t*INVALID FOR*09/22/2016 Right middle lobe pneumonia [J18.1] INVALID FOR* Chronic kidney disease, stage V (HCC) [N18.5] More... Cancer of trachea, bronchus, and lung (HCC) [C3*INVALID FOR* More... 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] INVALID FOR* Dialysis patient (HCC) [Z99.2] INVALID FOR* Essential hypertension with goal blood pressure*INVALID FOR* Primary lung cancer with metastasis from lung t*INVALID FOR* Diastolic dysfunction [I51.9] INVALID FOR* Mitral valve insufficiency [I34.0] INVALID FOR* Rash and nonspecific skin eruption [R21] INVALID FOR* Elevated TSH [R79.89] INVALID FOR* Dyspepsia [R10.13] INVALID FOR* ESRD on hemodialysis (HCC) [N18.6, Z99.2] INVALID FOR*04/03/2017 Anemia, chronic renal failure, stage 5 (HCC) [N*INVALID FOR* Acute on chronic diastolic congestive heart gisell*INVALID FOR* ESRD (end stage renal disease) on dialysis (HCC*INVALID FOR* Other instructions from your clinician: LIFESTYLE CHANGE A healthy lifestyle is the most important component of your overall treatment plan. Please give serious thought to the following areas and commit to making group home changes. EAT A WHOLE FOOD, PLANT BASED DIET The nutrition your body gets is more important than the medicine you take. What matters most is the overall way you eat. We encourage you to minimize the use of animal products (which include dairy and all meats except fatty fish) and use whole, unprocessed plant foods to provide your protein, vitamins and other nutrients. We have a lot of information to share with you on this topic. This is not a diet. It is a way of life that you will keep with you. EXERCISE REGULARLY It is not important to spend hours in the gym, lifting weights and perspiring heavily. A total of 2-3 hours per week of aerobic (causing you to be moderately short of breath) exercise is sufficient to improve your health. Talk to us before you begin a new exercise program, if you have heart disease or experience shortness of breath or chest pain. REDUCE STRESS Chronic emotional and physical stress leads to disease. Ways of reducing stress include meditation, visualization, prayer, yoga and other forms of relaxation therapy. Consistency is the patton. Find a technique that works for you and do it every day. CULTIVATE RELATIONSHIPS Loneliness and isolation have a major negative impact on health. Seek out others who can love, care for and nurture you. Avoid hurtful relationships. MAINTAIN IDEAL BODY WEIGHT The best way to do this is to do all the things above. Our bodies naturally find the right weight if we keep moving and feed ourselves the right food. If your BMI is greater than 25, we strongly recommend a referral to a weight management program. Please speak to us or your family physician about available programs. AVOID NICOTINE IN ALL FORMS This includes all tobacco products, whether chewed, smoked, vaped, or rubbed on the skin. Smoking cessation programs, which can make use of tobacco substitutes, medications to suppress cravings and behavior management, are available. Please contact your family physician about programs in your area. Encounter Status:Closed by PHANI MATOS MD on 09/05/17 EKG1 Observed: 09/05/2017 Status: F Source: [place] 11:[address] [facility] REPOSITORY NAME : YUN NELSON PID : [id number] : 1960 Gender : Female Race : ORD : Procedure Date : Sep 05 2017 11:20:57 Edit Date : Sep 06 2017 08:40:46 Diagnosis:NORMAL SINUS RHYTHM NORMAL ECG Confirmed by PHANI MATOS MD ([id number]) on 09/06/2017 8:40:41 AM Ventricular Rate : 97 BPM Atrial Rate : 97 BPM P-R Interval : 162 ms QRS Duration : 86 ms Q-T Interval : 370 ms QTC Calculation(Bezet) : 469 ms P En[place] : 37 degrees R Enola : 62 degrees T En[place] : 40 degrees Test Reason : Location : 136 : [facility] Overread By : PHANI MATOS MD Edited By : PHANI MATOS MD Referred By : CARLO Acquired by : JEREMY FARRELL CHEST 2V FRONTAL/LAT Observed: 09/05/2017 Status: F Source: [place] 11:[address] [facility] REPOSITORY * * *Final Report* * * DATE OF EXAM: Sep 05 2017 11:18AM [id number] [id number] - XR CHEST 2V FRONTAL/LAT / PROCEDURE REASON: multiple diagnoses * * * * Physician Interpretation * * * * EXAMINATION: CHEST RADIOGRAPH (2 VIEW FRONTAL and LATERAL) Clinical History: Malignant neoplasm of endocervix Secondary malignant neoplasm of right lung MQ: [id number]_5 Comparison: CT chest 07/18/2017 RESULT: Lines, tubes, and devices: None. Lungs and pleura: There is a right hilar mass. As noted on the prior CT scan there is right-sided perihilar airspace disease. There is a small right pleural effusion. There is no acute airspace disease on the left. Cardiomediastinal silhouette: Normal cardiomediastinal silhouette. Other: . IMPRESSION: As noted on the recent CT chest there is a right hilar mass and right perihilar airspace disease. There is a small right pleural effusion. Solar Maintenance Technician: ISAEL Transcribe Date/Time: Sep 05 2017 5:57P Dictated by : PETTY WINTERS MD This examination was interpreted and the report reviewed and electronically signed by: PETTY WINTERS MD on Sep 05 2017 5:59PM EST [id number] Observed: 09/05/2017 Status: COMPLETED Source: [place] 11:[address] [facility] REPOSITORY HNO ID: [id number] Author: Ana Nogueira (Rt) Kathie Le Service: (none) Author Type: Weapons Engineer Type: Progress Notes Filed: 09/05/2017 11:18 AM Note Text: Radiology Service Progress Note PATIENT NAME: Yun Nelson DATE OF SERVICE: September 05, 2017 TIME: 11:05 AM PATIENT IDENTITY VERIFICATION COMPLETED USING TWO (2) METHODS: Patient confirmed name verbally and Date of . PATIENT GENDER DATA: Female. status: : No status: NO. PATIENT RELEVANT IMPLANT DATA REVIEWED: Not Applicable RADIOLOGY DEPARTMENT: General X-ray: Exam(s) Completed: Chest X-Ray PERIPHERAL IV DATA: Not applicable SIGNED BY: RT Naila September 05, 2017 11:05 AM PROGRESS Observed: 09/05/2017 Status: COMPLETED Source: [place] 10:[address] [facility] REPOSITORY HNO ID: [id number] Author: Eric Arteaga Service: (none) Author Type: Physician Type: Progress Notes Filed: 09/05/2017 11:04 AM Note Text: Diagnoses: Cervical cancer and RCC. HPI: Underwent a left sided laparoscopic nephrectomy. The pathology demonstrated a T3 (7 cm) clear cell, renal cell carcinoma. Additionally, at the same time patient underwent a laparoscopic, left pelvic, lymph node dissection and right, periaortic, lymph node biopsy with lysis of adhesions. It appeared that the possible pelvic adenopathy visualized on a PET scan may have been due to a left sided hydrosalpinx and possibly enlarged left ovary. A one enlarged retroperitoneal lymph node was visualized, it was removed and it was found not to contain metastatic cancer. Previous therapy: 1. 04/29/2010 - multiple cervical and vaginal biopsies. 2. 08/17/2009 - Laparoscopic left pelvic lymph node dissection and right periaortic lymph node biopsies, lysis of adhesions. one enlarged retroperitoneal lymph node was visualized, it was removed and it was found not to contain metastatic cancer 3. 08/17/2009 - Laparoscopic left radical nephrectomy. The pathology demonstrated a T3 (7 cm) clear cell, renal cell carcinoma. (Dr Ac) 4. Concurrent Cisplatin/RT 09/13/09 - 10/15/09. Total RT dose 4500 cGy in 25 fx. 5. Shaheen template for brachytherapy with Dr. Vasquez, total dose 2250cGy in 5 fractions 10/27/09-10/29/09. 6. 04/29/2010 - Multiple cervical and vaginal biopsies, negative for recurrent disease 7. 06/10/2010 - Exploratory laparotomy, lysis of adhesions, bilateral pelvic lymphadenectomy. This case was done in conjunction with Dr. 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 8. 06/22/2011 - Exam under anesthesia with cystoscopy. This case was done in conjunction with Dr. Ernesto Burton, who performed exam under anesthesia, biopsies, and curettage of the right pubic ramus with irrigation. 9. 09/07/2011 - Total pelvic exenteration with ileal conduit (Dr. Strong), creation of neovagina (Dr. Polanco) and right pubic ramus biopsies (Dr. Burton). 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 All lymph nodes negative. 10. 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 S/P SBRT to RML (50 Gy in 5 fx from 01/18/2015-01/27/2015. 11. Palliative radiation to the trachea and right lung 10/09/16 to 10/30/16. EGD 11/2013: The examined esophagus was normal. The entire examined stomach was normal. Biopsies were taken with a cold forceps for histology. Estimated blood loss was minimal. The examined duodenum was normal. Biopsies were taken with a cold forceps for evaluation of celiac disease. Estimated blood loss was minimal. Impression: - Normal esophagus. - Normal stomach. Biopsied. - Normal examined duodenum. Biopsied. Colonoscopy 11/2013: The colon (entire examined portion) appeared normal. Impression: - The entire examined colon is normal. Recent CT Noncontrast CT scan of the chest demonstrating interval enlargement of a right middle lobe medial irregularly marginated soft tissue mass. There is subpleural fat deposition at the left lung base with 2 small nodules, the more medial slightly increased in size. There are also 2 diaphragmatic pleural-based nodules which may be stable. She had been undergoing dialysis for about a year. She underwent pelvic exoneration. She developed obstructive uropathy leading to end-stage renal disease. I received a brief note from her dial brusher indicating that the patient has been receiving maximum doses of Procrit and she has been running hemoglobin in the 's. 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 S/P SBRT to RML (50 Gy in 5 fx from 01/18/2015-01/27/2015. Previous therapy: As above. 1) Radiation to trachea and right lung. 2) Taxol. Current therapy: 1) Neratinib. Presents for ongoing oncologic management. Interim history: She has complaint today is continued, aggravating cough. Typically the cough is triggered by activity or taking a deep breath. She didn't using her metered-dose inhaler. She also uses her oxygen at nighttime. He hasn't been running any fevers. She gets more short of breath now with exertion. She didn't go back on neratinib after her last office visit. She thought if the cough will get better than she would restart the drug. She missed dialysis yesterday because she said she didn't feel well. Her appetite is been doing fair. PMH, medications and allergies personally reviewed by me today. Any changes documented in appropriate section. ROS: Constitutional: Denies episodes of night sweats. Neuro: Denies POND, vertigo and imbalance. HEENT: No recent change in voice, vision or hearing. CVS: Denies exertional chest pain, PND, orthopnea and LE edema. GI: Denies reflux and abdominal pain. No symptoms of stomatitis. : Still gets small amount of urine. Endo: No hot flashes. Derm: No rash. Heme: No unusual bleeding or bruising. Psych: Normal mood. PHYSICAL EXAM: Vitals: Blood pressure 178/79, pulse 92, temperature 36.5 ?C (97.7 ?F), temperature source Temporal Artery, weight 82.3 kg (181 lb 8 oz), SpO2 95 %. Well-appearing and in no acute distress. EYES: Sclerae are anicteric bilaterally. NECK: Supple. LYMPHATIC: There is no palpable cervical, supraclavicular adenopathy. RESPIRATORY: There is better air entry in the right upper and lower lung field. Still has diminished air entry in the right mid lung field. No wheezes appreciated today. There is resonance to percussion at the bases bilaterally. CARDIOVASCULAR: Rhythm is regular. ABDOMEN: The abdomen is nondistended. No tenderness. Extremities: Free of edema. SKIN: No jaundice or rash. No petechiae. 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 No focal motor weakness. 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 -ER/KS negative tumor. -She tolerated single agent Taxol symptomatically very well but required RBC transfusional support. 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 -I explained to her that her cough is being driven by the malignancy. The longer that she is off some form of tumor directed therapy, the worse the cough and shortness of breath is going to get. After discussion of the neratinib, she says she would really like to try going back on Taxol. Her disease was stable on that drug and it was discontinued because of the need for repeated red blood cell transfusion. Symptomatically otherwise however she tolerated Taxol well once to go back on it. I think this is very reasonable. We will resume paclitaxel on a day 1, 8 and 15 schedule with cycles every [address] scan of the chest with IV contrast done the day prior to dialysis after 2 cycles. Sooner if her symptoms suggest need for it. She may eventually need interventional bronchoscopy. -Previously discussed advanced directives and healthcare power of contracts attorney. Plan: -As above. -CXR today. Eric Arteaga DO CNOVSP Observed: 09/05/2017 Status: COMPLETED Source: [place] 10:[address] [facility] REPOSITORY Visit (SP) Office ([place]) YUN NELSON ([id number]) 1960 F Date Time Provider Department 09/05/17 10:30 AM ERIC ARTEAGA During your visit today, we recorded the following information about you: Temperature Pulse Blood pressure Weight 97.7 degrees 92/minute 178/79 82.3 kg Dorothy Tam LPN 09/05/2017 10:50 AM Signed Est patient. Six week office visit. Discuss recent labs. C/O coughing, wheezing and SOB the last few days. Pulse ox 95% on RA. Dorothy Arteaga DO 09/05/2017 11:04 AM Signed Diagnoses: Cervical cancer and RCC. HPI: Underwent a left sided laparoscopic nephrectomy. The pathology demonstrated a T3 (7 cm) clear cell, renal cell carcinoma. Additionally, at the same time patient underwent a laparoscopic, left pelvic, lymph node dissection and right, periaortic, lymph node biopsy with lysis of adhesions. It appeared that the possible pelvic adenopathy visualized on a PET scan may have been due to a left sided hydrosalpinx and possibly enlarged left ovary. A one enlarged retroperitoneal lymph node was visualized, it was removed and it was found not to contain metastatic cancer. Previous therapy: 1. 04/29/2010 - multiple cervical and vaginal biopsies. 2. 08/17/2009 - Laparoscopic left pelvic lymph node dissection and right periaortic lymph node biopsies, lysis of adhesions. one enlarged retroperitoneal lymph node was visualized, it was removed and it was found not to contain metastatic cancer 3. 08/17/2009 - Laparoscopic left radical nephrectomy. The pathology demonstrated a T3 (7 cm) clear cell, renal cell carcinoma. (Dr Ac) 4. Concurrent Cisplatin/RT 09/13/09 - 10/15/09. Total RT dose 4500 cGy in 25 fx. 5. Shaheen template for brachytherapy with Dr. Vasquez, total dose 2250cGy in 5 fractions 10/27/09-10/29/09. 6. 04/29/2010 - Multiple cervical and vaginal biopsies, negative for recurrent disease 7. 06/10/2010 - Exploratory laparotomy, lysis of adhesions, bilateral pelvic lymphadenectomy. This case was done in conjunction with Dr. 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 8. 06/22/2011 - Exam under anesthesia with cystoscopy. This case was done in conjunction with Dr. Ernesto Burton, who performed exam under anesthesia, biopsies, and curettage of the right pubic ramus with irrigation. 9. 09/07/2011 - Total pelvic exenteration with ileal conduit (Dr. Strong), creation of neovagina (Dr. Polanco) and right pubic ramus biopsies (Dr. Burton). 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 All lymph nodes negative. 10. 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 S/P SBRT to RML (50 Gy in 5 fx from 01/18/2015-01/27/2015. 11. Palliative radiation to the trachea and right lung 10/09/16 to 10/30/16. EGD 11/2013: The examined esophagus was normal. The entire examined stomach was normal. Biopsies were taken with a cold forceps for histology. Estimated blood loss was minimal. The examined duodenum was normal. Biopsies were taken with a cold forceps for evaluation of celiac disease. Estimated blood loss was minimal. Impression: - Normal esophagus. - Normal stomach. Biopsied. - Normal examined duodenum. Biopsied. Colonoscopy 11/2013: The colon (entire examined portion) appeared normal. Impression: - The entire examined colon is normal. Recent CT Noncontrast CT scan of the chest demonstrating interval enlargement of a right middle lobe medial irregularly marginated soft tissue mass. There is subpleural fat deposition at the left lung base with 2 small nodules, the more medial slightly increased in size. There are also 2 diaphragmatic pleural-based nodules which may be stable. She had been undergoing dialysis for about a year. She underwent pelvic exoneration. She developed obstructive uropathy leading to end-stage renal disease. I received a brief note from her dial brusher indicating that the patient has been receiving maximum doses of Procrit and she has been running hemoglobin in the 's. 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 S/P SBRT to RML (50 Gy in 5 fx from 01/18/2015-01/27/2015. Previous therapy: As above. 1) Radiation to trachea and right lung. 2) Taxol. Current therapy: 1) Neratinib. Presents for ongoing oncologic management. Interim history: She has complaint today is continued, aggravating cough. Typically the cough is triggered by activity or taking a deep breath. She didn't using her metered-dose inhaler. She also uses her oxygen at nighttime. He hasn't been running any fevers. She gets more short of breath now with exertion. She didn't go back on neratinib after her last office visit. She thought if the cough will get better than she would restart the drug. She missed dialysis yesterday because she said she didn't feel well. Her appetite is been doing fair. PMH, medications and allergies personally reviewed by me today. Any changes documented in appropriate section. ROS: Constitutional: Denies episodes of night sweats. Neuro: Denies POND, vertigo and imbalance. HEENT: No recent change in voice, vision or hearing. CVS: Denies exertional chest pain, PND, orthopnea and LE edema. GI: Denies reflux and abdominal pain. No symptoms of stomatitis. : Still gets small amount of urine. Endo: No hot flashes. Derm: No rash. Heme: No unusual bleeding or bruising. Psych: Normal mood. PHYSICAL EXAM: Vitals: Blood pressure 178/79, pulse 92, temperature 36.5 ?C (97.7 ?F), temperature source Temporal Artery, weight 82.3 kg (181 lb 8 oz), SpO2 95 %. Well-appearing and in no acute distress. EYES: Sclerae are anicteric bilaterally. NECK: Supple. LYMPHATIC: There is no palpable cervical, supraclavicular adenopathy. RESPIRATORY: There is better air entry in the right upper and lower lung field. Still has diminished air entry in the right mid lung field. No wheezes appreciated today. There is resonance to percussion at the bases bilaterally. CARDIOVASCULAR: Rhythm is regular. ABDOMEN: The abdomen is nondistended. No tenderness. Extremities: Free of edema. SKIN: No jaundice or rash. No petechiae. 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 No focal motor weakness. 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 -ER/KS negative tumor. -She tolerated single agent Taxol symptomatically very well but required RBC transfusional support. 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 -I explained to her that her cough is being driven by the malignancy. The longer that she is off some form of tumor directed therapy, the worse the cough and shortness of breath is going to get. After discussion of the neratinib, she says she would really like to try going back on Taxol. Her disease was stable on that drug and it was discontinued because of the need for repeated red blood cell transfusion. Symptomatically otherwise however she tolerated Taxol well once to go back on it. I think this is very reasonable. We will resume paclitaxel on a day 1, 8 and 15 schedule with cycles every [address] scan of the chest with IV contrast done the day prior to dialysis after 2 cycles. Sooner if her symptoms suggest need for it. She may eventually need interventional bronchoscopy. -Previously discussed advanced directives and healthcare power of contracts attorney. Plan: -As above. -CXR today. Eric Arteaga DO Referring Provider: ERIC ARTEAGA [[id number]] Allergies As of Date: 09/05/2017 (No Known Allergies) Date Reviewed: 09/05/2017 Reviewed by: Dorothy Tam LPN - Fully Assessed Reason for Visit: Established Patient [175] Primary Visit Diagnosis: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] Other Visit Diagnosis:Malignant neoplasm metastatic to right lung (HCC) [C78.01] Order(s):XR CHEST 2V FRONTAL/LAT [[id number]] Order #: [id number] FUTURE Follow-up and Disposition History Recorded Prescriptions as of 09/05/2017 Sig: ALBUTEROL SULFATE 2.5 MG/3 ML* Use 3 mL via nebulizer every * DIPHENOXYLATE-ATROPINE 2.5 MG* Take 1-2 tablets by mouth pipo* ALBUTEROL SULFATE HFA 90 MCG/* Inhale 2 Puffs as instructed * NERATINIB 40 MG TABLET Take 6 tablets by mouth once * ONDANSETRON HCL 8 MG TABLET Take 1 tablet by mouth every * LISINOPRIL 20 MG TABLET Take 1 tablet by mouth twice * ERGOCALCIFEROL (VITAMIN D2) 5* Take 1 capsule by mouth once * CLOBETASOL 0.05 % TOPICAL CRE* Apply 1 application to affect* FOLIC ACID 1 MG TABLET Take 1 tablet by mouth once d* STOOL SOFTENER 100 MG CAPSULE TAKE 1 CAPSULE TWICE A DAY AMLODIPINE 10 MG TABLET Take 10 mg by mouth once adolfo* FAMOTIDINE 20 MG TABLET Take 1 tablet by mouth twice * CALCIUM ACETATE 667 MG TABLET Take 667 mg by mouth three ti* VITAMIN B COMPLEX AND VITAMIN* Take 1 capsule by mouth once * ACETAMINOPHEN 325 MG TABLET Take 650 mg by mouth every 6 * LEVOFLOXACIN 500 MG TABLET Take 0.5 tablets by mouth pipo* Patient not taking: Reported on 09/05/2017 Problem List As Of Date 09/05/2017 Noted Resolved Obesity [E66.9] INVALID FOR*09/13/2010 Pallor [R23.1] INVALID FOR*07/10/2009 LBP (low back pain) [M54.5] INVALID FOR*10/25/2012 Vomiting [R11.10] INVALID FOR*09/13/2010 Anemia due to blood loss [D50.0] INVALID FOR*12/27/2009 Dyspnea [R06.00] INVALID FOR*08/26/2009 Chest Pain [R07.9] INVALID FOR*08/26/2009 Cervix cancer [C53.9] INVALID FOR*10/25/2012 More... 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 Radiation cystitis [N30.40] INVALID FOR*10/25/2012 S/P ileal conduit [Z93.6] INVALID FOR*10/25/2012 SUMMARY [V999.95] INVALID FOR* Priority: A More... Progressively worsening kidney function [N18.9]INVALID FOR*04/03/2017 Priority: B More... Hx of cervical cancer [Z85.41] INVALID FOR* Priority: E More... H/o Renal cell cancer [C64.9] INVALID FOR* Priority: F More... DVT prophylaxis [IHZ4492] INVALID FOR*11/02/2012 Priority: L More... DISPOSITION AND FOLLOW-UP [V999.01] INVALID FOR*11/02/2012 Priority: M More... Iron deficiency anemia [D50.9] INVALID FOR* Priority: C More... Euthyroid sick syndrome [E07.81] INVALID FOR* Priority: G More... Osteomyelitis [M86.9] INVALID FOR* Priority: D More... Renal failure [N19] INVALID FOR*04/03/2017 End stage renal disease (HCC) [N18.6] INVALID FOR*04/03/2017 Anemia [D64.9] Primary lung cancer with metastasis from lung t*INVALID FOR*09/22/2016 Right middle lobe pneumonia [J18.1] INVALID FOR* Chronic kidney disease, stage V (HCC) [N18.5] More... Cancer of trachea, bronchus, and lung (HCC) [C3*INVALID FOR* More... 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] INVALID FOR* Dialysis patient (HCC) [Z99.2] INVALID FOR* Essential hypertension with goal blood pressure*INVALID FOR* Primary lung cancer with metastasis from lung t*INVALID FOR* Diastolic dysfunction [I51.9] INVALID FOR* Mitral valve insufficiency [I34.0] INVALID FOR* Rash and nonspecific skin eruption [R21] INVALID FOR* Elevated TSH [R79.89] INVALID FOR* Dyspepsia [R10.13] INVALID FOR* ESRD on hemodialysis (HCC) [N18.6, Z99.2] INVALID FOR*04/03/2017 Anemia, chronic renal failure, stage 5 (HCC) [N*INVALID FOR* Acute on chronic diastolic congestive heart gisell*INVALID FOR* ESRD (end stage renal disease) on dialysis (HCC*INVALID FOR* Visit Notes: >> Dorothy Tam LPN SunSep 05, 2017 10:30 AM Status: Signed Est patient. Six week office visit. Discuss recent labs. C/O coughing, wheezing and SOB the last few days. Pulse ox 95% on RA. Dorothy Tam LPN Encounter Status:Closed by ERIC ARTEAGA DO on 09/05/17 [place] ABS GR + CBC Collected: 09/05/2017 Status: F Source: [place] 10:[address] [facility] REPOSITORY TYPE CODE TESTS RESULT OUT OF REFERENCE UNITS RANGE LAB WWBC 3.70-11.00 k/uL [place] WBC 4.84 LAB WRBC 3.90-5.20 m/uL Low [place] RBC 3.73 LAB WHGB 11.5-15.5 g/dL Low [place] Hemoglobin 9.6 LAB WHCT 36.0-46.0 % Low [place] Hematocrit 32.5 LAB WMCV 80.0-100.0 fL [place] MCV 87.1 LAB WMCH 26.0-34.0 pg Low [place] MCH 25.7 LAB WMCHC 30.5-36.0 g/dL Low [place] MCHC 29.5 LAB WRDW 11.5-15.0 % [place] High RDW 16.3 LAB WPLT 150-400 k/uL Low [place] Platelet Cnt 139 LAB WMPV 9.0-12.7 fL [place] MPV 9.1 Result Comment: Test performed at: [facility] [place], [address] [place] [address]. LAB ABGRAN 1.45-7.50 k/uL Absol Gran 3.64 Count HEPATIC FUNCTN PANEL Collected: 09/05/2017 Status: F Source: [place] 10:[address] [facility] REPOSITORY TYPE CODE TESTS RESULT OUT OF REFERENCE UNITS RANGE LAB ALB 3.9-4.9 g/dL Low Albumin 3.8 LAB TBIL 0.2-1.3 mg/dL Bilirubin, Total 0.3 LAB CBIL <0.2 mg/dL Bilirubin,Conjuga <0.2 jp LAB ALKP 32-117 U/L Alkaline Phosphatase 65 LAB AST 13-35 U/L AST 22 LAB ALT 7-38 U/L ALT 7 LAB TP 6.3-8.0 g/dL Protein, Total 7.3 Performed By: #### HFP #### [facility] [address] [place], [place] [address] PROGRESS Observed: 08/08/2017 Status: COMPLETED Source: [place] 11:[address] [facility] REPOSITORY HNO ID: [id number] Author: Lawrence Dozier Service: (none) Author Type: Physician Type: Progress Notes Filed: 08/08/2017 11:30 AM Note Text: CC: Yun Nelson is a 57 year old female who presents to the office for 3 months follow up HPI: HTN: controlled with Lisinopril and Norvasc medications, denies CP or dyspnea or POND or dizziness/LH No hx of CAD ? Glucose (mg/dL) Date Value 09/18/2016 87 Potassium (mmol/L) Date Value 09/18/2016 5.5 Sodium (mmol/L) Date Value 09/18/2016 140 Chloride (mmol/L) Date Value 09/18/2016 94 CO2 (mmol/L) Date Value 09/18/2016 31 Creatinine (mg/dL) Date Value 09/18/2016 8.62 Creatinine, Whole Blood (iSTAT) (mg/dL) Date Value 03/28/2017 6.10 BUN (mg/dL) Date Value 09/18/2016 54 Anion Gap (mmol/L) Date Value 09/18/2016 15 Calcium (mg/dL) Date Value 09/18/2016 9.9 Protein, Total (g/dL) Date Value 04/16/2017 8.1 Albumin (g/dL) Date Value 04/16/2017 3.7 Bilirubin, Total (mg/dL) Date Value 04/16/2017 0.3 Alkaline Phosphatase (U/L) Date Value 04/16/2017 90 AST (U/L) Date Value 04/16/2017 19 ALT (U/L) Date Value 04/16/2017 11 ? Glucose (mg/dL) Date Value 08/06/2017 81 Potassium (mmol/L) Date Value 08/06/2017 3.8 Sodium (mmol/L) Date Value 08/06/2017 145 Chloride (mmol/L) Date Value 08/06/2017 98 CO2 (mmol/L) Date Value 08/06/2017 32 Creatinine (mg/dL) Date Value 08/06/2017 7.30 BUN (mg/dL) Date Value 08/06/2017 31 Anion Gap (mmol/L) Date Value 08/06/2017 15 Calcium (mg/dL) Date Value 08/06/2017 9.2 ?? Hypertriglyceridemia,never on medications for this, hasn't had this recently rechecked ? Cholesterol Date Value Ref Range Status 04/07/2015 154 100 - 199 mg/dL Final ? HDL Cholesterol Date Value Ref Range Status 04/07/2015 27 (L) >55 mg/dL Final ? LDL Cholesterol Date Value Ref Range Status 04/07/2015 91 60 - 129 mg/dL Final ? Triglyceride Date Value Ref Range Status 04/07/2015 181 (H) 30 - 149 mg/dL Final ? Primary lung cancer, treated by Dr. Stone and Dr. Perdomo, has routine follow up, metastatic, seeing Dr. Arteaga regularly, on chemotherapy ? ?? Iron deficiency anemia and vitamin D deficiency associated with ESRD on HD ?? Use of her?handicap placard, difficulty on HD days to walk far and struggles with fatigue chronically due to ESRD. 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 Cared for by Dr. Moy Shredding Specialist, has ESRD with HD , Sat here in [place]. Takes Nephrocaps as prescribed. she is still taking HD 3 days a week per her right arm fistula. ? Cough, productive yellow sputum for 2-3 weeks, no fevers or chills. Not feeling as well as usual, no Lh or dizziness, missed HD yesterday. 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 Visible endobronchial tumor in trachea, R main bronchus and BI. - Cervix cancer (HCC) 07/05/2009 Presumed at least stage IIb cervical cancer, radiation completed 10/15/09 - Chronic kidney disease, stage V (HCC) on HD , Sat, Shredding Specialist Dr. 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 states this has NOT been an issue - Personal history of unspecified urinary disorder PAST SURGICAL HISTORY Procedure Laterality Date - BRONCHOSCOPY - COLONOSCOP W/ OR W/O [facility] SPEC 12/27/2009 recto-vaginal fistula - COLONOSCOP W/ OR W/O [facility] SPEC 12/03/2013 normal - COLOSTOMY 06/10/10 - EGD W/O OR W/BRUSH/WASH 12/27/2009 EGD - EGD W/O OR W/BRUSH/WASH 12/03/2014 normal - INSRT UTER TANDMS/VAG OVOIDS 10/26/09 INSERT UTERINE TANDEMS FOR CLINICAL BRACHYTHERAPY performed by ADELA JOY at OR - LAPAROSCOPIC NEPHRECTOMY- CHERI 08/17/2009 Left: pT2, Clear Cell RCC, 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 - PAST SURGICAL HISTORY OF 06/22/11 Debridement R inf pubic ramus-osteomyelitis - PAST SURGICAL HISTORY OF 06/2011 urostomy - PAST SURGICAL HISTORY OF 08/2013 surgery on right arm for dialyasis - PELVIC EXAMINATION W ANESTH 06/22/2011 EUA/cysto - PELVIC EXENTERATION 09/07/2011 Current Outpatient Prescriptions: albuterol (PROVENTIL) 2.5 mg /3 mL (0.083 %) nebulizer solution Use 3 mL via nebulizer every 2 hours as needed for Wheezing/Shortness of Breath. Use over 5-15minutes. diphenoxylate-atropine (LOMOTIL) 2.5-0.025 mg per tablet Take 1-2 tablets by mouth every 6 hours as needed for Diarrhea for up to 14 days. albuterol HFA (PROAIR HFA) 90 mcg/actuation inhaler Inhale 2 Puffs as instructed every 4 hours as needed. neratinib 40 mg tab Take 6 tablets by mouth once daily. ondansetron (ZOFRAN) 8 mg tablet Take 1 tablet by mouth every 8 hours as needed for Nausea/Vomiting. lisinopril (ZESTRIL, PRINIVIL) 20 mg tablet Take 1 tablet by mouth twice daily. ergocalciferol, vitamin D2, (DRISDOL) 50,000 unit capsule Take 1 capsule by mouth once each week. Once weekly clobetasol (TEMOVATE) 0.05 % cream Apply 1 application to affected area twice daily. As needed for rash on arms folic acid 1 mg tablet Take 1 tablet by mouth once daily. STOOL SOFTENER 100 mg capsule TAKE 1 CAPSULE TWICE A DAY amLODIPine (NORVASC) 10 mg tablet Take 10 mg by mouth once daily. famotidine (PEPCID) 20 mg tablet Take 1 tablet by mouth twice daily as needed (stomach upset). calcium acetate 667 mg tab Take 667 mg by mouth three times daily. b complex, c, folic acid 1 mg renal vitamins (TRIPHROCAPS) 1 mg capsule Take 1 capsule by mouth once daily. acetaminophen (TYLENOL) 325 mg tablet Take 650 mg by mouth every 6 hours as needed. zoster vaccine, recombinant, adjuvanted, (SHINGRIX) 50 mcg/0.5 mL injection Inject 0.5 mL intramuscularly one time only for 1 dose. levoFLOXacin (LEVAQUIN) 500 mg tablet Take 0.5 tablets by mouth every 48 hours. No current facility-administered medications for this visit. 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 Spouse still active smoker, in home. Alcohol use: No Drug use: No Sexual activity: Yes Partners with: Male Other Topics Concern Service No Blood Transfusions Yes Caffeine Concern No Occupational Exposure No Hobby Hazards No Sleep Concern No Stress Concern No Weight Concern No Special Diet No Back Care No Exercise Yes Comment:sometimes Bike Helmet No Seat Belt No Self-Exams Yes ROS: See HPI PE: BP 152/60 Pulse 80 Temp (Src) 97.3 (Right Tympanic) Resp 16 Wt 181 lb (82.1kg) Gen: AANDOX3, NAD, non-toxic appearing, cooperative HEENT: PERRLA, EOMIs with lateral deviation right eye, nares without drainage, pharynx without erythema, exudate, lesions, or drainage. Uvula midline. MMM, poor dentition Neck: No LAD, no thyromegaly, no meningismus. CV: RRR, 3/6 HSM LUSB, LLSB?murmur, normal s1s2? Lungs: right lower and upper lobes with scattered rhonchi and wheezing, intermittent on left lower/upper lobes rhonchi, intermittent moist cough No edema Thoracic kyphosis Skin: eczematous dry rash on b/l outer arms and thighs and abdomen ASSESSMENT/PLAN: 1. Acute bronchitis with chronic obstructive pulmonary disease (COPD) ([facility]) - ICD9: 491.22, ICD10: J44.0, J20.9 (primary diagnosis) - xray as ordered, f/u for CT chest if not improved - LEVOFLOXACIN 500 MG TABLET 2. Need for shingles vaccine - ICD9: V04.89, ICD10: Z23 - VARICELLA-ZOSTER GLYCOE VACC-AS01B ADJ(PF) 50 MCG/0.5 ML IM SUSP, KIT 3. Need for pneumococcal vaccination - ICD9: V03.82, ICD10: Z23 - PNEUMOCOCCAL IMMUNIZATION PPSV 23 4. Acute on chronic diastolic congestive heart failure (HCC) - ICD9: 428.33, 428.0, ICD10: I50.33 - see above, f/u with Manager Rental 5. ESRD (end stage renal disease) on dialysis ([facility]) - ICD9: 585.6, V45.11, ICD10: N18.6, Z99.2 - see above, f/u with Shredding Specialist, continue HD tomorrow 6. Primary lung cancer with metastasis from lung to other site, right ([facility]) - ICD9: 162.9, ICD10: C34.91 - f/u with Oncologist and Tray Line Supervisor 7. Anemia, chronic renal failure, stage 5 ([facility]) - ICD9: 285.21, 585.5, ICD10: N18.5, D63.1 - see above Lawrence Dozier DO Return if no improvement. Follow up with Lawrence Dozier DO. Discussed risks, benefits, alternatives, and potential side effects of medications. Patient/Guardian expressed understanding and agreed with the plan. See patient instructions. Lawrence Dozier DO [address] [place] [address] CNOV Observed: 08/08/2017 Status: COMPLETED Source: [place] 10:[address] [facility] REPOSITORY Office Visit (FAMPWS) JIMENAYUN D ([id number]) 1960 F Date Time Provider Department 08/08/17 10:40 AM LAWRENCE DOZIER FAMPWS During your visit today, we recorded the following information about you: Temperature Pulse Respiration Blood pressure 97.3 degrees 80/minute 16/minute 152/60 Weight 82.1 kg Lawrence Dozier DO 08/08/2017 11:30 AM Signed CC: Yun Nelson is a 57 year old female who presents to the office for 3 months follow up HPI: HTN: controlled with Lisinopril and Norvasc medications, denies CP or dyspnea or POND or dizziness/LH No hx of CAD ? Glucose (mg/dL) Date Value 09/18/2016 87 Potassium (mmol/L) Date Value 09/18/2016 5.5 Sodium (mmol/L) Date Value 09/18/2016 140 Chloride (mmol/L) Date Value 09/18/2016 94 CO2 (mmol/L) Date Value 09/18/2016 31 Creatinine (mg/dL) Date Value 09/18/2016 8.62 Creatinine, Whole Blood (iSTAT) (mg/dL) Date Value 03/28/2017 6.10 BUN (mg/dL) Date Value 09/18/2016 54 Anion Gap (mmol/L) Date Value 09/18/2016 15 Calcium (mg/dL) Date Value 09/18/2016 9.9 Protein, Total (g/dL) Date Value 04/16/2017 8.1 Albumin (g/dL) Date Value 04/16/2017 3.7 Bilirubin, Total (mg/dL) Date Value 04/16/2017 0.3 Alkaline Phosphatase (U/L) Date Value 04/16/2017 90 AST (U/L) Date Value 04/16/2017 19 ALT (U/L) Date Value 04/16/2017 11 ? Glucose (mg/dL) Date Value 08/06/2017 81 Potassium (mmol/L) Date Value 08/06/2017 3.8 Sodium (mmol/L) Date Value 08/06/2017 145 Chloride (mmol/L) Date Value 08/06/2017 98 CO2 (mmol/L) Date Value 08/06/2017 32 Creatinine (mg/dL) Date Value 08/06/2017 7.30 BUN (mg/dL) Date Value 08/06/2017 31 Anion Gap (mmol/L) Date Value 08/06/2017 15 Calcium (mg/dL) Date Value 08/06/2017 9.2 ?? Hypertriglyceridemia,never on medications for this, hasn't had this recently rechecked ? Cholesterol Date Value Ref Range Status 04/07/2015 154 100 - 199 mg/dL Final ? HDL Cholesterol Date Value Ref Range Status 04/07/2015 27 (L) >55 mg/dL Final ? LDL Cholesterol Date Value Ref Range Status 04/07/2015 91 60 - 129 mg/dL Final ? Triglyceride Date Value Ref Range Status 04/07/2015 181 (H) 30 - 149 mg/dL Final ? Primary lung cancer, treated by Dr. Stone and Dr. Perdomo, has routine follow up, metastatic, seeing Dr. Arteaga regularly, on chemotherapy ? ?? Iron deficiency anemia and vitamin D deficiency associated with ESRD on HD ?? Use of her?handicap placard, difficulty on HD days to walk far and struggles with fatigue chronically due to ESRD. 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 Cared for by Dr. Moy Shredding Specialist, has ESRD with HD Madisyn Salmon, [place] here in [place]. Takes Nephrocaps as prescribed. she is still taking HD 3 days a week per her right arm fistula. ? Cough, productive yellow sputum for 2-3 weeks, no fevers or chills. Not feeling as well as usual, no Lh or dizziness, missed HD yesterday. 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 Visible endobronchial tumor in trachea, R main bronchus and BI. - Cervix cancer (HCC) 07/05/2009 Presumed at least stage IIb cervical cancer, radiation completed 10/15/09 - Chronic kidney disease, stage V (HCC) on HD Madisyn Salmon Sat, Shredding Specialist Dr. 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 states this has NOT been an issue - Personal history of unspecified urinary disorder PAST SURGICAL HISTORY Procedure Laterality Date - BRONCHOSCOPY - COLONOSCOP W/ OR W/O [facility] SPEC 12/27/2009 recto-vaginal fistula - COLONOSCOP W/ OR W/O [facility] SPEC 12/03/2013 normal - COLOSTOMY 06/10/10 - EGD W/O OR W/BRUSH/WASH 12/27/2009 EGD - EGD W/O OR W/BRUSH/WASH 12/03/2014 normal - INSRT UTER TANDMS/VAG OVOIDS 10/26/09 INSERT UTERINE TANDEMS FOR CLINICAL BRACHYTHERAPY performed by ADELA JOY at OR - LAPAROSCOPIC NEPHRECTOMY- [facility]I 08/17/2009 Left: pT2, Clear Cell RCC, 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 - PAST SURGICAL HISTORY OF 06/22/11 Debridement R inf pubic ramus-osteomyelitis - PAST SURGICAL HISTORY OF 06/2011 urostomy - PAST SURGICAL HISTORY OF 08/2013 surgery on right arm for dialyasis - PELVIC EXAMINATION W ANESTH 06/22/2011 EUA/cysto - PELVIC EXENTERATION 09/07/2011 Current Outpatient Prescriptions: albuterol (PROVENTIL) 2.5 mg /3 mL (0.083 %) nebulizer solution Use 3 mL via nebulizer every 2 hours as needed for Wheezing/Shortness of Breath. Use over 5-15minutes. diphenoxylate-atropine (LOMOTIL) 2.5-0.025 mg per tablet Take 1-2 tablets by mouth every 6 hours as needed for Diarrhea for up to 14 days. albuterol HFA (PROAIR HFA) 90 mcg/actuation inhaler Inhale 2 Puffs as instructed every 4 hours as needed. neratinib 40 mg tab Take 6 tablets by mouth once daily. ondansetron (ZOFRAN) 8 mg tablet Take 1 tablet by mouth every 8 hours as needed for Nausea/Vomiting. lisinopril (ZESTRIL, PRINIVIL) 20 mg tablet Take 1 tablet by mouth twice daily. ergocalciferol, vitamin D2, (DRISDOL) 50,000 unit capsule Take 1 capsule by mouth once each week. Once weekly clobetasol (TEMOVATE) 0.05 % cream Apply 1 application to affected area twice daily. As needed for rash on arms folic acid 1 mg tablet Take 1 tablet by mouth once daily. STOOL SOFTENER 100 mg capsule TAKE 1 CAPSULE TWICE A DAY amLODIPine (NORVASC) 10 mg tablet Take 10 mg by mouth once daily. famotidine (PEPCID) 20 mg tablet Take 1 tablet by mouth twice daily as needed (stomach upset). calcium acetate 667 mg tab Take 667 mg by mouth three times daily. b complex, c, folic acid 1 mg renal vitamins (TRIPHROCAPS) 1 mg capsule Take 1 capsule by mouth once daily. acetaminophen (TYLENOL) 325 mg tablet Take 650 mg by mouth every 6 hours as needed. zoster vaccine, recombinant, adjuvanted, (SHINGRIX) 50 mcg/0.5 mL injection Inject 0.5 mL intramuscularly one time only for 1 dose. levoFLOXacin (LEVAQUIN) 500 mg tablet Take 0.5 tablets by mouth every 48 hours. No current facility-administered medications for this visit. 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 Spouse still active smoker, in home. Alcohol use: No Drug use: No Sexual activity: Yes Partners with: Male Other Topics Concern Service No Blood Transfusions Yes Caffeine Concern No Occupational Exposure No Hobby Hazards No Sleep Concern No Stress Concern No Weight Concern No Special Diet No Back Care No Exercise Yes Comment:sometimes Bike Helmet No Seat Belt No Self-Exams Yes ROS: See HPI PE: BP 152/60 Pulse 80 Temp (Src) 97.3 (Right Tympanic) Resp 16 Wt 181 lb (82.1kg) Gen: AANDOX3, NAD, non-toxic appearing, cooperative HEENT: PERRLA, EOMIs with lateral deviation right eye, nares without drainage, pharynx without erythema, exudate, lesions, or drainage. Uvula midline. MMM, poor dentition Neck: No LAD, no thyromegaly, no meningismus. CV: RRR, 3/6 HSM LUSB, LLSB?murmur, normal s1s2? Lungs: right lower and upper lobes with scattered rhonchi and wheezing, intermittent on left lower/upper lobes rhonchi, intermittent moist cough No edema Thoracic kyphosis Skin: eczematous dry rash on b/l outer arms and thighs and abdomen ASSESSMENT/PLAN: 1. Acute bronchitis with chronic obstructive pulmonary disease (COPD) ([facility]) - ICD9: 491.22, ICD10: J44.0, J20.9 (primary diagnosis) - xray as ordered, f/u for CT chest if not improved - LEVOFLOXACIN 500 MG TABLET 2. Need for shingles vaccine - ICD9: V04.89, ICD10: Z23 - VARICELLA-ZOSTER GLYCOE VACC-AS01B ADJ(PF) 50 MCG/0.5 ML IM SUSP, KIT 3. Need for pneumococcal vaccination - ICD9: V03.82, ICD10: Z23 - PNEUMOCOCCAL IMMUNIZATION PPSV 23 4. Acute on chronic diastolic congestive heart failure (HCC) - ICD9: 428.33, 428.0, ICD10: I50.33 - see above, f/u with Manager Rental 5. ESRD (end stage renal disease) on dialysis ([facility]) - ICD9: 585.6, V45.11, ICD10: N18.6, Z99.2 - see above, f/u with Shredding Specialist, continue HD tomorrow 6. Primary lung cancer with metastasis from lung to other site, right ([facility]) - ICD9: 162.9, ICD10: C34.91 - f/u with Oncologist and Tray Line Supervisor 7. Anemia, chronic renal failure, stage 5 ([facility]) - ICD9: 285.21, 585.5, ICD10: N18.5, D63.1 - see above Lawrence Dozier DO Return if no improvement. Follow up with Lawrence Dozier DO. Discussed risks, benefits, alternatives, and potential side effects of medications. Patient/Guardian expressed understanding and agreed with the plan. See patient instructions. Lawrence Dozier DO [address] [place] [address] Referring Provider: LAWRENCE DOZIER [[id number]] Allergies As of Date: 08/08/2017 (No Known Allergies) Date Reviewed: 08/08/2017 Reviewed by: Jeanie Jenkins LPN - Fully Assessed Reason for Visit: Follow Up [171] Cmt: 3 months Primary Visit Diagnosis:Acute bronchitis with chronic obstructive pulmonary disease (COPD) ([facility]) [J44.0, J20.9] Other Visit Diagnoses:Need for shingles vaccine [Z23] Need for pneumococcal vaccination [Z23] Acute on chronic diastolic congestive heart failure ([facility]) [I50.33] ESRD (end stage renal disease) on dialysis ([facility]) [N18.6, Z99.2] Primary lung cancer with metastasis from lung to other site, right ([facility]) [C34.91] Anemia, chronic renal failure, stage 5 ([facility]) [N18.5, D63.1] Order(s):zoster vaccine, recombinant, adjuvanted, (SHINGRIX) 50 mcg/0.5 mL injectionInject 0.5 mL intramuscularly one time only for 1 dose.Disp: 0.5 mLRfl: 0 PNEUMOCOCCAL IMMUNIZATION PPSV 23 [[id number]] Order #: [id number] levoFLOXacin (LEVAQUIN) 500 mg tabletTake 0.5 tablets by mouth every 48 hours.Disp: 7 tabletRfl: 0 Prescriptions as of 08/08/2017 Sig: ALBUTEROL SULFATE 2.5 MG/3 ML* Use 3 mL via nebulizer every * DIPHENOXYLATE-ATROPINE 2.5 MG* Take 1-2 tablets by mouth pipo* ALBUTEROL SULFATE HFA 90 MCG/* Inhale 2 Puffs as instructed * NERATINIB 40 MG TABLET Take 6 tablets by mouth once * ONDANSETRON HCL 8 MG TABLET Take 1 tablet by mouth every * LISINOPRIL 20 MG TABLET Take 1 tablet by mouth twice * ERGOCALCIFEROL (VITAMIN D2) 5* Take 1 capsule by mouth once * CLOBETASOL 0.05 % TOPICAL CRE* Apply 1 application to affect* FOLIC ACID 1 MG TABLET Take 1 tablet by mouth once d* STOOL SOFTENER 100 MG CAPSULE TAKE 1 CAPSULE TWICE A DAY AMLODIPINE 10 MG TABLET Take 10 mg by mouth once adolfo* FAMOTIDINE 20 MG TABLET Take 1 tablet by mouth twice * CALCIUM ACETATE 667 MG TABLET Take 667 mg by mouth three ti* VITAMIN B COMPLEX AND VITAMIN* Take 1 capsule by mouth once * ACETAMINOPHEN 325 MG TABLET Take 650 mg by mouth every 6 * VARICELLA-ZOSTER GLYCOE VACC-* Inject 0.5 mL intramuscularly* LEVOFLOXACIN 500 MG TABLET Take 0.5 tablets by mouth pipo* Problem List As Of Date 08/08/2017 Noted Resolved Obesity [E66.9] INVALID FOR*09/13/2010 Pallor [R23.1] INVALID FOR*07/10/2009 LBP (low back pain) [M54.5] INVALID FOR*10/25/2012 Vomiting [R11.10] INVALID FOR*09/13/2010 Anemia due to blood loss [D50.0] INVALID FOR*12/27/2009 Dyspnea [R06.00] INVALID FOR*08/26/2009 Chest Pain [R07.9] INVALID FOR*08/26/2009 Cervix cancer [C53.9] INVALID FOR*10/25/2012 More... 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 Radiation cystitis [N30.40] INVALID FOR*10/25/2012 S/P ileal conduit [Z93.6] INVALID FOR*10/25/2012 SUMMARY [V999.95] INVALID FOR* Priority: A More... Progressively worsening kidney function [N18.9]INVALID FOR*04/03/2017 Priority: B More... Hx of cervical cancer [Z85.41] INVALID FOR* Priority: E More... H/o Renal cell cancer [C64.9] INVALID FOR* Priority: F More... DVT prophylaxis [VBT0272] INVALID FOR*11/02/2012 Priority: L More... DISPOSITION AND FOLLOW-UP [V999.01] INVALID FOR*11/02/2012 Priority: M More... Iron deficiency anemia [D50.9] INVALID FOR* Priority: C More... Euthyroid sick syndrome [E07.81] INVALID FOR* Priority: G More... Osteomyelitis [M86.9] INVALID FOR* Priority: D More... Renal failure [N19] INVALID FOR*04/03/2017 End stage renal disease (HCC) [N18.6] INVALID FOR*04/03/2017 Anemia [D64.9] Primary lung cancer with metastasis from lung t*INVALID FOR*09/22/2016 Right middle lobe pneumonia [J18.1] INVALID FOR* Chronic kidney disease, stage V (HCC) [N18.5] More... Cancer of trachea, bronchus, and lung (HCC) [C3*INVALID FOR* More... 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] INVALID FOR* Dialysis patient (HCC) [Z99.2] INVALID FOR* Essential hypertension with goal blood pressure*INVALID FOR* Primary lung cancer with metastasis from lung t*INVALID FOR* Diastolic dysfunction [I51.9] INVALID FOR* Mitral valve insufficiency [I34.0] INVALID FOR* Rash and nonspecific skin eruption [R21] INVALID FOR* Elevated TSH [R94.6] INVALID FOR* Dyspepsia [R10.13] INVALID FOR* ESRD on hemodialysis (HCC) [N18.6, Z99.2] INVALID FOR*04/03/2017 Anemia, chronic renal failure, stage 5 (HCC) [N*INVALID FOR* Acute on chronic diastolic congestive heart gisell*INVALID FOR* ESRD (end stage renal disease) on dialysis (HCC*INVALID FOR* Prescriptions ordered this encounter Disp Refills Start End VARICELLA-ZOSTER GLYCOE VACC-AS01B A* 0.5 * 0 08/08/2017 08/08/2017 Class: Print RX Route: INTRAMUSCULA Sig: Inject 0.5 mL intramuscularly one time only for 1 dose. LEVOFLOXACIN 500 MG TABLET 7 ta* 0 08/08/2017 08/08/2017 Route: ORAL Sig: Take 0.5 tablets by mouth every 48 hours. LEVOFLOXACIN 500 MG TABLET 7 ta* 0 08/08/2017 Route: ORAL Sig: Take 0.5 tablets by mouth every 48 hours. Medications Discontinued During This Encounter levoFLOXacin (LEVAQUIN) 500 mg tablet 7 ta* 0 08/08/2017 08/08/2017 Route: ORAL Sig: Take 0.5 tablets by mouth every 48 hours. Disc: Reason for discontinue is not on file. Encounter Status:Closed by LAWRENCE DOZIER DO on 08/08/17 BASIC METABOLIC PANL Collected: 08/06/2017 Status: F Source: [place] 10:[address] [facility] REPOSITORY TYPE CODE TESTS RESULT OUT OF REFERENCE UNITS RANGE LAB GLU 74-99 mg/dL Glucose 81 Result Comment: The [place] [employer] (ADA) provides guidance for cutoff values for fasting glucose and random glucose. The ADA defines fasting as no caloric intake for at least 8 hours. Fas ting plasma glucose results between 100 to 125 mg/dL indicate increased risk for diabetes (prediabetes). Fasting plasma glucose results greater than or equal to 126 mg/dL meet the criteria for diagnosis of diabetes. In the absence of unequivocal hyperglycemia, results should be confirmed by repeat testing. In a patient with classic symptoms of hyperglycemia or hyperglycemic crisis, random plasma glucose results greater than or equal to 200 mg/dL meet the criteria for diagnosis of diabetes. Reference: Standards of Medical Care in Diabetes 2016, [place] [employer]. Diabetes Care. 2016.39(Suppl 1). LAB BUN 7-21 mg/dL BUN High 31 LAB CRET 0.58-0.96 mg/dL Creatinine High 7.30 LAB NA 136-144 mmol/L Sodium High 145 LAB K 3.7-5.1 mmol/L Potassium 3.8 LAB CL 97-105 mmol/L Chloride 98 LAB CO2 22-30 mmol/L CO2 High 32 LAB AGAP 9-18 mmol/L Anion Gap 15 LAB CA 8.5-10.2 mg/dL Calcium, Total 9.2 LAB GFRAA eGFR- 7 Amer. LAB GFRNAA . eGFR-All Other Races 6 Result Comment: eGFR (Estimated GFR) Units of measure: mL/min/1.73 meters squared eGFR is derived from the reexpressed MDRD Study equation using the following parameters: serum creatinine, age, gender and race. The creatinine assay has been calibrated to be traceable to IDMS. An eGFR <60 mL/min/1.73m2 for >3 months is consistent with chronic kidney disease. Refer to KDOQI guidelines for clinical interpretation. In patients with unstable renal function, e.g. those with acute kidney injury, the eGFR may not accurately reflect actual GFR. Performed By: #### BMP #### [facility] [id number] [id number] PROGRESS Observed: 07/25/2017 Status: COMPLETED Source: [place] 11:[address] [facility] REPOSITORY HNO ID: [id number] Author: Anel Arshad (Sw) Service: (none) Author Type: Prime Minister Type: Progress Notes Filed: 07/25/2017 11:50 AM Note Text: Social Work Problem Referral Note INFORMATION/REFERRAL : Yun Nelson 57 year old female was referred by [facility] Social Work for the following reason(s): Advance Directive - Living Will, DPAHC, DNR PERSONS INTERVIEWED: patient INTERVENTION: Information AND Referral Service Co-ordination Affect/Mood: The patient is noted as appropriate IDENTIFIED PROBLEMS/NEEDS: Advance Directives Intervention/Referral to be provided:No further intervention required IMPRESSION/PLAN: PEPPER met with patient to complete Advance Directives. PEPPER monitored MH symptoms and assessed needs. Patient denies other needs at this time. F/U APPOINTMENT: LORNA Connolly PROGRESS Observed: 07/25/2017 Status: COMPLETED Source: [place] 11:[address] [facility] REPOSITORY HNO ID: [id number] Author: Eric Arteaga Service: (none) Author Type: Physician Type: Progress Notes Filed: 07/25/2017 11:36 AM Note Text: Diagnoses: Cervical cancer and RCC. HPI: Underwent a left sided laparoscopic nephrectomy. The pathology demonstrated a T3 (7 cm) clear cell, renal cell carcinoma. Additionally, at the same time patient underwent a laparoscopic, left pelvic, lymph node dissection and right, periaortic, lymph node biopsy with lysis of adhesions. It appeared that the possible pelvic adenopathy visualized on a PET scan may have been due to a left sided hydrosalpinx and possibly enlarged left ovary. A one enlarged retroperitoneal lymph node was visualized, it was removed and it was found not to contain metastatic cancer. Previous therapy: 1. 04/29/2010 - multiple cervical and vaginal biopsies. 2. 08/17/2009 - Laparoscopic left pelvic lymph node dissection and right periaortic lymph node biopsies, lysis of adhesions. one enlarged retroperitoneal lymph node was visualized, it was removed and it was found not to contain metastatic cancer 3. 08/17/2009 - Laparoscopic left radical nephrectomy. The pathology demonstrated a T3 (7 cm) clear cell, renal cell carcinoma. (Dr Ac) 4. Concurrent Cisplatin/RT 09/13/09 - 10/15/09. Total RT dose 4500 cGy in 25 fx. 5. Shaheen template for brachytherapy with Dr. Vasquez, total dose 2250cGy in 5 fractions 10/27/09-10/29/09. 6. 04/29/2010 - Multiple cervical and vaginal biopsies, negative for recurrent disease 7. 06/10/2010 - Exploratory laparotomy, lysis of adhesions, bilateral pelvic lymphadenectomy. This case was done in conjunction with Dr. 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 8. 06/22/2011 - Exam under anesthesia with cystoscopy. This case was done in conjunction with Dr. Ernesto Burton, who performed exam under anesthesia, biopsies, and curettage of the right pubic ramus with irrigation. 9. 09/07/2011 - Total pelvic exenteration with ileal conduit (Dr. Strong), creation of neovagina (Dr. Polanco) and right pubic ramus biopsies (Dr. Burton). 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 All lymph nodes negative. 10. 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 S/P SBRT to RML (50 Gy in 5 fx from 01/18/2015-01/27/2015. 11. Palliative radiation to the trachea and right lung 10/09/16 to 10/30/16. EGD 11/2013: The examined esophagus was normal. The entire examined stomach was normal. Biopsies were taken with a cold forceps for histology. Estimated blood loss was minimal. The examined duodenum was normal. Biopsies were taken with a cold forceps for evaluation of celiac disease. Estimated blood loss was minimal. Impression: - Normal esophagus. - Normal stomach. Biopsied. - Normal examined duodenum. Biopsied. Colonoscopy 11/2013: The colon (entire examined portion) appeared normal. Impression: - The entire examined colon is normal. Recent CT Noncontrast CT scan of the chest demonstrating interval enlargement of a right middle lobe medial irregularly marginated soft tissue mass. There is subpleural fat deposition at the left lung base with 2 small nodules, the more medial slightly increased in size. There are also 2 diaphragmatic pleural-based nodules which may be stable. She had been undergoing dialysis for about a year. She underwent pelvic exoneration. She developed obstructive uropathy leading to end-stage renal disease. I received a brief note from her dial brusher indicating that the patient has been receiving maximum doses of Procrit and she has been running hemoglobin in the 's. 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 S/P SBRT to RML (50 Gy in 5 fx from 01/18/2015-01/27/2015. Previous therapy: As above. 1) Radiation to trachea and right lung. 2) Taxol. Current therapy: 1) Neratinib. Presents for ongoing oncologic management. Interim history: She continues to have frequent cough with occasional production of clear sputum. Particularly worse when she undergoes dialysis She feels that her reading is getting a little more short. She's been using her home nebulizer which helps a little bit. She doesn't have a prescription for a metered-dose inhaler. Her energy levels she describes as being fair. Her appetite is up and down. She began neratinib on 07/01. Within a day or 2 she had onset of frequent diarrhea and was emptying her colostomy bag up to 5-6 times a day. It was all watery stool. She also had nausea in conjunction with that the did not take any antiemetic medication. She was inconsistent about using Imodium at first. She stop medication temporarily while she was on vacation. She returned about a week ago. No further diarrhea. PMH, medications and allergies personally reviewed by me today. Any changes documented in appropriate section. ROS: Constitutional: Denies episodes of night sweats. Neuro: Denies POND, vertigo and imbalance. HEENT: No recent change in voice, vision or hearing. CVS: Denies exertional chest pain, PND, orthopnea and LE edema. GI: Denies reflux and abdominal pain. No symptoms of stomatitis. : Still gets small amount of urine. Endo: No hot flashes. Derm: No rash. Heme: No unusual bleeding or bruising. Psych: Normal mood. PHYSICAL EXAM: Vitals: Blood pressure 161/72, pulse 95, temperature 36.8 ?C (98.2 ?F), temperature source Oral, weight 81.6 kg (180 lb). Well-appearing and in no acute distress. EYES: Sclerae are anicteric bilaterally. NECK: Supple. LYMPHATIC: There is no palpable cervical, supraclavicular adenopathy. RESPIRATORY: She has diminished breath sounds all throughout. R > L. No wheeze or rhonchi. CARDIOVASCULAR: Rhythm is regular. ABDOMEN: The abdomen is nondistended. No tenderness. Extremities: Free of edema. SKIN: No jaundice or rash. No petechiae. 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 No focal motor weakness. 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 -ER/KS negative tumor. -She tolerated single agent Taxol symptomatically very well but required RBC transfusional support. -Foundation 1 testing suggested potential role for neratinib. -She hasn't really had a fair trial of neratinib. However in order to increase compliance I recommended that she start back with 4 tablets a day. I also gave her prescription for Lomotil to use. I will ask her nurse coordinator to follow-up closely with her to be sure she is taking antidiarrheal and antiemetic medication on a consistent basis. -I personally reviewed her CT chest images and agree with the radiologist's interpretation. -We will plan repeat CT scan after she's had consistent therapy for a proximally 6-8 weeks. -Previously discussed advanced directives and healthcare power of contracts attorney. Plan: -Restart neratinib with 4 tablets daily. -Imodium according to package insert instructions. -Use Lomotil in conjunction with Imodium 1-2 tablets every 6 hours as needed. -Office visit with lab work in about 6 weeks. -Rx to refill albuterol MDI sent to her pharmacy. Eric Arteaga DO CNOVSP Observed: 07/25/2017 Status: COMPLETED Source: [place] 10:[address] [facility] REPOSITORY Visit (SP) Office ([place]) YUN NELSON ([id number]) 1960 F Date Time Provider Department 07/25/17 10:50 AM ERIC ARTEAGA During your visit today, we recorded the following information about you: Temperature Pulse Blood pressure Weight 98.2 degrees 95/minute 161/72 81.6 kg Eric Arteaga DO 07/25/2017 11:36 AM Signed Diagnoses: Cervical cancer and RCC. HPI: Underwent a left sided laparoscopic nephrectomy. The pathology demonstrated a T3 (7 cm) clear cell, renal cell carcinoma. Additionally, at the same time patient underwent a laparoscopic, left pelvic, lymph node dissection and right, periaortic, lymph node biopsy with lysis of adhesions. It appeared that the possible pelvic adenopathy visualized on a PET scan may have been due to a left sided hydrosalpinx and possibly enlarged left ovary. A one enlarged retroperitoneal lymph node was visualized, it was removed and it was found not to contain metastatic cancer. Previous therapy: 1. 04/29/2010 - multiple cervical and vaginal biopsies. 2. 08/17/2009 - Laparoscopic left pelvic lymph node dissection and right periaortic lymph node biopsies, lysis of adhesions. one enlarged retroperitoneal lymph node was visualized, it was removed and it was found not to contain metastatic cancer 3. 08/17/2009 - Laparoscopic left radical nephrectomy. The pathology demonstrated a T3 (7 cm) clear cell, renal cell carcinoma. (Dr Ac) 4. Concurrent Cisplatin/RT 09/13/09 - 10/15/09. Total RT dose 4500 cGy in 25 fx. 5. Shaheen template for brachytherapy with Dr. Vasquez, total dose 2250cGy in 5 fractions 10/27/09-10/29/09. 6. 04/29/2010 - Multiple cervical and vaginal biopsies, negative for recurrent disease 7. 06/10/2010 - Exploratory laparotomy, lysis of adhesions, bilateral pelvic lymphadenectomy. This case was done in conjunction with Dr. 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 8. 06/22/2011 - Exam under anesthesia with cystoscopy. This case was done in conjunction with Dr. Ernesto Burton, who performed exam under anesthesia, biopsies, and curettage of the right pubic ramus with irrigation. 9. 09/07/2011 - Total pelvic exenteration with ileal conduit (Dr. Strong), creation of neovagina (Dr. Polanco) and right pubic ramus biopsies (Dr. Burton). 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 All lymph nodes negative. 10. 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 S/P SBRT to RML (50 Gy in 5 fx from 01/18/2015-01/27/2015. 11. Palliative radiation to the trachea and right lung 10/09/16 to 10/30/16. EGD 11/2013: The examined esophagus was normal. The entire examined stomach was normal. Biopsies were taken with a cold forceps for histology. Estimated blood loss was minimal. The examined duodenum was normal. Biopsies were taken with a cold forceps for evaluation of celiac disease. Estimated blood loss was minimal. Impression: - Normal esophagus. - Normal stomach. Biopsied. - Normal examined duodenum. Biopsied. Colonoscopy 11/2013: The colon (entire examined portion) appeared normal. Impression: - The entire examined colon is normal. Recent CT Noncontrast CT scan of the chest demonstrating interval enlargement of a right middle lobe medial irregularly marginated soft tissue mass. There is subpleural fat deposition at the left lung base with 2 small nodules, the more medial slightly increased in size. There are also 2 diaphragmatic pleural-based nodules which may be stable. She had been undergoing dialysis for about a year. She underwent pelvic exoneration. She developed obstructive uropathy leading to end-stage renal disease. I received a brief note from her dial brusher indicating that the patient has been receiving maximum doses of Procrit and she has been running hemoglobin in the 's. 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 S/P SBRT to RML (50 Gy in 5 fx from 01/18/2015-01/27/2015. Previous therapy: As above. 1) Radiation to trachea and right lung. 2) Taxol. Current therapy: 1) Neratinib. Presents for ongoing oncologic management. Interim history: She continues to have frequent cough with occasional production of clear sputum. Particularly worse when she undergoes dialysis She feels that her reading is getting a little more short. She's been using her home nebulizer which helps a little bit. She doesn't have a prescription for a metered-dose inhaler. Her energy levels she describes as being fair. Her appetite is up and down. She began neratinib on 07/01. Within a day or 2 she had onset of frequent diarrhea and was emptying her colostomy bag up to 5-6 times a day. It was all watery stool. She also had nausea in conjunction with that the did not take any antiemetic medication. She was inconsistent about using Imodium at first. She stop medication temporarily while she was on vacation. She returned about a week ago. No further diarrhea. PMH, medications and allergies personally reviewed by me today. Any changes documented in appropriate section. ROS: Constitutional: Denies episodes of night sweats. Neuro: Denies POND, vertigo and imbalance. HEENT: No recent change in voice, vision or hearing. CVS: Denies exertional chest pain, PND, orthopnea and LE edema. GI: Denies reflux and abdominal pain. No symptoms of stomatitis. : Still gets small amount of urine. Endo: No hot flashes. Derm: No rash. Heme: No unusual bleeding or bruising. Psych: Normal mood. PHYSICAL EXAM: Vitals: Blood pressure 161/72, pulse 95, temperature 36.8 ?C (98.2 ?F), temperature source Oral, weight 81.6 kg (180 lb). Well-appearing and in no acute distress. EYES: Sclerae are anicteric bilaterally. NECK: Supple. LYMPHATIC: There is no palpable cervical, supraclavicular adenopathy. RESPIRATORY: She has diminished breath sounds all throughout. R > L. No wheeze or rhonchi. CARDIOVASCULAR: Rhythm is regular. ABDOMEN: The abdomen is nondistended. No tenderness. Extremities: Free of edema. SKIN: No jaundice or rash. No petechiae. 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 No focal motor weakness. 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 -ER/KS negative tumor. -She tolerated single agent Taxol symptomatically very well but required RBC transfusional support. -Foundation 1 testing suggested potential role for neratinib. -She hasn't really had a fair trial of neratinib. However in order to increase compliance I recommended that she start back with 4 tablets a day. I also gave her prescription for Lomotil to use. I will ask her nurse coordinator to follow-up closely with her to be sure she is taking antidiarrheal and antiemetic medication on a consistent basis. -I personally reviewed her CT chest images and agree with the radiologist's interpretation. -We will plan repeat CT scan after she's had consistent therapy for a proximally 6-8 weeks. -Previously discussed advanced directives and healthcare power of contracts attorney. Plan: -Restart neratinib with 4 tablets daily. -Imodium according to package insert instructions. -Use Lomotil in conjunction with Imodium 1-2 tablets every 6 hours as needed. -Office visit with lab work in about 6 weeks. -Rx to refill albuterol MDI sent to her pharmacy. Eric Arteaga DO Referring Provider: ERIC ARTEAGA [[id number]] Allergies As of Date: 07/25/2017 (No Known Allergies) Date Reviewed: 07/25/2017 Reviewed by: Jacque Jeter, RN, RN - Fully Assessed Primary Visit Diagnosis: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] Other Visit Diagnoses:Malignant neoplasm metastatic to right lung (HCC) [C78.01] Chemotherapy induced diarrhea [K52.1, T45.1X5A] Cough [R05] Order(s):diphenoxylate-atropine (LOMOTIL) 2.5-0.025 mg per tabletTake 1-2 tablets by mouth every 6 hours as needed for Diarrhea for up to 14 days.Disp: 60 tabletRfl: 0 albuterol HFA (PROAIR HFA) 90 mcg/actuation inhalerInhale 2 Puffs as instructed every 4 hours as needed.Disp: 1 InhalerRfl: 11 Follow-up and Disposition History Recorded Prescriptions as of 07/25/2017 Sig: DIPHENOXYLATE-ATROPINE 2.5 MG* Take 1-2 tablets by mouth pipo* ALBUTEROL SULFATE HFA 90 MCG/* Inhale 2 Puffs as instructed * NERATINIB 40 MG TABLET Take 6 tablets by mouth once * ONDANSETRON HCL 8 MG TABLET Take 1 tablet by mouth every * LISINOPRIL 20 MG TABLET Take 1 tablet by mouth twice * ERGOCALCIFEROL (VITAMIN D2) 5* Take 1 capsule by mouth once * ALBUTEROL SULFATE 2.5 MG/3 ML* Use 3 mL via nebulizer every * CLOBETASOL 0.05 % TOPICAL CRE* Apply 1 application to affect* FOLIC ACID 1 MG TABLET Take 1 tablet by mouth once d* STOOL SOFTENER 100 MG CAPSULE TAKE 1 CAPSULE TWICE A DAY AMLODIPINE 10 MG TABLET Take 10 mg by mouth once adolfo* FAMOTIDINE 20 MG TABLET Take 1 tablet by mouth twice * CALCIUM ACETATE 667 MG TABLET Take 667 mg by mouth three ti* VITAMIN B COMPLEX AND VITAMIN* Take 1 capsule by mouth once * ACETAMINOPHEN 325 MG TABLET Take 650 mg by mouth every 6 * Problem List As Of Date 07/25/2017 Noted Resolved Obesity [E66.9] INVALID FOR*09/13/2010 Pallor [R23.1] INVALID FOR*07/10/2009 LBP (low back pain) [M54.5] INVALID FOR*10/25/2012 Vomiting [R11.10] INVALID FOR*09/13/2010 Anemia due to blood loss [D50.0] INVALID FOR*12/27/2009 Dyspnea [R06.00] INVALID FOR*08/26/2009 Chest Pain [R07.9] INVALID FOR*08/26/2009 Cervix cancer [C53.9] INVALID FOR*10/25/2012 More... 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 Radiation cystitis [N30.40] INVALID FOR*10/25/2012 S/P ileal conduit [Z93.6] INVALID FOR*10/25/2012 SUMMARY [V999.95] INVALID FOR* Priority: A More... Progressively worsening kidney function [N18.9]INVALID FOR*04/03/2017 Priority: B More... Hx of cervical cancer [Z85.41] INVALID FOR* Priority: E More... H/o Renal cell cancer [C64.9] INVALID FOR* Priority: F More... DVT prophylaxis [[id number]] INVALID FOR*11/02/2012 Priority: L More... DISPOSITION AND FOLLOW-UP [V999.01] INVALID FOR*11/02/2012 Priority: M More... Iron deficiency anemia [D50.9] INVALID FOR* Priority: C More... Euthyroid sick syndrome [E07.81] INVALID FOR* Priority: G More... Osteomyelitis [M86.9] INVALID FOR* Priority: D More... Renal failure [N19] INVALID FOR*04/03/2017 End stage renal disease (HCC) [N18.6] INVALID FOR*04/03/2017 Anemia [D64.9] Primary lung cancer with metastasis from lung t*INVALID FOR*09/22/2016 Right middle lobe pneumonia [J18.1] INVALID FOR* Chronic kidney disease, stage V (HCC) [N18.5] More... Cancer of trachea, bronchus, and lung (HCC) [C3*INVALID FOR* More... 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] INVALID FOR* Dialysis patient (HCC) [Z99.2] INVALID FOR* Essential hypertension with goal blood pressure*INVALID FOR* Primary lung cancer with metastasis from lung t*INVALID FOR* Diastolic dysfunction [I51.9] INVALID FOR* Mitral valve insufficiency [I34.0] INVALID FOR* Rash and nonspecific skin eruption [R21] INVALID FOR* Elevated TSH [R94.6] INVALID FOR* Dyspepsia [R10.13] INVALID FOR* ESRD on hemodialysis (HCC) [N18.6, Z99.2] INVALID FOR*04/03/2017 Anemia, chronic renal failure, stage 5 (HCC) [N*INVALID FOR* Encounter Status:Closed by ERIC ARTEAGA DO on 07/25/17 CNSW Observed: 07/25/2017 Status: COMPLETED Source: [place] 12:[address] [facility] REPOSITORY Social Work ([place]) YUN NELSON ([id number]) 1960 F Date Time Provider Department 07/25/17 ANEL ARSHAD (SW) During your visit today, we recorded the following information about you: LORNA Mercado 07/25/2017 11:50 AM Signed Social Work Problem Referral Note INFORMATION/REFERRAL : Yun Nelson 57 year old female was referred by [facility] Social Work for the following reason(s): Advance Directive - Living Will, DPAHC, DNR PERSONS INTERVIEWED: patient INTERVENTION: Information AND Referral Service Co-ordination Affect/Mood: The patient is noted as appropriate IDENTIFIED PROBLEMS/NEEDS: Advance Directives Intervention/Referral to be provided:No further intervention required IMPRESSION/PLAN: PEPPER met with patient to complete Advance Directives. PEPPER monitored MH symptoms and assessed needs. Patient denies other needs at this time. F/U APPOINTMENT: LORNA Connolly Allergies As of Date: 07/25/2017 (No Known Allergies) Date Reviewed: 07/25/2017 Reviewed by: Jacque Jeter RN, RN - Fully Assessed Reason for Visit: Social Work Services [507] Prescriptions as of 07/25/2017 Sig: DIPHENOXYLATE-ATROPINE 2.5 MG* Take 1-2 tablets by mouth pipo* ALBUTEROL SULFATE HFA 90 MCG/* Inhale 2 Puffs as instructed * NERATINIB 40 MG TABLET Take 6 tablets by mouth once * ONDANSETRON HCL 8 MG TABLET Take 1 tablet by mouth every * LISINOPRIL 20 MG TABLET Take 1 tablet by mouth twice * ERGOCALCIFEROL (VITAMIN D2) 5* Take 1 capsule by mouth once * ALBUTEROL SULFATE 2.5 MG/3 ML* Use 3 mL via nebulizer every * CLOBETASOL 0.05 % TOPICAL CRE* Apply 1 application to affect* FOLIC ACID 1 MG TABLET Take 1 tablet by mouth once d* STOOL SOFTENER 100 MG CAPSULE TAKE 1 CAPSULE TWICE A DAY AMLODIPINE 10 MG TABLET Take 10 mg by mouth once adolfo* FAMOTIDINE 20 MG TABLET Take 1 tablet by mouth twice * CALCIUM ACETATE 667 MG TABLET Take 667 mg by mouth three ti* VITAMIN B COMPLEX AND VITAMIN* Take 1 capsule by mouth once * ACETAMINOPHEN 325 MG TABLET Take 650 mg by mouth every 6 * Problem List As Of Date 07/25/2017 Noted Resolved Obesity [E66.9] INVALID FOR*09/13/2010 Pallor [R23.1] INVALID FOR*07/10/2009 LBP (low back pain) [M54.5] INVALID FOR*10/25/2012 Vomiting [R11.10] INVALID FOR*09/13/2010 Anemia due to blood loss [D50.0] INVALID FOR*12/27/2009 Dyspnea [R06.00] INVALID FOR*08/26/2009 Chest Pain [R07.9] INVALID FOR*08/26/2009 Cervix cancer [C53.9] INVALID FOR*10/25/2012 More... 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 Radiation cystitis [N30.40] INVALID FOR*10/25/2012 S/P ileal conduit [Z93.6] INVALID FOR*10/25/2012 SUMMARY [V999.95] INVALID FOR* Priority: A More... Progressively worsening kidney function [N18.9]INVALID FOR*04/03/2017 Priority: B More... Hx of cervical cancer [Z85.41] INVALID FOR* Priority: E More... H/o Renal cell cancer [C64.9] INVALID FOR* Priority: F More... DVT prophylaxis [[id number]] INVALID FOR*11/02/2012 Priority: L More... DISPOSITION AND FOLLOW-UP [V999.01] INVALID FOR*11/02/2012 Priority: M More... Iron deficiency anemia [D50.9] INVALID FOR* Priority: C More... Euthyroid sick syndrome [E07.81] INVALID FOR* Priority: G More... Osteomyelitis [M86.9] INVALID FOR* Priority: D More... Renal failure [N19] INVALID FOR*04/03/2017 End stage renal disease (HCC) [N18.6] INVALID FOR*04/03/2017 Anemia [D64.9] Primary lung cancer with metastasis from lung t*INVALID FOR*09/22/2016 Right middle lobe pneumonia [J18.1] INVALID FOR* Chronic kidney disease, stage V (HCC) [N18.5] More... Cancer of trachea, bronchus, and lung (HCC) [C3*INVALID FOR* More... 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] INVALID FOR* Dialysis patient (HCC) [Z99.2] INVALID FOR* Essential hypertension with goal blood pressure*INVALID FOR* Primary lung cancer with metastasis from lung t*INVALID FOR* Diastolic dysfunction [I51.9] INVALID FOR* Mitral valve insufficiency [I34.0] INVALID FOR* Rash and nonspecific skin eruption [R21] INVALID FOR* Elevated TSH [R94.6] INVALID FOR* Dyspepsia [R10.13] INVALID FOR* ESRD on hemodialysis (HCC) [N18.6, Z99.2] INVALID FOR*04/03/2017 Anemia, chronic renal failure, stage 5 (HCC) [N*INVALID FOR* Encounter Status:Closed by ANEL ARSHAD on 07/25/17 [place] Observed: 07/24/2017 Status: COMPLETED Source: [place] 12:[address] [facility] REPOSITORY Patient Outreach ([facility]) YUN NELSON ([id number]) 1960 F Date Time Provider Department 07/24/17 LAWRENCE DOZIER [facility] During your visit today, we recorded the following information about you: Allergies As of Date: 07/24/2017 (No Known Allergies) Date Reviewed: 07/13/2017 Reviewed by: Lakshmi Machado Ct - Fully Assessed Visit Diagnosis:Medication management [Z79.899] Order(s):BASIC METABOLIC PNL [SQBMP] Order #: [id number] FUTURE Prescriptions as of 07/24/2017 Sig: NERATINIB 40 MG TABLET Take 6 tablets by mouth once * Patient not taking: Reported on 10/09/2017 ONDANSETRON HCL 8 MG TABLET Take 1 tablet by mouth every * X AMOXICILLIN 500 MG-POTASSIUM * Take 1 tablet by mouth once d* LISINOPRIL 20 MG TABLET Take 1 tablet by mouth twice * ERGOCALCIFEROL (VITAMIN D2) 5* Take 1 capsule by mouth once * X ALBUTEROL SULFATE 2.5 MG/3 ML* Use 3 mL via nebulizer every * CLOBETASOL 0.05 % TOPICAL CRE* Apply 1 application to affect* FOLIC ACID 1 MG TABLET Take 1 tablet by mouth once d* STOOL SOFTENER 100 MG CAPSULE TAKE 1 CAPSULE TWICE A DAY AMLODIPINE 10 MG TABLET Take 10 mg by mouth once adolfo* FAMOTIDINE 20 MG TABLET Take 1 tablet by mouth twice * CALCIUM ACETATE 667 MG TABLET Take 667 mg by mouth three ti* VITAMIN B COMPLEX AND VITAMIN* Take 1 capsule by mouth once * ACETAMINOPHEN 325 MG TABLET Take 650 mg by mouth every 6 * Problem List As Of Date 07/24/2017 Noted Resolved Obesity [E66.9] INVALID FOR*09/13/2010 Pallor [R23.1] INVALID FOR*07/10/2009 LBP (low back pain) [M54.5] INVALID FOR*10/25/2012 Vomiting [R11.10] INVALID FOR*09/13/2010 Anemia due to blood loss [D50.0] INVALID FOR*12/27/2009 Dyspnea [R06.00] INVALID FOR*08/26/2009 Chest Pain [R07.9] INVALID FOR*08/26/2009 Cervix cancer [C53.9] INVALID FOR*10/25/2012 More... 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 Radiation cystitis [N30.40] INVALID FOR*10/25/2012 S/P ileal conduit [Z93.6] INVALID FOR*10/25/2012 SUMMARY [V999.95] INVALID FOR* Priority: A More... Progressively worsening kidney function [N18.9]INVALID FOR*04/03/2017 Priority: B More... Hx of cervical cancer [Z85.41] INVALID FOR* Priority: E More... H/o Renal cell cancer [C64.9] INVALID FOR* Priority: F More... DVT prophylaxis [[id number]] INVALID FOR*11/02/2012 Priority: L More... DISPOSITION AND FOLLOW-UP [V999.01] INVALID FOR*11/02/2012 Priority: M More... Iron deficiency anemia [D50.9] INVALID FOR* Priority: C More... Euthyroid sick syndrome [E07.81] INVALID FOR* Priority: G More... Osteomyelitis [M86.9] INVALID FOR* Priority: D More... Renal failure [N19] INVALID FOR*04/03/2017 End stage renal disease (HCC) [N18.6] INVALID FOR*04/03/2017 Anemia [D64.9] Primary lung cancer with metastasis from lung t*INVALID FOR*09/22/2016 Right middle lobe pneumonia [J18.1] INVALID FOR* Chronic kidney disease, stage V (HCC) [N18.5] More... Cancer of trachea, bronchus, and lung (HCC) [C3*INVALID FOR* More... 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] INVALID FOR* Dialysis patient (HCC) [Z99.2] INVALID FOR* Essential hypertension with goal blood pressure*INVALID FOR* Primary lung cancer with metastasis from lung t*INVALID FOR* Diastolic dysfunction [I51.9] INVALID FOR* Mitral valve insufficiency [I34.0] INVALID FOR* Rash and nonspecific skin eruption [R21] INVALID FOR* Elevated TSH [R79.89] INVALID FOR* Dyspepsia [R10.13] INVALID FOR* ESRD on hemodialysis (HCC) [N18.6, Z99.2] INVALID FOR*04/03/2017 Anemia, chronic renal failure, stage 5 (HCC) [N*INVALID FOR* Encounter Status:Closed by LEIDY CALLOWAY on 11/30/17 PROGRESS Observed: 07/18/2017 Status: COMPLETED Source: [place] 4:[address] [facility] REPOSITORY O ID: [id number] Author: Lakshmi Caldwell Service: (none) Author Type: (none) Type: Progress Notes Filed: 07/18/2017 4:02 PM Note Text: Radiology Service Progress Note PATIENT NAME: Yun Nelson DATE OF SERVICE: July 18, 2017 TIME: 4:02 PM PATIENT IDENTITY VERIFICATION COMPLETED USING TWO (2) METHODS: Patient confirmed name verbally and Date of . PATIENT GENDER DATA: Female. status: : No status: NO. PATIENT RELEVANT IMPLANT DATA REVIEWED: Not Applicable CONTRAST INDUCED NEPHROPATHY RISK FACTORS: Patient age > 60 years CREATININE: Creatinine Date Value Ref Range Status 09/18/2016 8.62 (H) 0.58 - 0.96 mg/dL Final 08/04/2015 5.71 (H) 0.70 - 1.40 mg/dL Final 04/07/2015 5.41 (H) 0.70 - 1.40 mg/dL Final Creatinine, Whole Blood (iSTAT) Date Value Ref Range Status 03/28/2017 6.10 (H) 0.70 - 1.40 mg/dL Final 02/28/2017 6.00 (H) 0.70 - 1.40 mg/dL Final Comment: Result rechecked. 02/16/2017 5.70 (H) 0.70 - 1.40 mg/dL Final eGFR-All Other Races Date Value Ref Range Status 03/28/2017 7 . Final Comment: eGFR (Estimated GFR) Units of measure: mL/min/1.73 meters squared eGFR is derived from the reexpressed MDRD Study equation using the following parameters: serum creatinine, age, gender and race. The creatinine assay has been calibrated to be traceable to IDMS. An eGFR <60 mL/min/1.73m2 for >3 months is consistent with chronic kidney disease. Refer to KDOQI guidelines for clinical interpretation. In patients with unstable renal function, e.g. those with acute kidney injury, the eGFR may not accurately reflect actual GFR. eGFR- Date Value Ref Range Status 03/28/2017 9 Final P.O.C.T. RESULTS: POC done: Yes, See Lab Tab July 18, 2017 RADIOLOGIST NOTIFIED?: No ALLERGIES: Reviewed and unchanged CONTRAST ALLERGY: NO. PERIPHERAL IV ACCESS: Ambulatory: IV type: A peripheral IV was started in the Left antecubital site with a Angio cath: 20 gauge., Site assessment: Clean,Dry and Intact, Site disposition Discontinued RADIOLOGY DEPARTMENT: CT; Exam(s) Completed: Chest Abdomen Pelvis SIGNED BY: Lakshmi Machado Ct July 18, 2017 4:[address] CHEST W IVCON Observed: 07/18/2017 Status: F Source: [place] 2:[address] [facility] REPOSITORY * * *Final Report* * * DATE OF EXAM: Jul 18 2017 2:39PM [facility] 0539 - CT CHEST W IVCON / PROCEDURE REASON: multiple diagnoses * * * * Physician Interpretation * * * * EXAMINATION: CHEST CT WITH CONTRAST CLINICAL HISTORY: Malignant neoplasm of endocervix Secondary malignant neoplasm of right lung Secondary malignant neoplasm of other respiratory organs Dependence on renal dialysis Technique: Spiral CT acquisition of the chest from the thoracic inlet to the upper abdomen following IV contrast. MQ: CTCWR_5 Contrast: 100 mL Omnipaque [address] Dose-Length Product: 1403 mGy*cm CT Dose Reduction Employed: Automated exposure control (AEC) Comparison: CT chest on 03/26/2017 RESULT: Limitations: None. Lines, tubes, and devices: None. Lung parenchyma and pleura: There is occlusion of the right middle lobe bronchus, with triangular opacity in the right middle lobe. However, there appears to be a low attenuation mass lesion within the atelectatic right middle lobe on this contrast CT exam (not appreciated on the prior study without intravenous contrast). There are right-sided perihilar opacities with right-sided small pleural effusion and nodularity along the pleural surface. Similar reticular opacities in the right upper lung. There is a stable 1.1 x 0.8 cm nodule along the left posterior pleural surface. Stable 5 mm nodule in the left upper lobe, series 5 images 63. The previously mentioned new 5 mm nodule in the left upper lobe has resolved. No other nodules appreciated. No pneumothorax. Thoracic inlet, heart, and mediastinum: The thyroid gland is only partially visualized. No supraclavicular adenopathy. Stable axillary lymph nodes. There are enlarged mediastinal and right hilar lymph nodes, much better visualized on the current study with intravenous contrast. Significant enlargement of the right subclavian vein with tortuous collateral veins along the right axilla/chest wall. The thoracic aorta, central pulmonary arteries and cardiac chambers have been stable, without pericardial effusion/thickening. Bones and soft tissues: Unchanged. Upper abdomen: A dedicated CT abdomen and pelvis was performed concurrently and will be reported separately. IMPRESSION: Right perihilar consolidative opacities with masslike lesion within the atelectatic right middle lobe, together with right-sided pleural effusion and nodularity of the pleural surface. The findings are highly suspicious for malignancy. Enlarged mediastinal and right hilar lymph nodes concerning for metastases. Stable left lung nodules, with interval resolution of one of the previously mentioned nodules. Solar Maintenance Technician: ISAEL Transcribe Date/Time: Jul 19 2017 2:34P Dictated by : COLLEEN KILLIAN MD This examination was interpreted and the report reviewed and electronically signed by: COLLEEN KILLIAN MD on Jul 19 2017 6:39PM EST [id number] CT ABD/PEL W IVCON Observed: 07/18/2017 Status: F Source: [place] 2:[address] [facility] REPOSITORY * * *Final Report* * * DATE OF EXAM: Jul 18 2017 2:39PM [facility] 0530 - CT ABD/PEL W IVCON / PROCEDURE REASON: multiple diagnoses * * * * Physician Interpretation * * * * EXAMINATION: CT ABDOMEN AND PELVIS WITH IV CONTRAST CLINICAL HISTORY: Restaging of endometrial cancer TECHNIQUE: CT of the abdomen and pelvis was performed using standard technique, scanning from just above the dome of the diaphragm to the symphysis pubis. MQ: CTAP_3 Contrast: IV: 100 ml of Omnipaque 300 Oral: 50 ml of 50ML Omnipaque [address] Radiation dose: Integrated Dose-length product (DLP) for this visit = 1403 mGy*cm. CT Dose Reduction Employed: Automated exposure control (AEC) COMPARISON: 09/22/[address] RESULT: Liver: No mass. Normal-appearing liver contour Biliary: No bile duct dilation. Small gas containing gallstones are again noted. No abnormal gallbladder distention. Spleen: No mass. Splenomegaly at 17 cm is again noted. Pancreas: No mass or duct dilation. Adrenals: No mass. Kidneys: Previous left nephrectomy. Tiny atrophic right kidney, more so than previously, draining to ileal loop urostomy. GI tract: Colostomy and large parastomal hernia laterally on the lower left. Hernia contains large and small bowel without obstruction. Findings were present previously. Lymph nodes: No abdominal or pelvic lymphadenopathy. Mesentery/Peritoneum: Mild ascitic fluid is seen within the hernia and in the pelvis. No definite peritoneal nodules are noted. Retroperitoneum: No mass. Vasculature: The celiac axis and SMA are patent. The portal vein and branches, splenic vein, SMV, and hepatic veins are patent. Prominent serpiginous splenic vein could be due to portal venous hypertension and was present previously. Pelvis: Irregular gas collection in the area of the previous vagina communicating with the perineum is again noted. No focal abnormal fluid collection is noted. Bones/Soft Tissues: Intact Lower thorax: See today's CT chest report, reported separately IMPRESSION: Splenomegaly and suspected portal hypertension are again noted. Mild ascitic fluid. Large parastomal hernia containing bowel without obstruction again noted. No definite sign of active neoplasm noted. Solar Maintenance Technician: ISAEL Transcribe Date/Time: Jul 20 2017 8:13A Dictated by : JERSON ARENAS MD This examination was interpreted and the report reviewed and electronically signed by: JERSON ARENAS MD on Jul 20 2017 8:26AM EST [id number] VAISHNAVI CREATININE Collected: 07/18/2017 Status: F Source: [place] 1:[address] [facility] REPOSITORY TYPE CODE TESTS RESULT OUT OF REFERENCE UNITS RANGE LAB WCRET 0.7-1.4 mg/dL Vaishnavi High Creatinine 7.7 Result Comment: Called to and read back by: Dawna with Dr Arteaga's office 07/18/17 15:23 [place] PROGRESS Observed: 06/20/2017 Status: COMPLETED Source: [place] 10:[address] [facility] REPOSITORY HNO ID: [id number] Author: Jaymie (Pharmacist)Ida Service: (none) Author Type: Pharmacist Type: Progress Notes Filed: 06/25/2017 2:49 PM Note Text: [facility] received prescription(s) for neratinib (Nerlynx) from Dr. Arteaga's office. Benefits investigation was conducted, indicating that a prior authorization was required. PA was initiated and approved with the details listed below. Prior authorization was approved AFTER APPEAL. Plan Name: [facility] / [employer] Medicare Advantage LIS PA reference number: [id number] Approval Dates: 06/20/17 - 02/18/18 Currently, [facility] does NOT have access to dispense this medication. Will pend Rx for Dr. Arteaga to sign to go to [facility] who has access. For reference, their pharmacy phone number is [phone]. Thanks! No further action by [facility]. Ida Coon, PharmD Clinical Pharmacist, Oncology, Growth Hormone [facility] Pharmacy P: , F: [phone] PROGRESS Observed: 06/20/2017 Status: COMPLETED Source: [place] 10:[address] [facility] REPOSITORY HNO ID: [id number] Author: Magaly Fofana (Rn) Service: (none) Author Type: Registered Nurse Type: Progress Notes Filed: 06/25/2017 2:49 PM Note Text: [facility] received prescription for Nerlynx from Dr. Arteaga. PA was initiated, completed PA form along with pertinent clinical documentation and journal articles faxed as urgent request and pending review. Plan Name: [facility] Plan Agent: - Phone/Fax: / Case: - Timeline: not provided Discussed with Ida Fofana RN PROGRESS Observed: 06/20/2017 Status: COMPLETED Source: [place] 10:[address] [facility] REPOSITORY HNO ID: [id number] Author: Magaly Fofana (Rn) Service: (none) Author Type: Registered Nurse Type: Progress Notes Filed: 06/25/2017 2:49 PM Note Text: [facility] received fax denial letter from [facility] for medication Nerlynx; denial reason: off label Expedited appeal to be submitted Discussed with Ida Fofana RN Pipe Jeeper PROGRESS Observed: 06/20/2017 Status: COMPLETED Source: [place] 10:[address] [facility] REPOSITORY HNO ID: [id number] Author: Magaly Fofana (Rn) Service: (none) Author Type: Registered Nurse Type: Progress Notes Filed: 06/25/2017 2:49 PM Note Text: [facility] received fax denial letter from [facility] / [facility] part D for medication Nerlynx; denial reason: off label use Expedited appeal submitted on behalf of Dr. Arteaga with a letter of medical necessity and pertinent clinical documentation via fax to # Discussed with Ida Fofana RN Pipe Jeeper PROGRESS Observed: 06/20/2017 Status: COMPLETED Source: [place] 10:[address] [facility] REPOSITORY HNO ID: [id number] Author: Magaly Fofana (Helder) Service: (none) Author Type: Registered Nurse Type: Progress Notes Filed: 06/25/2017 2:49 PM Note Text: [facility] received prescription for Nerlynx from Dr. Arteaga. PA was approved on appeal with details listed below. Plan Name: [facility] PA reference number: [id number] Approval Dates: 06/20/2017 - 02/18/2018 Discussed with Ida Fofana RN PROGRESS Observed: 06/15/2017 Status: COMPLETED Source: [place] 3:[address] [facility] REPOSITORY HNO ID: [id number] Author: Anel Arshad (Sw) Service: (none) Author Type: Prime Minister Type: Progress Notes Filed: 06/15/2017 3:50 PM Note Text: Social Work Problem Referral Note INFORMATION/REFERRAL : Yun Nelson 57 year old female was referred by [facility] Social Work for the following reason(s): Advance Directive - Living Will, DPAHC, DNR PERSONS INTERVIEWED: patient INTERVENTION: Phone Contact Affect/Mood: The patient is noted as appropriate IDENTIFIED PROBLEMS/NEEDS: Advance Directives Intervention/Referral to be provided:Arrangements made for continuity of care IMPRESSION/PLAN: SW called patient to discuss Advance Directives. Patient receives dialysis on Tuesdays and at a facility near our building, so patient says she can come here afterward one of those days to complete paperwork (around 11). SW educated patient on what Advance Directives are and will go over this again when she comes to office. Patient agreeable. F/U APPOINTMENT: LORNA Connolly PROGRESS Observed: 06/15/2017 Status: COMPLETED Source: [place] 9:[address] [facility] REPOSITORY O ID: [id number] Author: Eric Arteaga Service: (none) Author Type: Physician Type: Progress Notes Filed: 06/15/2017 12:03 PM Note Text: Diagnoses: Cervical cancer and RCC. HPI: Underwent a left sided laparoscopic nephrectomy. The pathology demonstrated a T3 (7 cm) clear cell, renal cell carcinoma. Additionally, at the same time patient underwent a laparoscopic, left pelvic, lymph node dissection and right, periaortic, lymph node biopsy with lysis of adhesions. It appeared that the possible pelvic adenopathy visualized on a PET scan may have been due to a left sided hydrosalpinx and possibly enlarged left ovary. A one enlarged retroperitoneal lymph node was visualized, it was removed and it was found not to contain metastatic cancer. Previous therapy: 1. 04/29/2010 - multiple cervical and vaginal biopsies. 2. 08/17/2009 - Laparoscopic left pelvic lymph node dissection and right periaortic lymph node biopsies, lysis of adhesions. one enlarged retroperitoneal lymph node was visualized, it was removed and it was found not to contain metastatic cancer 3. 08/17/2009 - Laparoscopic left radical nephrectomy. The pathology demonstrated a T3 (7 cm) clear cell, renal cell carcinoma. (Dr Ac) 4. Concurrent Cisplatin/RT 09/13/09 - 10/15/09. Total RT dose 4500 cGy in 25 fx. 5. Shaheen template for brachytherapy with Dr. Vasquez, total dose 2250cGy in 5 fractions 10/27/09-10/29/09. 6. 04/29/2010 - Multiple cervical and vaginal biopsies, negative for recurrent disease 7. 06/10/2010 - Exploratory laparotomy, lysis of adhesions, bilateral pelvic lymphadenectomy. This case was done in conjunction with Dr. 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 8. 06/22/2011 - Exam under anesthesia with cystoscopy. This case was done in conjunction with Dr. Ernesto Burton, who performed exam under anesthesia, biopsies, and curettage of the right pubic ramus with irrigation. 9. 09/07/2011 - Total pelvic exenteration with ileal conduit (Dr. Strong), creation of neovagina (Dr. Polanco) and right pubic ramus biopsies (Dr. Burton). 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 All lymph nodes negative. 10. 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 S/P SBRT to RML (50 Gy in 5 fx from 01/18/2015-01/27/2015. 11. Palliative radiation to the trachea and right lung 10/09/16 to 10/30/16. EGD 11/2013: The examined esophagus was normal. The entire examined stomach was normal. Biopsies were taken with a cold forceps for histology. Estimated blood loss was minimal. The examined duodenum was normal. Biopsies were taken with a cold forceps for evaluation of celiac disease. Estimated blood loss was minimal. Impression: - Normal esophagus. - Normal stomach. Biopsied. - Normal examined duodenum. Biopsied. Colonoscopy 11/2013: The colon (entire examined portion) appeared normal. Impression: - The entire examined colon is normal. Recent CT Noncontrast CT scan of the chest demonstrating interval enlargement of a right middle lobe medial irregularly marginated soft tissue mass. There is subpleural fat deposition at the left lung base with 2 small nodules, the more medial slightly increased in size. There are also 2 diaphragmatic pleural-based nodules which may be stable. She had been undergoing dialysis for about a year. She underwent pelvic exoneration. She developed obstructive uropathy leading to end-stage renal disease. I received a brief note from her dial brusher indicating that the patient has been receiving maximum doses of Procrit and she has been running hemoglobin in the 's. 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 S/P SBRT to RML (50 Gy in 5 fx from 01/18/2015-01/27/2015. Previous therapy: As above. 1) Radiation to trachea and right lung. Current therapy: 1) Taxol. Presents for ongoing oncologic management. Interim history: She was admitted again last week for pneumonia. Presented with shortness of breath and oxygen saturations 50%. She underwent diuresis and treatment with ceftriaxone and azithromycin. Oxygenation improved. She was febrile at the time of admission as well. Fevers cleared. She says she is feeling better but still coughing a lot. No fever since discharge. Her appetite is only fair. PMH, medications and allergies personally reviewed by me today. Any changes documented in appropriate section. ROS: Constitutional: Denies episodes of night sweats. Neuro: Denies POND, vertigo and imbalance. HEENT: No recent change in voice, vision or hearing. CVS: Denies exertional chest pain, PND, orthopnea and LE edema. GI: Denies reflux, n/v, change in bowel habits and abdominal pain. No symptoms of stomatitis. : Still gets small amount of urine. Endo: No hot flashes. Derm: No rash. Heme: No unusual bleeding or bruising. Psych: Normal mood. PHYSICAL EXAM: Vitals: Blood pressure 130/61, pulse 93, temperature 36.6 ?C (97.8 ?F), weight 83.2 kg (183 lb 8 oz). Well-appearing and in no acute distress. EYES: Sclerae are anicteric bilaterally. NECK: Supple. LYMPHATIC: There is no palpable cervical, supraclavicular adenopathy. RESPIRATORY: She has diminished breath sounds all throughout. Right midlung field even more diminished. No wheezes. Faint coarse rhonchi right side. CARDIOVASCULAR: Rhythm is regular. ABDOMEN: The abdomen is nondistended. No tenderness. Extremities: Free of edema. SKIN: No jaundice or rash. No petechiae. 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 No focal motor weakness. 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 -ER/KS negative tumor. -She is tolerating single agent Taxol symptomatically very well. -Has required RBC transfusional support. -I reviewed the recommendations of the genomic stem or board. Neurontin and is a consideration. I discussed this with the patient and her mother today. I have recommended we stop cytotoxic chemotherapy. I discussed the pharmacokinetics of the drug with her area and it will be safe to use with a dialysis patient. Diarrhea can be a major concern however and dehydration could be a life-threatening issue for her. Nonetheless she does want to try something more for the malignancy. -We also discussed the difficulties hadn't actually imaging her disease. I'm going to discuss with her dial brusher the timing of contrast for a CT of the chest and possibly abdomen and pelvis as well. PET scan is also going to be ordered. -I also spent time today talking about advanced directives and healthcare power of contracts attorney. She does not have one. I strongly encouraged her to do so. She was previously given paperwork by our social service liaison. I will ask her to reach out to the patient again to rediscuss these issues. After a long discussion on this the patient is very clear that she wants to be full code for now. Plan: -Stop paclitaxel/Herceptin. -Rx for Neurontin M. -I will communicate with her dial brusher regarding timing of imaging studies. Eric Arteaga DO CNOVSP Observed: 06/15/2017 Status: COMPLETED Source: [place] 9:[address] [facility] REPOSITORY Visit (SP) Office ([place]) YUN NELSON ([id number]) 1960 F Date Time Provider Department 06/15/17 9:20 AM ERIC ARTEAGA During your visit today, we recorded the following information about you: Temperature Pulse Blood pressure Weight 97.8 degrees 93/minute 130/61 83.2 kg Dorothy Tam LPN 06/15/2017 9:36 AM Signed Est patient. Admitted to [facility] for pneumonia 06/07-06/11/2017. Dorothy Arteaga DO 06/15/2017 12:03 PM Signed Diagnoses: Cervical cancer and RCC. HPI: Underwent a left sided laparoscopic nephrectomy. The pathology demonstrated a T3 (7 cm) clear cell, renal cell carcinoma. Additionally, at the same time patient underwent a laparoscopic, left pelvic, lymph node dissection and right, periaortic, lymph node biopsy with lysis of adhesions. It appeared that the possible pelvic adenopathy visualized on a PET scan may have been due to a left sided hydrosalpinx and possibly enlarged left ovary. A one enlarged retroperitoneal lymph node was visualized, it was removed and it was found not to contain metastatic cancer. Previous therapy: 1. 04/29/2010 - multiple cervical and vaginal biopsies. 2. 08/17/2009 - Laparoscopic left pelvic lymph node dissection and right periaortic lymph node biopsies, lysis of adhesions. one enlarged retroperitoneal lymph node was visualized, it was removed and it was found not to contain metastatic cancer 3. 08/17/2009 - Laparoscopic left radical nephrectomy. The pathology demonstrated a T3 (7 cm) clear cell, renal cell carcinoma. (Dr Ac) 4. Concurrent Cisplatin/RT 09/13/09 - 10/15/09. Total RT dose 4500 cGy in 25 fx. 5. Shaheen template for brachytherapy with Dr. Vasquez, total dose 2250cGy in 5 fractions 10/27/09-10/29/09. 6. 04/29/2010 - Multiple cervical and vaginal biopsies, negative for recurrent disease 7. 06/10/2010 - Exploratory laparotomy, lysis of adhesions, bilateral pelvic lymphadenectomy. This case was done in conjunction with Dr. 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 8. 06/22/2011 - Exam under anesthesia with cystoscopy. This case was done in conjunction with Dr. Ernesto Burton, who performed exam under anesthesia, biopsies, and curettage of the right pubic ramus with irrigation. 9. 09/07/2011 - Total pelvic exenteration with ileal conduit (Dr. Strong), creation of neovagina (Dr. Polanco) and right pubic ramus biopsies (Dr. Burton). 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 All lymph nodes negative. 10. 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 S/P SBRT to RML (50 Gy in 5 fx from 01/18/2015-01/27/2015. 11. Palliative radiation to the trachea and right lung 10/09/16 to 10/30/16. EGD 11/2013: The examined esophagus was normal. The entire examined stomach was normal. Biopsies were taken with a cold forceps for histology. Estimated blood loss was minimal. The examined duodenum was normal. Biopsies were taken with a cold forceps for evaluation of celiac disease. Estimated blood loss was minimal. Impression: - Normal esophagus. - Normal stomach. Biopsied. - Normal examined duodenum. Biopsied. Colonoscopy 11/2013: The colon (entire examined portion) appeared normal. Impression: - The entire examined colon is normal. Recent CT Noncontrast CT scan of the chest demonstrating interval enlargement of a right middle lobe medial irregularly marginated soft tissue mass. There is subpleural fat deposition at the left lung base with 2 small nodules, the more medial slightly increased in size. There are also 2 diaphragmatic pleural-based nodules which may be stable. She had been undergoing dialysis for about a year. She underwent pelvic exoneration. She developed obstructive uropathy leading to end-stage renal disease. I received a brief note from her dial brusher indicating that the patient has been receiving maximum doses of Procrit and she has been running hemoglobin in the 's. 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 S/P SBRT to RML (50 Gy in 5 fx from 01/18/2015-01/27/2015. Previous therapy: As above. 1) Radiation to trachea and right lung. Current therapy: 1) Taxol. Presents for ongoing oncologic management. Interim history: She was admitted again last week for pneumonia. Presented with shortness of breath and oxygen saturations 50%. She underwent diuresis and treatment with ceftriaxone and azithromycin. Oxygenation improved. She was febrile at the time of admission as well. Fevers cleared. She says she is feeling better but still coughing a lot. No fever since discharge. Her appetite is only fair. PMH, medications and allergies personally reviewed by me today. Any changes documented in appropriate section. ROS: Constitutional: Denies episodes of night sweats. Neuro: Denies POND, vertigo and imbalance. HEENT: No recent change in voice, vision or hearing. CVS: Denies exertional chest pain, PND, orthopnea and LE edema. GI: Denies reflux, n/v, change in bowel habits and abdominal pain. No symptoms of stomatitis. : Still gets small amount of urine. Endo: No hot flashes. Derm: No rash. Heme: No unusual bleeding or bruising. Psych: Normal mood. PHYSICAL EXAM: Vitals: Blood pressure 130/61, pulse 93, temperature 36.6 ?C (97.8 ?F), weight 83.2 kg (183 lb 8 oz). Well-appearing and in no acute distress. EYES: Sclerae are anicteric bilaterally. NECK: Supple. LYMPHATIC: There is no palpable cervical, supraclavicular adenopathy. RESPIRATORY: She has diminished breath sounds all throughout. Right midlung field even more diminished. No wheezes. Faint coarse rhonchi right side. CARDIOVASCULAR: Rhythm is regular. ABDOMEN: The abdomen is nondistended. No tenderness. Extremities: Free of edema. SKIN: No jaundice or rash. No petechiae. 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 No focal motor weakness. 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 -ER/KS negative tumor. -She is tolerating single agent Taxol symptomatically very well. -Has required RBC transfusional support. -I reviewed the recommendations of the genomic stem or board. Neurontin and is a consideration. I discussed this with the patient and her mother today. I have recommended we stop cytotoxic chemotherapy. I discussed the pharmacokinetics of the drug with her area and it will be safe to use with a dialysis patient. Diarrhea can be a major concern however and dehydration could be a life-threatening issue for her. Nonetheless she does want to try something more for the malignancy. -We also discussed the difficulties hadn't actually imaging her disease. I'm going to discuss with her dial brusher the timing of contrast for a CT of the chest and possibly abdomen and pelvis as well. PET scan is also going to be ordered. -I also spent time today talking about advanced directives and healthcare power of contracts attorney. She does not have one. I strongly encouraged her to do so. She was previously given paperwork by our social service liaison. I will ask her to reach out to the patient again to rediscuss these issues. After a long discussion on this the patient is very clear that she wants to be full code for now. Plan: -Stop paclitaxel/Herceptin. -Rx for Neurontin M. -I will communicate with her dial brusher regarding timing of imaging studies. Eric Arteaga, Referring Provider: SELF [[id number]] Allergies As of Date: 06/15/2017 (No Known Allergies) Date Reviewed: 06/15/2017 Reviewed by: Dorothy Tam LPN - Fully Assessed Reason for Visit: Established Patient [[id number]] Primary Visit Diagnosis: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] Order(s):neratinib 40 mg tabTake 6 tablets by mouth once daily.Disp: 180 tabletRfl: 5 Follow-up and Disposition History Recorded Prescriptions as of 06/15/2017 Sig: AMOXICILLIN 500 MG-POTASSIUM * Take 1 tablet by mouth once d* LISINOPRIL 20 MG TABLET Take 1 tablet by mouth twice * ERGOCALCIFEROL (VITAMIN D2) 5* Take 1 capsule by mouth once * ALBUTEROL SULFATE 2.5 MG/3 ML* Use 3 mL via nebulizer every * CLOBETASOL 0.05 % TOPICAL CRE* Apply 1 application to affect* FOLIC ACID 1 MG TABLET Take 1 tablet by mouth once d* STOOL SOFTENER 100 MG CAPSULE TAKE 1 CAPSULE TWICE A DAY AMLODIPINE 10 MG TABLET Take 10 mg by mouth once adolfo* FAMOTIDINE 20 MG TABLET Take 1 tablet by mouth twice * ONDANSETRON HCL 8 MG TABLET Take 1 tablet by mouth every * CALCIUM ACETATE 667 MG TABLET Take 667 mg by mouth three ti* VITAMIN B COMPLEX AND VITAMIN* Take 1 capsule by mouth once * ACETAMINOPHEN 325 MG TABLET Take 650 mg by mouth every 6 * NERATINIB 40 MG TABLET Take 6 tablets by mouth once * Medication notes this encounter AMOXICILLIN 500 MG-POTASSIUM CLAVULANATE 125 MG TABLET >> Dorothy Tam LPN 06/15/2017 9:05 AM >> DOROTHY TAM LPN Fri Jun 15, 2017 9:05 AM Received from: External Pharmacy Problem List As Of Date 06/15/2017 Noted Resolved Obesity [E66.9] INVALID FOR*09/13/2010 Pallor [R23.1] INVALID FOR*07/10/2009 LBP (low back pain) [M54.5] INVALID FOR*10/25/2012 Vomiting [R11.10] INVALID FOR*09/13/2010 Anemia due to blood loss [D50.0] INVALID FOR*12/27/2009 Dyspnea [R06.00] INVALID FOR*08/26/2009 Chest Pain [R07.9] INVALID FOR*08/26/2009 Cervix cancer [C53.9] INVALID FOR*10/25/2012 More... 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 Radiation cystitis [N30.40] INVALID FOR*10/25/2012 S/P ileal conduit [Z93.6] INVALID FOR*10/25/2012 SUMMARY [V999.95] INVALID FOR* Priority: A More... Progressively worsening kidney function [N18.9]INVALID FOR*04/03/2017 Priority: B More... Hx of cervical cancer [Z85.41] INVALID FOR* Priority: E More... H/o Renal cell cancer [C64.9] INVALID FOR* Priority: F More... DVT prophylaxis [ZMY3698] INVALID FOR*11/02/2012 Priority: L More... DISPOSITION AND FOLLOW-UP [V999.01] INVALID FOR*11/02/2012 Priority: M More... Iron deficiency anemia [D50.9] INVALID FOR* Priority: C More... Euthyroid sick syndrome [E07.81] INVALID FOR* Priority: G More... Osteomyelitis [M86.9] INVALID FOR* Priority: D More... Renal failure [N19] INVALID FOR*04/03/2017 End stage renal disease (HCC) [N18.6] INVALID FOR*04/03/2017 Anemia [D64.9] Primary lung cancer with metastasis from lung t*INVALID FOR*09/22/2016 Right middle lobe pneumonia [J18.1] INVALID FOR* Chronic kidney disease, stage V (HCC) [N18.5] More... Cancer of trachea, bronchus, and lung (HCC) [C3*INVALID FOR* More... 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] INVALID FOR* Dialysis patient (HCC) [Z99.2] INVALID FOR* Essential hypertension with goal blood pressure*INVALID FOR* Primary lung cancer with metastasis from lung t*INVALID FOR* Diastolic dysfunction [I51.9] INVALID FOR* Mitral valve insufficiency [I34.0] INVALID FOR* Rash and nonspecific skin eruption [R21] INVALID FOR* Elevated TSH [R94.6] INVALID FOR* Dyspepsia [R10.13] INVALID FOR* ESRD on hemodialysis (HCC) [N18.6, Z99.2] INVALID FOR*04/03/2017 Anemia, chronic renal failure, stage 5 (HCC) [N*INVALID FOR* Visit Notes: >> Dorothy Tam LPN SunJun 15, 2017 9:05 AM Status: Signed Est patient. Admitted to [facility] for pneumonia 06/07-06/11/2017. Dorothy Tam LPN Encounter Status:Closed by ERIC ARTEAGA DO on 06/15/17 CNSW Observed: 06/15/2017 Status: COMPLETED Source: [place] 12:[address] [facility] REPOSITORY Social Work (HEMA[place]) YUN NELSON ([id number]) 1960 F Date Time Provider Department 06/15/17 ANEL ARSHAD (PEPPER) [place] During your visit today, we recorded the following information about you: LORNA Mercado 06/15/2017 3:50 PM Signed Social Work Problem Referral Note INFORMATION/REFERRAL : Yun Nelson 57 year old female was referred by [facility] Social Work for the following reason(s): Advance Directive - Living Will, DPAHC, DNR PERSONS INTERVIEWED: patient INTERVENTION: Phone Contact Affect/Mood: The patient is noted as appropriate IDENTIFIED PROBLEMS/NEEDS: Advance Directives Intervention/Referral to be provided:Arrangements made for continuity of care IMPRESSION/PLAN: PEPPER called patient to discuss Advance Directives. Patient receives dialysis on Tuesdays and at a facility near our building, so patient says she can come here afterward one of those days to complete paperwork (around 11). PEPPER educated patient on what Advance Directives are and will go over this again when she comes to office. Patient agreeable. F/U APPOINTMENT: PRN LORNA Mercado Allergies As of Date: 06/15/2017 (No Known Allergies) Date Reviewed: 06/15/2017 Reviewed by: Dorothy Tam LPN - Fully Assessed Reason for Visit: Social Work Services [507] Cmt: Advance Directives Prescriptions as of 06/15/2017 Sig: AMOXICILLIN 500 MG-POTASSIUM * Take 1 tablet by mouth once d* NERATINIB 40 MG TABLET Take 6 tablets by mouth once * ONDANSETRON HCL 8 MG TABLET Take 1 tablet by mouth every * LISINOPRIL 20 MG TABLET Take 1 tablet by mouth twice * ERGOCALCIFEROL (VITAMIN D2) 5* Take 1 capsule by mouth once * ALBUTEROL SULFATE 2.5 MG/3 ML* Use 3 mL via nebulizer every * CLOBETASOL 0.05 % TOPICAL CRE* Apply 1 application to affect* FOLIC ACID 1 MG TABLET Take 1 tablet by mouth once d* STOOL SOFTENER 100 MG CAPSULE TAKE 1 CAPSULE TWICE A DAY AMLODIPINE 10 MG TABLET Take 10 mg by mouth once adolfo* FAMOTIDINE 20 MG TABLET Take 1 tablet by mouth twice * CALCIUM ACETATE 667 MG TABLET Take 667 mg by mouth three ti* VITAMIN B COMPLEX AND VITAMIN* Take 1 capsule by mouth once * ACETAMINOPHEN 325 MG TABLET Take 650 mg by mouth every 6 * Problem List As Of Date 06/15/2017 Noted Resolved Obesity [E66.9] INVALID FOR*09/13/2010 Pallor [R23.1] INVALID FOR*07/10/2009 LBP (low back pain) [M54.5] INVALID FOR*10/25/2012 Vomiting [R11.10] INVALID FOR*09/13/2010 Anemia due to blood loss [D50.0] INVALID FOR*12/27/2009 Dyspnea [R06.00] INVALID FOR*08/26/2009 Chest Pain [R07.9] INVALID FOR*08/26/2009 Cervix cancer [C53.9] INVALID FOR*10/25/2012 More... 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 Radiation cystitis [N30.40] INVALID FOR*10/25/2012 S/P ileal conduit [Z93.6] INVALID FOR*10/25/2012 SUMMARY [V999.95] INVALID FOR* Priority: A More... Progressively worsening kidney function [N18.9]INVALID FOR*04/03/2017 Priority: B More... Hx of cervical cancer [Z85.41] INVALID FOR* Priority: E More... H/o Renal cell cancer [C64.9] INVALID FOR* Priority: F More... DVT prophylaxis [[id number]] INVALID FOR*11/02/2012 Priority: L More... DISPOSITION AND FOLLOW-UP [V999.01] INVALID FOR*11/02/2012 Priority: M More... Iron deficiency anemia [D50.9] INVALID FOR* Priority: C More... Euthyroid sick syndrome [E07.81] INVALID FOR* Priority: G More... Osteomyelitis [M86.9] INVALID FOR* Priority: D More... Renal failure [N19] INVALID FOR*04/03/2017 End stage renal disease (HCC) [N18.6] INVALID FOR*04/03/2017 Anemia [D64.9] Primary lung cancer with metastasis from lung t*INVALID FOR*09/22/2016 Right middle lobe pneumonia [J18.1] INVALID FOR* Chronic kidney disease, stage V (HCC) [N18.5] More... Cancer of trachea, bronchus, and lung (HCC) [C3*INVALID FOR* More... 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] INVALID FOR* Dialysis patient (HCC) [Z99.2] INVALID FOR* Essential hypertension with goal blood pressure*INVALID FOR* Primary lung cancer with metastasis from lung t*INVALID FOR* Diastolic dysfunction [I51.9] INVALID FOR* Mitral valve insufficiency [I34.0] INVALID FOR* Rash and nonspecific skin eruption [R21] INVALID FOR* Elevated TSH [R94.6] INVALID FOR* Dyspepsia [R10.13] INVALID FOR* ESRD on hemodialysis (HCC) [N18.6, Z99.2] INVALID FOR*04/03/2017 Anemia, chronic renal failure, stage 5 (HCC) [N*INVALID FOR* Encounter Status:Closed by ANEL ARSHAD on 06/15/17 ERIKAOV Observed: 06/14/2017 Status: COMPLETED Source: [place] 10:[address] [facility] REPOSITORY Office Visit (FAMPWS) YUN NELSON ([id number]) 1960 F Date Time Provider Department 06/14/17 10:00 AM YUDI NOEL (TIMBER HARVESTER OPERATOR) GERARDPWS During your visit today, we recorded the following information about you: Pulse Respiration Blood pressure Weight 76/minute 12/minute 140/78 83 kg Amalia Martínez [facility] 06/14/2017 10:49 AM Signed [facility] DISCHARGE CALL BACK ? Today's date: June 12, 2017 ? Patient discharged on 06/11/2017 from unit [facility] to home. ? Main Cancer Diagnosis: Cervical Cancer and RCC Admitting Diagnosis: Hypoxic respiratory failure secondary to acute on chronic diastolic CHF exacerbation and acute streptococcal pneumonia ? Discharge Summary/SBAR reviewed: Yes ? Called patient to follow up on symptom management, prescriptions, and follow-up appointments. Spoke with patient. ? Patient with symptom issues: No ? Discharge prescriptions filled: Yes ? Patient understands when to take prescriptions: Yes ? Patient scheduled for follow-up appointment within 5 business days of discharge? Yes ? Patient reminded of her follow-up appointment with [facility] provider, Dr. Arteaga on 06/15/2017: Yes ? Social Work Follow-Up visit scheduled? No ? Discussed: Patient stated she is ANDquot;tired.ANDquot; Patient stated she just got home from her appointment with Dr. Pedersen. Patient stated she is not having any symptom issues at this time. Patient stated she filled her prescriptions and understands when and to take. Patient instructed to call this office with any fever 100.4 or higher, worsening symptoms, questions or concerns. Patient stated understanding. ? HELDER Donald APRN.CNP 06/14/2017 10:49 AM Signed Transitional Care Management Progress Note The patients TCM visit was performed within the 7 days of discharge. Patient's Date of discharge: 06/11/17 Date of initial coordinator contact after discharge: 06/12/17 Copied from [facility] Discharge Summary: The patient is a 57 y/o F w/ PMHx: Chronic Diastolic CHF, Lung CA currently undergoing chemotherapy, Hx Colon CA and Cervical CA, ESRD on HD, AOCD, HTN, GERD who presents to the [facility] ED on 06/07/17 w/ history of ongoing dyspnea, progressively sling with productive cough noted to have missed her dialysis recently secondary to feeling ill. The emergency room upon initial presentation patient pulse oximetry was 50% with initial chest x-ray demonstrating bilateral infiltrates and congestion. ED patient was administered IV Rocephin and azithromycin. Patient admitted to PCU, maintained on monitor, maintained on oxygen w/ additionally BIPAP at night given appearance, continued aerosols, continued IV antibiotic therapy with HCAP coverage given end-stage renal disease on dialysis with IV Zosyn with negative blood cultures ?2, negative Legionella antigen, positive streptococcal pneumonia antigen with no sputum culture obtained. Patient transitioned to oral Augmentin upon discharge. Given patient volume overload, suspected secondary to missed dialysis, she was administered IV lasix pending HD session with improvement following dialysis. Echocardiogram with normal LV systolic function, EF 55%, moderate to severe mitral annular calcification, trivial MV insufficiency, mild TV insufficiency, mild diffuse AV thickening, transmitral Doppler flow suggestive of impaired relaxation LV. Patient discharged on regimen lisinopril with encouragement strict HD compliance to avoid overload with Nephrology routine follow-up. Patient discharged in improved stable condition with follow- up with PCP, Dr. Arteaga, Nephrology. Oxygenation testing performed for discharge and patient required 2-3L NC which was arranged, aerosols and nebulizer also set-up upon discharge. Amalia Noel APRN.TIMBER HARVESTER OPERATOR 06/14/2017 10:49 AM Signed SUBJECTIVE: In follow-up of hospitalization, Yun Nelson is a 57 year old female with the chief complaint of hospital discharge. Copied from [facility]. Discharge Summary: The patient is a 57 y/o F w/ PMHx: Chronic Diastolic CHF, Lung CA currently undergoing chemotherapy, Hx Colon CA and Cervical CA, ESRD on HD, AOCD, HTN, GERD who presents to the [facility] ED on 06/07/17 w/ history of ongoing dyspnea, progressively sling with productive cough noted to have missed her dialysis recently secondary to feeling ill. The emergency room upon initial presentation patient pulse oximetry was 50% with initial chest x-ray demonstrating bilateral infiltrates and congestion. ED patient was administered IV Rocephin and azithromycin. Patient admitted to PCU, maintained on monitor, maintained on oxygen w/ additionally BIPAP at night given appearance, continued aerosols, continued IV antibiotic therapy with HCAP coverage given end-stage renal disease on dialysis with IV Zosyn with negative blood cultures ?2, negative Legionella antigen, positive streptococcal pneumonia antigen with no sputum culture obtained. Patient transitioned to oral Augmentin upon discharge. Given patient volume overload, suspected secondary to missed dialysis, she was administered IV lasix pending HD session with improvement following dialysis. Echocardiogram with normal LV systolic function, EF 55%, moderate to severe mitral annular calcification, trivial MV insufficiency, mild TV insufficiency, mild diffuse AV thickening, transmitral Doppler flow suggestive of impaired relaxation LV. Patient discharged on regimen lisinopril with encouragement strict HD compliance to avoid overload with Nephrology routine follow-up. Patient discharged in improved stable condition with follow- up with PCP, Dr. Arteaga, Nephrology. Oxygenation testing performed for discharge and patient required 2-3L NC which was arranged, aerosols and nebulizer also set-up upon discharge. I have reviewed the patient?s last hospital course including diagnostic testing performed during this hospitalization, their discharge medications, and my assessment and plan with the patient and any family members present at today?s visit. Pt presents today for hospital follow-up. Refers that she had pneumonia. Admitted to the hospital on 06/07/17 and discharged on 06/11/17. Refers she usually attends dialysis on Sunday, , and Sunday. Refers that on that , she had increased SOB. States she called dialysis to let them know that she likely wouldn't be there that day, that she was going to go to ER. O2 sat on arrival was 50%. Treated with bipap, antibiotics and breathing treatments. Discharged on O2, oral antibiotics -- augmentin, and breathing treatments. Currently wearing O2 at night and prn during the day. Using the nebulizers a couple times a day -- used twice yesterday. Currently being treated by Dr. Arteaga for Right lunc CA. Has appt with him tomorrow. Currently receiving chemo. Done with radiation. Refers that she has been feeling okay since being home. Frequent rest breaks. Eating okay. Refers that she is getting her appetite back. Has a Right ileoconduit -- refers that she usually empties this twice daily. Has a left sided colostomy which is functioning well. Denies any skin issues around stomas. CURRENT MEDICATIONS: Current Outpatient Prescriptions on File Prior to Visit: lisinopril (ZESTRIL, PRINIVIL) 10 mg tablet clobetasol (TEMOVATE) 0.05 % cream Apply 1 application to affected area twice daily. As needed for rash on arms folic acid 1 mg tablet Take 1 tablet by mouth once daily. STOOL SOFTENER 100 mg capsule TAKE 1 CAPSULE TWICE A DAY amLODIPine (NORVASC) 10 mg tablet Take 10 mg by mouth once daily. famotidine (PEPCID) 20 mg tablet Take 1 tablet by mouth twice daily as needed (stomach upset). ondansetron (ZOFRAN) 8 mg tablet Take 1 tablet by mouth every 8 hours as needed for Nausea/Vomiting. Indications: CANCER CHEMOTHERAPY-INDUCED NAUSEA AND VOMITING ERGOCALCIFEROL, VITAMIN D2, ORAL Take 1 capsule by mouth. Once weekly lisinopril (ZESTRIL, PRINIVIL) 20 mg tablet Take 20 mg by mouth once daily. calcium acetate 667 mg tab Take 667 mg by mouth three times daily. b complex, c, folic acid 1 mg renal vitamins (TRIPHROCAPS) 1 mg capsule Take 1 capsule by mouth once daily. acetaminophen (TYLENOL) 325 mg tablet Take 650 mg by mouth every 6 hours as needed. No current facility-administered medications on file prior to visit. 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 REVIEW OF SYSTEMS:GENERAL: No weight loss, malaise or fevers HEENT: No changes in hearing or vision, no nose bleeds or other nasal problems. occ headache with weather changes that resolve with tylenol. NECK: Negative for lumps, goiter, pain and significant neck swelling. RESPIRATORY: + nonproductive cough, occ wheeze, no hemoptysis, no SOB. CARDIOVASCULAR: No CP. No orthopnea. trace LE edema. No palpitations. GI: No nausea, vomiting, or diarrhea and No heartburn or reflux symptoms SKIN: Negative for lesions, rash, and itching ENDOCRINE: Negative for cold or heat intolerance, polyuria, polydipsia and goiter NEURO: No history of headaches, syncope, paralysis, seizures or tremors BP 140/78 (BP Site: Left Arm, BP Position: Sitting, BP Cuff Size: Regular Adult) Pulse 76 Resp 12 Wt 83 kg (183 lb) BMI 33.47 kg/m2 O2 sat 97% RA with rest and ambulation. General Appearance: Well appearing, alert, in no acute distress, well-hydrated, well nourished. Head: Normocephalic, no masses, lesions, tenderness or abnormalities Oropharynx: Lips, mucosa, and tongue normal, teeth and gums normal, oropharynx normal Neck: supple, no adenopathy Lungs: clear to auscultation, no wheezing or rhonchi Heart: Normal S1 ANDamp; S2, 3/6 right and left sternal boarder. Abdomen: + ileo conduit on the right, + colostomy on the right. + BS. Extremities: No deformities, skin discoloration, clubbing or cyanosis. Good capillary refill. Trace ankle edema. + thrill and bruit of RUE fistula. Peripheral Pulses: Normal Neurologic: no abnormalities noted Skin: Skin color, texture, turgor normal, no suspicious rashes or lesions REVIEW OF RECORDS: Progress note, Problem list and Patient history PATIENT EDUCATION: advised pt to go to ER if condition worsens significantly and advised pt to call or return to office if problems or questions arise REVIEW OF TESTS: Labs, Radiology report, Consult and echo PAST MEDICAL HISTORY: Reviewed and updated ALLERGIES: Reviewed and updated MEDICATIONS: Reviewed and updated ASSESSMENT/PLAN: 1. Pneumonia of both lungs due to group B Streptococcus, unspecified part of lung (HCC) - ICD9: 482.32, ICD10: J15.3 (primary diagnosis) Finish amoxicillin. O2 prn nebulizers prn. Aware that if she develops recurrence of symptoms, fevers, chills, etc -- she should let us know. 2. Acute on chronic diastolic congestive heart failure (HCC) - ICD9: 428.33, 428.0, ICD10: I50.33 Continue dialysis 3. ESRD (end stage renal disease) on dialysis (HCC) - ICD9: 585.6, V45.11, ICD10: N18.6, Z99.2 Continue dialysis per nephrology. 4. Primary lung cancer with metastasis from lung to other site, right (HCC) - ICD9: 162.9, ICD10: C34.91 Continue to follow per Dr. Arteaga. 5. Anemia, chronic renal failure, stage 5 (HCC) - ICD9: 285.21, 585.5, ICD10: N18.5, D63.1 Stable. Yudi Noel APRN.CNP TRANSITIONAL CARE MANAGEMENT PROGRESS NOTE Transitional Care Management Progress Note The patients TCM visit was performed within the 7 days of discharge. Patient's Date of discharge: 06/11/17 Date of initial coordinator contact after discharge: 06/12/17 Discharge diagnosis: Acute hypoxic respiratory failure; acute on chronic diastolic CHF, and Acute recurrent streptococcal pneumonia. Medication reconciliation completed Yes Yudi Noel APRN.CNP June 14, 2017 9:49 AM Yudi Noel APRN.CNP 06/14/2017 10:15 AM Signed 1. Finish antibiotic. 2. Continue nebulizers as needed. 3. O2 as needed. 4. If symptoms reoccur, difficulty breathing, fevers/chills, etc -- let us know or return to ER. Referring Provider: SELF [[id number]] Allergies As of Date: 06/14/2017 (No Known Allergies) Date Reviewed: 06/14/2017 Reviewed by: Yudi (Germán) Bert - Fully Assessed Reason for Visit: Hospital Follow Up [177] Cmt: TCM-7 [facility] Primary Visit Diagnosis:Pneumonia of both lungs due to group B Streptococcus, unspecified part of lung (HCC) [J15.3] Other Visit Diagnoses:Acute on chronic diastolic congestive heart failure (HCC) [I50.33] ESRD (end stage renal disease) on dialysis (HCC) [N18.6, Z99.2] Primary lung cancer with metastasis from lung to other site, right (HCC) [C34.91] Anemia, chronic renal failure, stage 5 (HCC) [N18.5, D63.1] Order(s):lisinopril (ZESTRIL, PRINIVIL) 20 mg tabletTake 1 tablet by mouth twice daily.Disp: Rfl: ergocalciferol, vitamin D2, (DRISDOL) 50,000 unit capsuleTake 1 capsule by mouth once each week. Once weeklyDisp: Rfl: albuterol (PROVENTIL) 2.5 mg /3 mL (0.083 %) nebulizer solutionUse 3 mL via nebulizer every 2 hours as needed for Wheezing/Shortness of Breath. Use over 5-15minutes.Disp: Rfl: Prescriptions as of 06/14/2017 Sig: LISINOPRIL 20 MG TABLET Take 1 tablet by mouth twice * ERGOCALCIFEROL (VITAMIN D2) 5* Take 1 capsule by mouth once * CLOBETASOL 0.05 % TOPICAL CRE* Apply 1 application to affect* FOLIC ACID 1 MG TABLET Take 1 tablet by mouth once d* STOOL SOFTENER 100 MG CAPSULE TAKE 1 CAPSULE TWICE A DAY AMLODIPINE 10 MG TABLET Take 10 mg by mouth once adolfo* FAMOTIDINE 20 MG TABLET Take 1 tablet by mouth twice * ONDANSETRON HCL 8 MG TABLET Take 1 tablet by mouth every * CALCIUM ACETATE 667 MG TABLET Take 667 mg by mouth three ti* VITAMIN B COMPLEX AND VITAMIN* Take 1 capsule by mouth once * ACETAMINOPHEN 325 MG TABLET Take 650 mg by mouth every 6 * ALBUTEROL SULFATE 2.5 MG/3 ML* Use 3 mL via nebulizer every * Problem List As Of Date 06/14/2017 Noted Resolved Obesity [E66.9] INVALID FOR*09/13/2010 Pallor [R23.1] INVALID FOR*07/10/2009 LBP (low back pain) [M54.5] INVALID FOR*10/25/2012 Vomiting [R11.10] INVALID FOR*09/13/2010 Anemia due to blood loss [D50.0] INVALID FOR*12/27/2009 Dyspnea [R06.00] INVALID FOR*08/26/2009 Chest Pain [R07.9] INVALID FOR*08/26/2009 Cervix cancer [C53.9] INVALID FOR*10/25/2012 More... 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 Radiation cystitis [N30.40] INVALID FOR*10/25/2012 S/P ileal conduit [Z93.6] INVALID FOR*10/25/2012 SUMMARY [V999.95] INVALID FOR* Priority: A More... Progressively worsening kidney function [N18.9]INVALID FOR*04/03/2017 Priority: B More... Hx of cervical cancer [Z85.41] INVALID FOR* Priority: E More... H/o Renal cell cancer [C64.9] INVALID FOR* Priority: F More... DVT prophylaxis [[id number]] INVALID FOR*11/02/2012 Priority: L More... DISPOSITION AND FOLLOW-UP [V999.01] INVALID FOR*11/02/2012 Priority: M More... Iron deficiency anemia [D50.9] INVALID FOR* Priority: C More... Euthyroid sick syndrome [E07.81] INVALID FOR* Priority: G More... Osteomyelitis [M86.9] INVALID FOR* Priority: D More... Renal failure [N19] INVALID FOR*04/03/2017 End stage renal disease (HCC) [N18.6] INVALID FOR*04/03/2017 Anemia [D64.9] Primary lung cancer with metastasis from lung t*INVALID FOR*09/22/2016 Right middle lobe pneumonia [J18.1] INVALID FOR* Chronic kidney disease, stage V (HCC) [N18.5] More... Cancer of trachea, bronchus, and lung (HCC) [C3*INVALID FOR* More... 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] INVALID FOR* Dialysis patient (HCC) [Z99.2] INVALID FOR* Essential hypertension with goal blood pressure*INVALID FOR* Primary lung cancer with metastasis from lung t*INVALID FOR* Diastolic dysfunction [I51.9] INVALID FOR* Mitral valve insufficiency [I34.0] INVALID FOR* Rash and nonspecific skin eruption [R21] INVALID FOR* Elevated TSH [R94.6] INVALID FOR* Dyspepsia [R10.13] INVALID FOR* ESRD on hemodialysis (HCC) [N18.6, Z99.2] INVALID FOR*04/03/2017 Anemia, chronic renal failure, stage 5 (HCC) [N*INVALID FOR* Other instructions from your clinician: 1. Finish antibiotic. 2. Continue nebulizers as needed. 3. O2 as needed. 4. If symptoms reoccur, difficulty breathing, fevers/chills, etc -- let us know or return to ER. Prescriptions ordered this encounter Disp Refills Start End LISINOPRIL 20 MG TABLET 06/14/2017 Class: Med Update Route: ORAL Sig: Take 1 tablet by mouth twice daily. ERGOCALCIFEROL (VITAMIN D2) 50,000 U* 06/14/2017 Class: Med Update Route: ORAL Sig: Take 1 capsule by mouth once each week. Once weekly ALBUTEROL SULFATE 2.5 MG/3 ML (0.083* 06/14/2017 Class: Med Update Route: NEBULIZATION Sig: Use 3 mL via nebulizer every 2 hours as needed for Wheezing/Shortness of Breath. Use over 5-15minutes. Medications Discontinued During This Encounter lisinopril (ZESTRIL, PRINIVIL) 10 mg* 04/13/2017 06/14/2017 Class: Historical Med Sig: Disc: Duplicate Entry lisinopril (ZESTRIL, PRINIVIL) 20 mg* 06/14/2017 Class: Historical Med Route: ORAL Sig: Take 20 mg by mouth once daily. Disc: Reason for discontinue is not on file. ERGOCALCIFEROL, VITAMIN D2, ORAL 06/14/2017 Class: Historical Med Route: ORAL Sig: Take 1 capsule by mouth. Once weekly Disc: Reason for discontinue is not on file. Encounter Status:Closed by YUDI NOEL CNP on 06/14/17 PROGRESS Observed: 06/14/2017 Status: COMPLETED Source: [place] 9:[address] [facility] REPOSITORY HNO ID: [id number] Author: Yudi Recinos) Bert Service: (none) Author Type: Nurse Practitioner Type: Progress Notes Filed: 06/14/2017 10:49 AM Note Text: SUBJECTIVE: In follow-up of hospitalization, Yun Nelson is a 57 year old female with the chief complaint of hospital discharge. Copied from [facility]. Discharge Summary: The patient is a 57 y/o F w/ PMHx: Chronic Diastolic CHF, Lung CA currently undergoing chemotherapy, Hx Colon CA and Cervical CA, ESRD on HD, AOCD, HTN, GERD who presents to the [facility] ED on 06/07/17 w/ history of ongoing dyspnea, progressively sling with productive cough noted to have missed her dialysis recently secondary to feeling ill. The emergency room upon initial presentation patient pulse oximetry was 50% with initial chest x-ray demonstrating bilateral infiltrates and congestion. ED patient was administered IV Rocephin and azithromycin. Patient admitted to PCU, maintained on monitor, maintained on oxygen w/ additionally BIPAP at night given appearance, continued aerosols, continued IV antibiotic therapy with HCAP coverage given end- stage renal disease on dialysis with IV Zosyn with negative blood cultures ?2, negative Legionella antigen, positive streptococcal pneumonia antigen with no sputum culture obtained. Patient transitioned to oral Augmentin upon discharge. Given patient volume overload, suspected secondary to missed dialysis, she was administered IV lasix pending HD session with improvement following dialysis. Echocardiogram with normal LV systolic function, EF 55%, moderate to severe mitral annular calcification, trivial MV insufficiency, mild TV insufficiency, mild diffuse AV thickening, transmitral Doppler flow suggestive of impaired relaxation LV. Patient discharged on regimen lisinopril with encouragement strict HD compliance to avoid overload with Nephrology routine follow-up. Patient discharged in improved stable condition with follow-up with PCP, Dr. Arteaga, Nephrology. Oxygenation testing performed for discharge and patient required 2-3L NC which was arranged, aerosols and nebulizer also set-up upon discharge. I have reviewed the patient?s last hospital course including diagnostic testing performed during this hospitalization, their discharge medications, and my assessment and plan with the patient and any family members present at today?s visit. Pt presents today for hospital follow-up. Refers that she had pneumonia. Admitted to the hospital on 06/07/17 and discharged on 06/11/17. Refers she usually attends dialysis on Sunday, , and Sunday. Refers that on that , she had increased SOB. States she called dialysis to let them know that she likely wouldn't be there that day, that she was going to go to ER. O2 sat on arrival was 50%. Treated with bipap, antibiotics and breathing treatments. Discharged on O2, oral antibiotics -- augmentin, and breathing treatments. Currently wearing O2 at night and prn during the day. Using the nebulizers a couple times a day -- used twice yesterday. Currently being treated by Dr. Arteaga for Right lunc CA. Has appt with him tomorrow. Currently receiving chemo. Done with radiation. Refers that she has been feeling okay since being home. Frequent rest breaks. Eating okay. Refers that she is getting her appetite back. Has a Right ileoconduit -- refers that she usually empties this twice daily. Has a left sided colostomy which is functioning well. Denies any skin issues around stomas. CURRENT MEDICATIONS: Current Outpatient Prescriptions on File Prior to Visit: lisinopril (ZESTRIL, PRINIVIL) 10 mg tablet clobetasol (TEMOVATE) 0.05 % cream Apply 1 application to affected area twice daily. As needed for rash on arms folic acid 1 mg tablet Take 1 tablet by mouth once daily. STOOL SOFTENER 100 mg capsule TAKE 1 CAPSULE TWICE A DAY amLODIPine (NORVASC) 10 mg tablet Take 10 mg by mouth once daily. famotidine (PEPCID) 20 mg tablet Take 1 tablet by mouth twice daily as needed (stomach upset). ondansetron (ZOFRAN) 8 mg tablet Take 1 tablet by mouth every 8 hours as needed for Nausea/Vomiting. Indications: CANCER CHEMOTHERAPY-INDUCED NAUSEA AND VOMITING ERGOCALCIFEROL, VITAMIN D2, ORAL Take 1 capsule by mouth. Once weekly lisinopril (ZESTRIL, PRINIVIL) 20 mg tablet Take 20 mg by mouth once daily. calcium acetate 667 mg tab Take 667 mg by mouth three times daily. b complex, c, folic acid 1 mg renal vitamins (TRIPHROCAPS) 1 mg capsule Take 1 capsule by mouth once daily. acetaminophen (TYLENOL) 325 mg tablet Take 650 mg by mouth every 6 hours as needed. No current facility-administered medications on file prior to visit. 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 REVIEW OF SYSTEMS:GENERAL: No weight loss, malaise or fevers HEENT: No changes in hearing or vision, no nose bleeds or other nasal problems. occ headache with weather changes that resolve with tylenol. NECK: Negative for lumps, goiter, pain and significant neck swelling. RESPIRATORY: + nonproductive cough, occ wheeze, no hemoptysis, no SOB. CARDIOVASCULAR: No CP. No orthopnea. trace LE edema. No palpitations. GI: No nausea, vomiting, or diarrhea and No heartburn or reflux symptoms SKIN: Negative for lesions, rash, and itching ENDOCRINE: Negative for cold or heat intolerance, polyuria, polydipsia and goiter NEURO: No history of headaches, syncope, paralysis, seizures or tremors BP 140/78 (BP Site: Left Arm, BP Position: Sitting, BP Cuff Size: Regular Adult) Pulse 76 Resp 12 Wt 83 kg (183 lb) BMI 33.47 kg/m2 O2 sat 97% RA with rest and ambulation. General Appearance: Well appearing, alert, in no acute distress, well-hydrated, well nourished. Head: Normocephalic, no masses, lesions, tenderness or abnormalities Oropharynx: Lips, mucosa, and tongue normal, teeth and gums normal, oropharynx normal Neck: supple, no adenopathy Lungs: clear to auscultation, no wheezing or rhonchi Heart: Normal S1 AND S2, 3/6 right and left sternal boarder. Abdomen: + ileo conduit on the right, + colostomy on the right. + BS. Extremities: No deformities, skin discoloration, clubbing or cyanosis. Good capillary refill. Trace ankle edema. + thrill and bruit of RUE fistula. Peripheral Pulses: Normal Neurologic: no abnormalities noted Skin: Skin color, texture, turgor normal, no suspicious rashes or lesions REVIEW OF RECORDS: Progress note, Problem list and Patient history PATIENT EDUCATION: advised pt to go to ER if condition worsens significantly and advised pt to call or return to office if problems or questions arise REVIEW OF TESTS: Labs, Radiology report, Consult and echo PAST MEDICAL HISTORY: Reviewed and updated ALLERGIES: Reviewed and updated MEDICATIONS: Reviewed and updated ASSESSMENT/PLAN: 1. Pneumonia of both lungs due to group B Streptococcus, unspecified part of lung (HCC) - ICD9: 482.32, ICD10: J15.3 (primary diagnosis) Finish amoxicillin. O2 prn nebulizers prn. Aware that if she develops recurrence of symptoms, fevers, chills, etc -- she should let us know. 2. Acute on chronic diastolic congestive heart failure (HCC) - ICD9: 428.33, 428.0, ICD10: I50.33 Continue dialysis 3. ESRD (end stage renal disease) on dialysis (HCC) - ICD9: 585.6, V45.11, ICD10: N18.6, Z99.2 Continue dialysis per nephrology. 4. Primary lung cancer with metastasis from lung to other site, right (HCC) - ICD9: 162.9, ICD10: C34.91 Continue to follow per Dr. Arteaga. 5. Anemia, chronic renal failure, stage 5 (HCC) - ICD9: 285.21, 585.5, ICD10: N18.5, D63.1 Stable. Yudi Noel APRN.CNP TRANSITIONAL CARE MANAGEMENT PROGRESS NOTE Transitional Care Management Progress Note The patients TCM visit was performed within the 7 days of discharge. Patient's Date of discharge: 06/11/17 Date of initial coordinator contact after discharge: 06/12/17 Discharge diagnosis: Acute hypoxic respiratory failure; acute on chronic diastolic CHF, and Acute recurrent streptococcal pneumonia. Medication reconciliation completed Yes Yudi Noel APRN.CNP June 14, 2017 9:49 AM PROGRESS Observed: 06/14/2017 Status: COMPLETED Source: [place] 9:[address] [facility] REPOSITORY O ID: [id number] Author: Yudi (Germán) Bert Service: (none) Author Type: Nurse Practitioner Type: Progress Notes Filed: 06/14/2017 10:49 AM Note Text: Transitional Care Management Progress Note The patients TCM visit was performed within the 7 days of discharge. Patient's Date of discharge: 06/11/17 Date of initial coordinator contact after discharge: 06/12/17 Copied from [facility] Discharge Summary: The patient is a 57 y/o F w/ PMHx: Chronic Diastolic CHF, Lung CA currently undergoing chemotherapy, Hx Colon CA and Cervical CA, ESRD on HD, AOCD, HTN, GERD who presents to the [facility] ED on 06/07/17 w/ history of ongoing dyspnea, progressively sling with productive cough noted to have missed her dialysis recently secondary to feeling ill. The emergency room upon initial presentation patient pulse oximetry was 50% with initial chest x-ray demonstrating bilateral infiltrates and congestion. ED patient was administered IV Rocephin and azithromycin. Patient admitted to PCU, maintained on monitor, maintained on oxygen w/ additionally BIPAP at night given appearance, continued aerosols, continued IV antibiotic therapy with HCAP coverage given end- stage renal disease on dialysis with IV Zosyn with negative blood cultures ?2, negative Legionella antigen, positive streptococcal pneumonia antigen with no sputum culture obtained. Patient transitioned to oral Augmentin upon discharge. Given patient volume overload, suspected secondary to missed dialysis, she was administered IV lasix pending HD session with improvement following dialysis. Echocardiogram with normal LV systolic function, EF 55%, moderate to severe mitral annular calcification, trivial MV insufficiency, mild TV insufficiency, mild diffuse AV thickening, transmitral Doppler flow suggestive of impaired relaxation LV. Patient discharged on regimen lisinopril with encouragement strict HD compliance to avoid overload with Nephrology routine follow-up. Patient discharged in improved stable condition with follow-up with PCP, Dr. Arteaga, Nephrology. Oxygenation testing performed for discharge and patient required 2-3L NC which was arranged, aerosols and nebulizer also set-up upon discharge. Amalia Mauricio Technical Support Manager PROGRESS Observed: 06/14/2017 Status: COMPLETED Source: [place] 9:[address] [facility] REPOSITORY HNO ID: [id number] Author: Amalia Martínez [facility] Service: (none) Author Type: (none) Type: Progress Notes Filed: 06/14/2017 10:49 AM Note Text: [facility] DISCHARGE CALL BACK ? Today's date: June 12, 2017 ? Patient discharged on 06/11/2017 from unit [facility] to home. ? Main Cancer Diagnosis: Cervical Cancer and RCC Admitting Diagnosis: Hypoxic respiratory failure secondary to acute on chronic diastolic CHF exacerbation and acute streptococcal pneumonia ? Discharge Summary/SBAR reviewed: Yes ? Called patient to follow up on symptom management, prescriptions, and follow-up appointments. Spoke with patient. ? Patient with symptom issues: No ? Discharge prescriptions filled: Yes ? Patient understands when to take prescriptions: Yes ? Patient scheduled for follow-up appointment within 5 business days of discharge? Yes ? Patient reminded of her follow-up appointment with [facility] provider, Dr. Arteaga on 06/15/2017: Yes ? Social Work Follow-Up visit scheduled? No ? Discussed: Patient stated she is tired. Patient stated she just got home from her appointment with Dr. Pedersen. Patient stated she is not having any symptom issues at this time. Patient stated she filled her prescriptions and understands when and to take. Patient instructed to call this office with any fever 100.4 or higher, worsening symptoms, questions or concerns. Patient stated understanding. ? Nancy Centeno RN PROGRESS Observed: 06/12/2017 Status: COMPLETED Source: [place] 5:[address] [facility] REPOSITORY HNO ID: [id number] Author: Eugenia Pedersen Service: (none) Author Type: Physician Type: Progress Notes Filed: 06/12/2017 5:44 PM Note Text: FOLLOW UP VISIT NAME: Yun Alvarado [facility] NO.: [id number] DATE OF SERVICE: 06/12/2017 : 1960 REFERRING PHYSICIAN: Lawrence Dozier DO Yun is a patient I am following for abnormal left breast imaging. The patient is a 57 year old female with a complaint of an abnormal mammogram. The patient had a mammogram with ultrasound on May 11 with follow-up imaging and ultrasound on May 08, 2017 which demonstrated: IMPRESSION: SUSPICIOUS OF MALIGNANCY The 0.5 cm x 0.5 cm x 0.3 cm oval nodule in the left breast is at an intermediate suspicion for malignancy. ?A stereotactic biopsy is recommended. SUMMARY: I discussed the finding and recommendation for biopsy with the patient following completion of the exam. She has been scheduled to see the surgeon, Dr. Pedersen on 05/21/17. Bentley hanson/raegan:05/16/2017 12:52:50 Material Hauler: Tesha BAUMAN(Sb)(Brigida), [facility] letter sent: Abnormal ? Mammogram BI-RADS: 0 Incomplete: needs additional imaging evaluation Ultrasound BI-RADS: 4b Suspicious abnormality - intermediate suspicion of malignancy Solar Maintenance Technician: Raegan Transcribe Date/Time: May 16 2017 10:42A Dictated by : BENTLEY PRINGLE MD This examination was interpreted and the report reviewed and electronically signed by: BENTLEY PRINGLE MD on May 16 2017 12:52PM ?EST The patient denies a history of breast masses. She does not perform a self breast exam routinely. She notes no skin changes. She denies nipple discharge. She notes no axillary masses. She notes no family history of breast problems. She notes no significant breast trauma or breast difficulties in the past. The patient has had no pregnancies. Her last mammogram was 2016. Her last menstrual period was ?. Her first menstrual period was at age 15. The patient has a history of lung cancer for which she is getting weekly treatments on Sunday. She has renal failure. She has hemodialysis with a right upper extremity AV fistula for which she receives dialysis on Sunday, and Saturdays. She has a colostomy The patient is being seen by me today at the request of Dr. Lawrence Dozier DO for my opinion and advice regarding abnormal left breast imaging. I attempted to identify the abnormality on ultrasound in the office I was unable to visualize the abnormality. Due to the patient's medical comorbidities, body habitus and dialysis graft. She is uncomfortable and not willing to lay on her stomach for a stereotactic-based biopsy. We had her return today for planned ultrasound-guided biopsy in the endoscopy suite. VITALS: There were no vitals taken for this visit. There are no palpable abnormalities on examination. The abnormality was not able to be visualized in ultrasound Assessment IMPRESSION: Left breast abnormality-unable to visualize an office or in endoscopy suite PLAN: If the patient notes any problems or signs of a palpable breast mass, the patient should contact me immediately. We discussed stereotactic biopsy, which the patient still declines. We will plan to have her return in 6 months for follow-up mammogram and ultrasound to assess if there is stability of this abnormality. Diagnoses: (R92.8) Abnormality of left breast on screening mammogram (primary encounter diagnosis) Return to Clinic: The patient is instructed to follow- up with me in 6 months, you should obtain a mammogram and ultrasound prior to this follow up visit. Eugenia Pedersen MD CNOV Observed: 06/12/2017 Status: COMPLETED Source: [place] 2:[address] [facility] REPOSITORY Office Visit (GENSWS) YUN NELSON ([id number]) 1960 F Date Time Provider Department 06/12/17 2:30 PM EUGENIA PEDERSEN GENSWS During your visit today, we recorded the following information about you: Mariangel Santana YARD SUPERVISOR [employer]IN 06/12/2017 2:31 PM Signed INFORMED CONSENT Yun Nelson Medical Record: [id number] Procedure:us guided breast biopsy The risks, benefits and anticipated outcomes of the procedure, the risks and benefits of the alternatives to the procedure and the roles and tasks of the personnel to be involved were discussed with the patient and the patient consents to the procedure and agrees to proceed. I verify that I personally obtained Yun Nelson's consent. Mariangel Santana LPN June 12, 2017 2:30 PM Dept of GENERAL SURGERY [employer] / SAFETY CHECKLIST Procedure to be performed: us guided breast biopsy Sign in Communication: Completed Time Out: Team Confirms the Correct Patient, Correct Procedure, Correct Site and Site Marking, Correct Position (if applicable), Prep and Dry Time (if applicable). Time: 231 pm Affirmation of Time Out: YES Sign Out Discussion: Completed Mariangel Pedersen MD 06/12/2017 5:44 PM Signed FOLLOW UP VISIT NAME: Yun Nelson CLINIC NO.: [id number] DATE OF SERVICE: 06/12/2017 : 1960 REFERRING PHYSICIAN: Lawrence Dozier DO Yun is a patient I am following for abnormal left breast imaging. The patient is a 57 year old female with a complaint of an abnormal mammogram. The patient had a mammogram with ultrasound on May 11 with follow-up imaging and ultrasound on May 08, 2017 which demonstrated: IMPRESSION: SUSPICIOUS OF MALIGNANCY The 0.5 cm x 0.5 cm x 0.3 cm oval nodule in the left breast is at an intermediate suspicion for malignancy. ?A stereotactic biopsy is recommended. SUMMARY: I discussed the finding and recommendation for biopsy with the patient following completion of the exam. She has been scheduled to see the surgeon, Dr. Pedersen on 05/21/17. Bentley hanson/raegan:05/16/2017 12:52:50 Material Hauler: Tesha Grant RT(Sb)(M), [facility] letter sent: Abnormal ? Mammogram BI-RADS: 0 Incomplete: needs additional imaging evaluation Ultrasound BI-RADS: 4b Suspicious abnormality - intermediate suspicion of malignancy Solar Maintenance Technician: Raegan Transcribe Date/Time: May 16 2017 10:42A Dictated by : BENTLEY PRINGEL MD This examination was interpreted and the report reviewed and electronically signed by: BENTLEY PRINGLE MD on May 16 2017 12:52PM ?EST The patient denies a history of breast masses. She does not perform a self breast exam routinely. She notes no skin changes. She denies nipple discharge. She notes no axillary masses. She notes no family history of breast problems. She notes no significant breast trauma or breast difficulties in the past. The patient has had no pregnancies. Her last mammogram was 2016. Her last menstrual period was ?. Her first menstrual period was at age 15. The patient has a history of lung cancer for which she is getting weekly treatments on Sunday. She has renal failure. She has hemodialysis with a right upper extremity AV fistula for which she receives dialysis on Sunday, and Saturdays. She has a colostomy The patient is being seen by me today at the request of Dr. Lawrence Dozier DO for my opinion and advice regarding abnormal left breast imaging. I attempted to identify the abnormality on ultrasound in the office I was unable to visualize the abnormality. Due to the patient's medical comorbidities, body habitus and dialysis graft. She is uncomfortable and not willing to lay on her stomach for a stereotactic-based biopsy. We had her return today for planned ultrasound-guided biopsy in the endoscopy suite. VITALS: There were no vitals taken for this visit. There are no palpable abnormalities on examination. The abnormality was not able to be visualized in ultrasound Assessment IMPRESSION: Left breast abnormality-unable to visualize an office or in endoscopy suite PLAN: If the patient notes any problems or signs of a palpable breast mass, the patient should contact me immediately. We discussed stereotactic biopsy, which the patient still declines. We will plan to have her return in 6 months for follow-up mammogram and ultrasound to assess if there is stability of this abnormality. Diagnoses: (R92.8) Abnormality of left breast on screening mammogram (primary encounter diagnosis) Return to Clinic: The patient is instructed to follow- up with me in 6 months, you should obtain a mammogram and ultrasound prior to this follow up visit. Eugenia Pedersen MD Referring Provider: THANIA DE SOUZA [[id number]] Allergies As of Date: 06/12/2017 (No Known Allergies) Date Reviewed: 06/12/2017 Reviewed by: Eugenia Pedersen - Fully Assessed Reason for Visit: Breast Biopsy-1 [299] Primary Visit Diagnosis:Abnormality of left breast on screening mammogram [R92.8] Order(s):[facility] DIAGNOSTIC RT [[id number]] Order #: [id number] FUTURE US BREAST LTD RT [[id number]] Order #: [id number] FUTURE Prescriptions as of 06/12/2017 Sig: LISINOPRIL 10 MG TABLET CLOBETASOL 0.05 % TOPICAL CRE* Apply 1 application to affect* FOLIC ACID 1 MG TABLET Take 1 tablet by mouth once d* STOOL SOFTENER 100 MG CAPSULE TAKE 1 CAPSULE TWICE A DAY AMLODIPINE 10 MG TABLET Take 10 mg by mouth once adolfo* FAMOTIDINE 20 MG TABLET Take 1 tablet by mouth twice * ONDANSETRON HCL 8 MG TABLET Take 1 tablet by mouth every * ERGOCALCIFEROL (VITAMIN D2) O* Take 1 capsule by mouth. Once* LISINOPRIL 20 MG TABLET Take 20 mg by mouth once adolfo* CALCIUM ACETATE 667 MG TABLET Take 667 mg by mouth three ti* VITAMIN B COMPLEX AND VITAMIN* Take 1 capsule by mouth once * ACETAMINOPHEN 325 MG TABLET Take 650 mg by mouth every 6 * Problem List As Of Date 06/12/2017 Noted Resolved Obesity [E66.9] INVALID FOR*09/13/2010 Pallor [R23.1] INVALID FOR*07/10/2009 LBP (low back pain) [M54.5] INVALID FOR*10/25/2012 Vomiting [R11.10] INVALID FOR*09/13/2010 Anemia due to blood loss [D50.0] INVALID FOR*12/27/2009 Dyspnea [R06.00] INVALID FOR*08/26/2009 Chest Pain [R07.9] INVALID FOR*08/26/2009 Cervix cancer [C53.9] INVALID FOR*10/25/2012 More... 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 Radiation cystitis [N30.40] INVALID FOR*10/25/2012 S/P ileal conduit [Z93.6] INVALID FOR*10/25/2012 SUMMARY [V999.95] INVALID FOR* Priority: A More... Progressively worsening kidney function [N18.9]INVALID FOR*04/03/2017 Priority: B More... Hx of cervical cancer [Z85.41] INVALID FOR* Priority: E More... H/o Renal cell cancer [C64.9] INVALID FOR* Priority: F More... DVT prophylaxis [NPZ1304] INVALID FOR*11/02/2012 Priority: L More... DISPOSITION AND FOLLOW-UP [V999.01] INVALID FOR*11/02/2012 Priority: M More... Iron deficiency anemia [D50.9] INVALID FOR* Priority: C More... Euthyroid sick syndrome [E07.81] INVALID FOR* Priority: G More... Osteomyelitis [M86.9] INVALID FOR* Priority: D More... Renal failure [N19] INVALID FOR*04/03/2017 End stage renal disease (HCC) [N18.6] INVALID FOR*04/03/2017 Anemia [D64.9] Primary lung cancer with metastasis from lung t*INVALID FOR*09/22/2016 Right middle lobe pneumonia [J18.1] INVALID FOR* Chronic kidney disease, stage V (HCC) [N18.5] More... Cancer of trachea, bronchus, and lung (HCC) [C3*INVALID FOR* More... 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] INVALID FOR* Dialysis patient (HCC) [Z99.2] INVALID FOR* Essential hypertension with goal blood pressure*INVALID FOR* Primary lung cancer with metastasis from lung t*INVALID FOR* Diastolic dysfunction [I51.9] INVALID FOR* Mitral valve insufficiency [I34.0] INVALID FOR* Rash and nonspecific skin eruption [R21] INVALID FOR* Elevated TSH [R94.6] INVALID FOR* Dyspepsia [R10.13] INVALID FOR* ESRD on hemodialysis (HCC) [N18.6, Z99.2] INVALID FOR*04/03/2017 Visit Notes: >> Mariangel Santana LPN [facility] Jun 12, 2017 2:30 PM Status: Signed INFORMED CONSENT Yun Nelson Medical Record: [id number] Procedure:us guided breast biopsy The risks, benefits and anticipated outcomes of the procedure, the risks and benefits of the alternatives to the procedure and the roles and tasks of the personnel to be involved were discussed with the patient and the patient consents to the procedure and agrees to proceed. I verify that I personally obtained Yun Nelson's consent. Mariangel Santana LPN June 12, 2017 2:30 PM Dept of GENERAL SURGERY [employer]AL [employer]OTOCOL / SAFETY CHECKLIST Procedure to be performed: us guided breast biopsy Sign in Communication: Completed Time Out: Team Confirms the Correct Patient, Correct Procedure, Correct Site and Site Marking, Correct Position (if applicable), Prep and Dry Time (if applicable). Time: 231 pm Affirmation of Time Out: YES Sign Out Discussion: Completed Mariangel Santana LPN Follow-up and Disposition History Recorded Encounter Status:Closed by EUGENIA PEDERSEN MD on 06/12/17 DISCHARGE SUMMARY Observed: 06/11/2017 Status: F Source: [place] 2:52 PM [facility] REPOSITORY [facility] Medical Records Department [address] [place] [address] Discharge Summary 06/11/17 1252 MR#: [id number] Acct: [id number] Name: JIMENAYUN D Rep #: [id number] : 1960 57 From: Omer LEON PCP: Lawrence Fink DO Status: ADM IN Y Location: [place] [address] ADDENDUM by Isi Murphy on 06/11/17 at 1452 Code Visit ATTENDING PHYSICIAN DISCHARGE NOTE: I have seen and examined the patient independently and agree with the assessment, plan, history per Omer Pierre as noted. Discharge Diagnoses: Hypoxic respiratory failure secondary to acute on chronic diastolic CHF exacerbation and acute streptococcal pneumonia Acute on chronic diastolic CHF exacerbation Acute streptococcal pneumonia Diarrhea, secondary to antibiotic therapy, C. difficile negative Lung cancer currently on chemotherapy following with Dr. Arteaga, unclear specific type Anemia of chronic disease secondary to end-stage renal disease ESRD on dialysis Metastatic cervical cancer status post radiation, history of Colon cancer status post colostomy, ileal conduit, history of HTN Discharge Summary: The patient is a 57 y/o F w/ PMHx: Chronic Diastolic CHF, Lung CA currently undergoing chemotherapy, Hx Colon CA and Cervical CA, ESRD on HD, AOCD, HTN, GERD who presents to the [facility] ED on 06/07/17 w/ history of ongoing dyspnea, progressively sling with productive cough noted to have missed her dialysis recently secondary to feeling ill. The emergency room upon initial presentation patient pulse oximetry was 50% with initial chest x-ray demonstrating bilateral infiltrates and congestion. ED patient was administered IV Rocephin and azithromycin. Patient admitted to PCU, maintained on monitor, maintained on oxygen w/ additionally BIPAP at night given appearance, continued aerosols, continued IV antibiotic therapy with HCAP coverage given end-stage renal disease on dialysis with IV Zosyn with negative blood cultures 2, negative Legionella antigen, positive streptococcal pneumonia antigen with no sputum culture obtained. Patient transitioned to oral Augmentin upon discharge. Given patient volume overload, suspected secondary to missed dialysis, she was administered IV lasix pending HD session with improvement following dialysis. Echocardiogram with normal LV systolic function, EF 55%, moderate to severe mitral annular calcification, trivial MV insufficiency, mild TV insufficiency, mild diffuse AV thickening, transmitral Doppler flow suggestive of impaired relaxation LV. Patient discharged on regimen lisinopril with encouragement strict HD compliance to avoid overload with Nephrology routine follow-up. Patient discharged in improved stable condition with follow-up with PCP, Dr. Arteaga, Nephrology. Oxygenation testing performed for discharge and patient required 2-3L NC which was arranged, aerosols and nebulizer also set-up upon discharge. Discharge Time: > 35 Minutes DAY OF DISCHARGE PROGRESS NOTE: Subjective: Patient without acute event overnight per self and nursing report. Patient denies fever, chills, nausea, emesis, abdominal pain, chest pain or worsened dyspnea. She feels as though she has improved and is eager for discharge. Patient agreeable to discharge to home. Patient will be discharged with follow-up with primary care physician in addition to Hem/Onc and Nephrology. Objective: T 98, heart rate 94, BP 125/56, respiratory rate 16, 96% on 2 L nasal cannula. Physical Examination: General: awake, alert, oriented x 3 and cooperative, seated upright in the bedside chair, NAD. Skin: normal color, turgor, no icterus, cyanosis. HEENT: AT/NC, EOMI, PERRLA, MMM, hair loss evident. Lungs: Diminished BS BL, mildly coarse BL, moderate effort, no wheezing, no rales. Heart: Regular rate and rhythm; no gallop, rub audible. Abdomen: soft, NTTP, ND, normal BS. Neurological: patient awake, alert, oriented x 3; cognitive function appears intact upon questioning,; pupils equally reactive to light and accomodation; cranial nerves II-XII grossly normal, moving all 4 extremities, strength improved, moderately globally decreased secondary to recent acute presentation. Psychiatric: affect appears fatigued, flat, no acute evidence of depressive or anxiety feelings. Assessment and Plan: Please see hospital summary above. Inpatient E AND M: [id number] Disch Hosp 06/11/17 1452 <Electronically signed by Isi Murphy > Date Isi Murphy cc: EDWARD Pierre; Isi Fink DO * Signed ADDENDUM by EDWARD Pierre on 06/11/17 at 1326 Code Visit Patient also had no prior home nebulizer therapy, however with underlying CHF, lung cancer, and recurrent pna, we ordered for her to have a nebulizer and albuterol to achieve maximal symptom relief and improvement in her respiratory status. 06/11/17 1326 <Electronically signed by Omer LEON> Date Omer Pierre cc: EDWARD Pierre; Isi Murphy; Lawrence Fink DO * Signed Addendum entered and electronically signed by EDWARD Todd 06/11/17 13:26: Code Visit Patient also had no prior home nebulizer therapy, however with underlying CHF, lung cancer, and recurrent pna, we ordered for her to have a nebulizer and albuterol to achieve maximal symptom relief and improvement in her respiratory status. Original Note: Discharge Date and Diagnosis Date of Admission: 06/07/17 Date of Discharge: 06/11/17 - Primary Discharge Diagnosis Acute hypoxic respiratory failure 2/2 Acute on chronic diastolic CHF and Acute recurrent streptococcal pna ESRD Lung, Colon, Cervical CA HTN Chronic normocytic anemia 2/2 ESRD - Secondary Discharge Diagnosis Chronic Problems Bacteremia (Chronic) 02/22/16 Bld Cx preliminary Gram positive keyla Endometrial cancer (Chronic) Status post hysterectomy, cystectomy and partial colectomy due to metastatic disease End-stage renal disease on hemodialysis (Chronic) History of hysterectomy for cancer (Chronic) History of nephrectomy (Chronic) Anemia of chronic renal failure, stage 5 (Chronic) Anemia of chronic renal failure (Chronic) Hypertension (Chronic) Obesity (BMI 30-39.9) (Chronic) History of colostomy (Chronic) History of ileal conduit (Chronic) Hospital Course and Treatment Imaging Results: Echo: Interpretation Summary The study was technically difficult. Left ventricular systolic function is normal. The estimated ejection fraction is 55 %. There is moderate to severe mitral annular calcification. Extension of the mitral annular calcification onto the posterior mitral valve. Trivial mitral valve insufficiency. Mild eccentric tricuspid valve insufficiency. Mild diffuse aortic valve thickening. Transmitral doppler flow suggestive of impaired relaxation of left ventricle RAD/Chest 1 View (Portable) IMPRESSION: Diffuse bilateral infiltrates. Radiographic follow-up is recommended. Blunting of the right costophrenic angle. RAD/Chest PA and Lateral IMPRESSION: Worsening bilateral perihilar infiltrates with small right pleural effusion. Consultations: Andrew - nephrology 06/09/17 17:47 Consult: Onc/Wound/wine consultant Routine Comment: Reason for Consult:: colostomy, ileostomy Operations: None Summary of Care Provided: Physical exam on day of discharge: General: Resting comfortably NAD Psych: A/Ox3 normal affect HEENT: PEARRLA AT NC Neck: Supple NT CV: RRR no m/t/r/g/h Resp: CTA Abd: [id number] Soft NT no guarding or rigidity Ext: DP2+= no edema Skin: W/D normal turgor Lymph/Heme: No active bleeding or adenopathy Neuro: CN2-12 intact Hospital course: The patient is a 57 year old F with a history of lung, cervical, colon cancer patient of Dr. Arteaga undergoing chemotherapy, end-stage renal disease, hypertension, who presented to the emergency room with chief complaint of shortness of breath cough. She recently had pneumococcal pneumonia and bacteremia with his Rhizobium radiobacter and influenza a in February of this year, treated by infectious disease with Levaquin. She had missed her dialysis session prior to presentation to the hospital. She stated she was too sick. She had an x-ray that showed them demonstrated bilateral pulmonary infiltrates and pulmonary edema. She is admitted to the hospital started on Rocephin and azithromycin for possible underlying pneumonia. These were escalated as she had recent pneumonia and his renal compromise secondary to her cancer is placed on Zosyn. She underwent dialysis that day and had significant improvement in her chest x-ray and and her shortness of breath. Echocardiogram demonstrated preserved ejection fraction of 55%. She did have initial high increased oxygen demand 4 L during the day and BiPAP at night. She is able to be weaned down to 2 L of oxygen at rest. Her blood cultures were negative. She did have a positive strep urinary antigen so her pneumonia was felt to be pneumococcal. She was transitioned to oral Augmentin at a dose appropriate for end-stage renal disease. She was unable to be completely weaned down off of oxygen and requires ongoing oxygen at discharge. She did have some weakness and debility however she declined home health care at this time. She was discharged home in stable condition and will need to follow-up with Dr. Arteaga as well as with her primary care provider. This patient was seen by Omer Pierre PA-C under the supervision of Doctor Katherine. [] Discharge Diet: Low fat/ Low Cholesterol, 2000 mg Sodium Diet Discharge Activity: Return to Normal Activity Home Medications: Medications to take at Discharge Calcium Acetate [Phoslo Gel Cap] 2 cap PO TID 07/23/14 Docusate Sodium [Colace] 100 mg PO BID PRN 07/23/14 Folic Acid 1 mg PO DAILY@0800 07/23/14 Amlodipine [Norvasc] 10 mg PO DAILY 02/14/15 Lisinopril [Zestril] 20 mg PO BID 02/14/15 Ergocalciferol [Vitamin D] 50,000 unit PO TH 03/02/16 Famotidine [Pepcid AC] 20 mg PO BID PRN 03/02/16 Acetaminophen [Tylenol] 650 mg PO BID PRN 02/16/17 B Complex W-C No.20/Folic Acid [Nephrocaps Softgel] 1 mg PO DAILY 06/07/17 Clobetasol Propionate/Emoll [Clobetasol Emollient 0.05% Crm] 15 gm TP BID PRN 06/07/17 Ondansetron [Zofran] 8 mg PO Q8H PRN PRN 06/07/17 Albuterol Aerosols [Ventolin Aerosols] 2.5 mg INHALATION Q2H PRN PRN #120 vial.neb. 06/11/17 Amoxicillin/Potassium Clav [Augmentin 500-125 Tablet] 1 ea PO DAILY #3 tab 06/11/17 Following Prescrptions Were Given to Patient: Albuterol Aerosols [Ventolin Aerosols] 2.5 mg INHALATION Q2H PRN PRN #120 vial.neb. PRN Reason: Sob AND /Or Wheezing Amoxicillin/Potassium Clav [Augmentin 500-125 Tablet] 1 ea PO DAILY #3 tab Primary Care Physician: Lawrence Dozier DO [Primary Care Provider] - Please follow up with your Primary Care Physician in: 1-2 weeks Please Follow Up With: Eric Arteaga DO When: 1-2 weeks Please Follow Up With: Elena Morales MD When: Tomorrow Please Follow Up With: Lawrence Dozier DO When: 1-2 weeks Disposition: Home Minutes spent on discharge:: 35 Patient Condition:: Stable Medical Necessity - Tobacco Use Smoking Status: Former smoker Meaningful Use Info Meaningful Use Diagnoses (Choose all that apply): CHF - CHF COCO/ARB ordered at discharge?: Yes Documented LVEF (%): 55 06/11/17 1300 <Electronically signed by Omer LEON> Date Omer LEON Cosigner Signature (if applicable): Date CC: EDWARD Pierre; Isi Murphy; Lawrence Fink DO Signed 12 LEAD ELECTROCARDIOGRAM Observed: 06/11/2017 Status: F Source: [place] 2:50 PM [facility] Cardiovascular Services [address] [place] [address] 12 Lead EKG 06/07/17 1235 MR#: [id number] Acct: [id number] Name: YUN NELSON Rep #: [id number] : 1960 57 From: Eric Spann MD Attending Dr: Isi Murphy Status: ADM IN Ordering Dr: Caleb Nelson MD Date: 06/07/17 Location: [facility] Sex: F C Admitted: 06/07/17 Test Reason : SOB Blood Pressure : / mmHG Vent. Rate : 115 BPM Atrial Rate : 115 BPM P-R Int : 158 ms QRS Dur : 070 ms QT Int : 310 ms P-R-T Axes : 037 071 048 degrees QTc Int : 428 ms Sinus tachycardia Otherwise normal ECG Confirmed by NEHA FARIAS, ERIC ([id number]), index editor FAISAL CLEMENTE ([id number]) on 06/11/2017 2:50:25 PM Referred By: JIMENA 06/11/17 1450 Date Eric Spann MD CC: Isi Murphy; Caleb Nelson MD; Lawrence Fink DO Signed DISCHARGE INSTRUCTION Observed: 06/11/2017 Status: F Source: [place] 11:43 AM [facility] Medical Records Department [address] [place] [address] Instructions for Home/Discharge Instructions 06/11/17 1141 MR#: [id number] Acct: [id number] Name: YUN NELSON Rep #: [id number] : 1960 57 From: Omer LEON PCP: Lawrence Fink DO Status: ADM IN You will use the following diet at home:: Cardiac - <2 grams sodium per day Your food should be the consistency of: Regular Your liquids should be the consistency of: Regular/Thin Discharge Activity: Return to Normal Activity Allergies/Adverse Reactions: Allergies No Known Allergies Allergy (Verified 02/22/17 12:48) Medications to take at Discharge Calcium Acetate [Phoslo Gel Cap] 2 cap PO TID 07/23/14 Docusate Sodium [Colace] 100 mg PO BID PRN 07/23/14 Folic Acid 1 mg PO DAILY@0800 07/23/14 Amlodipine [Norvasc] 10 mg PO DAILY 02/14/15 Lisinopril [Zestril] 20 mg PO BID 02/14/15 Ergocalciferol [Vitamin D] 50,000 unit PO TH 03/02/16 Famotidine [Pepcid AC] 20 mg PO BID PRN 03/02/16 Acetaminophen [Tylenol] 650 mg PO BID PRN 02/16/17 B Complex W-C No.20/Folic Acid [Nephrocaps Softgel] 1 mg PO DAILY 06/07/17 Clobetasol Propionate/Emoll [Clobetasol Emollient 0.05% Crm] 15 gm TP BID PRN 06/07/17 Ondansetron [Zofran] 8 mg PO Q8H PRN PRN 06/07/17 Albuterol Aerosols [Ventolin Aerosols] 2.5 mg INHALATION Q2H PRN PRN #120 vial.neb. 06/11/17 Amox/Clavulanate Tablet [Augmentin Tablet] 875 mg PO BIDCM #5 tab 06/11/17 The following prescriptions were given: Albuterol Aerosols [Ventolin Aerosols] 2.5 mg INHALATION Q2H PRN PRN #120 vial.neb. PRN Reason: Sob AND /Or Wheezing Amox/Clavulanate Tablet [Augmentin Tablet] 875 mg PO BIDCM #5 tab Primary Care Physician: Lawrence Dozier DO [Primary Care Provider] - Please follow up with your Primary Care Physician in: 1-2 weeks Please Follow Up With: Eric Arteaga DO When: 1-2 weeks Please Follow Up With: Elena Morales MD - Resume normal dialysis When: Tomorrow Proposed Discharge Date: 06/11/17 06/11/17 1143 <Electronically signed by Omer LEON> Date Omer LEON CC: Elena Morales MD; Lawrence Fink DO BASIC METABOLIC Collected: 06/11/2017 Status: F Source: [place] PROFILE (BMP) 5:00 AM [facility] REPOSITORY TYPE CODE TESTS RESULT OUT OF RANGE REFERENCE UNITS LAB L501.0100 74-106 mg/dL High GLU 110 Result Comment: Fasting Glucose result from 100 to 125 mg/dL suggests IMPAIRED HOMEOSTASIS per A.D.A. criteria. Please note revised GLUCOSE reference range effective 2017. LAB L501.1000 7-18 mg/dL High BUN 38 LAB L501.1100 0.55-1.02 mg/dL High CREAT,SERUM 6.65 Result Comment: The validity of the calculated GFR AND GFRAA in patients over 70 years has not been determined. Clinical correlation is essential. LAB L501.1110 >60 mL/min Low EST GFR 7 Result Comment: Non- GFR Calc LAB L501.1115 >60 mL/min Low EST GFR - AA 8 Result Comment: GFR Calc LAB L501.1255 ml/min Normal Estimated CRCL 7.56 LAB L501.1300 10-20 RATIO Low BUN/CRE 5.7 LAB L501.2200 8.5-10. mg/dL Normal 1 CA 8.6 LAB L501.5300 136-145 mmol/L Normal NA 140 LAB L501.5600 3.5-5.1 mmol/L Normal K 3.9 LAB L501.5900 98-107 mmol/L Normal CL 102 LAB L501.6100 21.0-32 mmol/L Normal .0 CO2 29.0 LAB L501.6200 5-15 Normal GAP 9 Performed By: #### L500.2500 #### [facility] [address] [place], [address] CBC W/DIFF, AUTOMATED Collected: 06/11/2017 Status: F Source: [place] 5:00 AM [facility]POS[facility] TYPE CODE TESTS RESULT OUT OF RANGE REFERENCE UNITS LAB L100.1000 4.4-11.0 K/mm3 Low WBC 4.3 LAB L100.1200 4.2-5.4 M/mm3 Low RBC 2.60 LAB L100.1300 12.0-15.0 g/dl Low HGB 7.7 LAB L100.1400 37-47 % Low HCT 25.3 LAB L100.1500 81-99 fL Normal MCV 97.3 LAB L100.1600 27.0-32.0 pg Normal MCH 29.6 LAB L100.1700 32-36 g/gl Low MCHC 30.4 LAB L100.1810 11.6-14.6 % High RDW CV 18.0 LAB L100.1820 35.1-43.9 fl High RDW SD 60.7 LAB L100.1900 150-450 K/mm3 Normal PLT 210 LAB L100.2000 6.2-12.0 fl Normal MPV 9.6 LAB L100.2100 47-70 % High NEUT% 75.7 LAB L100.2200 19-41 % Low LY% 12.7 LAB L100.2300 0-10 % Normal MONO% 7.2 LAB L100.2400 0-5 % Normal EO% 3.5 LAB L100.2500 0-1 % Normal BASO% 0.2 LAB L100.2550 0.0-0.9 % Normal IM GRAN % 0.700 Result Comment: IG% - Immature Granulocytes (promyelocytes, myelocytes and metamyelocytes) > 1% indicates that a LEFT SHIFT is Present. LAB L100.2620 2.0-7.7 X10 3/uL Absolute Normal Neut 3.3 LAB L100.2720 0.83-4.51 X10 3/ul Low Absolute Lymph 0.55 LAB L100.4500 SMEAR Normal COMMENT SCANNED LAB L100.7700 Normal MICROCYTES 2+ Performed By: #### L100.0100 #### [facility] [address] [place], [address] Observed: 06/10/2017 Status: F Source: [place] LEGIONELLA ANTIGEN 8:37 PM [facility]INE REPOSITORY Specimen Source: URINE, CLEAN CATCH Legionella, UR Legionella Antigen result interpretation: Negative Presumptive negative for Legionella pneumophila serogroup 1 antigen in urine, suggesting no recent or current infection. Legionella Ag, Urine Negative (See interpretation below) Performed By: #### M300.4500 #### [facility] [address] [facility] [place], [address] STREP Observed: 06/10/2017 Status: F Source: [place] PNEUMONIAE ANTIG(UR,CSF) 8:37 PM [facility] RE[facility]ITORY S pneumo Ag URINE INTERPRETATION Positive Urine Positive for pneumococcal pneumonia. RESULTS CALLED TO [facility] 06/10/17 2154 [address]. REPORT READ BACK BY [facility]. Strep pneumo Test Urine POSITIVE for pneumococcal pneumonia. ORGANISM 1: Streptococcus pneumonia Ag Performed By: #### M300.4600 #### [facility] [address] [facility] [place], [place], [address] CBC-COMPLETE BLOOD CNT Collected: 06/10/2017 Status: F Source: [place] NO DIFF 6:03 AM [facility] REPOSIT[facility] TYPE CODE TESTS RESULT OUT OF RANGE REFERENCE UNITS LAB L100.1000 4.4-11.0 K/mm3 Normal WBC 4.4 LAB L100.1200 4.2-5.4 M/mm3 Low RBC 2.61 LAB L100.1300 12.0-15.0 g/dl Low HGB 7.7 LAB L100.1400 37-47 % Low HCT 25.3 LAB L100.1500 81-99 fL Normal MCV 96.9 LAB L100.1600 27.0-32.0 pg Normal MCH 29.5 LAB L100.1700 32-36 g/gl Low MCHC 30.4 LAB L100.1810 11.6-14.6 % High RDW CV 18.5 LAB L100.1820 35.1-43.9 fl High RDW SD 62.3 LAB L100.1900 150-450 K/mm3 Normal PLT 220 LAB L100.2000 6.2-12.0 fl Normal MPV 9.5 Performed By: #### L100.0500 #### [facility] [address] [place], [address] BASIC METABOLIC Collected: 06/10/2017 Status: F Source: [place] PROFILE (BMP) 6:03 AM [facility] REPOSITORY TYPE CODE TESTS RESULT OUT OF RANGE REFERENCE UNITS LAB L501.0100 74-106 mg/dL Normal GLU 93 Result Comment: Please note revised GLUCOSE reference range effective 2017. LAB L501.1000 7-18 mg/dL High BUN 20 LAB L501.1100 0.55-1.02 mg/dL High CREAT,SERUM 4.63 Result Comment: The validity of the calculated GFR AND GFRAA in patients over 70 years has not been determined. Clinical correlation is essential. LAB L501.1110 >60 mL/min Low EST GFR 10 Result Comment: Non- GFR Calc LAB L501.1115 >60 mL/min Low EST GFR - AA 13 Result Comment: GFR Calc LAB L501.1255 ml/min Normal Estimated CRCL 10.86 LAB L501.1300 10-20 RATIO Low BUN/CRE 4.3 LAB L501.2200 8.5-10 mg/dL Normal .1 CA 8.8 LAB L501.5300 136-14 mmol/L Normal 5 NA 139 LAB L501.5600 3.5-5. mmol/L Normal 1 K 3.7 LAB L501.5900 98-107 mmol/L Normal CL 101 LAB L501.6100 21.0-3 mmol/L Normal 2.0 CO2 31.0 LAB L501.6200 5-15 Normal GAP 7 Performed By: #### L500.2500 #### [facility] [address] [place], [address] Observed: 06/09/2017 Status: F Source: [place] CDIFF (MOLECULAR) 7:35 PM [facility] REPOSITORY Cdiff-Molecular Normal Reference Range = Negative C. Diff DNA Negative- No toxigenic C. Diff DNA Detected NAAT METHOD Testing was performed using nucleic acid amplification Performed By: #### M100.6796 #### [facility] [address] [place], [address] ECHOCARDIOGRAM COMPLETE Observed: 06/09/2017 Status: F Source: [place] 3:27 PM [facility] REPOSITORY [facility] Cardiovascular Services [address] [place] [id number] Echo Complete 06/09/17 0821 MR#: [id number] Acct: [id number] Name: YUN NELSON Rep #: [id number] : 1960 57 From: Eric Spann MD Attending Dr: Nicolas Piedra DO Status: ADM IN Ordering Dr: Omer Pierre Date: 06/08/17 Location: [facility] Sex: F C Admitted: 06/07/17 Reason For Study: CHF Procedure This was a 2D Doppler, Color Flow transthoracic echocardiogram. The exam was of fair technical quality due to diminished acoustic windows. The study was technically difficult. Exam performed portable in patient room. Left Ventricle Normal LV size. Left ventricular systolic function is normal. The estimated ejection fraction is 55 %. Transmitral doppler flow suggestive of impaired relaxation of left ventricle. No regional wall motion abnormalities noted. Right Ventricle Normal RV size. Normal systolic function. Atria Normal left atrium. Normal right atrium. No doppler evidence for ASD. Mitral Valve There is moderate to severe mitral annular calcification. Extension of the mitral annular calcification onto the posterior mitral valve. Trivial mitral valve insufficiency. Tricuspid Valve Normal tricuspid valve. Mild eccentric tricuspid valve insufficiency. Unable to estimate RV systolic pressure/pulmonary artery pressure due to technically difficult study. Aortic Valve Trisinus/trileaflet aortic valve. Mild diffuse aortic valve thickening. Pulmonic Valve The pulmonic valve is not well visualized. Great Vessels Normal sized aortic root. Pericardium/Pleural No pericardial effusion. MMode/2D Measurements AND Calculations LVIDd: 4.7 cm IVSd: 1.0 cm LVOT diam: 1.9 cm LVIDs: 3.2 cm LVPWd: 0.95 cm LVOT area: 2.8 cm2 RVDd: 3.5 cm FS: 32.1 % Ao root diam: 2.7 cm LAV(MOD-bp): 59.2 ml LA A4 area: 20.8 cm2 LA dimension: 2.7 cm LAV(MOD-bp) Indexed: 32.2 ml/m2 LAV(MOD-sp2): 53.4 ml LAV(MOD-sp4): 55.8 ml RA A4 area: 20.2 cm2 Doppler Measurements AND Calculations MV E max mabel: 133.8 cm/sec Lat Peak E' Mabel: 9.6 cm/sec Med Peak E' Mabel: 5.8 cm/sec MV A max mabel: 152.2 cm/sec E/E' lat: 13.9 E/E' med: 23.0 MV E/A: 0.88 MV V2 max: 162.1 cm/sec MV P1/2t max mabel: 142.4 cm/sec Ao V2 max: 221.2 cm/sec MV max P.5 mmHg MV P1/2t: 66.6 msec Ao max P.6 mmHg MV V2 mean: 117.4 cm/sec MV dec slope: 625.8 cm/sec2 Ao V2 mean: 150.4 cm/sec MV mean P.9 mmHg MVA(P1/2t): 3.3 cm2 Ao mean P.2 mmHg MV V2 VTI: 34.5 cm Ao V2 VTI: 40.2 cm MVA(VTI): 2.3 cm2 ROBERT(I,D): 1.9 cm2 ROBERT(V,D): 1.8 cm2 LV V1 max: 144.3 cm/sec SV(LVOT): 78.2 ml PA V2 max: 122.9 cm/sec LV V1 max P.3 mmHg LV V1 mean P.4 mmHg LV V1 mean: 99.5 cm/sec LV V1 VTI: 27.8 cm Interpretation Summary The study was technically difficult. Left ventricular systolic function is normal. The estimated ejection fraction is 55 %. There is moderate to severe mitral annular calcification. Extension of the mitral annular calcification onto the posterior mitral valve. Trivial mitral valve insufficiency. Mild eccentric tricuspid valve insufficiency. Mild diffuse aortic valve thickening. Transmitral doppler flow suggestive of impaired relaxation of left ventricle Ordering Physician: Omer Pierre Referring Physician: Lawrence Dozier Performed By: Karla Campuzano RHIANNON 06/09/17 1527 Date Eric Spann MD CC: EDWARD Pierre; Nicolas Piedra DO; Lawrence Fink DO Date Dictated: 06/09/17 0821 Date Transcribed: 06/09/17 1527 Solar Maintenance Technician: Signed CBC-COMPLETE BLOOD CNT Collected: 06/09/2017 Status: F Source: [place] NO DIFF 5:25 AM [facility] REPOSITORY TYPE CODE TESTS RESULT OUT OF RANGE REFERENCE UNITS LAB L100.1000 4.4-11.0 K/mm3 Normal WBC 4.4 LAB L100.1200 4.2-5.4 M/mm3 Low RBC 2.73 LAB L100.1300 12.0-15.0 g/dl Low HGB 8.1 LAB L100.1400 37-47 % Low HCT 26.0 LAB L100.1500 81-99 fL Normal MCV 95.2 LAB L100.1600 27.0-32.0 pg Normal MCH 29.7 LAB L100.1700 32-36 g/gl Low MCHC 31.2 LAB L100.1810 11.6-14.6 % High RDW CV 18.9 LAB L100.1820 35.1-43.9 fl High RDW SD 66.2 LAB L100.1900 150-450 K/mm3 Normal PLT 188 LAB L100.2000 6.2-12.0 fl Normal MPV 8.7 Performed By: #### L100.0500, L100.4500 #### [facility] [address] [place], [place], [address] DIFFERENTIAL COMMENT Collected: 06/09/2017 Status: F Source: [place] 5:25 AM [facility] REPOSITORY TYPE CODE TESTS RESULT OUT OF RANGE REFERENCE UNITS LAB L100.4500 Normal SMEAR COMMENT Result Comment: 2+ ANISO RARE POLY Performed By: #### L100.0500, L100.4500 #### [facility] [address] [place], [place], [id number] BASIC METABOLIC Collected: 06/09/2017 Status: F Source: [place] PROFILE (BMP) 5:25 AM [facility] REPOSITORY TYPE CODE TESTS RESULT OUT OF RANGE REFERENCE UNITS LAB L501.0100 74-106 mg/dL Normal GLU 91 Result Comment: Please note revised GLUCOSE reference range effective 2017. LAB L501.1000 7-18 mg/dL High BUN 32 LAB L501.1100 0.55-1.02 mg/dL High CREAT,SERUM 6.58 Result Comment: The validity of the calculated GFR AND GFRAA in patients over 70 years has not been determined. Clinical correlation is essential. LAB L501.1110 >60 mL/min Low EST GFR 7 Result Comment: Non- GFR Calc LAB L501.1115 >60 mL/min Low EST GFR - AA 8 Result Comment: GFR Calc LAB L501.1255 ml/min Normal Estimated CRCL 7.64 LAB L501.1300 10-20 RATIO Low BUN/CRE 4.9 LAB L501.2200 8.5-10. mg/dL Normal 1 CA 8.8 LAB L501.5300 136-145 mmol/L Normal NA 139 LAB L501.5600 3.5-5.1 mmol/L Normal K 4.3 LAB L501.5900 98-107 mmol/L Normal CL 101 LAB L501.6100 21.0-32 mmol/L Normal .0 CO2 30.0 LAB L501.6200 5-15 Normal GAP 8 Performed By: #### L500.2500 #### [facility] [address] [facility] [place], [address] CHEST PA AND LATERAL Observed: 06/09/2017 Status: F Source: [place] 12:00 AM [facility] REPOSITORY [facility] Imaging Services [address] [place] [address] Chest PA and Lateral MR#: [id number] Acct: [id number] Name: YUN NELSON Rep #: [id number] : 1960 F 57 From: Dionicio Arizmendi DO PCP: Lawrence Fink DO Status: ADM IN Study: Chest PA and Lateral Date of Exam: 06/09/17 Exam# [id number] Ordering Dr: Omer Pierre STUDY: X-RAY CHEST REASON FOR EXAM: Female, 57 years old. Shortness of breath. TECHNIQUE: PA and lateral views of the chest. COMPARISON: June 07, 2017 FINDINGS: There is progressive bilateral perihilar alveolar infiltrates when compared to the prior study. Question right pleural effusion. The heart remains enlarged. Normal mediastinum. The nacho and pulmonary arteries are obscured by the infiltrates. Normal visualized aortic arch and descending thoracic aorta. No visualized osseous changes. There is no demonstrated abnormality of the visualized soft tissue structures of the upper abdomen. RAD/Chest PA and Lateral IMPRESSION: Worsening bilateral perihilar infiltrates with small right pleural effusion. Electronically Signed: Dionicio Arizmendi DO at 12:20 EDT Tel [phone], Service support , CC: EDWARD Pierre; Lawrence Fink DO Solar Maintenance Technician: Signed CONSULTATION Observed: 06/08/2017 Status: F Source: [place] 11:00 AM [facility] REPOSITORY [facility] Medical Records Department [address] [place] [address] Consultation 06/08/17 1053 MR#: [id number] Acct: [id number] Name: YUN NELSON Rep #: [id number] : 1960 57 From: Elena Morales MD PCP: Lawrence Fink DO Status: ADM IN Y Location: [place] [address] Problem List (1) End-stage renal disease on hemodialysis Status: Chronic Consultation - Renal PCP/ Referring MD: Requesting physician: [] Primary care physician: Lawrence Dozier - History of Present Illness History of Present Illness: The patient is a 57 year old F PMH of ESRD TTS presented with progressive SOB and cough. Patient was admitted with acute hypoxemic respiratory failure due to CHF/ pneumonia Patient was dialyzed last night with 2.4 L UF Patient could not tolerate higher UF due to cramps Feeling better today. On V Mask 50%. ROS; 10 systems review is negative except what mentioned in HPI[] - Allergies Allergies: Allergies No Known Allergies Allergy (Verified 02/22/17 12:48) - Current Medications Current Medications: Current Medications Acetaminophen (Tylenol) 650 mg PO BID PRN PRN Reason: PAIN Last Admin: 06/08/17 06:02 Dose: 650 mg Amlodipine Besylate (Norvasc) 10 mg PO DAILY [facility] Last Admin: 06/08/17 09:19 Dose: 10 mg Calcium Acetate (Phoslo Gel Cap) 1,334 mg PO TIDCM [facility] Last Admin: 06/07/17 17:47 Dose: 1,334 mg Docusate Sodium (Colace) 100 mg PO BID PRN PRN Reason: Constipation Ergocalciferol (Vitamin D) 50,000 unit PO TH KRISTOPHER Famotidine (Pepcid) 20 mg PO BID PRN PRN PRN Reason: ACID REFLUX Folic Acid (Folic Acid) 1 mg PO DAILY@0800 [facility] Last Admin: 06/08/17 09:19 Dose: 1 mg Heparin Sodium (Porcine) () 5,000 units SC BID [facility] Last Admin: 06/08/17 09:19 Dose: 5,000 units Piperacillin Sod/Tazobactam Sod (Zosyn) 3.375 gm in 50 mls @ 12.5 mls/hr IV Q8 [facility] Last Admin: 06/08/17 06:02 Dose: 12.5 mls/hr Sodium Chloride () 250 mls @ 15 mls/hr IV .[id number] PRN PRN Reason: SALINE FLUSH Lisinopril (Zestril) 20 mg PO BID [facility] Last Admin: 06/08/17 09:19 Dose: 20 mg Magnesium Hydroxide (Milk Of Magnesia) 30 ml PO DAILY PRN PRN Reason: Constipation Multivit/Ca Carb/B Cmplx/FA/Prenat (Nephrocaps, Renaphro) 1 capsule PO DAILY [facility] Nutritional Formula (Nepro Carb Steady) 120 ml PO 4X/DAY [facility] Ondansetron HCl (Zofran) 8 mg PO Q8H PRN PRN PRN Reason: NAUSEA Sodium Chloride () 5 - 30 ml IV UD PRN PRN Reason: SALINE FLUSH - Past Medical History Past Medical History (Chronic Problems): Chronic Problems Bacteremia (Chronic) 02/22/16 Bld Cx preliminary Gram positive keyla Endometrial cancer (Chronic) Status post hysterectomy, cystectomy and partial colectomy due to metastatic disease End-stage renal disease on hemodialysis (Chronic) History of hysterectomy for cancer (Chronic) History of nephrectomy (Chronic) Anemia of chronic renal failure, stage 5 (Chronic) Anemia of chronic renal failure (Chronic) Hypertension (Chronic) Obesity (BMI 30-39.9) (Chronic) History of colostomy (Chronic) History of ileal conduit (Chronic) - Past Surgical History Surgical History: hysterectomy - for cervical cancer, - - Left nephrectomy for cancer with rt ileoconduit, Colostomy, Hysterectomy with BL RAHEEL, AVF RUE. - Social History Smoking Status: Former smoker - Family History Paternal History Items: No pertinent history Maternal History Items: No pertinent history - Physical Exam General: Alert, Oriented x3 HEENT: Atraumatic Oral: Moist Mucosa Neck: Supple, No JVD Lungs: - - B/L crackles Cardiovascular: Regular rate, Regular Rhythm, Normal S1, Normal S2 Abdomen: Bowel Sounds Present, Soft, Non Tender Extremities: No clubbing, No cyanosis, No edema Musculoskeletal: No Tenderness to Palpation of Joints or Extremities Lymphatic: No Cervical, Supraclavicular, or Inguinal Adenopathy Neurological: Cranial nerves II-XII grossly intact, Neuro grossly intact Psych/Mental Status: Normal Affect - H Comment: HD access RUE AVF + T and B Vital Signs Temp Pulse Resp BP Pulse Ox 97.5 F L 95 34 H 116/51 L 95 06/08/17 09:00 06/08/17 09:00 06/08/17 09:00 06/08/17 09:00 06/08/17 10:52 Oxygen Flow Rate (L/min) 6 Oxygen Delivery Method Venturi Mask Weight: 83.36 kg Body Mass Index (BMI) 34.5 Intake and Output for Last 24 Hours Output Total 2456 / 2456 Balance -2456 / -2456 Laboratory Tests Past 24 Hrs WBC 10.7 RBC 3.14 L Hgb 9.2 L Hct 29.9 L MCV 95.2 MCH 29.3 MCHC 30.8 L Assessment/Plan 1- ESRD on TTS Last HD session 06/07 with 2.4 L UF Next HD 06/09 If respiratory status worsens , please call me for extra session. As per now I don;t see indication for HD 2- Acute hypoxemic RF due to CHF/Pneumonia Keep O>I with HD and UF continue Abx Continue 02 support as per the primary service to keep S02 > 92% Will continue to follow Elena Morales MD 06/08/17 1100 <Electronically signed by Elena Morales MD> Date Elena Morales MD Cosigner Signature (if applicable): Date CC: Elena Morales MD; Lawrence Fink DO Signed CBC-COMPLETE BLOOD CNT Collected: 06/08/2017 Status: F Source: [place] NO DIFF 6:20 AM [facility] REPOS[facility] TYPE CODE TESTS RESULT OUT OF RANGE REFERENCE UNITS LAB L100.1000 4.4-11.0 K/mm3 Normal WBC 10.7 LAB L100.1200 4.2-5.4 M/mm3 Low RBC 3.14 LAB L100.1300 12.0-15.0 g/dl Low HGB 9.2 LAB L100.1400 37-47 % Low HCT 29.9 LAB L100.1500 81-99 fL Normal MCV 95.2 LAB L100.1600 27.0-32.0 pg Normal MCH 29.3 LAB L100.1700 32-36 g/gl Low MCHC 30.8 LAB L100.1810 11.6-14.6 % High RDW CV 19.0 LAB L100.1820 35.1-43.9 fl High RDW SD 65.7 LAB L100.1900 150-450 K/mm3 Normal PLT 278 LAB L100.2000 6.2-12.0 fl Normal MPV 8.9 Performed By: #### L100.0500, L100.4500 #### [facility] [address] [place], [place], [id number] DIFFERENTIAL COMMENT Collected: 06/08/2017 Status: F Source: [place] 6:20 AM [facility] REPOS[facility]ORY TYPE CODE TESTS RESULT OUT OF RANGE REFERENCE UNITS LAB L100.4500 Normal SMEAR COMMENT SCANNED Result Comment: 2+ MACROCYTOSIS 2+ MICROCYTOSIS 2+ HYPOCHROMASIA 3+ ANISOCYTOSIS Performed By: #### L100.0500, L100.4500 #### [facility] [address] [place], [address] BASIC METABOLIC Collected: 06/08/2017 Status: F Source: [place] PROFILE (BMP) 6:20 AM [facility]POS[facility] TYPE CODE TESTS RESULT OUT OF RANGE REFERENCE UNITS LAB L501.0100 74-106 mg/dL High GLU 110 Result Comment: Fasting Glucose result from 100 to 125 mg/dL suggests IMPAIRED HOMEOSTASIS per A.D.A. criteria. Please note revised GLUCOSE reference range effective 2017. LAB L501.1000 7-18 mg/dL Normal BUN 18 LAB L501.1100 0.55-1.02 mg/dL High CREAT,SERUM 4.28 Result Comment: The validity of the calculated GFR AND GFRAA in patients over 70 years has not been determined. Clinical correlation is essential. LAB L501.1110 >60 mL/min Low EST GFR 11 Result Comment: Non- GFR Calc LAB L501.1115 >60 mL/min Low EST GFR - AA 14 Result Comment: GFR Calc LAB L501.1255 ml/min Normal Estimated CRCL 11.75 LAB L501.1300 10-20 RATIO Low BUN/CRE 4.2 LAB L501.2200 8.5-10 mg/dL Low .1 CA 8.1 LAB L501.5300 136-14 mmol/L Normal 5 NA 137 LAB L501.5600 3.5-5. mmol/L Normal 1 K 4.1 LAB L501.5900 98-107 mmol/L Normal CL 100 LAB L501.6100 21.0-3 mmol/L Normal 2.0 CO2 27.0 LAB L501.6200 5-15 Normal GAP 10 Performed By: #### L500.2500 #### [facility] [address] [facility] [place], [address] EMERGENCY DEPARTMENT Observed: 06/07/2017 Status: F Source: [place] SUMMARY 5:16 PM [facility] REPOSITORY [facility] Medical Records Department [address] [place] [address] Emergency Department Summary 06/07/17 1301 MR#: [id number] Acct: [id number] Name: YUN NELSON Rep #: [id number] : 1960 57 From: Caleb Nelson MD PCP: Lawrence Fink DO Status: ADM IN - ER Visit Summary Date of Service: 06/07/17 Chief Complaint: Shortness of breath History of Present Illness: The patient is a 57 F 3 of end- stage renal disease with dialysis. Last dialysis was Sunday. She has a history of surgical CA with lung metastases. Prior renal CA with the left kidney resected. Urostomy and colostomy bags. Currently on chemo and radiation. Pleural effusions and anemia. Patient states that since Sunday she has been increasing short of breath. Has cough and subjective fever and chills. Denies any chest pain. No hemoptysis. No history of DVT or PE. No recent hospitalization since February where she was admitted for pneumonia. She denies any leg pain or leg swelling. There is no pleuritic chest pain. Physical Examination: Middle-aged female vital signs are stable a blood pressures pending. Pulse ox however is hypoxia 53% on room air on oxygen she is in the low 90s. She is tachycardic. H EENT exam unremarkable neck nontender no JVD no lymphadenopathy. Lungs diminished in both bases. No rales, rhonchi or wheezing. Heart tachycardic no murmur. Abdomen soft and nontender. Normal bowel sounds no peritoneal signs. Both a colostomy and urostomy bag are present. Extremities she moves all 4. Neurovascular intact. Calves nontender without edema or cords. Neurologically she is awake and alert with normal motor strength. Test Results: Chest x-ray shows bilateral pulmonary infiltrates and or pulmonary edema. Clinically is more consistent with pulmonary edema but she has had recent pneumonia and is cannot be ruled out. White count is 6. H AND H 8 and 28. Which is her baseline. Electrolytes unremarkable creatinine of 8 which is her baseline with end- stage renal disease. PT/INR normal. Troponin normal. EKG sinus tachycardia rate of 115. Emergency Department Course and Treatment: Middle-aged female with extensive past medical history short of breath with hypoxia. Treatment Plan: Patient was started on both Rocephin and Zithromax for a potential healthcare acquired pneumonia. I have already spoken to the hospitalist will admit her. She will most likely need dialysis for pulmonary edema and her end-stage renal disease. Disposition: Admission Impression: Dyspnea with hypoxia Acute pulmonary edema Rule out healthcare acquired pneumonia History of end-stage renal disease with dialysis. Cervical CA with metastases Chronic anemia This note was generated with [employer] dictation software. It may contain incorrect words, spelling, and punctuation that were not noted in review of the chart prior to signing ED Disposition - Plan for ED Patient: Chief Complaint: Cough What to do if you have Problems For any increased pain, shortness of breath, bleeding, nausea or vomiting, chest pain, or any unexpected problems, contact your Primary Care Provider. Call [facility] ([phone]) or report to the closest Emergency Room. Call 911 if necessary. 06/07/17 8630 <Electronically signed by Caleb Nelson MD> Date Caleb Nelson MD Cosigner Signature (If Indicated): Date CC: Lawrence Fink DO HISTORY AND PHYSICAL Observed: 06/07/2017 Status: F Source: [place] EXAM 4:10 PM [facility] RE[facility]IT[facility] Medical Records Department [address] [place] [address] History and Physical 06/07/17 1544 MR#: [id number] Acct: [id number] Name: YUN NELSON Rep #: [id number] : 1960 57 From: Vini Whiting MD PCP: Lawrence Fink DO Status: ADM IN Location: [place] [address] Problem List (1) Bacteremia Status: Chronic Comment: 02/22/16 Bld Cx preliminary Gram positive keyla (2) HCAP (healthcare-associated pneumonia) Status: Acute (3) Endometrial cancer Status: Chronic Comment: Status post hysterectomy, cystectomy and partial colectomy due to metastatic disease (4) End-stage renal disease on hemodialysis Status: Chronic (5) History of hysterectomy for cancer Status: Chronic (6) History of nephrectomy Status: Chronic (7) Acute respiratory failure with hypoxemia Status: Acute History of Present Illness Date of Admission: 06/07/17 Chief Complaint: Shortness of breath and cough The patient is a 57 year old F with past medical history of end-stage renal disease on hemodialysis, metastatic cervical cancer, history of pneumococcal pneumonia, anemia of chronic kidney disease, status post colostomy and ileal conduit secondary to colon cancer, she presented to the emergency room due to progressive cough and shortness of breath. The patient normally gets her dialysis on Tuesdays, and Saturdays. She missed her dialysis today due to being sick. in the ED the patient was noted to be hypoxic with pulse oximetry in the 50s and she was placed on supplemental oxygen. She reports no chest pain, fever, purulent cough, abdominal pain, nausea or vomiting. In the ED she underwent a chest x-ray and it showed bilateral pulmonary infiltrates consistent with pulmonary edema, has no fever or leukocytosis. He was given IV Rocephin and azithromycin for possible pneumonia. When I saw her in the ED she was alert and oriented to time place and person she did not appear to have use of her accessory respiratory musculature and she appeared nontoxic. Past Medical History Past Medical History (Chronic Problems): Chronic Problems Bacteremia (Chronic) 02/22/16 Bld Cx preliminary Gram positive keyla Endometrial cancer (Chronic) Status post hysterectomy, cystectomy and partial colectomy due to metastatic disease End-stage renal disease on hemodialysis (Chronic) History of hysterectomy for cancer (Chronic) History of nephrectomy (Chronic) Anemia of chronic renal failure, stage 5 (Chronic) Anemia of chronic renal failure (Chronic) Hypertension (Chronic) Obesity (BMI 30-39.9) (Chronic) History of colostomy (Chronic) History of ileal conduit (Chronic) Allergies No Known Allergies Allergy (Verified 02/22/17 12:48) Home Medications: Ambulatory Orders Medication Instructions Recorded Calcium Acetate [Phoslo Gel Cap] 2 cap PO TID 07/23/14 Surgical History: hysterectomy - for cervical cancer, - - Left nephrectomy for cancer with rt ileoconduit, Colostomy, Hysterectomy with BL RAHEEL, AVF RUE. Smoking Status: Former smoker - *Family History Paternal History Items: No pertinent history Maternal History Items: No pertinent history Review of Systems Comment: All Systems were reviewed with pertinent positives mentioned in the HPI above. VTE Information - Inpt Only VTE Present on Admission: Yes VTE Mechan Device Prophylaxis: SCD's VTE Pharm Prophylaxis ordered?: No - Physical Exam General: Alert, Oriented x3 Neck: Supple, No JVD Lungs: Rales, Rhonchi Cardiovascular: Normal S1, Normal S2 Abdomen: Soft Neurological: Cranial nerves II-XII grossly intact, Deep Tendon Reflexes 2+/4 and Symmetrical, Motor Exam 5/5 strength throughout Psych/Mental Status: Normal Affect Vital Signs Temp Pulse Resp BP Pulse Ox 97.2 F L 103 H 18 140/59 H 96 06/07/17 12:28 06/07/17 14:30 06/07/17 14:30 06/07/17 14:30 06/07/17 14:30 Assessment/Plan 1. Acute respiratory failure with hypoxia secondary to acute pulmonary edema; will continue on supplemental oxygen and wean as tolerated. 2. Acute pulmonary edema secondary to missed dialysis; he has been consulted the patient would need to undergo emergent hemodialysis today. We will challenge her with IV Lasix but she is unlikely to respond to diuretics at this time. 3. Presumptive pneumonia; bilateral infiltrates noted on her CXR most likely represents pulmonary edema, the patient does not have any fever or leukocytosis. However given her immunocompromised status and history of pneumococcal pneumonia with bacteremia in February of this year , I would rather place her on IV Zosyn until all cultures her negative in the next 48 hours. 4. End-stage renal disease; this is on Tuesdays, and Saturdays, she missed dialysis today and now presents with pulmonary edema ,she needs to undergo dialysis today, nephrology is consulted for this. 5. lung cancer involving her right lung , currently receiving on chemotherapy. 6. status post colostomy and ileal conduit secondary to colon cancer; her abdominal exam is benign. 7. essential Hypertension; this is controlled. 8. history of metastatic cervical cancer status post radiation . 9. DVT prophylaxis with subcutaneous heparin. Code Visit Inpatient E AND M: [id number] Init Hosp L3 06/07/17 1610 <Electronically signed by Vini Whiting MD> Date Vini Whiting MD Cosigner Signature: Date (if applicable) CC: Lawrence Fink DO; Vini Whiting MD Signed Observed: 06/07/2017 Status: F Source: [place] CULTURE, BLOOD (WB) 4:00 PM [facility] REPOSITORY BC No growth in 5 days. Performed By: #### M200.1000 #### [facility] [address] [place], [address] CHEST 1 VIEW Observed: 06/07/2017 Status: F Source: [place] (PORTABLE) 12:59 PM [facility] RE[facility]IT[facility] Imaging Services [address] [place] [address] Chest 1 View (Portable) MR#: [id number] Acct: [id number] Name: YUN NELSON Rep #: [id number] : 1960 F 57 From: Jose De Jesus Collado MD PCP: Lawrence Fink DO Status: PRE ER Study: Chest 1 View (Portable) Date of Exam: 06/07/17 Exam# [id number] Ordering Dr: Caleb Nelson MD STUDY: X-RAY CHEST REASON FOR EXAM: Female, 57 years old. Chest pain and cough. TECHNIQUE: Single AP portable view of the chest. COMPARISON: Comparison is made with prior examination dated February 25, 2017. FINDINGS: EKG electrodes are seen. There now is evidence of diffuse bilateral infiltrates with blunting of the right cardiac phrenic angle. Underlying metastasis cannot be excluded. Follow-up is recommended. Normal size heart. Normal mediastinum and nacho. Normal visualized pulmonary arteries. Normal visualized aortic arch and descending thoracic aorta. There are diffuse degenerative changes of the visualized thoracic spine. Normal visualized ribs, clavicles, and shoulders. There is no demonstrated abnormality of the visualized soft tissue structures of the upper abdomen. RAD/Chest 1 View (Portable) IMPRESSION: Diffuse bilateral infiltrates. Radiographic follow-up is recommended. Blunting of the right costophrenic angle. Electronically Signed: Jose De Jesus Collado MD at 13:22 EDT Tel [phone], Service support , CC: Caleb Nelson MD; Lawrence Fink DO Solar Maintenance Technician: Signed PROTHROMBIN TIME W/INR Collected: 06/07/2017 Status: F Source: [place] 12:40 PM [facility] REPOSIT[facility] TYPE CODE TESTS RESULT OUT OF RANGE REFERENCE UNITS LAB L300.4150 11.7-14.9 SECONDS Normal PROTIME 14.7 LAB L300.4200 Normal INR 1.2 Performed By: #### L300.3900 #### [facility] [place], [address] CBC W/DIFF, AUTOMATED Collected: 06/07/2017 Status: F Source: [place] 12:40 PM [facility] REPOSITORY TYPE CODE TESTS RESULT OUT OF RANGE REFERENCE UNITS LAB L100.1000 4.4-11.0 K/mm3 Normal WBC 6.4 LAB L100.1200 4.2-5.4 M/mm3 Low RBC 3.02 LAB L100.1300 12.0-15.0 g/dl Low HGB 8.8 LAB L100.1400 37-47 % Low HCT 28.9 LAB L100.1500 81-99 fL Normal MCV 95.7 LAB L100.1600 27.0-32.0 pg Normal MCH 29.1 LAB L100.1700 32-36 g/gl Low MCHC 30.4 LAB L100.1810 11.6-14.6 % High RDW CV 19.3 LAB L100.1820 35.1-43.9 fl High RDW SD 67.3 LAB L100.1900 150-450 K/mm3 Normal PLT 244 LAB L100.2000 6.2-12.0 fl Normal MPV 8.8 LAB L100.2100 47-70 % High NEUT% 85.0 LAB L100.2200 19-41 % Low LY% 8.4 LAB L100.2300 0-10 % Normal MONO% 5.1 LAB L100.2400 0-5 % Normal EO% 0.6 LAB L100.2500 0-1 % Normal BASO% 0.3 LAB L100.2550 0.0-0.9 % Normal IM GRAN % 0.600 Result Comment: IG% - Immature Granulocytes (promyelocytes, myelocytes and metamyelocytes) > 1% indicates that a LEFT SHIFT is Present. LAB L100.2620 2.0-7.7 X10 3/uL Absolute Neut Normal 5.5 LAB L100.2720 0.83-4.51 X10 3/ul Low Absolute Lymph 0.54 LAB L100.5500 ADEQ PLT EST Normal ADEQUATE LAB L100.7300 ANISO Normal 2+ LAB L100.7500 POLYCHROMASIA Normal RARE LAB L100.7600 HYPOCHROMASIA Normal 2+ LAB L100.7800 MACROCYTE Normal RARE Performed By: #### L100.0100 #### [facility] [address] [place], [address] BASIC METABOLIC Collected: 06/07/2017 Status: F Source: [place] PROFILE (BMP) 12:40 PM [facility] REPOSITORY Order Comment: 'TROP' Serial specimen #1, #2, #3, or #4: 1 TYPE CODE TESTS RESULT OUT OF RANGE REFERENCE UNITS LAB L501.0100 74-106 mg/dL High GLU 128 Result Comment: Fasting Glucose result greater than or equal to 126 mg/dL suggests DIABETES MELLITUS per A.D.A. criteria. Please note revised GLUCOSE reference range effective 2017. LAB L501.1000 7-18 mg/dL High BUN 43 LAB L501.1100 0.55-1.02 mg/dL High alert CREAT,SERUM 8.24 Result Comment: Critical Result(s) Called at: 13:27:00 06/07/2017 by: Ailin Maier to [facility] The validity of the calculated GFR AND GFRAA in patients over 70 years has not been determined. Clinical correlation is essential. LAB L501.1110 >60 mL/min Low EST GFR 5 Result Comment: Non- GFR Calc LAB L501.1115 >60 mL/min Low EST GFR - AA 7 Result Comment: GFR Calc LAB L501.1255 ml/min Normal Estimated CRCL 6.10 LAB L501.1300 10-20 RATIO Low BUN/CRE 5.2 LAB L501.2200 8.5-10. mg/dL Normal 1 CA 8.9 LAB L501.5300 136-145 mmol/L Normal NA 138 LAB L501.5600 3.5-5.1 mmol/L Normal K 4.7 LAB L501.5900 98-107 mmol/L Normal CL 99 LAB L501.6100 21.0-32 mmol/L Normal .0 CO2 30.0 LAB L501.6200 5-15 Normal GAP 9 Performed By: #### L500.2500, L501.4010 #### [facility] [address] [place], [address] TROPONIN-I Collected: 06/07/2017 Status: F Source: [place] 12:40 PM [facility] REPOSITORY Order Comment: 'TROP' Serial specimen #1, #2, #3, or #4: 1 TYPE CODE TESTS RESULT OUT OF RANGE REFERENCE UNITS LAB L501.4010 <0.06 ng/mL Normal < 0.02 TROPONIN-I Result Comment: TROPONIN-I EXPECTED VALUES <0.05 NEGATIVE 0.06 - 0.59 AT RISK OF PA > OR = 0.60 SUGGEST PA Performed By: #### L500.2500, L501.4010 #### [facility] [address] [place], [address] Observed: 06/07/2017 Status: F Source: [place] CULTURE, BLOOD (WB) 12:40 PM [facility] REPOSITORY BC No growth in 5 days. Performed By: #### M200.1000 #### [facility] [address] [place], [address] VA[place]VI ABS GR + CBC Collected: 06/04/2017 Status: F Source: [place] 2:16 PM [facility] REPOSITORY TYPE CODE TESTS RESULT OUT OF REFERENCE UNITS RANGE LAB WWBC 3.70-11.00 k/uL [place] WBC 4.02 LAB WRBC 3.90-5.20 m/uL Low [place] RBC 2.96 LAB WHGB 11.5-15.5 g/dL Low [place] Hemoglobin 8.9 LAB WHCT 36.0-46.0 % Low [place] Hematocrit 29.0 LAB WMCV 80.0-100.0 fL [place] MCV 98.0 LAB WMCH 26.0-34.0 pg [place] MCH 30.1 LAB WMCHC 30.5-36.0 g/dL [place] MCHC 30.7 LAB WRDW 11.5-15.0 % [place] High RDW 18.6 LAB WPLT 150-400 k/uL [place] Platelet Cnt 163 LAB WMPV 9.0-12.7 fL [place] MPV 9.6 Result Comment: Test performed at: [facility] [place] [address] [place] [address]. LAB ABGRAN 1.45-7.50 k/uL Absol Gran 2.99 Count PROGRESS Observed: 06/04/2017 Status: COMPLETED Source: [place] 12:[address] [facility] REPOSITORY HNO ID: [id number] Author: Rosenda Cutler Service: (none) Author Type: Physician Type: Progress Notes Filed: 06/11/2017 3:13 PM Note Text: [employer] Tumor Board Meeting Minutes: Date: 06/04/2017 ID: [id number] Diagnosis: Endocervical adenocarcinoma involving endometrium The tumor genomic profiling report was reviewed for all alterations and therapeutic implications. Recommendations: 1. Target: HER2 [id number] Recommendations: A) Neratinib HER Mutation Basket Study (SUMMIT); [id number]; [facility], [facility] locations B) Neratinib off-label, based on SUMMIT study results: Nature volume 554, pages 189?194 (29 March 2017) This report reflects the consensus opinion of the [employer] Tumor Board with clinical and scientific information available at the time of this discussion. New information may become available regarding clinical trial openings, closures, and/or potentially germline alterations. Ordering physicians should have patient results re-presented at [employer] Tumor Board if significant time has passed since the date of these recommendations. VA[place] ABS GR + CBC Collected: 05/28/2017 Status: F Source: [place] 9:[address] [facility] REPOSITORY TYPE CODE TESTS RESULT OUT OF REFERENCE UNITS RANGE LAB WWBC 3.70-11.00 k/uL Low [place] WBC 3.08 LAB WRBC 3.90-5.20 m/uL Low [place] RBC 2.97 LAB WHGB 11.5-15.5 g/dL Low [place] Hemoglobin 8.8 LAB WHCT 36.0-46.0 % Low [place] Hematocrit 28.9 LAB WMCV 80.0-100.0 fL [place] MCV 97.3 LAB WMCH 26.0-34.0 pg [place] MCH 29.6 LAB WMCHC 30.5-36.0 g/dL Low [place] MCHC 30.4 LAB WRDW 11.5-15.0 % [place] High RDW 18.5 LAB WPLT 150-400 k/uL [place] Platelet Cnt 164 LAB WMPV 9.0-12.7 fL [place] MPV 9.5 Result Comment: Test performed at: [facility] Va[place] [facility] [address] [place] [address]. LAB ABGRAN 1.45-7.50 k/uL Absol Gran 2.33 Count [place] ABS GR + CBC Collected: 05/21/2017 Status: F Source: [place] 9:[address] [facility] REPOSITORY TYPE CODE TESTS RESULT OUT OF REFERENCE UNITS RANGE LAB WWBC 3.70-11.00 k/uL [place] WBC 4.37 LAB WRBC 3.90-5.20 m/uL Low [place] RBC 3.42 LAB WHGB 11.5-15.5 g/dL Low [place] Hemoglobin 10.1 LAB WHCT 36.0-46.0 % Low [place] Hematocrit 32.9 LAB WMCV 80.0-100.0 fL [place] MCV 96.2 LAB WMCH 26.0-34.0 pg [place] MCH 29.5 LAB WMCHC 30.5-36.0 g/dL [place] MCHC 30.7 LAB WRDW 11.5-15.0 % [place] High RDW 18.2 LAB WPLT 150-400 k/uL [place] Platelet Cnt 170 LAB WMPV 9.0-12.7 fL [place] MPV 9.0 Result Comment: Test performed at: [facility], [address] [place] [address]. LAB ABGRAN 1.45-7.50 k/uL Absol Gran 3.40 Count PROGRESS Observed: 05/21/2017 Status: COMPLETED Source: [place] 8:[address] [facility] REPOSITORY HNO ID: [id number] Author: Eugenia Pedersen Service: (none) Author Type: Physician Type: Progress Notes Filed: 05/21/2017 12:27 PM Note Text: HISTORY AND PHYSICAL - BREAST COMPLAINT Yun Nelson 1960 REFERRING PHYSICIAN: Lawrence Dozier DO CHIEF COMPLAINT: Abnormal left breast imaging - left breast- 9:00 8 cm HPI: The patient is a 57 year old female with a complaint of an abnormal mammogram. The patient had a mammogram with ultrasound on May 11 with follow-up imaging and ultrasound on May 08, 2017 which demonstrated: IMPRESSION: SUSPICIOUS OF MALIGNANCY The 0.5 cm x 0.5 cm x 0.3 cm oval nodule in the left breast is at an intermediate suspicion for malignancy. ?A stereotactic biopsy is recommended. SUMMARY: I discussed the finding and recommendation for biopsy with the patient following completion of the exam. She has been scheduled to see the surgeon, Dr. Pedersen on 05/21/17. Bentley hanson/raegan:05/16/2017 12:52:50 Material Hauler: Tesha BAUMAN (R)(Brigida), [facility] letter sent: Abnormal ? Mammogram BI-RADS: 0 Incomplete: needs additional imaging evaluation Ultrasound BI-RADS: 4b Suspicious abnormality - intermediate suspicion of malignancy Solar Maintenance Technician: Raegan Transcribe Date/Time: May 16 2017 10:42A Dictated by : BENTLEY PRINGLE MD This examination was interpreted and the report reviewed and electronically signed by: BENTLEY PRINGLE MD on May 16 2017 12:52PM ?EST The patient denies a history of breast masses. She does not perform a self breast exam routinely. She notes no skin changes. She denies nipple discharge. She notes no axillary masses. She notes no family history of breast problems. She notes no significant breast trauma or breast difficulties in the past. The patient has had no pregnancies. Her last mammogram was 2016. Her last menstrual period was ?. Her first menstrual period was at age 15. The patient has a history of lung cancer for which she is getting weekly treatments on Sunday. She has renal failure. She has hemodialysis with a right upper extremity AV fistula for which she receives dialysis on Sunday, and Saturdays. She has a colostomy The patient is being seen by me today at the request of Dr. Lawrence Dozier DO for my opinion and advice regarding abnormal left breast imaging. 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 Visible endobronchial tumor in trachea, R main bronchus and BI. 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 states this has NOT been an issue - Personal history of unspecified urinary disorder PAST SURGICAL HISTORY Procedure Laterality Date - BRONCHOSCOPY - COLONOSCOP W/ OR W/O BRSH SPEC 12/27/2009 recto-vaginal fistula - COLONOSCOP W/ OR W/O BRS SPEC 12/03/2013 normal - COLOSTOMY 06/10/10 - EGD W/O OR W/BRUSH/WASH 12/27/2009 EGD - EGD W/O OR W/BRUSH/WASH 12/03/2014 normal - INSRT UTER TANDMS/VAG OVOIDS 10/26/09 INSERT UTERINE TANDEMS FOR CLINICAL BRACHYTHERAPY performed by ADELA JOY at OR - LAPAROSCOPIC NEPHRECTOMY- CHERI 08/17/2009 Left: pT2, Clear Cell RCC, 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 - PAST SURGICAL HISTORY OF 06/22/11 Debridement R inf pubic ramus-osteomyelitis - PAST SURGICAL HISTORY OF 06/2011 urostomy - PAST SURGICAL HISTORY OF 08/2013 surgery on right arm for dialyasis - PELVIC EXAMINATION W ANESTH 06/22/2011 EUA/cysto - PELVIC EXENTERATION 09/07/2011 Current Outpatient Prescriptions: clobetasol (TEMOVATE) 0.05 % cream Apply 1 application to affected area twice daily. As needed for rash on arms Disp: 60 g Rfl: 3 STOOL SOFTENER 100 mg capsule TAKE 1 CAPSULE TWICE A DAY Disp: 60 capsule Rfl: 0 amLODIPine (NORVASC) 10 mg tablet Take 10 mg by mouth once daily. Disp: Rfl: famotidine (PEPCID) 20 mg tablet Take 1 tablet by mouth twice daily as needed (stomach upset). Disp: Rfl: lisinopril (ZESTRIL, PRINIVIL) 20 mg tablet Take 20 mg by mouth once daily. Disp: Rfl: calcium acetate 667 mg tab Take 667 mg by mouth three times daily. Disp: Rfl: b complex, c, folic acid 1 mg renal vitamins (TRIPHROCAPS) 1 mg capsule Take 1 capsule by mouth once daily. Disp: Rfl: lisinopril (ZESTRIL, PRINIVIL) 10 mg tablet Disp: Rfl: folic acid 1 mg tablet Take 1 tablet by mouth once daily. Disp: 30 tablet Rfl: 11 ondansetron (ZOFRAN) 8 mg tablet Take 1 tablet by mouth every 8 hours as needed for Nausea/Vomiting. Indications: CANCER CHEMOTHERAPY-INDUCED NAUSEA AND VOMITING Disp: 30 tablet Rfl: 2 ERGOCALCIFEROL, VITAMIN D2, ORAL Take 1 capsule by mouth. Once weekly Disp: Rfl: acetaminophen (TYLENOL) 325 mg tablet Take 650 mg by mouth every 6 hours as needed. Disp: Rfl: No current facility-administered medications for this visit. ALLERGIES: Review of patient's allergies indicates no known allergies. 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 Spouse still active smoker, in home. Alcohol use: No Drug use: No Sexual activity: Yes Partners with: Male Other Topics Concern Service No Blood Transfusions Yes Caffeine Concern No Occupational Exposure No Hobby Hazards No Sleep Concern No Stress Concern No Weight Concern No Special Diet No Back Care No Exercise Yes Comment:sometimes Bike Helmet No Seat Belt No Self-Exams Yes FAMILY HISTORY: FAMILY HISTORY Problem Relation Age of Onset - No cancer [OTHER] Other No known family histories of any cancer. - Diabetes Sister - Multiple Sclerosis Sister REVIEW OF SYMPTOMS: The review of systems data was entered by the nurse and reviewed by de Nursing Notes: Luis Alfredo Alcantar LPN 05/21/2017 8:15 AM Signed REVIEW OF SYSTEMS: General: The patient NOTES fatigue, denies weight loss, denies weight gain, denies feeling hot, and NOTES feelings of cold. Eyes: The patient denies glaucoma, denies eye injury/surgery, wears glasses or contacts. Ear/Nose/Throat: The patient denies allergies, denies hayfever, denies ear infections, and denies bloody noses. Cardiovascular: The patient denies chest pain, denies heart disease, NOTES high blood pressure,denies cardiac stent, denies prior heart attack, denies irregular heart beat, denies high cholesterol, NOTES poor circulation, denies heart failure, other cardiac issues, denies claudication, NOTES cold feet, denies peripheral arterial stent. Respiratory: The patient denies tuberculosis, denies pneumonia, denies frequent cough, denies pulmonary embolism, denies shortness of breath, and denies coughing up blood. Gastrointestinal: The patient denies difficulty swallowing, denies acid reflux, denies ulcers, denies vomiting, denies jaundice/hepatitis, denies gallbladder problems, denies black or tarry stools, denies hemorrhoids, denies bleeding from rectum, denies diverticulitis, denies constipation, denies diarrhea, denies loss of stool control, and denies hernias. Kidney/Bladder: The patient NOTES kidney stones, denies urine infections, and denies bloody urine, Kidney Failure Skin: The patient denies a history of skin cancer, denies bleeding/changing moles, and NOTES a history of skin rash. Neurologic: The patient denies a history of epilepsy/convulsions, denies headaches, denies head/spinal injuries, and denies stroke/TIA. Psychiatric: The patient denies psychiatric medications, denies depression, and denies voices, denies substance abuse. Endocrine: The patient denies thyroid disorders, denies diabetes, and denies hormonal problems. Hematologic: The patient NOTES a history of bruising, denies bleeding, and NOTES anemia, denies blood clots. Infections: The patient denies a history of measles and mumps, denies rheumatic fever, and denies sexually transmitted diseases. Musculoskeletal: The patient denies back pain/injury, denies back problems, denies sciatica, denies knee/foot trouble, NOTES arthritis, or denies gout. When was patient's last Mammogram screening? 04/2017 Last Colonoscopy: 12/02 Luis Alfredo Alcantar [employer] PHYSICAL EXAMINATION: General: The patient is 57 year old female, well nourished, well hydrated in no acute distress. The patient is oriented to time, place, and person. VITALS: Blood pressure 142/76, pulse 96. There is no height or weight on file to calculate BMI. HEENT: Normal cephalic, ataumatic, pupils are equally round, sclera are anicteric, mucous membranes are moist, oropharynx is clear. Neck has a fullness in her upper neck consistent with lymphadenopathy. Thyroid is unremarkable. Extremities: no clubbing, cyanosis or edema. Right upper extremity-AV fistula with a palpable thrill, good flow on ultrasound without signs of thrombus Breast: Visual inspection reveals no retractions, nipple inversion, or skin changes. Palpation of the right breast reveals no dominant or suspicious masses. Palpation of the left breast reveals no dominant or suspicious masses. Axillary exam demonstrates no suspicious masses in either the left or right axilla. There is no nipple discharge expressed from either the left or right breast. LABORATORY VALUES: As Noted RADIOLOGIC STUDIES: As Noted Intraoffice ultrasound was obtained. The area of abnormality was not seen at the 9:00 position 8 cm. Assessment IMPRESSION: Abnormal left breast imaging- PLAN: I plan to perform a ultrasound guided core biopsy of the left breast. The planned surgical procedure was discussed extensively with the patient. The risks, benefits, anticipated outcomes and possible complications were mentioned. My staff has also explained the procedure in understandable terms and the patient was given the option to take printed material concerning the planned procedure. The patient had the opportunity to ask questions concerning the planned procedure. The patient freely consents to the planned procedure. We discussed the possibility of stereotactic biopsy, but given the patient's body habitus with a colostomy. She is reluctant to try laying on her stomach for breast imaging. Further, the abnormality on ultrasound is relatively superficial which would make good sample size, probably impaired and due to her chronic dialysis more likely to have bleeding complication. We will plan for interval radiology department. Follow-up ultrasound guided biopsy. Diagnoses: (R92.8) Abnormality of left breast on screening mammogram (primary encounter diagnosis) My findings have been communicated to Dr. Lawrence Dozier DO via shared medical record. This note will be forwarded to Dr. Lawrence Dozier DO. Return to Clinic: The patient is instructed to follow-up with me in 5 days for ultrasound-guided biopsy. Eugenia Pedersen MD CNOV Observed: 05/21/2017 Status: COMPLETED Source: [place] [address]:[address] [facility] REPOSITORY Office Visit (GENSWS) YUN NELSON ([id number]) 1960 F Date Time Provider Department 05/21/17 8:00 AM EUGENIA PEDERSEN GENSWS During your visit today, we recorded the following information about you: Pulse Blood pressure 96/minute 142/76 Luis Alfredo Alcantar LPN 05/21/2017 8:15 AM Signed REVIEW OF SYSTEMS: General: The patient NOTES fatigue, denies weight loss, denies weight gain, denies feeling hot, and NOTES feelings of cold. Eyes: The patient denies glaucoma, denies eye injury/surgery, wears glasses or contacts. Ear/Nose/Throat: The patient denies allergies, denies hayfever, denies ear infections, and denies bloody noses. Cardiovascular: The patient denies chest pain, denies heart disease, NOTES high blood pressure,denies cardiac stent, denies prior heart attack, denies irregular heart beat, denies high cholesterol, NOTES poor circulation, denies heart failure, other cardiac issues, denies claudication, NOTES cold feet, denies peripheral arterial stent. Respiratory: The patient denies tuberculosis, denies pneumonia, denies frequent cough, denies pulmonary embolism, denies shortness of breath, and denies coughing up blood. Gastrointestinal: The patient denies difficulty swallowing, denies acid reflux, denies ulcers, denies vomiting, denies jaundice/hepatitis, denies gallbladder problems, denies black or tarry stools, denies hemorrhoids, denies bleeding from rectum, denies diverticulitis, denies constipation, denies diarrhea, denies loss of stool control, and denies hernias. Kidney/Bladder: The patient NOTES kidney stones, denies urine infections, and denies bloody urine, Kidney Failure Skin: The patient denies a history of skin cancer, denies bleeding/changing moles, and NOTES a history of skin rash. Neurologic: The patient denies a history of epilepsy/convulsions, denies headaches, denies head/spinal injuries, and denies stroke/TIA. Psychiatric: The patient denies psychiatric medications, denies depression, and denies voices, denies substance abuse. Endocrine: The patient denies thyroid disorders, denies diabetes, and denies hormonal problems. Hematologic: The patient NOTES a history of bruising, denies bleeding, and NOTES anemia, denies blood clots. Infections: The patient denies a history of measles and mumps, denies rheumatic fever, and denies sexually transmitted diseases. Musculoskeletal: The patient denies back pain/injury, denies back problems, denies sciatica, denies knee/foot trouble, NOTES arthritis, or denies gout. When was patient's last Mammogram screening? 04/2017 Last Colonoscopy: 12/02 Luis Alfredo Pedersen MD 05/21/2017 12:27 PM Signed HISTORY AND PHYSICAL - BREAST COMPLAINT Yun Jenny Nelson 1960 REFERRING PHYSICIAN: Lawrence Dozier DO CHIEF COMPLAINT: Abnormal left breast imaging - left breast- 9:00 8 cm HPI: The patient is a 57 year old female with a complaint of an abnormal mammogram. The patient had a mammogram with ultrasound on May 11 with follow-up imaging and ultrasound on May 08, 2017 which demonstrated: IMPRESSION: SUSPICIOUS OF MALIGNANCY The 0.5 cm x 0.5 cm x 0.3 cm oval nodule in the left breast is at an intermediate suspicion for malignancy. ?A stereotactic biopsy is recommended. SUMMARY: I discussed the finding and recommendation for biopsy with the patient following completion of the exam. She has been scheduled to see the surgeon, Dr. Pedersen on 05/21/17. Bentley hanson/raegan:05/16/2017 12:52:50 Material Hauler: Tesha BAUMAN(Sb)(Brigida), [facility] letter sent: Abnormal ? Mammogram BI-RADS: 0 Incomplete: needs additional imaging evaluation Ultrasound BI-RADS: 4b Suspicious abnormality - intermediate suspicion of malignancy Solar Maintenance Technician: Raegan Transcribe Date/Time: May 16 2017 10:42A Dictated by : BENTLEY PRINGLE MD This examination was interpreted and the report reviewed and electronically signed by: BENTLEY PRINGLE MD on May 16 2017 12:52PM ?EST The patient denies a history of breast masses. She does not perform a self breast exam routinely. She notes no skin changes. She denies nipple discharge. She notes no axillary masses. She notes no family history of breast problems. She notes no significant breast trauma or breast difficulties in the past. The patient has had no pregnancies. Her last mammogram was 2016. Her last menstrual period was ?. Her first menstrual period was at age 15. The patient has a history of lung cancer for which she is getting weekly treatments on Sunday. She has renal failure. She has hemodialysis with a right upper extremity AV fistula for which she receives dialysis on Sunday, and Saturdays. She has a colostomy The patient is being seen by me today at the request of Dr. Lawrence Dozier DO for my opinion and advice regarding abnormal left breast imaging. 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 states this has NOT been an issue - Personal history of unspecified urinary disorder PAST SURGICAL HISTORY Procedure Laterality Date - BRONCHOSCOPY - COLONOSCOP W/ OR W/O BRSH SPEC 12/27/2009 recto-vaginal fistula - COLONOSCOP W/ OR W/O BRSH SPEC 12/03/2013 normal - COLOSTOMY 06/10/10 - EGD W/O OR W/BRUSH/WASH 12/27/2009 EGD - EGD W/O OR W/BRUSH/WASH 12/03/2014 normal - INSRT UTER TANDMS/VAG OVOIDS 10/26/09 INSERT UTERINE TANDEMS FOR CLINICAL BRACHYTHERAPY performed by ADELA JOY at OR - LAPAROSCOPIC NEPHRECTOMY- CHERI 08/17/2009 Left: pT2, Clear Cell RCC, 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 - PAST SURGICAL HISTORY OF 06/22/11 Debridement R inf pubic ramus-osteomyelitis - PAST SURGICAL HISTORY OF 06/2011 urostomy - PAST SURGICAL HISTORY OF 08/2013 surgery on right arm for dialyasis - PELVIC EXAMINATION W ANESTH 06/22/2011 EUA/cysto - PELVIC EXENTERATION 09/07/2011 Current Outpatient Prescriptions: clobetasol (TEMOVATE) 0.05 % cream Apply 1 application to affected area twice daily. As needed for rash on arms Disp: 60 g Rfl: 3 STOOL SOFTENER 100 mg capsule TAKE 1 CAPSULE TWICE A DAY Disp: 60 capsule Rfl: 0 amLODIPine (NORVASC) 10 mg tablet Take 10 mg by mouth once daily. Disp: Rfl: famotidine (PEPCID) 20 mg tablet Take 1 tablet by mouth twice daily as needed (stomach upset). Disp: Rfl: lisinopril (ZESTRIL, PRINIVIL) 20 mg tablet Take 20 mg by mouth once daily. Disp: Rfl: calcium acetate 667 mg tab Take 667 mg by mouth three times daily. Disp: Rfl: b complex, c, folic acid 1 mg renal vitamins (TRIPHROCAPS) 1 mg capsule Take 1 capsule by mouth once daily. Disp: Rfl: lisinopril (ZESTRIL, PRINIVIL) 10 mg tablet Disp: Rfl: folic acid 1 mg tablet Take 1 tablet by mouth once daily. Disp: 30 tablet Rfl: 11 ondansetron (ZOFRAN) 8 mg tablet Take 1 tablet by mouth every 8 hours as needed for Nausea/Vomiting. Indications: CANCER CHEMOTHERAPY-INDUCED NAUSEA AND VOMITING Disp: 30 tablet Rfl: 2 ERGOCALCIFEROL, VITAMIN D2, ORAL Take 1 capsule by mouth. Once weekly Disp: Rfl: acetaminophen (TYLENOL) 325 mg tablet Take 650 mg by mouth every 6 hours as needed. Disp: Rfl: No current facility-administered medications for this visit. ALLERGIES: Review of patient's allergies indicates no known allergies. 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 Spouse still active smoker, in home. Alcohol use: No Drug use: No Sexual activity: Yes Partners with: Male Other Topics Concern Service No Blood Transfusions Yes Caffeine Concern No Occupational Exposure No Hobby Hazards No Sleep Concern No Stress Concern No Weight Concern No Special Diet No Back Care No Exercise Yes Comment:ANDquot;sometimesANDquot; Bike Helmet No Seat Belt No Self-Exams Yes FAMILY HISTORY: FAMILY HISTORY Problem Relation Age of Onset - No cancer [OTHER] Other No known family histories of any cancer. - Diabetes Sister - Multiple Sclerosis Sister REVIEW OF SYMPTOMS: The review of systems data was entered by the nurse and reviewed by de Nursing Notes: Luis Alfredo Alcantar LPN 05/21/2017 8:15 AM Signed REVIEW OF SYSTEMS: General: The patient NOTES fatigue, denies weight loss, denies weight gain, denies feeling hot, and NOTES feelings of cold. Eyes: The patient denies glaucoma, denies eye injury/surgery, wears glasses or contacts. Ear/Nose/Throat: The patient denies allergies, denies hayfever, denies ear infections, and denies bloody noses. Cardiovascular: The patient denies chest pain, denies heart disease, NOTES high blood pressure,denies cardiac stent, denies prior heart attack, denies irregular heart beat, denies high cholesterol, NOTES poor circulation, denies heart failure, other cardiac issues, denies claudication, NOTES cold feet, denies peripheral arterial stent. Respiratory: The patient denies tuberculosis, denies pneumonia, denies frequent cough, denies pulmonary embolism, denies shortness of breath, and denies coughing up blood. Gastrointestinal: The patient denies difficulty swallowing, denies acid reflux, denies ulcers, denies vomiting, denies jaundice/hepatitis, denies gallbladder problems, denies black or tarry stools, denies hemorrhoids, denies bleeding from rectum, denies diverticulitis, denies constipation, denies diarrhea, denies loss of stool control, and denies hernias. Kidney/Bladder: The patient NOTES kidney stones, denies urine infections, and denies bloody urine, Kidney Failure Skin: The patient denies a history of skin cancer, denies bleeding/changing moles, and NOTES a history of skin rash. Neurologic: The patient denies a history of epilepsy/convulsions, denies headaches, denies head/spinal injuries, and denies stroke/TIA. Psychiatric: The patient denies psychiatric medications, denies depression, and denies voices, denies substance abuse. Endocrine: The patient denies thyroid disorders, denies diabetes, and denies hormonal problems. Hematologic: The patient NOTES a history of bruising, denies bleeding, and NOTES anemia, denies blood clots. Infections: The patient denies a history of measles and mumps, denies rheumatic fever, and denies sexually transmitted diseases. Musculoskeletal: The patient denies back pain/injury, denies back problems, denies sciatica, denies knee/foot trouble, NOTES arthritis, or denies gout. When was patient's last Mammogram screening? 04/2017 Last Colonoscopy: 12/02 Luis Alfredo Alcantar [employer] PHYSICAL EXAMINATION: General: The patient is 57 year old female, well nourished, well hydrated in no acute distress. The patient is oriented to time, place, and person. VITALS: Blood pressure 142/76, pulse 96. There is no height or weight on file to calculate BMI. HEENT: Normal cephalic, ataumatic, pupils are equally round, sclera are anicteric, mucous membranes are moist, oropharynx is clear. Neck has a fullness in her upper neck consistent with lymphadenopathy. Thyroid is unremarkable. Extremities: no clubbing, cyanosis or edema. Right upper extremity-AV fistula with a palpable thrill, good flow on ultrasound without signs of thrombus Breast: Visual inspection reveals no retractions, nipple inversion, or skin changes. Palpation of the right breast reveals no dominant or suspicious masses. Palpation of the left breast reveals no dominant or suspicious masses. Axillary exam demonstrates no suspicious masses in either the left or right axilla. There is no nipple discharge expressed from either the left or right breast. LABORATORY VALUES: As Noted RADIOLOGIC STUDIES: As Noted Intraoffice ultrasound was obtained. The area of abnormality was not seen at the 9:00 position 8 cm. Assessment IMPRESSION: Abnormal left breast imaging- PLAN: I plan to perform a ultrasound guided core biopsy of the left breast. The planned surgical procedure was discussed extensively with the patient. The risks, benefits, anticipated outcomes and possible complications were mentioned. My staff has also explained the procedure in understandable terms and the patient was given the option to take printed material concerning the planned procedure. The patient had the opportunity to ask questions concerning the planned procedure. The patient freely consents to the planned procedure. We discussed the possibility of stereotactic biopsy, but given the patient's body habitus with a colostomy. She is reluctant to try laying on her stomach for breast imaging. Further, the abnormality on ultrasound is relatively superficial which would make good sample size, probably impaired and due to her chronic dialysis more likely to have bleeding complication. We will plan for interval radiology department. Follow-up ultrasound guided biopsy. Diagnoses: (R92.8) Abnormality of left breast on screening mammogram (primary encounter diagnosis) My findings have been communicated to Dr. Lawrence Dozier DO via shared medical record. This note will be forwarded to Dr. Lawrence Dozier DO. Return to Clinic: The patient is instructed to follow-up with me in 5 days for ultrasound-guided biopsy. MD Eugenia Tripathi MD 05/21/2017 9:01 AM Signed The following instructions are important for you related to your office visit today with the [facility] General Surgeons. INSTRUCTIONS FOR YOUR ULTRASOUND GUIDED BIOPSY Please do not take aspirin or other blood thinners for seven days prior to your ultrasound guided biopsy. Wear comfortable loose fitting clothes. You should not take sedatives prior to the procedure. After the procedure, Steri-Strips and a dressing will be placed on your small incision. The dressing may be removed in two to three days after the procedure. The Steri- Strips should be left in place until they fall off. If you have bleeding from the biopsy site, hold pressure with a clean gauze. If the bleeding continues, contact our office immediately. I recommend taking Advil or Tylenol for the discomfort. You should wear a comfortable but somewhat tight fitting bra. If you have significant bruising, an ice pack may improve your discomfort. Contact our office immediately if you have any questions or concerns. If you note any additional difficulties, questions, or concerns, you should contact our office immediately @ [phone] and ask to be transferred to the General Surgery department. Referring Provider: LAWRENCE DOZIER [[id number]] Allergies As of Date: 05/21/2017 (No Known Allergies) Date Reviewed: 05/21/2017 Reviewed by: Suzie Alanis (Rn) HELDER Ramos - Fully Assessed Reason for Visit: Consult [173] Cmt: Consult Lt breast mass Primary Visit Diagnosis:Abnormality of left breast on screening mammogram [R92.8] Order(s):US BIOPSY BREAST LT [[id number]] Order #: [id number] FUTURE Prescriptions as of 05/21/2017 Sig: CLOBETASOL 0.05 % TOPICAL CRE* Apply 1 application to affect* STOOL SOFTENER 100 MG CAPSULE TAKE 1 CAPSULE TWICE A DAY AMLODIPINE 10 MG TABLET Take 10 mg by mouth once adolfo* FAMOTIDINE 20 MG TABLET Take 1 tablet by mouth twice * LISINOPRIL 20 MG TABLET Take 20 mg by mouth once adolfo* CALCIUM ACETATE 667 MG TABLET Take 667 mg by mouth three ti* VITAMIN B COMPLEX AND VITAMIN* Take 1 capsule by mouth once * LISINOPRIL 10 MG TABLET FOLIC ACID 1 MG TABLET Take 1 tablet by mouth once d* ONDANSETRON HCL 8 MG TABLET Take 1 tablet by mouth every * ERGOCALCIFEROL (VITAMIN D2) O* Take 1 capsule by mouth. Once* ACETAMINOPHEN 325 MG TABLET Take 650 mg by mouth every 6 * Problem List As Of Date 05/21/2017 Noted Resolved Obesity [E66.9] INVALID FOR*09/13/2010 Pallor [R23.1] INVALID FOR*07/10/2009 LBP (low back pain) [M54.5] INVALID FOR*10/25/2012 Vomiting [R11.10] INVALID FOR*09/13/2010 Anemia due to blood loss [D50.0] INVALID FOR*12/27/2009 Dyspnea [R06.00] INVALID FOR*08/26/2009 Chest Pain [R07.9] INVALID FOR*08/26/2009 Cervix cancer [C53.9] INVALID FOR*10/25/2012 More... 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 Radiation cystitis [N30.40] INVALID FOR*10/25/2012 S/P ileal conduit [Z93.6] INVALID FOR*10/25/2012 SUMMARY [V999.95] INVALID FOR* Priority: A More... Progressively worsening kidney function [N18.9]INVALID FOR*04/03/2017 Priority: B More... Hx of cervical cancer [Z85.41] INVALID FOR* Priority: E More... H/o Renal cell cancer [C64.9] INVALID FOR* Priority: F More... DVT prophylaxis [QGD2813] INVALID FOR*11/02/2012 Priority: L More... DISPOSITION AND FOLLOW-UP [V999.01] INVALID FOR*11/02/2012 Priority: M More... Iron deficiency anemia [D50.9] INVALID FOR* Priority: C More... Euthyroid sick syndrome [E07.81] INVALID FOR* Priority: G More... Osteomyelitis [M86.9] INVALID FOR* Priority: D More... Renal failure [N19] INVALID FOR*04/03/2017 End stage renal disease (HCC) [N18.6] INVALID FOR*04/03/2017 Anemia [D64.9] Primary lung cancer with metastasis from lung t*INVALID FOR*09/22/2016 Right middle lobe pneumonia [J18.1] INVALID FOR* Chronic kidney disease, stage V (HCC) [N18.5] More... Cancer of trachea, bronchus, and lung (HCC) [C3*INVALID FOR* More... 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] INVALID FOR* Dialysis patient (HCC) [Z99.2] INVALID FOR* Essential hypertension with goal blood pressure*INVALID FOR* Primary lung cancer with metastasis from lung t*INVALID FOR* Diastolic dysfunction [I51.9] INVALID FOR* Mitral valve insufficiency [I34.0] INVALID FOR* Rash and nonspecific skin eruption [R21] INVALID FOR* Elevated TSH [R94.6] INVALID FOR* Dyspepsia [R10.13] INVALID FOR* ESRD on hemodialysis (HCC) [N18.6, Z99.2] INVALID FOR*04/03/2017 Other instructions from your clinician: The following instructions are important for you related to your office visit today with the [facility] General Surgeons. INSTRUCTIONS FOR YOUR ULTRASOUND GUIDED BIOPSY Please do not take aspirin or other blood thinners for seven days prior to your ultrasound guided biopsy. Wear comfortable loose fitting clothes. You should not take sedatives prior to the procedure. After the procedure, Steri-Strips and a dressing will be placed on your small incision. The dressing may be removed in two to three days after the procedure. The Steri-Strips should be left in place until they fall off. If you have bleeding from the biopsy site, hold pressure with a clean gauze. If the bleeding continues, contact our office immediately. I recommend taking Advil or Tylenol for the discomfort. You should wear a comfortable but somewhat tight fitting bra. If you have significant bruising, an ice pack may improve your discomfort. Contact our office immediately if you have any questions or concerns. If you note any additional difficulties, questions, or concerns, you should contact our office immediately @ [phone] and ask to be transferred to the General Surgery department. Visit Notes: >> Luis Alfredo Alcantar JESSICA SunMay 21, 2017 8:03 AM Status: Signed REVIEW OF SYSTEMS: General: The patient NOTES fatigue, denies weight loss, denies weight gain, denies feeling hot, and NOTES feelings of cold. Eyes: The patient denies glaucoma, denies eye injury/surgery, wears glasses or contacts. Ear/Nose/Throat: The patient denies allergies, denies hayfever, denies ear infections, and denies bloody noses. Cardiovascular: The patient denies chest pain, denies heart disease, NOTES high blood pressure,denies cardiac stent, denies prior heart attack, denies irregular heart beat, denies high cholesterol, NOTES poor circulation, denies heart failure, other cardiac issues, denies claudication, NOTES cold feet, denies peripheral arterial stent. Respiratory: The patient denies tuberculosis, denies pneumonia, denies frequent cough, denies pulmonary embolism, denies shortness of breath, and denies coughing up blood. Gastrointestinal: The patient denies difficulty swallowing, denies acid reflux, denies ulcers, denies vomiting, denies jaundice/hepatitis, denies gallbladder problems, denies black or tarry stools, denies hemorrhoids, denies bleeding from rectum, denies diverticulitis, denies constipation, denies diarrhea, denies loss of stool control, and denies hernias. Kidney/Bladder: The patient NOTES kidney stones, denies urine infections, and denies bloody urine, Kidney Failure Skin: The patient denies a history of skin cancer, denies bleeding/changing moles, and NOTES a history of skin rash. Neurologic: The patient denies a history of epilepsy/convulsions, denies headaches, denies head/spinal injuries, and denies stroke/TIA. Psychiatric: The patient denies psychiatric medications, denies depression, and denies voices, denies substance abuse. Endocrine: The patient denies thyroid disorders, denies diabetes, and denies hormonal problems. Hematologic: The patient NOTES a history of bruising, denies bleeding, and NOTES anemia, denies blood clots. Infections: The patient denies a history of measles and mumps, denies rheumatic fever, and denies sexually transmitted diseases. Musculoskeletal: The patient denies back pain/injury, denies back problems, denies sciatica, denies knee/foot trouble, NOTES arthritis, or denies gout. When was patient's last Mammogram screening? 04/2017 Last Colonoscopy: 12/02 Luis Alfredo Alcantar JESSICA Medications Discontinued During This Encounter calcium acetate (PHOSLO) 667 mg caps* 03/10/2017 05/21/2017 Class: Historical Med Sig: Disc: Erroneous entry Follow-up and Disposition History Recorded Encounter Status:Closed by EUGENIA PEDERSEN MD on 05/21/17 [facility] Observed: 05/16/2017 Status: COMPLETED Source: [place] [place] 12:[address] [facility] REPOSITORY O ID: [id number] Author: Mammography Coordinator Service: (none) Author Type: Physician Type: Letter Filed: 05/17/2017 11:32 PM Note Text: May 16, 2017 PID: [id number] Yun Nelson [address] [facility] [address] [place] [address] Dear Ms. Nelson, Your recent breast imaging exam on 05/16/2017 showed an abnormal area. At this time we recommend further evaluation. This does not necessarily mean that there is a serious problem in your breast, but it should not be ignored. Please contact your physician as soon as possible to discuss the results of this exam and decide what the next steps in your medical care should be. If you have already been notified of these findings, please disregard this letter. Thank you for allowing us to help in meeting your health care needs. Sincerely, Dr. Pringle Interpreting Radiologist [facility] (Abnormal) [facility]CO Observed: 05/16/2017 Status: COMPLETED Source: [place] 12:[address] [facility] REPOSITORY HNO ID: [id number] Author: Mammography Coordinator Service: (none) Author Type: Physician Type: Letter Filed: 05/17/2017 11:32 PM Note Text: May 16, 2017 PID: [id number] Yun Nelson [address] [place] [address] Dear Ms. Nelson, Your recent breast imaging exam on 05/16/2017 showed an abnormal area. At this time we recommend further evaluation. This does not necessarily mean that there is a serious problem in your breast, but it should not be ignored. Please contact your physician as soon as possible to discuss the results of this exam and decide what the next steps in your medical care should be. If you have already been notified of these findings, please disregard this letter. Thank you for allowing us to help in meeting your health care needs. Sincerely, Dr. Pringle Interpreting Radiologist [facility] (Abnormal) [facility] Observed: 05/16/2017 Status: F Source: [facility] 11:24 AM [facility] REPOSITORY * * *Final Report* * * DATE OF EXAM: May 16 2017 11:24AM WRU [id number] - [facility] BRE[facility] LT / PROCEDURE REASON: callback left, abnormal mamm * * * * Physician Interpretation * * * * #[id number] - [facility] DIAGNOSTIC LT UNILATERAL LEFT DIGITAL DIAGNOSTIC MAMMOGRAM WITH CAD: 05/16/2017 HISTORY: Callback Left, Abnormal Mamm. RESULT: TECHNIQUE: The study was acquired using full field digital technology and interpreted from soft copy. Current study was also evaluated with a Computer Aided Detection (CAD). Comparison is made to exams dated: 05/11/2017 mammogram, 05/08/2016 mammogram, 04/07/2015 mammogram - [facility], and 09/02/2012 mammogram - [facility]. The tissue of the left breast is predominantly fatty. There is a new 0.5 cm oval nodule with a circumscribed margin in the left breast middle depth inner region seen on the craniocaudal view only. This not clearly seen on the ML view. No other significant masses or calcifications are seen in the breast. INCOMPLETE: NEEDS ADDITIONAL IMAGING EVALUATION The new 0.5 cm oval nodule in the left breast is indeterminate. An ultrasound is recommended. #[id number] - [facility] [employer] BREAST [employer] LT ULTRASOUND OF LEFT BREAST AND LEFT AXILLA: 05/16/2017 RESULT: Comparison is made to exams dated: 05/11/2017 mammogram, 05/08/2016 mammogram, 04/07/2015 mammogram - [facility], and 09/02/2012 mammogram - [facility]. Color flow and real-time ultrasound of the left breast and axilla were performed. There is a 0.5 cm x 0.5 cm x 0.3 cm oval nodule with a circumscribed margin in the left breast at 9 o'clock middle depth 8 cm from the nipple. This oval nodule is hypoechoic. This correlates with mammography findings. Color flow imaging demonstrates that there is no vascularity present. This is a very subtle sonographic finding. It is much more conspicuous on the mammogram and therefore stereotactic biopsy would be preferred over ultrasound guided biopsy. No abnormalities were seen sonographically in the left axilla. IMPRESSION: SUSPICIOUS OF MALIGNANCY The 0.5 cm x 0.5 cm x 0.3 cm oval nodule in the left breast is at an intermediate suspicion for malignancy. A stereotactic biopsy is recommended. SUMMARY: I discussed the finding and recommendation for biopsy with the patient following completion of the exam. She has been scheduled to see the surgeon, Dr. Pedersen on 05/21/17. Bentley hanson/raegan:05/16/2017 12:52:50 Material Hauler: Tesha BAUMAN(Sb)(Brigida), [facility] letter sent: Abnormal Mammogram BI-RADS: 0 Incomplete: needs additional imaging evaluation Ultrasound BI-RADS: 4b Suspicious abnormality - intermediate suspicion of malignancy Solar Maintenance Technician: Raegan Transcribe Date/Time: May 16 2017 10:42A Dictated by : BENTLEY PRINGLE MD This examination was interpreted and the report reviewed and electronically signed by: BENTLEY PRINGLE MD on May 16 2017 12:52PM EST [id number] Observed: 05/16/2017 Status: COMPLETED Source: UPPER [place] 10:[address] [facility] REPOSITORY HNO ID: [id number] Author: Lashawn Vázquez Service: (none) Author Type: (none) Type: Progress Notes Filed: 05/16/2017 11:37 AM Note Text: Radiology Service Progress Note PATIENT NAME: Yun Nelson DATE OF SERVICE: May 16, 2017 TIME: 10:58 AM PATIENT IDENTITY VERIFICATION COMPLETED USING TWO (2) METHODS: Patient confirmed name verbally and Date of . PATIENT GENDER DATA: Female. status: : No status: NO. PATIENT RELEVANT IMPLANT DATA REVIEWED: Not Applicable RADIOLOGY DEPARTMENT: Ultrasound PERIPHERAL IV DATA: Not applicable SIGNED BY: Lashawn Vázquez May 16, 2017 10:58 AM [facility] DIAGNOSTIC LT Observed: 05/16/2017 Status: F Source: UPPER [place] 10:[address] [facility] REPOSITORY * * *Final Report* * * DATE OF EXAM: May 16 2017 10:43AM [facility] [id number] - [facility] DIAGNOSTIC LT / PROCEDURE REASON: callback left, abnormal mamm * * * * Physician Interpretation * * * * RESULT: #[id number] - [facility] DIAGNOSTIC LT UNILATERAL LEFT DIGITAL DIAGNOSTIC MAMMOGRAM WITH CAD: 05/16/2017 HISTORY: Callback Left, Abnormal Mamm. RESULT: TECHNIQUE: The study was acquired using full field digital technology and interpreted from soft copy. Current study was also evaluated with a Computer Aided Detection (CAD). Comparison is made to exams dated: 05/11/2017 mammogram, 05/08/2016 mammogram, 04/07/2015 mammogram - [facility], and 09/02/2012 mammogram - [facility]. The tissue of the left breast is predominantly fatty. There is a new 0.5 cm oval nodule with a circumscribed margin in the left breast middle depth inner region seen on the craniocaudal view only. This not clearly seen on the ML view. No other significant masses or calcifications are seen in the breast. INCOMPLETE: NEEDS ADDITIONAL IMAGING EVALUATION The new 0.5 cm oval nodule in the left breast is indeterminate. An ultrasound is recommended. #[id number] - [facility] US BREAST LTD LT ULTRASOUND OF LEFT BREAST AND LEFT AXILLA: 05/16/2017 RESULT: Comparison is made to exams dated: 05/11/2017 mammogram, 05/08/2016 mammogram, 04/07/2015 mammogram - [facility], and 09/02/2012 mammogram - [facility]. Color flow and real-time ultrasound of the left breast and axilla were performed. There is a 0.5 cm x 0.5 cm x 0.3 cm oval nodule with a circumscribed margin in the left breast at 9 o'clock middle depth 8 cm from the nipple. This oval nodule is hypoechoic. This correlates with mammography findings. Color flow imaging demonstrates that there is no vascularity present. This is a very subtle sonographic finding. It is much more conspicuous on the mammogram and therefore stereotactic biopsy would be preferred over ultrasound guided biopsy. No abnormalities were seen sonographically in the left axilla. IMPRESSION: SUSPICIOUS OF MALIGNANCY The 0.5 cm x 0.5 cm x 0.3 cm oval nodule in the left breast is at an intermediate suspicion for malignancy. A stereotactic biopsy is recommended. SUMMARY: I discussed the finding and recommendation for biopsy with the patient following completion of the exam. She has been scheduled to see the surgeon, Dr. Pedersen on 05/21/17. Bentley hanson/raegan:05/16/2017 12:52:50 Material Hauler: Tesha BAUMAN(Sb)(Brigida), [facility] letter sent: Abnormal Mammogram BI-RADS: 0 Incomplete: needs additional imaging evaluation Ultrasound BI-RADS: 4b Suspicious abnormality - intermediate suspicion of malignancy Solar Maintenance Technician: Raegan Transcribe Date/Time: May 16 2017 10:42A Dictated by: BENTLEY PRINGLE MD This examination was interpreted and the report reviewed and electronically signed by: BENTLEY PRINGLE MD on May 16 2017 12:52PM EST [id number] CNCO Observed: 05/11/2017 Status: COMPLETED Source: UPPER [place] 5:[address] [facility] REPOSITORY HNO ID: [id number] Author: Mammography Coordinator Service: (none) Author Type: Physician Type: Letter Filed: 05/14/2017 11:34 PM Note Text: May 11, 2017 PID: [id number] Yun Nelson [address] [place] [address] Dear La Nelson, Your recent breast imaging exam on 05/11/2017 showed a possible finding that requires additional imaging studies for a complete evaluation. Most such findings are probably benign (not cancer). Please call [phone] to schedule an appointment for these tests if you have not already done so. Your breast images and report will be kept on file here as part of your permanent medical record and are available for your continuing care. Thank you for allowing us to help in meeting your health care needs. Sincerely, Dr. Mullins Interpreting Radiologist [facility] (Additional imaging) CNOVSP Observed: 05/11/2017 Status: COMPLETED Source: UPPER [place] 11:[address] [facility] REPOSITORY Visit (SP) Office (HEMRADHA) JIMENAYUN D ([id number]) 1960 F Date Time Provider Department 05/11/17 11:20 AM ERIC ARTEAGA During your visit today, we recorded the following information about you: Temperature Pulse Blood pressure Weight 97.6 degrees 83/minute 123/53 83 kg Eric Arteaga DO 05/11/2017 10:58 AM Signed Diagnoses: Cervical cancer and RCC. HPI: Underwent a left sided laparoscopic nephrectomy. The pathology demonstrated a T3 (7 cm) clear cell, renal cell carcinoma. Additionally, at the same time patient underwent a laparoscopic, left pelvic, lymph node dissection and right, periaortic, lymph node biopsy with lysis of adhesions. It appeared that the possible pelvic adenopathy visualized on a PET scan may have been due to a left sided hydrosalpinx and possibly enlarged left ovary. A one enlarged retroperitoneal lymph node was visualized, it was removed and it was found not to contain metastatic cancer. Previous therapy: 1. 04/29/2010 - multiple cervical and vaginal biopsies. 2. 08/17/2009 - Laparoscopic left pelvic lymph node dissection and right periaortic lymph node biopsies, lysis of adhesions. one enlarged retroperitoneal lymph node was visualized, it was removed and it was found not to contain metastatic cancer 3. 08/17/2009 - Laparoscopic left radical nephrectomy. The pathology demonstrated a T3 (7 cm) clear cell, renal cell carcinoma. (Dr Ac) 4. Concurrent Cisplatin/RT 09/13/09 - 10/15/09. Total RT dose 4500 cGy in 25 fx. 5. Shaheen template for brachytherapy with Dr. Vasquez, total dose 2250cGy in 5 fractions 10/27/09-10/29/09. 6. 04/29/2010 - Multiple cervical and vaginal biopsies, negative for recurrent disease 7. 06/10/2010 - Exploratory laparotomy, lysis of adhesions, bilateral pelvic lymphadenectomy. This case was done in conjunction with Dr. 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 8. 06/22/2011 - Exam under anesthesia with cystoscopy. This case was done in conjunction with Dr. Ernesto Burton, who performed exam under anesthesia, biopsies, and curettage of the right pubic ramus with irrigation. 9. 09/07/2011 - Total pelvic exenteration with ileal conduit (Dr. Strong), creation of neovagina (Dr. Polanco) and right pubic ramus biopsies (Dr. Burton). 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 All lymph nodes negative. 10. 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 S/P SBRT to RML (50 Gy in 5 fx from 01/18/2015-01/27/2015. 11. Palliative radiation to the trachea and right lung 10/09/16 to 10/30/16. EGD 11/2013: The examined esophagus was normal. The entire examined stomach was normal. Biopsies were taken with a cold forceps for histology. Estimated blood loss was minimal. The examined duodenum was normal. Biopsies were taken with a cold forceps for evaluation of celiac disease. Estimated blood loss was minimal. Impression: - Normal esophagus. - Normal stomach. Biopsied. - Normal examined duodenum. Biopsied. Colonoscopy 11/2013: The colon (entire examined portion) appeared normal. Impression: - The entire examined colon is normal. Recent CT Noncontrast CT scan of the chest demonstrating interval enlargement of a right middle lobe medial irregularly marginated soft tissue mass. There is subpleural fat deposition at the left lung base with 2 small nodules, the more medial slightly increased in size. There are also 2 diaphragmatic pleural-based nodules which may be stable. She had been undergoing dialysis for about a year. She underwent pelvic exoneration. She developed obstructive uropathy leading to end-stage renal disease. I received a brief note from her dial brusher indicating that the patient has been receiving maximum doses of Procrit and she has been running hemoglobin in the 9's. 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 S/P SBRT to RML (50 Gy in 5 fx from 01/18/2015-01/27/2015. Previous therapy: As above. 1) Radiation to trachea and right lung. Current therapy: 1) Taxol. Patient was admitted to [facility] on 02/22/2017 after presenting to the emergency department with a history of ongoing productive cough, congestion as well as increasing shortness of breath, rhinorrhea fever and chills. She had been seen in the ER 02/21 and was diagnosed with influenza A. She was discharged home on Tamiflu but her symptoms had worsened particularly the cough and sensation of dyspnea. Blood cultures also that had been drawn on 02/21 started growing gram-positive rods. She was diagnosed with right lower lobe pneumonia. Sputum cultures significant for streptococcal pneumonia. Blood cultures grew Rhizobium radiobacter. She received treatment with Rocephin as an inpatient. On discharge she was placed on Levaquin 250 mg every 48 hours with a stop date of 03/06/2017. Oxygen was stable on room air and she did a walking oxygen test prior to discharge indicating she did not need home oxygen. She received a 2 red blood cell transfusion during her admission for hemoglobin low of 6.4 g/dL. At the time of discharge hemoglobin recovered 8.6 g/dL. Presents for ongoing oncologic management. Interim history: She still has a cough off and on. She not short of breath at rest or with walking. No wheezing subjectively. No episode of fever. Appetite is normal. Energy level fair. Dialysis is going well routinely. PMH, medications and allergies personally reviewed by me today. Any changes documented in appropriate section. ROS: Constitutional: Denies episodes of night sweats. Neuro: Denies POND, vertigo and imbalance. HEENT: No recent change in voice, vision or hearing. CVS: Denies exertional chest pain, PND, orthopnea and LE edema. GI: Denies reflux, n/v, change in bowel habits and abdominal pain. No symptoms of stomatitis. : Still gets small amount of urine. Endo: No hot flashes. Derm: No rash. Heme: No unusual bleeding or bruising. Psych: Normal mood. PHYSICAL EXAM: Vitals: Blood pressure 123/53, pulse 83, temperature 36.4 ?C (97.6 ?F), temperature source Oral, weight 83 kg (183 lb). Well-appearing and in no acute distress. EYES: Sclerae are anicteric bilaterally. NECK: Supple. LYMPHATIC: There is no palpable cervical, supraclavicular adenopathy. RESPIRATORY: Inspiratory breath sounds are clear and of normal intensity in all guadalupe with stable diminishment in whole right lung field. CARDIOVASCULAR: Rhythm is regular. ABDOMEN: The abdomen is nondistended. No tenderness. Extremities: Free of edema. SKIN: No jaundice or rash. No petechiae. 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 No focal motor weakness. 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 -ER/KS negative tumor. -She is tolerating single agent Taxol symptomatically very well. -Has required RBC transfusional support. 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 Discussed that a trial trastuzumab added to Taxol is very reasonable because Herceptin may offer benefit without the potential side effects of cytotoxic chemotherapy in the setting of dialysis. Discussed the potential cardiac toxicity of the drug and explained that we would obtain baseline echocardiogram and proceed with the prior authorization process. -I discussed the rationale (based on [employer] results), logistics, potential risks (including ), benefits and alternatives, as well as the personnel involved in the administration of trastuzumab. I answered her questions in detail and she verbalized understanding and agreed with the recommended therapy. Please see the electronic consent document for details of doses and schedule. Plan: -Continue Taxol. -Add Herceptin on weekly schedule if able. -Plan on CT as well as PET scan at next evaluation. Eric Arteaga DO Referring Provider: ERIC ARTEAGA [[id number]] Allergies As of Date: 05/11/2017 (No Known Allergies) Date Reviewed: 05/11/2017 Reviewed by: Cheyenne Jane - Fully Assessed Reason for Visit: Established Patient [175] Primary Visit Diagnosis: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] Other Visit Diagnosis:Malignant neoplasm metastatic to right lung (HCC) [C78.01] Order(s):ECHO [042099] Order #: [id number]: 1 FUTURE Follow-up and Disposition History Recorded Prescriptions as of 05/11/2017 Sig: CLOBETASOL 0.05 % TOPICAL CRE* Apply 1 application to affect* FOLIC ACID 1 MG TABLET Take 1 tablet by mouth once d* STOOL SOFTENER 100 MG CAPSULE TAKE 1 CAPSULE TWICE A DAY AMLODIPINE 10 MG TABLET Take 10 mg by mouth once adolfo* FAMOTIDINE 20 MG TABLET Take 1 tablet by mouth twice * ONDANSETRON HCL 8 MG TABLET Take 1 tablet by mouth every * ERGOCALCIFEROL (VITAMIN D2) O* Take 1 capsule by mouth. Once* LISINOPRIL 20 MG TABLET Take 20 mg by mouth once adolfo* CALCIUM ACETATE 667 MG TABLET Take 667 mg by mouth three ti* VITAMIN B COMPLEX AND VITAMIN* Take 1 capsule by mouth once * ACETAMINOPHEN 325 MG TABLET Take 650 mg by mouth every 6 * Problem List As Of Date 05/11/2017 Noted Resolved Obesity [E66.9] INVALID FOR*09/13/2010 Pallor [R23.1] INVALID FOR*07/10/2009 LBP (low back pain) [M54.5] INVALID FOR*10/25/2012 Vomiting [R11.10] INVALID FOR*09/13/2010 Anemia due to blood loss [D50.0] INVALID FOR*12/27/2009 Dyspnea [R06.00] INVALID FOR*08/26/2009 Chest Pain [R07.9] INVALID FOR*08/26/2009 Cervix cancer [C53.9] INVALID FOR*10/25/2012 More... 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 Radiation cystitis [N30.40] INVALID FOR*10/25/2012 S/P ileal conduit [Z93.6] INVALID FOR*10/25/2012 SUMMARY [V999.95] INVALID FOR* Priority: A More... Progressively worsening kidney function [N18.9]INVALID FOR*04/03/2017 Priority: B More... Hx of cervical cancer [Z85.41] INVALID FOR* Priority: E More... H/o Renal cell cancer [C64.9] INVALID FOR* Priority: F More... DVT prophylaxis [ZGH2725] INVALID FOR*11/02/2012 Priority: L More... DISPOSITION AND FOLLOW-UP [V999.01] INVALID FOR*11/02/2012 Priority: M More... Iron deficiency anemia [D50.9] INVALID FOR* Priority: C More... Euthyroid sick syndrome [E07.81] INVALID FOR* Priority: G More... Osteomyelitis [M86.9] INVALID FOR* Priority: D More... Renal failure [N19] INVALID FOR*04/03/2017 End stage renal disease (HCC) [N18.6] INVALID FOR*04/03/2017 Anemia [D64.9] Primary lung cancer with metastasis from lung t*INVALID FOR*09/22/2016 Right middle lobe pneumonia [J18.1] INVALID FOR* Chronic kidney disease, stage V (HCC) [N18.5] More... Cancer of trachea, bronchus, and lung (HCC) [C3*INVALID FOR* More... 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] INVALID FOR* Dialysis patient (HCC) [Z99.2] INVALID FOR* Essential hypertension with goal blood pressure*INVALID FOR* Primary lung cancer with metastasis from lung t*INVALID FOR* Diastolic dysfunction [I51.9] INVALID FOR* Mitral valve insufficiency [I34.0] INVALID FOR* Rash and nonspecific skin eruption [R21] INVALID FOR* Elevated TSH [R94.6] INVALID FOR* Dyspepsia [R10.13] INVALID FOR* ESRD on hemodialysis (HCC) [N18.6, Z99.2] INVALID FOR*04/03/2017 Encounter Status:Closed by ERIC ARTEAGA DO on 05/11/17 PROGRESS Observed: 05/11/2017 Status: COMPLETED Source: UPPER [place] 10:[address] [facility] REPOSITORY O ID: [id number] Author: Eric Arteaga Service: (none) Author Type: Physician Type: Progress Notes Filed: 05/11/2017 10:58 AM Note Text: Diagnoses: Cervical cancer and RCC. HPI: Underwent a left sided laparoscopic nephrectomy. The pathology demonstrated a T3 (7 cm) clear cell, renal cell carcinoma. Additionally, at the same time patient underwent a laparoscopic, left pelvic, lymph node dissection and right, periaortic, lymph node biopsy with lysis of adhesions. It appeared that the possible pelvic adenopathy visualized on a PET scan may have been due to a left sided hydrosalpinx and possibly enlarged left ovary. A one enlarged retroperitoneal lymph node was visualized, it was removed and it was found not to contain metastatic cancer. Previous therapy: 1. 04/29/2010 - multiple cervical and vaginal biopsies. 2. 08/17/2009 - Laparoscopic left pelvic lymph node dissection and right periaortic lymph node biopsies, lysis of adhesions. one enlarged retroperitoneal lymph node was visualized, it was removed and it was found not to contain metastatic cancer 3. 08/17/2009 - Laparoscopic left radical nephrectomy. The pathology demonstrated a T3 (7 cm) clear cell, renal cell carcinoma. (Dr Ac) 4. Concurrent Cisplatin/RT 09/13/09 - 10/15/09. Total RT dose 4500 cGy in 25 fx. 5. Shaheen template for brachytherapy with Dr. Vasquez, total dose 2250cGy in 5 fractions 10/27/09-10/29/09. 6. 04/29/2010 - Multiple cervical and vaginal biopsies, negative for recurrent disease 7. 06/10/2010 - Exploratory laparotomy, lysis of adhesions, bilateral pelvic lymphadenectomy. This case was done in conjunction with Dr. 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 8. 06/22/2011 - Exam under anesthesia with cystoscopy. This case was done in conjunction with Dr. Ernesto Burton, who performed exam under anesthesia, biopsies, and curettage of the right pubic ramus with irrigation. 9. 09/07/2011 - Total pelvic exenteration with ileal conduit (Dr. Strong), creation of neovagina (Dr. Polanco) and right pubic ramus biopsies (Dr. Burton). 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 All lymph nodes negative. 10. 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 S/P SBRT to RML (50 Gy in 5 fx from 01/18/2015-01/27/2015. 11. Palliative radiation to the trachea and right lung 10/09/16 to 10/30/16. EGD 11/2013: The examined esophagus was normal. The entire examined stomach was normal. Biopsies were taken with a cold forceps for histology. Estimated blood loss was minimal. The examined duodenum was normal. Biopsies were taken with a cold forceps for evaluation of celiac disease. Estimated blood loss was minimal. Impression: - Normal esophagus. - Normal stomach. Biopsied. - Normal examined duodenum. Biopsied. Colonoscopy 11/2013: The colon (entire examined portion) appeared normal. Impression: - The entire examined colon is normal. Recent CT Noncontrast CT scan of the chest demonstrating interval enlargement of a right middle lobe medial irregularly marginated soft tissue mass. There is subpleural fat deposition at the left lung base with 2 small nodules, the more medial slightly increased in size. There are also 2 diaphragmatic pleural-based nodules which may be stable. She had been undergoing dialysis for about a year. She underwent pelvic exoneration. She developed obstructive uropathy leading to end-stage renal disease. I received a brief note from her dial brusher indicating that the patient has been receiving maximum doses of Procrit and she has been running hemoglobin in the 's. 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 S/P SBRT to RML (50 Gy in 5 fx from 01/18/2015-01/27/2015. Previous therapy: As above. 1) Radiation to trachea and right lung. Current therapy: 1) Taxol. Patient was admitted to [facility] on 02/22/2017 after presenting to the emergency department with a history of ongoing productive cough, congestion as well as increasing shortness of breath, rhinorrhea fever and chills. She had been seen in the ER 1 and was diagnosed with influenza A. She was discharged home on Tamiflu but her symptoms had worsened particularly the cough and sensation of dyspnea. Blood cultures also that had been drawn on 02/21 started growing gram-positive rods. She was diagnosed with right lower lobe pneumonia. Sputum cultures significant for streptococcal pneumonia. Blood cultures grew Rhizobium radiobacter. She received treatment with Rocephin as an inpatient. On discharge she was placed on Levaquin 250 mg every 48 hours with a stop date of 03/06/2017. Oxygen was stable on room air and she did a walking oxygen test prior to discharge indicating she did not need home oxygen. She received a 2 red blood cell transfusion during her admission for hemoglobin low of 6.4 g/dL. At the time of discharge hemoglobin recovered 8.6 g/dL. Presents for ongoing oncologic management. Interim history: She still has a cough off and on. She not short of breath at rest or with walking. No wheezing subjectively. No episode of fever. Appetite is normal. Energy level fair. Dialysis is going well routinely. PMH, medications and allergies personally reviewed by me today. Any changes documented in appropriate section. ROS: Constitutional: Denies episodes of night sweats. Neuro: Denies POND, vertigo and imbalance. HEENT: No recent change in voice, vision or hearing. CVS: Denies exertional chest pain, PND, orthopnea and LE edema. GI: Denies reflux, n/v, change in bowel habits and abdominal pain. No symptoms of stomatitis. : Still gets small amount of urine. Endo: No hot flashes. Derm: No rash. Heme: No unusual bleeding or bruising. Psych: Normal mood. PHYSICAL EXAM: Vitals: Blood pressure 123/53, pulse 83, temperature 36.4 ?C (97.6 ?F), temperature source Oral, weight 83 kg (183 lb). Well-appearing and in no acute distress. EYES: Sclerae are anicteric bilaterally. NECK: Supple. LYMPHATIC: There is no palpable cervical, supraclavicular adenopathy. RESPIRATORY: Inspiratory breath sounds are clear and of normal intensity in all [place] with stable diminishment in whole right lung field. CARDIOVASCULAR: Rhythm is regular. ABDOMEN: The abdomen is nondistended. No tenderness. Extremities: Free of edema. SKIN: No jaundice or rash. No petechiae. 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 No focal motor weakness. 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 -ER/KS negative tumor. -She is tolerating single agent Taxol symptomatically very well. -Has required RBC transfusional support. 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 Discussed that a trial trastuzumab added to Taxol is very reasonable because Herceptin may offer benefit without the potential side effects of cytotoxic chemotherapy in the setting of dialysis. Discussed the potential cardiac toxicity of the drug and explained that we would obtain baseline echocardiogram and proceed with the prior authorization process. -I discussed the rationale (based on FoundationOne results), logistics, potential risks (including ), benefits and alternatives, as well as the personnel involved in the administration of trastuzumab. I answered her questions in detail and she verbalized understanding and agreed with the recommended therapy. Please see the electronic consent document for details of doses and schedule. Plan: -Continue Taxol. -Add Herceptin on weekly schedule if able. -Plan on CT as well as PET scan at next evaluation. Eric Arteaga, PROGRESS Observed: 05/11/2017 Status: COMPLETED Source: [place] 10:[address] [facility] REPOSITORY HNO ID: [id number] Author: Tesha Bauman Service: (none) Author Type: (none) Type: Progress Notes Filed: 05/11/2017 10:36 AM Note Text: Radiology Service Progress Note PATIENT NAME: Yun Nelson DATE OF SERVICE: May 11, 2017 TIME: 10:35 AM PATIENT IDENTITY VERIFICATION COMPLETED USING TWO (2) METHODS: Patient confirmed name verbally and Date of . PATIENT GENDER DATA: Female. status: : No status: NO. PATIENT RELEVANT IMPLANT DATA REVIEWED: Not Applicable RADIOLOGY DEPARTMENT: [facility] DATA: Not applicable SIGNED BY: Tesha Bauman May 11, 2017 10:35 AM [facility] SCREENING Observed: 05/11/2017 Status: F Source: [place] 10:[address] [facility] REPOSITORY * * *Final Report* * * DATE OF EXAM: May 11 2017 10:26AM [facility] 0581 - [facility] SCREENING / PROCEDURE REASON: Encounter for screening mammogram for malignant neoplasm of breast * * * * Physician Interpretation * * * * RESULT: #[id number] - [facility] SCREENING BILATERAL DIGITAL SCREENING MAMMOGRAM WITH CAD: 05/11/2017 HISTORY: Encounter For Screening Mammogram For Malignant Neoplasm Of Breast\ Screening Mammogram - patient reports NO breast symptoms /priors available for comparison /SEE TECH NOTE. RESULT: TECHNIQUE: The study was acquired using full field digital technology and interpreted from soft copy. Current study was also evaluated with a Computer Aided Detection (CAD). Comparison is made to exams dated: 05/08/2016 mammogram, 04/07/2015 mammogram - [facility], and 09/02/2012 mammogram - [facility]. The tissue of both breasts is predominantly fatty. There is a new asymmetry in the left breast middle depth medial region seen on the craniocaudal view only. This may be in the lower left breast on lateral imaging. No other significant masses, calcifications, or other findings are seen in either breast. IMPRESSION: INCOMPLETE: NEEDS ADDITIONAL IMAGING EVALUATION The new asymmetry in the left breast is indeterminate. Additional views are recommended. Tania estrada/raegan:05/11/2017 17:12:16 Material Hauler: Tesha BAUMAN(R)(M), [facility] letter sent: Additional Imaging Needed Mammogram BI-RADS: 0 Incomplete: needs additional imaging evaluation Solar Maintenance Technician: Raegan Transcribe Date/Time: May 11 2017 10:27A Dictated by: TANIA MULLINS MD This examination was interpreted and the report reviewed and electronically signed by: TANIA MULLINS MD on May 11 2017 5:12PM EST [id number] HEPATIC FUNCTN PANEL Collected: 05/11/2017 Status: F Source: [place] 9:59 AM [facility] REPOSITORY TYPE CODE TESTS RESULT OUT OF REFERENCE UNITS RANGE LAB ALB 3.9-4.9 g/dL Low Albumin 3.7 LAB TBIL 0.2-1.3 mg/dL Bilirubin, Total 0.3 LAB CBIL <0.2 mg/dL Bilirubin,Conjuga <0.2 jp LAB ALKP 32-117 U/L Alkaline Phosphatase 109 LAB AST 13-35 U/L AST 18 LAB ALT 7-38 U/L ALT 8 LAB TP 6.3-8.0 g/dL Protein, Total 7.3 Performed By: #### HFP, LIPB #### [facility] [address] [place], [place] [address] LIPID PANEL, BASIC Collected: 05/11/2017 Status: F Source: [place] 9:59 AM [facility] [place] REPOSITORY TYPE CODE TESTS RESULT OUT OF REFERENCE UNITS RANGE LAB CHOL <200 mg/dL Cholesterol 195 Result Comment: <200 mg/dL, Desirable 200-239 mg/dL, Borderline high >239 mg/dL, High LAB TRIGLY <150 mg/dL Triglyceride High 189 Result Comment: <150 mg/dL, Normal 150-199 mg/dL, Borderline high 200-499 mg/dL, High >499 mg/dL, Very high LAB HDL >39 mg/dL HDL-Cholesterol Low 36 Result Comment: 40-59 mg/dL, Acceptable >59 mg/dL, High: Negative risk factor for coronary heart disease <40 mg/dL, Low: Positive risk factor for coronary heart disease LAB LDL <100 mg/dL LDL-Cholesterol High 121 Result Comment: <100 mg/dL, Optimal 100-129 mg/dL, Near optimal/above optimal 130-159 mg/dL, Borderline high 160-189 mg/dL, High >189 mg/dL, Very high Secondary prevention optimal LDL Cholesterol levels are recommended to be < 70 mg/dL LAB NONHDL <130 mg/dL Non HDL High Cholesterol 159 Result Comment: <130 mg/dL, Optimal 130-159 mg/dL, Near optimal/above optimal 160-189 mg/dL, Borderline high 190-219 mg/dL, High >219 mg/dL, Very high Secondary prevention optimal non HDL Cholesterol levels are recommended to be < 100 mg/dL LAB FT hrs Fasting Time 10 LAB VLDL <30 mg/dL High VLDL Cholesterol 38 LAB TCHDL <5.10 High TC:HDL Ratio 5.42 LAB LDLHDL <2.54 High LDL:HDL Ratio 3.36 Result Comment: Reference: 1. National Cholesterol Education Program ATP III Guideline At-A-Glance Quick Desk Reference: National Heart, Lung, and Blood [place]. National Institutes of Health. 2001: NIH Publication No. 01-3305. 2. An International Atherosclerosis Society position paper: global recommendations for the management of dyslipidemia: executive summary, Atherosclerosis. 2014: 232(2):410-413. Performed By: #### HFP, LIPB #### [facility] [address] [place] [address] VAISHNAVI ABS GR + CBC Collected: 05/11/2017 Status: F Source: [place] 9:58 AM [facility] REPOSITORY TYPE CODE TESTS RESULT OUT OF REFERENCE UNITS RANGE LAB WWBC 3.70-11.00 k/uL Va[place]navi WBC 3.79 LAB WRBC 3.90-5.20 m/uL Low [place] RBC 3.61 LAB WHGB 11.5-15.5 g/dL Low [place] Hemoglobin 10.6 LAB WHCT 36.0-46.0 % Low [place] Hematocrit 34.7 LAB WMCV 80.0-100.0 fL [place] MCV 96.1 LAB WMCH 26.0-34.0 pg [place] MCH 29.4 LAB WMCHC 30.5-36.0 g/dL [place]navi MCHC 30.5 LAB WRDW 11.5-15.0 % [place] High RDW 19.5 LAB WPLT 150-400 k/uL [place] Platelet Cnt 217 LAB WMPV 9.0-12.7 fL [place]navi MPV 9.0 Result Comment: Test performed at: [facility], [address] [place] [address] Rd[address] [place] [address]. LAB ABGRAN 1.45-7.50 k/uL Absol Gran 2.73 Count PROGRESS Observed: 05/04/2017 Status: COMPLETED Source: [place] 11:[address] [facility] REPOSITORY HNO ID: [id number] Author: Lawrence Dozier Service: (none) Author Type: Physician Type: Progress Notes Filed: 05/04/2017 12:05 PM Note Text: CC: Yun Nelson is a 56 year old female who presents to the office for 3 months follow up HPI: HTN: controlled with Lisinopril and Norvasc medications, denies CP or dyspnea or POND or dizziness/LH No hx of CAD Glucose (mg/dL) Date Value 09/18/2016 87 Potassium (mmol/L) Date Value 09/18/2016 5.5 Sodium (mmol/L) Date Value 09/18/2016 140 Chloride (mmol/L) Date Value 09/18/2016 94 CO2 (mmol/L) Date Value 09/18/2016 31 Creatinine (mg/dL) Date Value 09/18/2016 8.62 Creatinine, Whole Blood (iSTAT) (mg/dL) Date Value 03/28/2017 6.10 BUN (mg/dL) Date Value 09/18/2016 54 Anion Gap (mmol/L) Date Value 09/18/2016 15 Calcium (mg/dL) Date Value 09/18/2016 9.9 Protein, Total (g/dL) Date Value 04/16/2017 8.1 Albumin (g/dL) Date Value 04/16/2017 3.7 Bilirubin, Total (mg/dL) Date Value 04/16/2017 0.3 Alkaline Phosphatase (U/L) Date Value 04/16/2017 90 AST (U/L) Date Value 04/16/2017 19 ALT (U/L) Date Value 04/16/2017 11 ?? Hypertriglyceridemia,never on medications for this, hasn't had this recently rechecked ? Cholesterol Date Value Ref Range Status 04/07/2015 154 100 - 199 mg/dL Final ? HDL Cholesterol Date Value Ref Range Status 04/07/2015 27 (L) >55 mg/dL Final LDL Cholesterol Date Value Ref Range Status 04/07/2015 91 60 - 129 mg/dL Final ? Triglyceride Date Value Ref Range Status 04/07/2015 181 (H) 30 - 149 mg/dL Final ? Primary lung cancer, treated by Dr. Stone and Dr. Perdomo, has routine follow up, metastatic, seeing Dr. Arteaga regularly, on chemotherapy ?? Iron deficiency anemia and vitamin D deficiency associated with ESRD on HD ?? Use of her?handicap placard, difficulty on HD days to walk far and struggles with fatigue chronically due to ESRD. 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 Cared for by Dr. Moy Shredding Specialist, has ESRD with HD Tues, , Sat here in [place]. Takes Nephrocaps as prescribed. she is still taking HD 3 days a week per her right arm fistula. 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 Visible endobronchial tumor in trachea, R main bronchus and BI. - Cervix cancer (HCC) 07/05/2009 Presumed at least stage IIb cervical cancer, radiation completed 10/15/09 - Chronic kidney disease, stage V (HCC) on HD , , Sat, Shredding Specialist Dr. 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 states this has NOT been an issue - Personal history of unspecified urinary disorder PAST SURGICAL HISTORY Procedure Laterality Date - BRONCHOSCOPY - COLONOSCOP W/ OR W/O [facility] SPEC 12/27/2009 recto-vaginal fistula - COLONOSCOP W/ OR W/O [facility] SPEC 12/03/2013 normal - COLOSTOMY 06/10/10 - EGD W/O OR W/BRUSH/WASH 12/27/2009 EGD - EGD W/O OR W/BRUSH/WASH 12/03/2014 normal - INSRT UTER TANDMS/VAG OVOIDS 10/26/09 INSERT UTERINE TANDEMS FOR CLINICAL BRACHYTHERAPY performed by ADELA JOY at OR - LAPAROSCOPIC NEPHRECTOMY- CHERI 08/17/2009 Left: pT2, Clear Cell RCC, 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 - PAST SURGICAL HISTORY OF 06/22/11 Debridement R inf pubic ramus-osteomyelitis - PAST SURGICAL HISTORY OF 06/2011 urostomy - PAST SURGICAL HISTORY OF 08/2013 surgery on right arm for dialyasis - PELVIC EXAMINATION W ANESTH 06/22/2011 EUA/cysto - PELVIC EXENTERATION 09/07/2011 Current Outpatient Prescriptions: folic acid 1 mg tablet Take 1 tablet by mouth once daily. STOOL SOFTENER 100 mg capsule TAKE 1 CAPSULE TWICE A DAY amLODIPine (NORVASC) 10 mg tablet Take 10 mg by mouth once daily. famotidine (PEPCID) 20 mg tablet Take 1 tablet by mouth twice daily as needed (stomach upset). ondansetron (ZOFRAN) 8 mg tablet Take 1 tablet by mouth every 8 hours as needed for Nausea/Vomiting. Indications: CANCER CHEMOTHERAPY-INDUCED NAUSEA AND VOMITING ERGOCALCIFEROL, VITAMIN D2, ORAL Take 1 capsule by mouth. Once weekly lisinopril (ZESTRIL, PRINIVIL) 20 mg tablet Take 20 mg by mouth once daily. calcium acetate 667 mg tab Take 667 mg by mouth three times daily. b complex, c, folic acid 1 mg renal vitamins (TRIPHROCAPS) 1 mg capsule Take 1 capsule by mouth once daily. acetaminophen (TYLENOL) 325 mg tablet Take 650 mg by mouth every 6 hours as needed. clobetasol (TEMOVATE) 0.05 % cream Apply 1 application to affected area twice daily. As needed for rash on arms No current facility-administered medications for this visit. 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 Spouse still active smoker, in home. Alcohol use: No Drug use: No Sexual activity: Yes Partners with: Male Other Topics Concern Service No Blood Transfusions Yes Caffeine Concern No Occupational Exposure No Hobby Hazards No Sleep Concern No Stress Concern No Weight Concern No Special Diet No Back Care No Exercise Yes Comment:sometimes Bike Helmet No Seat Belt No Self-Exams Yes ROS: See HPI PE: BP 134/60 Pulse 76 Temp (Src) 98 (Left Tympanic) Resp 16 Wt 180 lb (81.6kg) Gen: AANDOX3, NAD, non-toxic appearing, cooperative HEENT: PERRLA, EOMIs with lateral deviation right eye, nares without drainage, pharynx without erythema, exudate, lesions, or drainage. Uvula midline. MMM, poor dentition Neck: No LAD, no thyromegaly, no meningismus. CV: RRR, 3/6 HSM LUSB, LLSB murmur, normal s1s2? Lungs: right lower and upper lobes with scattered rhonchi and wheezing, intermittent on left lower/upper lobes rhonchi, intermittent moist cough No edema Thoracic kyphosis Skin: eczematous dry rash on b/l outer arms and thighs and abdomen ASSESSMENT/PLAN: 1. Essential hypertension with goal blood pressure less than 140/90 - ICD9: 401.9, ICD10: I10 (primary diagnosis) - good control - Continue current medication(s) - Encouraged dietary sodium restriction/DASH diet - Recommended regular aerobic exercise. - Recommend home blood pressure monitoring, to bring results in on next visit - Discussed need and benefit for weight loss. - Goal of BP <130/80 2. Visit for screening mammogram - ICD9: V76.12, ICD10: Z12.31 - Set up for mammogram, yearly mammogram recommended - Encouraged monthly BSE - YISSEL SCREENING 3. Iron deficiency anemia, unspecified iron deficiency anemia type - ICD9: 280.9, ICD10: D50.9 - f/u with Lokie Engineer 4. Hypertriglyceridemia - ICD9: 272.1, ICD10: E78.1 - to be determined upon return of lab results - Encouraged following a low fat, low cholesterol diet. - Discussed the benefits of regular aerobic exercise and weight loss. - Check fasting lipid panel - LIPID PANEL BASIC 5. Rash and nonspecific skin eruption - ICD9: 782.1, ICD10: R21 - rx as below - CLOBETASOL 0.05 % TOPICAL CREAM 6. Dialysis patient (HCC) - ICD9: V45.11, ICD10: Z99.2 - f/u with Nephro 7. Primary lung cancer with metastasis from lung to other site, right (HCC) - ICD9: 162.9, ICD10: C34.91 - f/u with Oncologist Lawrence Dozier DO Return if no improvement. Follow up with Lawrence Dozier DO. Discussed risks, benefits, alternatives, and potential side effects of medications. Patient/Guardian expressed understanding and agreed with the plan. See patient instructions. Lawrence Dozier DO [address] [place] [address] CNOV Observed: 05/04/2017 Status: COMPLETED Source: [place] 10:[address] [facility] REPOSITORY Office Visit (FAMPWS) YUN NELSON ([id number]) 1960 F Date Time Provider Department 05/04/17 10:40 AM [facility] During your visit today, we recorded the following information about you: Temperature Pulse Respiration Blood pressure 98 degrees 76/minute 16/minute 134/60 Weight 81.6 kg Lawrence Dozier DO 05/04/2017 12:05 PM Signed CC: Yun Nelson is a 56 year old female who presents to the office for 3 months follow up HPI: HTN: controlled with Lisinopril and Norvasc medications, denies CP or dyspnea or POND or dizziness/LH No hx of CAD Glucose (mg/dL) Date Value 09/18/2016 87 Potassium (mmol/L) Date Value 09/18/2016 5.5 Sodium (mmol/L) Date Value 09/18/2016 140 Chloride (mmol/L) Date Value 09/18/2016 94 CO2 (mmol/L) Date Value 09/18/2016 31 Creatinine (mg/dL) Date Value 09/18/2016 8.62 Creatinine, Whole Blood (iSTAT) (mg/dL) Date Value 03/28/2017 6.10 BUN (mg/dL) Date Value 09/18/2016 54 Anion Gap (mmol/L) Date Value 09/18/2016 15 Calcium (mg/dL) Date Value 09/18/2016 9.9 Protein, Total (g/dL) Date Value 04/16/2017 8.1 Albumin (g/dL) Date Value 04/16/2017 3.7 Bilirubin, Total (mg/dL) Date Value 04/16/2017 0.3 Alkaline Phosphatase (U/L) Date Value 04/16/2017 90 AST (U/L) Date Value 04/16/2017 19 ALT (U/L) Date Value 04/16/2017 11 ?? Hypertriglyceridemia,never on medications for this, hasn't had this recently rechecked ? Cholesterol Date Value Ref Range Status 04/07/2015 154 100 - 199 mg/dL Final ? HDL Cholesterol Date Value Ref Range Status 04/07/2015 27 (L) ANDgt;55 mg/dL Final LDL Cholesterol Date Value Ref Range Status 04/07/2015 91 60 - 129 mg/dL Final ? Triglyceride Date Value Ref Range Status 04/07/2015 181 (H) 30 - 149 mg/dL Final ? Primary lung cancer, treated by Dr. Stone and Dr. Perdomo, has routine follow up, metastatic, seeing Dr. Arteaga regularly, on chemotherapy ?? Iron deficiency anemia and vitamin D deficiency associated with ESRD on HD ?? Use of her?handicap placard, difficulty on HD days to walk far and struggles with fatigue chronically due to ESRD. 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 Cared for by Dr. Moy Shredding Specialist, has ESRD with HD [place]isyn Salmon, Sat here in [place]. Takes Nephrocaps as prescribed. she is still taking HD 3 days a week per her right arm fistula. 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 Visible endobronchial tumor in trachea, R main bronchus and BI. - Cervix cancer (HCC) 07/05/2009 Presumed at least stage IIb cervical cancer, radiation completed 10/15/09 - Chronic kidney disease, stage V (HCC) on HD Madisyn Salmon, [place], Shredding Specialist Dr. 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 states this has NOT been an issue - Personal history of unspecified urinary disorder PAST SURGICAL HISTORY Procedure Laterality Date - BRONCHOSCOPY - COLONOSCOP W/ OR W/O [facility] SPEC 12/27/2009 recto-vaginal fistula - COLONOSCOP W/ OR W/O [facility] SPEC 12/03/2013 normal - COLOSTOMY 06/10/10 - EGD W/O OR W/BRUSH/WASH 12/27/2009 EGD - EGD W/O OR W/BRUSH/WASH 12/03/2014 normal - INSRT UTER TANDMS/VAG OVOIDS 10/26/09 INSERT UTERINE TANDEMS FOR CLINICAL BRACHYTHERAPY performed by ADELA JOY at OR - LAPAROSCOPIC NEPHRECTOMY- [facility]ERI 08/17/2009 Left: pT2, Clear Cell RCC, 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 - PAST SURGICAL HISTORY OF 06/22/11 Debridement R inf pubic ramus-osteomyelitis - PAST SURGICAL HISTORY OF 06/2011 urostomy - PAST SURGICAL HISTORY OF 08/2013 surgery on right arm for dialyasis - PELVIC EXAMINATION W ANESTH 06/22/2011 EUA/cysto - PELVIC EXENTERATION 09/07/2011 Current Outpatient Prescriptions: folic acid 1 mg tablet Take 1 tablet by mouth once daily. STOOL SOFTENER 100 mg capsule TAKE 1 CAPSULE TWICE A DAY amLODIPine (NORVASC) 10 mg tablet Take 10 mg by mouth once daily. famotidine (PEPCID) 20 mg tablet Take 1 tablet by mouth twice daily as needed (stomach upset). ondansetron (ZOFRAN) 8 mg tablet Take 1 tablet by mouth every 8 hours as needed for Nausea/Vomiting. Indications: CANCER CHEMOTHERAPY-INDUCED NAUSEA AND VOMITING ERGOCALCIFEROL, VITAMIN D2, ORAL Take 1 capsule by mouth. Once weekly lisinopril (ZESTRIL, PRINIVIL) 20 mg tablet Take 20 mg by mouth once daily. calcium acetate 667 mg tab Take 667 mg by mouth three times daily. b complex, c, folic acid 1 mg renal vitamins (TRIPHROCAPS) 1 mg capsule Take 1 capsule by mouth once daily. acetaminophen (TYLENOL) 325 mg tablet Take 650 mg by mouth every 6 hours as needed. clobetasol (TEMOVATE) 0.05 % cream Apply 1 application to affected area twice daily. As needed for rash on arms No current facility-administered medications for this visit. 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 Spouse still active smoker, in home. Alcohol use: No Drug use: No Sexual activity: Yes Partners with: Male Other Topics Concern Service No Blood Transfusions Yes Caffeine Concern No Occupational Exposure No Hobby Hazards No Sleep Concern No Stress Concern No Weight Concern No Special Diet No Back Care No Exercise Yes Comment:ANDquot;sometimesANDquot; Bike Helmet No Seat Belt No Self-Exams Yes ROS: See HPI PE: BP 134/60 Pulse 76 Temp (Src) 98 (Left Tympanic) Resp 16 Wt 180 lb (81.6kg) Gen: AANDamp;OX3, NAD, non-toxic appearing, cooperative HEENT: PERRLA, EOMIs with lateral deviation right eye, nares without drainage, pharynx without erythema, exudate, lesions, or drainage. Uvula midline. MMM, poor dentition Neck: No LAD, no thyromegaly, no meningismus. CV: RRR, 3/6 HSM LUSB, LLSB murmur, normal s1s2? Lungs: right lower and upper lobes with scattered rhonchi and wheezing, intermittent on left lower/upper lobes rhonchi, intermittent moist cough No edema Thoracic kyphosis Skin: eczematous dry rash on b/l outer arms and thighs and abdomen ASSESSMENT/PLAN: 1. Essential hypertension with goal blood pressure less than 140/90 - ICD9: 401.9, ICD10: I10 (primary diagnosis) - good control - Continue current medication(s) - Encouraged dietary sodium restriction/DASH diet - Recommended regular aerobic exercise. - Recommend home blood pressure monitoring, to bring results in on next visit - Discussed need and benefit for weight loss. - Goal of BP ANDlt;130/80 2. Visit for screening mammogram - ICD9: V76.12, ICD10: Z12.31 - Set up for mammogram, yearly mammogram recommended - Encouraged monthly BSE - YISSEL SCREENING 3. Iron deficiency anemia, unspecified iron deficiency anemia type - ICD9: 280.9, ICD10: D50.9 - f/u with Lokie Engineer 4. Hypertriglyceridemia - ICD9: 272.1, ICD10: E78.1 - to be determined upon return of lab results - Encouraged following a low fat, low cholesterol diet. - Discussed the benefits of regular aerobic exercise and weight loss. - Check fasting lipid panel - LIPID PANEL BASIC 5. Rash and nonspecific skin eruption - ICD9: 782.1, ICD10: R21 - rx as below - CLOBETASOL 0.05 % TOPICAL CREAM 6. Dialysis patient (HCC) - ICD9: V45.11, ICD10: Z99.2 - f/u with Nephro 7. Primary lung cancer with metastasis from lung to other site, right (HCC) - ICD9: 162.9, ICD10: C34.91 - f/u with Oncologist Lawrence Dozier DO Return if no improvement. Follow up with Lawrence Dozier DO. Discussed risks, benefits, alternatives, and potential side effects of medications. Patient/Guardian expressed understanding and agreed with the plan. See patient instructions. Lawrence Dozier DO [address] [place] [address] Referring Provider: LAWRENCE DOZIER [[id number]] Allergies As of Date: 05/04/2017 (No Known Allergies) Date Reviewed: 05/04/2017 Reviewed by: Jeanie Jenkins LPN - Fully Assessed Reason for Visit: Follow Up [171] Cmt: 3 months Primary Visit Diagnosis:Essential hypertension with goal blood pressure less than 140/90 [I10] Other Visit Diagnoses:Visit for screening mammogram [Z12.31] Iron deficiency anemia, unspecified iron deficiency anemia type [D50.9] Hypertriglyceridemia [E78.1] Rash and nonspecific skin eruption [R21] Dialysis patient (HCC) [Z99.2] Primary lung cancer with metastasis from lung to other site, right (HCC) [C34.91] Order(s):YISSEL SCREENING [[id number]] Order #: [id number] FUTURE LIPID PANEL BASIC [SQLIPB] Order #: [id number] FUTURE clobetasol (TEMOVATE) 0.05 % creamApply 1 application to affected area twice daily. As needed for rash on armsDisp: 60 gRfl: 3 Prescriptions as of 05/04/2017 Sig: FOLIC ACID 1 MG TABLET Take 1 tablet by mouth once d* STOOL SOFTENER 100 MG CAPSULE TAKE 1 CAPSULE TWICE A DAY AMLODIPINE 10 MG TABLET Take 10 mg by mouth once adolfo* FAMOTIDINE 20 MG TABLET Take 1 tablet by mouth twice * ONDANSETRON HCL 8 MG TABLET Take 1 tablet by mouth every * ERGOCALCIFEROL (VITAMIN D2) O* Take 1 capsule by mouth. Once* LISINOPRIL 20 MG TABLET Take 20 mg by mouth once adolfo* CALCIUM ACETATE 667 MG TABLET Take 667 mg by mouth three ti* VITAMIN B COMPLEX AND VITAMIN* Take 1 capsule by mouth once * ACETAMINOPHEN 325 MG TABLET Take 650 mg by mouth every 6 * CLOBETASOL 0.05 % TOPICAL CRE* Apply 1 application to affect* Problem List As Of Date 05/04/2017 Noted Resolved Obesity [E66.9] INVALID FOR*09/13/2010 Pallor [R23.1] INVALID FOR*07/10/2009 LBP (low back pain) [M54.5] INVALID FOR*10/25/2012 Vomiting [R11.10] INVALID FOR*09/13/2010 Anemia due to blood loss [D50.0] INVALID FOR*12/27/2009 Dyspnea [R06.00] INVALID FOR*08/26/2009 Chest Pain [R07.9] INVALID FOR*08/26/2009 Cervix cancer [C53.9] INVALID FOR*10/25/2012 More... 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 Radiation cystitis [N30.40] INVALID FOR*10/25/2012 S/P ileal conduit [Z93.6] INVALID FOR*10/25/2012 SUMMARY [V999.95] INVALID FOR* Priority: A More... Progressively worsening kidney function [N18.9]INVALID FOR*04/03/2017 Priority: B More... Hx of cervical cancer [Z85.41] INVALID FOR* Priority: E More... H/o Renal cell cancer [C64.9] INVALID FOR* Priority: F More... DVT prophylaxis [[id number]] INVALID FOR*11/02/2012 Priority: L More... DISPOSITION AND FOLLOW-UP [V999.01] INVALID FOR*11/02/2012 Priority: M More... Iron deficiency anemia [D50.9] INVALID FOR* Priority: C More... Euthyroid sick syndrome [E07.81] INVALID FOR* Priority: G More... Osteomyelitis [M86.9] INVALID FOR* Priority: D More... Renal failure [N19] INVALID FOR*04/03/2017 End stage renal disease (HCC) [N18.6] INVALID FOR*04/03/2017 Anemia [D64.9] Primary lung cancer with metastasis from lung t*INVALID FOR*09/22/2016 Right middle lobe pneumonia [J18.1] INVALID FOR* Chronic kidney disease, stage V (HCC) [N18.5] More... Cancer of trachea, bronchus, and lung (HCC) [C3*INVALID FOR* More... 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] INVALID FOR* Dialysis patient (HCC) [Z99.2] INVALID FOR* Essential hypertension with goal blood pressure*INVALID FOR* Primary lung cancer with metastasis from lung t*INVALID FOR* Diastolic dysfunction [I51.9] INVALID FOR* Mitral valve insufficiency [I34.0] INVALID FOR* Rash and nonspecific skin eruption [R21] INVALID FOR* Elevated TSH [R94.6] INVALID FOR* Dyspepsia [R10.13] INVALID FOR* ESRD on hemodialysis (HCC) [N18.6, Z99.2] INVALID FOR*04/03/2017 Prescriptions ordered this encounter Disp Refills Start End CLOBETASOL 0.05 % TOPICAL CREAM 60 g 3 05/04/2017 Route: TOPICAL Sig: Apply 1 application to affected area twice daily. As needed for rash on arms Medications Discontinued During This Encounter triamcinolone acetonide (KENALOG) 0.* 1 lb 1 02/02/2017 05/04/2017 Route: TOPICAL Sig: Apply 1 application to affected area twice daily as needed. For rash, Apply sparingly to area for rash/itching. Disc: Reason for discontinue is not on file. Encounter Status:Closed by LAWRENCE DOZIER DO on 05/04/17 [facility] ABS GR + CBC Collected: 04/30/2017 Status: F Source: [place] 9:22 AM [facility] REPOSITORY TYPE CODE TESTS RESULT OUT OF REFERENCE UNITS RANGE LAB WWBC 3.70-11.00 k/uL Low [place] WBC 3.25 LAB WRBC 3.90-5.20 m/uL Low [facility] RBC 3.62 LAB WHGB 11.5-15.5 g/dL Low [place] Hemoglobin 10.6 LAB WHCT 36.0-46.0 % Low [place] Hematocrit 33.9 LAB WMCV 80.0-100.0 fL [place] MCV 93.6 LAB WMCH 26.0-34.0 pg [place] MCH 29.3 LAB WMCHC 30.5-36.0 g/dL [place] MCHC 31.3 LAB WRDW 11.5-15.0 % [facility] High RDW 17.0 LAB WPLT 150-400 k/uL [place] Platelet Cnt 175 LAB WMPV 9.0-12.7 fL [facility] MPV 9.6 Result Comment: Test performed at: [facility], [address] [place] [address] Rd[address] [place] [address]. LAB ABGRAN 1.45-7.50 k/uL Absol Gran 2.23 Count [facility] Collected: 04/24/2017 Status: F Source: [place] 8:[address] [facility] REPOSITORY TYPE CODE TESTS RESULT OUT OF REFERENCE UNITS RANGE LAB ESTEBAN Ro Test View results in Scanned Documents link when available. Performed By: #### JOSE ALBERTO #### [facility] [address] [place] [address] [facility] ABS GR + CBC Collected: 04/23/2017 Status: F Source: [place] 1:[address] [facility] REPOSITORY TYPE CODE TESTS RESULT OUT OF REFERENCE UNITS RANGE LAB WWBC 3.70-11.00 k/uL [place] WBC 3.85 LAB WRBC 3.90-5.20 m/uL Low [facility] RBC 3.67 LAB WHGB 11.5-15.5 g/dL Low [place] Hemoglobin 10.4 LAB WHCT 36.0-46.0 % Low [place] Hematocrit 34.2 LAB WMCV 80.0-100.0 fL [place] MCV 93.2 LAB WMCH 26.0-34.0 pg [place] MCH 28.3 LAB WMCHC 30.5-36.0 g/dL Low [facility] MCHC 30.4 LAB WRDW 11.5-15.0 % [facility] High RDW 16.3 LAB WPLT 150-400 k/uL [place] Platelet Cnt 179 LAB WMPV 9.0-12.7 fL [place] MPV 9.6 Result Comment: Test performed at: [facility], [address] [place] [address] Rd[address] [place] [address]. LAB ABGRAN 1.45-7.50 k/uL Absol Gran 2.71 Count [facility] ABS GR + CBC Collected: 04/16/2017 Status: F Source: [place] 1:[address] [facility] REPOSITORY TYPE CODE TESTS RESULT OUT OF REFERENCE UNITS RANGE LAB WWBC 3.70-11.00 k/uL [facility] WBC 4.48 LAB WRBC 3.90-5.20 m/uL Low [place] RBC 3.64 LAB WHGB 11.5-15.5 g/dL Low [facility] Hemoglobin 10.5 LAB WHCT 36.0-46.0 % Low [facility] Hematocrit 34.4 LAB WMCV 80.0-100.0 fL [place] MCV 94.5 LAB WMCH 26.0-34.0 pg [place] MCH 28.8 LAB WMCHC 30.5-36.0 g/dL [facility] MCHC 30.5 LAB WRDW 11.5-15.0 % [facility] High RDW 16.7 LAB WPLT 150-400 k/uL [facility] Platelet Cnt 170 LAB WMPV 9.0-12.7 fL Low [facility] MPV 8.9 Result Comment: Test performed at: [facility], [address] [place] [address] Rd[address] [place] [address]. LAB ABGRAN 1.45-7.50 k/uL Absol Gran 3.19 Count HEPATIC FUNCTN PANEL Collected: 04/16/2017 Status: F Source: [place] 1:[address] [facility] REPOSITORY TYPE CODE TESTS RESULT OUT OF REFERENCE UNITS RANGE LAB ALB 3.9-4.9 g/dL Low Albumin 3.7 LAB TBIL 0.2-1.3 mg/dL Bilirubin, Total 0.3 LAB CBIL <0.2 mg/dL Bilirubin,Conjuga <0.2 jp LAB ALKP 32-117 U/L Alkaline Phosphatase 90 LAB AST 13-35 U/L AST 19 LAB ALT 7-38 U/L ALT 11 LAB TP 6.3-8.0 g/dL Protein, High Total 8.1 Performed By: #### HFP #### [facility] [address] [place], [place] [address] PROGRESS Observed: 04/11/2017 Status: COMPLETED Source: [place] 9:[address] [facility] REPOSITORY HNO ID: [id number] Author: Eric Arteaga Service: (none) Author Type: Physician Type: Progress Notes Filed: 04/11/2017 9:27 AM Note Text: Diagnoses: Cervical cancer and RCC. HPI: Underwent a left sided laparoscopic nephrectomy. The pathology demonstrated a T3 (7 cm) clear cell, renal cell carcinoma. Additionally, at the same time patient underwent a laparoscopic, left pelvic, lymph node dissection and right, periaortic, lymph node biopsy with lysis of adhesions. It appeared that the possible pelvic adenopathy visualized on a PET scan may have been due to a left sided hydrosalpinx and possibly enlarged left ovary. A one enlarged retroperitoneal lymph node was visualized, it was removed and it was found not to contain metastatic cancer. Previous therapy: 1. 04/29/2010 - multiple cervical and vaginal biopsies. 2. 08/17/2009 - Laparoscopic left pelvic lymph node dissection and right periaortic lymph node biopsies, lysis of adhesions. one enlarged retroperitoneal lymph node was visualized, it was removed and it was found not to contain metastatic cancer 3. 08/17/2009 - Laparoscopic left radical nephrectomy. The pathology demonstrated a T3 (7 cm) clear cell, renal cell carcinoma. (Dr Ac) 4. Concurrent Cisplatin/RT 09/13/09 - 10/15/09. Total RT dose 4500 cGy in 25 fx. 5. Shaheen template for brachytherapy with Dr. Vasquez, total dose 2250cGy in 5 fractions 10/27/09-10/29/09. 6. 04/29/2010 - Multiple cervical and vaginal biopsies, negative for recurrent disease 7. 06/10/2010 - Exploratory laparotomy, lysis of adhesions, bilateral pelvic lymphadenectomy. This case was done in conjunction with Dr. 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 8. 06/22/2011 - Exam under anesthesia with cystoscopy. This case was done in conjunction with Dr. Ernesto Burton, who performed exam under anesthesia, biopsies, and curettage of the right pubic ramus with irrigation. 9. 09/07/2011 - Total pelvic exenteration with ileal conduit (Dr. Strong), creation of neovagina (Dr. Polanco) and right pubic ramus biopsies (Dr. Burton). 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 All lymph nodes negative. 10. 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 S/P SBRT to RML (50 Gy in 5 fx from 01/18/2015-01/27/2015. 11. Palliative radiation to the trachea and right lung 10/09/16 to 10/30/16. EGD 11/2013: The examined esophagus was normal. The entire examined stomach was normal. Biopsies were taken with a cold forceps for histology. Estimated blood loss was minimal. The examined duodenum was normal. Biopsies were taken with a cold forceps for evaluation of celiac disease. Estimated blood loss was minimal. Impression: - Normal esophagus. - Normal stomach. Biopsied. - Normal examined duodenum. Biopsied. Colonoscopy 11/2013: The colon (entire examined portion) appeared normal. Impression: - The entire examined colon is normal. Recent CT Noncontrast CT scan of the chest demonstrating interval enlargement of a right middle lobe medial irregularly marginated soft tissue mass. There is subpleural fat deposition at the left lung base with 2 small nodules, the more medial slightly increased in size. There are also 2 diaphragmatic pleural-based nodules which may be stable. She had been undergoing dialysis for about a year. She underwent pelvic exoneration. She developed obstructive uropathy leading to end-stage renal disease. I received a brief note from her dial brusher indicating that the patient has been receiving maximum doses of Procrit and she has been running hemoglobin in the 9's. 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 S/P SBRT to RML (50 Gy in 5 fx from 01/18/2015-01/27/2015. Previous therapy: As above. 1) Radiation to trachea and right lung. Current therapy: 1) Taxol. Patient was admitted to [facility] on 02/22/2017 after presenting to the emergency department with a history of ongoing productive cough, congestion as well as increasing shortness of breath, rhinorrhea fever and chills. She had been seen in the ER 1/ and was diagnosed with influenza A. She was discharged home on Tamiflu but her symptoms had worsened particularly the cough and sensation of dyspnea. Blood cultures also that had been drawn on 02/21 started growing gram-positive rods. She was diagnosed with right lower lobe pneumonia. Sputum cultures significant for streptococcal pneumonia. Blood cultures grew Rhizobium radiobacter. She received treatment with Rocephin as an inpatient. On discharge she was placed on Levaquin 250 mg every 48 hours with a stop date of 03/06/2017. Oxygen was stable on room air and she did a walking oxygen test prior to discharge indicating she did not need home oxygen. She received a 2 red blood cell transfusion during her admission for hemoglobin low of 6.4 g/dL. At the time of discharge hemoglobin recovered 8.6 g/dL. Presents for ongoing oncologic management. Interim history: She was scheduled for thoracentesis but ultrasound identified no pleural fluid. She reports that she is gradually feeling better from her recent hospitalization for influenza. She still coughs fairly frequently and is bringing up thick clear sputum. Shortness of breath is stable. That is, she is not short of breath at rest. She is somewhat mildly short of breath with moderate exertion such as walking long distances. Dialysis is going well. She didn't go yesterday but is going today. No hemoptysis. No episode of fever. Appetite normal. PMH, medications and allergies as below personally reviewed by me today. Any changes documented in appropriate section. ROS: Constitutional: Denies episodes of night sweats. Neuro: Denies POND, vertigo and imbalance. HEENT: No recent change in voice, vision or hearing. CVS: Denies exertional chest pain, PND, orthopnea and LE edema. GI: Denies reflux, n/v, change in bowel habits and abdominal pain. No symptoms of stomatitis. : Makes a small amount of urine. Endo: No hot flashes. Derm: No rash. Heme: No unusual bleeding or bruising. Psych: Normal mood. PHYSICAL EXAM: Vitals: Blood pressure 122/53, pulse 86, temperature 36.6 ?C (97.8 ?F), weight 83.7 kg (184 lb 8 oz). Well-appearing and in no acute distress. EYES: Sclerae are anicteric bilaterally. NECK: Supple. LYMPHATIC: There is no palpable cervical, supraclavicular adenopathy. RESPIRATORY: Inspiratory breath sounds are clear and of normal intensity in all guadalupe, but now diminished whole right lung field. CARDIOVASCULAR: Rhythm is regular. ABDOMEN: The abdomen is nondistended. No tenderness. Extremities: Free of edema. SKIN: No jaundice or rash. No petechiae. 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 No focal motor weakness. 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 -ER/KS negative tumor. -She is tolerating single agent Taxol symptomatically very well. -Has required RBC transfusional support. -Chemotherapy options are extremely limited due to hemodialysis and rather significant hematologic toxicity she's been having. Therefore I discussed with her molecular-based profiling in order to allow us the opportunity to determine if there might be other targeted therapies which would be tolerable and perhaps stand some chance of giving her more in the way of progression free survival. -Tumor genomic profiling was discussed. The rationale and timelines were discussed, as well as the potential for clinical benefits (or lack thereof), germline implications, and [id number]-[id number] costs. Written information was also provided. Patient understands and agrees to proceed. We will order tumor specimen testing using next-generation sequencing. -Since she had stable disease other than the potential pleural effusion, I recommended resuming Taxol with dose reduction. Plan: -Paperwork on testing given. -Resume Taxol. -Plan on CT as well as PET scan at next evaluation. Eric Arteaga DO CNOVSP Observed: 04/11/2017 Status: COMPLETED Source: [place] 8:[address] [facility] REPOSITORY Visit (SP) Office ([place]) YUN NELSON ([id number]) 1960 F Date Time Provider Department 04/11/17 8:50 AM ERIC ARTEAGA During your visit today, we recorded the following information about you: Temperature Pulse Blood pressure Weight 97.8 degrees 86/minute 122/53 83.7 kg Tania Acharya VenkataannJESSICA mancuso, YARD SUPERVISOR [employer] 04/11/2017 9:11 AM Signed Est pt. , discuss treatment options. Tania Newman, JESSICA Eric Arteaga, DO 04/11/2017 9:27 AM Signed Diagnoses: Cervical cancer and RCC. HPI: Underwent a left sided laparoscopic nephrectomy. The pathology demonstrated a T3 (7 cm) clear cell, renal cell carcinoma. Additionally, at the same time patient underwent a laparoscopic, left pelvic, lymph node dissection and right, periaortic, lymph node biopsy with lysis of adhesions. It appeared that the possible pelvic adenopathy visualized on a PET scan may have been due to a left sided hydrosalpinx and possibly enlarged left ovary. A one enlarged retroperitoneal lymph node was visualized, it was removed and it was found not to contain metastatic cancer. Previous therapy: 1. 04/29/2010 - multiple cervical and vaginal biopsies. 2. 08/17/2009 - Laparoscopic left pelvic lymph node dissection and right periaortic lymph node biopsies, lysis of adhesions. one enlarged retroperitoneal lymph node was visualized, it was removed and it was found not to contain metastatic cancer 3. 08/17/2009 - Laparoscopic left radical nephrectomy. The pathology demonstrated a T3 (7 cm) clear cell, renal cell carcinoma. (Dr Ac) 4. Concurrent Cisplatin/RT 09/13/09 - 10/15/09. Total RT dose 4500 cGy in 25 fx. 5. Shaheen template for brachytherapy with Dr. Vasquez, total dose 2250cGy in 5 fractions 10/27/09-10/29/09. 6. 04/29/2010 - Multiple cervical and vaginal biopsies, negative for recurrent disease 7. 06/10/2010 - Exploratory laparotomy, lysis of adhesions, bilateral pelvic lymphadenectomy. This case was done in conjunction with Dr. 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 8. 06/22/2011 - Exam under anesthesia with cystoscopy. This case was done in conjunction with Dr. Ernesto Burton, who performed exam under anesthesia, biopsies, and curettage of the right pubic ramus with irrigation. 9. 09/07/2011 - Total pelvic exenteration with ileal conduit (Dr. Strong), creation of neovagina (Dr. Polanco) and right pubic ramus biopsies (Dr. Burton). 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 All lymph nodes negative. 10. 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 S/P SBRT to RML (50 Gy in 5 fx from 01/18/2015-01/27/2015. 11. Palliative radiation to the trachea and right lung 10/09/16 to 10/30/16. EGD 11/2013: The examined esophagus was normal. The entire examined stomach was normal. Biopsies were taken with a cold forceps for histology. Estimated blood loss was minimal. The examined duodenum was normal. Biopsies were taken with a cold forceps for evaluation of celiac disease. Estimated blood loss was minimal. Impression: - Normal esophagus. - Normal stomach. Biopsied. - Normal examined duodenum. Biopsied. Colonoscopy 11/2013: The colon (entire examined portion) appeared normal. Impression: - The entire examined colon is normal. Recent CT Noncontrast CT scan of the chest demonstrating interval enlargement of a right middle lobe medial irregularly marginated soft tissue mass. There is subpleural fat deposition at the left lung base with 2 small nodules, the more medial slightly increased in size. There are also 2 diaphragmatic pleural-based nodules which may be stable. She had been undergoing dialysis for about a year. She underwent pelvic exoneration. She developed obstructive uropathy leading to end-stage renal disease. I received a brief note from her dial brusher indicating that the patient has been receiving maximum doses of Procrit and she has been running hemoglobin in the 9's. 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 S/P SBRT to RML (50 Gy in 5 fx from 01/18/2015-01/27/2015. Previous therapy: As above. 1) Radiation to trachea and right lung. Current therapy: 1) Taxol. Patient was admitted to [facility] on 02/22/2017 after presenting to the emergency department with a history of ongoing productive cough, congestion as well as increasing shortness of breath, rhinorrhea fever and chills. She had been seen in the ER 02/21 and was diagnosed with influenza A. She was discharged home on Tamiflu but her symptoms had worsened particularly the cough and sensation of dyspnea. Blood cultures also that had been drawn on 02/21 started growing gram-positive rods. She was diagnosed with right lower lobe pneumonia. Sputum cultures significant for streptococcal pneumonia. Blood cultures grew Rhizobium radiobacter. She received treatment with Rocephin as an inpatient. On discharge she was placed on Levaquin 250 mg every 48 hours with a stop date of 03/06/2017. Oxygen was stable on room air and she did a walking oxygen test prior to discharge indicating she did not need home oxygen. She received a 2 red blood cell transfusion during her admission for hemoglobin low of 6.4 g/dL. At the time of discharge hemoglobin recovered 8.6 g/dL. Presents for ongoing oncologic management. Interim history: She was scheduled for thoracentesis but ultrasound identified no pleural fluid. She reports that she is gradually feeling better from her recent hospitalization for influenza. She still coughs fairly frequently and is bringing up thick clear sputum. Shortness of breath is stable. That is, she is not short of breath at rest. She is somewhat mildly short of breath with moderate exertion such as walking long distances. Dialysis is going well. She didn't go yesterday but is going today. No hemoptysis. No episode of fever. Appetite normal. PMH, medications and allergies as below personally reviewed by me today. Any changes documented in appropriate section. ROS: Constitutional: Denies episodes of night sweats. Neuro: Denies POND, vertigo and imbalance. HEENT: No recent change in voice, vision or hearing. CVS: Denies exertional chest pain, PND, orthopnea and LE edema. GI: Denies reflux, n/v, change in bowel habits and abdominal pain. No symptoms of stomatitis. : Makes a small amount of urine. Endo: No hot flashes. Derm: No rash. Heme: No unusual bleeding or bruising. Psych: Normal mood. PHYSICAL EXAM: Vitals: Blood pressure 122/53, pulse 86, temperature 36.6 ?C (97.8 ?F), weight 83.7 kg (184 lb 8 oz). Well-appearing and in no acute distress. EYES: Sclerae are anicteric bilaterally. NECK: Supple. LYMPHATIC: There is no palpable cervical, supraclavicular adenopathy. RESPIRATORY: Inspiratory breath sounds are clear and of normal intensity in all guadalupe, but now diminished whole right lung field. CARDIOVASCULAR: Rhythm is regular. ABDOMEN: The abdomen is nondistended. No tenderness. Extremities: Free of edema. SKIN: No jaundice or rash. No petechiae. 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 No focal motor weakness. 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 -ER/KS negative tumor. -She is tolerating single agent Taxol symptomatically very well. -Has required RBC transfusional support. -Chemotherapy options are extremely limited due to hemodialysis and rather significant hematologic toxicity she's been having. Therefore I discussed with her molecular-based profiling in order to allow us the opportunity to determine if there might be other targeted therapies which would be tolerable and perhaps stand some chance of giving her more in the way of progression free survival. -Tumor genomic profiling was discussed. The rationale and timelines were discussed, as well as the potential for clinical benefits (or lack thereof), germline implications, and [id number] costs. Written information was also provided. Patient understands and agrees to proceed. We will order tumor specimen testing using next-generation sequencing. -Since she had stable disease other than the potential pleural effusion, I recommended resuming Taxol with dose reduction. Plan: -Paperwork on testing given. -Resume Taxol. -Plan on CT as well as PET scan at next evaluation. Eric Arteaga DO Referring Provider: ERIC ARTEAGA [[id number]] Allergies As of Date: 04/11/2017 (No Known Allergies) Date Reviewed: 04/11/2017 Reviewed by: Tania Acharya (Jessica) JESSICA Newman - Fully Assessed Reason for Visit: Established Patient [175] Primary Visit Diagnosis:Cancer of trachea, bronchus, and lung (HCC) [C33, C34.80] Follow-up and Disposition History Recorded Prescriptions as of 04/11/2017 Sig: AMLODIPINE 10 MG TABLET Take 10 mg by mouth once adolfo* FOLIC ACID 1 MG TABLET TAKE 1 TABLET DAILY FAMOTIDINE 20 MG TABLET Take 1 tablet by mouth twice * TRIAMCINOLONE ACETONIDE 0.1 %* Apply 1 application to affect* ONDANSETRON HCL 8 MG TABLET Take 1 tablet by mouth every * ERGOCALCIFEROL (VITAMIN D2) O* Take 1 capsule by mouth. Once* DOC-Q-LACE 100 MG CAPSULE TAKE 1 CAPSULE TWICE A DAY LISINOPRIL 20 MG TABLET Take 20 mg by mouth once adolfo* CALCIUM ACETATE 667 MG TABLET Take 667 mg by mouth three ti* VITAMIN B COMPLEX AND VITAMIN* Take 1 capsule by mouth once * ACETAMINOPHEN 325 MG TABLET Take 650 mg by mouth every 6 * Problem List As Of Date 04/11/2017 Noted Resolved Obesity [E66.9] INVALID FOR*09/13/2010 Pallor [R23.1] INVALID FOR*07/10/2009 LBP (low back pain) [M54.5] INVALID FOR*10/25/2012 Vomiting [R11.10] INVALID FOR*09/13/2010 Anemia due to blood loss [D50.0] INVALID FOR*12/27/2009 Dyspnea [R06.00] INVALID FOR*08/26/2009 Chest Pain [R07.9] INVALID FOR*08/26/2009 Cervix cancer [C53.9] INVALID FOR*10/25/2012 More... 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 Radiation cystitis [N30.40] INVALID FOR*10/25/2012 S/P ileal conduit [Z93.6] INVALID FOR*10/25/2012 SUMMARY [V999.95] INVALID FOR* Priority: A More... Progressively worsening kidney function [N18.9]INVALID FOR*04/03/2017 Priority: B More... Hx of cervical cancer [Z85.41] INVALID FOR* Priority: E More... H/o Renal cell cancer [C64.9] INVALID FOR* Priority: F More... DVT prophylaxis [[id number]] INVALID FOR*11/02/2012 Priority: L More... DISPOSITION AND FOLLOW-UP [V999.01] INVALID FOR*11/02/2012 Priority: M More... Iron deficiency anemia [D50.9] INVALID FOR* Priority: C More... Euthyroid sick syndrome [E07.81] INVALID FOR* Priority: G More... Osteomyelitis [M86.9] INVALID FOR* Priority: D More... Renal failure [N19] INVALID FOR*04/03/2017 End stage renal disease (HCC) [N18.6] INVALID FOR*04/03/2017 Anemia [D64.9] Primary lung cancer with metastasis from lung t*INVALID FOR*09/22/2016 Right middle lobe pneumonia [J18.1] INVALID FOR* Chronic kidney disease, stage V (HCC) [N18.5] More... Cancer of trachea, bronchus, and lung (HCC) [C3*INVALID FOR* More... 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 , discuss treatment options. Tania Newman LPN Encounter Status:Closed by ERIC ARTEAGA DO on 04/11/17 CNPN Observed: 04/06/2017 Status: COMPLETED Source: [place] 12:[address] [facility] REPOSITORY Telephone (SAL[place]AT[place]) YUN NELSON ([id number]) 1960 F Date Time Provider Department 04/06/17 ERIC ARTEAGA During your visit today, we recorded the following information about you: Eric Arteaga DO 04/06/2017 8:37 AM Signed Can let her know that I get the report of the ultrasound that showed no fluid around the lung. I would like to see her for an office visit sometime next week to discuss changing treatment. go ahead and cancel April office visit and subsequent Taxol treatments. DO Ydaira Meredith Psr 04/06/2017 9:06 AM Signed Patient's current chemo appointments have been canceled and an appointment has been made for next week 04/11/17 with to discuss treatment options, patient confirmed this date and time. Yadira Schwarzcally Psr Allergies As of Date: 04/06/2017 (No Known Allergies) Date Reviewed: 04/03/2017 Reviewed by: Ricky Friend LPN - Fully Assessed Reason for Visit: Results [95] Prescriptions as of 04/06/2017 Sig: AMLODIPINE 10 MG TABLET Take 10 mg by mouth once adolfo* FOLIC ACID 1 MG TABLET TAKE 1 TABLET DAILY FAMOTIDINE 20 MG TABLET Take 1 tablet by mouth twice * TRIAMCINOLONE ACETONIDE 0.1 %* Apply 1 application to affect* ONDANSETRON HCL 8 MG TABLET Take 1 tablet by mouth every * ERGOCALCIFEROL (VITAMIN D2) O* Take 1 capsule by mouth. Once* DOC-Q-LACE 100 MG CAPSULE TAKE 1 CAPSULE TWICE A DAY LISINOPRIL 20 MG TABLET Take 20 mg by mouth once adolfo* CALCIUM ACETATE 667 MG TABLET Take 667 mg by mouth three ti* VITAMIN B COMPLEX AND VITAMIN* Take 1 capsule by mouth once * ACETAMINOPHEN 325 MG TABLET Take 650 mg by mouth every 6 * Problem List As Of Date 04/06/2017 Noted Resolved Obesity [E66.9] INVALID FOR*09/13/2010 Pallor [R23.1] INVALID FOR*07/10/2009 LBP (low back pain) [M54.5] INVALID FOR*10/25/2012 Vomiting [R11.10] INVALID FOR*09/13/2010 Anemia due to blood loss [D50.0] INVALID FOR*12/27/2009 Dyspnea [R06.00] INVALID FOR*08/26/2009 Chest Pain [R07.9] INVALID FOR*08/26/2009 Cervix cancer [C53.9] INVALID FOR*10/25/2012 More... 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 Radiation cystitis [N30.40] INVALID FOR*10/25/2012 S/P ileal conduit [Z93.6] INVALID FOR*10/25/2012 SUMMARY [V999.95] INVALID FOR* Priority: A More... Progressively worsening kidney function [N18.9]INVALID FOR*04/03/2017 Priority: B More... Hx of cervical cancer [Z85.41] INVALID FOR* Priority: E More... H/o Renal cell cancer [C64.9] INVALID FOR* Priority: F More... DVT prophylaxis [[id number]] INVALID FOR*11/02/2012 Priority: L More... DISPOSITION AND FOLLOW-UP [V999.01] INVALID FOR*11/02/2012 Priority: M More... Iron deficiency anemia [D50.9] INVALID FOR* Priority: C More... Euthyroid sick syndrome [E07.81] INVALID FOR* Priority: G More... Osteomyelitis [M86.9] INVALID FOR* Priority: D More... Renal failure [N19] INVALID FOR*04/03/2017 End stage renal disease (HCC) [N18.6] INVALID FOR*04/03/2017 Anemia [D64.9] Primary lung cancer with metastasis from lung t*INVALID FOR*09/22/2016 Right middle lobe pneumonia [J18.1] INVALID FOR* Chronic kidney disease, stage V (HCC) [N18.5] More... Cancer of trachea, bronchus, and lung (HCC) [C3*INVALID FOR* More... 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] INVALID FOR* Dialysis patient (HCC) [Z99.2] INVALID FOR* Essential hypertension with goal blood pressure*INVALID FOR* Primary lung cancer with metastasis from lung t*INVALID FOR* Diastolic dysfunction [I51.9] INVALID FOR* Mitral valve insufficiency [I34.0] INVALID FOR* Rash and nonspecific skin eruption [R21] INVALID FOR* Elevated TSH [R94.6] INVALID FOR* Dyspepsia [R10.13] INVALID FOR* ESRD on hemodialysis (HCC) [N18.6, Z99.2] INVALID FOR*04/03/2017 Encounter Status:Closed by YADIRA CHERRY on 04/06/17 CHEST Observed: 04/04/2017 Status: F Source: [place] 7:54 AM [facility] REPOSITORY [facility] Imaging Services [address] [place] [id number] Chest MR#: [id number] Acct: [id number] Name: YUN NELSON Rep #: [id number] : 1960 F 56 From: Jose De Jesus Collado MD PCP: Lawrence Dozier DO Status: REG CLI Study: Chest Date of Exam: 04/04/17 Exam# [id number] Ordering Dr: Eric Arteaga DO STUDY: SUPERFICIAL ULTRASOUND - PLEURAL SPACES. REASON FOR EXAM: Female, 56 years old. Possible pleural effusion. TECHNIQUE: A superficial ultrasound was performed with real- time and static mariscal-scale imaging. COMPARISON: None. FINDINGS: The right and left pleural spaces were examined by ultrasound. There is no evidence of pleural effusion. US/Chest IMPRESSION: No evidence of pleural effusion. Electronically Signed: Jose De Jesus Collado MD at 12:03 EST Tel [phone], Service support , CC: Lawrence Dozier DO; Eric Arteaga DO Solar Maintenance Technician: Signed PROGRESS Observed: 04/03/2017 Status: COMPLETED Source: [place] 2:14 PM [facility] REPOSITORY HNO ID: [id number] Author: Apolonia Ferguson (Germán) GERMÁN [place] Service: (none) Author Type: Nurse Practitioner Type: Progress Notes Filed: 04/03/2017 2:33 PM Note Text: HPI/CC: Yun Nelson is a 56 year old female who presents for Hospital F/U [facility] dx: pneumonia, flu. Overall feeling better, still with cough and fatigue. Was transfused for low H/H during hospital stay for anemia. Denies CP, SOB, dizziness, lightheadedness, weakness. Dialysis T,Th, Sat Chemo will restart in April. Will have a procedure tomorrow at [facility] to remove fluid around lung. ROS as above, otherwise non-contributory. Reviewed PMHx, PSHx, social Hx, medications and allergies. PHYSICAL EXAMINATION: BP 128/72 Pulse 88 Resp 16 Wt 83 kg (183 lb) SpO2 99% BMI 33.47 kg/m2 General appearance: Well appearing, alert, in no acute distress, well-hydrated, well nourished., Overweight Skin: Skin color, texture, turgor normal, no suspicious rashes or lesions Lungs: Lungs clear to auscultation. No wheezing, rhonchi, rales, dry cough. Heart: RRR without murmur, gallop, or rubs. No ectopy ASSESSMENT/PLAN: 1. Pneumonia due to influenza A virus, unspecified laterality, unspecified part of lung - ICD9: 487.0, ICD10: J09.X1 (primary diagnosis) 2. Dialysis patient (HCC) - ICD9: V45.11, ICD10: Z99.2 - continue treatment as before - stable Apolonia Hatfield CNP PROTIME Collected: 04/02/2017 Status: F Source: [place] 9:[address] [facility] REPOSITORY TYPE CODE TESTS RESULT OUT OF REFERENCE UNITS RANGE LAB PSEC 9.7-13.0 sec Test PT sent to [facility]. Result Comment: Account Credited HIDE LAB INR 0.9-1.3 Test sent to PT INR [facility]. Result Comment: Account Credited HIDE APTT Collected: 04/02/2017 Status: F Source: [place] 9:[address] [facility] REPOSITORY TYPE CODE TESTS RESULT OUT OF REFERENCE UNITS RANGE LAB APTT 23.0-32.4 sec Test APTT sent to [facility]. Result Comment: Account Credited HIDE PROTHROMBIN TIME W/INR Collected: 04/02/2017 Status: F Source: [place] 9:45 AM [facility] REPOSITORY TYPE CODE TESTS RESULT OUT OF RANGE REFERENCE UNITS LAB L300.4150 11.7-14.9 SECONDS Normal PROTIME 13.7 LAB L300.4200 Normal INR 1.1 Performed By: #### L300.3900, L300.4310 #### [facility] [address] [place], [place], [address] PARTIAL THROMBOPLAST Collected: 04/02/2017 Status: F Source: [facility] 9:45 AM [facility] REPOSITORY TYPE CODE TESTS RESULT OUT OF RANGE REFERENCE UNITS LAB L300.4310 24.1-36.2 Seconds Normal PTT 34.9 Performed By: #### L300.3900, L300.4310 #### [facility] [address] [place], [address] SURGICAL PATHOLOGY Observed: 03/29/2017 Status: F Source: [place] 5:[address] [facility] REPOSITORY PROCEDURE REPORT Specimen originated from [facility] Specimen #: [id number] Submitting Physician: ERIC ARTEAGA M.D. ([id number]) SPECIMEN SUBMITTED A: 1 CCF BLOCK ([id number]) PROCEDURE(S) MMR STATUS Date Ordered: 03/29/2017 Date Reported: 03/30/2017 Procedure Results and Interpretation Immunohistochemistry (IHC) for mismatch repair proteins (MMR) in endometrial carcinoma Final Diagnosis: Mismatch repair proteins (MLH1, PMS2, MSH2, and MSH6) are expressed in carcinoma nuclei IHC Results (expressed, not expressed or partial loss of expression) PMS2 expressed MLH1 expressed MSH6 expressed MSH2 expressed IHC for MMR proteins was performed on tissue block CCF [id number] A1 with appropriate controls. Immunohistochemistry (IHC) testing is one of the standard tests completed on all endometrial carcinomas at [facility]. IHC stains for MMR proteins were performed to assist in screening for HNPCC (Rosen Syndrome). MMR proteins function as heterodimers with the association of MLHI with PMS2 and the association of MSH2 with MSH6. These binding partnerships stabilize MMR proteins. Immunohistochemical screen for the detection of MMR proteins is a cost-effective screen for Rosen syndrome in at least 95% of cases. As clinically indicated, and in the appropriate setting of genetic counseling with informed patient consent, further molecular genetic testing may be needed. For more information, please call the [facility] Center for Personalized [employer] at . References: 1. Dede Barnhart, et al. Immunohistochemistry versus microsatellite instability testing for screening colorectal cancer patients at risk for hereditary nonpolyposis colorectal cancer syndrome. Am J Surg Pathol 2009, 33:1639-45 2. Jennifer Barnhart, et al. Implementation of tumor testing for rosen syndrome in endometrial cancers at a large [facility]. Gynecol Oncol. 2013, 130(1):121-6 3. Ivan JS, et al. Testing women with endometrial cancer to detect Rosen syndrome. J Clin Oncol. 2011, 29:2247 Laboratory Developed Test (LDT) Disclaimer: Positive and negative controls stain appropriately. Performance characteristics of immunohistochemical, immunofluorescent and chromogenic in-situ hybridization tests have been determined by [facility]'s [facility] [place] ([facility]) in a manner consistent with CLIA requirements. One or more of these tests have not been cleared or approved by the FDA. [facility] is regulated under CLIA as qualified to perform high-complexity testing. These tests are used for clinical purposes. They should not be regarded as investigational or for research. Procedure Pathologist: Jovany Lang M.D. Electronic Signature CLINICAL DATA None provided. Date of Report: Date of Procedure: 03/29/2017 Date of Receipt: 03/29/2017 Submitted: ERIC ARTEAGA M.D. ([id number]) Location: PULMONARY MAIN Diagnostic interpretation performed at [facility], [address] [facility] [address]. PROGRESS Observed: 03/28/2017 Status: COMPLETED Source: [place] 9:[address] [facility] REPOSITORY HNO ID: [id number] Author: Eric Arteaga Service: (none) Author Type: Physician Type: Progress Notes Filed: 03/28/2017 10:57 AM Note Text: Diagnoses: Cervical cancer and RCC. HPI: Underwent a left sided laparoscopic nephrectomy. The pathology demonstrated a T3 (7 cm) clear cell, renal cell carcinoma. Additionally, at the same time patient underwent a laparoscopic, left pelvic, lymph node dissection and right, periaortic, lymph node biopsy with lysis of adhesions. It appeared that the possible pelvic adenopathy visualized on a PET scan may have been due to a left sided hydrosalpinx and possibly enlarged left ovary. A one enlarged retroperitoneal lymph node was visualized, it was removed and it was found not to contain metastatic cancer. Previous therapy: 1. 04/29/2010 - multiple cervical and vaginal biopsies. 2. 08/17/2009 - Laparoscopic left pelvic lymph node dissection and right periaortic lymph node biopsies, lysis of adhesions. one enlarged retroperitoneal lymph node was visualized, it was removed and it was found not to contain metastatic cancer 3. 08/17/2009 - Laparoscopic left radical nephrectomy. The pathology demonstrated a T3 (7 cm) clear cell, renal cell carcinoma. (Dr Ac) 4. Concurrent Cisplatin/RT 09/13/09 - 10/15/09. Total RT dose 4500 cGy in 25 fx. 5. Shaheen template for brachytherapy with Dr. Vasquez, total dose 2250cGy in 5 fractions 10/27/09-10/29/09. 6. 04/29/2010 - Multiple cervical and vaginal biopsies, negative for recurrent disease 7. 06/10/2010 - Exploratory laparotomy, lysis of adhesions, bilateral pelvic lymphadenectomy. This case was done in conjunction with Dr. 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 8. 06/22/2011 - Exam under anesthesia with cystoscopy. This case was done in conjunction with Dr. Ernesto Burton, who performed exam under anesthesia, biopsies, and curettage of the right pubic ramus with irrigation. 9. 09/07/2011 - Total pelvic exenteration with ileal conduit (Dr. Strong), creation of neovagina (Dr. Polanco) and right pubic ramus biopsies (Dr. Burton). 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 All lymph nodes negative. 10. 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 S/P SBRT to RML (50 Gy in 5 fx from 01/18/2015-01/27/2015. 11. Palliative radiation to the trachea and right lung 10/09/16 to 10/30/16. EGD 11/2013: The examined esophagus was normal. The entire examined stomach was normal. Biopsies were taken with a cold forceps for histology. Estimated blood loss was minimal. The examined duodenum was normal. Biopsies were taken with a cold forceps for evaluation of celiac disease. Estimated blood loss was minimal. Impression: - Normal esophagus. - Normal stomach. Biopsied. - Normal examined duodenum. Biopsied. Colonoscopy 11/2013: The colon (entire examined portion) appeared normal. Impression: - The entire examined colon is normal. Recent CT Noncontrast CT scan of the chest demonstrating interval enlargement of a right middle lobe medial irregularly marginated soft tissue mass. There is subpleural fat deposition at the left lung base with 2 small nodules, the more medial slightly increased in size. There are also 2 diaphragmatic pleural-based nodules which may be stable. She had been undergoing dialysis for about a year. She underwent pelvic exoneration. She developed obstructive uropathy leading to end-stage renal disease. I received a brief note from her dial brusher indicating that the patient has been receiving maximum doses of Procrit and she has been running hemoglobin in the 9's. 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 S/P SBRT to RML (50 Gy in 5 fx from 01/18/2015-01/27/2015. Previous therapy: As above. 1) Radiation to trachea and right lung. Current therapy: 1) Taxol. Patient was admitted to [facility] on 02/22/2017 after presenting to the emergency department with a history of ongoing productive cough, congestion as well as increasing shortness of breath, rhinorrhea fever and chills. She had been seen in the ER 02/21 and was diagnosed with influenza A. She was discharged home on Tamiflu but her symptoms had worsened particularly the cough and sensation of dyspnea. Blood cultures also that had been drawn on 02/21 started growing gram-positive rods. She was diagnosed with right lower lobe pneumonia. Sputum cultures significant for streptococcal pneumonia. Blood cultures grew Rhizobium radiobacter. She received treatment with Rocephin as an inpatient. On discharge she was placed on Levaquin 250 mg every 48 hours with a stop date of 03/06/2017. Oxygen was stable on room air and she did a walking oxygen test prior to discharge indicating she did not need home oxygen. She received a 2 red blood cell transfusion during her admission for hemoglobin low of 6.4 g/dL. At the time of discharge hemoglobin recovered 8.6 g/dL. Presents for ongoing oncologic management. Interim history: She is completed her course of antibodies. She's had no recurrence of fever. She still does quite a bit of coughing throughout the day and it's occasionally productive of clear sputum. She feels that her shortness breath is stable to improved. No chest pain, pressure or tightness. No palpitations or wheezing. She's had no nausea or vomiting. Dialysis is going well. PMH, medications and allergies as below personally reviewed by me today. Any changes documented in appropriate section. ROS: Constitutional: Denies episodes of night sweats. Neuro: Denies POND, vertigo and imbalance. HEENT: No recent change in voice, vision or hearing. CVS: Denies exertional chest pain, PND, orthopnea and LE edema. GI: Denies reflux, n/v, change in bowel habits and abdominal pain. No symptoms of stomatitis. : Makes a small amount of urine. Endo: No hot flashes. Derm: No rash. Heme: No unusual bleeding or bruising. Psych: Normal mood. PHYSICAL EXAM: Vitals: Blood pressure 132/59, pulse 95, temperature 36.7 ?C (98.1 ?F), temperature source Oral, weight 83.9 kg (185 lb). Well-appearing and in no acute distress. EYES: Sclerae are anicteric bilaterally. NECK: Supple. LYMPHATIC: There is no palpable cervical, supraclavicular adenopathy. RESPIRATORY: Inspiratory breath sounds are clear and of normal intensity in all guadalupe, but diminished right base. CARDIOVASCULAR: Rhythm is regular. ABDOMEN: The abdomen is nondistended. No tenderness. Extremities: Free of edema. SKIN: No jaundice or rash. No petechiae. 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 No focal motor weakness. 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 -ER/KS negative tumor. -She is tolerating single agent Taxol symptomatically very well. -Has required RBC transfusional support. -I personally reviewed CT images and again with patient and independently verified and agreed with the radiologist's findings. SD, but new right effusion. -Discussed need/indication for thoracentesis with cytology. If negative can consider continuing paclitaxel at dose reduction. Plan: -Cancel upcoming cycle of therapy.ntinue paclitaxel on a day 1, 8 and 15 schedule with cycles every 28 days. -To continue parenteral iron as well as GREG therapy at dialysis. -Request sent to pathology for MMR IHC testing. DO VAISHNAVI Meredith ABS GR + CBC Collected: 03/28/2017 Status: F Source: [place] 8:44 AM [facility] REPOSITORY TYPE CODE TESTS RESULT OUT OF REFERENCE UNITS RANGE LAB WWBC 3.70-11.00 k/uL [place] WBC 5.37 LAB WRBC 3.90-5.20 m/uL Low [facility] RBC 3.38 LAB WHGB 11.5-15.5 g/dL Low [place] Hemoglobin 9.9 LAB WHCT 36.0-46.0 % Low [facility] Hematocrit 33.2 LAB WMCV 80.0-100.0 fL [facility] MCV 98.2 LAB WMCH 26.0-34.0 pg [facility] MCH 29.3 LAB WMCHC 30.5-36.0 g/dL Low [facility] MCHC 29.8 Result Comment: Result rechecked. LAB WRDW 11.5-15.0 % High [place] RDW 16.7 LAB WPLT 150-400 k/uL [place] 222 Platelet Cnt LAB WMPV 9.0-12.7 fL Low [facility] MPV 8.8 Result Comment: Test performed at: [facility] [place], [address] [place] [address]. LAB ABGRAN 1.45-7.50 k/uL Absol Gran 3.88 Count VAISHNAVI ISTAT BMP Collected: 03/28/2017 Status: F Source: [place] 8:44 AM [facility] [place] REPOSITORY TYPE CODE TESTS RESULT OUT OF REFERENCE UNITS RANGE LAB NAWB 132-148 mmol/L Sodium, Whole 142 Bld LAB K1WB 3.5-5.0 mmol/L Potassium,Who 4.8 le Bld LAB CLWB 98-110 mmol/L Low Chloride, 96 Whole Bld LAB ICAWB 1.08-1.30 mmol/L Ionized 1.17 Calcium, WB Result Comment: Please note: This value represents ionized calcium not total calcium. LAB CO2WB 23-32 mmol/L High TCO2, Whole 34 Blood LAB GLUWB 65-100 mg/dL High Glucose, 112 Whole Bld LAB BUNWB 8-25 mg/dL High BUN, Whole 29 Blood LAB BCRET 0.70-1.40 mg/dL High Creatinine,Wh 6.10 ole Bld LAB AGAPWB 0-15 mmol/L Anion Gap, 12 Whole Bld LAB GFRAA eGFR- 9 Amer. LAB GFRNAA . eGFR-All 7 Other Races Result Comment: eGFR (Estimated GFR) Units of measure: mL/min/1.73 meters squared eGFR is derived from the reexpressed MDRD Study equation using the following parameters: serum creatinine, age, gender and race. The creatinine assay has been calibrated to be traceable to IDMS. An eGFR <60 mL/min/1.73m2 for >3 months is consistent with chronic kidney disease. Refer to KDOQI guidelines for clinical interpretation. In patients with unstable renal function, e.g. those with acute kidney injury, the eGFR may not accurately reflect actual GFR. HEPATIC FUNCTN PANEL Collected: 03/28/2017 Status: F Source: [place] 8:[address] [facility] REPOSITORY TYPE CODE TESTS RESULT OUT OF REFERENCE UNITS RANGE LAB ALB 3.9-4.9 g/dL Low Albumin 3.6 LAB TBIL 0.2-1.3 mg/dL Bilirubin, Total 0.3 LAB CBIL <0.2 mg/dL Bilirubin,Conjuga <0.2 jp LAB ALKP 32-117 U/L Alkaline Phosphatase 89 LAB AST 13-35 U/L AST 18 LAB ALT 7-38 U/L ALT 8 LAB TP 6.3-8.0 g/dL Protein, Total 7.8 Performed By: #### HFP #### [facility] [address] [place], [place] [address] CNOVSP Observed: 03/28/2017 Status: COMPLETED Source: [place] 8:[address] [facility] REPOSITORY Visit (SP) Office (HEMRADHA) YUN NELSON ([id number]) 1960 F Date Time Provider Department 03/28/17 8:30 AM ERIC ARTEAGA During your visit today, we recorded the following information about you: Temperature Pulse Blood pressure Weight 98.1 degrees 95/minute 132/59 83.9 kg Eric Arteaga DO 03/28/2017 10:57 AM Signed Diagnoses: Cervical cancer and RCC. HPI: Underwent a left sided laparoscopic nephrectomy. The pathology demonstrated a T3 (7 cm) clear cell, renal cell carcinoma. Additionally, at the same time patient underwent a laparoscopic, left pelvic, lymph node dissection and right, periaortic, lymph node biopsy with lysis of adhesions. It appeared that the possible pelvic adenopathy visualized on a PET scan may have been due to a left sided hydrosalpinx and possibly enlarged left ovary. A one enlarged retroperitoneal lymph node was visualized, it was removed and it was found not to contain metastatic cancer. Previous therapy: 1. 04/29/2010 - multiple cervical and vaginal biopsies. 2. 08/17/2009 - Laparoscopic left pelvic lymph node dissection and right periaortic lymph node biopsies, lysis of adhesions. one enlarged retroperitoneal lymph node was visualized, it was removed and it was found not to contain metastatic cancer 3. 08/17/2009 - Laparoscopic left radical nephrectomy. The pathology demonstrated a T3 (7 cm) clear cell, renal cell carcinoma. (Dr Ac) 4. Concurrent Cisplatin/RT 09/13/09 - 10/15/09. Total RT dose 4500 cGy in 25 fx. 5. Shaheen template for brachytherapy with Dr. Vasquez, total dose 2250cGy in 5 fractions 10/27/09-10/29/09. 6. 04/29/2010 - Multiple cervical and vaginal biopsies, negative for recurrent disease 7. 06/10/2010 - Exploratory laparotomy, lysis of adhesions, bilateral pelvic lymphadenectomy. This case was done in conjunction with Dr. 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 8. 06/22/2011 - Exam under anesthesia with cystoscopy. This case was done in conjunction with Dr. Ernesto Burton, who performed exam under anesthesia, biopsies, and curettage of the right pubic ramus with irrigation. 9. 09/07/2011 - Total pelvic exenteration with ileal conduit (Dr. Strong), creation of neovagina (Dr. Polanco) and right pubic ramus biopsies (Dr. Burton). 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 All lymph nodes negative. 10. 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 S/P SBRT to RML (50 Gy in 5 fx from 01/18/2015-01/27/2015. 11. Palliative radiation to the trachea and right lung 10/09/16 to 10/30/16. EGD 11/2013: The examined esophagus was normal. The entire examined stomach was normal. Biopsies were taken with a cold forceps for histology. Estimated blood loss was minimal. The examined duodenum was normal. Biopsies were taken with a cold forceps for evaluation of celiac disease. Estimated blood loss was minimal. Impression: - Normal esophagus. - Normal stomach. Biopsied. - Normal examined duodenum. Biopsied. Colonoscopy 11/2013: The colon (entire examined portion) appeared normal. Impression: - The entire examined colon is normal. Recent CT Noncontrast CT scan of the chest demonstrating interval enlargement of a right middle lobe medial irregularly marginated soft tissue mass. There is subpleural fat deposition at the left lung base with 2 small nodules, the more medial slightly increased in size. There are also 2 diaphragmatic pleural-based nodules which may be stable. She had been undergoing dialysis for about a year. She underwent pelvic exoneration. She developed obstructive uropathy leading to end-stage renal disease. I received a brief note from her dial brusher indicating that the patient has been receiving maximum doses of Procrit and she has been running hemoglobin in the 's. 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 S/P SBRT to RML (50 Gy in 5 fx from 01/18/2015-01/27/2015. Previous therapy: As above. 1) Radiation to trachea and right lung. Current therapy: 1) Taxol. Patient was admitted to [facility] on 02/22/2017 after presenting to the emergency department with a history of ongoing productive cough, congestion as well as increasing shortness of breath, rhinorrhea fever and chills. She had been seen in the ER 02/21 and was diagnosed with influenza A. She was discharged home on Tamiflu but her symptoms had worsened particularly the cough and sensation of dyspnea. Blood cultures also that had been drawn on 02/21 started growing gram-positive rods. She was diagnosed with right lower lobe pneumonia. Sputum cultures significant for streptococcal pneumonia. Blood cultures grew Rhizobium radiobacter. She received treatment with Rocephin as an inpatient. On discharge she was placed on Levaquin 250 mg every 48 hours with a stop date of 03/06/2017. Oxygen was stable on room air and she did a walking oxygen test prior to discharge indicating she did not need home oxygen. She received a 2 red blood cell transfusion during her admission for hemoglobin low of 6.4 g/dL. At the time of discharge hemoglobin recovered 8.6 g/dL. Presents for ongoing oncologic management. Interim history: She is completed her course of antibodies. She's had no recurrence of fever. She still does quite a bit of coughing throughout the day and it's occasionally productive of clear sputum. She feels that her shortness breath is stable to improved. No chest pain, pressure or tightness. No palpitations or wheezing. She's had no nausea or vomiting. Dialysis is going well. PMH, medications and allergies as below personally reviewed by me today. Any changes documented in appropriate section. ROS: Constitutional: Denies episodes of night sweats. Neuro: Denies POND, vertigo and imbalance. HEENT: No recent change in voice, vision or hearing. CVS: Denies exertional chest pain, PND, orthopnea and LE edema. GI: Denies reflux, n/v, change in bowel habits and abdominal pain. No symptoms of stomatitis. : Makes a small amount of urine. Endo: No hot flashes. Derm: No rash. Heme: No unusual bleeding or bruising. Psych: Normal mood. PHYSICAL EXAM: Vitals: Blood pressure 132/59, pulse 95, temperature 36.7 ?C (98.1 ?F), temperature source Oral, weight 83.9 kg (185 lb). Well-appearing and in no acute distress. EYES: Sclerae are anicteric bilaterally. NECK: Supple. LYMPHATIC: There is no palpable cervical, supraclavicular adenopathy. RESPIRATORY: Inspiratory breath sounds are clear and of normal intensity in all guadalupe, but diminished right base. CARDIOVASCULAR: Rhythm is regular. ABDOMEN: The abdomen is nondistended. No tenderness. Extremities: Free of edema. SKIN: No jaundice or rash. No petechiae. 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 No focal motor weakness. 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 -ER/KS negative tumor. -She is tolerating single agent Taxol symptomatically very well. -Has required RBC transfusional support. -I personally reviewed CT images and again with patient and independently verified and agreed with the radiologist's findings. SD, but new right effusion. -Discussed need/indication for thoracentesis with cytology. If negative can consider continuing paclitaxel at dose reduction. Plan: -Cancel upcoming cycle of therapy.ntinue paclitaxel on a day 1, 8 and 15 schedule with cycles every 28 days. -To continue parenteral iron as well as GREG therapy at dialysis. -Request sent to pathology for MMR IHC testing. Eric Arteaga DO Referring Provider: ERIC ARTEAGA [[id number]] Allergies As of Date: 03/28/2017 (No Known Allergies) Date Reviewed: 03/28/2017 Reviewed by: Eric Arteaga - Fully Assessed Reason for Visit: Established Patient [175] Primary Visit Diagnosis: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] Other Visit Diagnoses:Malignant neoplasm metastatic to right lung (HCC) [C78.01] Pleural effusion [J90] Follow-up and Disposition History Recorded Prescriptions as of 03/28/2017 Sig: AMLODIPINE 10 MG TABLET Take 10 mg by mouth once adolfo* FOLIC ACID 1 MG TABLET TAKE 1 TABLET DAILY FAMOTIDINE 20 MG TABLET Take 1 tablet by mouth twice * TRIAMCINOLONE ACETONIDE 0.1 %* Apply 1 application to affect* ONDANSETRON HCL 8 MG TABLET Take 1 tablet by mouth every * ERGOCALCIFEROL (VITAMIN D2) O* Take 1 capsule by mouth. Once* DOC-Q-LACE 100 MG CAPSULE TAKE 1 CAPSULE TWICE A DAY LISINOPRIL 20 MG TABLET Take 20 mg by mouth once adolfo* CALCIUM ACETATE 667 MG TABLET Take 667 mg by mouth three ti* VITAMIN B COMPLEX AND VITAMIN* Take 1 capsule by mouth once * ACETAMINOPHEN 325 MG TABLET Take 650 mg by mouth every 6 * LEVOFLOXACIN 500 MG TABLET Take 1/2 tablet by mouth ever* Medication notes this encounter LEVOFLOXACIN 500 MG TABLET >> Cheyenne Jane MA 03/28/2017 8:48 AM >> CHEYENNE JANE MA Mar 28, 2017 8:48 AM Completed Problem List As Of Date 03/28/2017 Noted Resolved Obesity [E66.9] INVALID FOR*09/13/2010 Pallor [R23.1] INVALID FOR*07/10/2009 LBP (low back pain) [M54.5] INVALID FOR*10/25/2012 Vomiting [R11.10] INVALID FOR*09/13/2010 Anemia due to blood loss [D50.0] INVALID FOR*12/27/2009 Dyspnea [R06.00] INVALID FOR*08/26/2009 Chest Pain [R07.9] INVALID FOR*08/26/2009 Cervix cancer [C53.9] INVALID FOR*10/25/2012 More... 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 Radiation cystitis [N30.40] INVALID FOR*10/25/2012 S/P ileal conduit [Z93.6] INVALID FOR*10/25/2012 SUMMARY [V999.95] INVALID FOR* Priority: A More... Progressively worsening kidney function [N18.9]INVALID FOR* Priority: B More... Hx of cervical cancer [Z85.41] INVALID FOR* Priority: E More... H/o Renal cell cancer [C64.9] INVALID FOR* Priority: F More... DVT prophylaxis [[id number]] INVALID FOR*11/02/2012 Priority: L More... DISPOSITION AND FOLLOW-UP [V999.01] INVALID FOR*11/02/2012 Priority: M More... Iron deficiency anemia [D50.9] INVALID FOR* Priority: C More... Euthyroid sick syndrome [E07.81] INVALID FOR* Priority: G More... Osteomyelitis [M86.9] INVALID FOR* Priority: D More... Renal failure [N19] INVALID FOR* End stage renal disease [N18.6] INVALID FOR* Anemia [D64.9] Primary lung cancer with metastasis from lung t*INVALID FOR*09/22/2016 Right middle lobe pneumonia [J18.1] INVALID FOR* Chronic kidney disease, stage V (HCC) [N18.5] More... Cancer of trachea, bronchus, and lung (HCC) [C3*INVALID FOR* More... 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 REPOSITORY HNO ID: [id number] Author: Lakshmi Ivey Machadoedenilson Caldwell Service: (none) Author Type: (none) Type: Progress Notes Filed: 03/26/2017 10:50 AM Note Text: Radiology Service Progress Note PATIENT NAME: Yun Nelson DATE OF SERVICE: March 26, 2017 TIME: 10:50 AM PATIENT IDENTITY VERIFICATION COMPLETED USING TWO (2) METHODS: Patient confirmed name verbally and Date of . PATIENT GENDER DATA: Female. status: : No status: NO. PATIENT RELEVANT IMPLANT DATA REVIEWED: Not Applicable RADIOLOGY DEPARTMENT: CT; Exam(s) Completed: Chest PERIPHERAL IV DATA: Not applicable SIGNED BY: Lakshmi Uche Machado Ct March 26, 2017 10:[address] CHEST WO IVCON Observed: 03/26/2017 Status: F Source: [place] 10:[address] 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 M: [id number] CT Dose-Length Product: 407 mGy*cm CT Dose Reduction Employed: Automated exposure control (AEC) Comparison: CT chest on 12/11/2016 RESULT: Limitations: None. Lines, tubes, and devices: None. Lung parenchyma and pleura: Occlusion of the right middle lobe bronchus is again noted, with triangular opacity in the right middle lobe which is likely presenting atelectasis. Also noted linear calcifications and area of low density in the right middle lobe. The majority of previously mentioned innumerable nodules in the right lung have resolved, suggestive of inflammatory/infectious process. Note is made of consolidative opacities in the right perihilar region, with air bronchogram. New right-sided partially loculated pleural effusion is present. Stable 1.1 x 0.8 cm nodule along the left posterior pleural surface, series 4 image 145. There is a 5 mm nodule in the left upper lobe, series 4 images 54. Also noted new 5 mm nodule in the left upper lobe, series 4 images 66. There appears to be mild septal thickening in the left lung. No left-sided pleural effusion identified. No pneumothorax. Thoracic inlet, heart, and mediastinum: The thyroid gland is only partially visualized. No supraclavicular adenopathy. There are a few enlarged axillary lymph nodes showing fatty nacho. Significant enlargement of the right subclavian vein, with tortuous collateral veins along the right axilla/chest wall. There appear to be stable mediastinal lymph nodes however not fully characterized without intravenous contrast. Right hilar lymph node enlargement cannot be excluded. The thoracic aorta, central pulmonary arteries and cardiac chambers have been stable, without pericardial effusion/thickening. Bones and soft tissues: Unchanged. Upper abdomen: Limited study through the upper abdomen demonstrates gallbladder stones. Multiple small lymph nodes in the retroperitoneum, not substantially changed. IMPRESSION: Interval development of right perihilar consolidative opacities with right-sided pleural effusion. The differential consideration would be infections however underlying malignancy cannot excluded. Paracentesis is suggested. The majority of previously seen nodules in the right lung have resolved, suggestive of inflammatory/infectious process. Stable left lung nodules and new 5 mm left lung nodule. Collapsed right middle lobe unchanged, likely related to prior treatment. Gallbladder stones. Solar Maintenance Technician: ISAEL Transcribe Date/Time: Mar 27 2017 8:23A Dictated by : COLLEEN KILLIAN MD This examination was interpreted and the report reviewed and electronically signed by: COLLEEN KILLIAN MD on Mar 27 2017 11:19AM EST [id number] ALLERGIES ALLERGIES DATE TYPE / CODE NAME / CODE REACTION SEVERITY SOURCE 02/02/2018 Drug No Known Unknown [facility]/416 Allergies/[id number] [facility] [id number](SNOM 0388(RXNORM) Repository ED CT) [id number] NO KNOWN [facility] 6(SNOMED [facility]ERGIES [facility] Repository Drug NO KNOWN [facility] Class/09536 ALLERGIES [facility] 1003(SNOMED Repository CT) ENCOUNTERS ENCOUNTERS ADMIT/DISCHARGE ACCOUNT NUMBER ADMITTING ENCOUNTER LOCATION SOURCE CLASS 03/13/2018/03/13/19 [id number] Ambulatory [address] Repository 03/13/2018/03/13/19 [id number] Ambulatory [facility] Repository 03/06/2018/03/07/19 [id number] Ambulatory [facility] Repository 03/04/2018/03/05/19 [id number] Ambulatory [facility] Repository 03/04/2018/03/05/19 [id number] Ambulatory [facility] Repository 02/22/2018/02/25/19 [id number] Ambulatory [facility] Repository 02/21/2018/02/21/19 [id number] Ambulatory [facility] Repository 02/21/2018/02/22/19 [id number] Ambulatory [place] [facility] [place] Repository 02/14/2018/02/16/20 [id number] Ambulatory [place] [facility] [place] Repository 02/14/2018/02/16/20 [id number] Ambulatory [place] [address] [facility] [place] Repository 02/08/2018/02/09/20 [id number] Ambulatory [place] [address] [facility] [place] Repository 02/08/2018/02/12/20 [id number] Ambulatory [place] [address] [facility] [place] Repository 02/02/2018/02/03/20 [id number] Emergency [address] ding:ED Repository 01/24/2018 [id number] Ambulatory [facility] ding:SL Repository 01/14/2018/01/18/20 [id number] Eric Desir Inpatient [address] ding:PCURoom Repository : [id number]: 1 01/14/2018 [id number] Eric Desir Ambulatory B[place]Building: [place] [facility] Repository 01/14/2018 [id number] Eric Desir Ambulatory BMSBuilding: [place] [facility] Repository 01/14/2018 [id number] Eric Desir Ambulatory BMSBuilding: [place] [facility] Repository 01/14/2018 [id number] Eric Desir Ambulatory BMSBuilding: [place] [facility] Repository 01/09/2018/01/10/20 [id number] Ambulatory [place] [facility] [place] Repository 01/09/2018/01/12/20 [id number] Ambulatory [place] [facility] [place] Repository 01/02/2018/01/04/20 [id number] Ambulatory [place] [facility] [place] Repository 12/31/2017/01/02/20 [id number] Ambulatory [place] [facility] [place] Repository 12/31/2017/01/02/20 [id number] Ambulatory [place] [facility] [place] Repository 12/28/2017/01/03/20 [id number] Ambulatory [place] [facility] [place] Repository 12/19/2017/12/21/19 [id number] Ambulatory [place] [facility] [place] Repository 12/19/2017/12/21/19 [id number] Ambulatory [place] [facility] [place] Repository 12/12/2017/12/14/19 [id number] Ambulatory [place] [facility] [place] Repository 12/12/2017/12/14/19 [id number] Ambulatory [place] [facility] [place] Repository 12/05/2017/12/07/19 [id number] Ambulatory [place] [facility] [place] Repository 12/03/2017/12/05/19 [id number] Ambulatory [place] [facility] [place] Repository 12/03/2017/12/05/19 [id number] Ambulatory [place] [facility] [place] Repository 11/27/2017 [id number] Ambulatory [facility] ding: Repository 11/21/2017/12/05/19 [id number] Ambulatory [place] [facility] [place] Repository 11/21/2017/12/05/19 [id number] Ambulatory [place] [facility] [place] Repository 11/14/2017/12/05/19 [id number] Ambulatory [place] [facility] [place] Repository 11/14/2017/11/16/19 [id number] Ambulatory [place] [facility] [place] Repository 11/09/2017/11/13/19 [id number] Ambulatory [place] [facility] [place] Repository 11/07/2017/12/05/19 [id number] Ambulatory [place] [facility] [place] Repository 11/05/2017/11/07/19 [id number] Ambulatory [place] [facility] [place] Repository 11/05/2017/11/07/19 [id number] Ambulatory [place] [facility] [place] Repository 10/31/2017/12/05/19 [id number] Ambulatory [place] [facility] [place] Repository 10/25/2017/09/07/20 [id number] Ambulatory [place] [facility] [place] Repository 10/24/2017/10/26/19 [id number] Ambulatory [address] [place] Repository 10/24/2017/10/25/19 [id number] Ambulatory [place] [facility] [place] Repository 10/17/2017 [id number] Arlene Ag Ambulatory BMSBuilding: [place] [facility] Repository 10/17/2017 [id number] Arlene Ag Ambulatory BMSBuilding: [place] [facility] Repository 10/17/2017/10/19/19 [id number] Koram, Arlene Ambulatory [place] [facility] ding:EANURozoë Repository : [id number]: 1 10/10/2017/10/12/19 [id number] Ambulatory [address] [place] Repository 10/09/2017/10/11/19 [id number] Ambulatory [address] [place] Repository 10/09/2017/10/10/19 [id number] Ambulatory [address] [place] Repository 09/26/2017/09/28/19 [id number] Ambulatory [address] [place] Repository 09/26/2017/09/28/19 [id number] Ambulatory [place] [facility] [place] Repository 09/19/2017/09/21/19 [id number] Ambulatory [place] [facility] [place] Repository 09/19/2017/09/21/19 [id number] Ambulatory [place] [facility] [place] Repository 09/12/2017/09/14/19 [id number] Ambulatory [place] [facility] [place] Repository 09/12/2017/09/14/19 [id number] Ambulatory [place] [facility] [place] Repository 09/05/2017/10/13/19 [id number] Ambulatory [place] [facility] [place] Repository 09/05/2017/09/06/19 [id number] Ambulatory [place] [facility] [place] Repository 09/05/2017/09/06/19 [id number] Ambulatory [place] [facility] [place] Repository 09/05/2017/09/07/19 [id number] Ambulatory [place] [facility] [place] Repository 09/05/2017/09/07/19 [id number] Ambulatory [place] [place] Repository 09/05/2017 [id number] Ambulatory [facility] MEDICAL Repository CENTERBuildi ng:CAGWS 08/08/2017/08/10/19 [id number] Ambulatory [address] [place] Repository 08/06/2017/08/07/19 [id number] Ambulatory [address] [place] Repository 07/25/2017/07/27/19 [id number] Ambulatory [address] [place] Repository 07/18/2017/07/19/19 [id number] Ambulatory [address] [place] Repository 07/18/2017/09/27/19 [id number] Ambulatory [address] [place] Repository 07/18/2017/07/19/19 [id number] Ambulatory [address] Repository 06/15/2017/06/19/19 [id number] Ambulatory [address] Repository 06/14/2017/06/19/19 [id number] Ambulatory [address] Repository 06/12/2017 [id number] Ambulatory [facility] Repository 06/12/2017 [id number] Ambulatory [facility] Repository 06/07/2017/06/12/19 [id number] Ambulatory BMSBuilding: [place] [address] [place] [address] Repository 06/07/2017 [id number] [place], Ambulatory BMSBuilding: [place] [facility] Repository 06/07/2017 [id number] [place], Ambulatory BMSBuilding: [place] [facility] Repository 06/07/2017 [id number] [place], Ambulatory BMSBuilding: [place] [facility] Repository 06/07/2017 [id number] [place], Ambulatory BMSBuilding: [place] [facility] Repository 06/07/2017/06/12/19 [id number] [place], Inpatient [place] 18 [facility] ding:Susu Repository : [id number]: 1 06/07/2017 [id number] [place], Ambulatory BMSBuilding: [place] [facility] Repository 06/04/2017/06/06/19 [id number] Ambulatory [place] [facility] [place] Repository 06/04/2017/06/05/19 [id number] Ambulatory [place] [facility] [place] Repository 05/28/2017/10/09/19 [id number] Ambulatory [place] [facility] [place] Repository 05/28/2017/05/29/19 [id number] Ambulatory [place] [facility] [place] Repository 05/21/2017/05/23/19 [id number] Ambulatory [place] [facility] [place] Repository 05/21/2017/05/23/19 [id number] Ambulatory [place] [facility] [place] Repository 05/21/2017/05/24/19 [id number] Ambulatory [place] [facility] [place] Repository 05/16/2017/05/17/19 [id number] Ambulatory [place] [facility] [place] Repository 05/16/2017/05/17/19 [id number] Ambulatory [place] [facility] [place] Repository 05/16/2017/05/17/19 [id number] Ambulatory [place] [facility] [place] Repository 05/14/2017/05/15/19 [id number] Ambulatory [place] [facility] [place] Repository 05/14/2017/05/16/19 [id number] Ambulatory [place] [facility] [place] Repository 05/11/2017/05/15/19 [id number] Ambulatory [place] [facility] [place] Repository 05/11/2017/05/12/19 [id number] Ambulatory [place] [facility] [place] Repository 05/11/2017/05/12/19 [id number] Ambulatory [place] [facility] [place] Repository 05/04/2017/05/08/19 [id number] Ambulatory [place] [facility] [place] Repository 04/30/2017/05/02/19 [id number] Ambulatory [place] [facility] [place] Repository 04/30/2017/05/02/19 [id number] Ambulatory [place] [facility] [place] Repository 04/23/2017/04/25/19 [id number] Ambulatory [place] [facility] [place] Repository 04/23/2017/08/01/19 [id number] Ambulatory [place] [facility] [place] Repository 04/16/2017/04/16/19 [id number] Ambulatory [place] [facility] [place] Repository 04/16/2017/04/17/19 [id number] Ambulatory [place] [facility] [place] Repository 04/11/2017/02/21 [id number] Ambulatory [address] Repository 04/04/2017 [id number] Ambulatory [facility] ding:US Repository 04/03/2017/04/03/19 [id number] Ambulatory [address] Repository 04/02/2017 [id number] Ambulatory [facility] ding:LABSPEC Repository 04/02/2017 [id number] Ambulatory [facility] ding:LABSPEC Repository 04/02/2017/04/02/19 [id number] Ambulatory [address] Repository 03/28/2017/03/29/19 [id number] Ambulatory [address] Repository 03/28/2017/03/29/19 [id number] Ambulatory [address] Repository 03/26/2017/03/26/19 [id number] Ambulatory [address] Repository 03/16/2017/03/16/19 [id number] Ambulatory [address] Repository PAYERS PAYERS ENCOUNTER GUARANTOR PAYER SUBSCRIBER SOURCE 02/02/2018 BHARATHI CHUA2 Primary YUN D [place] [address] Insurance:[facility] WRIGHTDOB: [address] *[place] [facility] [id number] Hospital [address]Vmi: (330) Number: Repository [phone] () [id number] Date:5964-99-99[address] [address]VQ: 02/02/2018 Secondary NOT GIVENUNK [place] Insurance:SELF PAY [facility] Number: Effective Repository Date:2018-02-02 01/24/2018 BHARATHI NELSON1872 Primary NOT GIVENUNK [place] Insurance:SELF PAY [address] [address]Zgl: (330) Number: Effective Repository [phone] () Date:2017-12-06 01/14/2018 BHARATHI NELSON1872 Primary YUN D [place] Insurance:[facility] WRIGHTDOB: [address] *[place] [facility] [id number] Hospital [address]Ukr: (330) Number: Repository [phone] () [id number] Date:7753-15-81ZS [address] [address]AM: 01/14/2018 Secondary NOT GIVENUNK [place] Insurance:SELF PAY [facility] Number: Effective Repository Date:2018-01-14 01/14/2018 BHARATHI CHUA2 Primary Y[place] D [place] E [address] Insurance:[facility] WRIGHTDOB: [place] [address]03-21[facility] [address]Bzd: (330) Number: Repository [phone] () [id number] Date:5092-53-98UR [address] [address]EX: 01/14/2018 Secondary NOT GIVENUNK [place] Insurance:SELF PAY [facility] Number: Effective Repository Date:2018-01-14 01/14/2018 BHARATHI CHUA2 Primary YUN D [place] E [address] Insurance:[facility] WRIGHTDOB: [place] [address]03-21[facility] [address]Vqm: (330) Number: Repository [phone] () [id number] Date:9834-78-30XI [address] [address]UE: 01/14/2018 Secondary NOT GIVENUNK [place] Insurance:SELF PAY [facility] Number: Effective Repository Date:2018-01-14 01/14/2018 BHARATHI CHUA2 Primary YUN D [place] [address] Insurance:[facility] WRIGHTDOB: [place] [address]03-21[facility] [address]Dfi: (330) Number: Repository [phone] () [id number] Date:0667-62-82YJ [address] [address]UP: 01/14/2018 Secondary NOT GIVENUNK [place] Insurance:SELF PAY [facility] Number: Effective Repository Date:2018-01-14 01/14/2018 BHARATHI NELSON1872 Primary YUN D [place] E [address] Insurance:[facility] WRIGHTDOB: [place] [facility] [id number] Hospital [address]Wbk: (330) Number: Repository [phone] () [id number] Date:1615-46-91CW [address] [address]NK: 01/14/2018 Secondary NOT GIVENUNK [place] Insurance:SELF PAY [facility] Number: Effective Repository Date:2018-01-14 11/27/2017 BHARATHI CHUA2 Primary YUN D [place] [address] Insurance:[facility] WRIGHTDOB: [place] [facility] [id number] Hospital [address]Zjg: (330) Number: Repository [phone] () [id number] Date:5264-58-59QZ [address] [address]AI: 11/27/2017 Secondary NOT GIVENUNK [place] Insurance:SELF PAY [facility] Number: Effective Repository Date:2017-11-09 10/17/2017 BHARATHI NELSON1872 Primary Y[place] D [place] E [address] Insurance:[facility] WRIGHTDOB: [place] [facility] [id number] Hospital [address]Zse: (330) Number: Repository [phone] () [id number] Date:2817-90-96DO [address] [address]UY: 10/17/2017 Secondary NOT GIVENUNK [place] Insurance:SELF PAY [facility] Number: Effective Repository Date:2017-10-17 10/17/2017 BHARATHI NELSON1872 Primary YUN D [place] [address] Insurance:[facility] WRIGHTDOB: [place] [facility] [id number] Hospital [address]Iax: (330) Number: Repository [phone] () [id number] Date:8015-21-09CP [address] [address]FY: 10/17/2017 Secondary NOT GIVENUNK [place] Insurance:SELF PAY [facility] Number: Effective Repository Date:2017-10-17 10/17/2017 BHARATHI CHUA2 Primary YUN D [place] E MIC[facility]EL [facility] Insurance:[facility] WRIGHTDOB: [place] [address] [facility] [id number] Hospital [address]Nfs: (330) Number: Repository [phone] () [id number] Date:1150-19-43IB [address] [address]RF: 10/17/2017 Secondary NOT GIVENUNK [place] Insurance:SELF PAY [facility] Number: Effective Repository Date:2017-10-17 09/05/2017 YUN D Primary YUN D [facility] WRIGHTDOB: [facility] E MEDICAREPolicy [id number] Repository [facility] Number: [place] [id number] [address]Hlk: (330) Date: [id number] () 09/05/2017 Secondary YUN D [facility] Insurance:[facility] WRIGHTDOB: [facility] MEDICAID [facility] [id number] Repository Number: [id number] Date: 06/07/2017 BHARATHI GONZALEZ Primary YUN D [place] [facility] WRIGHTDOB: [place] [facility] [id number] Hospital [address]Ojw: (330) Number: Repository [phone] () [id number] Date:8570-41-80FR [address] [address]XI: 06/07/2017 Secondary NOT GIVENUNK [place] Insurance:SELF PAY [facility] Number: Effective Repository Date:2017-06-07 06/07/2017 BHARATHI CHUA2 Primary YUN D [place] E [address] Insurance:[facility] WRIGHTDOB: [place] [address]03-21[facility] [address]Cfb: (330) Number: Repository [phone] () [id number] Date:8960-29-28JW [address] [address]AE: 06/07/2017 Secondary NOT GIVENUNK [place] Insurance:SELF PAY [facility] Number: Effective Repository Date:2017-06-07 06/07/2017 BHARATHI CHUA2 Primary YUN D [place] [address] Insurance:[facility] WRIGHTDOB: [place] [address]03-21[facility] [address]Lwe: (330) Number: Repository [phone] () [id number] Date:5862-62-51CO [address] [address]HU: 06/07/2017 Secondary NOT GIVENUNK [place] Insurance:SELF PAY [facility] Number: Effective Repository Date:2017-06-07 06/07/2017 BHARATHI CHUA2 Primary YUN D [place] [address] Insurance:[facility] WRIGHTDOB: [place] [address]-21[facility] [address]Rns: (330) Number: Repository [phone] () [id number] Date:3197-83-00OX [address] [address]GT: 06/07/2017 Secondary NOT GIVENUNK [place] Insurance:SELF PAY [facility] Number: Effective Repository Date:2017-06-07 06/07/2017 BHARATHI CHUA2 Primary YUN D [place] [address] Insurance:[facility] WRIGHTDOB: [place] [address] [address]Uou: (330) Number: Repository [phone] () [id number] Date:7943-02-82EE [address] [address]IC: 06/07/2017 Secondary NOT GIVENUNK [place] Insurance:SELF PAY [facility] Number: Effective Repository Date:2017-06-07 06/07/2017 BHARATHI NELSON1872 Primary YUN D [place] [address] Insurance:[facility] WRIGHTDOB: [place] [facility] [id number] Hospital [address]Fyt: (330) Number: Repository [phone] () [id number] Date:9004-95-76RW [address] [address]YN: 06/07/2017 Secondary NOT GIVENUNK [place] Insurance:SELF PAY [facility] Number: Effective Repository Date:2017-06-07 06/07/2017 BHARATHI CHUA2 Primary YUN D [place] [address] Insurance:[facility] WRIGHTDOB: [place] [address] [facility] [id number] Hospital [address]Jbe: (330) Number: Repository [phone] () [id number] Date:8805-10-29LY[address] [address]QP: 06/07/2017 Secondary NOT GIVENUNK [place] Insurance:SELF PAY [facility] Number: Effective Repository Date:2017-06-07 04/04/2017 Bharathi Chua2 Primary YUN WRIGHTDOB: [place] [address] Insurance:[facility] [id number] [address] [place] [address] [facility] [address]Etu: (330) Number: Repository [phone] () [id number] Date:3040-99-59WK[address] [address]EF: 04/04/2017 Secondary NOT GIVENUNK [place] Insurance:SELF PAY [facility] Number: Effective Repository Date:2017-03-28 04/02/2017 Bharathi Gonzalez Primary YUN WRIGHTDOB: [place] [address] Insurance:[facility] [id number] [place] [facility] [address]Oau: (330) Number: Repository [phone] () [id number] Date:1802-85-32FZ [address] [address]ZW: 04/02/2017 Secondary NOT GIVENUNK [place] Insurance:SELF PAY [facility] Number: Effective Repository Date:2017-04-02 04/02/2017 Bharathi [id number] Primary YUN BHAGATB: [place] [address] Insurance:[facility] [id number] [place] [facility] [address]Tyn: (330) Number: Repository [phone] () [id number] Date:8115-53-14IQ [address] [address]EX: 04/02/2017 Secondary NOT GIVENUNK [place] Insurance:SELF PAY [facility] Number: Effective Repository Date:2017-04-02
== END 2018-02-02 20:59 | disposition home or self-care (01) ==
PROVIDERS: Emergency Provider Emergency Medicine; Family Provider Student in an Organized Health Care Education/Training Program; PCP Student in an Organized Health Care Education/Training Program
DX: R11.2 Nausea with vomiting, unspecified (principal); R10.32 Left lower quadrant pain; R19.7 Diarrhea, unspecified; D64.9 Anemia, unspecified; K43.9 Ventral hernia without obstruction or gangrene; J34.89 Other specified disorders of nose and nasal sinuses; M54.9 Dorsalgia, unspecified; N18.6 End stage renal disease; Z85.118 Personal history of other malignant neoplasm of bronchus and lung; Z93.6 Other artificial openings of urinary tract status; Z79.899 Other long term (current) drug therapy
CPT/HCPCS: 74176; 80053; 83690; 85025; 96374; 99283; J2405

== ENCOUNTER 2018-05-17 12:56 | Emergency (ER) | payer MEDICARE, SELFPAY ==
[2018-05-17 12:57] VITALS: BP 95/47; PULSE 79; RESP 18; TEMP 36.4; O2SAT 100; BMI 29.2
--- NOTE | 2018-05-17 13:30 | ED.VIS.GEN ---
History of Present Illness Chief Complaint: General Illness Detail of Chief Complaint: diarrhea, vomiting Informant: Patient Onset: Yesterday Context: Gradual Onset Quality: nonbloody loose diarrhea Current Severity: Moderate Maximum Severity: Moderate Worsened by: nothing Relieved by: nothing Associated Symptoms: malaise, nausea, vomited once this AM Narrative: Vomited once, no blood or coffee-ground emesis. No fevers that she knows of. She was in her hematology oncologist office today, she is seen there weekly for her metastatic cervical cancer with lung metastases, to get standard chemotherapy and told him about this illness. Her doctor was offering to treat her there but she declined and wanted to come to the emergency department. She is an uric, on hemodialysis, her last dialysis session was yesterday, she states because of not feeling well she missed a couple of sessions before that. Her blood pressure was in the 80s at dialysis and states that is pretty standard for her. It was better in the office today. In the office today, her hemoglobin is 11.2 and her platelets are 182 and her white blood count was pending, but those records are not available to us here in the ER. She states she is nauseated 24/7, all of the time for the last year or 2, so that is no different than usual. She is having some lower abdominal discomfort off and on, feels like cramping. - Past Medical History (1) End-stage renal disease on hemodialysis Status: Chronic (2) Endometrial cancer Status: Chronic Comment: Status post hysterectomy, cystectomy and partial colectomy due to metastatic disease (3) Hypertension Status: Chronic Past Medical History - Allergies and Home Meds Allergies/Adverse Reactions: Allergies No Known Allergies Allergy (Verified 05/17/18 13:00) Primary Care Physician: Lawrence Dozier DO [Primary Care Provider] - 3-5 Days Eric Arteaga DO [STAFF PHYSICIAN] - 3-5 Days Surgical History: hysterectomy - for cervical cancer, - - Left nephrectomy for cancer with rt ileoconduit, Colostomy, Hysterectomy with BL RAHEEL, AVF RUE. Lives: Spouse/ Significant Other Smoking Status: Former smoker - Family History Paternal Family History: Reports: No pertinent history Maternal Family History: Reports: No pertinent history Review of Systems General: Reports: Malaise. Denies: Fever Eyes: Denies: Visual changes - bilaterally, Diplopia Cardiovascular: Denies: Chest pain Respiratory: Reports: Cough - chronic. Denies: Dyspnea Gastrointestinal: Reports: Abdominal pain, Nausea, Vomiting, Diarrhea. Denies: Melena, Hematochezia Genitourinary: Denies: Dysuria, Hematuria Musculoskeletal: Reports: Neck pain. Denies: Extremity Pain Neurological: Denies: Headache, Weakness, Numbness Physical Exam Vital Signs/Narrative: Vital Signs Temp Pulse Resp BP Pulse Ox 05/17/18 12:57 97.6 F L 79 18 95/47 L 100 Inital Vital Signs reviewed: Yes General: Well nourished, Well developed, Unkempt, No Acute Distress Head: Normocephalic, Atraumatic Eyes: Perrl, EOMI ENT: Moist mucous membranes, No rhinorrhea. Negative for: Nasal congestion Neck: Supple, Nontender Cardiovascular: Regular rate, Regular rhythm, No murmurs Respiratory: No distress, CTA bilaterally, Chest nontender, Diminished - throughout, symmetrically Abdomen: Soft, Nontender, Nondistended, Normal bowel sounds, No masses. Negative for: Guarding, Rebound tenderness Extremities: Nontender, No edema Skin: Normal color, No rash, No Trauma Neurological: Alert, Oriented x3, Cranial nerves II-XII grossly intact, Normal Strength, Normal Sensation Psychological: Normal affect, Normal Mood Diagnostic/Tx/Re-eval Laboratory Results 05/17/18 05/17/18 13:45 13:45 WBC 5.2 RBC 4.45 Hgb 11.3 L Hct 37.4 MCV 84.0 MCH 25.4 L MCHC 30.2 L RDW 15.2 H RDW Differential 46.3 H Plt Count 175 MPV 9.1 Immature Gran % (Auto) 0.600 Neut % (Auto) 79.4 H Lymph % (Auto) 14.8 L [place] % (Auto) 3.8 Eos % (Auto) 1.2 Baso % (Auto) 0.2 Absolute Neuts (auto) 4.1 Absolute Lymphs (auto) 0.77 L Total Counted Not Reportable Sodium 137 Potassium 3.5 Chloride 97 L Carbon Dioxide 32.0 Anion Gap 8 BUN 38 H Creatinine 8.16 H* Estim Creat Clear Calc 6.09 Est GFR (MDRD) Af Amer 7 L Est GFR (MDRD) Non-Af 5 L BUN/Creatinine Ratio 4.7 L Glucose 82 Calcium 8.1 L - Medical Decision Making Patient states she feels less nauseated but still nauseated after Zofran. She states she vomited afterward, but according to nursing, she was almost on pushing the medication when she last vomited. We will give her Phenergan 6.25 mg, her electrolytes are within normal limits, her creatinine and BUN are elevated but she has chronic renal failure and was dialyzed yesterday. Her blood counts are unremarkable. Her abdomen is very benign, I suspect a viral etiology of her symptoms. There is high prevalence of that in the community at this time. I do not think she requires admission, she is given oral fluids to drink and if tolerates will be discharged home to follow-up with her oncologist. ED Disposition - Plan for ED Patient: Disposition: Home or Assisted Living Diagnosis: Gastroenteritis, End-stage renal disease on hemodialysis, Chronic nausea Prescriptions: proMETHazine tablet [Phenergan] 25 mg PO Q6H PRN PRN #10 tab PRN Reason: Nausea Referrals: Lawrence Dozier DO [Primary Care Provider] - 3-5 Days Eric Arteaga DO [STAFF PHYSICIAN] - 3-5 Days
[2018-05-17] MEDS: Ondansetron 4 MG/2 ML Vial IV (13:46)
[2018-05-17] MEDS: Dicyclomine 10 MG Capsule PO (13:46)
[2018-05-17 14:05] LABS: Absolute Lymphocyte Count 0.77 X10^3/ul (0.83-4.51); Absolute Neutrophil Count 4.1 X10^3/uL (2.0-7.7); Basophil# 0.01 X10^3/uL; Basophil% 0.2 % (0-1); Eosinophil# 0.06 X10^3/uL; Eosinophils% 1.2 % (0-5); Hematocrit 37.4 % (37-47); Hemoglobin 11.3 g/dl (12.0-15.0); Lymphocyte # 0.77 X10^3/ul (4.0); Lymphocyte % 14.8 % (19-41); Mean Corp Hgb Conc 30.2 g/gl (32-36); Mean Corpuscular Hgb 25.4 pg (27.0-32.0); Mean Platelet Vol. 9.1 fl (6.2-12.0); Monocyte% 3.8 % (0-10); Neutrophil # 4.13 X10^3/uL (2.7-7.7); Neutrophil % 79.4 % (47-70); Platelet Count 175 K/mm3 (150-450); RBC Distribution Width CV 15.2 % (11.6-14.6); RBC Distribution Width SD 46.3 fl (35.1-43.9); Red Blood Count 4.45 M/mm3 (4.2-5.4); White Blood Count 5.2 K/mm3 (4.4-11.0)
[2018-05-17 14:07] LABS: POSITIVE COUNT NO; POSITIVE DIFFERENTIAL NO; POSITIVE MORPHOLOGY NO
[2018-05-17 14:14] LABS: BUN 38 mg/dL (7-18); Creatinine, Serum 8.16 mg/dL (0.55-1.02); Estimated Creatinine Clearance 6.09 ml/min; Glucose 82 mg/dL (74-106)
[2018-05-17 14:15] LABS: Anion Gap 8 (5-15); BUN/Creat Ratio 4.7 RATIO (10-20); Calcium,Total 8.1 mg/dL (8.5-10.1); Chloride 97 mmol/L (98-107); EST Glomerular Filtration Rate 5 mL/min (>60); Est Glom Filt Rate - Afr Amer 7 mL/min (>60); Potassium 3.5 mmol/L (3.5-5.1); Sodium Level 137 mmol/L (136-145)
[2018-05-17 14:48] VITALS: BP 110/59
[2018-05-17] MEDS: proMETHazine 25 MG/ML Syringe 6.25 MG IV (15:04)
[2018-05-17] MEDS: Mag Hydrox/Al Hydrox/Simeth 30 ML UDC PO (15:18)
[2018-05-17 16:08] VITALS: BP 100/57; RESP 17; O2SAT 100
--- NOTE | 2018-05-17 16:32 | ED.DEP ---
ED Disposition - Plan for ED Patient: Disposition: Home or Assisted Living Diagnosis: Gastroenteritis, End-stage renal disease on hemodialysis, Chronic nausea Instructions: ED Gastroenteritis Viral Prescriptions: proMETHazine tablet [Phenergan] 25 mg PO Q6H PRN PRN #10 tab PRN Reason: Nausea Referrals: Lawrence Dozier DO [Primary Care Provider] - 3-5 Days Eric Arteaga DO [STAFF PHYSICIAN] - 3-5 Days
[2018-05-17 16:50] VITALS: BP 103/59; PULSE 73; RESP 16; O2SAT 98
== END 2018-05-17 16:54 | disposition home or self-care (01) ==
PROVIDERS: Emergency Provider Emergency Medicine; Family Provider Student in an Organized Health Care Education/Training Program; PCP Student in an Organized Health Care Education/Training Program; Referring Provider Internal Medicine Hematology & Oncology
DX: K52.9 Noninfective gastroenteritis and colitis, unspecified (principal); N18.6 End stage renal disease; C54.1 Malignant neoplasm of endometrium; C78.00 Secondary malignant neoplasm of unspecified lung; C79.82 Secondary malignant neoplasm of genital organs; Z99.2 Dependence on renal dialysis; I12.0 Hypertensive chronic kidney disease with stage 5 chronic kidney disease or end stage renal disease; R11.0 Nausea; Z87.891 Personal history of nicotine dependence; Z93.3 Colostomy status; Z90.710 Acquired absence of both cervix and uterus; Z90.5 Acquired absence of kidney
CPT/HCPCS: 80048; 85025; 96374; 96375; 99282; J7030; J7040; J2405

== ENCOUNTER 2018-06-13 14:21 | Emergency (ER) | payer MEDICARE, SELFPAY ==
[2018-06-13 14:23] VITALS: BP 118/63; PULSE 87; RESP 17; TEMP 36.7; O2SAT 100; BMI 28.0
[2018-06-13 14:47] VITALS: RESP 16
--- NOTE | 2018-06-13 15:12 | EKG12_ITS ---
Test Reason : SOB Blood Pressure : / mmHG Vent. Rate : 077 BPM Atrial Rate : 077 BPM P-R Int : 196 ms QRS Dur : 080 ms QT Int : 396 ms P-R-T Axes : 033 064 010 degrees QTc Int : 448 ms Normal sinus rhythm Nonspecific T-Wave Abnormality Confirmed by NEHA FARIAS, AYLEEN ([id number]), editorial director CALDERON TRIVEDI ([id number]) on 06/26/2018 1:55:39 PM Referred By: HIRO Confirmed By:AYLEEN SOLOMON MD
--- NOTE | 2018-06-13 15:12 | CT_ITS ---
STUDY: CT ABDOMEN AND PELVIS WITHOUT CONTRAST REASON FOR EXAM: Female, 58 years old. Vaginal bleeding for several days, history of left renal cancer, colon cancer, lung cancer, throat cancer RADIATION DOSAGE (If Supplied By Facility): CTDIvol = ( 11.38 ) mGy, DLP = ( 842.69 ) mGycm TECHNIQUE: Transaxial images were obtained from the dome of the diaphragm to the symphysis pubis with oral contrast, and without intravenous contrast. Sagittal and coronal images were reconstructed. Individualized dose optimization techniques were used for this CT. COMPARISON: 02/02/2018 FINDINGS: Parenchymal mass of the right lung base is partially visualized but stable. Small right pleural effusion stable. The visualized portions of the heart are within normal limits. Normal liver. There are multiple gallstones. There is mild splenomegaly. Normal pancreas. Normal bilateral adrenal glands. Severe right renal atrophy is stable since the prior study. Prominent extrarenal pelvis is once again identified. The left kidney is surgically absent. Normal visualized stomach. No dilated loops of small bowel. Left lower quadrant ostomy identified. There is moderate fecal retention in the colon. The distal colon is surgically absent. Soft tissue density in the presacral space is similar since the prior study. There is diffuse atherosclerotic calcification of the abdominal aorta, without a demonstrated aneurysm. Normal inferior vena cava. Normal retroperitoneum. Normal urinary bladder. No pelvic free fluid. Uterus is surgically absent. Complex abdominal wall hernias identified containing both colon and small bowel, grossly similar in size since the prior study. Increased ascitic fluid within the inferior portion of the hernia sac. Trace perihepatic and right paracolic gutter ascites, similar. Body wall edema has increased since the prior study. There are diffuse degenerative changes of the visualized lumbar spine. CT/Abdomen/Pel W ORAL Cont Only IMPRESSION: 1. No evidence of bowel obstruction or acute inflammatory process. 2. Increased body wall edema since prior study. 3. Complex abdominal wall hernia with mildly increased hernia sac fluid in the largest left lower quadrant hernia may represent reactive edema. Trace perihepatic and right paracolic gutter ascites. No dilated loops of small bowel seen within the sac. 4. Lung mass in the right lung base is overall similar prior study. Small right pleural effusion. 5. Severe right renal atrophy is stable. Left nephrectomy. 6. Mild splenomegaly. Electronically Signed: Cayetano Beaulieu MD at 17:48 EDT , Service support ,
--- NOTE | 2018-06-13 15:14 | ED.VISSUMM ---
- ER Visit Summary Date of Service: 06/13/18 Chief Complaint: Vaginal bleeding History of Present Illness: The patient is a 58 F presented by oncologist Dr. Hein she after receiving phone call today of vaginal bleeding for 2 days. States to soak pads per day, also blood on her undergarments. No lightheaded symptoms. Reports to me history of cervical cancer with metastasis. She currently receives chemotherapy every Sunday. No fevers. No abdominal pain. Reports history of total hysterectomy in the past. Denies trauma. No anticoagulation medications. In addition reports dialysis patient for last 4 years Tuesdays and Saturdays. Reports feeling weak therefore missed dialysis Sunday a.m. today. Denies chest pains, palpitations, shortness of breath. History of colostomy and urostomy. States there is still urine output. Physical Examination: General: Alert and oriented ?3, no acute distress HEENT: Normocephalic, atraumatic. Moist mucosa membranes. Normal conjunctiva Neck: supple, nontender. Cardiovascular: Regular rate and rhythm, no murmurs Respiratory: Normal breath sounds, symmetric, no distress Abdomen: Soft, nontender, nondistended. Colostomy left lower quadrant, urostomy right mid lower, positive output. : Speculum examination no active bleeding no blood in the vault. Scarring anteriorly. There was a small open orifice region where the cervix would be With scarring there is no clots. Extremities: Nontender, no edema, pulses intact ?4 Neuro: no focal neurological deficits. Test Results: EKG sinus rate [address] changes. T wave inversions 3 and aVF. New T wave inversion in leads III. Hemoglobin 9.4. BUN [address] abdomen pelvis without contrast notes stable right lower lobe lung mass. Complex abdominal wall hernia increasing fluid. Mild splenomegaly. Emergency Department Course and Treatment: Patient nontoxic vitals stable. No signs of active bleeding on physical exam. Hemoglobin 9.4-month ago was 11.3. Ostomy bag does not have blood. There is no signs of active bleeding CT scan initial order oral contrast however patient refused to take all of the contrast. She is not vomiting. She is also given Zofran to try to help. Results no chronic changes have other noted complex abdominal hernia with mild increasing fluid in the sac per radiology. Multiple reevaluation she is nontender abdomen. Patient states missing dialysis for the discussion she has not done it since Sunday due to reporting it is to code there. I did perform EKG no signs of hyperkalemia. Labs with a potassium 3.6. BUN 52 creatinine 30.9. She still has urine output from her ostomy. Discussed with patient the need for her to go to dialysis. I did speak with her oncologist Dr. Arteaga, will see the patient tomorrow with her chemotherapy and follow-up from there. She does see a hide cooking operator in [facility] Dr. Rosenbaum for which she may need an outpatient follow-up here answered. Treatment Plan: [] Disposition: Discharge Impression: 1. Abnormal vaginal bleeding 3. End-stage renal disease on hemodialysis This note was generated with [employer]irq dictation software. It may contain incorrect words, spelling, and punctuation that were not noted in review of the chart prior to signing ED Disposition - Plan for ED Patient: Disposition: Home or Assisted Living Diagnosis: Abnormal vaginal bleeding, ESRD (end stage renal disease) on dialysis Instructions: ED Bleed Irregular Vaginal, ED Renal Failure Chronic Referrals: Lawrence Dozier DO [Primary Care Provider] - Eric Arteaga DO [STAFF PHYSICIAN] - 1 Day
[2018-06-13 15:47] LABS: Partial Thromboplast Time 35.6 Seconds (24.1-36.2); Prothrombin Time (Protime)PT. 13.2 SECONDS (11.7-14.9)
[2018-06-13 15:54] LABS: Absolute Lymphocyte Count 0.88 X10^3/ul (0.83-4.51); Absolute Neutrophil Count 2.9 X10^3/uL (2.0-7.7); Basophil# 0.03 X10^3/uL; Basophil% 0.7 % (0-1); Eosinophil# 0.12 X10^3/uL; Hemoglobin 9.4 g/dl (12.0-15.0); Lymphocyte # 0.88 X10^3/ul (4.0); Lymphocyte % 21.7 % (19-41); Mean Corp Hgb Conc 29.4 g/gl (32-36); Mean Corpuscular Hgb 23.6 pg (27.0-32.0); Mean Corpuscular Volume 80.4 fL (81-99); Mean Platelet Vol. 9.5 fl (6.2-12.0); Monocyte# 0.07 X10^3/uL; Monocyte% 1.7 % (0-10); Neutrophil # 2.93 X10^3/uL (2.7-7.7); Neutrophil % 72.2 % (47-70); POSITIVE COUNT NO; POSITIVE DIFFERENTIAL NO; POSITIVE MORPHOLOGY NO; Platelet Count 152 K/mm3 (150-450); RBC Distribution Width CV 18.8 % (11.6-14.6); RBC Distribution Width SD 55.3 fl (35.1-43.9); Red Blood Count 3.98 M/mm3 (4.2-5.4); White Blood Count 4.1 K/mm3 (4.4-11.0)
[2018-06-13] MEDS: Ondansetron 4 MG/2 ML Vial IV (16:00)
--- NOTE | 2018-06-13 16:00 | ED.RN ---
patient states she cannot drink this ct drink because her belly is full and it is making her sick. dr. mendes notified. new order for abdulaziz.
[2018-06-13 16:33] LABS: Anion Gap 10 (5-15); BUN 52 mg/dL (7-18); BUN/Creat Ratio 3.7 RATIO (10-20); Calcium,Total 8.1 mg/dL (8.5-10.1); Chloride 99 mmol/L (98-107); EST Glomerular Filtration Rate 3 mL/min (>60); Est Glom Filt Rate - Afr Amer 4 mL/min (>60); Estimated Creatinine Clearance 3.57 ml/min; Glucose 73 mg/dL (74-106); Potassium 3.6 mmol/L (3.5-5.1); Sodium Level 141 mmol/L (136-145)
--- NOTE | 2018-06-13 16:38 | ED.RN ---
Dr Alvarado notified of critical creatine of 13.9. no new orders received.
--- NOTE | 2018-06-13 16:58 | ED.RN ---
patient still states she cannot drink ct drink even despite the zofran. dr. mendes notified.
[2018-06-13 16:59] VITALS: PULSE 72; RESP 16
[2018-06-13 18:36] VITALS: BP 126/63; PULSE 72; PULSE 87; RESP 16; O2SAT 98
== END 2018-06-13 18:41 | disposition home or self-care (01) ==
PROVIDERS: Emergency Provider Emergency Medicine; Family Provider Student in an Organized Health Care Education/Training Program; PCP Student in an Organized Health Care Education/Training Program
DX: N93.8 Other specified abnormal uterine and vaginal bleeding (principal); I12.0 Hypertensive chronic kidney disease with stage 5 chronic kidney disease or end stage renal disease; N18.6 End stage renal disease; Z99.2 Dependence on renal dialysis; K43.9 Ventral hernia without obstruction or gangrene; R91.8 Other nonspecific abnormal finding of lung field; R16.1 Splenomegaly, not elsewhere classified; C53.9 Malignant neoplasm of cervix uteri, unspecified; C79.9 Secondary malignant neoplasm of unspecified site; Z93.3 Colostomy status; Z90.710 Acquired absence of both cervix and uterus; Z79.899 Other long term (current) drug therapy
CPT/HCPCS: 74176; 80048; 85025; 85610; 85730; 93005; 96374; 99284; A4216; J2405

== ENCOUNTER → 2018-06-21 | Outpatient (CLI) | payer MEDICARE, SELFPAY ==
[2018-06-13 14:23] VITALS: BMI 28.0
== END | disposition home or self-care (01) ==
LOC: MEDOUTP 17:13
PROVIDERS: Family Provider Student in an Organized Health Care Education/Training Program; PCP Student in an Organized Health Care Education/Training Program; Visit Provider Internal Medicine Hematology & Oncology
DX: Z51.89 Encounter for other specified aftercare (principal)

== ENCOUNTER 2018-06-23 09:05 | Outpatient (CLI) | payer MEDICARE, SELFPAY ==
[2018-06-23 10:15] VITALS: BP 143/70; PULSE 73; RESP 16; TEMP 36.2; O2SAT 99
[2018-06-23 10:19] VITALS: BMI 26.5
[2018-06-23 10:30] VITALS: BP 140/64; PULSE 68; RESP 16; TEMP 36.3; O2SAT 99
[2018-06-23 11:30] VITALS: BP 161/81; PULSE 66; RESP 16; TEMP 36.6; O2SAT 97
[2018-06-23 12:30] VITALS: BP 157/83; PULSE 69; RESP 18; TEMP 36.7; O2SAT 99
[2018-06-23 13:20] VITALS: BP 150/72; PULSE 70; RESP 16; TEMP 36.4; O2SAT 97
== END 2018-06-23 13:20 | disposition home or self-care (01) ==
LOC: MS3OUT 09:10 → MS3 09:11
PROVIDERS: Family Provider Student in an Organized Health Care Education/Training Program; PCP Student in an Organized Health Care Education/Training Program; Visit Provider Internal Medicine Hematology & Oncology
DX: Z51.89 Encounter for other specified aftercare (principal); C33 Malignant neoplasm of trachea
CPT/HCPCS: 36430; 86850; 86870; 86880; 86900; 86902; 86905; 86920; 86922; P9016

== ENCOUNTER 2018-09-25 14:20 | Observation (INO) | payer MEDICARE, SELFPAY ==
[2018-09-25] VITALS (9 sets, daily range): BP systolic 120–128; BP diastolic 63–67; PULSE 80–106; RESP 12–24; TEMP 36.6–37.2; O2SAT 98–100; BMI 23.5; BMI 25.8
--- NOTE | 2018-09-25 14:31 | EKG12_ITS ---
Test Reason : CP Blood Pressure : / mmHG Vent. Rate : 096 BPM Atrial Rate : 096 BPM P-R Int : 168 ms QRS Dur : 080 ms QT Int : 340 ms P-R-T Axes : 018 072 172 degrees QTc Int : 429 ms Normal sinus rhythm T wave abnormality, consider inferior ischemia Abnormal ECG Confirmed by NISHANT JOYA ([id number]), department editor CALDERON TRIVEDI ([id number]) on 09/30/2018 1:29:52 PM Referred By: Arlene Ag Confirmed By:NISHANT JOYA
--- NOTE | 2018-09-25 14:31 | RAD_ITS ---
STUDY: X-RAY CHEST REASON FOR EXAM: Female, 58 years old. Chest pain. TECHNIQUE: Single AP portable view of the chest. COMPARISON: Comparison is made with prior study dated January 16, 2018. FINDINGS: EKG electrodes are seen. Stable elevation of the right hemidiaphragm. There now is evidence of infiltration in the right lung with small right pleural effusion. The nodular densities have decreased in size as compared to prior study. The left lung is clear. There is blunting of the left costophrenic angle. Normal size heart. Normal mediastinum and nacho. Normal visualized pulmonary arteries. Normal visualized aortic arch and descending thoracic aorta. There are diffuse degenerative changes of the visualized thoracic spine. Normal visualized ribs, clavicles, and shoulders. There is no demonstrated abnormality of the visualized soft tissue structures of the upper abdomen. RAD/Chest 1 View (Portable) IMPRESSION: Increasing infiltration in the right lung with a small right pleural effusion. Blunting of left costophrenic angle. Electronically Signed: Jose De Jesus Collado, at 15:13 EDT , Service support ,
--- NOTE | 2018-09-25 14:47 | ED.DCSUM_ITS ---
- ER Visit Summary Date of Service: 09/25/18 Chief Complaint: Chest pain History of Present Illness: The patient is a 58 F history of lung CA with prior cervical CA with mets to her kidney and lungs and states she had a renal resection. Then developed end-stage renal disease and undergoes dialysis typically Sunday, and Sunday but missed yesterday since being dialyzed today. Around 130 this afternoon she developed chest discomfort which she described feel like she has been punched in the chest. Denies ever having any sensation like this before. Has no known cardiac disease. States she is never had a blood clot. She denies any recent hospitalization. He denies any hemoptysis. The pain is not pleuritic. It is intermittent comes and goes. Nothing specifically makes it better or worse. Physical Examination: Middle-aged female chronically ill vital signs are stable he is on a percent on her normal oxygen she is chronically on oxygen. HEENT exam unremarkable. Neck nontender no JVD lymphadenopathy. Lungs clear to auscultation bilaterally. Heart regular rhythm rate about 95 no murmur. Chest wall is nontender. No ecchymosis or bruising. No subcu air. Abdomen is soft and nontender. Remedies moves all 4. Both lower extremities have 1+ pitting edema. Calves are nontender. She states her legs are chronically swollen. Neurologically she is awake and alert. She answers questions and follows commands. Test Results: Chest x-ray shows a right lower lung cancer with pleural effusion similar to prior. Sinus rhythm rate of 96 with no signs of [place] or ischemia. No change from prior from earlier this year. CBC shows a chronic anemia with a hemoglobin of 10 which is her baseline. Electrolytes show renal failure with a creatinine of 7. But a normal potassium. Troponin is normal. Emergency Department Course and Treatment: Middle-aged female with chest pain during dialysis. Is not reproducible. She will undergo cardiac evaluation. Treatment Plan: Repeat exam she is doing well at 1600. She denies chest with test results. She is being admitted. Disposition: Admission Impression: Acute chest pain uncertain etiology History of end-stage renal disease and dialysis History of cervical CA with mets to lungs. This note was generated with [employer]ark[employer] dictation software. It may contain incorrect words, spelling, and punctuation that were not noted in review of the chart prior to signing ED Disposition - Plan for ED Patient: Referrals: Lawrence Dozier DO [Primary Care Provider] -
[2018-09-25 15:20] LABS: Anion Gap 6 (5-15); BUN 25 mg/dL (7-18); BUN/Creat Ratio 3.5 RATIO (10-20); Calcium,Total 7.2 mg/dL (8.5-10.1); Chloride 97 mmol/L (98-107); Creatinine, Serum 7.08 mg/dL (0.55-1.02); EST Glomerular Filtration Rate 6 mL/min (>60); Est Glom Filt Rate - Afr Amer 8 mL/min (>60); Estimated Creatinine Clearance 7.66 ml/min; Glucose 69 mg/dL (74-106); Potassium 3.8 mmol/L (3.5-5.1); Sodium Level 136 mmol/L (136-145)
[2018-09-25] MEDS: Ondansetron 4 MG/2 ML Vial IV ×2 (15:44→22:01)
[2018-09-25 15:54] LABS: Absolute Lymphocyte Count 1.09 X10^3/uL (0.83-4.51); Absolute Neutrophil Count 3.4 X10^3/uL (2.0-7.7); Basophil# 0.02 X10^3/uL; Basophil% 0.4 % (0-1); Eosinophil# 0.13 X10^3/uL; Eosinophils% 2.7 % (0-5); Hematocrit 36.9 % (37-47); Hemoglobin 10.6 g/dL (12.0-15.0); Lymphocyte # 1.09 X10^3/ul (4.0); Lymphocyte % 22.8 % (19-41); Mean Corp Hgb Conc 28.7 g/dL (32-36); Mean Corpuscular Hgb 23.5 pg (27.0-32.0); Mean Corpuscular Volume 81.8 fL (81-99); Mean Platelet Vol. 10.1 fl (6.2-12.0); Monocyte# 0.13 X10^3/uL; Monocyte% 2.7 % (0-10); NRBC Flagged by Analyzer 0 % (0-5); Neutrophil # 3.37 X10^3/uL (2.7-7.7); Neutrophil % 70.6 % (47-70); Platelet Count 159 K/mm3 (150-450); RBC Distribution Width CV 18.1 % (11.6-14.6); RBC Distribution Width SD 53.3 fl (35.1-43.9); Red Blood Count 4.51 M/mm3 (4.2-5.4); White Blood Count 4.8 K/mm3 (4.4-11.0)
--- NOTE | 2018-09-25 16:22 | HP.PCM_ITS ---
<Lisa Plummer - Last Filed: 09/25/18 16:59> Problem List (1) Anemia of chronic renal failure Status: Chronic (2) End-stage renal disease on hemodialysis Status: Chronic (3) Endometrial cancer Status: Chronic Comment: Status post hysterectomy, cystectomy and partial colectomy due to metastatic disease (4) History of colostomy Status: Chronic (5) History of hysterectomy for cancer Status: Chronic (6) History of ileal conduit Status: Chronic (7) History of nephrectomy Status: Chronic (8) Hypertension Status: Chronic (9) Obesity (BMI 30-39.9) Status: Chronic History of Present Illness Date of Admission: 09/25/18 Chief Complaint: Chest pain. The patient is a 58 year old F who presents emergency room due to chest pain while receiving dialysis today. Patient reports she developed chest pressure 1-2 hours into dialysis and describes associated shortness of breath, nausea and lightheadedness. She states she has had poor appetite and intermittent nausea and vomiting for the past several weeks. She currently undergoes chemotherapy on Fridays for metastatic endometrial cancer. She denies any prior cardiac history. Her chest pressure symptoms have resolved upon arriving to the emergency room. She continues to have nausea with emesis during assessment in ER. She denies history of chest pressure during prior dialysis treatments. 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 Past Medical History Past Medical History (Chronic Problems): Chronic Problems Endometrial cancer (Chronic) Status post hysterectomy, cystectomy and partial colectomy due to metastatic disease End-stage renal disease on hemodialysis (Chronic) History of hysterectomy for cancer (Chronic) History of nephrectomy (Chronic) Anemia of chronic renal failure (Chronic) Hypertension (Chronic) Obesity (BMI 30-39.9) (Chronic) History of colostomy (Chronic) History of ileal conduit (Chronic) Allergies No Known Allergies Allergy (Verified 09/25/18 14:26) Home Medications: Ambulatory Orders Medication Instructions Recorded Folic Acid 1 mg PO DAILY@0800 07/23/14 Ondansetron [Zofran] 8 mg PO Q8H PRN PRN 06/07/17 Famotidine [Pepcid] 20 mg PO BID PRN 06/13/18 Acetaminophen 325 mg PO DAILY PRN PRN 09/25/18 Amlodipine Besylate 10 mg PO DAILY 09/25/18 Chemotherapy FR 09/25/18 Hydrocodone Bit/Homatrop Me-Br 1 ea PO 4X/DAY 09/25/18 [Hydrocodone-Homatropine 5-1.5] Metoprolol Tartrate 25 mg PO BID 09/25/18 Sucroferric Oxyhydroxide [Velphoro] 2 tab PO TID 09/25/18 Vitamin B Complex [B Complex] 1 tab PO DAILY 09/25/18 Surgical History: hysterectomy - for cervical cancer, - - Left nephrectomy for cancer with rt ileoconduit, Colostomy, Hysterectomy with BL RAHEEL, AVF RUE. 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 Maternal History Items: - - Denies known maternal medical history including cardiac history. Review of Systems Constitutional: Reports: Weight Change - weight loss, poor oral intake.. Denies: Chills, Fever HEENT: Denies: Head Aches, Sinus Congestion, Sinus Drainage Cardiovascular: Reports: Chest Pain, Edema, Light Headedness. Denies: Palpitations, Syncope Respiratory: Reports: Cough. Denies: Shortness of Breath, Sputum production, Wheezing Gastrointestinal: Reports: Nausea, Vomiting. Denies: Abdominal Pain Genitourinary: Denies: Dysuria Musculoskeletal: Denies: Joint Pain, Joint Tenderness Skin: Denies: Rash, Wounds Neurological: Denies: Numbness, Tingling, Focal weakness Psychiatric: Denies: Anxiety, Depression, Homicidal Ideations, Suicidal Ideations Hematologic/ Lymphatic: Denies: Easy Bruising, Easy Bleeding VTE Information - Inpt Only VTE Present on Admission: No VTE Mechan Device Prophylaxis: None VTE Pharm Prophylaxis ordered?: Yes - Physical Exam General: Alert, Oriented x3, Cooperative HEENT: Atraumatic, PERRLA, EOMI, Normocephalic Oral: Dry Mucosa Neck: Supple, No JVD, Negative Carotid Bruits Lungs: Clear to auscultation, Diminished Cardiovascular: Regular rate, Regular Rhythm, Normal S1, Normal S2, No murmurs Abdomen: Bowel Sounds Present, Soft, Non Tender, Non-Distended Extremities: No clubbing, No cyanosis, Capillary Refill Less than 3 Seconds, Edema - +3 BLLE edema. RUE edema., - - RUE fistula Skin: No rashes, No breakdown Musculoskeletal: No Tenderness to Palpation of Joints or Extremities, Cachexia Neurological: Cranial nerves II-XII grossly intact, Neuro grossly intact Psych/Mental Status: Normal Affect, Appropriate Vital Signs Temp Pulse Resp BP Pulse Ox 97.8 F 90 13 128/63 H 100 09/25/18 14:21 09/25/18 15:24 09/25/18 15:24 09/25/18 14:21 09/25/18 15:24 Oxygen Flow Rate (L/min) 2 Oxygen Delivery Method Room Air Weight: 137 lb Body Mass Index (BMI) 23.5 Laboratory Tests Past 24 Hrs 09/25/18 09/25/18 09/25/18 14:50 14:50 15:30 WBC Cancelled 4.8 Corrected WBC Cancelled RBC Cancelled 4.51 Hgb Cancelled 10.6 L Hct Cancelled 36.9 L MCV Cancelled 81.8 MCH Cancelled 23.5 L MCHC Cancelled 28.7 L RDW Std Deviation Cancelled 53.3 H RDW Coeff of Riya Cancelled 18.1 H Plt Count Cancelled 159 MPV Cancelled 10.1 Immature Gran % (Auto) Cancelled 0.800 Neut % (Auto) Cancelled 70.6 H Lymph % (Auto) Cancelled 22.8 [place] % (Auto) Cancelled 2.7 Eos % (Auto) Cancelled 2.7 Baso % (Auto) Cancelled 0.4 Absolute Neuts (auto) Cancelled 3.4 Absolute Lymphs (auto) Cancelled 1.09 Total Counted Cancelled Neutrophils % (Manual) Cancelled Band Neutrophils % Cancelled Lymphocytes % (Manual) Cancelled Monocytes % (Manual) Cancelled Eosinophils % (Manual) Cancelled Basophils % (Manual) Cancelled Metamyelocytes % Cancelled Myelocytes % Cancelled Promyelocytes % Cancelled Blast Cells % Cancelled Plasma Cell % (Manual) Cancelled Other Cells % Cancelled Nucleated RBC % Cancelled 0 Nucleated RBCs/100 WBC Cancelled Differential Comment Cancelled Diff Path Review Cancelled Hypersegmented Neuts Cancelled Atypical Lymphocytes Cancelled Reactive Lymphocytes Cancelled Smudge Cells Cancelled Toxic Granulation Cancelled Toxic Vacuolation Cancelled Dohle Bodies Cancelled Radha Rods Cancelled Platelet Estimate Cancelled Plt Morphology Comment Cancelled RBC Morphology Cancelled Polychromasia Cancelled Hypochromasia Cancelled Poikilocytosis Cancelled Basophilic Stippling Cancelled Anisocytosis Cancelled Microcytosis Cancelled Macrocytosis Cancelled Spherocytes Cancelled Sickle Cells Cancelled Target Cells Cancelled Tear Drop Cells Cancelled Ovalocytes Cancelled Stomatocytes Cancelled [place] Bodies Cancelled Hinkle Cells Cancelled Bite Cells Cancelled Crenated Cell Cancelled Acanthocytes (Spur) Cancelled Rouleaux Cancelled Schistocytes Cancelled Sodium 136 Potassium 3.8 Chloride 97 L Carbon Dioxide 33.0 H Anion Gap 6 BUN 25 H Creatinine 7.08 H Estim Creat Clear Calc 7.66 Est GFR (MDRD) Af Amer 8 L Est GFR (MDRD) Non-Af 6 L BUN/Creatinine Ratio 3.5 L Glucose 69 L Calcium 7.2 L Troponin I < 0.015 Assessment/Plan 1. Chest pain, rule out ACS- initial troponin negative. EKG without ST-T changes. CXR on admission with increasing infiltration in the right lung with a small right pleural effusion. Will order stress test for a.m. 2. End-stage renal disease on hemodialysis-dialysis schedule Sunday, , Sunday. Follows with [place] [facility]. Consult nephrology. 3. 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 Status post ileostomy and colostomy. Patient has chemotherapy every Sunday. Status post left nephrectomy. Continue outpatient follow-up with oncology. 4. Hypertension-continue home metoprolol, amlodipine regimen. 5. Anemia of chronic disease-stable, trend CBC. 6. Moderate protein calorie malnutrition-as evidenced by poor oral intake, recent weight loss and cachectic appearance. DVT prophylaxis- heparin sc CODE STATUS: Discussed CODE STATUS with patient and she states she has not thought of this before. She would like to think about it further before making a decision. This patient was seen by KVNG Krause under the supervision of Dr. Ag. <Arlene Ag - Last Filed: 09/25/18 17:13> History of Present Illness The patient is a 58 year old F [] Past Medical History Allergies No Known Allergies Allergy (Verified 09/25/18 14:26) - Physical Exam Vital Signs Temp Pulse Resp BP Pulse Ox 98.9 F 85 12 120/67 100 09/25/18 16:49 09/25/18 16:49 09/25/18 16:49 09/25/18 16:49 09/25/18 16:49 Oxygen Flow Rate (L/min) 2 Oxygen Delivery Method Room Air Weight: 141 lb 5.061 oz Body Mass Index (BMI) 25.8 Laboratory Tests Past 24 Hrs 09/25/18 09/25/18 09/25/18 14:50 14:50 15:30 WBC Cancelled 4.8 Corrected WBC Cancelled RBC Cancelled 4.51 Hgb Cancelled 10.6 L Hct Cancelled 36.9 L MCV Cancelled 81.8 MCH Cancelled 23.5 L MCHC Cancelled 28.7 L RDW Std Deviation Cancelled 53.3 H RDW Coeff of Riya Cancelled 18.1 H Plt Count Cancelled 159 MPV Cancelled 10.1 Immature Gran % (Auto) Cancelled 0.800 Neut % (Auto) Cancelled 70.6 H Lymph % (Auto) Cancelled 22.8 [place] % (Auto) Cancelled 2.7 Eos % (Auto) Cancelled 2.7 Baso % (Auto) Cancelled 0.4 Absolute Neuts (auto) Cancelled 3.4 Absolute Lymphs (auto) Cancelled 1.09 Total Counted Cancelled Neutrophils % (Manual) Cancelled Band Neutrophils % Cancelled Lymphocytes % (Manual) Cancelled Monocytes % (Manual) Cancelled Eosinophils % (Manual) Cancelled Basophils % (Manual) Cancelled Metamyelocytes % Cancelled Myelocytes % Cancelled Promyelocytes % Cancelled Blast Cells % Cancelled Plasma Cell % (Manual) Cancelled Other Cells % Cancelled Nucleated RBC % Cancelled 0 Nucleated RBCs/100 WBC Cancelled Differential Comment Cancelled Diff Path Review Cancelled Hypersegmented Neuts Cancelled Atypical Lymphocytes Cancelled Reactive Lymphocytes Cancelled Smudge Cells Cancelled Toxic Granulation Cancelled Toxic Vacuolation Cancelled Dohle Bodies Cancelled Radha Rods Cancelled Platelet Estimate Cancelled Plt Morphology Comment Cancelled RBC Morphology Cancelled Polychromasia Cancelled Hypochromasia Cancelled Poikilocytosis Cancelled Basophilic Stippling Cancelled Anisocytosis Cancelled Microcytosis Cancelled Macrocytosis Cancelled Spherocytes Cancelled Sickle Cells Cancelled Target Cells Cancelled Tear Drop Cells Cancelled Ovalocytes Cancelled Stomatocytes Cancelled [place] Bodies Cancelled Hinkle Cells Cancelled Bite Cells Cancelled Crenated Cell Cancelled Acanthocytes (Spur) Cancelled Rouleaux Cancelled Schistocytes Cancelled Sodium 136 Potassium 3.8 Chloride 97 L Carbon Dioxide 33.0 H Anion Gap 6 BUN 25 H Creatinine 7.08 H Estim Creat Clear Calc 7.66 Est GFR (MDRD) Af Amer 8 L Est GFR (MDRD) Non-Af 6 L BUN/Creatinine Ratio 3.5 L Glucose 69 L Calcium 7.2 L Troponin I < 0.015 Assessment/Plan Patient seen by Lisa CALDERON under my supervision Patient is a 58 y/o female with an extensive PMH as listed. She was admitted through the ED on 09/25/18 with a complaint of chest pain. Patient was at her dialysis unit having dialysis when he started having pressure-like retrosternal pain which had no aggravating or relieving factors. She said pain was quite severe. Started about 1 to 2 hours into dialysis and she did not complete her dialysis session. She had a stiff shortness of breath, nausea and lightheadedness. Review of systems otherwise negative. She has never had any cardiac work-up done in the past. Chest pain had resolved by time she was reviewed in the ED. Vitals were stable in the ED on admission. Initial troponin was negative and labs were significant for creatinine of 7.08 which is due to ESRD. CBC was remarkable for hemoglobin of 10.6 which is chronic. Chest x-ray showed increasing infiltration in the right lung with a small right pleural effusion and blunting of left costophrenic angle. She has been admitted to be managed for chest pain to rule out ACS. o/e: Vital Signs Height 5 ft 2 in Weight: 141 lb 5.061 oz Weight in Pounds 141.3 lbs Pulse Ox 100 Temperature 98.9 F Pulse Rate 85 Respiratory Rate 12 Blood Pressure 120/67 Blood Pressure Position Semi-Fowlers General: Alert, Oriented x3, Cooperative, looks very frail and debilitated HEENT: Atraumatic, PERRLA, EOMI, Normocephalic Oral: Dry Mucosa Neck: Supple, No JVD, Negative Carotid Bruits Lungs: Clear to auscultation, Diminished Cardiovascular: Regular rate, Regular Rhythm, Normal S1, Normal S2, No murmurs Abdomen: Bowel Sounds Present, Soft, Non Tender, Non-Distended Extremities: No clubbing, No cyanosis, Capillary Refill Less than 3 Seconds, Edema - +3 BLLE edema. RUE 2+ pitting edema., - - RUE fistula Skin: No rashes, No breakdown Musculoskeletal: No Tenderness to Palpation of Joints or Extremities, Cachexia Neurological: Cranial nerves II-XII grossly intact, Neuro grossly intact Psych/Mental Status: Normal Affect, Appropriate Plan is to admit to PCU with telemetry. Cycle troponins. For stress test tomorrow if troponins remain negative. Chest x-ray shows increasing nodular densities in the right lung with a right small pleural effusion. This is likely due to the lung metastasis from endometrial cancer for which she is receiving chemotherapy and goes every Sunday. No indication for antibiotics for now as I do not think there is any infective process underlying this. Rest of management as per Lisa Plummer SUPERVISOR LACE TEARING-C's note, which I have reviewed and endorsed. Code Visit OBSV E&M: 54726 Initial observation care L3
--- NOTE | 2018-09-25 17:24 | EKG12_ITS ---
Test Reason : CP ADMISSION Blood Pressure : / mmHG Vent. Rate : 087 BPM Atrial Rate : 087 BPM P-R Int : 182 ms QRS Dur : 082 ms QT Int : 290 ms P-R-T Axes : 034 068 238 degrees QTc Int : 348 ms Normal sinus rhythm Low voltage QRS Nonspecific T wave abnormality Abnormal ECG Confirmed by NEHA FARIAS, AYLEEN ([id number]), senior technical editor FAISAL CLEMENTE ([id number] on 09/27/2018 9:06:10 AM Referred By: Arlene Ag Confirmed By:AYLEEN SOLOMON MD
--- NOTE | 2018-09-25 19:36 | DIALYSIS ---
Dialysis: called in to pull needles from [facility] site. [place] removed intact. Hemostasis x 15min per site. gauze/tape applied. Pt has large fluid like edema below access site with 2+ edema extending down the arm and hand. Pt reports she believes has been that way for a couple days. She does not recall having any access infiltration or history of swelling to this extremity. Primary RN days/nights aware and viewed this with shift change report at bedside.
[2018-09-25] MEDS: Morphine 2 MG/ML Syringe IV (22:01)
[2018-09-25] MEDS: Metoprolol Tartrate 25 MG Tablet PO (23:21)
[2018-09-25] MEDS: Heparin Injection (Vial) 5,000 UNIT/ML VIAL 5000 UNIT SC (23:22)
[2018-09-26 02:56] VITALS: PULSE 65
[2018-09-26 04:50] VITALS: BP 133/66; PULSE 69; RESP 16; TEMP 36.7; O2SAT 96
[2018-09-26 05:57] LABS: Absolute Lymphocyte Count 1.29 X10^3/uL (0.83-4.51); Absolute Neutrophil Count 3.3 X10^3/uL (2.0-7.7); Basophil# 0.02 X10^3/uL; Basophil% 0.4 % (0-1); Eosinophil# 0.04 X10^3/uL; Eosinophils% 0.8 % (0-5); Hematocrit 32.1 % (37-47); Hemoglobin 8.9 g/dL (12.0-15.0); Lymphocyte # 1.29 X10^3/ul (4.0); Lymphocyte % 26.2 % (19-41); Mean Corp Hgb Conc 27.7 g/dL (32-36); Mean Corpuscular Volume 82.9 fL (81-99); Mean Platelet Vol. 10.3 fl (6.2-12.0); Monocyte# 0.27 X10^3/uL; Monocyte% 5.5 % (0-10); NRBC Flagged by Analyzer 0 % (0-5); Neutrophil # 3.26 X10^3/uL (2.7-7.7); Neutrophil % 66.3 % (47-70); Platelet Count 101 K/mm3 (150-450); RBC Distribution Width CV 17.9 % (11.6-14.6); RBC Distribution Width SD 53.5 fl (35.1-43.9); Red Blood Count 3.87 M/mm3 (4.2-5.4); White Blood Count 4.9 K/mm3 (4.4-11.0)
[2018-09-26 06:34] LABS: Anion Gap 11 (5-15); BUN 34 mg/dL (7-18); BUN/Creat Ratio 3.9 RATIO (10-20); Calcium,Total 7.1 mg/dL (8.5-10.1); Chloride 97 mmol/L (98-107); Cholesterol 253 mg/dL (200); Creatinine, Serum 8.72 mg/dL (0.55-1.02); EST Glomerular Filtration Rate 5 mL/min (>60); Est Glom Filt Rate - Afr Amer 6 mL/min (>60); Glucose 57 mg/dL (74-106); High Density Lipoprotein 12 mg/dL; Potassium 3.4 mmol/L (3.5-5.1); Sodium Level 140 mmol/L (136-145); Triglycerides 619 mg/dL
[2018-09-26] MEDS: Ondansetron 4 MG/2 ML Vial IV (09:02)
[2018-09-26] MEDS: 0.9% NaCl Peripheral Flush Adult/Peds IV (09:02)
[2018-09-26] MEDS: Morphine 2 MG/ML Syringe IV (09:09)
[2018-09-26 09:30] VITALS: PULSE 71
--- NOTE | 2018-09-26 09:49 | STRESSREP ---
Stress Test Report Date: 09-26-18 Procedure: Pharmacologic stress nuclear imaging study Indications: Chest discomfort; shortness of breath/dyspnea Consent: Per the patient Procedure: The patient underwent pharmacologic (Regadenoson) evaluation with a peak heart rate of 77 beats per minute (46 %predicted maximal heart rate) and a peak blood pressure of 149/65 mmHg. The baseline ECG demonstrated normal sinus rhythm; nonspecific ST/T wave abnormality. The peak pharmacologic ECG demonstrated continued nonspecific ST/T wave abnormality. There were no cardiac dysrhythmias pretest, during pharmacologic infusion, or recovery. There was no complaint of chest discomfort during pharmacologic infusion or recovery. The examination was discontinued secondary to completion of protocol. Impression: 1. Pharmacologic (Regadenoson) evaluation 2. Peak pharmacologic ECG with continued nonspecific ST/T wave abnormality. 3. There were no cardiac dysrhythmias pretest, during pharmacologic infusion, or recovery. 4. Nuclear images pending Myocardial perfusion imaging study: Technique: The patient was injected with 10.0 millicuries of technetium 99m Cardiolite and subsequently rest SPECT Cardiolite nuclear imaging was obtained in the horizontal long, vertical long, and short axis views. The patient underwent pharmacologic (Regadenoson) evaluation with a peak heart rate of 77 beats per minute (46 % percent predicted maximal heart rate) and a peak blood pressure of 149/65 mmHg. The patient was injected with 36.0 millicuries of technetium 99m Cardiolite and subsequently stress SPECT Cardiolite nuclear imaging was obtained in the horizontal long, vertical long, and short axis views. A gated Cardiolite study at peak stress was obtained. Interpretation: Rest and stress SPECT Cardiolite nuclear imaging status post realignment, normalization, and attenuation correction demonstrate relative uniform tracer uptake and myocardial perfusion appearing within normal limits. There is end systolic thickening and brightening. The gated Cardiolite study demonstrates myocardial thickening and inward wall motion. The reported LVEF is 42 %. Impression: 1. Rest and stress SPECT Cardiolite nuclear imaging demonstrate relative uniform tracer uptake and myocardial perfusion appearing within normal limits. 2. The gated Cardiolite study reports an LVEF of 42 %. This note was generated with [employer] software. It may contain incorrect words, spelling, and punctuation that were not noted in checking the note before signing.
--- NOTE | 2018-09-26 10:44 | DCINST_ITS ---
You will use the following diet at home:: Cardiac, Renal (restricted protein/sodium) Your food should be the consistency of: Regular Your liquids should be the consistency of: Regular/Thin Discharge Activity: Return to Normal Activity Allergies/Adverse Reactions: Allergies No Known Allergies Allergy (Verified 09/25/18 14:26) Medications to take at Discharge Folic Acid 1 mg PO DAILY@0800 07/23/14 Ondansetron [Zofran] 8 mg PO Q8H PRN PRN 06/07/17 Famotidine [Pepcid] 20 mg PO BID PRN 06/13/18 Acetaminophen 325 mg PO DAILY PRN PRN 09/25/18 Amlodipine Besylate 10 mg PO DAILY 09/25/18 Chemotherapy FR 09/25/18 Hydrocodone Bit/Homatrop Me-Br [Hydrocodone-Homatropine 5-1.5] 1 ea PO 4X/DAY 09/25/18 Metoprolol Tartrate 25 mg PO BID 09/25/18 Sucroferric Oxyhydroxide [Velphoro] 2 tab PO TID 09/25/18 Vitamin B Complex [B Complex] 1 tab PO DAILY 09/25/18 Primary Care Physician: Lawrence Dozier DO [Primary Care Provider] - Please follow up with your Primary Care Physician in: 1-2 weeks Test Results: Test results from this visit will be discussed in further detail at your follow- up appointment, if applicable. Please Follow Up With: [facility] When: As directed Proposed Discharge Date: 09/26/18
--- NOTE | 2018-09-26 10:44 | CASEMGMT ---
Pt normally has dialysis T,,S at 1140 at [facility]. Pt missed dialysis on sunday and had gone yesterday to catch up but only got about 15min done and then she had CP and came to hospital. Call to [facility] and they state that pt can still come today at her scheduled time. Shaunna LEON and Kelsie CABA aware, voice understanding. Per Teressa, pt's is on the way to pick her up and discharge is being placed in the computer at this time. Marcelino at [facility] aware that pt will be coming and states 'we will make it work.' Pt is aware of all at this time, voices understanding. Valeri CABA CM
[2018-09-26 11:10] VITALS: BP 146/68; PULSE 70; RESP 16; TEMP 36.5; O2SAT 100
--- NOTE | 2018-09-26 13:28 | PCM.DC.SUM ---
<Omer Pierre - Last Filed: 09/26/18 13:28> Discharge Date and Diagnosis Date of Admission: 09/25/18 Date of Discharge: 09/26/18 - Primary Discharge Diagnosis Chest pain-musculoskeletal History of end-stage renal disease History of endometrial cancer Hypertension Hyperlipidemia - Secondary Discharge Diagnosis Chronic Problems Endometrial cancer (Chronic) Status post hysterectomy, cystectomy and partial colectomy due to metastatic disease End-stage renal disease on hemodialysis (Chronic) History of hysterectomy for cancer (Chronic) History of nephrectomy (Chronic) Anemia of chronic renal failure (Chronic) Hypertension (Chronic) Obesity (BMI 30-39.9) (Chronic) History of colostomy (Chronic) History of ileal conduit (Chronic) Hospital Course and Treatment Imaging Results: 09/26/18 05:55 Nuclear Stress Test - Chemical [NM] AM (NON MEDS) Impression: 1. Rest and stress SPECT Cardiolite nuclear imaging demonstrate relative uniform tracer uptake and myocardial perfusion appearing within normal limits. 2. The gated Cardiolite study reports an LVEF of 42 %. RAD/Chest 1 View (Portable) IMPRESSION: Increasing infiltration in the right lung with a small right pleural effusion. Blunting of left costophrenic angle. Operations: None Procedures: Stress test Summary of Care Provided: Hospital course: The patient is a 58 year old F with past medical history as above who presented to the emergency room with complaints of chest pain. This was described the pressure that developed 1 to 2 hours into her dialysis session with some shortness of breath, nausea, and lightheadedness. She also had some associated nausea and vomiting. She is currently undergoing chemotherapy for metastatic endometrial cancer. She is no history of cardiac disease. In the emergency room she had a negative troponin, negative chest x-ray, negative EKG. She was admitted to the PCU for chest pain work-up. She is placed on telemetry and had no events overnight. Troponin was negative x3. She underwent a stress test the following morning which was negative. He was felt that her chest pain was likely musculoskeletal and she was discharged home in stable condition. She will need to follow-up with her PCP in 1 to 2 weeks, nephrology as directed, and oncology as directed. This patient was seen by Omer Pierre PA-C under the supervision of Doctor Lopes. [] - Physical Exam General: Alert, Oriented x3, Cooperative HEENT: Atraumatic, PERRLA, EOMI, Normocephalic Neck: Supple, No JVD, Negative Carotid Bruits Lungs: Clear to auscultation, Normal air movement Cardiovascular: Regular rate, No murmurs Abdomen: Bowel Sounds Present, Soft, Non Tender Extremities: No edema, Capillary Refill Less than 3 Seconds Skin: No rashes, No breakdown Musculoskeletal: No Tenderness to Palpation of Joints or Extremities Neurological: Cranial nerves II-XII grossly intact Psych/Mental Status: Normal Affect, Appropriate Vital Signs Temp Pulse Resp BP Pulse Ox 97.7 F L 70 16 146/68 H 100 09/26/18 11:10 09/26/18 11:10 09/26/18 11:10 09/26/18 11:10 09/26/18 11:10 Oxygen Flow Rate (L/min) 2 Oxygen Delivery Method Nasal Cannula Weight: 140 lb 10.479 oz Body Mass Index (BMI) 25.8 Intake and Output for Last 24 Hours 09/24/18 09/25/18 09/26/18 23:59 23:59 23:59 Intake Total 220 / 220 0 / 0 Output Total 0 / 0 0 / 0 Balance 220 / 220 0 / 0 Laboratory Tests Past 24 Hrs 09/25/18 09/25/18 09/25/18 14:50 14:50 15:30 WBC Cancelled 4.8 Corrected WBC Cancelled RBC Cancelled 4.51 Hgb Cancelled 10.6 L Hct Cancelled 36.9 L MCV Cancelled 81.8 MCH Cancelled 23.5 L MCHC Cancelled 28.7 L RDW Std Deviation Cancelled 53.3 H RDW Coeff of Riya Cancelled 18.1 H Plt Count Cancelled 159 MPV Cancelled 10.1 Immature Gran % (Auto) Cancelled 0.800 Neut % (Auto) Cancelled 70.6 H Lymph % (Auto) Cancelled 22.8 Kingfisher % (Auto) Cancelled 2.7 Eos % (Auto) Cancelled 2.7 Baso % (Auto) Cancelled 0.4 Absolute Neuts (auto) Cancelled 3.4 Absolute Lymphs (auto) Cancelled 1.09 Total Counted Cancelled Neutrophils % (Manual) Cancelled Band Neutrophils % Cancelled Lymphocytes % (Manual) Cancelled Monocytes % (Manual) Cancelled Eosinophils % (Manual) Cancelled Basophils % (Manual) Cancelled Metamyelocytes % Cancelled Myelocytes % Cancelled Promyelocytes % Cancelled Blast Cells % Cancelled Plasma Cell % (Manual) Cancelled Other Cells % Cancelled Nucleated RBC % Cancelled 0 Nucleated RBCs/100 WBC Cancelled Differential Comment Cancelled Diff Path Review Cancelled Hypersegmented Neuts Cancelled Atypical Lymphocytes Cancelled Reactive Lymphocytes Cancelled Smudge Cells Cancelled Toxic Granulation Cancelled Toxic Vacuolation Cancelled Dohle Bodies Cancelled Radha Rods Cancelled Platelet Estimate Cancelled Plt Morphology Comment Cancelled RBC Morphology Cancelled Polychromasia Cancelled Hypochromasia Cancelled Poikilocytosis Cancelled Basophilic Stippling Cancelled Anisocytosis Cancelled Microcytosis Cancelled Macrocytosis Cancelled Spherocytes Cancelled Sickle Cells Cancelled Target Cells Cancelled Tear Drop Cells Cancelled Ovalocytes Cancelled Stomatocytes Cancelled Jerez-Wolfforth Bodies Cancelled Alana Cells Cancelled Bite Cells Cancelled Crenated Cell Cancelled Acanthocytes (Spur) Cancelled Rouleaux Cancelled Schistocytes Cancelled Sodium 136 Potassium 3.8 Chloride 97 L Carbon Dioxide 33.0 H Anion Gap 6 BUN 25 H Creatinine 7.08 H Estim Creat Clear Calc 7.66 Est GFR (MDRD) Af Amer 8 L Est GFR (MDRD) Non-Af 6 L BUN/Creatinine Ratio 3.5 L Glucose 69 L Calcium 7.2 L Troponin I < 0.015 Triglycerides Cholesterol LDL Cholesterol VLDL Cholesterol HDL Cholesterol 09/25/18 09/25/18 09/26/18 17:45 21:00 05:10 WBC 4.9 Corrected WBC RBC 3.87 L Hgb 8.9 L Hct 32.1 L MCV 82.9 MCH 23.0 L MCHC 27.7 L RDW Std Deviation 53.5 H RDW Coeff of Riya 17.9 H Plt Count 101 L MPV 10.3 Immature Gran % (Auto) 0.800 Neut % (Auto) 66.3 Lymph % (Auto) 26.2 Kingfisher % (Auto) 5.5 Eos % (Auto) 0.8 Baso % (Auto) 0.4 Absolute Neuts (auto) 3.3 Absolute Lymphs (auto) 1.29 Total Counted Neutrophils % (Manual) Band Neutrophils % Lymphocytes % (Manual) Monocytes % (Manual) Eosinophils % (Manual) Basophils % (Manual) Metamyelocytes % Myelocytes % Promyelocytes % Blast Cells % Plasma Cell % (Manual) Other Cells % Nucleated RBC % 0 Nucleated RBCs/100 WBC Differential Comment Diff Path Review Hypersegmented Neuts Atypical Lymphocytes Reactive Lymphocytes Smudge Cells Toxic Granulation Toxic Vacuolation Dohle Bodies Radha Rods Platelet Estimate Plt Morphology Comment RBC Morphology Polychromasia Hypochromasia Poikilocytosis Basophilic Stippling Anisocytosis Microcytosis Macrocytosis Spherocytes Sickle Cells Target Cells Tear Drop Cells Ovalocytes Stomatocytes Jerez-Wolfforth Bodies Sopchoppy Cells Bite Cells Crenated Cell Acanthocytes (Spur) Rouleaux Schistocytes Sodium Potassium Chloride Carbon Dioxide Anion Gap BUN Creatinine Estim Creat Clear Calc Est GFR (MDRD) Af Amer Est GFR (MDRD) Non-Af BUN/Creatinine Ratio Glucose Calcium Troponin I < 0.015 < 0.015 Triglycerides Cholesterol LDL Cholesterol VLDL Cholesterol HDL Cholesterol 09/26/18 05:10 WBC Corrected WBC RBC Hgb Hct MCV MCH MCHC RDW Std Deviation RDW Coeff of Riya Plt Count MPV Immature Gran % (Auto) Neut % (Auto) Lymph % (Auto) Kingfisher % (Auto) Eos % (Auto) Baso % (Auto) Absolute Neuts (auto) Absolute Lymphs (auto) Total Counted Neutrophils % (Manual) Band Neutrophils % Lymphocytes % (Manual) Monocytes % (Manual) Eosinophils % (Manual) Basophils % (Manual) Metamyelocytes % Myelocytes % Promyelocytes % Blast Cells % Plasma Cell % (Manual) Other Cells % Nucleated RBC % Nucleated RBCs/100 WBC Differential Comment Diff Path Review Hypersegmented Neuts Atypical Lymphocytes Reactive Lymphocytes Smudge Cells Toxic Granulation Toxic Vacuolation Dohle Bodies Radha Rods Platelet Estimate Plt Morphology Comment RBC Morphology Polychromasia Hypochromasia Poikilocytosis Basophilic Stippling Anisocytosis Microcytosis Macrocytosis Spherocytes Sickle Cells Target Cells Tear Drop Cells Ovalocytes Stomatocytes Jerez-Wolfforth Bodies Alana Cells Bite Cells Crenated Cell Acanthocytes (Spur) Rouleaux Schistocytes Sodium 140 Potassium 3.4 L Chloride 97 L Carbon Dioxide 32.0 Anion Gap 11 BUN 34 H Creatinine 8.72 H* Estim Creat Clear Calc 5.70 Est GFR (MDRD) Af Amer 6 L Est GFR (MDRD) Non-Af 5 L BUN/Creatinine Ratio 3.9 L Glucose 57 L Calcium 7.1 L Troponin I Triglycerides 619 H Cholesterol 253 H LDL Cholesterol TNP VLDL Cholesterol TNP HDL Cholesterol 12 L Discharge Diet: Renal Diet Discharge Activity: Return to Normal Activity Home Medications: Medications to take at Discharge Folic Acid 1 mg PO DAILY@0800 07/23/14 Ondansetron [Zofran] 8 mg PO Q8H PRN PRN 06/07/17 Famotidine [Pepcid] 20 mg PO BID PRN 06/13/18 Acetaminophen 325 mg PO DAILY PRN PRN 09/25/18 Amlodipine Besylate 10 mg PO DAILY 09/25/18 Chemotherapy FR 09/25/18 Hydrocodone Bit/Homatrop Me-Br [Hydrocodone-Homatropine 5-1.5] 1 ea PO 4X/DAY 09/25/18 Metoprolol Tartrate 25 mg PO BID 09/25/18 Sucroferric Oxyhydroxide [Velphoro] 2 tab PO TID 09/25/18 Vitamin B Complex [B Complex] 1 tab PO DAILY 09/25/18 Primary Care Physician: Lawrence Dozier DO [Primary Care Provider] - Please follow up with your Primary Care Physician in: 1-2 weeks Please Follow Up With: [facility] When: As directed Please Follow Up With: Oncology When: as directed Disposition: Home Minutes spent on discharge:: 35 Patient Condition:: Stable Medical Necessity - Tobacco Use Smoking Status: Former smoker Tobacco Use: Cigarettes Meaningful Use Info Meaningful Use Diagnoses (Choose all that apply): None applicable <Filemon Lopes F - Last Filed: 09/26/18 15:05> Discharge Date and Diagnosis - Secondary Discharge Diagnosis Chronic Problems Endometrial cancer (Chronic) Status post hysterectomy, cystectomy and partial colectomy due to metastatic disease End-stage renal disease on hemodialysis (Chronic) History of hysterectomy for cancer (Chronic) History of nephrectomy (Chronic) Anemia of chronic renal failure (Chronic) Hypertension (Chronic) Obesity (BMI 30-39.9) (Chronic) History of colostomy (Chronic) History of ileal conduit (Chronic) Hospital Course and Treatment Summary of Care Provided: The patient is a 58 year old F [] - Physical Exam Vital Signs Temp Pulse Resp BP Pulse Ox 97.7 F L 70 16 146/68 H 100 09/26/18 11:10 09/26/18 11:10 09/26/18 11:10 09/26/18 11:10 09/26/18 11:10 Oxygen Flow Rate (L/min) 2 Oxygen Delivery Method Nasal Cannula Weight: 140 lb 10.479 oz Body Mass Index (BMI) 25.8 Intake and Output for Last 24 Hours 09/24/18 09/25/18 09/26/18 23:59 23:59 23:59 Intake Total 220 / 220 0 / 0 Output Total 0 / 0 0 / 0 Balance 220 / 220 0 / 0 Laboratory Tests Past 24 Hrs 09/25/18 09/25/18 09/25/18 14:50 14:50 15:30 WBC Cancelled 4.8 Corrected WBC Cancelled RBC Cancelled 4.51 Hgb Cancelled 10.6 L Hct Cancelled 36.9 L MCV Cancelled 81.8 MCH Cancelled 23.5 L MCHC Cancelled 28.7 L RDW Std Deviation Cancelled 53.3 H RDW Coeff of Riya Cancelled 18.1 H Plt Count Cancelled 159 MPV Cancelled 10.1 Immature Gran % (Auto) Cancelled 0.800 Neut % (Auto) Cancelled 70.6 H Lymph % (Auto) Cancelled 22.8 Kingfisher % (Auto) Cancelled 2.7 Eos % (Auto) Cancelled 2.7 Baso % (Auto) Cancelled 0.4 Absolute Neuts (auto) Cancelled 3.4 Absolute Lymphs (auto) Cancelled 1.09 Total Counted Cancelled Neutrophils % (Manual) Cancelled Band Neutrophils % Cancelled Lymphocytes % (Manual) Cancelled Monocytes % (Manual) Cancelled Eosinophils % (Manual) Cancelled Basophils % (Manual) Cancelled Metamyelocytes % Cancelled Myelocytes % Cancelled Promyelocytes % Cancelled Blast Cells % Cancelled Plasma Cell % (Manual) Cancelled Other Cells % Cancelled Nucleated RBC % Cancelled 0 Nucleated RBCs/100 WBC Cancelled Differential Comment Cancelled Diff Path Review Cancelled Hypersegmented Neuts Cancelled Atypical Lymphocytes Cancelled Reactive Lymphocytes Cancelled Smudge Cells Cancelled Toxic Granulation Cancelled Toxic Vacuolation Cancelled Dohle Bodies Cancelled Radha Rods Cancelled Platelet Estimate Cancelled Plt Morphology Comment Cancelled RBC Morphology Cancelled Polychromasia Cancelled Hypochromasia Cancelled Poikilocytosis Cancelled Basophilic Stippling Cancelled Anisocytosis Cancelled Microcytosis Cancelled Macrocytosis Cancelled Spherocytes Cancelled Sickle Cells Cancelled Target Cells Cancelled Tear Drop Cells Cancelled Ovalocytes Cancelled Stomatocytes Cancelled Jerez-Wolfforth Bodies Cancelled Alana Cells Cancelled Bite Cells Cancelled Crenated Cell Cancelled Acanthocytes (Spur) Cancelled Rouleaux Cancelled Schistocytes Cancelled Sodium 136 Potassium 3.8 Chloride 97 L Carbon Dioxide 33.0 H Anion Gap 6 BUN 25 H Creatinine 7.08 H Estim Creat Clear Calc 7.66 Est GFR (MDRD) Af Amer 8 L Est GFR (MDRD) Non-Af 6 L BUN/Creatinine Ratio 3.5 L Glucose 69 L Calcium 7.2 L Troponin I < 0.015 Triglycerides Cholesterol LDL Cholesterol VLDL Cholesterol HDL Cholesterol 09/25/18 09/25/18 09/26/18 17:45 21:00 05:10 WBC 4.9 Corrected WBC RBC 3.87 L Hgb 8.9 L Hct 32.1 L MCV 82.9 MCH 23.0 L MCHC 27.7 L RDW Std Deviation 53.5 H RDW Coeff of Riya 17.9 H Plt Count 101 L MPV 10.3 Immature Gran % (Auto) 0.800 Neut % (Auto) 66.3 Lymph % (Auto) 26.2 Kingfisher % (Auto) 5.5 Eos % (Auto) 0.8 Baso % (Auto) 0.4 Absolute Neuts (auto) 3.3 Absolute Lymphs (auto) 1.29 Total Counted Neutrophils % (Manual) Band Neutrophils % Lymphocytes % (Manual) Monocytes % (Manual) Eosinophils % (Manual) Basophils % (Manual) Metamyelocytes % Myelocytes % Promyelocytes % Blast Cells % Plasma Cell % (Manual) Other Cells % Nucleated RBC % 0 Nucleated RBCs/100 WBC Differential Comment Diff Path Review Hypersegmented Neuts Atypical Lymphocytes Reactive Lymphocytes Smudge Cells Toxic Granulation Toxic Vacuolation Dohle Bodies Radha Rods Platelet Estimate Plt Morphology Comment RBC Morphology Polychromasia Hypochromasia Poikilocytosis Basophilic Stippling Anisocytosis Microcytosis Macrocytosis Spherocytes Sickle Cells Target Cells Tear Drop Cells Ovalocytes Stomatocytes Jerez-Wolfforth Bodies Alana Cells Bite Cells Crenated Cell Acanthocytes (Spur) Rouleaux Schistocytes Sodium Potassium Chloride Carbon Dioxide Anion Gap BUN Creatinine Estim Creat Clear Calc Est GFR (MDRD) Af Amer Est GFR (MDRD) Non-Af BUN/Creatinine Ratio Glucose Calcium Troponin I < 0.015 < 0.015 Triglycerides Cholesterol LDL Cholesterol VLDL Cholesterol HDL Cholesterol 09/26/18 05:10 WBC Corrected WBC RBC Hgb Hct MCV MCH MCHC RDW Std Deviation RDW Coeff of Riya Plt Count MPV Immature Gran % (Auto) Neut % (Auto) Lymph % (Auto) Kingfisher % (Auto) Eos % (Auto) Baso % (Auto) Absolute Neuts (auto) Absolute Lymphs (auto) Total Counted Neutrophils % (Manual) Band Neutrophils % Lymphocytes % (Manual) Monocytes % (Manual) Eosinophils % (Manual) Basophils % (Manual) Metamyelocytes % Myelocytes % Promyelocytes % Blast Cells % Plasma Cell % (Manual) Other Cells % Nucleated RBC % Nucleated RBCs/100 WBC Differential Comment Diff Path Review Hypersegmented Neuts Atypical Lymphocytes Reactive Lymphocytes Smudge Cells Toxic Granulation Toxic Vacuolation Dohle Bodies Radha Rods Platelet Estimate Plt Morphology Comment RBC Morphology Polychromasia Hypochromasia Poikilocytosis Basophilic Stippling Anisocytosis Microcytosis Macrocytosis Spherocytes Sickle Cells Target Cells Tear Drop Cells Ovalocytes Stomatocytes Jerez-Wolfforth Bodies Sopchoppy Cells Bite Cells Crenated Cell Acanthocytes (Spur) Rouleaux Schistocytes Sodium 140 Potassium 3.4 L Chloride 97 L Carbon Dioxide 32.0 Anion Gap 11 BUN 34 H Creatinine 8.72 H* Estim Creat Clear Calc 5.70 Est GFR (MDRD) Af Amer 6 L Est GFR (MDRD) Non-Af 5 L BUN/Creatinine Ratio 3.9 L Glucose 57 L Calcium 7.1 L Troponin I Triglycerides 619 H Cholesterol 253 H LDL Cholesterol TNP VLDL Cholesterol TNP HDL Cholesterol 12 L Code Visit Addendum: Dr. Lopes I personally examined the patient and reviewed the chart. I agree with the above. 58-year-old female with end-stage renal disease and stage IV endometrial cancer with metastasis to lung, left kidney and bladder status post hysterectomy, left nephrectomy, colostomy, and urostomy presented with chest pain. It occurred while she was at dialysis yesterday and she did not receive a full dialysis treatment. With the chest pain she had shortness of breath, nausea and lightheadedness. Today she underwent a nuclear stress test which was negative for any ischemia, her EKGs were unremarkable and her troponins were normal. She was discharged to have outpatient dialysis today since her cardiac work-up was essentially unremarkable. OBSV E&M: 11603 Observation care discharge
== END 2018-09-26 10:44 | disposition home or self-care (01) ==
LOC: ED 14:56 → PCU 16:41
PROVIDERS: Nurse Practitioner Family; Admitting Provider Student in an Organized Health Care Education/Training Program; Emergency Provider Emergency Medicine; Family Provider Student in an Organized Health Care Education/Training Program; PCP Student in an Organized Health Care Education/Training Program; Referring Provider Student in an Organized Health Care Education/Training Program; Visit Provider Family Medicine
DX: R07.89 Other chest pain (principal); I12.0 Hypertensive chronic kidney disease with stage 5 chronic kidney disease or end stage renal disease; N18.6 End stage renal disease; Z99.2 Dependence on renal dialysis; D63.1 Anemia in chronic kidney disease; E44.0 Moderate protein-calorie malnutrition; E78.5 Hyperlipidemia, unspecified; Z68.25 Body mass index [BMI] 25.0-25.9, adult; Z87.891 Personal history of nicotine dependence; Z85.41 Personal history of malignant neoplasm of cervix uteri; Z85.118 Personal history of other malignant neoplasm of bronchus and lung; Z79.899 Other long term (current) drug therapy; Z90.5 Acquired absence of kidney
CPT/HCPCS: 36415; 71045; 78452; 80048; 80061; 84484; 85025; 93005; 93017; 96372; 96374; 96375; 96376; 99218; 99285; A9500; A4216; G0378; J2405; J2785

== ENCOUNTER 2018-10-02 17:51 | Inpatient (IN) | payer MEDICARE, SELFPAY ==
[2018-09-25 17:02] VITALS: BMI 25.8
[2018-10-02 17:51] VITALS: BP 116/58; PULSE 95; RESP 16; TEMP 36.6; O2SAT 100; BMI 33.3
--- NOTE | 2018-10-02 17:54 | EKG12_ITS ---
Test Reason : SYNCOPE Blood Pressure : / mmHG Vent. Rate : 094 BPM Atrial Rate : 094 BPM P-R Int : 182 ms QRS Dur : 080 ms QT Int : 310 ms P-R-T Axes : 061 067 253 degrees QTc Int : 387 ms Normal sinus rhythm Low voltage QRS T wave abnormality, consider inferior ischemia Abnormal ECG Confirmed by NISHANT JOYA ([id number]), editor farm journal CALDERON TRIVEDI ([id number]) on 10/03/2018 2:17:38 PM Referred By: Arlene Ag Confirmed By:NISHANT JOYA
--- NOTE | 2018-10-02 19:53 | RAD_ITS ---
STUDY: X-RAY CHEST REASON FOR EXAM: Female, 58 years old. Weakness. Lung cancer. TECHNIQUE: AP portable upright chest radiograph. COMPARISON: 09/25/2018 CXR FINDINGS: Interval increase in large right medial lung opacification. Right-sided volume loss and blunting of the right costophrenic sulcus similar to previous. Mild emphysematous changes left lung, no acute findings left lung. Heart size within normal limits. No apparent pneumothorax. No acute osseous abnormality. No apparent free air under the diaphragm. RAD/Chest 1 View (Portable) IMPRESSION: Interval increase in large right medial lung opacification. This could represent worsening pneumonia, worsening lung cancer, or progression of post radiation pneumonitis if the patient underwent radiation to this area. Electronically Signed: Herman Mays, at 20:10 EDT Tel , Service support ,
--- NOTE | 2018-10-02 19:54 | ED.VISSUMM ---
- ER Visit Summary Date of Service: 10/02/18 Chief Complaint: Multiple complaints History of Present Illness: The patient is a 58 F presenting with multiple complaints. Patient states that she just does not feel well. She states this has been ongoing for approximately one week. She has had decreased appetite and generalized weakness. She states she fell one time. She did not hit her head or lose consciousness. She is not on anticoagulants. She missed her last 2 dialysis treatments due to not feeling well. She is on chemotherapy, her last chemo was 1.5 weeks ago. She has a history of metastatic cervical cancer. She is on home O2 2 L. She denies chest pain or shortness of breath. Denies abdominal pain. She has nausea with no vomiting. She denies fever. Physical Examination: Vitals are stable. Patient is afebrile. Alert no acute distress. HEENT exam is unremarkable. Dry mucous membranes Neck is supple. Lungs are clear and equal bilaterally. Heart is regular rate and rhythm. Abdomen is soft nontender nondistended. Colostomy. Urostomy. Extremities are unremarkable. Skin is warm and dry. No focal neurologic deficit. Remainder of exam is unremarkable. Emergency Department Course and Treatment: EKG is sinus rate of 94 inferior lateral T wave inversion. Chest xray shows Interval increase in large right medial lung opacification. This could represent worsening pneumonia, worsening lung cancer, or progression of post radiation pneumonitis if the patient underwent radiation to this area. CBC shows hemoglobin 10.5, platelet 131. Chemistries show potassium 3.2, BUN 38, creatinine 9.91. Troponin is negative. Patient feels generally weak and does not feel that she will be able to make it to dialysis on her own. Discussed with the hospitalist for admission. Disposition: Admission Impression: Debility, missed dialysis This note was generated with [employer] dictation software. It may contain incorrect words, spelling, and punctuation that were not noted in review of the chart prior to signing ED Disposition - Plan for ED Patient: Referrals: Lawrence Dozier DO [Primary Care Provider] -
[2018-10-02 20:21] VITALS: PULSE 85; RESP 15; TEMP 36.6; O2SAT 100
[2018-10-02] MEDS: Ondansetron 4 MG/2 ML Vial IV (20:21)
[2018-10-02 20:50] LABS: Anion Gap 8 (5-15); BUN 38 mg/dL (7-18); BUN/Creat Ratio 3.8 RATIO (10-20); Calcium,Total 7.8 mg/dL (8.5-10.1); Chloride 98 mmol/L (98-107); Creatinine, Serum 9.91 mg/dL (0.55-1.02); EST Glomerular Filtration Rate 4 mL/min (>60); Est Glom Filt Rate - Afr Amer 5 mL/min (>60); Estimated Creatinine Clearance 5.01 ml/min; Glucose 80 mg/dL (74-106); Potassium 3.2 mmol/L (3.5-5.1); Sodium Level 139 mmol/L (136-145)
--- NOTE | 2018-10-02 20:52 | ED.RN ---
CRITICAL LAB VALUE RECEIVED FROM LAB. CREATININE 9.91. DR. VALLE NOTIFIED.
[2018-10-02 20:54] LABS: Absolute Lymphocyte Count 0.97 X10^3/uL (0.83-4.51); Absolute Neutrophil Count 6.3 X10^3/uL (2.0-7.7); Basophil# 0.01 X10^3/uL; Basophil% 0.1 % (0-1); Eosinophil# 0.01 X10^3/uL; Eosinophils% 0.1 % (0-5); Hematocrit 38.4 % (37-47); Hemoglobin 10.5 g/dL (12.0-15.0); Lymphocyte # 0.97 X10^3/ul (4.0); Lymphocyte % 12.2 % (19-41); Mean Corp Hgb Conc 27.3 g/dL (32-36); Mean Corpuscular Hgb 23.4 pg (27.0-32.0); Mean Corpuscular Volume 85.5 fL (81-99); Mean Platelet Vol. 10.2 fl (6.2-12.0); Monocyte# 0.57 X10^3/uL; Monocyte% 7.2 % (0-10); NRBC Flagged by Analyzer 0 % (0-5); Neutrophil # 6.29 X10^3/uL (2.7-7.7); Neutrophil % 79.3 % (47-70); POSITIVE MORPHOLOGY YES; Platelet Count 131 K/mm3 (150-450); RBC Distribution Width CV 17.8 % (11.6-14.6); Red Blood Count 4.49 M/mm3 (4.2-5.4); White Blood Count 7.9 K/mm3 (4.4-11.0)
[2018-10-02 20:56] LABS: Differential Indicated SCAN CRITERIA MET
[2018-10-02 21:17] VITALS: PULSE 91; RESP 20
[2018-10-02] MEDS: proMETHazine 25 MG/ML Syringe 6.25 MG IV (21:33)
--- NOTE | 2018-10-02 21:52 | HP.PCM_ITS ---
History of Present Illness Date of Admission: 10/03/18 Chief Complaint: nausea, vomiting. The patient is a 58 year old F with an extensive PMH as listed. She was admitted through the ED on 10/02/2018 with a complaint of generalized malaise and weakness as well as nausea. Patient was admitted just discharged last week after she was admitted with chest pain and a stress that none was negative. Patient since then she went home and has not been feeling well and is barely able to move around. She was missed 2 sessions of dialysis and also missed taking her therapy session last Sunday. She had worsening nausea and vomiting and also felt bloated so she decided to come into the ED today. Review of systems was positive for anorexia and some vomiting, as well as a dry cough. She denied any fever, chest pain, chills, palpitations or dizziness. In the ED, vitals were stable. Chemistry was significant for creatinine of 9.91 and bicarb of 33 as well as potassium of 3.2. Initial troponin was negative. CBC was remarkable for platelet of 131 and hemoglobin of 10.5. Chest x-ray showed interval increase in large right medial lung opacification which could represent worsening pneumonia, worsening lung cancer or progression of postradiation pneumonitis if patient underwent radiation to this area. She has been admitted to manage for worsening debility and fluid overload and uremia due to missed dialysis[] Past Medical History Past Medical History (Chronic Problems): Chronic Problems Endometrial cancer (Chronic) Status post hysterectomy, cystectomy and partial colectomy due to metastatic disease End-stage renal disease on hemodialysis (Chronic) History of hysterectomy for cancer (Chronic) History of nephrectomy (Chronic) Anemia of chronic renal failure (Chronic) Hypertension (Chronic) Obesity (BMI 30-39.9) (Chronic) History of colostomy (Chronic) History of ileal conduit (Chronic) Allergies No Known Allergies Allergy (Verified 10/02/18 17:54) Home Medications: Ambulatory Orders Medication Instructions Recorded Folic Acid 1 mg PO DAILY@0800 07/23/14 Ondansetron [Zofran] 8 mg PO Q8H PRN PRN 06/07/17 Amlodipine Besylate 10 mg PO DAILY 09/25/18 Chemotherapy FR 09/25/18 Metoprolol Tartrate 25 mg PO BID 09/25/18 Sucroferric Oxyhydroxide [Velphoro] 2 tab PO TID 09/25/18 Vitamin B Complex [B Complex] 1 tab PO DAILY 09/25/18 Acetaminophen [Tylenol Extra 500 mg PO DAILY PRN PRN 10/02/18 Strength] Hydrocodone Bit/Homatrop Me-Br 5 ml PO 4X/DAY 10/02/18 [Hydrocodone-Homatropine Soln] Surgical History: hysterectomy - for cervical cancer, - - Left nephrectomy for cancer with rt ileoconduit, Colostomy, Hysterectomy with BL RAHEEL, AVF RUE. 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 Maternal History Items: - - Denies known maternal medical history including cardiac history. Review of Systems Constitutional: Reports: Anorexia, Malaise, Weakness, Fatigue. Denies: Chills, Fever Eyes: Denies: Blurred vision HEENT: Denies: Head Aches, Sinus Congestion, Sinus Drainage Cardiovascular: Denies: Chest Pain, Palpitations Respiratory: Reports: Cough. Denies: Pleuritic Pain, Shortness of Breath, Shortness of breath at rest, Shortness of breath upon exertion, Sputum production, Wheezing Gastrointestinal: Reports: Nausea, Vomiting. Denies: Abdominal Pain Genitourinary: Denies: Dysuria Musculoskeletal: Denies: Joint Pain, Joint Tenderness Skin: Denies: Rash, Wounds Neurological: Denies: Numbness, Tingling, Focal weakness Psychiatric: Denies: Anxiety, Depression, Homicidal Ideations, Suicidal I deations Hematologic/ Lymphatic: Denies: Easy Bruising, Easy Bleeding VTE Information - Inpt Only VTE Present on Admission: No VTE Pharm Prophylaxis ordered?: Yes - Physical Exam General: Alert, Oriented x3, Cooperative, Lethargic, - - very frail HEENT: Atraumatic, PERRLA, EOMI, Normocephalic Oral: Dry Mucosa Neck: Supple, No JVD, Negative Carotid Bruits Lungs: Clear to auscultation, - - decreased breath sounds bibasally, no wheezes or crackles Cardiovascular: Regular rate, Regular Rhythm, Normal S1, Normal S2, No murmurs Abdomen: Bowel Sounds Present, Soft, Non Tender, Non-Distended, No Hepato- splenomegaly, - - has ileostomy bag and urostomy bag Extremities: No clubbing, No cyanosis, No edema, Capillary Refill Less than 3 Seconds, - - AV fistula in RUE with palpable thrill Skin: No rashes, No breakdown Musculoskeletal: Cachexia, Muscle Wasting Lymphatic: No Cervical, Supraclavicular, or Inguinal Adenopathy Neurological: Cranial nerves II-XII grossly intact, Neuro grossly intact Psych/Mental Status: Flat Affect, Alert and oriented to time, place, person, mood and affect Vital Signs Temp Pulse Resp BP Pulse Ox 97.8 F 91 20 H 116/58 L 100 10/02/18 20:21 10/02/18 21:17 10/02/18 21:17 10/02/18 17:51 10/02/18 20:21 Oxygen Delivery Method Room Air Weight: 182 lb Body Mass Index (BMI) 33.3 Intake and Output for Last 24 Hours 09/30/18 10/01/18 10/02/18 23:59 23:59 23:59 Output Total 300 / 300 Balance -300 / -300 Laboratory Tests Past 24 Hrs 10/02/18 10/02/18 20:19 20:19 WBC 7.9 RBC 4.49 Hgb 10.5 L Hct 38.4 MCV 85.5 MCH 23.4 L MCHC 27.3 L RDW Std Deviation 56.0 H RDW Coeff of Riya 17.8 H Plt Count 131 L MPV 10.2 Immature Gran % (Auto) 1.100 H Neut % (Auto) 79.3 H Lymph % (Auto) 12.2 L [place] % (Auto) 7.2 Eos % (Auto) 0.1 Baso % (Auto) 0.1 Absolute Neuts (auto) 6.3 Absolute Lymphs (auto) 0.97 Nucleated RBC % 0 Sodium 139 Potassium 3.2 L Chloride 98 Carbon Dioxide 33.0 H Anion Gap 8 BUN 38 H Creatinine 9.91 H* Estim Creat Clear Calc 5.01 Est GFR (MDRD) Af Amer 5 L Est GFR (MDRD) Non-Af 4 L BUN/Creatinine Ratio 3.8 L Glucose 80 Calcium 7.8 L Troponin I < 0.015 Diagnostic Data Chest X-Ray 10/02/18 19:53 IMPRESSION: Interval increase in large right medial lung opacification. This could represent worsening pneumonia, worsening lung cancer, or progression of post radiation pneumonitis if the patient underwent radiation to this area. Electronically Signed: Edward Mays, at 20:10 EDT Tel , Service support , Assessment/Plan 58 y/o admitted with a complaint of nausea and general weakness and malaise 1. Uremia due to missed dialysis * her symptoms of lethargy and nausea and vomiting are likely due to uremia from having missed 2 sessions of dialysis due to weakness * admit to PCU with telemetry * consult nephrology * patient says she always gets nausea with dialysis; says she is always nauseous, even when not in dialysis * counselled this could be due to metastatic cancer and her chemo sessions * will benefit from prophylactic zofran at home * for dialysis per nephro * * 2, ESRD: as under 1. goes for dialysis Sunday, and Sunday, but missed the last 2 sessions 3. Metastatic endometrial carcinoma with mets to the bladder, left kidney and lung. * Status post left nephrectomy. Ileostomy and urostomy. * CXR showed interval increase in large right medial lung opacification which could represent worsening pneumonia versus worsening lung cancer * In light of patient's symptoms like a fever and a productive cough, I think this is likely due to her worsening lung cancer. * Patient missed her last chemotherapy session. Patient's prognosis is very poor in light of extreme frailty and poor functional status. * Patient counseled about CODE STATUS and about hospice care. Patient states that she would be interested in being evaluated by hospice. We will consult hospice. * 4. Hypertension: Controlled. On amlodipine and metoprolol. Will continue. 5. Anemia of chronic disease: Stable. Moderate protein energy malnutrition:. BMI is 33.3. Patient however quite cachectic. Consult nutrition. DVT prophylaxis: heparin * Code Visit Inpatient E&M: 71030 Init Hosp L3
--- NOTE | 2018-10-02 21:56 | ED.RN ---
urine unable to produce urine due to being anuric
[2018-10-02 22:02] LABS: Anisocytosis 2+; Hypochromasia 1+; Platelet Estimate SLT DEC (ADEQ)
[2018-10-02 22:04] LABS: Differential Comment SCANNED
[2018-10-02 22:59] VITALS: BMI 24.3; BMI 24.4
[2018-10-02 23:00] VITALS: BP 137/69; PULSE 87; RESP 18; TEMP 37; O2SAT 99
[2018-10-02 23:03] VITALS: PULSE 86
[2018-10-03] VITALS (12 sets, daily range): BP systolic 111–126; BP diastolic 54–61; PULSE 68–91; RESP 16–18; TEMP 36.6–37.1; O2SAT 98–100
[2018-10-03] MEDS: Ondansetron 8 MG Tablet PO (05:08)
[2018-10-03] MEDS: Acetaminophen 500 MG Tablet PO ×2 (05:09→18:55)
[2018-10-03 06:57] LABS: Absolute Lymphocyte Count 0.99 X10^3/uL (0.83-4.51); Absolute Neutrophil Count 4.6 X10^3/uL (2.0-7.7); Basophil# 0.01 X10^3/uL; Basophil% 0.2 % (0-1); Eosinophil# 0.01 X10^3/uL; Eosinophils% 0.2 % (0-5); Hematocrit 34.6 % (37-47); Hemoglobin 9.3 g/dL (12.0-15.0); Lymphocyte # 0.99 X10^3/ul (4.0); Lymphocyte % 15.7 % (19-41); Mean Corp Hgb Conc 26.9 g/dL (32-36); Mean Corpuscular Hgb 23.5 pg (27.0-32.0); Mean Corpuscular Volume 87.6 fL (81-99); Mean Platelet Vol. 9.4 fl (6.2-12.0); Monocyte% 9.5 % (0-10); NRBC Flagged by Analyzer 0 % (0-5); Neutrophil # 4.64 X10^3/uL (2.7-7.7); Neutrophil % 73.3 % (47-70); Platelet Count 99 K/mm3 (150-450); RBC Distribution Width CV 18.1 % (11.6-14.6); RBC Distribution Width SD 57.9 fl (35.1-43.9); Red Blood Count 3.95 M/mm3 (4.2-5.4); White Blood Count 6.3 K/mm3 (4.4-11.0)
[2018-10-03] MEDS: Vitamin B Comp W-C Capsule 1 CAP PO (10:49)
[2018-10-03] MEDS: Heparin Injection (Vial) 5,000 UNIT/ML VIAL 5000 UNIT SC ×2 (10:50→21:47)
[2018-10-03] MEDS: Folic Acid 1 MG Tablet PO (10:50)
[2018-10-03] MEDS: SEVELAMER CARBONATE 800 MG TABLET 1600 MG PO ×2 (10:50→18:54)
[2018-10-03] MEDS: Metoprolol Tartrate 25 MG Tablet PO ×2 (10:51→21:46)
--- NOTE | 2018-10-03 11:45 | CASEMGMT ---
Addendum entered by Marlene Hameed 10/03/18 13:01: Pt's left a message, and he is here now. SW spoke w/, he is agreeable to meet w/hospice w/pt. SW called [facility], spoke w/Kristi, she will be here shortly. SW let pt and know. SW will continue to follow. CHAYA Patel Original Note: Hospice referral was put in and [facility] was called. Kristi from hospice called in and stated that they cannot get a hold of the . SW spoke w/pt in room, confirmed she is agreeable to speak w/hospice, verified 's numbers. Pt agreeable to SW calling so he can be here for meeting. SW called both numbers, messages left. Voice mails were generic so no details left. SW called hospice back and asked them to hold off on continuing to try to reach the until this SW can reach . SW will continue to follow. CHAYA Patel
--- NOTE | 2018-10-03 11:48 | CON.PCM_ITS ---
Problem List (1) End-stage renal disease on hemodialysis Status: Chronic Consultation - Renal PCP/ Referring MD: Requesting physician: [] Primary care physician: Lawrence Dozier DO - History of Present Illness History of Present Illness: The patient is a 58 year old F past medical history of end-stage renal disease on Sunday and Sunday hemodialysis schedule, metastatic uterine cancer on chemotherapy, anemia, hypertension status post ileal conduit with colostomy. Patient presented to the emergency room last night with nausea, vomiting, poor appetite and malaise. Patient missed the last 2 session of hemodialysis because she was not feeling well. Patient was recently discharged from the hospital after she was admitted for chest pain. Patient states she has not been feeling well since she left the hospital. Patient also missed her last session of chemotherapy. Chest x-ray yesterday shows large right medial lung opacification which may be worsening lung metastasis versus pneumonitis/pneumonia. Patient complains that she gets nauseated whenever she goes to dialysis sessions. She states she tried Zofran but does not seem helping. Patient complaining of leg edema. Breathing is okay as per the patient. No chest pain. No diarrhea Review of system: 12 system review is negative except what mentioned in the HPI [] - Allergies Allergies: Allergies No Known Allergies Allergy (Verified 10/02/18 17:54) - Current Medications Current Medications: Current Medications Acetaminophen (Tylenol) 500 mg PO DAILY PRN PRN PRN Reason: PAIN Last Admin: 10/03/18 05:09 Dose: 500 mg Documented by: Amlodipine Besylate (Norvasc) 10 mg PO DAILY [facility] Dextrose (D50w Syringe) 0 gm IV X1 PRN; Protocol PRN Reason: Hypoglycemia Folic Acid (Folic Acid) 1 mg PO DAILY@0800 [facility] Last Admin: 10/03/18 10:50 Dose: 1 mg Documented by: Glucagon () 1 mg IM .X1 PRN PRN Reason: Hypoglycemia Heparin Sodium (Porcine) (Heparin Na) 5,000 unit SC Q12 [facility] Last Admin: 10/03/18 10:50 Dose: 5,000 unit Documented by: Hydrocodone Bit/Homatropine Methylb (Hycodan Syrup) 5 ml PO 4X/DAY PRN PRN PRN Reason: COUGH Last Admin: 10/03/18 05:08 Dose: 5 ml Documented by: Metoprolol Tartrate (Lopressor (Beta Jennifer)) 25 mg PO BID [facility] Last Admin: 10/03/18 10:51 Dose: 25 mg Documented by: Multivitamins (Allbee W/C Caplet, Thera B Comp/C) 1 capsule PO DAILYCM [facility] Last Admin: 10/03/18 10:49 Dose: 1 capsule Documented by: Ondansetron HCl (Zofran) 8 mg PO Q8H PRN PRN PRN Reason: NAUSEA Last Admin: 10/03/18 05:08 Dose: 8 mg Documented by: Ondansetron HCl (Zofran) 4 mg IV Q8H PRN PRN PRN Reason: NAUSEA/VOMITING Sevelamer Carbonate (Renvela) 1,600 mg PO TIDCM [facility] Last Admin: 10/03/18 10:50 Dose: 1,600 mg Documented by: Sodium Chloride () 10 - 40 ml IV UD PRN PRN Reason: SALINE FLUSH - Past Medical History Past Medical History (Chronic Problems): Chronic Problems Endometrial cancer (Chronic) Status post hysterectomy, cystectomy and partial colectomy due to metastatic disease End-stage renal disease on hemodialysis (Chronic) History of hysterectomy for cancer (Chronic) History of nephrectomy (Chronic) Anemia of chronic renal failure (Chronic) Hypertension (Chronic) Obesity (BMI 30-39.9) (Chronic) History of colostomy (Chronic) History of ileal conduit (Chronic) - Past Surgical History Surgical History: hysterectomy - for cervical cancer, - - Left nephrectomy for cancer with rt ileoconduit, Colostomy, Hysterectomy with BL RAHEEL, AVF RUE. - Social History Smoking Status: Former smoker - Family History Paternal History Items: - - Denies known paternal medical history including cardiac history. Maternal History Items: - - Denies known maternal medical history including cardiac history. - Physical Exam General: Alert, Oriented x3 HEENT: Atraumatic Oral: Moist Mucosa Neck: Supple, No JVD Lungs: - - Right lung Rales. Left lung is clear to auscultation Cardiovascular: Regular rate, Regular Rhythm, Normal S1, Normal S2 Abdomen: Bowel Sounds Present, Soft, Non Tender Extremities: No clubbing, No cyanosis, Edema - +2 edema of lower extremities upper extremities Musculoskeletal: Muscle Wasting Neurological: Neuro grossly intact Psych/Mental Status: Depressed Vital Signs Temp Pulse Resp BP Pulse Ox 97.9 F 90 16 126/59 H 98 10/03/18 10:18 10/03/18 10:51 10/03/18 10:18 10/03/18 10:51 10/03/18 10:18 Oxygen Flow Rate (L/min) 2 Oxygen Delivery Method Nasal Cannula Weight: 60.4 kg Body Mass Index (BMI) 24.3 Intake and Output for Last 24 Hours 10/01/18 10/02/18 10/03/18 23:59 23:59 23:59 Intake Total 60 / 60 120 / 120 Output Total 300 / 300 Balance -240 / -240 120 / 120 Laboratory Tests Past 24 Hrs 10/02/18 10/02/18 10/03/18 20:19 20:19 06:48 WBC 7.9 6.3 RBC 4.49 3.95 L Hgb 10.5 L 9.3 L Hct 38.4 34.6 L MCV 85.5 87.6 MCH 23.4 L 23.5 L MCHC 27.3 L 26.9 L RDW Std Deviation 56.0 H 57.9 H RDW Coeff of Riya 17.8 H 18.1 H Plt Count 131 L 99 L MPV 10.2 9.4 Immature Gran % (Auto) 1.100 H 1.100 H Neut % (Auto) 79.3 H 73.3 H Lymph % (Auto) 12.2 L 15.7 L [place] % (Auto) 7.2 9.5 Eos % (Auto) 0.1 0.2 Baso % (Auto) 0.1 0.2 Absolute Neuts (auto) 6.3 4.6 Absolute Lymphs (auto) 0.97 0.99 Nucleated RBC % 0 0 Differential Comment SCANNED Platelet Estimate SLT DEC Hypochromasia 1+ Anisocytosis 2+ Sodium 139 Potassium 3.2 L Chloride 98 Carbon Dioxide 33.0 H Anion Gap 8 BUN 38 H Creatinine 9.91 H* Estim Creat Clear Calc 5.01 Est GFR (MDRD) Af Amer 5 L Est GFR (MDRD) Non-Af 4 L BUN/Creatinine Ratio 3.8 L Glucose 80 Calcium 7.8 L Troponin I < 0.015 Urine Color Urine Clarity Urine pH Ur Specific [place] U Specif Grav (Refrac) Urine Protein Urine Glucose (UA) Urine Ketones Urine Occult Blood Urine Nitrite Urine Bilirubin Urine Urobilinogen Ur Leukocyte Esterase Urine RBC Urine WBC Ur Squamous Epith Cells Ur Transition Epith Cell Ur Renal Epithelial Cell Calcium Oxalate Crystal Uric Acid Crystals Triple Phos Crystals Other Crystals Amorphous Sediment Urine Bacteria Hyaline Casts Fine Granular Casts Coarse Granular Casts Waxy Casts RBC Casts WBC Casts Urine Mucus Urine Trichomonas Urine Yeast 10/03/18 08:00 WBC RBC Hgb Hct MCV MCH MCHC RDW Std Deviation RDW Coeff of Riya Plt Count MPV Immature Gran % (Auto) Neut % (Auto) Lymph % (Auto) [place] % (Auto) Eos % (Auto) Baso % (Auto) Absolute Neuts (auto) Absolute Lymphs (auto) Nucleated RBC % Differential Comment Platelet Estimate Hypochromasia Anisocytosis Sodium Potassium Chloride Carbon Dioxide Anion Gap BUN Creatinine Estim Creat Clear Calc Est GFR (MDRD) Af Amer Est GFR (MDRD) Non-Af BUN/Creatinine Ratio Glucose Calcium Troponin I Urine Color Cancelled Urine Clarity Cancelled Urine pH Cancelled Ur Specific [place] Cancelled U Specif Grav (Refrac) Cancelled Urine Protein Cancelled Urine Glucose (UA) Cancelled Urine Ketones Cancelled Urine Occult Blood Cancelled Urine Nitrite Cancelled Urine Bilirubin Cancelled Urine Urobilinogen Cancelled Ur Leukocyte Esterase Cancelled Urine RBC Cancelled Urine WBC Cancelled Ur Squamous Epith Cells Cancelled Ur Transition Epith Cell Cancelled Ur Renal Epithelial Cell Cancelled Calcium Oxalate Crystal Cancelled Uric Acid Crystals Cancelled Triple Phos Crystals Cancelled Other Crystals Cancelled Amorphous Sediment Cancelled Urine Bacteria Cancelled Hyaline Casts Cancelled Fine Granular Casts Cancelled Coarse Granular Casts Cancelled Waxy Casts Cancelled RBC Casts Cancelled WBC Casts Cancelled Urine Mucus Cancelled Urine Trichomonas Cancelled Urine Yeast Cancelled Assessment/Plan 1-End stage disease on Sunday and Sunday hemodialysis schedule. Patient goes to [facility] center. Patient missed the last 2 session of hemodialysis. I will arrange for hemodialysis session today. We will use 4 potassium dialysate. We will try 2-3 L ultrafiltration. We will give the patient Phenergan prior to hemodialysis session. Hemodialysis access is right upper extremity AV fistula. 2-anemia: I will avoid GREG given the active cancer. 3-bone mineral disease: Continue sevelamer with meals. Check phosphorus level since the patient has poor appetite and her phosphorus level might be low. 4-hypertension: Blood pressure is well controlled. Continue same blood pressure medications 5-fluid overload from missing 2 sessions of hemodialysis. We will try 2-3 liters ultrafiltration's Thank you for the consult. Renal team will continue to follow. Plan of care was discussed with the nurse practitioner Lisa Morales MD [phone]
--- NOTE | 2018-10-03 13:00 | CASEMGMT ---
LW /POAncelmo in echart, SW printed and placed in chart. CHAYA Patel
--- NOTE | 2018-10-03 13:11 | PCM.PROGNOTE ---
Subjective: Patient seen and examined. Flat affect. Reports she feels generally weak and fatigued. Denies further nausea, vomiting. She does report she typically gets nauseous during dialysis treatment. Discussed hospice with patient and she was willing to talk with them. However during discussion with hospice service liaison representative, patient reports she would like to continue chemotherapy treatment and dialysis. She is previously established with palliative care. - Physical Exam General: Alert, Oriented x3, Cooperative HEENT: Atraumatic, PERRLA, EOMI, Normocephalic Oral: Dry Mucosa Neck: Supple, No JVD, Negative Carotid Bruits Lungs: Clear to auscultation, Diminished Cardiovascular: Regular rate, Regular Rhythm, Normal S1, Normal S2, No murmurs Abdomen: Bowel Sounds Present, Soft, Non Tender, Non-Distended, - - Ileostomy and urostomy present. Extremities: No clubbing, No cyanosis, No edema, Capillary Refill Less than 3 Seconds, - - Right upper extremity fistula. Skin: No rashes, No breakdown Musculoskeletal: No Tenderness to Palpation of Joints or Extremities, Cachexia, Muscle Wasting Neurological: Cranial nerves II-XII grossly intact, Neuro grossly intact Psych/Mental Status: Flat Affect Vital Signs Temp Pulse Resp BP Pulse Ox 97.9 F 90 16 126/59 H 98 10/03/18 10:18 10/03/18 10:51 10/03/18 10:18 10/03/18 10:51 10/03/18 10:18 Oxygen Flow Rate (L/min) 2 Oxygen Delivery Method Nasal Cannula Weight: 133 lb 2.547 oz Body Mass Index (BMI) 24.3 Intake and Output for Last 24 Hours 10/01/18 10/02/18 10/03/18 23:59 23:59 23:59 Intake Total 60 / 60 240 / 240 Output Total 300 / 300 Balance -240 / -240 240 / 240 Laboratory Tests Past 24 Hrs 10/02/18 10/02/18 10/03/18 20:19 20:19 06:48 WBC 7.9 6.3 RBC 4.49 3.95 L Hgb 10.5 L 9.3 L Hct 38.4 34.6 L MCV 85.5 87.6 MCH 23.4 L 23.5 L MCHC 27.3 L 26.9 L RDW Std Deviation 56.0 H 57.9 H RDW Coeff of Riya 17.8 H 18.1 H Plt Count 131 L 99 L MPV 10.2 9.4 Immature Gran % (Auto) 1.100 H 1.100 H Neut % (Auto) 79.3 H 73.3 H Lymph % (Auto) 12.2 L 15.7 L [place] % (Auto) 7.2 9.5 Eos % (Auto) 0.1 0.2 Baso % (Auto) 0.1 0.2 Absolute Neuts (auto) 6.3 4.6 Absolute Lymphs (auto) 0.97 0.99 Nucleated RBC % 0 0 Differential Comment SCANNED Platelet Estimate SLT DEC Hypochromasia 1+ Anisocytosis 2+ Sodium 139 Potassium 3.2 L Chloride 98 Carbon Dioxide 33.0 H Anion Gap 8 BUN 38 H Creatinine 9.91 H* Estim Creat Clear Calc 5.01 Est GFR (MDRD) Af Amer 5 L Est GFR (MDRD) Non-Af 4 L BUN/Creatinine Ratio 3.8 L Glucose 80 Calcium 7.8 L Troponin I < 0.015 Urine Color Urine Clarity Urine pH Ur Specific [place] U Specif Grav (Refrac) Urine Protein Urine Glucose (UA) Urine Ketones Urine Occult Blood Urine Nitrite Urine Bilirubin Urine Urobilinogen Ur Leukocyte Esterase Urine RBC Urine WBC Ur Squamous Epith Cells Ur Transition Epith Cell Ur Renal Epithelial Cell Calcium Oxalate Crystal Uric Acid Crystals Triple Phos Crystals Other Crystals Amorphous Sediment Urine Bacteria Hyaline Casts Fine Granular Casts Coarse Granular Casts Waxy Casts RBC Casts WBC Casts Urine Mucus Urine Trichomonas Urine Yeast 10/03/18 08:00 WBC RBC Hgb Hct MCV MCH MCHC RDW Std Deviation RDW Coeff of Riya Plt Count MPV Immature Gran % (Auto) Neut % (Auto) Lymph % (Auto) [place] % (Auto) Eos % (Auto) Baso % (Auto) Absolute Neuts (auto) Absolute Lymphs (auto) Nucleated RBC % Differential Comment Platelet Estimate Hypochromasia Anisocytosis Sodium Potassium Chloride Carbon Dioxide Anion Gap BUN Creatinine Estim Creat Clear Calc Est GFR (MDRD) Af Amer Est GFR (MDRD) Non-Af BUN/Creatinine Ratio Glucose Calcium Troponin I Urine Color Cancelled Urine Clarity Cancelled Urine pH Cancelled Ur Specific [place] Cancelled U Specif Grav (Refrac) Cancelled Urine Protein Cancelled Urine Glucose (UA) Cancelled Urine Ketones Cancelled Urine Occult Blood Cancelled Urine Nitrite Cancelled Urine Bilirubin Cancelled Urine Urobilinogen Cancelled Ur Leukocyte Esterase Cancelled Urine RBC Cancelled Urine WBC Cancelled Ur Squamous Epith Cells Cancelled Ur Transition Epith Cell Cancelled Ur Renal Epithelial Cell Cancelled Calcium Oxalate Crystal Cancelled Uric Acid Crystals Cancelled Triple Phos Crystals Cancelled Other Crystals Cancelled Amorphous Sediment Cancelled Urine Bacteria Cancelled Hyaline Casts Cancelled Fine Granular Casts Cancelled Coarse Granular Casts Cancelled Waxy Casts Cancelled RBC Casts Cancelled WBC Casts Cancelled Urine Mucus Cancelled Urine Trichomonas Cancelled Urine Yeast Cancelled Medical Necessity - Tobacco Use Smoking Status: Former smoker Assessment/Plan 1. Uremia due to missed dialysis, N/V- nephrology consulted. Patient reports she gets nauseated with dialysis. PRN Phenergan. To undergo dialysis today. 2. End-stage renal disease on hemodialysis-dialysis schedule Sunday, , Sunday. Follows with [facility]. Consult nephrology. 3. 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 Status post ileostomy and colostomy. Patient has chemotherapy every Sunday. Status post left nephrectomy. Wishes to continue with chemotherapy treatment. Consult Dr. Arteaga. 4. Hypertension-continue home metoprolol, amlodipine regimen. 5. Anemia of chronic disease-stable, trend CBC. 6. Moderate protein calorie malnutrition-as evidenced by poor oral intake, recent weight loss and cachectic appearance. Nutrition consult. 7. Debility, functional decline- PT/OT. Patient agreeable to hospice consult however during hospice evaluation, patient stated that she would like to continue chemotherapy and dialysis regimen. She has already established with palliative care. We will continue to evaluate. Will consult oncology as noted above. DVT prophylaxis- heparin sc CODE STATUS: Patient wishes to remain full code at this time. We will continue to address CODE STATUS with patient and POA. This patient was seen by KVNG Krause under the supervision of Dr. Coon.
--- NOTE | 2018-10-03 14:15 | CASEMGMT ---
Jet from hospice met w/pt and . Pt indicated to Jet that she would like to continue dialysis and chemo treatment at this time. Pt is current w/palliative care and will continue with this. Pt did also indicate to Jet that he does not want to go to a correction. SW remains available for any additional services. CHAYA Patel
[2018-10-03] MEDS: proMETHazine 25 MG/ML Syringe 12.5 MG IV (14:53)
[2018-10-03] MEDS: 0.9% NaCl Peripheral Flush Adult/Peds IV (14:53)
[2018-10-03] MEDS: Ondansetron 4 MG/2 ML Vial IV (16:59)
--- NOTE | 2018-10-03 18:54 | DIALYSIS ---
hemodialysis completed x 3.5 hrs. 4K bath. Access via [facility] AVF. fluid removal 800ml. See HD flowsheet on chart. report to Rose CABA.
[2018-10-04] VITALS (12 sets, daily range): BP systolic 96–127; BP diastolic 52–59; PULSE 63–77; RESP 16–18; TEMP 36.4–36.8; O2SAT 92–100
[2018-10-04 05:44] LABS: Hemoglobin 9.5 g/dL (12.0-15.0); Mean Corp Hgb Conc 27.9 g/dL (32-36); Mean Corpuscular Hgb 23.5 pg (27.0-32.0); Mean Corpuscular Volume 84.2 fL (81-99); Mean Platelet Vol. 10.4 fl (6.2-12.0); Platelet Count 101 K/mm3 (150-450); Red Blood Count 4.04 M/mm3 (4.2-5.4); White Blood Count 5.9 K/mm3 (4.4-11.0)
[2018-10-04 06:07] LABS: Anion Gap 4 (5-15); BUN 20 mg/dL (7-18); BUN/Creat Ratio 3.2 RATIO (10-20); Calcium,Total 6.9 mg/dL (8.5-10.1); Chloride 102 mmol/L (98-107); Creatinine, Serum 6.22 mg/dL (0.55-1.02); EST Glomerular Filtration Rate 7 mL/min (>60); Est Glom Filt Rate - Afr Amer 9 mL/min (>60); Estimated Creatinine Clearance 7.99 ml/min; Glucose 66 mg/dL (74-106); Potassium 3.9 mmol/L (3.5-5.1); Sodium Level 137 mmol/L (136-145)
[2018-10-04 06:29] LABS: Phosphorus 2.5 mg/dL (2.5-4.9)
--- NOTE | 2018-10-04 08:18 | CON.PCM_ITS ---
Problem List (1) Endometrial cancer Status: Chronic Comment: Status post hysterectomy, cystectomy and partial colectomy due to metastatic disease (2) Anemia of chronic renal failure Status: Chronic Qualifiers: (3) End-stage renal disease on hemodialysis Status: Chronic (4) Shortness of breath Status: Acute - Consult Date of Consult: 10/04/[address] Coon regarding patient with metastatic cervical cancer and renal cell cancer who developed shortness of breath and chest x-ray changes. Final recommendation will be communicated by electronic medical records. - Reason for Consult History of Present Illness Date of Admission: 10/03/18 Chief Complaint: nausea, vomiting & shortness of breath The patient is a 58 year old F with an extensive PMH as listed. She was admitted through the ED on 10/02/2018 with a complaint of generalized malaise and weakness as well as nausea. Patient was admitted just discharged last week after she was admitted with chest pain and shortness of breath. Patient since then she went home and has not been feeling well and is barely able to move around. She was missed 2 sessions of dialysis and also missed taking her therapy session last Sunday. She had worsening nausea and vomiting and also felt bloated so she decided to come into the ED today. Review of systems was positive shortness of breath as well as a dry cough. She denied any fever, chest pain, chills, palpitations or dizziness. In the ED, vitals were stable. Chemistry was significant for creatinine of 9.91 and bicarb of 33 as well as potassium of 3.2. Initial troponin was negative. CBC was remarkable for platelet of 131 and hemoglobin of 10.5. Chest x-ray showed interval increase in large right medial lung opacification which could represent worsening pneumonia, worsening lung cancer or progression of post-radiation pneumonitis if patient underwent radiation to this area. Oncologic history / Previous treatment: Left radical nephrectomy in 2009 for renal cell carcinoma. 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 Stereotactic radiation therapy for lung metastasis right middle lobe in 2014 Additional palliative radiation therapy to the trachea and right lung in 2017 Chemotherapy paclitaxel Immunotherapy neratinib Current treatment: Torisel based on [facility] result Past Medical History Past Medical History (Chronic Problems): Chronic Problems Endometrial cancer (Chronic) Status post hysterectomy, cystectomy and partial colectomy due to metastatic disease End-stage renal disease on hemodialysis (Chronic) History of hysterectomy for cancer (Chronic) History of nephrectomy (Chronic) Anemia of chronic renal failure (Chronic) Hypertension (Chronic) Obesity (BMI 30-39.9) (Chronic) History of colostomy (Chronic) History of ileal conduit (Chronic) Allergies No Known Allergies Allergy (Verified 10/02/18 17:54) Home Medications: Ambulatory Orders Medication Instructions Recorded Folic Acid 1 mg PO DAILY@0800 07/23/14 Ondansetron [Zofran] 8 mg PO Q8H PRN PRN 06/07/17 Amlodipine Besylate 10 mg PO DAILY 09/25/18 Chemotherapy FR 09/25/18 Metoprolol Tartrate 25 mg PO BID 09/25/18 Sucroferric Oxyhydroxide [Velphoro] 2 tab PO TID 09/25/18 Vitamin B Complex [B Complex] 1 tab PO DAILY 09/25/18 Acetaminophen [Tylenol Extra 500 mg PO DAILY PRN PRN 10/02/18 Strength] Hydrocodone Bit/Homatrop Me-Br 5 ml PO 4X/DAY 10/02/18 [Hydrocodone-Homatropine Soln] Surgical History: hysterectomy - for cervical cancer, - - Left nephrectomy for cancer with rt ileoconduit, Colostomy, Hysterectomy with BL RAHEEL, AVF RUE. 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 Maternal History Items: - - Denies known maternal medical history including cardiac history. Review of Systems Constitutional: Reports: Anorexia, Malaise, Weakness, Fatigue. Denies: Chills, Fever Eyes: Denies: Blurred vision HEENT: Denies: Head Aches, Sinus Congestion, Sinus Drainage Cardiovascular: Denies: Chest Pain, Palpitations Respiratory: Reports: Cough. Denies: Pleuritic Pain, Shortness of Breath, Shortness of breath at rest, Shortness of breath upon exertion, Sputum production, Wheezing Gastrointestinal: Reports: Nausea, Vomiting. Denies: Abdominal Pain Genitourinary: Denies: Dysuria Musculoskeletal: Denies: Joint Pain, Joint Tenderness Skin: Denies: Rash, Wounds Neurological: Denies: Numbness, Tingling, Focal weakness Psychiatric: Denies: Anxiety, Depression, Homicidal Ideations, Suicidal Ideations Hematologic/ Lymphatic: Denies: Easy Bruising, Easy Bleeding - Physical Exam General: Alert, Oriented x3, Cooperative, Lethargic, - - very frail; She was coughing with difficulty clearing secretions this morning. HEENT: Atraumatic, PERRLA, EOMI, Normocephalic Oral: Dry Mucosa Neck: Supple, No JVD, Negative Carotid Bruits Lungs: No rhonchi, decreased breath sounds bibasally, no wheezes Cardiovascular: Regular rate, Regular Rhythm, Normal S1, Normal S2, No murmurs Abdomen: Bowel Sounds Present, Soft, Non Tender, Non-Distended, No Hepato- splenomegaly, - - has ileostomy bag and urostomy bag Extremities: No clubbing, No cyanosis, No edema, Capillary Refill Less than 3 Seconds, - - AV fistula in RUE with palpable thrill Skin: No rashes, No breakdown Musculoskeletal: Cachexia, Muscle Wasting Lymphatic: No Cervical, Supraclavicular, or Inguinal Adenopathy Neurological: Cranial nerves II-XII grossly intact, Neuro grossly intact Psych/Mental Status: Flat Affect, Alert and oriented to time, place, person, mood and affect Vital Signs Temp Pulse Resp BP Pulse Ox 97.8 F 91 20 H 116/58 L 100 10/02/18 20:21 10/02/18 21:17 10/02/18 21:17 10/02/18 17:51 10/02/18 20:21 Oxygen Delivery Method Room Air Weight: 182 lb Body Mass Index (BMI) 33.3 Laboratory Results - last 24 hr 10/03/18 10/04/18 10/04/18 08:00 05:14 05:14 WBC 5.9 RBC 4.04 L Hgb 9.5 L Hct 34.0 L MCV 84.2 MCH 23.5 L MCHC 27.9 L RDW Std Deviation 55.0 H RDW Coeff of Riya 18.0 H Plt Count 101 L MPV 10.4 Sodium Potassium Chloride Carbon Dioxide Anion Gap BUN Creatinine Estim Creat Clear Calc Est GFR (MDRD) Af Amer Est GFR (MDRD) Non-Af BUN/Creatinine Ratio Glucose Calcium Phosphorus 2.5 Urine Color Cancelled Urine Clarity Cancelled Urine pH Cancelled Ur Specific [place] Cancelled U Specif Grav (Refrac) Cancelled Urine Protein Cancelled Urine Glucose (UA) Cancelled Urine Ketones Cancelled Urine Occult Blood Cancelled Urine Nitrite Cancelled Urine Bilirubin Cancelled Urine Urobilinogen Cancelled Ur Leukocyte Esterase Cancelled Urine RBC Cancelled Urine WBC Cancelled Ur Squamous Epith Cells Cancelled Ur Transition Epith Cell Cancelled Ur Renal Epithelial Cell Cancelled Calcium Oxalate Crystal Cancelled Uric Acid Crystals Cancelled Triple Phos Crystals Cancelled Other Crystals Cancelled Amorphous Sediment Cancelled Urine Bacteria Cancelled Hyaline Casts Cancelled Fine Granular Casts Cancelled Coarse Granular Casts Cancelled Waxy Casts Cancelled RBC Casts Cancelled WBC Casts Cancelled Urine Mucus Cancelled Urine Trichomonas Cancelled Urine Yeast Cancelled 10/04/18 05:14 WBC RBC Hgb Hct MCV MCH MCHC RDW Std Deviation RDW Coeff of Riya Plt Count MPV Sodium 137 Potassium 3.9 Chloride 102 Carbon Dioxide 31.0 Anion Gap 4 L BUN 20 H Creatinine 6.22 H Estim Creat Clear Calc 7.99 Est GFR (MDRD) Af Amer 9 L Est GFR (MDRD) Non-Af 7 L BUN/Creatinine Ratio 3.2 L Glucose 66 L Calcium 6.9 L Phosphorus Urine Color Urine Clarity Urine pH Ur Specific [place] U Specif Grav (Refrac) Urine Protein Urine Glucose (UA) Urine Ketones Urine Occult Blood Urine Nitrite Urine Bilirubin Urine Urobilinogen Ur Leukocyte Esterase Urine RBC Urine WBC Ur Squamous Epith Cells Ur Transition Epith Cell Ur Renal Epithelial Cell Calcium Oxalate Crystal Uric Acid Crystals Triple Phos Crystals Other Crystals Amorphous Sediment Urine Bacteria Hyaline Casts Fine Granular Casts Coarse Granular Casts Waxy Casts RBC Casts WBC Casts Urine Mucus Urine Trichomonas Urine Yeast Diagnostic Data Chest X-Ray 10/02/18 19:53 IMPRESSION: Interval increase in large right medial lung opacification. This could represent worsening pneumonia, worsening lung cancer, or progression of post radiation pneumonitis if the patient underwent radiation to this area. Electronically Signed: Chippalmira Tabatha, at 20:10 EDT Tel , Service support , Assessment/Plan 58 y/o admitted with a complaint of nausea and general weakness and malaise. Chest x-ray findings suspicious for either recurrent cancer, pneumonitis or pneumonia. -Palliative performance score < 60%; overall prognosis poor if patient has progression of renal cell cancer. -Currently receiving Torisel Recommendations: -CT chest without contrast for further evaluation of new finding on chest x-ray and for dyspnea. -Hemodialysis per nephrology -Hold Torisel -Consider hospice/palliative care consult? cc: Dr. Eric Arteaga; Lawrence Dozier; Dr. Arlene Ag; Dr. Elena Morales
--- NOTE | 2018-10-04 08:24 | CT_ITS ---
STUDY: CT CHEST WITHOUT CONTRAST REASON FOR EXAM: Female, 58 years old. Cough, weakness and nausea. History of endometrial carcinoma with lung metastasis. RADIATION DOSAGE (If Supplied By Facility): CTDIvol = ( 18.00 ) mGy, DLP = ( 620.58 ) mGycm TECHNIQUE: Transaxial imaging was performed without the administration of intravenous contrast material. Multiplanar coronal and sagittal images were reformatted. Individualized dose optimization techniques were used for this CT. COMPARISON: Comparison is made with prior study February 14, 2015. FINDINGS: There is volume loss of the right hemithorax with shift of the heart and mediastinal structures towards the right side of midline. There is evidence of a soft tissue density in the right paratracheal and right hilar regions with bronchiectasis just above the postradiation fibrosis and bronchiectasis. Small right pleural effusion. Small left pleural effusion. Pulmonary nodules are seen in the left hemithorax. The largest nodule is in the anterior aspect of the left upper lobe and this measures 9.1 mm. There are calcifications of the coronary arteries. There is mild cardiac enlargement. Minimal pericardial thickening. There are multiple small lymph nodes within the mediastinum, which are normal in size and morphology most compatible with reactive lymph hyperplasia. Normal hilar regions. Normal unenhanced pulmonary arteries. There is atherosclerotic calcification of the aortic arch with tortuosity and elongation of the aortic arch and descending thoracic aorta. There are degenerative changes of the thoracic spine. Diffuse skin thickening and subcutaneous edema surrounding the chest wall as well as the abdominal wall. Anasarca should be ruled out. 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 Small bilateral effusions. Left pulmonary nodules. Electronically Signed: Jose De Jesus Collado, at 10:45 EDT , Service support ,
--- NOTE | 2018-10-04 10:30 | PCM.PN.REN ---
Patient Problems: Active and Suspected Problems Shortness of breath (Acute) Subjective: Pt still nauseated today No vomiting. ordered breakfast this morning No CP. Breathing is stable - Physical Exam General: Alert, Oriented x3 HEENT: Atraumatic Neck: Supple, No JVD Lungs: Clear to auscultation, Normal air movement, No rhonchi, No wheeze Cardiovascular: Regular rate, Regular Rhythm, Normal S1, Normal S2 Abdomen: Bowel Sounds Present, Soft, Non Tender Extremities: No clubbing, No cyanosis, Edema - +1 edema of LE and UE Neurological: Neuro grossly intact Psych/Mental Status: Flat Affect Vital Signs Temp Pulse Resp BP Pulse Ox 98.0 F 72 17 127/55 H 92 10/04/18 09:30 10/04/18 09:30 10/04/18 09:30 10/04/18 09:30 10/04/18 09:30 Oxygen Flow Rate (L/min) 2 Oxygen Delivery Method Nasal Cannula Weight: 60.4 kg Body Mass Index (BMI) 24.3 Intake and Output for Last 24 Hours 10/02/18 10/03/18 10/04/18 23:59 23:59 23:59 Intake Total 60 / 60 430 / 430 50 / 50 Output Total 300 / 300 810 / 810 150 / 150 Balance -240 / -240 -380 / -380 -100 / -100 Laboratory Tests Past 24 Hrs 10/04/18 10/04/18 10/04/18 05:14 05:14 05:14 WBC 5.9 RBC 4.04 L Hgb 9.5 L Hct 34.0 L MCV 84.2 MCH 23.5 L MCHC 27.9 L RDW Std Deviation 55.0 H RDW Coeff of Riya 18.0 H Plt Count 101 L MPV 10.4 Sodium 137 Potassium 3.9 Chloride 102 Carbon Dioxide 31.0 Anion Gap 4 L BUN 20 H Creatinine 6.22 H Estim Creat Clear Calc 7.99 Est GFR (MDRD) Af Amer 9 L Est GFR (MDRD) Non-Af 7 L BUN/Creatinine Ratio 3.2 L Glucose 66 L Calcium 6.9 L Phosphorus 2.5 Medical Necessity - Tobacco Use Smoking Status: Former smoker Assessment/Plan All Active Problems Shortness of breath (Acute) 1-End stage disease on Sunday and Sunday hemodialysis schedule. Patient goes to [place] [facility]. Patient missed the last 2 session of hemodialysis before presenting to the hospital Pt was dialyzed yesterday with 800 cc UF Next HD session tomorrow Hemodialysis access is right upper extremity AV fistula. 2-anemia: I will avoid GREG given the active cancer. RBC transfusion when Hgb < 7.0 3-bone mineral disease: Continue sevelamer with meals. Phos level is 2.5 on 10/04 4-hypertension: Blood pressure is in the low side. I will d/c Norvasc Continue to monitor BP 5-fluid overload from missing 2 sessions of hemodialysis. Pt could not tolerate high UF bc her BP dropped Will d/c Norvasc Hopefully tomorrow she would tolerate more UF 6- cervical CA with renal cell CA. management as per oncology hospice was consulted too Renal team will continue to follow. Plan of care was discussed with the nurse practitioner Lisa Morales MD [phone]
[2018-10-04] MEDS: Vitamin B Comp W-C Capsule 1 CAP PO (10:51)
[2018-10-04] MEDS: Metoprolol Tartrate 25 MG Tablet PO ×2 (10:51→22:54)
[2018-10-04] MEDS: Folic Acid 1 MG Tablet PO (10:51)
[2018-10-04] MEDS: Heparin Injection (Vial) 5,000 UNIT/ML VIAL 5000 UNIT SC ×2 (10:51→22:54)
[2018-10-04] MEDS: SEVELAMER CARBONATE 800 MG TABLET 1600 MG PO (10:52)
--- NOTE | 2018-10-04 11:37 | CT_ITS ---
STUDY: CT ABDOMEN AND PELVIS WITH CONTRAST REASON FOR EXAM: Female, 58 years old. History of endometrial carcinoma. Prior gastric bypass surgery as well as left nephrectomy and the hysterectomy with bilateral salpingooophorectomy. History of colostomy. RADIATION DOSAGE (If Supplied By Facility): CTDIvol = ( 15.45 ) mGy, DLP = ( 914.73 ) mGycm TECHNIQUE: Transaxial images were obtained from the dome of the diaphragm to the symphysis pubis without oral contrast. 100 IV Isovue 300 was administered. Sagittal and coronal images were reconstructed. Individualized dose optimization techniques were used for this CT. COMPARISON: Comparison is made with prior study dated June 13, 2018. FINDINGS: Persistent consolidation with bronchiectasis and effusion at the right lung base suggestive of probable post radiation fibrosis and post obstructive pneumonitis. Small left pleural effusion. Coronary artery calcification. Diffuse skin thickening and fluid within the subcutaneous tissues overlying the thorax and abdomen. Small amount of perihepatic fluid. Hepatomegaly. Pericholecystic fluid. Normal spleen. Normal pancreas. Normal bilateral adrenal glands. There is severe cortical atrophy of the right kidney, consistent with chronic medical renal disease. Right sided hydronephrosis and the right hydroureter.. The left kidney is not visualized in keeping with the prior nephrectomy. Normal visualized stomach. Normal small intestine. Left lower quadrant ostomy. Once again, nondilated bowel loops are seen in the left-sided ostomy with that of fluid along the dependent portion. This is unchanged. There is diffuse atherosclerotic calcification of the abdominal aorta, without a demonstrated aneurysm. Normal inferior vena cava. Normal retroperitoneum. A normal urinary bladder is not visualized. Moderate sized stable air-fluid level is seen in the region of the pelvis most likely at the site of the urinary bladder. Surgical clips are seen at that site. Diffuse abdominal wall edema. There are diffuse degenerative changes of the visualized lumbar spine. CT/Abdomen/Pelvis WITH Contrast IMPRESSION: Stable consolidation and bronchiectasis in the right lower lobe with small bilateral effusions. Small amount of ascites. Diffuse abdominal wall and thoracic wall edema. Complex abdominal wall hernia in the left lower quadrant containing fluid and nondilated bowel loops. Severe right-sided renal atrophy and mild right hydronephrosis and hydroureter. Air-fluid level in the pelvis at the site of the urinary bladder. Clinical correlation is recommended. Electronically Signed: Jose De Jesus Collado, at 14:03 EDT , Service support ,
--- NOTE | 2018-10-04 13:00 | CASEMGMT ---
RN CM assessment; Face to Face with patient for initial transition planning/care coordination assessment. RN CM introduced self and role at [facility], pt voices understanding and consents to assessment at this time. Pt is sitting up in bed at this time. Pt is coughing every couple words and c/o nausea at this time. Pt is A/Ox4 at this time and answers all questions appropriately at this time. Care providers, pharmacy, and demographics verified/updated at this time. PCP: Jacoby Specialists: Jenni, onc; Suzette nephro Preferred Pharmacy: [place] Insurance: [facility] Prescription Benefit: [facility] Living Will/HPOA: Pt has LW/HPOA and they are on file at [facility] at this time. Pt's , Bharathi Nelson, is HPOA. LNOK: Bharathi Nelson, ; Octavia Sanchez, sister; Liz, sister Living Arrangements: Pt states lives with in mobile home with about 4 steps into home and states no concerns at home at this time. Pt states that assists with ADL's and pt states spends most days sitting in chair. Pt states does not work and he is there 'most of time.' Transportation: Pt states drives and states no transportation concerns at this time. DME/HHC: Pt states has the following DME: cane, walker, nebulizer and 2 liters home oxygen set up thru [facility]. Pt states no need for any further DME at this time. Pt has OP dialysis on T,T,S at [facility] [place]. While this RN CM was asking about dialysis, pt comments that she has a lot on her mind and a lot to think about. This RN CM asks what she means regarding this and she states that it's in regards to hospice and them coming to talk to her yesterday. This RN CM asked her what she thought about hospice and if she understood it all. Pt states that she feels she understands it and states 'I am just tired and I just don't want to have chemo or go to dialysis anymore. I wish my family could understand what I feel like.' Pt states 'I know that even if I stay on chemo/dialysis that I won't live more than 6 months.' Pt states that she would like to go on hospice but she would like to see if hospice would be willing to come and have a family meeting with her and sisters so that they can all be educated. Pt would like SW/Hospice to call sisters to set up time for meeting. Abdirahman PABON aware, voices understanding. Pt voiced no further questions/concerns regarding hospice at this time. Pt Goal: Hospice Plan: Hospice [facility] vs Home w/ Hospice, pending family meeting. Valeri CABA CM
--- NOTE | 2018-10-04 14:00 | PN_ITS ---
<Lisa Plummer - Last Filed: 10/04/18 14:07> Patient Problems: Active and Suspected Problems Shortness of breath (Acute) Subjective: Patient seen and examined. Continues to complain of general fatigue and malaise. Now agreeable to hospice however would like to have family meeting with her sisters and . - Physical Exam General: Alert, Oriented x3, Cooperative, - - Appears frail HEENT: Atraumatic, PERRLA, EOMI, Normocephalic Oral: Dry Mucosa Neck: Supple, No JVD, Negative Carotid Bruits Lungs: Clear to auscultation, Diminished Cardiovascular: Regular rate, Regular Rhythm, Normal S1, Normal S2, No murmurs Abdomen: Bowel Sounds Present, Soft, Non Tender, Non-Distended, - - Ileostomy and urostomy present. Extremities: No clubbing, No cyanosis, No edema, Capillary Refill Less than 3 Seconds, - - Right upper extremity fistula. Skin: No rashes, No breakdown Musculoskeletal: No Tenderness to Palpation of Joints or Extremities, Cachexia, Muscle Wasting Neurological: Cranial nerves II-XII grossly intact, Neuro grossly intact Psych/Mental Status: Flat Affect Vital Signs Temp Pulse Resp BP Pulse Ox 98.0 F 74 17 127/55 H 92 10/04/18 09:30 10/04/18 11:02 10/04/18 09:30 10/04/18 10:51 10/04/18 09:30 Oxygen Flow Rate (L/min) 2 Oxygen Delivery Method Nasal Cannula Weight: 133 lb 2.547 oz Body Mass Index (BMI) 24.3 Intake and Output for Last 24 Hours 10/02/18 10/03/18 10/04/18 23:59 23:59 23:59 Intake Total 60 / 60 430 / 430 290 / 290 Output Total 300 / 300 810 / 810 225 / 225 Balance -240 / -240 -380 / -380 65 / 65 Laboratory Tests Past 24 Hrs 10/04/18 10/04/18 10/04/18 05:14 05:14 05:14 WBC 5.9 RBC 4.04 L Hgb 9.5 L Hct 34.0 L MCV 84.2 MCH 23.5 L MCHC 27.9 L RDW Std Deviation 55.0 H RDW Coeff of Riya 18.0 H Plt Count 101 L MPV 10.4 Sodium 137 Potassium 3.9 Chloride 102 Carbon Dioxide 31.0 Anion Gap 4 L BUN 20 H Creatinine 6.22 H Estim Creat Clear Calc 7.99 Est GFR (MDRD) Af Amer 9 L Est GFR (MDRD) Non-Af 7 L BUN/Creatinine Ratio 3.2 L Glucose 66 L Calcium 6.9 L Phosphorus 2.5 Medical Necessity - Tobacco Use Smoking Status: Former smoker Assessment/Plan All Active Problems Shortness of breath (Acute) 1. Uremia due to missed dialysis, N/V- nephrology consulted. Patient reports she gets nauseated with dialysis. PRN Phenergan. 2. End-stage renal disease on hemodialysis-dialysis schedule Sunday, , Sunday. Follows with [place] [facility]. Nephrology consulted. 3. 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 Status post ileostomy and colostomy. Patient has chemotherapy every Sunday. Status post left nephrectomy. Wishes to continue with chemotherapy treatment. Follows with Dr. Arteaga. Dr. Alvarenga consulted, recommended repeat CT of chest. Also recommended hospice consult given poor prognosis. 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 Hospice consult/family meeting pending. 4. Hypertension-continue home metoprolol, amlodipine regimen. 5. Anemia of chronic disease-stable, trend CBC. 6. Severe protein calorie malnutrition-as evidenced by poor oral intake, recent weight loss and cachectic appearance. Nutrition consult. 7. Debility, functional decline- PT/OT. Repeat hospice consult pending. 8. Abnormal vaginal discharge- concern for rectovaginal fistula. CT abdomen pending. DVT prophylaxis- heparin sc CODE STATUS: DNR CCA Discharge planning: Patient agreeable to hospice however would like to have family meeting with hospice along with her and sister. This patient was seen by KVNG Krause under the supervision of Dr. Lopes. <Filemon Lopes F - Last Filed: 10/04/18 14:30> - Physical Exam Vital Signs Temp Pulse Resp BP Pulse Ox 98.0 F 74 17 127/55 H 92 10/04/18 09:30 10/04/18 11:02 10/04/18 09:30 10/04/18 10:51 10/04/18 09:30 Oxygen Flow Rate (L/min) 2 Oxygen Delivery Method Nasal Cannula Weight: 133 lb 2.547 oz Body Mass Index (BMI) 24.3 Intake and Output for Last 24 Hours 10/02/18 10/03/18 10/04/18 23:59 23:59 23:59 Intake Total 60 / 60 430 / 430 290 / 290 Output Total 300 / 300 810 / 810 225 / 225 Balance -240 / -240 -380 / -380 65 / 65 Laboratory Tests Past 24 Hrs 10/04/18 10/04/18 10/04/18 05:14 05:14 05:14 WBC 5.9 RBC 4.04 L Hgb 9.5 L Hct 34.0 L MCV 84.2 MCH 23.5 L MCHC 27.9 L RDW Std Deviation 55.0 H RDW Coeff of Riya 18.0 H Plt Count 101 L MPV 10.4 Sodium 137 Potassium 3.9 Chloride 102 Carbon Dioxide 31.0 Anion Gap 4 L BUN 20 H Creatinine 6.22 H Estim Creat Clear Calc 7.99 Est GFR (MDRD) Af Amer 9 L Est GFR (MDRD) Non-Af 7 L BUN/Creatinine Ratio 3.2 L Glucose 66 L Calcium 6.9 L Phosphorus 2.5 Code Visit Addendum: Dr. Lopes I personally examined the patient and reviewed the chart. I agree with the above. 58-year-old female with end-stage renal disease on dialysis and stage IV endometrial cancer with metastasis to the lung, left kidney, and bladder status post hysterectomy, left nephrectomy, colostomy, and urostomy presented with worsening debility and weakness. She was recently admitted for chest pain and had a negative stress and cardiac work-up. Given the severity of her chronic illnesses advanced care planning was discussed for about 20 minutes in regards to hospice, she is agreeable to hospice family meeting with her and sister to discuss options. Inpatient E&M: 89896 Subs Hosp L2 Procedures: 66958 Advncd Care Plan 30 Min
[2018-10-04] MEDS: 0.9% NaCl Peripheral Flush Adult/Peds IV ×2 (14:06→22:54)
[2018-10-04] MEDS: Ondansetron 4 MG/2 ML Vial IV (14:07)
[2018-10-04] MEDS: oxyCODONE 5 MG Tablet PO ×2 (17:13→23:07)
--- NOTE | 2018-10-04 17:42 | CASEMGMT ---
Social Work Received referral from Taylor Stone, RNCM regarding hospice. SW met with pt in room and introduced self. Pt stating that she has had time to think about choices including hospice since her meeting with hospice yesterday and she has decided she is tired of being sick and wants to stop treatment and start on hospice. Pt expressing desire for her two sisters and to meet with hospice before she makes final decision. With pt permission, phone call to pt sister Octavia and explained to Octavia pt wishes. Octavia is supportive of pt and agreeable to meet with hospice. Phone call to Jet at [facility] and referral made. Jet contacted pt sisters who are agreeable to meet. Date and time not set yet. Jet is hopeful for meeting on Sunday. nursing made aware. Pt notified that Jet and pt sisters are arranging a meeting and pt is agreeable. ADARSH Brunner
[2018-10-05] VITALS (8 sets, daily range): BP systolic 101–114; BP diastolic 45–58; PULSE 71–90; RESP 16–17; TEMP 2.7–37.1; O2SAT 97–98
[2018-10-05 06:48] LABS: Anion Gap 4 (5-15); BUN 22 mg/dL (7-18); BUN/Creat Ratio 3.1 RATIO (10-20); Calcium,Total 6.9 mg/dL (8.5-10.1); Chloride 102 mmol/L (98-107); EST Glomerular Filtration Rate 6 mL/min (>60); Est Glom Filt Rate - Afr Amer 8 mL/min (>60); Glucose 93 mg/dL (74-106); Potassium 3.4 mmol/L (3.5-5.1); Sodium Level 138 mmol/L (136-145)
[2018-10-05] MEDS: Ondansetron 8 MG Tablet PO (11:28)
--- NOTE | 2018-10-05 11:34 | DS.PCM_ITS ---
<Lisa Plummer - Last Filed: 10/05/18 11:45> Discharge Date and Diagnosis Date of Admission: 10/03/18 Date of Discharge: 10/05/18 - Primary Discharge Diagnosis Active and Suspected Problems 1. Uremia due to missed dialysis 2. End-stage renal disease on hemodialysis 3. 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 4. Hypertension 5. Anemia of chronic disease 6. Severe protein calorie malnutrition 7. Debility, functional decline 8. Abnormal vaginal discharge, suspected fistula 9. Hospice transition - Secondary Discharge Diagnosis Chronic Problems Endometrial cancer (Chronic) Status post hysterectomy, cystectomy and partial colectomy due to metastatic disease End-stage renal disease on hemodialysis (Chronic) History of hysterectomy for cancer (Chronic) History of nephrectomy (Chronic) Anemia of chronic renal failure (Chronic) Hypertension (Chronic) Obesity (BMI 30-39.9) (Chronic) History of colostomy (Chronic) History of ileal conduit (Chronic) Hospital Course and Treatment Imaging Results: Diagnostic Data Chest X-Ray 10/02/18 19:53 IMPRESSION: Interval increase in large right medial lung opacification. This could represent worsening pneumonia, worsening lung cancer, or progression of post radiation pneumonitis if the patient underwent radiation to this area. Electronically Signed: Herman Mays, at 20:10 EDT Tel , Service support , Chest CT 10/04/18 08:24 IMPRESSION: Findings suggestive of post radiation fibrosis in the right hemithorax with her chronic scarring and bronchiectasis and volume loss as well as post obstructive pneumonitis. Small bilateral effusions. Left pulmonary nodules. Electronically Signed: Jose De Jesus Collado, at 10:45 EDT , Service support , Abdomen/Pelvis CT 10/04/18 11:37 IMPRESSION: Stable consolidation and bronchiectasis in the right lower lobe with small bilateral effusions. Small amount of ascites. Diffuse abdominal wall and thoracic wall edema. Complex abdominal wall hernia in the left lower quadrant containing fluid and nondilated bowel loops. Severe right-sided renal atrophy and mild right hydronephrosis and hydroureter. Air-fluid level in the pelvis at the site of the urinary bladder. Clinical correlation is recommended. Electronically Signed: Jose De Jesus Collado, at 14:03 EDT , Service support , Dr. King- Nephrology Dr. oswald- Hospice Dr. Alvarenga- Oncology Operations: None Procedures: Dialysis Summary of Care Provided: The patient is a 58 year old F admitted 10/03/2018 due to nausea and vomiting as well as generalized malaise and weakness. 1. Uremia due to missed dialysis, N/V-dialysis completed on admission however patient transitioning to hospice and does not wish to undergo further dialysis treatments. 2. End-stage renal disease on hemodialysis-dialysis schedule Sunday, , Sunday. Nephrology consulted during admission. 3. 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 Status post ileostomy and colostomy. Status post left nephrectomy. 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 Hospice transition. 4. Hypertension-continue home metoprolol, amlodipine regimen. 5. Anemia of chronic disease-stable. 6. Severe protein calorie malnutrition-as evidenced by poor oral intake, recent weight loss and cachectic appearance. Nutrition consult. 7. Debility, functional decline-inpatient hospice unit at discharge. 8. Abnormal vaginal discharge- concern for rectovaginal fistula. CT abdomen did not report fistula however still suspect based on exam. 9. Hospice transition General: Alert, Oriented x3, Cooperative, Appears frail HEENT: Atraumatic, PERRLA, EOMI, Normocephalic Oral: Dry Mucosa Neck: Supple, No JVD, Negative Carotid Bruits Lungs: Clear to auscultation, Diminished Cardiovascular: Regular rate, Regular Rhythm, Normal S1, Normal S2, No murmurs Abdomen: Bowel Sounds Present, Soft, Non Tender, Non-Distended, - - Ileostomy and urostomy present. Extremities: No clubbing, No cyanosis, No edema, Capillary Refill Less than 3 Seconds, - - Right upper extremity fistula. Skin: No rashes, No breakdown Musculoskeletal: No Tenderness to Palpation of Joints or Extremities, Cachexia, Muscle Wasting Neurological: Cranial nerves II-XII grossly intact, Neuro grossly intact Psych/Mental Status: Flat Affect Patient seen and examined prior to discharge. Physical assessment as noted above. This patient was seen by KVNG Krause under the supervision of Dr. Lopes. - Physical Exam Vital Signs Temp Pulse Resp BP Pulse Ox 98.3 F 84 17 109/58 L 97 10/05/18 08:28 10/05/18 08:28 10/05/18 08:28 10/05/18 08:28 10/05/18 08:28 Oxygen Flow Rate (L/min) 2 Oxygen Delivery Method Nasal Cannula Weight: 132 lb 15.02 oz Body Mass Index (BMI) 24.3 Intake and Output for Last 24 Hours 10/03/18 10/04/18 10/05/18 23:59 23:59 23:59 Intake Total 430 / 430 910 / 910 120 / 120 Output Total 810 / 810 225 / 225 0 / 0 Balance -380 / -380 685 / 685 120 / 120 Laboratory Tests Past 24 Hrs 10/05/18 06:00 Sodium 138 Potassium 3.4 L Chloride 102 Carbon Dioxide 32.0 Anion Gap 4 L BUN 22 H Creatinine 7.10 H Estim Creat Clear Calc 7.00 Est GFR (MDRD) Af Amer 8 L Est GFR (MDRD) Non-Af 6 L BUN/Creatinine Ratio 3.1 L Glucose 93 Calcium 6.9 L Home Medications: Medications to take at Discharge Folic Acid 1 mg PO DAILY@0800 07/23/14 Ondansetron [Zofran] 8 mg PO Q8H PRN PRN 06/07/17 Amlodipine Besylate 10 mg PO DAILY 09/25/18 Chemotherapy FR 09/25/18 Metoprolol Tartrate 25 mg PO BID 09/25/18 Sucroferric Oxyhydroxide [Velphoro] 2 tab PO TID 09/25/18 Vitamin B Complex [B Complex] 1 tab PO DAILY 09/25/18 Acetaminophen [Tylenol] 500 mg PO DAILY PRN PRN 10/02/18 Hydrocodone Bit/Homatrop Me-Br [Hydrocodone-Homatropine Soln] 5 ml PO 4X/DAY 10/02/18 Primary Care Physician: Lawrence Dozier DO [Primary Care Provider] - Please Follow Up With: Irwin,Caleb R, DO When: Hospice to follow at [place] Disposition: Hospice Medical Facility Minutes spent on discharge:: 35 Patient Condition:: Guarded Medical Necessity - Tobacco Use Smoking Status: Former smoker Meaningful Use Info Meaningful Use Diagnoses (Choose all that apply): None applicable <Filemon Lopes F - Last Filed: 10/05/18 14:09> Discharge Date and Diagnosis - Secondary Discharge Diagnosis Chronic Problems Endometrial cancer (Chronic) Status post hysterectomy, cystectomy and partial colectomy due to metastatic disease End-stage renal disease on hemodialysis (Chronic) History of hysterectomy for cancer (Chronic) History of nephrectomy (Chronic) Anemia of chronic renal failure (Chronic) Hypertension (Chronic) Obesity (BMI 30-39.9) (Chronic) History of colostomy (Chronic) History of ileal conduit (Chronic) Hospital Course and Treatment Summary of Care Provided: The patient is a 58 year old F [] - Physical Exam Vital Signs Temp Pulse Resp BP Pulse Ox 98.2 F 90 16 114/57 L 97 10/05/18 09:45 10/05/18 11:44 10/05/18 09:45 10/05/18 09:45 10/05/18 08:28 Oxygen Flow Rate (L/min) 2 Oxygen Delivery Method Nasal Cannula Weight: 132 lb 15.02 oz Body Mass Index (BMI) 24.3 Intake and Output for Last 24 Hours 10/03/18 10/04/18 10/05/18 23:59 23:59 23:59 Intake Total 430 / 430 910 / 910 120 / 120 Output Total 810 / 810 225 / 225 0 / 0 Balance -380 / -380 685 / 685 120 / 120 Laboratory Tests Past 24 Hrs 10/05/18 06:00 Sodium 138 Potassium 3.4 L Chloride 102 Carbon Dioxide 32.0 Anion Gap 4 L BUN 22 H Creatinine 7.10 H Estim Creat Clear Calc 7.00 Est GFR (MDRD) Af Amer 8 L Est GFR (MDRD) Non-Af 6 L BUN/Creatinine Ratio 3.1 L Glucose 93 Calcium 6.9 L Code Visit Addendum: Dr. Lopes I personally examined the patient and reviewed the chart. I agree with the above. 58-year-old female with end-stage renal disease on dialysis and stage IV endometrial cancer with metastasis to the lung, left kidney, and bladder status post hysterectomy, left nephrectomy, colostomy, and urostomy presented with worsening debility and weakness. She was recently admitted for chest pain and had a negative stress and cardiac work-up. Initially we had a discussion about hospice which she met with today with her family. She agreed to proceed with inpatient hospice and to forego any further chemotherapy or dialysis treatments. Inpatient E&M: [id number] [facility]
[2018-10-05] MEDS: oxyCODONE 5 MG Tablet PO (14:30)
--- NOTE | 2018-10-05 14:31 | DIALYSIS ---
HD x3 hours completed (ordered 3.5 hours), patient did not tolerate very well, tx stopped 30 mins early due to hospice meeting starting toward end of treatment, pt feeling unwell throughout treatment, accessed via [facility] AVF, UF -500mL (gain of 500mL) due to having to bolus patient post treatment for BP of 80s/40s, needles pulled and stasis achieved after 10 mins x2
--- NOTE | 2018-10-05 15:15 | NURSING ---
Report called to Tiffanie, nurse at Hospice.
== END 2018-10-05 15:04 | disposition hospice, inpatient (51) | DRG 682 ==
LOC: ED 20:42 → PCU 22:33
PROVIDERS: Internal Medicine Nephrology; Nurse Practitioner Family; Admitting Provider Student in an Organized Health Care Education/Training Program; Emergency Provider Emergency Medicine; Family Provider Student in an Organized Health Care Education/Training Program; PCP Student in an Organized Health Care Education/Training Program; Referring Provider Student in an Organized Health Care Education/Training Program; Visit Provider Family Medicine
DX: I12.0 Hypertensive chronic kidney disease with stage 5 chronic kidney disease or end stage renal disease (principal); N18.6 End stage renal disease; E43 Unspecified severe protein-calorie malnutrition; C78.00 Secondary malignant neoplasm of unspecified lung; N82.3 Fistula of vagina to large intestine; E87.70 Fluid overload, unspecified; D63.1 Anemia in chronic kidney disease; Z79.899 Other long term (current) drug therapy; Z99.81 Dependence on supplemental oxygen; Z99.2 Dependence on renal dialysis; Z93.6 Other artificial openings of urinary tract status; Z90.5 Acquired absence of kidney; Z87.891 Personal history of nicotine dependence; Z93.2 Ileostomy status; Z90.722 Acquired absence of ovaries, bilateral; Z90.79 Acquired absence of other genital organ(s); Z90.6 Acquired absence of other parts of urinary tract; Z85.528 Personal history of other malignant neoplasm of kidney; Z92.3 Personal history of irradiation; Z66 Do not resuscitate; C54.1 Malignant neoplasm of endometrium; Z51.5 Encounter for palliative care; Z68.33 Body mass index [BMI] 33.0-33.9, adult; E66.9 Obesity, unspecified; Z91.15 Patient's noncompliance with renal dialysis
CPT/HCPCS: 36415; 71045; 71250; 74177; 80048; 84100; 84484; 85025; 85027; 90937; 93005; 97802; 99285; 99406; J7030; Q9967; A4216; G0257; J2405